=== PATIENT | male | born 1975 | race Caucasian/White ===

== ENCOUNTER → 2016-09-22 | Outpatient (CLI) | payer OTHER ==
[~2016-09-22] MED LIST: AMOX875T PO; APIX1TAB PO; ASCO500T3 PO; AZIT250T PO; BUDE180I INH; CALC500C70 PO; CHOL2000 PO; CLR10 PO; CPRDOTS OT; CRD30 PO; DICL1GEL34 TOP; DILT40TA PO; DNSIS60 INJ; DOCU-94 PO; DOXY100T PO; EPP3/2 IM; FOLI1TAB7 PO; GFNSR600 PO; LEVA45AE INH; LEVA45AE PO; LEVO25TA PO; LORA-741 PO; MOME200A INH; MULT-513 PO; NYSS5 PO; NYSTCRE11 EXT; OMEG10007 PO; PEDI1CHW PO; PLMIN200 INH; PRED10TA PO; PRLSR20 PO; RHNAQIN NAE; SNG10 PO; SPRIN/30 INH; STEROIDS PO; SYN25 PO; TIOTCAP INH; TRAMTAB5 PO; WARF10TA4 PO; WARF5TAB7 PO; WARF5TAB90 PO; XOPENEX INH; antibiotic PO
--- NOTE | 2016-09-22 10:58 | DIAGNOSTIC IMAGING REPORT ---
LUMBAR SPINE 5 VIEWS HISTORY: ACUTE THIGH PAIN, RIGHT/LOW BACK PAIN COMPARISON: Lumbar spine 05/04/2010. FINDINGS: There is no fracture. Moderate levoscoliosis persists. The sacrum appears intact. The bones remain osteopenic. Mild superior endplate compression deformities at T11, L1, and L4. These remain unchanged from the 08/02/2016 CT. No acute fracture or subluxation within the lumbar spine. This bases are relatively preserved. Patchy areas of sclerosis within the bilateral femoral head remains unchanged and favors avascular necrosis. There is no femoral head collapse at this time. IMPRESSION: 1. Moderate levoscoliosis. 2. Osteopenia. 3. Old mild superior endplate compression deformities at T11, L1, and L4. 3. No acute fractures within the lumbar spine. Electronically signed by: Lobo Wilkins M.D. 09/22/2016 10:56 AM Dictated Date/Time: 09/22/2016 10:52 AM
--- NOTE | 2016-09-22 11:27 | DIAGNOSTIC IMAGING REPORT ---
RIGHT LOWER EXTREMITY VENOUS DOPPLER HISTORY: ACUTE THIGH PAIN, RIGHT/LOW BACK PAIN Right COMPARISON STUDY: None. FINDINGS: There is normal compressibility, flow, and augmentation within the right lower extremity deep venous system. IMPRESSION: No DVT within the right lower extremity Electronically signed by: Lobo Wilkins M.D. 09/22/2016 11:26 AM Dictated Date/Time: 09/22/2016 11:25 AM
== END | disposition home or self-care (01) ==
LOC: C.ULTRBC 10:11
PROVIDERS: ATTEND Nurse Practitioner
DX: M54.5 Low back pain (principal); M85.80 Other specified disorders of bone density and structure, unspecified site

== ENCOUNTER 2016-10-11 19:26 | Emergency (ER) | payer OTHER ==
[~2016-10-11] VITALS: Ht 190.5 cm; Wt 70.2 kg
[~2016-10-11 19:26] MED LIST changes: -AMOX875T PO; -AZIT250T PO; -BUDE180I INH; -CALC500C70 PO; -CHOL2000 PO; -CLR10 PO; -CPRDOTS OT; -DICL1GEL34 TOP; -DILT40TA PO; -DNSIS60 INJ; -DOXY100T PO; -EPP3/2 IM; -GFNSR600 PO; -LEVA45AE PO; -LEVO25TA PO; -LORA-741 PO; -MOME200A INH; -MULT-513 PO; -NYSS5 PO; -OMEG10007 PO; -PRED10TA PO; -PRLSR20 PO; -RHNAQIN NAE; -SPRIN/30 INH; -STEROIDS PO; -TRAMTAB5 PO; -WARF10TA4 PO; -WARF5TAB7 PO; -XOPENEX INH
[2016-10-11 19:28] VITALS: TEMP 36.9; Ht 190.5 cm; Wt 70.2 kg
[2016-10-11] MEDS ORDERED: LEVA45AE PO (19:50)
[2016-10-11] MEDS ORDERED: SODIUM CHLORIDE 0.9% 1000ML 1,000 ML IV ONE (20:00)
[2016-10-11 20:08] VITALS: O2SAT 94
[2016-10-11 20:17] LABS: BASO % 0.3 %; BASO ABS # 0.01 K/uL (0-0.2); COMPLETE YES; EOS % 0.3 %; HEMATOCRIT 43.5 % (42-52); IG% 0.7 %; LYMPH % 22.6 %; LYMPH ABS # 0.65 K/uL (1.2-3.4); MEAN CORPUSCULAR HEMOGLOBIN 30.5 pg (25-34); MEAN CORPUSCULAR HGB CONC 33.6 g/dl (32-36); MEAN PLATELET VOLUME 9.6 fL (7.4-10.4); MONO % 13.9 %; NEUT % 62.2 %; PLATELET COUNT 130 K/uL (130-400); RED BLOOD COUNT 4.78 M/uL (4.7-6.1); WHITE BLOOD COUNT 2.87 K/uL (4.8-10.8)
[2016-10-11 20:27] LABS: PARTIAL THROMBOPLASTIN RATIO 1.5; PROTHROMBIN TIME (PATIENT) 21.8 SECONDS (9.0-12.0)
--- NOTE | 2016-10-11 20:31 | DIAGNOSTIC IMAGING REPORT ---
CT SCAN OF THE BRAIN WITHOUT IV CONTRAST CLINICAL HISTORY: Dizziness. COMPARISON STUDY: No priors. TECHNIQUE: Unenhanced axial CT scan of the brain is performed from the vertex to the skull base. Automated dose control exposure was utilized. The examination is degraded by motion artifact. CT DOSE: 1412.81 mGy.cm FINDINGS: Brain parenchyma: The brain parenchyma is normal in appearance. There is no hemorrhage, mass effect, or evidence of acute territorial ischemia by CT criteria. Magana-white matter is preserved. No extra-axial fluid collection is seen. Ventricles, sulci, cisterns: Normal in configuration. Intracranial vasculature: The visualized intracranial vasculature at the skull base is normal in appearance. Calvarium: The skeletal structures appear osteopenic. The skull is dolichocephalic in configuration. No destructive calvarial lesion is seen. Sinuses and mastoids: The visualized paranasal sinuses are clear. There are mastoid effusions, right larger than left. Orbits: The bony orbits are grossly intact. Bilateral ocular lens implants are suspected. IMPRESSION: There is no hemorrhage, mass effect, or evidence of acute territorial ischemia by CT criteria noting a motion degraded examination. Electronically signed by: Kyler Painter M.D. 10/11/2016 8:30 PM Dictated Date/Time: 10/11/2016 8:27 PM
[2016-10-11 20:44] LABS: BUN/CREATININE RATIO 15.2 (10-20); CALCIUM 8.8 mg/dl (8.5-10.1); CREATININE 0.82 mg/dl (0.60-1.40); POTASSIUM 4.2 mmol/L (3.5-5.1)
[2016-10-11] MEDS ORDERED: AZITHROMYCIN 250 MG TAB PO ONE (21:00)
[2016-10-11] MEDS ORDERED: AZIT250T PO (21:02)
[2016-10-11 21:19] VITALS: BP 122/88; PULSE 101; O2SAT 96
--- NOTE | 2016-10-12 15:24 | EMERGENCY ROOM VISIT NOTE ---
History First contact with patient: 19:36 Chief Complaint: DIZZY Stated Complaint: SOB, NECK PAIN, DIZZY, EARPAIN Nursing Triage Summary: c/o being dizzy since yesterday and right ear pain.denies cp History of Present Illness The patient is a 41 year old male who presents to the Emergency Room with complaints of dizziness for the past one day. The patient is also complaining of right ear pain. He has some ongoing chronic anterior chest wall pain that is typical for him as well. The patient has not had fever or chills. He is followed by ENT as he has some anatomic deformity of his eustachian tubes that predispose him to ear infections. The patient has not taken anything over-the- counter for his discomfort. He states at times he feels like he is spinning. He does not feel like he is going to black out or faint. No shortness of breath or palpitations. No changes in medication. He is on warfarin for a history of PEs. Review of Systems More than 10 systems were reviewed and otherwise negative with the exception of history of present illness. Past Medical/Surgical History Medical Problems: (1) Aspiration pneumonia (2) Pneumonia Family History Diabetes mellitus FH: cancer Hypertension Social History Smoking Status: Never Smoker Alcohol Use: none Drug Use: none Marital Status: Occupation Status: retired Current/Historical Medications Scheduled Ascorbic Acid (Vitamin C), 500 MG PO BID Azithromycin (Zithromax), 250 MG PO DAILY Budesonide (Pulmicort Inhaler *), 1 PUFF INH BID Calcium/Vitamin D (Os-Tommy 500 Plus D), 600 MG PO BID Cholecalciferol (Vitamin D3), 2,000 INTER.UNIT PO DAILY Diltiazem Hcl (Cardizem *), 60 MG PO DAILY Fish Oil ([place]-3), 1 CAP PO DAILY Folic Acid (Folvite), 400 MCG PO DAILY Levalbuterol Tartrate (Levalbuterol Tartrate Hfa), 2 PUFF PO BID Levothyroxine (Synthroid *), 0.025 MG PO DAILY Loratadine (Claritin), 10 MG PO DAILY Mometasone Furoate-Formoterol (Dulera 200/5 Mcg), 2 PUFFS INH BID Omeprazole (Prilosec), 40 MG PO DAILY Pediatric Multiple Vitamin W/ (Complete Formulation Mult), 1 DOSE PO DAILY Tiotropium [place] (Spiriva Handihaler), 1 CAP INH DAILY Warfarin Sod (Jantoven), 15 MG PO DIRECTED Warfarin Sod (Jantoven), 10 MG PO DIRECTED Miscellaneous Medications Montelukast (Singulair *), 10 MG PO Allergies Coded Allergies: Gluten (Verified Allergy, Unknown, patient preference-gluten free, 10/11/16) Oxycodone (Verified Adverse Reaction, Mild, GI upset , 10/11/16) Ciprofloxacin (Verified Adverse Reaction, Unknown, issue with legs , ) Physical Exam Vital Signs Date Time Temp Pulse Resp B/P Pulse Ox O2 Delivery O2 Flow Rate FiO2 10/11/16 21:19 101 18 122/88 96 10/11/16 20:08 94 Room Air 10/11/16 20:06 88 18 169/81 94 Room Air 10/11/16 19:47 102 10/11/16 19:28 36.9 123 24 125/71 97 Room Air Pain Rating (0-10): 1.0 Physical Exam VITALS: Vitals are noted on the nurse's note and reviewed by myself. Vital signs stable. GENERAL: Well-developed, well-nourished, white male, who is in no acute distress and resting comfortably. Patient is cooperative with the examination. HEAD: Normocephalic atraumatic. EARS: External ear normal. External auditory canals clear. Left tympanic membrane is pearly and appears normal. Right TM is slightly bulging with bullae. No mastoid tenderness. EYES: Pupils equal round and reactive to light and accommodation. Conjunctivae without injection, sclerae without icterus. Extraocular movements intact. NOSE: Patent, turbinates without inflammation or discharge. MOUTH: Mucous membranes moist. Tonsils are not enlarged. Pharynx without erythema, blood, or exudate. Uvula midline. Airway patent. NECK: Supple without nuchal rigidity. No lymphadenopathy. No thyromegaly. Cervical spine is nontender. HEART: Regular rate and rhythm without murmurs gallops or rubs. LUNGS: Clear to auscultation bilaterally without wheezes, rales or rhonchi. No retractions or accessory muscle use. ABDOMEN: Positive normal bowel sounds x 4. Soft, nontender, without masses or organomegaly. No guarding or rebound tenderness. Medical Decision & Procedures ER Provider Diagnostic Interpretation: CT SCAN OF THE BRAIN WITHOUT IV CONTRAST CLINICAL HISTORY: Dizziness. COMPARISON STUDY: No priors. TECHNIQUE: Unenhanced axial CT scan of the brain is performed from the vertex to the skull base. Automated dose control exposure was utilized. The examination is degraded by motion artifact. CT DOSE: 1412.81 mGy.cm FINDINGS: Brain parenchyma: The brain parenchyma is normal in appearance. There is no hemorrhage, mass effect, or evidence of acute territorial ischemia by CT criteria. [place]-white matter is preserved. No extra-axial fluid collection is seen. Ventricles, sulci, cisterns: Normal in configuration. Intracranial vasculature: The visualized intracranial vasculature at the skull base is normal in appearance. Calvarium: The skeletal structures appear osteopenic. The skull is dolichocephalic in configuration. No destructive calvarial lesion is seen. Sinuses and mastoids: The visualized paranasal sinuses are clear. There are mastoid effusions, right larger than left. Orbits: The bony orbits are grossly intact. Bilateral ocular lens implants are suspected. IMPRESSION: There is no hemorrhage, mass effect, or evidence of acute territorial ischemia by CT criteria noting a motion degraded examination. Laboratory Results 10/11/16 20:07 Red Blood Count 4.78, Mean Corpuscular Volume 91.0, Mean Corpuscular Hemoglobin 30.5, Mean Corpuscular Hemoglobin Concent 33.6, Mean Platelet Volume 9.6, Neutrophils (%) (Auto) 62.2, Lymphocytes (%) (Auto) 22.6, Monocytes (%) (Auto) 13.9, Eosinophils (%) (Auto) 0.3, Basophils (%) (Auto) 0.3, Neutrophils # (Auto ) 1.78, Lymphocytes # (Auto) 0.65, Monocytes # (Auto) 0.40, Eosinophils # (Auto ) 0.01, Basophils # (Auto) 0.01 10/11/16 20:07 Test 10/11/16 20:07 10/11/16 20:16 White Blood Count 2.87 K/uL (4.8-10.8) Red Blood Count 4.78 M/uL (4.7-6.1) Hemoglobin 14.6 g/dL (14.0-18.0) Hematocrit 43.5 % (42-52) Mean Corpuscular Volume 91.0 fL (80-100) Mean Corpuscular Hemoglobin 30.5 pg (25-34) Mean Corpuscular Hemoglobin Concent 33.6 g/dl (32-36) Platelet Count 130 K/uL (130-400) Mean Platelet Volume 9.6 fL (7.4-10.4) Neutrophils (%) (Auto) 62.2 % Lymphocytes (%) (Auto) 22.6 % Monocytes (%) (Auto) 13.9 % Eosinophils (%) (Auto) 0.3 % Basophils (%) (Auto) 0.3 % Neutrophils # (Auto) 1.78 K/uL (1.4-6.5) Lymphocytes # (Auto) 0.65 K/uL (1.2-3.4) Monocytes # (Auto) 0.40 K/uL (0.11-0.59) Eosinophils # (Auto) 0.01 K/uL (0-0.5) Basophils # (Auto) 0.01 K/uL (0-0.2) RDW Standard Deviation 52.8 fL (36.4-46.3) RDW Coefficient of Variation 15.7 % (11.5-14.5) Immature Granulocyte % (Auto) 0.7 % Immature Granulocyte # (Auto) 0.02 K/uL (0.00-0.02) Prothrombin Time 21.8 SECONDS (9.0-12.0) Prothromb Time International Ratio 2.0 (0.9-1.1) Activated Partial Thromboplast Time 39.4 SECONDS (21.0-31.0) Partial Thromboplastin Ratio 1.5 Anion Gap 12.0 mmol/L (3-11) Est Creatinine Clear Calc Drug Dose 116.5 ml/min Estimated GFR () 126.4 Estimated GFR (Non- 109.1 BUN/Creatinine Ratio 15.2 (10-20) Calcium Level 8.8 mg/dl (8.5-10.1) Total Bilirubin 0.6 mg/dl (0.2-1) Aspartate Amino Transf (AST/SGOT) 17 U/L (15-37) Alanine Aminotransferase (ALT/SGPT) 38 U/L (12-78) Alkaline Phosphatase 71 U/L (45-117) Total Protein 7.3 gm/dl (6.4-8.2) Albumin 3.7 gm/dl (3.4-5.0) Globulin 3.6 gm/dl (2.5-4.0) Albumin/Globulin Ratio 1.0 (0.9-2) Bedside Troponin I 0.000 ng/ml (0-0.045) Medications Administered Medications (Trade) Dose Ordered Sig/Dena Route Start Time Stop Time Status Last Admin Dose Admin Sodium Chloride (Nss 1000ml) 1,000 ml @ 999 mls/hr Q1H1M ONCE IV 10/11/16 20:00 10/11/16 21:00 DC 10/11/16 20:03 999 MLS/HR Azithromycin (Zithromax Tab) 500 mg NOW ONCE PO 10/11/16 21:00 10/11/16 21:02 DC 10/11/16 21:14 500 MG ED Course Physical exam and history were performed. Nursing notes and EMR were reviewed. Patient appears to have vertiginous symptoms and right ear pain for the past one day. The patient does not appear toxic on examination. IV access was established and labs were obtained. He was hydrated with normal saline. Because of his past history and symptoms today did elect perform a CT scan of the head. EKG was normal sinus rhythm without acute ST elevation. The patient's blood work is as above and was reviewed.Patient does not have a significantly elevated white blood cell count, gross anemia, bandemia, or significant electrolyte imbalance. Troponin 1 is negative. INR is 2.0. CT scan of the head does not show acute process. Overall the patient appears well. His primary exam finding is bulla on the right tympanic membrane, which may represent mycoplasma process. The patient was started on Zithromax here in the department and will be given a continuation course of the medicine. He has an appointment in 2 days with his PCP, and was asked to keep his appointment. He was otherwise invited back to the ER with any new, worsening, or concerning symptoms. The chart was completed utilizing [employer] Speech Voice Recognition Software. Grammatical errors, random word insertions, pronoun errors, and incomplete sentences are an occasional consequence of this system due to software limitations, ambient noise, and hardware issues. Any formal questions or concerns about the content, text, or information contained within the body of this dictation should be directly addressed to the provider for clarification. . Medical Decision Differential diagnosis: Etiologies such as benign positional vertigo, dehydration, hypovolemia, anemia, tumor, infection, hypoglycemia, electrolyte abnormalities, cardiac sources, intracerebral event, toxicologic, neurologic, as well as others were entertained. Impression Primary Impression: Dizziness Additional Impression: Right otitis media Departure Information Dispostion Home / Self-Care Condition GOOD Prescriptions Azithromycin (Zithromax) 250 Mg Tab 250 MG PO DAILY for 4 Days, #4 TAB Prov: Saeed Kimball PA-C 10/11/16 Forms HOME CARE DOCUMENTATION FORM, IMPORTANT VISIT INFORMATION Patient Instructions My [facility] Additional Instructions You were seen and evaluated today on an emergency basis only. This is not a substitute for, or an effort to provide, complete comprehensive medical care. It is not possible to recognize and treat all injuries or illnesses in a single emergency department visit. For this reason it is recommended that you followup with your doctor on Tuesday as scheduled. Take Zithromax 250 mg daily for the next 4 days Drink plenty fluids and remain well hydrated You are welcome to return to the emergency department anytime with new, worsening, or concerning symptoms. Problem Qualifiers
[2016-10-15] MEDS ORDERED: MOME200A INH (01:11)
[2016-10-15] MEDS ORDERED: OMEG10007 PO (01:15)
[2016-10-15] MEDS ORDERED: CHOL2000 PO (01:18)
[2016-10-15] MEDS ORDERED: CALC500C70 PO (01:19)
[2016-10-15] MEDS ORDERED: PRLSR20 PO (11:31)
[2016-10-15] MEDS ORDERED: CLR10 PO (11:31)
[2017-02-28] MEDS ORDERED: DNSIS60 INJ (10:32)
[2017-02-28] MEDS ORDERED: CPRDOTS OT (10:32)
[2017-02-28] MEDS ORDERED: EPP3/2 IM (10:32)
[2017-02-28] MEDS ORDERED: DICL1GEL34 TOP (10:32)
[2017-02-28] MEDS ORDERED: RHNAQIN NAE (10:32)
[2017-02-28] MEDS ORDERED: LORA-741 PO (10:32)
[2017-03-12] MEDS ORDERED: TRAMTAB5 PO (09:26)
== END 2016-10-11 21:21 | disposition home or self-care (01) ==
LOC: C.EDB 19:28 → C.EDA 21:21
DX: R42 Dizziness and giddiness (principal); H66.91 Otitis media, unspecified, right ear; Z86.711 Personal history of pulmonary embolism; Z79.01 Long term (current) use of anticoagulants; Z79.899 Other long term (current) drug therapy; Z83.3 Family history of diabetes mellitus; Z80.9 Family history of malignant neoplasm, unspecified; Z82.49 Family history of ischemic heart disease and other diseases of the circulatory system

== ENCOUNTER 2016-10-15 18:52 | Inpatient (IN) | payer OTHER ==
[~2016-10-15] VITALS: Ht 188 cm; Wt 66.7 kg
[~2016-10-15 18:52] MED LIST changes: -APIX1TAB PO; +AZIT250T PO; +CALC500C70 PO; +CHOL2000 PO; +CLR10 PO; -DOCU-94 PO; -LEVA45AE INH; +LEVA45AE PO; +MOME200A INH; -NYSTCRE11 EXT; +OMEG10007 PO; +PRLSR20 PO; -WARF5TAB90 PO; -antibiotic PO
[2016-10-15] MEDS ORDERED: ALBUT/IPRATROP 3MG/0.5MG NEB 3 ML VIAL INH STA (19:42)
[2016-10-15] MEDS ORDERED: WARF5TAB7 PO (19:52)
[2016-10-15] MEDS ORDERED: WARF10TA4 PO (19:52)
[2016-10-15 20:03] LABS: HEMATOCRIT 44.8 % (42-52); MEAN CELL VOLUME 88.7 fL (80-100); MEAN CORPUSCULAR HEMOGLOBIN 30.7 pg (25-34); MEAN CORPUSCULAR HGB CONC 34.6 g/dl (32-36); RED BLOOD COUNT 5.05 M/uL (4.7-6.1); WHITE BLOOD COUNT 2.56 K/uL (4.8-10.8)
[2016-10-15] MEDS ORDERED: LEVALBUTEROL/IPRATROPIUM NEB INH STA (20:10)
[2016-10-15 20:20] LABS: BUN/CREATININE RATIO 20.8 (10-20); CALCIUM 8.2 mg/dl (8.5-10.1); CREATININE 0.64 mg/dl (0.60-1.40); POTASSIUM 3.7 mmol/L (3.5-5.1)
[2016-10-15 20:21] LABS: PLATELET COUNT 91 K/uL (130-400)
[2016-10-15 20:22] LABS: ALB/GLOB RATIO 0.8 (0.9-2); BASO % 0.4 %; BASO ABS # 0.01 K/uL (0-0.2); COMPLETE YES; IG% 0.8 %; LYMPH % 14.8 %; LYMPH ABS # 0.38 K/uL (1.2-3.4); MEAN PLATELET VOLUME 10.4 fL (7.4-10.4); MONO % 4.7 %; NEUT % 79.3 %; PLT ESTIMATE DECREASED
[2016-10-15 20:23] VITALS: PULSE 108; O2SAT 95
[2016-10-15 20:23] LABS: INR 4.3 (0.9-1.1); PARTIAL THROMBOPLASTIN RATIO 2.3; PROTHROMBIN TIME (PATIENT) 49.3 SECONDS (9.0-12.0)
[2016-10-15] MEDS ORDERED: XOPENEX INH (20:34)
[2016-10-15] MEDS ORDERED: SNG10 PO (20:34)
[2016-10-15] MEDS ORDERED: MULT-513 PO (20:34)
[2016-10-15] MEDS ORDERED: BUDE180I INH (20:34)
[2016-10-15] MEDS ORDERED: LEVO25TA PO (20:34)
[2016-10-15] MEDS ORDERED: DILT40TA PO (20:34)
[2016-10-15] MEDS ORDERED: SPRIN/30 INH (20:34)
[2016-10-15] MEDS ORDERED: STEROIDS PO (20:37)
[2016-10-15] MEDS ORDERED: DOXY100T PO (20:37)
--- NOTE | 2016-10-15 20:45 | DIAGNOSTIC IMAGING REPORT ---
CHEST ONE VIEW PORTABLE HISTORY: Sepsis COMPARISON: Chest 07/30/2016. FINDINGS: No pneumothorax. No pleural effusions. The heart remains mildly enlarged. Left lower lobe airspace opacity. Right basilar interstitial thickening persists. There are slight increased density within the right medial lung base. IMPRESSION: Bilateral lower lobe airspace opacities, left greater than right. This likely represents a pneumonia. Recommend follow up to resolution. Electronically signed by: Lobo Wilkins M.D. 10/15/2016 8:44 PM Dictated Date/Time: 10/15/2016 8:43 PM
[2016-10-15] MEDS ORDERED: PIPERACILLIN/TAZOBACTAM 4.5 GM/100ML D5W IV STA (21:17)
[2016-10-15] MEDS ORDERED: WARFARIN SOD 5 MG TAB PO SCH ×2 (21:45)
[2016-10-15] MEDS ORDERED: ACETAMINOPHEN 325 MG TAB PO PRN (21:45)
[2016-10-15] MEDS ORDERED: ZOLPIDEM TARTRATE 5 MG TAB PO PRN (21:45)
[2016-10-15] MEDS ORDERED: ONDANSETRON INJ 2 MG/ML 2 ML VIAL IV PRN (22:00)
--- NOTE | 2016-10-15 22:03 | EMERGENCY ROOM VISIT NOTE ---
History Report prepared by Baldev: Sally Miranda Under the Supervision of: Dr. Arnuad Bourgeois M.D. First contact with patient: 19:29 Chief Complaint: RESPIRATORY PROBLEMS Stated Complaint: OXYGEN LEVEL 86 Nursing Triage Summary: Oxygen 88-92% on RA, fevers. Case Investigator put pt on steroids and Doxycycline. referred here by Case Investigator. Tylenol at 1600. throat pain, cough. lower lobes diminished, so unable to cough out per History of Present Illness The patient is a 41 year old male who presents to the Emergency Room with complaints of worsening respiratory problems for the past few days. He is accompanied by his and son. His reports he has been having difficulty breathing recently and developed a fever 4 days ago. He has been taking Tylenol for the fever, and last had Tylenol at 1600 today. He saw his Case Investigator for his recent breathing issues and was placed on Doxycycline and steroids. He has had 1 dose of each so far today. The patients Oxygen was found to be between 88 and 92% on room air this afternoon, so his family spoke to the mail room, who recommended he come to the ED for further evaluation. The patient is normally on inhalers at home and nebulizers when needed. His also reports he is "too weak" to cough out any of the mucous his cough produces because he has severe scoliosis and pectus excavatum. The patient denies any chest pain or leg pain or swelling. Source of History: patient, spouse/significant other () Onset: past few days Position: chest Timing: worsening Associated Symptoms: + cough, + weakness, No chest pain Review of Systems See HPI for pertinent positives & negatives. A total of 10 systems reviewed and were otherwise negative. Past Medical & Surgical Medical Problems: (1) Aspiration pneumonia (2) Hypoxia (3) Pneumonia (4) Pneumonia of both lower lobes Family History Diabetes mellitus FH: cancer Hypertension Social History Smoking Status: Never Smoker Alcohol Use: none Drug Use: none Marital Status: Housing Status: lives with family Occupation Status: retired Current/Historical Medications Scheduled Ascorbic Acid (Vitamin C), 500 MG PO BID Azithromycin (Zithromax), 250 MG PO DAILY Budesonide (Inhalation) (Pulmicort Flexhaler), 2 PUFFS INH BID Calcium/Vitamin D (Os-Tommy 500 Plus D), 600 MG PO BID Cholecalciferol (Vitamin D3), 2,000 INTER.UNIT PO DAILY Diltiazem Hcl (Cardizem), 1 TAB PO DAILY Doxycycline Hyclate (Doxycycline Hyclate), 1 TAB PO Q12 Fish Oil ([place]-3), 1 CAP PO DAILY Levalbuterol Tartrate (Levalbuterol Tartrate Hfa), 2 PUFF PO BID Levothyroxine Sodium (Synthroid), 25 MCG PO DAILY Loratadine (Claritin), 10 MG PO DAILY Mometasone Furoate-Formoterol (Dulera 200/5 Mcg), 2 PUFFS INH BID Montelukast Sod (Montelukast Sodium), 10 MG PO QPM Multivitamins/Minerals (Mvi With Minerals), 1 TAB PO DAILY Omeprazole (Prilosec), 40 MG PO DAILY Tiotropium [place] (Spiriva Handihaler), 1 CAP INH DAILY Warfarin Sod (Jantoven), 15 MG PO DIRECTED Warfarin Sod (Jantoven), 10 MG PO DIRECTED [Steroids], PO TAPER UD Scheduled PRN [Xopenex], 1 DOSE INH Q4-6HRS PRN for SOB/Wheezing Allergies Coded Allergies: Gluten (Verified Allergy, Unknown, patient preference-gluten free, 10/11/16) Oxycodone (Verified Adverse Reaction, Mild, GI upset , 10/11/16) Ciprofloxacin (Verified Adverse Reaction, Unknown, issue with legs , ) Physical Exam Vital Signs Date Time Temp Pulse Resp B/P Pulse Ox O2 Delivery O2 Flow Rate FiO2 10/15/16 20:51 94 Nasal Cannula 2.0 10/15/16 20:51 38.2 10/15/16 20:46 105 20 106/64 91 Room Air 10/15/16 20:23 108 16 95 Room Air 10/15/16 20:00 106 20 104/65 91 10/15/16 19:34 111 10/15/16 19:27 91 Room Air 10/15/16 18:57 91 Room Air 10/15/16 18:53 38.1 99 18 108/71 91 Room Air Physical Exam Constitutional: Vital signs reviewed. Eyes: Pupils are equal round reactive to light. Conjunctiva are noninjected. ENT: Pharynx is clear without erythema or exudate. Mucous membranes are moist. Neck supple without meningeal signs. Respiratory: Scattered rhonchi bilaterally. Breath sounds are equal bilaterally. Cardiovascular: Tachycardic. Heart rate 105. No rubs or gallops. GI: Soft, nondistended and nontender. Bowel sounds are present. Musculoskeletal: No peripheral edema. No lower extremity tenderness. Integumentary: No cyanosis. Neurological: The patient is awake and alert. No focal deficits. Psychiatric: Normal affect. Medical Decision & Procedures ER Provider Diagnostic Interpretation: This X-Ray was reviewed and interpreted by myself and the radiologist. CHEST ONE VIEW PORTABLE HISTORY: Sepsis COMPARISON: Chest 07/30/2016. FINDINGS: No pneumothorax. No pleural effusions. The heart remains mildly enlarged. Left lower lobe airspace opacity. Right basilar interstitial thickening persists. There are slight increased density within the right medial lung base. IMPRESSION: Bilateral lower lobe airspace opacities, left greater than right. This likely represents a pneumonia. Recommend follow up to resolution. Electronically signed by: Lobo Wilkins M.D. 10/15/2016 8:44 PM Laboratory Results 10/15/16 19:45 Red Blood Count 5.05, Mean Corpuscular Volume 88.7, Mean Corpuscular Hemoglobin 30.7, Mean Corpuscular Hemoglobin Concent 34.6, Mean Platelet Volume 10.4, Neutrophils (%) (Auto) 79.3, Lymphocytes (%) (Auto) 14.8, Monocytes (%) (Auto) 4.7, Eosinophils (%) (Auto) 0.0, Basophils (%) (Auto) 0.4, Neutrophils # (Auto) 2.03, Lymphocytes # (Auto) 0.38, Monocytes # (Auto) 0.12, Eosinophils # (Auto) 0.00, Basophils # (Auto) 0.01 10/15/16 19:45 Test 10/15/16 00:00 10/15/16 19:45 10/15/16 19:53 10/15/16 19:58 Influenza Type A Antigen Neg for Influ A (NEG) Influenza Type B Antigen Neg for Influ B (NEG) White Blood Count 2.56 K/uL (4.8-10.8) Red Blood Count 5.05 M/uL (4.7-6.1) Hemoglobin 15.5 g/dL (14.0-18.0) Hematocrit 44.8 % (42-52) Mean Corpuscular Volume 88.7 fL (80-100) Mean Corpuscular Hemoglobin 30.7 pg (25-34) Mean Corpuscular Hemoglobin Concent 34.6 g/dl (32-36) Platelet Count 91 K/uL (130-400) Mean Platelet Volume 10.4 fL (7.4-10.4) Neutrophils (%) (Auto) 79.3 % Lymphocytes (%) (Auto) 14.8 % Monocytes (%) (Auto) 4.7 % Eosinophils (%) (Auto) 0.0 % Basophils (%) (Auto) 0.4 % Neutrophils # (Auto) 2.03 K/uL (1.4-6.5) Lymphocytes # (Auto) 0.38 K/uL (1.2-3.4) Monocytes # (Auto) 0.12 K/uL (0.11-0.59) Eosinophils # (Auto) 0.00 K/uL (0-0.5) Basophils # (Auto) 0.01 K/uL (0-0.2) RDW Standard Deviation 51.2 fL (36.4-46.3) RDW Coefficient of Variation 15.8 % (11.5-14.5) Immature Granulocyte % (Auto) 0.8 % Immature Granulocyte # (Auto) 0.02 K/uL (0.00-0.02) Platelet Estimate DECREASED Prothrombin Time 49.3 SECONDS (9.0-12.0) Prothromb Time International Ratio 4.3 (0.9-1.1) Activated Partial Thromboplast Time 59.5 SECONDS (21.0-31.0) Partial Thromboplastin Ratio 2.3 Anion Gap 12.0 mmol/L (3-11) Est Creatinine Clear Calc Drug Dose 140.4 ml/min Estimated GFR () 140.0 Estimated GFR (Non- 120.8 BUN/Creatinine Ratio 20.8 (10-20) Calcium Level 8.2 mg/dl (8.5-10.1) Total Bilirubin 0.6 mg/dl (0.2-1) Aspartate Amino Transf (AST/SGOT) 29 U/L (15-37) Alanine Aminotransferase (ALT/SGPT) 28 U/L (12-78) Alkaline Phosphatase 57 U/L (45-117) Total Protein 6.9 gm/dl (6.4-8.2) Albumin 3.1 gm/dl (3.4-5.0) Globulin 3.8 gm/dl (2.5-4.0) Albumin/Globulin Ratio 0.8 (0.9-2) Bedside Lactic Acid Venous 1.16 mmol/L (0.90-1.70) Bedside Troponin I 0.000 ng/ml (0-0.045) Laboratory results as reviewed by me. Medications Administered Medications (Trade) Dose Ordered Sig/Dena Route Start Time Stop Time Status Last Admin Dose Admin Miscellaneous (Xopenex/ Atrovent Neb) 1 ea NOW STAT INH 10/15/16 20:10 10/15/16 20:12 DC 10/15/16 20:23 1 EA Piperacillin Sod/ Tazobactam Sod (Zosyn Iv) 4.5 gm NOW STAT IV 10/15/16 21:17 10/15/16 21:18 DC 10/15/16 21:27 4.5 GM ECG Indication: SOB/dyspnea Rate (beats per minute): 108 Rhythm: sinus tachycardia Findings: nonspecific-ST abn (nonspecific ST and T wave changes), no ectopy ED Course 1936: The patient was evaluated in room A11. A complete history and physical exam was performed. 2009: Xopenex/Atrovent Neb 1 ea INH. 2114: I reevaluated the patient. His breath sounds are clear and his heart rate is 99. I discussed his test results and he and his verbalized complete understanding and agreement. 2116: Zosyn 4.5 m IV. 2129: I discussed the patients case with Dr. Gray, [facility] Hospitalist. The patient will be further evaluated. Medical Decision This is a 41-year-old male who presents with shortness of breath and fever. Differential diagnosis includes pneumonia, bronchitis, influenza, sepsis, SIRS. I did perform a limited focused review of portions of the patient's old chart on the electronic medical record. The patient was seen here 5 days ago for dizziness, ear pain and chronic chest pain. He produced an unremarkable CT scan of the brain. His WBC was 2.8. He was treated with Azithromycin for right otitis media. I did evaluate the patient as noted above. IV access was established. The patient was placed on a continuous court monitor. I did treat him with a Xopenex and Atrovent nebulizer. I did order and personally review the patient's 12-lead EKG and chest x-ray as described above. His chest x-ray demonstrates bilateral infiltrates. I did order 2 sets of blood cultures. I did treat him with Zosyn IV. I did order and review the patient's blood work as noted in the electronic medical record. He has leukopenia. He is also thrombocytopenic. His INR is supratherapeutic. I did reassess the patient. He is feeling better. His heart rate is 99. Lungs are clear to auscultation. I did discuss the test results with the patient and his . I did recommend hospitalization for IV antibiotics and further care. I did discuss case with the hospitalist and case briefer. Consults Time Called: 2123 Consulting Physician: Dr. Gray [facility] Hospitalist Returned Call: 2129 I discussed the patients case with Dr. Gray [facility] Hospitalist. The patient will be further evaluated. Impression Primary Impression: Bilateral pneumonia Additional Impressions: Hypoxia Supratherapeutic INR Thrombocytopenia Leukopenia Scribe Attestation The scribe's documentation has been prepared under my direct and personally reviewed by me in its entirety. I confirm that the note above accurately reflects all work, treatment, procedures, and medical decision making performed by me. Departure Information Dispostion Being Evaluated By Hospitalist Barrington Poe M.D. (PCP) Patient Instructions My [facility] Problem Qualifiers Primary Impression: Bilateral pneumonia Pneumonia type: due to unspecified organism Lung location: lower lobe of lung Qualified Codes: J18.9 - Pneumonia, unspecified organism Additional Impressions: Leukopenia Leukopenia type: unspecified Qualified Codes: D72.819 - Decreased white blood cell count, unspecified
[2016-10-15] MEDS ORDERED: IPRATROPIUM BROMIDE NEB SOLN 0.02% 2.5 ML VIAL INH PRN (22:15)
[2016-10-15] MEDS ORDERED: LEVALBUTEROL 1.25MG/0.5ML NEB INH PRN (22:15)
[2016-10-15] MEDS ORDERED: VANCOMYCIN INJ 1,600 MG in SODIUM CHLORIDE 0.9% 500ML 500 ML IV STA (22:27)
--- NOTE | 2016-10-15 22:35 | Pharmacy Progress Note ---
Pharmacy Antibiotic Consult Date of Service: Oct 15, 2016. Pharmacy Dosing Scope Pharmacy is consulted to initiate IV VANCOMYCIN and ZOSYN therapy, order appropriate labs and adjust drug dose/frequency. Subjective The patient is a 41 year old male admitted on 10/15/16 for c/o fever, cough, hypoxia, and sore throat; found to have bilateral pneumonia and leukopenia. Objective Height (Feet): 6 Height (Inches): 2.00 Weight (Kilograms): 66.000 Lab Results (24hrs): Laboratory Tests Test 10/15/16 19:45 BUN/Creatinine Ratio 20.8 Blood Urea Nitrogen 13 mg/dl Creatinine 0.64 mg/dl White Blood Count 2.56 K/uL Red Blood Count 5.05 M/uL Hemoglobin 15.5 g/dL Hematocrit 44.8 % Mean Corpuscular Volume 88.7 fL Mean Corpuscular Hemoglobin 30.7 pg Mean Corpuscular Hemoglobin Concent 34.6 g/dl Platelet Count 91 K/uL Mean Platelet Volume 10.4 fL Neutrophils (%) (Auto) 79.3 % Lymphocytes (%) (Auto) 14.8 % Monocytes (%) (Auto) 4.7 % Eosinophils (%) (Auto) 0.0 % Basophils (%) (Auto) 0.4 % Neutrophils # (Auto) 2.03 K/uL Lymphocytes # (Auto) 0.38 K/uL Monocytes # (Auto) 0.12 K/uL Eosinophils # (Auto) 0.00 K/uL Basophils # (Auto) 0.01 K/uL Micro Results: BLCX's x 2 ordered Assessment & Plan * 41 yo male admitted w/ fever, cough, hypoxia, sore throat; found to bilateral pnx and leukopenia (WBC = 2.6) * he was recently treated with azithromycin for otitis media * h/o aspiration pnx, asthma and aspergillus infxn VANCOMYCIN * Loading dose: 1600mg (~24mg/kg) x 1 to quickly achieve a peak conc 30-35mcg/mL * Maintenance dose 1300mg (~20mg/kg) IV Q 10 hours * Goal trough: 15-20mcg/mL for pulm infxn * Will check trough w/ 3rd maintenance dose given difficulty calculating renal clearance in this patient * P'kinetic estimates: half-life ~6-7 hours; Jostin 0.106-0.112 hr-1; Vd 0.7L/kg ZOSYN * 3.375gm IV (over 4 hours) Q 8 hours indicated for eCrCl > 20cc/min Pharmacy will continue to follow and will adjust dose/frequency as necessary. Thank you
[2016-10-15 23:39] VITALS: BP 103/65; PULSE 103; TEMP 37.2; O2SAT 93; Ht 188 cm; Wt 66.7 kg
[2016-10-15] MEDS ORDERED: VANCOMYCIN CONSULT ACTIVE PRN (23:45)
[2016-10-15] MEDS ORDERED: PIPERACILL/TAZOBAC CONSULT ACTIVE PRN (23:45)
[2016-10-15 23:54] VITALS: O2SAT 93
[2016-10-16] VITALS (14 sets, daily range): BP systolic 102–121; BP diastolic 68–76; PULSE 81–108; TEMP 36.5–36.9; O2SAT 90–96
[2016-10-16] MEDS: METHYLPREDNISOLONE IV 60 MG in SYRINGE 0 ML IV SCH ×2 (00:04→06:15)
--- NOTE | 2016-10-16 01:05 | History and Physical ---
History & Physical Date & Time of Service: Oct 16, 2016 at 00:50 Chief Complaint: Hypoxia, Pneumonia Of Both Lower Lobes Primary Care Physician: Barrington Adorno M.D. History of Present Illness Source: patient, family The patient is a 41-year-old male who presents emergency department with the initial development of a temperature 4 days ago, and progressively worsening shortness of breath over the past few days. He did see his cloth printing inspector, who started him on doxycycline and prednisone, of which she's had one dose so far. Because of worsening symptoms his cloth printing inspector recommended referral to the emergency department for assessment. He does use his inhalers and nebulizers at home as directed, but has been too weak to cough up any mucus, in part aggravated by severe scoliosis and pectus excavatum. Family History Diabetes mellitus FH: cancer Hypertension Social History Smoking Status: Never Smoker Smokeless Tobacco Use: No Alcohol Use: none Drug Use: none Marital Status: Housing status: lives with family Occupational Status: retired Multi-Drug Resistant Organisms History of MDRO: No Allergies Coded Allergies: Gluten (Verified Allergy, Unknown, patient preference-gluten free, 10/11/16) Oxycodone (Verified Adverse Reaction, Mild, GI upset , 10/11/16) Ciprofloxacin (Verified Adverse Reaction, Unknown, issue with legs , ) Home Medications Scheduled Ascorbic Acid (Vitamin C), 500 MG PO BID Budesonide (Inhalation) (Pulmicort Flexhaler), 2 PUFFS INH BID Calcium/Vitamin D (Os-Tommy 500 Plus D), 600 MG PO BID Cholecalciferol (Vitamin D3), 2,000 INTER.UNIT PO DAILY Diltiazem Hcl (Cardizem), 1 TAB PO DAILY Doxycycline Hyclate (Doxycycline Hyclate), 1 TAB PO Q12 Fish Oil ([place]-3), 1 CAP PO DAILY Levalbuterol Tartrate (Levalbuterol Tartrate Hfa), 2 PUFF PO BID Levothyroxine Sodium (Synthroid), 25 MCG PO DAILY Loratadine (Claritin), 10 MG PO DAILY Mometasone Furoate-Formoterol (Dulera 200/5 Mcg), 2 PUFFS INH BID Montelukast Sod (Montelukast Sodium), 10 MG PO QPM Multivitamins/Minerals (Mvi With Minerals), 1 TAB PO DAILY Omeprazole (Prilosec), 40 MG PO DAILY Tiotropium [place] (Spiriva Handihaler), 1 CAP INH DAILY Warfarin Sod (Jantoven), 15 MG PO DIRECTED Warfarin Sod (Jantoven), 10 MG PO DIRECTED [Steroids], PO TAPER UD Scheduled PRN [Xopenex], 1 DOSE INH Q4-6HRS PRN for SOB/Wheezing Review of Systems The patient denies chest pain, palpitations, lower extremity swelling, vision change, hearing change, sore throat, chills, sweats, weight change, nausea, vomiting, abdominal pain, pelvic pain, blood in urine or stool, dysuria, urinary frequency or urgency, lightheadedness, dizziness, headache, memory loss , rash, abnormal bruising or bleeding, imbalance, focal weakness, numbness or tingling in arms or legs, arthralgias or myalgias, back or neck pain, night sweats. The review of systems is otherwise negative other than for that already noted above, and at least 10 systems have been reviewed. Physical Exam Vital Signs Date Time Temp Pulse Resp B/P Pulse Ox O2 Delivery O2 Flow Rate FiO2 10/15/16 23:54 93 Nasal Cannula 2.0 10/15/16 23:39 37.2 103 22 103/65 93 Nasal Cannula 2.0 10/15/16 22:57 37.5 94 20 106/64 94 10/15/16 22:52 37.5 103 28 106/62 94 Nasal Cannula 2.0 10/15/16 21:52 101 26 94 10/15/16 20:52 111 27 94 10/15/16 20:51 94 Nasal Cannula 2.0 10/15/16 20:51 38.2 10/15/16 20:46 105 20 106/64 91 Room Air 10/15/16 20:46 106/64 10/15/16 20:23 108 16 95 Room Air 10/15/16 20:00 106 20 104/65 91 10/15/16 19:52 119 30 90 10/15/16 19:34 111 10/15/16 19:27 91 Room Air 10/15/16 19:21 103/65 10/15/16 18:57 91 Room Air 10/15/16 18:53 38.1 99 18 108/71 91 Room Air The patient is awake, well-developed and adequately nourished, alert and oriented 3, normocephalic and atraumatic, lying in bed and in no acute distress. HEENT--PERRL, EOMI, mucous membranes and oropharynx dry. Neck--supple, no JVD or bruits, thyroid normal, trachea midline, no adenopathy. Heart--normal S1 and S2, no extra beats, no murmurs, rubs or gallops. Lungs--diffuse wheezes and rhonchi bilaterally left worse than right, no respiratory distress, no accessory muscle use. Abdomen--normal bowel sounds and soft, nontender and nondistended, no hernias or masses, no organomegaly. Extremities--no cyanosis, clubbing or edema. There are good distal pulses b/l. Dermatologic--normal skin turgor, normal color, warm and dry, no abnormal lymph nodes, no rash. Neurologic--cranial nerves II through XII grossly intact, motor and sensory examination normal. Rheumatologic--normal range of motion, nontender, muscles and joints. Psychiatric--normal affect. Diagnostics Laboratory Results Results Past 24 Hours Test 10/15/16 19:45 10/15/16 19:53 10/15/16 19:58 Range/Units White Blood Count 2.56 4.8-10.8 K/uL Red Blood Count 5.05 4.7-6.1 M/uL Hemoglobin 15.5 14.0-18.0 g/dL Hematocrit 44.8 42-52 % Mean Corpuscular Volume 88.7 80-100 fL Mean Corpuscular Hemoglobin 30.7 25-34 pg Mean Corpuscular Hemoglobin Concent 34.6 32-36 g/dl Platelet Count 91 130-400 K/uL Mean Platelet Volume 10.4 7.4-10.4 fL Neutrophils (%) (Auto) 79.3 % Lymphocytes (%) (Auto) 14.8 % Monocytes (%) (Auto) 4.7 % Eosinophils (%) (Auto) 0.0 % Basophils (%) (Auto) 0.4 % Neutrophils # (Auto) 2.03 1.4-6.5 K/uL Lymphocytes # (Auto) 0.38 1.2-3.4 K/uL Monocytes # (Auto) 0.12 0.11-0.59 K/uL Eosinophils # (Auto) 0.00 0-0.5 K/uL Basophils # (Auto) 0.01 0-0.2 K/uL RDW Standard Deviation 51.2 36.4-46.3 fL RDW Coefficient of Variation 15.8 11.5-14.5 % Immature Granulocyte % (Auto) 0.8 % Immature Granulocyte # (Auto) 0.02 0.00-0.02 K/uL Platelet Estimate DECREASED Prothrombin Time 49.3 9.0-12.0 SECONDS Prothromb Time International Ratio 4.3 0.9-1.1 Activated Partial Thromboplast Time 59.5 21.0-31.0 SECONDS Partial Thromboplastin Ratio 2.3 Sodium Level 135 136-145 mmol/L Potassium Level 3.7 3.5-5.1 mmol/L Chloride Level 103 98-107 mmol/L Carbon Dioxide Level 20 21-32 mmol/L Anion Gap 12.0 3-11 mmol/L Blood Urea Nitrogen 13 7-18 mg/dl Creatinine 0.64 0.60-1.40 mg/dl Est Creatinine Clear Calc Drug Dose 140.4 ml/min Estimated GFR () 140.0 Estimated GFR (Non- 120.8 BUN/Creatinine Ratio 20.8 10-20 Random Glucose 131 70-99 mg/dl Calcium Level 8.2 8.5-10.1 mg/dl Total Bilirubin 0.6 0.2-1 mg/dl Aspartate Amino Transf (AST/SGOT) 29 15-37 U/L Alanine Aminotransferase (ALT/SGPT) 28 12-78 U/L Alkaline Phosphatase 57 45-117 U/L Total Protein 6.9 6.4-8.2 gm/dl Albumin 3.1 3.4-5.0 gm/dl Globulin 3.8 2.5-4.0 gm/dl Albumin/Globulin Ratio 0.8 0.9-2 Bedside Lactic Acid Venous 1.16 0.90-1.70 mmol/L Bedside Troponin I 0.000 0-0.045 ng/ml Microbiology Results 10/15/16 Blood Culture, Received Pending 10/15/16 Blood Culture, Received Pending Diagnostic Radiology Patient Name: ANGEL DANIELS Unit Number: [id number] Dictated: 10/15/162042 Transcribed: 10/15/162042 [facility] Printed Date/Time: [~ rep prt dt]/[~ rep prt tm] [~ rep ct labl] - [~ rep ct ivnm] [facility] [place] [address] Dictated: 10/15/162042 Transcribed: 10/15/162042 [facility] Printed Date/Time: [~ rep prt dt]/[~ rep prt tm] [~ rep ct labl] - [~ rep ct ivnm] CHEST ONE VIEW PORTABLE HISTORY: Sepsis COMPARISON: Chest 07/30/2016. FINDINGS: No pneumothorax. No pleural effusions. The heart remains mildly enlarged. Left lower lobe airspace opacity. Right basilar interstitial thickening persists. There are slight increased density within the right medial lung base. IMPRESSION: Bilateral lower lobe airspace opacities, left greater than right. This likely represents a pneumonia. Recommend follow up to resolution. Electronically signed by: Lobo Wilkins M.D. 10/15/2016 8:44 PM Dictated Date/Time: 10/15/2016 8:43 PM The status of this report is Signed. Draft = Not yet reviewed or approved by Radiologist. Signed = Reviewed and approved by Radiologist. <AttendingPhy></AttendingPhy> <FamilyPhy>Santiago Roger PA-C</FamilyPhy> < PrimaryPhy>Barrington Adorno M.D.</PrimaryPhy> <UnitNumber>[id number]</ UnitNumber> <VisitNumber>[id number]</VisitNumber> <PatientName>ANGEL DANIELS</PatientName> <DateOfBirth>1975</DateOfBirth> <Location>[facility]</ Location> <ServiceDate>10/15/16</ServiceDate> <MNE>ESINDI</MNE> <OrderingPhy> Arnaud Bourgeois MD</OrderingPhy> <OrderingPhyMNE>f rep ord dr mclain</OrderingPhyMNE > <DictatingPhyMNE>f rep dict dr mclain</DictatingPhyMNE> <CCListMNE>f rep ct mne</ CCListMNE> <AdmittingPhyMNE>f pt admit dr mclain</AdmittingPhyMNE> <AttendingPhyMNE >f pt attend dr mclain</AttendingPhyMNE> <ConsultingPhyMNE>f pt consult dr mclain</ConsultingPhyMNE> <FamilyPhyMNE>f pt fam dr mclain</FamilyPhyMNE> <OtherPhyMNE>f pt other dr mclain</OtherPhyMNE> < PrimaryPhyMNE>f pt prim care dr mclain</PrimaryPhyMNE> <ReferringPhyMNE>f pt referring dr mclain</ReferringPhyMNE> EKG EKG shows sinus tachycardia 113 bpm, right bundle branch block, ST depression and T-wave inversions in leads V2 and especially in V3. Impression Assessment and Plan Pneumonia of both lower lobes left greater than right/hypoxia--the patient will be admitted and placed on vancomycin IV per renal dosing, Zosyn 3.375 mg IV every 8 hours, azithromycin 5 mg IV daily, Solu-Medrol 60 mg IV every 6 hours, guaifenesin extended release 600 mg by mouth twice a day and Xopenex with Atrovent nebulizer to use every 6 hours while awake and every 2 hours when necessary. We will hold Spiriva, Xolair a, Xopenex HFA, doxycycline, Pulmicort Flexhaler, oral Zithromax and oral steroids. Abnormal EKG/sinus tachycardia--patient will be admitted to the telemetry unit, for serial cardiac enzymes, cardiac rhythm monitoring and a 2-D echocardiogram with Dopplers. Previous EKG with more normal heart rate was also normal suggesting possible supply demand mismatch. Will hold diltiazem 60 mg by mouth daily. Start aspirin 81 mg by mouth daily chewable. Hypothyroidism--continue levothyroxine sodium at 25 g by mouth daily. Allergy continue montelukast sodium 10 mg by mouth daily and loratadine 10 mg by mouth daily. GERD--change omeprazole 40 mg by mouth daily to pantoprazole 40 mg by mouth daily. Long-term anticoagulation with warfarin patient is typically on 10 mg by mouth daily except Tuesday and when he is on 15 mg. Present INR is 4.3, we' ll hold dosing today and recheck INR tomorrow. Level of Care Telemetry Advanced Directives Existing Advance Directive: No Existing Living Will: No Existing Power of Lithoplate Maker: No Resuscitation Status FULL RESUSCITATION VTE Prophylaxis VTE Risk Assessment Done? Y/N: Yes Risk Level: Moderate Given or contraindicated: Warfarin (Coumadin)
[2016-10-16] MEDS ORDERED: DICLOFENAC SOD 1% GEL 100 GM TUBE EXT PRN (01:15)
[2016-10-16] MEDS ORDERED: ASPIRIN 81 MG CHEW ONE (01:34)
[2016-10-16] MEDS ORDERED: ASPIRIN 81 MG CHEW PO STA (01:35)
[2016-10-16] MEDS: MONTELUKAST SOD 10 MG TAB PO SCH ×2 (01:39→20:06)
[2016-10-16] MEDS: IPRATROPIUM BROMIDE NEB SOLN 0.02% 2.5 ML VIAL INH SCH ×4 (02:08→20:04)
[2016-10-16] MEDS: LEVALBUTEROL 1.25MG/0.5ML NEB INH SCH ×4 (02:08→20:04)
[2016-10-16] MEDS ORDERED: LEVALBUTEROL/IPRATROPIUM NEB INH SCH (03:00)
[2016-10-16] MEDS: PIPERACILL/TAZOBAC IV 3.375 GM in DEXTROSE 5% 100ML 100 ML IV SCH ×3 (04:20→19:58)
[2016-10-16] MEDS: LEVOTHYROXINE 25 MCG TAB PO SCH (06:15)
[2016-10-16 08:08] LABS: CREATININE 0.65 mg/dl (0.60-1.40)
[2016-10-16] MEDS: LORATADINE 10 MG TAB PO SCH (08:40)
[2016-10-16] MEDS: CALCIUM 600MG + VIT D 400 IU TAB PO SCH ×2 (08:40→20:07)
[2016-10-16] MEDS: CEROVITE ADV FORMULA TAB PO SCH (08:40)
[2016-10-16] MEDS: OMEGA-3 (PURIFIED FISH OIL) 1 GM CAP PO SCH (08:40)
[2016-10-16] MEDS: ASPIRIN 81 MG ECTAB PO SCH (08:40)
[2016-10-16] MEDS: ASCORBIC ACID 500 MG TAB PO SCH ×2 (08:41→20:07)
[2016-10-16] MEDS: PANTOprazole SOD 40 MG TAB PO SCH (08:41)
[2016-10-16] MEDS: GUAIFENESIN 600 MG TABCR PO SCH ×2 (08:41→20:06)
[2016-10-16] MEDS: CHOLECALCIFEROL 1000 INTER.UNIT TAB PO SCH (08:41)
[2016-10-16] MEDS: AZITHROMYCIN IV 500 MG in DEXTROSE 5% 250ML 250 ML IV SCH (08:45)
--- NOTE | 2016-10-16 10:21 | PULMONARY CONSULTATION ---
DATE OF CONSULTATION: 10/16/2016 DATE OF CONSULTATION: 10/16/2016. TIME: 9:25 a.m. REPORT OF CONSULTATION: The patient was seen in room 288, bed 2. He is a 41-year-old male who has a history of pulmonary problems including asthma, scoliosis, pectus excavatum, sleep apnea, and relatively recent pulmonary embolic disease. Five days ago he began to feel ill. He was having some fevers. He had some neck pain. He went to the Emergency Room 5 days ago. They thought he might have had an ear infection. He persisted with fevers. He saw Santiago Roger PA-C 3 days ago. He thought he had a virus. Yesterday they called Santiago Roger that he was still having fevers. He started him on doxycycline and prednisone. His called me on the phone approximately 5:15 p.m. yesterday stating that her 's oxygen saturation had dropped down to about 86%. He was still spiking fevers. I advised that he go to the Emergency Room. In the Emergency Room, the patient was evaluated with a chest x-ray. This shows a prominent left lower lung field infiltrate with a small right lower lung field infiltrate. He is feeling somewhat better today. The patient has a cough. He is not able to expectorate sputum, but he states that is the way it usually is for him. He does have a prior history of aspiration pneumonia. That occurred I believe in July of 2016. It occurred after a hemorrhoidectomy, which was done at [facility]. He was given some Percocet, which caused severe vomiting. He vomited between 10 and 12 times. He then presented with an aspiration at that time. He does not believe that he has any swallowing dysfunction otherwise. PAST SURGICAL HISTORY: 1. Hemorrhoidectomy. 2. Right and left cataract surgery. 3. Right tympanoplasty. PAST MEDICAL HISTORY: 1. Asthma. 2. Scoliosis. 3. Pectus excavatum. 4. Osteoporosis. 5. Hypothyroidism. 6. Reflux. 7. Hypertension. 8. Hyperlipidemia. 9. Prior typhoid. 10. Prior malaria. 11. Prior schistosomiasis. 12. Anxiety. 13. Obstructive sleep apnea diagnosed in 2012, but not treated. SOCIAL HISTORY: Tobacco never. ETOH -- none. ALLERGIES: 1. LISTED ALLERGY TO CIPRO -- REPORTEDLY HAD SEVERE MUSCLE PAINS. 2. GLUTEN. 3. OXYCODONE, WHICH CAUSED GI UPSET. 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 He is hoping to start a new mission in [place]. FAMILY HISTORY: Father has degenerative joint disease of the spine and mother is alive and well. REVIEW OF SYSTEMS: The patient's appetite has been decreased. It is improved this morning. He has had chills along with the fevers. He feels weaker than normal. He denies any bowel problems at present. The remainder of the review of systems is otherwise negative except as noted above. MEDICATIONS: At home: 1. Ascorbic acid 500 mg b.i.d. 2. Pulmicort Flexhaler 180 mcg 2 puffs b.i.d. 3. Calcium D b.i.d. 4. Vitamin D3 2000 units daily. 5. Diltiazem 60 mg daily. 6. Doxycycline just started yesterday. 7. Fish oil daily. 8. Levalbuterol inhaler 2 puffs b.i.d. 9. Levothyroxine 25 mcg daily. 10. Loratadine 10 mg daily. 11. Dulera 200/5 two puffs b.i.d. 12. Montelukast 10 mg daily. 13. Multivitamin daily. 14. Omeprazole 40 mg daily. 15. Tiotropium 1 daily. 16. Coumadin 10 mg daily except 15 mg Mondays and . PHYSICAL EXAMINATION: GENERAL: The patient is a pleasant 41-year-old male who looks older than his chronologic age. He was cooperative, alert and oriented. He did not appear in distress. VITAL SIGNS: Maximum temperature last evening was 38.2. Today his temperature is 36.5. HEAD, EYES, EARS, NOSE, AND THROAT: Pupils were reactive. Nares were clear. Mouth exam showed an enlarged uvula. No erythema or exudate was present. NECK: Palpation of the neck reveals no lymph nodes or masses. CHEST: Inspection of the chest reveals a severe pectus excavatum as well as moderate scoliosis. HEART: Rate was 95 per minute. The rhythm was regular. Blood pressure 110/71. LUNGS: Lung woo revealed prominent rales in the left chest posteriorly in the lower one-half. Mild rales were heard at the right base. No wheezing was heard. Saturation was 91% on room air. Respiratory rate was 20 breaths per minute. ABDOMEN: Soft. Bowel sounds were present. There was no tenderness to palpation, masses or organomegaly. EXTREMITIES: Showed no cyanosis, clubbing or edema. There are a lot of varicose veins in the lower extremities. His lower legs felt a bit cool. LABORATORY DATA: The patient's white count today is 2.56. Review of prior white counts from 07/17/2016 showed it to be 10.3. Thus, the leukopenia would be new. The differential count shows 79.3 neutrophils, 14.8 lymphs, 4.7 monos. Hemoglobin is 15.5. Platelets are 91,000. He does give a history of having low platelet counts in the past. INR was 4.3 and PTT was 59.5. Electrolytes show sodium 135, potassium 3.7, chloride 103, bicarb 20. BUN is 13 with a creatinine of 0.64. Liver functions were normal. Troponin was negative. Albumin was decreased to 3.1. Total protein was 6.9. Blood cultures are pending. The patient had an EKG done. This shows a normal sinus rhythm with a rate of 89. There is an RSR prime in V1 and V2. IMPRESSIONS: 1. Bilateral pneumonia, left greater than right. 2. Asthma by history. 3. Leukopenia. 4. Thrombocytopenia. 5. Recent history of pulmonary embolism. 6. Obstructive sleep apnea - untreated. COMMENTS AND RECOMMENDATIONS: The patient is clinically better today. Temperatures are down. He is started on Zosyn, azithromycin, and vancomycin. I am assuming the vancomycin was added simply because of his low white counts. The patient is on levalbuterol and ipratropium neb treatments. He is on methylprednisolone 60 mg IV q. 6. The patient is not all that wheezy and tight. In light of the apparent infection I would prefer to have a significantly lower dose of the steroids. Will decrease that to 20 mg IV q. 8 hours. The patient should be encouraged to take in lots of liquids with the hope of liquefying his secretions. Will order a flutter valve. I will order some Mucinex in hopes of loosening his secretions. Thank you for asking me to assist in his care.
[2016-10-16] MEDS: VANCOMYCIN INJ 1,300 MG in SODIUM CHLORIDE 0.9% 250ML 250 ML IV SCH ×2 (12:35→19:58)
--- NOTE | 2016-10-16 13:37 | Progress Note ---
Subjective Date of Service: Oct 16, 2016. Subjective Pt evaluation today including: conversation w/ patient, conversation w/ family , physical exam, lab review, conversation w/ food consultant, review of inpatient medication list Pain: no pain PO Intake: improved greatly Voiding: no voiding problems breathing is better compared to admission, coughing less, no fever, no distress appetite already improved, ate all of his breakfast which is the best he has felt in days updated at the bedside, all questions answered Problem List Medical Problems: (1) Bilateral pneumonia Status: Acute (2) Bilateral pneumonia Status: Acute (3) Dizziness Status: Acute (4) Failure of outpatient treatment Status: Acute (5) Leukopenia Status: Acute (6) Right otitis media Status: Acute (7) Supratherapeutic INR Status: Acute (8) Thrombocytopenia Status: Acute (9) Vomiting Status: Acute Review of Systems Constitutional: + fatigue, + weakness Respiratory: + cough, + dyspnea on exertion, + sputum All Other Systems: Reviewed and Negative Medications Current Inpatient Medications Medications (Trade) Dose Ordered Sig/Dena Route Start Time Stop Time Status Last Admin Dose Admin Acetaminophen (Tylenol Tab) 650 mg Q4H PRN PO 10/15/16 21:45 11/14/16 21:44 Zolpidem Tartrate (Ambien Tab) 5 mg HSZ PRN PO 10/15/16 21:45 11/14/16 21:44 Ascorbic Acid (Vitamin C Tab) 500 mg BID PO 10/16/16 09:00 11/15/16 08:59 10/16/16 08:41 500 MG Calcium/Vitamin D (Caltrate Plus Tab) 1 tab BID PO 10/16/16 09:00 11/15/16 08:59 10/16/16 08:40 1 TAB Fish Oil (Flatgap-3 (Purified Fish Oil) Cap) 1 gm DAILY PO 10/16/16 09:00 11/15/16 08:59 10/16/16 08:40 1 GM Levothyroxine Sodium (Synthroid Tab) 25 mcg DAILYBB PO 10/16/16 06:30 11/15/16 06:59 10/16/16 06:15 25 MCG Loratadine (Claritin Tab) 10 mg DAILY PO 10/16/16 09:00 11/15/16 08:59 10/16/16 08:40 10 MG Montelukast Sodium (Singulair Tab) 10 mg QPM PO 10/16/16 21:00 11/15/16 20:59 10/16/16 01:39 10 MG Multivitamins/ Minerals (Multivitamin W/ Minerals Tab) 1 tab DAILY PO 10/16/16 09:00 11/15/16 08:59 10/16/16 08:40 1 TAB Cholecalciferol (Vitamin D Tab) 2,000 inter.unit QAM PO 10/16/16 09:00 11/15/16 08:59 10/16/16 08:41 2,000 INTER.UNIT Pantoprazole Sodium 40 mg 40 mg QAM PO 10/16/16 09:00 11/15/16 08:59 10/16/16 08:41 40 MG Piperacillin Sod/ Tazobactam Sod/ Dextrose (Zosyn Iv/D5 100ml) 115 ml @ 28.75 mls/ hr Q8H IV 10/16/16 04:00 10/23/16 03:59 10/16/16 12:35 28.75 MLS/HR Ondansetron HCl (Zofran Inj) 4 mg Q6H PRN IV 10/15/16 22:00 11/14/16 21:59 Guaifenesin 600 mg 600 mg BID PO 10/16/16 09:00 11/15/16 08:59 10/16/16 08:41 600 MG Azithromycin/ Dextrose (Zithromax IV/D5 250ml) 255 ml @ 125 mls/hr DAILY IV 10/16/16 09:00 10/23/16 08:59 10/16/16 08:45 125 MLS/HR Ipratropium [place] (Atrovent 0.02% 0.5MG/2.5ML Neb) 0.5 mg Q6R INH 10/16/16 03:00 11/15/16 02:59 10/16/16 07:46 0.5 MG Levalbuterol (Xopenex 1.25MG/ 0.5ML Neb) 1.25 mg Q6R INH 10/16/16 03:00 11/15/16 02:59 10/16/16 07:46 1.25 MG Ipratropium [place] (Atrovent 0.02% 0.5MG/2.5ML Neb) 0.5 mg Q2H PRN INH 10/15/16 22:15 11/14/16 22:14 Levalbuterol (Xopenex 1.25MG/ 0.5ML Neb) 1.25 mg Q2H PRN INH 10/15/16 22:15 11/14/16 22:14 Piperacillin Sod/ Tazobactam Sod (Consult) 1 ea UD PRN N/A 10/15/16 23:45 11/14/16 23:44 Vancomycin HCl 1 ea 1 ea UD PRN N/A 10/15/16 23:45 11/14/16 23:44 Vancomycin HCl/ Sodium Chloride (Vancomycin Inj/ Nss 250ml) 276 ml @ 125 mls/hr Q10H IV 10/16/16 10:00 10/23/16 09:59 10/16/16 12:35 125 MLS/HR Aspirin (Ecotrin Tab) 81 mg QAM PO 10/16/16 09:00 11/15/16 08:59 10/16/16 08:40 81 MG Diclofenac Sodium 1 appln 1 appln DAILY PRN EXT 10/16/16 01:15 11/15/16 01:14 Methylprednisolone Sodium Succinate/ Syringe (Solu-Medrol IV/ Syringe) 0.32 ml @ 1.5 mls/min Q8H IV 10/16/16 14:00 11/15/16 13:59 Objective Vital Signs Date Time Temp Pulse Resp B/P Pulse Ox O2 Delivery O2 Flow Rate FiO2 10/16/16 11:45 36.6 108 18 121/69 91 10/16/16 08:55 91 Room Air 10/16/16 07:46 95 16 94 Nasal Cannula 2.0 10/16/16 07:38 36.5 89 18 110/71 94 2.0 10/16/16 04:08 36.6 95 20 112/76 94 2.0 10/16/16 04:00 Nasal Cannula 2.0 10/16/16 02:08 97 16 96 Nasal Cannula 3.0 10/15/16 23:54 93 Nasal Cannula 2.0 10/15/16 23:39 37.2 103 22 103/65 93 Nasal Cannula 2.0 10/15/16 22:57 37.5 94 20 106/64 94 10/15/16 22:52 37.5 103 28 106/62 94 Nasal Cannula 2.0 10/15/16 21:52 101 26 94 10/15/16 20:52 111 27 94 10/15/16 20:51 94 Nasal Cannula 2.0 10/15/16 20:51 38.2 10/15/16 20:46 105 20 106/64 91 Room Air 10/15/16 20:46 106/64 10/15/16 20:23 108 16 95 Room Air 10/15/16 20:00 106 20 104/65 91 10/15/16 19:52 119 30 90 10/15/16 19:34 111 10/15/16 19:27 91 Room Air 10/15/16 19:21 103/65 10/15/16 18:57 91 Room Air 10/15/16 18:53 38.1 99 18 108/71 91 Room Air Physical Exam General Appearance: no apparent distress, + thin Eyes: normal inspection, EOMI, sclerae normal Neck: supple, no adenopathy, no JVD, trachea midline Respiratory/Chest: chest non-tender, no respiratory distress, no accessory muscle use, + decreased breath sounds, + pertinent finding (pectus excavatum) Cardiovascular: regular rate, rhythm, no edema, no gallop, no JVD, no murmur Abdomen: normal bowel sounds, non tender, soft, no organomegaly Extremities: normal range of motion, non-tender, normal inspection, no pedal edema, no calf tenderness Neurologic/Psychiatric: 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, no motor/sensory deficits, alert, normal mood/affect, oriented x 3 Skin: normal color, warm/dry, no rash Laboratory Results Last 24 Hours Test 10/15/16 19:45 10/15/16 19:53 10/15/16 19:58 10/16/16 06:47 White Blood Count 2.56 K/uL Red Blood Count 5.05 M/uL Hemoglobin 15.5 g/dL Hematocrit 44.8 % Mean Corpuscular Volume 88.7 fL Mean Corpuscular Hemoglobin 30.7 pg Mean Corpuscular Hemoglobin Concent 34.6 g/dl Platelet Count 91 K/uL Mean Platelet Volume 10.4 fL Neutrophils (%) (Auto) 79.3 % Lymphocytes (%) (Auto) 14.8 % Monocytes (%) (Auto) 4.7 % Eosinophils (%) (Auto) 0.0 % Basophils (%) (Auto) 0.4 % Neutrophils # (Auto) 2.03 K/uL Lymphocytes # (Auto) 0.38 K/uL Monocytes # (Auto) 0.12 K/uL Eosinophils # (Auto) 0.00 K/uL Basophils # (Auto) 0.01 K/uL RDW Standard Deviation 51.2 fL RDW Coefficient of Variation 15.8 % Immature Granulocyte % (Auto) 0.8 % Immature Granulocyte # (Auto) 0.02 K/uL Platelet Estimate DECREASED Prothrombin Time 49.3 SECONDS Prothromb Time International Ratio 4.3 Activated Partial Thromboplast Time 59.5 SECONDS Partial Thromboplastin Ratio 2.3 Sodium Level 135 mmol/L Potassium Level 3.7 mmol/L Chloride Level 103 mmol/L Carbon Dioxide Level 20 mmol/L Anion Gap 12.0 mmol/L Blood Urea Nitrogen 13 mg/dl Creatinine 0.64 mg/dl 0.65 mg/dl Est Creatinine Clear Calc Drug Dose 140.4 ml/min 138.2 ml/min Estimated GFR () 140.0 139.1 Estimated GFR (Non- 120.8 120.0 BUN/Creatinine Ratio 20.8 Random Glucose 131 mg/dl Calcium Level 8.2 mg/dl Total Bilirubin 0.6 mg/dl Aspartate Amino Transf (AST/SGOT) 29 U/L Alanine Aminotransferase (ALT/SGPT) 28 U/L Alkaline Phosphatase 57 U/L Total Protein 6.9 gm/dl Albumin 3.1 gm/dl Globulin 3.8 gm/dl Albumin/Globulin Ratio 0.8 Bedside Lactic Acid Venous 1.16 mmol/L Bedside Troponin I 0.000 ng/ml Assessment and Plan 41 yo male with history of scoliosis, pectus excavatum, h/o PE, h/o schistocytosis and malaria infection, presented to the ED with worsening cough, fevers, poor appetite for several days and diagnosed with bibasilar infiltrates on CXR, admitted to telemetry and started on broad spectrum antibiotics - Bibasilar pneumonia: continue Zosyn and Zithromax, will check a nasal MRSA swab to determine if Vanco needs to continue no wheezing on exam, breathing well, taper back steroids to 20mg q8 and likely d/c tomorrow Mucinex, nebulizers, flutter valve appreciate pulmonary consultation - Acute respiratory failure with hypoxia: try to wean off oxygen with treatment of pneumonia flutter valve, ISB, ambulate - Sinus tachycardia: due to infection, however, Diltiazem held on admission, will resume today, BP adequate continue IV fluids repeat EKG with no changes to suggest ischemia, troponin negative, no chest pain hold on echocardiogram, had echo three months ago that was normal Hypothyroidism--continue levothyroxine sodium at 25 g by mouth daily. Allergy continue montelukast sodium 10 mg by mouth daily and loratadine 10 mg by mouth daily. GERD--change omeprazole 40 mg by mouth daily to pantoprazole 40 mg by mouth daily. Long-term anticoagulation with warfarin patient is typically on 10 mg by mouth daily except Tuesday and when he is on 15 mg INR was elevated at 4.3 on admission, repeat tomorrow, Coumadin held since admission Plan: keep on tele today, likely transfer off tomorrow
[2016-10-16] MEDS ORDERED: DILTIAZEM HCL 30 MG TAB PO ONE (13:45)
[2016-10-16] MEDS: METHYLPREDNISOLONE IV 20 MG in SYRINGE 0 ML IV SCH ×2 (14:48→22:07)
[2016-10-16] MEDS ORDERED: GUAIFENESIN 600 MG TABCR PO SCH (21:00)
[2016-10-17] VITALS (10 sets, daily range): BP systolic 90–108; BP diastolic 56–70; PULSE 85–93; TEMP 36.3–36.7; O2SAT 90–96
[2016-10-17] MEDS: IPRATROPIUM BROMIDE NEB SOLN 0.02% 2.5 ML VIAL INH SCH ×2 (01:47→07:41)
[2016-10-17] MEDS: LEVALBUTEROL 1.25MG/0.5ML NEB INH SCH ×2 (01:47→07:41)
[2016-10-17] MEDS: PIPERACILL/TAZOBAC IV 3.375 GM in DEXTROSE 5% 100ML 100 ML IV SCH ×3 (05:01→21:00)
[2016-10-17] MEDS ORDERED: VANCOMYCIN TROUGH SCH (05:30)
[2016-10-17 05:56] LABS: MEAN CELL VOLUME 89.1 fL (80-100); MEAN CORPUSCULAR HEMOGLOBIN 30.4 pg (25-34); MEAN CORPUSCULAR HGB CONC 34.1 g/dl (32-36); MEAN PLATELET VOLUME 9.9 fL (7.4-10.4); PLATELET COUNT 113 K/uL (130-400); WHITE BLOOD COUNT 4.63 K/uL (4.8-10.8)
[2016-10-17 06:18] LABS: BASO % 0.2 %; BASO ABS # 0.01 K/uL (0-0.2); COMPLETE YES; ECHINOCYTES 1+; GIANT PLATELETS 1+; IG% 0.2 %; LYMPH % 10.2 %; LYMPH ABS # 0.47 K/uL (1.2-3.4); MONO % 6.9 %; NEUT % 82.5 %; OVALOCYTES 1+
[2016-10-17] MEDS: LEVOTHYROXINE 25 MCG TAB PO SCH (06:18)
[2016-10-17] MEDS: VANCOMYCIN INJ 1,300 MG in SODIUM CHLORIDE 0.9% 250ML 250 ML IV SCH (06:18)
[2016-10-17] MEDS: METHYLPREDNISOLONE IV 20 MG in SYRINGE 0 ML IV SCH (06:19)
[2016-10-17 06:29] LABS: BUN/CREATININE RATIO 19.3 (10-20); CALCIUM 8.2 mg/dl (8.5-10.1); CREATININE 0.88 mg/dl (0.60-1.40); MAGNESIUM 1.9 mg/dl (1.8-2.4); POTASSIUM 3.8 mmol/L (3.5-5.1)
[2016-10-17 06:48] LABS: INR 4.6 (0.9-1.1); PROTHROMBIN TIME (PATIENT) 52.2 SECONDS (9.0-12.0)
--- NOTE | 2016-10-17 08:17 | PULMONARY PROGRESS NOTE ---
DATE: 10/17/2016 TIME: 07:25 a.m. SUBJECTIVE: The patient states he did not sleep well. This is not unusual for him; however, he often has difficulty when he is in the hospital. Overall, he feels about the same. He states he had to wear the oxygen for a few hours last night, but then it was taken off. He thinks his saturations went down to about 89%. He does not feel like he has had much fever. His cough is mild. He is not able to expectorate any phlegm. He has no chest pain. OBJECTIVE: GENERAL: The patient looked comfortable. He gave the appearance of being a little depressed. He was cooperative and alert. He was awake before I enter the room. VITAL SIGNS: Temperature is 36.7. He has not had any significant fevers except for the first several hours after being admitted. HEENT: Eye exam showed implants. Pupils were reactive. Mouth exam showed some mucus in the posterior pharynx. The uvula is mildly enlarged. No lymph nodes were palpable. CHEST: Inspection of the chest reveals severe pectus excavatum and he has scoliosis. HEART: Current heart rate is 87 beats per minute. The rhythm is regular. Monitoring shows normal sinus rhythm. Blood pressure 96/57. LUNGS: Auscultation of the lung woo reveals prominent coarse rales throughout much of the left lung and to a lesser degree in the right lower lung half. The left side sounds about the same as yesterday, but the right side has more prominent rales than yesterday. He does not look worse, however. Current oxygen saturation on room air is 92% done by myself. ABDOMEN: Soft and nontender. Normal bowel sounds were heard. EXTREMITIES: Showed no cyanosis, clubbing or edema. He has prominent veins on the lower legs. LABORATORY DATA: White count today is 4.63, which reflects an improvement compared with 2 days ago when it was 2.56. Hemoglobin is 14. Platelets were 113,000 and this reflects improvement compared with 2 days ago when it was 91. INR today is still prolonged at 4.6. Electrolytes show sodium 140, potassium 3.8, chloride 106, and bicarbonate 22. BUN was 17 with a creatinine of 0.88. Calcium was 8.2 and magnesium 1.9. Blood cultures are still pending. Nasal swab for MRSA was negative. IMPRESSIONS: 1. Bilateral pneumonia, left greater than right. 2. Asthma. 3. Leukopenia -- improved. 4. Thrombocytopenia -- improved. 5. History of pulmonary emboli in the recent past. 6. Obstructive sleep apnea -- untreated. COMMENTS AND RECOMMENDATIONS: The patient looks about the same as yesterday. His physical findings are somewhat more prominent on exam. His oxygen saturation, however, is holding well and he has not had significant fevers. In light of not having much wheezing, I think it would be prudent to change the steroids to oral. This may help his immunity somewhat. Would continue with the antibiotics that were initiated on admission. Apparently, we will not be able to collect any sputum as he is not bringing anything up. Would continue with the nebulizer treatments. Dr. Weller will be seeing the patient as of tomorrow. He obviously will need a followup x-ray to see if there has been improvement.
[2016-10-17] MEDS: LORATADINE 10 MG TAB PO SCH (08:21)
[2016-10-17] MEDS: PANTOprazole SOD 40 MG TAB PO SCH (08:22)
[2016-10-17] MEDS: OMEGA-3 (PURIFIED FISH OIL) 1 GM CAP PO SCH (08:22)
[2016-10-17] MEDS: CHOLECALCIFEROL 1000 INTER.UNIT TAB PO SCH (08:22)
[2016-10-17] MEDS: GUAIFENESIN 600 MG TABCR PO SCH ×2 (08:22→21:02)
[2016-10-17] MEDS: CALCIUM 600MG + VIT D 400 IU TAB PO SCH ×2 (08:22→21:02)
[2016-10-17] MEDS: ASPIRIN 81 MG ECTAB PO SCH (08:23)
[2016-10-17] MEDS: ASCORBIC ACID 500 MG TAB PO SCH ×2 (08:23→21:01)
[2016-10-17] MEDS: CEROVITE ADV FORMULA TAB PO SCH (08:23)
[2016-10-17] MEDS: AZITHROMYCIN IV 500 MG in DEXTROSE 5% 250ML 250 ML IV SCH (08:51)
--- NOTE | 2016-10-17 10:27 | Pharmacy Progress Note ---
Pharmacy Antibiotic Prog Note Date of Service: Oct 17, 2016. Subjective: The patient is currently receiving vancomycin 1300 mg iv q 10 hrs, zosyn 3.375 gm iv q 8 hrs, and zithromax 500 mg iv q 24 hrs for PNA The patient is currently on day # 3 of IV therapy. Objective: Height (Feet): 6 Height (Inches): 2.00 Weight (Kilograms): 66.700 Levels: Item Value Date Time Vancomycin Level Trough 13.2 mcg/ml 10/17/16 0542 Lab Results (24hrs): Laboratory Tests Test 10/17/16 05:42 BUN/Creatinine Ratio 19.3 Blood Urea Nitrogen 17 mg/dl Creatinine 0.88 mg/dl White Blood Count 4.63 K/uL Red Blood Count 4.60 M/uL Hemoglobin 14.0 g/dL Hematocrit 41.0 % Mean Corpuscular Volume 89.1 fL Mean Corpuscular Hemoglobin 30.4 pg Mean Corpuscular Hemoglobin Concent 34.1 g/dl Platelet Count 113 K/uL Mean Platelet Volume 9.9 fL Neutrophils (%) (Auto) 82.5 % Lymphocytes (%) (Auto) 10.2 % Monocytes (%) (Auto) 6.9 % Eosinophils (%) (Auto) 0.0 % Basophils (%) (Auto) 0.2 % Neutrophils # (Auto) 3.82 K/uL Lymphocytes # (Auto) 0.47 K/uL Monocytes # (Auto) 0.32 K/uL Eosinophils # (Auto) 0.00 K/uL Basophils # (Auto) 0.01 K/uL Micro Results: Item Value Date Time MRSA DNA Surveillance Screen - Final Complete 10/16/16 1510 Nasal Specimen Negative for MRSA by DNA Probe Blood Culture - Preliminary Resulted 10/15/16 1950 Blood NO GROWTH TO DATE. Blood Culture - Preliminary Resulted 10/15/16 1945 Blood NO GROWTH TO DATE. Assessment & Plan: Patient receiving vancomycin, zosyn, and azithromycin for PNA. BC x 2 are no growth to date, nasal swab negative for MRSA. Pulmonary is consulted to follow patient. Vancomycin: * Trough level this am was subtherapeutic at ~13.2 mcg/ml, however drawn before steady state therefore actual level probably >15 mcg/ml (goal 15-20 mcg/ml) ; therefore will continue with current regimen * Scr slightly increased today from 0.65 mg/dL to 0.88 mg/dL (CrCl >100 ml/min) * Will plan to obtain another trough in next 2-3 days if vancomycin is to be continued Zosyn: * 3.375 gm iv q 8 hrs (appropriate for CrCl >20 ml/min) no changes necessary Pharmacy will continue to follow and will adjust dose/frequency as necessary. Thank you
--- NOTE | 2016-10-17 11:23 | Progress Note ---
Subjective Date of Service: Oct 17, 2016. Subjective Pt evaluation today including: conversation w/ patient, physical exam, lab review, conversation w/ bi consultant, review of inpatient medication list Pain: no pain PO Intake: adequate Voiding: no voiding problems patient feeling better but he is concerned because he was told by Dr. Kauffman that he still had crackles I told him that this is true, but overall he is improving, off of oxygen, coughing less, eating better, he felt better he wants to ambulate in halls, changed activity to ad cheryl his was concerned that he wasn't getting his Dulera, Pulmicort or Spiriva explained that he was getting systemic steroids, short acting beta agonists and anti-cholinergics plan to resume those inhalers today Problem List Medical Problems: (1) Bilateral pneumonia Status: Acute (2) Bilateral pneumonia Status: Acute (3) Dizziness Status: Acute (4) Failure of outpatient treatment Status: Acute (5) Leukopenia Status: Acute (6) Right otitis media Status: Acute (7) Supratherapeutic INR Status: Acute (8) Thrombocytopenia Status: Acute (9) Vomiting Status: Acute Review of Systems Constitutional: + fatigue, + weakness Respiratory: + cough, + dyspnea on exertion All Other Systems: Reviewed and Negative Medications Current Inpatient Medications Medications (Trade) Dose Ordered Sig/Dena Route Start Time Stop Time Status Last Admin Dose Admin Acetaminophen (Tylenol Tab) 650 mg Q4H PRN PO 10/15/16 21:45 11/14/16 21:44 Zolpidem Tartrate (Ambien Tab) 5 mg HSZ PRN PO 10/15/16 21:45 11/14/16 21:44 Ascorbic Acid (Vitamin C Tab) 500 mg BID PO 10/16/16 09:00 11/15/16 08:59 10/17/16 08:23 500 MG Calcium/Vitamin D (Caltrate Plus Tab) 1 tab BID PO 10/16/16 09:00 11/15/16 08:59 10/17/16 08:22 1 TAB Fish Oil ([place]-3 (Purified Fish Oil) Cap) 1 gm DAILY PO 10/16/16 09:00 11/15/16 08:59 10/17/16 08:22 1 GM Levothyroxine Sodium (Synthroid Tab) 25 mcg DAILYBB PO 10/16/16 06:30 11/15/16 06:59 10/17/16 06:18 25 MCG Loratadine (Claritin Tab) 10 mg DAILY PO 10/16/16 09:00 11/15/16 08:59 10/17/16 08:21 10 MG Montelukast Sodium (Singulair Tab) 10 mg QPM PO 10/16/16 21:00 11/15/16 20:59 10/16/16 20:06 10 MG Multivitamins/ Minerals (Multivitamin W/ Minerals Tab) 1 tab DAILY PO 10/16/16 09:00 11/15/16 08:59 10/17/16 08:23 1 TAB Cholecalciferol (Vitamin D Tab) 2,000 inter.unit QAM PO 10/16/16 09:00 11/15/16 08:59 10/17/16 08:22 2,000 INTER.UNIT Pantoprazole Sodium 40 mg 40 mg QAM PO 10/16/16 09:00 11/15/16 08:59 10/17/16 08:22 40 MG Piperacillin Sod/ Tazobactam Sod/ Dextrose (Zosyn Iv/D5 100ml) 115 ml @ 28.75 mls/ hr Q8H IV 10/16/16 04:00 10/23/16 03:59 10/17/16 05:01 28.75 MLS/HR Ondansetron HCl (Zofran Inj) 4 mg Q6H PRN IV 10/15/16 22:00 11/14/16 21:59 Guaifenesin 600 mg 600 mg BID PO 10/16/16 09:00 11/15/16 08:59 10/17/16 08:22 600 MG Azithromycin/ Dextrose (Zithromax IV/D5 250ml) 255 ml @ 125 mls/hr DAILY IV 10/16/16 09:00 10/23/16 08:59 10/17/16 08:51 125 MLS/HR Ipratropium [place] (Atrovent 0.02% 0.5MG/2.5ML Neb) 0.5 mg Q6R INH 10/16/16 03:00 11/15/16 02:59 10/17/16 07:41 0.5 MG Levalbuterol (Xopenex 1.25MG/ 0.5ML Neb) 1.25 mg Q6R INH 10/16/16 03:00 11/15/16 02:59 10/17/16 07:41 1.25 MG Ipratropium [place] (Atrovent 0.02% 0.5MG/2.5ML Neb) 0.5 mg Q2H PRN INH 10/15/16 22:15 11/14/16 22:14 Levalbuterol (Xopenex 1.25MG/ 0.5ML Neb) 1.25 mg Q2H PRN INH 10/15/16 22:15 11/14/16 22:14 Piperacillin Sod/ Tazobactam Sod (Consult) 1 ea UD PRN N/A 10/15/16 23:45 11/14/16 23:44 Aspirin (Ecotrin Tab) 81 mg QAM PO 10/16/16 09:00 11/15/16 08:59 10/17/16 08:23 81 MG Diclofenac Sodium (Voltaren 1% Top Gel) 1 appln DAILY PRN EXT 10/16/16 01:15 11/15/16 01:14 Prednisone (PredniSONE TAB) 20 mg BID PO 10/17/16 09:00 11/16/16 08:59 10/17/16 08:21 20 MG Objective Vital Signs Date Time Temp Pulse Resp B/P Pulse Ox O2 Delivery O2 Flow Rate FiO2 10/17/16 08:00 92 Nasal Cannula 2.0 10/17/16 07:42 92 16 96 Room Air 10/17/16 07:41 36.7 85 18 90/56 92 Room Air 10/17/16 05:31 36.7 88 20 96/57 90 Room Air 10/17/16 04:05 Room Air 10/17/16 01:47 85 16 93 Room Air 10/17/16 00:05 Room Air 10/16/16 23:05 36.7 98 18 106/68 90 Room Air 10/16/16 20:04 81 16 93 Nasal Cannula 1.0 10/16/16 20:00 93 Nasal Cannula 1.0 10/16/16 19:48 36.5 89 20 105/72 95 2.0 10/16/16 16:00 92 Nasal Cannula 2.0 10/16/16 15:48 36.9 104 18 102/71 91 Nasal Cannula 2.0 10/16/16 15:15 92 16 94 Nasal Cannula 2.0 10/16/16 12:00 91 Room Air 10/16/16 11:45 36.6 108 18 121/69 91 Physical Exam General Appearance: no apparent distress, + thin Eyes: normal inspection, EOMI, sclerae normal ENT: normal ENT inspection, hearing grossly normal, pharynx normal Neck: supple, no adenopathy, no JVD, trachea midline Respiratory/Chest: chest non-tender, normal breath sounds (no wheezing), no respiratory distress, no accessory muscle use, + crackles (bibasilar, more prominent on left side), + pertinent finding (pectus excavatum) Cardiovascular: regular rate, rhythm, no edema, no gallop, no JVD, no murmur Abdomen: normal bowel sounds, non tender, soft, no organomegaly Extremities: normal range of motion, non-tender, normal inspection, no pedal edema, no calf tenderness, pelvis stable Neurologic/Psychiatric: sample weaver 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, no motor/sensory deficits, alert, normal mood/affect, oriented x 3 Skin: normal color, warm/dry, no rash Laboratory Results Last 24 Hours Test 10/17/16 05:42 White Blood Count 4.63 K/uL Red Blood Count 4.60 M/uL Hemoglobin 14.0 g/dL Hematocrit 41.0 % Mean Corpuscular Volume 89.1 fL Mean Corpuscular Hemoglobin 30.4 pg Mean Corpuscular Hemoglobin Concent 34.1 g/dl Platelet Count 113 K/uL Mean Platelet Volume 9.9 fL Neutrophils (%) (Auto) 82.5 % Lymphocytes (%) (Auto) 10.2 % Monocytes (%) (Auto) 6.9 % Eosinophils (%) (Auto) 0.0 % Basophils (%) (Auto) 0.2 % Neutrophils # (Auto) 3.82 K/uL Lymphocytes # (Auto) 0.47 K/uL Monocytes # (Auto) 0.32 K/uL Eosinophils # (Auto) 0.00 K/uL Basophils # (Auto) 0.01 K/uL RDW Standard Deviation 49.5 fL RDW Coefficient of Variation 15.3 % Immature Granulocyte % (Auto) 0.2 % Immature Granulocyte # (Auto) 0.01 K/uL Giant Platelets 1+ Ovalocytes 1+ Echinocytes 1+ Prothrombin Time 52.2 SECONDS Prothromb Time International Ratio 4.6 Sodium Level 140 mmol/L Potassium Level 3.8 mmol/L Chloride Level 106 mmol/L Carbon Dioxide Level 22 mmol/L Anion Gap 12.0 mmol/L Blood Urea Nitrogen 17 mg/dl Creatinine 0.88 mg/dl Est Creatinine Clear Calc Drug Dose 102.1 ml/min Estimated GFR () 122.8 Estimated GFR (Non- 106.0 BUN/Creatinine Ratio 19.3 Random Glucose 154 mg/dl Calcium Level 8.2 mg/dl Magnesium Level 1.9 mg/dl Vancomycin Level Trough 13.2 mcg/ml Assessment and Plan 41 yo male with history of scoliosis, pectus excavatum, h/o PE, h/o schistocytosis and malaria infection, presented to the ED with worsening cough, fevers, poor appetite for several days and diagnosed with bibasilar infiltrates on CXR, admitted to telemetry and started on broad spectrum antibiotics - Bibasilar pneumonia: continue Zosyn and Zithromax, d/c Vanco since MRSA swab negative yesterday no wheezing on exam, breathing well, taper back steroids to Prednisone 20mg BID, probably d/c in 24-48 hours Mucinex, nebulizers, flutter valve appreciate pulmonary consultation ambulate in halls resume Pulmicort, Spiriva, Dulera - Acute respiratory failure with hypoxia: weaned off to room air flutter valve, ISB, ambulate - Sinus tachycardia: due to infection, holding Diltiazem since BP low / low normal stop IV fluid today, eating and drinking well repeat EKG with no changes to suggest ischemia, troponin negative, no chest pain hold on echocardiogram, had echo three months ago that was normal Hypothyroidism--continue levothyroxine sodium at 25 g by mouth daily. Allergy continue montelukast sodium 10 mg by mouth daily and loratadine 10 mg by mouth daily. GERD--change omeprazole 40 mg by mouth daily to pantoprazole 40 mg by mouth daily. Long-term anticoagulation with warfarin patient is typically on 10 mg by mouth daily except Tuesday and when he is on 15 mg INR was elevated at 4.3 on admission, repeat today is 4.6 despite holding Coumadin no signs of bleeding, would just continue to hold Coumadin and follow INR daily Plan: transfer off tele today, increase activity, look for discharge in 24-48 hours
[2016-10-17] MEDS: DORNASE ALFA (2500U) 2.5MG/2.5ML INH SCH (20:10)
[2016-10-17] MEDS: MOMETASONE FORMOTEROL INH SCH (21:00)
[2016-10-17] MEDS: BUDESONIDE 90 MCG INH INH SCH (21:00)
[2016-10-17] MEDS: MONTELUKAST SOD 10 MG TAB PO SCH (21:02)
[2016-10-18] VITALS (8 sets, daily range): BP systolic 106–122; BP diastolic 52–70; PULSE 50–98; TEMP 36.5–37; O2SAT 90–96
[2016-10-18] MEDS: PIPERACILL/TAZOBAC IV 3.375 GM in DEXTROSE 5% 100ML 100 ML IV SCH ×2 (04:11→11:52)
[2016-10-18] MEDS: LEVOTHYROXINE 25 MCG TAB PO SCH (05:49)
[2016-10-18 06:41] LABS: BASO % 0.2 %; BASO ABS # 0.01 K/uL (0-0.2); COMPLETE YES; HEMATOCRIT 41.3 % (42-52); IG% 0.7 %; LYMPH % 12.2 %; LYMPH ABS # 0.66 K/uL (1.2-3.4); MEAN CELL VOLUME 90.4 fL (80-100); MEAN CORPUSCULAR HEMOGLOBIN 30.4 pg (25-34); MEAN CORPUSCULAR HGB CONC 33.7 g/dl (32-36); MEAN PLATELET VOLUME 10.9 fL (7.4-10.4); NEUT % 77.9 %; PLATELET COUNT 142 K/uL (130-400); RED BLOOD COUNT 4.57 M/uL (4.7-6.1); WHITE BLOOD COUNT 5.43 K/uL (4.8-10.8)
[2016-10-18 06:45] LABS: INR 3.1 (0.9-1.1); PROTHROMBIN TIME (PATIENT) 35.2 SECONDS (9.0-12.0)
[2016-10-18 07:18] LABS: BUN/CREATININE RATIO 24.5 (10-20); CALCIUM 8.3 mg/dl (8.5-10.1); CREATININE 0.78 mg/dl (0.60-1.40); POTASSIUM 3.5 mmol/L (3.5-5.1)
[2016-10-18] MEDS: DORNASE ALFA (2500U) 2.5MG/2.5ML INH SCH ×2 (07:21→19:32)
[2016-10-18] MEDS: LORATADINE 10 MG TAB PO SCH (08:17)
[2016-10-18] MEDS: ASCORBIC ACID 500 MG TAB PO SCH ×2 (08:18→21:11)
[2016-10-18] MEDS: CEROVITE ADV FORMULA TAB PO SCH (08:18)
[2016-10-18] MEDS: CHOLECALCIFEROL 1000 INTER.UNIT TAB PO SCH (08:18)
[2016-10-18] MEDS: CALCIUM 600MG + VIT D 400 IU TAB PO SCH ×2 (08:19→21:11)
[2016-10-18] MEDS: BUDESONIDE 90 MCG INH INH SCH ×2 (08:21→21:10)
[2016-10-18] MEDS: MOMETASONE FORMOTEROL INH SCH ×2 (08:21→21:10)
[2016-10-18] MEDS: GUAIFENESIN 600 MG TABCR PO SCH ×2 (08:21→21:12)
[2016-10-18] MEDS: TIOTROPIUM BROMIDE 5 PUFF/90 MCG INH INH SCH (08:21)
[2016-10-18] MEDS: PANTOprazole SOD 40 MG TAB PO SCH (08:22)
[2016-10-18] MEDS: OMEGA-3 (PURIFIED FISH OIL) 1 GM CAP PO SCH (08:22)
[2016-10-18] MEDS: ASPIRIN 81 MG ECTAB PO SCH (08:23)
[2016-10-18] MEDS: AZITHROMYCIN IV 500 MG in DEXTROSE 5% 250ML 250 ML IV SCH (08:26)
--- NOTE | 2016-10-18 10:52 | Pulmonology Progress Note ---
Pulmonary Progress Note Date of Service Oct 18, 2016. Attending Dr. Weller Subjective Feeling improved today. Has been ambulation throughout the hallways with some mild BENAVIDES at end of walks. Otherwise tolerating exertion well and moving about the room without limitation. No wheeze. Cough remains non-productive subjectively improved. Slept well over the night last night. Appetite mildly reduced but in-tact. Objective 41-year-old male admitted to [facility] with bilateral pneumonia. Prior records reviewed. PMHx includes: Bronchiectasis, asthma (symptoms age 19 - [employer]: Dulera, Pulmicort, and Spiriva]), bilateral PE and LLE DVT (07/2016, no RV strain on ECHO 07/2016 + warfarin), scoliosis, pectus excavatum, history of schistosomiasis, h/o aspiration pneumonia, hypothyroid, anxiety, h/o ÁNGEL dx 2012 ( mild dx 08/2012 - not treated), history of typhoid, history of malaria, Aspergillus pneumonia, reflux esophagitis, and a station tube dysfunction. 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 He is a lifelong nonsmoker. Patient admitted through [facility] ER 10/15/16 with 4-day h/o fevers and cough despite beginning doxycycline as outpatient. In the ER he was hypoxia (mid-high 80s RA). CXR + Bilateral lower lobe airspace opacities Left > right. Influenza: negative. He was treated with azithromycin, pip-tazo, Vancomycin, IV steroid and bronchodilators with steady clinical improvement. Today: - 96% - RA - Afebrile, HD stable - WBC/Hgb/Hct/Plts: 5.43/13.9/41.3/142 - INR: 3.1 - Currently: Azithromycin #3 and pip-tazo #4 - Prednisone: 40mg PO Physical Exam: Constitutional: Well developed, thin male sitting in chair at bedside. No acute distress. Head: + facial symmetry, small circumference Eyes: EOMi, PERRLA, no conjunctival injection Mouth: Moist mucous membranes Neck: Trachea midline. No adenopathy or masses Respiratory: Non-labored respirations. Coarse bibasilar crackles Left > Right. No wheeze. Chest: pectus excavatum Cardiovascular: RRR, no MRG. +2 radial pulses. <1s capillary refill. MSK/Extremities: Moving and developed symmetrically. + bilateral varicosities. No peripheral edema. No calf tenderness. Neurologic: A&O, data recall in-tact. Appropriate affect. Assessment & Plan 41-yo male hospital day #4 admitted with bilateral pneumonia and hypoxia. He is improving steadily and transitioned to his home inhalers and PO prednisone. Repeat CXR tomorrow AM and if continues to be clinically stable, anticipate readiness for discharge on prednisone taper with pulmonary outpatient follow-up in 2-weeks. Patient and chart reviewed and plan agreed upon. Data Medications: Current Inpatient Medications Medications (Trade) Dose Ordered Sig/Dena Route Start Time Stop Time Status Last Admin Dose Admin Acetaminophen (Tylenol Tab) 650 mg Q4H PRN PO 10/15/16 21:45 11/14/16 21:44 Zolpidem Tartrate (Ambien Tab) 5 mg HSZ PRN PO 10/15/16 21:45 11/14/16 21:44 Ascorbic Acid (Vitamin C Tab) 500 mg BID PO 10/16/16 09:00 11/15/16 08:59 10/18/16 08:18 500 MG Calcium/Vitamin D (Caltrate Plus Tab) 1 tab BID PO 10/16/16 09:00 11/15/16 08:59 10/18/16 08:19 1 TAB Fish Oil ([place]-3 (Purified Fish Oil) Cap) 1 gm DAILY PO 10/16/16 09:00 11/15/16 08:59 10/18/16 08:22 1 GM Levothyroxine Sodium (Synthroid Tab) 25 mcg DAILYBB PO 10/16/16 06:30 11/15/16 06:59 10/18/16 05:49 25 MCG Loratadine (Claritin Tab) 10 mg DAILY PO 10/16/16 09:00 11/15/16 08:59 10/18/16 08:17 10 MG Montelukast Sodium (Singulair Tab) 10 mg QPM PO 10/16/16 21:00 11/15/16 20:59 10/17/16 21:02 10 MG Multivitamins/ Minerals (Multivitamin W/ Minerals Tab) 1 tab DAILY PO 10/16/16 09:00 11/15/16 08:59 10/18/16 08:18 1 TAB Cholecalciferol (Vitamin D Tab) 2,000 inter.unit QAM PO 10/16/16 09:00 11/15/16 08:59 10/18/16 08:18 2,000 INTER.UNIT Pantoprazole Sodium 40 mg 40 mg QAM PO 10/16/16 09:00 11/15/16 08:59 10/18/16 08:22 40 MG Piperacillin Sod/ Tazobactam Sod/ Dextrose (Zosyn Iv/D5 100ml) 115 ml @ 28.75 mls/ hr Q8H IV 10/16/16 04:00 10/23/16 03:59 10/18/16 04:11 28.75 MLS/HR Ondansetron HCl (Zofran Inj) 4 mg Q6H PRN IV 10/15/16 22:00 11/14/16 21:59 Guaifenesin 600 mg 600 mg BID PO 10/16/16 09:00 11/15/16 08:59 10/18/16 08:21 600 MG Azithromycin/ Dextrose (Zithromax IV/D5 250ml) 255 ml @ 125 mls/hr DAILY IV 10/16/16 09:00 10/23/16 08:59 10/18/16 08:26 125 MLS/HR Piperacillin Sod/ Tazobactam Sod (Consult) 1 ea UD PRN N/A 10/15/16 23:45 11/14/16 23:44 Aspirin (Ecotrin Tab) 81 mg QAM PO 10/16/16 09:00 11/15/16 08:59 10/18/16 08:23 81 MG Diclofenac Sodium (Voltaren 1% Top Gel) 1 appln DAILY PRN EXT 10/16/16 01:15 11/15/16 01:14 Prednisone (PredniSONE TAB) 20 mg BID PO 10/17/16 09:00 11/16/16 08:59 10/18/16 08:18 20 MG Tiotropium [place] (Spiriva Handihaler Inhaler) 1 puff DAILY INH 10/18/16 09:00 11/17/16 08:59 10/18/16 08:21 1 PUFF Budesonide (Pulmicort Inhaler) 2 puffs BID INH 10/17/16 21:00 11/16/16 20:59 10/18/16 08:21 2 PUFFS Dornase [place] (Pulmozyme Inhalation Soln 2.5ml Amp) 2.5 ml BIDR INH 10/17/16 20:00 11/16/16 19:59 10/18/16 07:21 2.5 ML Mometasone Furoate/ Formoterol Fumar (Dulera) 2 ea BID INH 10/17/16 21:00 11/16/16 20:59 10/18/16 08:21 2 EA I & O: 24-Hour Column 10/18/16 08:00 Intake Total 1422 ml Output Total 1400 ml Balance 22 ml Vital Signs: Date Time Temp Pulse Resp B/P Pulse Ox O2 Delivery O2 Flow Rate FiO2 10/18/16 07:35 36.6 94 18 106/67 96 Room Air 10/18/16 07:21 98 12 96 Room Air 10/17/16 23:08 36.6 88 20 105/70 93 Room Air 10/17/16 20:10 90 16 92 Room Air 10/17/16 16:10 36.6 89 18 108/67 93 Room Air 10/17/16 16:00 93 Room Air 10/17/16 12:00 Room Air 10/17/16 11:33 36.3 93 18 107/64 93 Room Air Laboratory Results: Last 24 Hours Test 10/18/16 06:13 White Blood Count 5.43 K/uL Red Blood Count 4.57 M/uL Hemoglobin 13.9 g/dL Hematocrit 41.3 % Mean Corpuscular Volume 90.4 fL Mean Corpuscular Hemoglobin 30.4 pg Mean Corpuscular Hemoglobin Concent 33.7 g/dl Platelet Count 142 K/uL Mean Platelet Volume 10.9 fL Neutrophils (%) (Auto) 77.9 % Lymphocytes (%) (Auto) 12.2 % Monocytes (%) (Auto) 9.0 % Eosinophils (%) (Auto) 0.0 % Basophils (%) (Auto) 0.2 % Neutrophils # (Auto) 4.23 K/uL Lymphocytes # (Auto) 0.66 K/uL Monocytes # (Auto) 0.49 K/uL Eosinophils # (Auto) 0.00 K/uL Basophils # (Auto) 0.01 K/uL RDW Standard Deviation 50.8 fL RDW Coefficient of Variation 15.3 % Immature Granulocyte % (Auto) 0.7 % Immature Granulocyte # (Auto) 0.04 K/uL Prothrombin Time 35.2 SECONDS Prothromb Time International Ratio 3.1 Sodium Level 145 mmol/L Potassium Level 3.5 mmol/L Chloride Level 108 mmol/L Carbon Dioxide Level 26 mmol/L Anion Gap 11.0 mmol/L Blood Urea Nitrogen 19 mg/dl Creatinine 0.78 mg/dl Est Creatinine Clear Calc Drug Dose 116.4 ml/min Estimated GFR () 129.0 Estimated GFR (Non- 111.3 BUN/Creatinine Ratio 24.5 Random Glucose 120 mg/dl Calcium Level 8.3 mg/dl Magnesium Level 2.0 mg/dl
[2016-10-18] MEDS ORDERED: WARFARIN SOD 5 MG TAB PO ONE (12:45)
--- NOTE | 2016-10-18 13:26 | Hospitalist Progress Note ---
Hospitalist Progress Note Date of Service Oct 18, 2016. (Lynnette Nielson PA-C) Subjective Pt evaluation today including: conversation w/ patient, conversation w/ family , physical exam, chart review, lab review, review of studies, review of inpatient medication list Patient reports breathing is improved. He is currently off oxygen. Still unable to bring up any mucus. Denies any fever or chills. No chest pain or pressure. Additional Comments: 6 system review negative. Please see pertinent positives in the history of present illness section. (Lynnette Nielson PA-C) Objective Vital Signs Date Time Temp Pulse Resp B/P Pulse Ox O2 Delivery O2 Flow Rate FiO2 10/18/16 08:00 96 Room Air 10/18/16 07:35 36.6 94 18 106/67 96 Room Air 10/18/16 07:21 98 12 96 Room Air 10/17/16 23:08 36.6 88 20 105/70 93 Room Air 10/17/16 20:10 90 16 92 Room Air 10/17/16 16:10 36.6 89 18 108/67 93 Room Air 10/17/16 16:00 93 Room Air (Lynnette Nielson PA-C) Physical Exam General Appearance: no apparent distress Eyes: EOMI ENT: + pertinent finding (no eczema noted on the tongue. Somewhat dry.) Neck: no JVD Respiratory/Chest: + pertinent finding (crackles at the bases bilaterally. No tachypnea. No accessory muscle use. No wheezing bilaterally.) Cardiovascular: + tachycardia (mildly tachycardic. No murmur.) Abdomen: normal bowel sounds, non tender, soft Extremities: non-tender, no pedal edema Neurologic/Psychiatric: oriented x 3 Skin: warm/dry (Lynnette Nielson PA-C) Laboratory Results 10/18/16 06:13 Red Blood Count 4.57, Mean Corpuscular Volume 90.4, Mean Corpuscular Hemoglobin 30.4, Mean Corpuscular Hemoglobin Concent 33.7, Mean Platelet Volume 10.9, Neutrophils (%) (Auto) 77.9, Lymphocytes (%) (Auto) 12.2, Monocytes (%) (Auto) 9.0, Eosinophils (%) (Auto) 0.0, Basophils (%) (Auto) 0.2, Neutrophils # (Auto) 4.23, Lymphocytes # (Auto) 0.66, Monocytes # (Auto) 0.49, Eosinophils # (Auto) 0.00, Basophils # (Auto) 0.01 10/18/16 06:13 Test 10/18/16 06:13 White Blood Count 5.43 K/uL (4.8-10.8) Red Blood Count 4.57 M/uL (4.7-6.1) Hemoglobin 13.9 g/dL (14.0-18.0) Hematocrit 41.3 % (42-52) Mean Corpuscular Volume 90.4 fL (80-100) Mean Corpuscular Hemoglobin 30.4 pg (25-34) Mean Corpuscular Hemoglobin Concent 33.7 g/dl (32-36) Platelet Count 142 K/uL (130-400) Mean Platelet Volume 10.9 fL (7.4-10.4) Neutrophils (%) (Auto) 77.9 % Lymphocytes (%) (Auto) 12.2 % Monocytes (%) (Auto) 9.0 % Eosinophils (%) (Auto) 0.0 % Basophils (%) (Auto) 0.2 % Neutrophils # (Auto) 4.23 K/uL (1.4-6.5) Lymphocytes # (Auto) 0.66 K/uL (1.2-3.4) Monocytes # (Auto) 0.49 K/uL (0.11-0.59) Eosinophils # (Auto) 0.00 K/uL (0-0.5) Basophils # (Auto) 0.01 K/uL (0-0.2) RDW Standard Deviation 50.8 fL (36.4-46.3) RDW Coefficient of Variation 15.3 % (11.5-14.5) Immature Granulocyte % (Auto) 0.7 % Immature Granulocyte # (Auto) 0.04 K/uL (0.00-0.02) Prothrombin Time 35.2 SECONDS (9.0-12.0) Prothromb Time International Ratio 3.1 (0.9-1.1) Anion Gap 11.0 mmol/L (3-11) Est Creatinine Clear Calc Drug Dose 116.4 ml/min Estimated GFR () 129.0 Estimated GFR (Non- 111.3 BUN/Creatinine Ratio 24.5 (10-20) Calcium Level 8.3 mg/dl (8.5-10.1) Magnesium Level 2.0 mg/dl (1.8-2.4) Last 24 Hours Test 10/18/16 06:13 White Blood Count 5.43 K/uL Red Blood Count 4.57 M/uL Hemoglobin 13.9 g/dL Hematocrit 41.3 % Mean Corpuscular Volume 90.4 fL Mean Corpuscular Hemoglobin 30.4 pg Mean Corpuscular Hemoglobin Concent 33.7 g/dl Platelet Count 142 K/uL Mean Platelet Volume 10.9 fL Neutrophils (%) (Auto) 77.9 % Lymphocytes (%) (Auto) 12.2 % Monocytes (%) (Auto) 9.0 % Eosinophils (%) (Auto) 0.0 % Basophils (%) (Auto) 0.2 % Neutrophils # (Auto) 4.23 K/uL Lymphocytes # (Auto) 0.66 K/uL Monocytes # (Auto) 0.49 K/uL Eosinophils # (Auto) 0.00 K/uL Basophils # (Auto) 0.01 K/uL RDW Standard Deviation 50.8 fL RDW Coefficient of Variation 15.3 % Immature Granulocyte % (Auto) 0.7 % Immature Granulocyte # (Auto) 0.04 K/uL Prothrombin Time 35.2 SECONDS Prothromb Time International Ratio 3.1 Sodium Level 145 mmol/L Potassium Level 3.5 mmol/L Chloride Level 108 mmol/L Carbon Dioxide Level 26 mmol/L Anion Gap 11.0 mmol/L Blood Urea Nitrogen 19 mg/dl Creatinine 0.78 mg/dl Est Creatinine Clear Calc Drug Dose 116.4 ml/min Estimated GFR () 129.0 Estimated GFR (Non- 111.3 BUN/Creatinine Ratio 24.5 Random Glucose 120 mg/dl Calcium Level 8.3 mg/dl Magnesium Level 2.0 mg/dl (Lynnette Nielson PAJaironC) Assessment and Plan 41 yo male with history of scoliosis, pectus excavatum, h/o PE, h/o schistocytosis and malaria infection, presented to the ED with worsening cough, fevers, poor appetite for several days and diagnosed with bibasilar infiltrates on CXR, admitted to telemetry and started on broad spectrum antibiotics - Acute respiratory failure with Hypoxia secondary to Bibasilar pneumonia: continue Zosyn and Zithromax, MRSA d/c'ed-neg MRSA nare swab Was on Solu-medrol IV-->tapered to Prednisone 20 mg BID Continue Mucinex Supportive care with flutter valve and IS Continue nebs Pulmicort, Spiriva, Dulera on board Repeat CXR in AM Pulmonary on board - Sinus tachycardia: due to infection, Diltiazem still on hold for low BP. Will likely restart tomorrow was on IVF-->tolerating PO. IVF d/c'ed repeat EKG with no changes to suggest ischemia, troponin negative, no chest pain echo three months ago that was normal -Hypothyroidism continue levothyroxine sodium at 25 g by mouth daily. -Allergies continue montelukast sodium 10 mg by mouth daily and loratadine 10 mg by mouth daily. -GERD change omeprazole 40 mg by mouth daily to pantoprazole 40 mg by mouth daily. -PE Patient's home dose of Coumadin was on hold due to an elevated INR. INR improved today at 3.1 Restart patient's home dose of Coumadin. He typically takes 10 mg daily except for Mondays and he takes 15 mg. We will start at 10 mg today and reassess INR in the morning INR was elevated at 4.3 on admission, repeat today is 4.6 despite holding Coumadin no signs of bleeding, would just continue to hold Coumadin and follow INR daily -DVT prophylaxis coumadin TEDS, SCDs -DISPO repeat CXR in AM Hopeful for d/c home tomorrow or the following day self care either today or tomorrow -CODE STATUS LEVEL I FULL CODE (Lynnette Nielson, PAJaironC) Attending Attestation: Pt seen/examined, chart reviewed, care plan d/w ALANNAH Nielson. I agree w/ the go components of her documentation. Pt feeling "much better." Denies dyspnea. Worried that he can't expectorate sputum. Appetite better. VSS, O2 sats normal in RA gen - NAD neck - no JVD heart - RRR lungs - bibasilar rales, L>R, no wheeze abd - soft, NT ext - no edema chest - pectus deformity labs - CBC, BMP acceptable A/P: 1. acute hypoxic resp failure - resolved, 2nd to b/l pneumonia. 2. b/l pneumonia - resolving. Appreciate pulmonary consult & recs. Aggressive pulmonary toilet - flutter valve, pulmozyme, mucinex, walking, etc. Today is day # 4 of abx. Cont zosyn and azithromycin. Agree w/ transition to PO abx tomorrow. 3. asthma w/ exacerbation - improved. wean steroids. 4. h/o bronchiectasis - noted. This is likely reason for issues with expectoration of sputum. Defer other recommendations to pulmonary. 5. h/o DVT with PE - resume coumadin today; INR daily. update Abel Gunter MD (Abel Gunter MD)
[2016-10-18] MEDS: AMPICILLIN/SULBACTAM SOD INJ 3,000 MG in SODIUM CHLORIDE 0.9% 100ML 100 ML IV SCH ×2 (18:32→23:53)
[2016-10-18] MEDS: MONTELUKAST SOD 10 MG TAB PO SCH (21:12)
[2016-10-19 05:58] LABS: MEAN CELL VOLUME 89.4 fL (80-100); MEAN CORPUSCULAR HEMOGLOBIN 30.1 pg (25-34); MEAN CORPUSCULAR HGB CONC 33.7 g/dl (32-36); MEAN PLATELET VOLUME 9.7 fL (7.4-10.4); PLATELET COUNT 150 K/uL (130-400); RED BLOOD COUNT 4.25 M/uL (4.7-6.1); WHITE BLOOD COUNT 4.81 K/uL (4.8-10.8)
[2016-10-19] MEDS: LEVOTHYROXINE 25 MCG TAB PO SCH (06:06)
[2016-10-19] MEDS: AMPICILLIN/SULBACTAM SOD INJ 3,000 MG in SODIUM CHLORIDE 0.9% 100ML 100 ML IV SCH ×4 (06:06→23:53)
[2016-10-19 06:11] LABS: INR 3.3 (0.9-1.1); PROTHROMBIN TIME (PATIENT) 37.1 SECONDS (9.0-12.0)
[2016-10-19 06:28] LABS: CALCIUM 8.1 mg/dl (8.5-10.1); CREATININE 0.67 mg/dl (0.60-1.40); POTASSIUM 3.7 mmol/L (3.5-5.1)
[2016-10-19 07:33] VITALS: PULSE 93; O2SAT 94
[2016-10-19] MEDS: DORNASE ALFA (2500U) 2.5MG/2.5ML INH SCH ×2 (07:33→18:48)
[2016-10-19 07:38] VITALS: BP 109/73; PULSE 97; TEMP 36.4; O2SAT 94
[2016-10-19] MEDS: TIOTROPIUM BROMIDE 5 PUFF/90 MCG INH INH SCH (08:35)
[2016-10-19] MEDS: CEROVITE ADV FORMULA TAB PO SCH (08:35)
[2016-10-19] MEDS: CHOLECALCIFEROL 1000 INTER.UNIT TAB PO SCH (08:35)
[2016-10-19] MEDS: AZITHROMYCIN IV 500 MG in DEXTROSE 5% 250ML 250 ML IV SCH (08:35)
[2016-10-19] MEDS: BUDESONIDE 90 MCG INH INH SCH ×2 (08:36→20:31)
[2016-10-19] MEDS: MOMETASONE FORMOTEROL INH SCH ×2 (08:36→20:30)
[2016-10-19] MEDS: PANTOprazole SOD 40 MG TAB PO SCH (08:36)
[2016-10-19] MEDS: GUAIFENESIN 600 MG TABCR PO SCH ×2 (08:37→20:29)
[2016-10-19] MEDS: ASCORBIC ACID 500 MG TAB PO SCH ×2 (08:37→20:29)
[2016-10-19] MEDS: OMEGA-3 (PURIFIED FISH OIL) 1 GM CAP PO SCH (08:37)
[2016-10-19] MEDS: CALCIUM 600MG + VIT D 400 IU TAB PO SCH ×2 (08:37→20:28)
[2016-10-19] MEDS: LORATADINE 10 MG TAB PO SCH (08:37)
--- NOTE | 2016-10-19 09:14 | DIAGNOSTIC IMAGING REPORT ---
CHEST 2 VIEWS ROUTINE CLINICAL HISTORY: ? Improving PNA pneumonia COMPARISON STUDY: 10/15/2016 FINDINGS: Bibasilar parenchymal infiltrates slightly improved compared to the prior study. There is significant residual. Mid and upper lungs are considered clear. IMPRESSION: Mild improvement in the patient's bibasilar parenchymal infiltrates. Electronically signed by: Rambo Chapman M.D. 10/19/2016 9:12 AM Dictated Date/Time: 10/19/2016 9:05 AM
[2016-10-19] MEDS: NYSTATIN SUSP 500,000 U/5 ML UDC PO SCH ×3 (12:17→20:28)
[2016-10-19 15:02] VITALS: BP 118/79; PULSE 89; TEMP 36.5; O2SAT 94
--- NOTE | 2016-10-19 16:59 | Progress Note ---
Subjective Date of Service: Oct 19, 2016. Subjective Pt evaluation today including: conversation w/ patient, physical exam, chart review, lab review, review of studies (cxr), conversation w/ banking consultant ( pulmonary) Pain: denies PO Intake: very good/improved Voiding: no voiding problems no issues overnight walking the hallways w/o dyspnea minimal cough good appetite sleeping ok no c/o pain in any location Problem List Medical Problems: (1) Bilateral pneumonia Status: Acute (2) Bilateral pneumonia Status: Acute (3) Dizziness Status: Acute (4) Failure of outpatient treatment Status: Acute (5) Leukopenia Status: Acute (6) Right otitis media Status: Acute (7) Supratherapeutic INR Status: Acute (8) Thrombocytopenia Status: Acute (9) Vomiting Status: Acute Review of Systems Constitutional: No fever Respiratory: No dyspnea on exertion, No shortness of breath Cardiac: No orthopnea Abdomen: No diarrhea, No nausea, No pain, No vomiting Objective Vital Signs Date Time Temp Pulse Resp B/P Pulse Ox O2 Delivery O2 Flow Rate FiO2 10/19/16 15:02 36.5 89 20 118/79 94 Room Air 10/19/16 08:00 Room Air 10/19/16 07:38 36.4 97 18 109/73 94 10/19/16 07:33 93 14 94 Room Air 10/19/16 00:00 Room Air 10/18/16 23:55 36.6 89 20 120/70 92 Room Air 10/18/16 20:10 37.0 50 18 122/57 90 Room Air 10/18/16 19:32 78 14 93 Room Air Physical Exam General Appearance: no apparent distress, + thin ENT: + pertinent finding (thrush plaques on tongue and buccal mucosa) Neck: no JVD Respiratory/Chest: no respiratory distress, no accessory muscle use, + crackles (b/l bases, L>R), + pertinent finding (no wheezing or rhonchi; no increased WOB ) Cardiovascular: regular rate, rhythm, no gallop, no murmur Abdomen: normal bowel sounds, non tender, soft, no organomegaly Extremities: no pedal edema Skin: + pertinent finding (varicose veins on legs) Laboratory Results Last 24 Hours Test 10/19/16 05:25 White Blood Count 4.81 K/uL Red Blood Count 4.25 M/uL Hemoglobin 12.8 g/dL Hematocrit 38.0 % Mean Corpuscular Volume 89.4 fL Mean Corpuscular Hemoglobin 30.1 pg Mean Corpuscular Hemoglobin Concent 33.7 g/dl RDW Standard Deviation 50.4 fL RDW Coefficient of Variation 15.4 % Platelet Count 150 K/uL Mean Platelet Volume 9.7 fL Prothrombin Time 37.1 SECONDS Prothromb Time International Ratio 3.3 Sodium Level 147 mmol/L Potassium Level 3.7 mmol/L Chloride Level 110 mmol/L Carbon Dioxide Level 27 mmol/L Anion Gap 10.0 mmol/L Blood Urea Nitrogen 16 mg/dl Creatinine 0.67 mg/dl Est Creatinine Clear Calc Drug Dose 135.5 ml/min Estimated GFR () 137.4 Estimated GFR (Non- 118.5 BUN/Creatinine Ratio 24.0 Random Glucose 117 mg/dl Calcium Level 8.1 mg/dl Assessment and Plan 41yo male with: 1. acute hypoxic resp failure 2nd to b/l pneumonia - resolved. 2. b/l pneumonia - community-acquired vs gram negative. Resolving. Appreciate pulmonary consult & recs. Cont aggressive pulmonary toilet - flutter valve, pulmozyme, mucinex, walking, etc. Today is day #5 of abx. Outpatient records reviewed - had z-pack and doxycycline prior to admission. Will stop azithromycin today. Cont unasyn. Plan for levaquin at d/c (had levaquin in fall 2015 per pharmacy w/o incident and cipro is not a true "allergy"). CXR improved today. 3. asthma w/ exacerbation - improved/resolved. wean steroids. 4. h/o bronchiectasis - noted. Cont aggressive pulmonary toile.t 5. h/o DVT with PE - INR 3.3 today; hold coumadin. anticipate d/c tomorrow AM update Continued [facility] stay due to: multiple IV medications needed Discharge planning: home
[2016-10-19 18:48] VITALS: PULSE 90; O2SAT 94
[2016-10-19] MEDS: MONTELUKAST SOD 10 MG TAB PO SCH (20:30)
[2016-10-19 23:26] VITALS: BP 107/70; PULSE 96; TEMP 36.9; O2SAT 97
[2016-10-20] MEDS: AMPICILLIN/SULBACTAM SOD INJ 3,000 MG in SODIUM CHLORIDE 0.9% 100ML 100 ML IV SCH (06:14)
[2016-10-20] MEDS: LEVOTHYROXINE 25 MCG TAB PO SCH (06:14)
[2016-10-20 06:32] LABS: INR 2.7 (0.9-1.1); PROTHROMBIN TIME (PATIENT) 30.3 SECONDS (9.0-12.0)
[2016-10-20 07:25] VITALS: PULSE 72; O2SAT 98
[2016-10-20] MEDS: DORNASE ALFA (2500U) 2.5MG/2.5ML INH SCH (07:25)
[2016-10-20 07:41] VITALS: BP 125/82; PULSE 95; TEMP 36.3; O2SAT 96
[2016-10-20 08:00] VITALS: O2SAT 96
[2016-10-20] MEDS: MOMETASONE FORMOTEROL INH SCH (08:46)
[2016-10-20] MEDS: TIOTROPIUM BROMIDE 5 PUFF/90 MCG INH INH SCH (08:47)
[2016-10-20] MEDS: LORATADINE 10 MG TAB PO SCH (08:48)
[2016-10-20] MEDS: CALCIUM 600MG + VIT D 400 IU TAB PO SCH (08:48)
[2016-10-20] MEDS: BUDESONIDE 90 MCG INH INH SCH (08:48)
[2016-10-20] MEDS: CEROVITE ADV FORMULA TAB PO SCH (08:49)
[2016-10-20] MEDS: GUAIFENESIN 600 MG TABCR PO SCH (08:49)
[2016-10-20] MEDS: OMEGA-3 (PURIFIED FISH OIL) 1 GM CAP PO SCH (08:49)
[2016-10-20] MEDS: NYSTATIN SUSP 500,000 U/5 ML UDC PO SCH (08:49)
[2016-10-20] MEDS: CHOLECALCIFEROL 1000 INTER.UNIT TAB PO SCH (08:50)
[2016-10-20] MEDS: PANTOprazole SOD 40 MG TAB PO SCH (08:50)
[2016-10-20] MEDS: ASCORBIC ACID 500 MG TAB PO SCH (08:50)
[2016-10-20] MEDS ORDERED: NYSS5 PO (09:55)
[2016-10-20] MEDS ORDERED: AMOX875T PO (09:55)
[2016-10-20] MEDS ORDERED: PRED10TA PO (09:55)
--- NOTE | 2016-10-20 09:59 | Discharge Instructions ---
Discharge Instructions Date of Service Oct 20, 2016. (Lynnette Nielson PA-C) Admission Reason for Admission: Hypoxia, Pneumonia Of Both Lower Lobes (Lynnette Nielson PA-C) Discharge Discharge Diagnosis / Problem: pneumonia (Lynnette Nielson PA-C) Discharge Goals Goal(s): Improve function (Lynnette Nielson PA-C) Activity Recommendations Activity Limitations: resume your previous activity . (Lynnette Nielson PA-C) Instructions / Follow-Up Instructions / Follow-Up You had been treated in the hospital for pneumonia. The following changes/additions have been made to your medication list: -Augmentin 875 mg twice daily for additional 4 days -Prednisone. Please take as directed Please follow up with your piano mover as scheduled. An appointment is being made for you. Please also follow up with your primary care physician within one week It is important to check your INR a daily basis while taking Augmentin. Please report your INR Santiago Roger PA-C. He will make adjustments as necessary Call your doctor or return to the emergency department if you have any of the following symptoms: -Fever of 101F or greater -Persistent vomiting - Persistent diarrhea -Lethargy -Chest pain -Shortness of breath -severe dizziness -weakness on one side of your body (Lynnette Nielson PA-C) Current Hospital Diet Patient's current hospital diet: Gluten Free Diet (Lynnette Nielson PA-C) Discharge Diet Recommended Diet: Regular Diet, Gluten Free Diet (Lynnette Nielson PA-C) Procedures Procedures Performed: chest x ray Bilateral lower lobe airspace opacities, left greater than right. This likely represents a pneumonia. Recommend follow up to resolution. (Lynnette Nielson PA-C) Pending Studies Studies pending at discharge: no (Lynnette Nielson PA-C) Medical Emergencies . Who to Call and When: Medical Emergencies: If at any time you feel your situation is an emergency, please call 911 immediately. . (Lynnette Nielson PA-C) Non-Emergent Contact Non-Emergency issues call your: Primary Care Provider . (Lynnette Nielson PA-C) . "Provider Documentation" section prepared by Lynnette Nielson. (Lynnette Nielson PA-C) Attending Attestation: Pt seen/examined and patient care plan d/w ALANNAH Nielson on day of discharge. I agree with her discharge instructions as outlined. Abel Gunter MD (Abel Gunter MD) VTE Core Measure Inpt VTE Proph given/why not?: Warfarin (Coumadin) (Lynnette Nielson, DREA)
[2016-10-20] MEDS ORDERED: GFNSR600 PO (10:09)
--- NOTE | 2016-10-20 10:10 | Discharge Summary ---
Discharge Summary Date of Service Oct 20, 2016. (Lynnette Nielson PA-C) Discharge Summary Admission Date: Oct 15, 2016 at 21:51 Discharge Date: Oct 20, 2016 Discharge Disposition: Home Principal Diagnosis: bilateral pneumonia Problems/Secondary Diagnoses: Hypertension PE/DVT Asthma Procedures: CHEST ONE VIEW PORTABLE HISTORY: Sepsis COMPARISON: Chest 07/30/2016. FINDINGS: No pneumothorax. No pleural effusions. The heart remains mildly enlarged. Left lower lobe airspace opacity. Right basilar interstitial thickening persists. There are slight increased density within the right medial lung base. IMPRESSION: Bilateral lower lobe airspace opacities, left greater than right. This likely represents a pneumonia. Recommend follow up to resolution. Electronically signed by: Lobo Wilkins M.D. 10/15/2016 8:44 PM Dictated Date/Time: 10/15/2016 8:43 PM The status of this report is Signed. Consultations: Pulmonary (Lynnette Nielson PA-C) Problems/Secondary Diagnoses: pectus excavatum scoliosis h/o bronchiectasis hypothyroidism (Abel Gunter MD) Medication Reconciliation New Medications: Amoxicillin & Pot Clavulanate (Augmentin 875-125 mg) 1 Tab Tab 1 TAB PO BID for 4 Days, #8 TAB Guaifenesin Ext Rel (Mucinex Ext Rel) 600 Mg Tabcr 1200 MG PO Q12 for 4 Days, #8 TAB Prednisone Tab (Prednisone) 10 Mg Tab 10 MG PO UD, #20 TAB 4 tabs x 2 days 3 tabs x 2 days 2 tabs x 2 day 1 tab x 2 days Nystatin (Nystatin) 5 Ml Susp 5 ML PO QID for 5 Days, #20 DOSE Continued Medications: Ascorbic Acid (Vitamin C) 500 Mg Tab 500 MG PO BID Budesonide (Inhalation) (Pulmicort Flexhaler) 180 Mcg/Act Inh 2 PUFFS INH BID for 30 Days, #1 INHALER 6 Refills Calcium/Vitamin D (Os-Tommy 500 Plus D) Tab 600 MG PO BID, TAB Cholecalciferol (Vitamin D3) 2,000 Unit Cap 2000 INTER.UNIT PO DAILY for 90 Days, CAP 3 Refills Diltiazem Hcl (Cardizem) 60 Mg Tab 1 TAB PO DAILY, TAB Fish Oil ([place]-3) 1 Ea Cap 1 CAP PO DAILY, CAP Levalbuterol Tartrate (Levalbuterol Tartrate Hfa) 45 Mcg/Act Aer 2 PUFF PO BID Levothyroxine Sodium (Synthroid) 25 Mcg Tab 25 MCG PO DAILY, TAB Loratadine (Claritin) 10 Mg Tab 10 MG PO DAILY, 0 Refills Mometasone Furoate-Formoterol (Dulera 200/5 Mcg) 1 Aer Aer 2 PUFFS INH BID for 30 Days, #13 GM 3 Refills Montelukast Sod (Montelukast Sodium) 10 Mg Tab 10 MG PO QPM Multivitamins/Minerals (Mvi With Minerals) Tab 1 TAB PO DAILY, TAB Omeprazole (Prilosec) 20 Mg Capcr 40 MG PO DAILY, 0 Refills Tiotropium [place] (Spiriva Handihaler) 30 Puff/540 Mcg Aerp 1 CAP INH DAILY, INHALER Warfarin Sod (Jantoven) 5 Mg Tab 15 MG PO DIRECTED, TAB TAKE A 5 MG TABLET WITH A 10MG TABLET MONDAYS AND THURSDAYS FOR A TOTAL DOSE OF 15MG Warfarin Sod (Jantoven) 10 Mg Tab 10 MG PO DIRECTED, TAB TAKE 10MG EVERY DAY EXCEPT TUESDAY AND TUESDAY. [Xopenex] () 1 DOSE INH Q4-6HRS PRN for SOB/Wheezing NEBULIZER Discontinued Medications: Doxycycline Hyclate (Doxycycline Hyclate) 100 Mg Tab 1 TAB PO Q12 for 10 Days, #20 TAB [Steroids] () PO TAPER UD Referrals At Discharge Follow up Referrals: [employer] Referral - Within 1-2 Weeks with Santiago Roger PA-C Discharge Exam Patient denies shortness of breath. No cough. No fever or chills. Slight fatigue noted. Ready to go home. Denies chest pain Review of Systems: Constitutional: No fever Respiratory: No shortness of breath Cardiovascular: No chest pain Abdomen: No nausea Physical Exam: General Appearance: no apparent distress Eyes: EOMI Neck: no JVD Respiratory/Chest: + pertinent finding (mild crackles at the bases bilaterally-improved) Cardiovascular: regular rate, rhythm Abdomen / GI: normal bowel sounds, non tender, soft Extremities: no calf tenderness, no pedal edema Neurologic/Psychiatric: no motor/sensory deficits, oriented x 3 Skin: warm/dry (Lynnette Nielson PA-C) Hospital Course 41 yo male with history of scoliosis, pectus excavatum, h/o PE, h/o schistocytosis, aspergillosis and malaria infection, presented to the ED with worsening cough, fevers, poor appetite for several days and diagnosed with bibasilar infiltrates on CXR, admitted to telemetry and started on broad spectrum antibiotics - Acute respiratory failure with Hypoxia secondary to Bibasilar pneumonia with Asthma exacerbation: Initially started on Zosyn, Zithromax and vancomycin. Vancomycin was discontinued when MRSA swab came back negative. Pulmonary consulted Was on Solu-medrol IV-->tapered to Prednisone 20 mg BID--> further taper as an outpatient Continue Mucinex 1200 mg BID for additional 4 days Supportive care with flutter valve and IS Continue nebs Pulmicort, Spiriva, Dulera on board Repeat chest x-ray on 10/19 improving D/C home on Augmentin. Total of 10 days of ABX - Sinus tachycardia: due to infection monitored in telemetry for 1 night repeat EKG with no changes to suggest ischemia, troponin negative, no chest pain echo three months ago that was normal treated with IVF Diltiazem was held-->resume at d/c -Hypothyroidism continue levothyroxine sodium at 25 g by mouth daily. -Allergies continue montelukast sodium 10 mg by mouth daily and loratadine 10 mg by mouth daily. -GERD change omeprazole 40 mg by mouth daily to pantoprazole 40 mg by mouth daily. -PE INR initially elevated. Peaked at 4.6. His home dose of Coumadin was held. On day of DC, INR is therapeutic at 2.7. Resume home dosing of 10 mg every day except Mondays and 15 mg Monitor daily INR while taking antibiotics -DVT prophylaxis coumadin TEDS, SCDs -DISPO DC home self care- -CODE STATUS LEVEL I FULL CODE Total Time Spent: Greater than 30 minutes This includes examination of the patient, discharge planning, medication reconciliation, and communication with other providers. (Lynnette Nielson, PA-C) Attending Attestation: Pt seen/examined, and care plan d/w ALANNAH Nielson on day of discharge. I agree with the go components of her discharge summary. 41yo male with h/o scoliosis, pectus excavatum, bronchiectasis, and asthma who presented with bilateral lower lobe pneumonia. He was treated with IV antibiotic therapy and steroids along with supportive care. Blood cultures remained negative while hospitalized. He improved over several days and will d/c home on a course of augmentin and prednisone. Follow-up with the pulmonary division was arranged at discharge. Discharge exam - gen - thin, NAD neck - no JVD heart - RRR lungs - mild rales both bases, worse on left abd - soft, NT, BS+ chest - pectus deformity back - scoliosis ext - no edema Abel Gunter MD (Abel Gunter MD) Discharge Instructions Please refer to the electronic Patient Visit Report (Discharge Instructions) for additional information. (Lynnette Nielson PA-C) Follow-Up Primary care physician 1 week Pulmonary 1-2 weeks (Lynnette Nielson PA-C) Additional Copies To Barrington dAorno M.D.; Santiago Roger PA-C
[2016-10-20 11:01] VITALS: BP 125/82; PULSE 95; TEMP 36.3; O2SAT 96
[2017-02-28] MEDS ORDERED: EPP3/2 IM (10:32)
[2017-02-28] MEDS ORDERED: LORA-741 PO (10:32)
[2017-02-28] MEDS ORDERED: DICL1GEL34 TOP (10:32)
[2017-02-28] MEDS ORDERED: CPRDOTS OT (10:32)
[2017-02-28] MEDS ORDERED: RHNAQIN NAE (10:32)
[2017-02-28] MEDS ORDERED: DNSIS60 INJ (10:32)
[2017-03-12] MEDS ORDERED: TRAMTAB5 PO (09:26)
== END 2016-10-20 11:48 | disposition home or self-care (01) | DRG 177 ==
LOC: ENRESERVTM → ENRESERVDT → C.EDB 18:53 → UNDOADMIN 21:51 → C.MED 21:51
PROVIDERS: ADMIT Hospitalist; ATTEND Internal Medicine
DX: J69.0 Pneumonitis due to inhalation of food and vomit (principal); J96.01 Acute respiratory failure with hypoxia; K90.41 Non-celiac gluten sensitivity; K21.9 Gastro-esophageal reflux disease without esophagitis; E03.9 Hypothyroidism, unspecified; E78.5 Hyperlipidemia, unspecified; M41.9 Scoliosis, unspecified; D72.819 Decreased white blood cell count, unspecified; D69.6 Thrombocytopenia, unspecified; R79.1 Abnormal coagulation profile; G47.33 Obstructive sleep apnea (adult) (pediatric); I10 Essential (primary) hypertension; R94.31 Abnormal electrocardiogram [ECG] [EKG]; M81.0 Age-related osteoporosis without current pathological fracture; R00.0 Tachycardia, unspecified; Q67.6 Pectus excavatum; Z86.711 Personal history of pulmonary embolism; Z86.718 Personal history of other venous thrombosis and embolism; Z87.09 Personal history of other diseases of the respiratory system; Z88.1 Allergy status to other antibiotic agents; Z88.5 Allergy status to narcotic agent; Z86.12 Personal history of poliomyelitis; Z86.13 Personal history of malaria; Z79.51 Long term (current) use of inhaled steroids; Z79.899 Other long term (current) drug therapy; Z79.01 Long term (current) use of anticoagulants

== ENCOUNTER → 2016-11-09 | Outpatient (CLI) | payer OTHER ==
[~2016-11-09] MED LIST changes: +ACET-749 PO; +AMOX875T PO; +AZIT-57 PO; -AZIT250T PO; +BUDE180I INH; +BUDE1SUS8 NAE; +CPRDOTS OT; -CRD30 PO; +DICL1GEL34 TOP; +DILT40TA PO; +DNSIS60 INJ; +EPP3/2 IM; -FOLI1TAB7 PO; +LEVA1.255 NEB; +LEVA45AE INH; +LEVO25TA PO; +LORA-741 PO; +MULT-513 PO; +NYSS5 PO; -PEDI1CHW PO; -PLMIN200 INH; +PRD20 PO; +PRED10TA PO; +RHNAQIN NAE; +SPRIN/30 INH; -SYN25 PO; -TIOTCAP INH; +TRAMTAB5 PO; +VALA500T60 PO; +WARF10TA4 PO; +WARF5TAB7 PO; +XOPENEX INH
[2016-11-09 13:31] LABS: CHOLESTEROL/HDL RATIO 2.5; PROSTATE SPECIFIC ANTIGEN 0.186 ng/ml (0.000-4.000)
== END | disposition home or self-care (01) ==
LOC: C.LABBFT 07:48
PROVIDERS: ATTEND Internal Medicine
DX: Z12.5 Encounter for screening for malignant neoplasm of prostate (principal); M81.0 Age-related osteoporosis without current pathological fracture; Z13.6 Encounter for screening for cardiovascular disorders

== ENCOUNTER → 2017-01-20 | Outpatient (CLI) | payer OTHER ==
--- NOTE | 2017-01-20 09:12 | DIAGNOSTIC IMAGING REPORT ---
SINUS CT CT DOSE: 618.95 mGy.cm HISTORY: Pain CHRONIC MASTOIDITIS TECHNIQUE: Multiaxial CT images of the paranasal sinuses were performed and reformatted in the coronal plane without the use of contrast. COMPARISON: Brain CT dated 10/11/2016 FINDINGS: Mastoid air cells demonstrate opacification at their mid to inferior cells. Several small bony sequestrations are present. The superior aspects of the cells are well aerated. Structures of the middle ears demonstrate normal appearance on the right with a tympanic membrane unremarkable. The left tympanic membrane is slightly retracted. Ossicles show no significant destructive change. Sinuses demonstrate moderate hypertrophic change of the nasal turbinates. There is mild nasal septal displacement to the left. Bulk of the sinuses are relatively clear with only minimal scattered mucosal thickening. Orbital margins are intact. The orbits are unremarkable. IMPRESSION: 1. Complete to near complete opacification of the mid to inferior mastoid air cells bilaterally. 2. Moderate destructive changes several internal mastoid septations with several small bony sequestrations. 3. The outer margins of the mastoids appear to be intact. 4. Mild scarring and retraction of left tympanic membrane with the middle ear structures otherwise generally intact. Electronically signed by: Rambo Chapman M.D. 01/20/2017 9:11 AM Dictated Date/Time: 01/20/2017 9:03 AM
== END | disposition home or self-care (01) ==
LOC: C.CTS 08:48
PROVIDERS: ATTEND Otolaryngology
DX: H70.11 Chronic mastoiditis, right ear (principal)

== ENCOUNTER → 2017-03-10 | Outpatient (CLI) | payer OTHER ==
[~2017-03-10] MED LIST changes: -ACET-749 PO; -AMOX875T PO; -AZIT-57 PO; -BUDE1SUS8 NAE; -LEVA1.255 NEB; -LEVA45AE INH; -PRD20 PO; -PRED10TA PO; -VALA500T60 PO; -WARF10TA4 PO; -WARF5TAB7 PO
--- NOTE | 2017-03-10 10:46 | DIAGNOSTIC IMAGING REPORT ---
BILATERAL LOWER EXTREMITY VENOUS DOPPLER HISTORY: Leg swelling. History of DVT. Preop. COMPARISON STUDY: Lower extremity venous Doppler 07/16/2016. FINDINGS: There is normal compressibility, flow, and augmentation within the right lower extremity deep venous system. Persistent heterogeneous thrombus within the left popliteal vein which is nonocclusive. This is similar to the prior study and is likely chronic. The remaining left lower extremity deep venous structures are patent. IMPRESSION: No DVT within the right lower extremity. 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 Electronically signed by: Lobo Wilkins M.D. 03/10/2017 10:45 AM Dictated Date/Time: 03/10/2017 10:42 AM
== END | disposition home or self-care (01) ==
LOC: C.ULTR 09:59
PROVIDERS: ATTEND Internal Medicine Pulmonary Disease
DX: I82.409 Acute embolism and thrombosis of unspecified deep veins of unspecified lower extremity (principal)

== ENCOUNTER 2017-03-11 05:25 | Observation (INO) | payer OTHER ==
[2017-02-28 10:32] VITALS: BMI 21.0
[2017-03-07 14:45] LABS: BASO % 0.2 %; BASO ABS # 0.01 K/uL (0-0.2); COMPLETE YES; EOS % 0.7 %; HEMATOCRIT 42.4 % (42-52); IG% 0.7 %; LYMPH % 22.4 %; LYMPH ABS # 0.92 K/uL (1.2-3.4); MEAN CELL VOLUME 95.9 fL (80-100); MEAN CORPUSCULAR HEMOGLOBIN 31.4 pg (25-34); MEAN CORPUSCULAR HGB CONC 32.8 g/dl (32-36); MEAN PLATELET VOLUME 10.2 fL (7.4-10.4); PLATELET COUNT 153 K/uL (130-400); RED BLOOD COUNT 4.42 M/uL (4.7-6.1)
[2017-03-07 15:12] LABS: BUN/CREATININE RATIO 20.5 (10-20); CALCIUM 9.1 mg/dl (8.5-10.1); CREATININE 0.78 mg/dl (0.60-1.40); POTASSIUM 4.1 mmol/L (3.5-5.1)
--- NOTE | 2017-03-10 07:58 | History and Physical ---
History & Physical Date Mar 10, 2017. Chief Complaint ear infections and hearing loss History of Present Illness The patient is a 41 year old male with complaints of perforation right ear s/p tympanoplasty x 2, also COME left ear with hearing loss Past Medical/Surgical History Medical Problems: (1) Aspiration pneumonia (2) Hypoxia (3) Pneumonia (4) Pneumonia of both lower lobes Additional History Hepatic Disease: No Endocrine Disorder: No Kidney Disease: No Hypertension: No Heart Disease: No Bleeding Tendencies: No Infectious Diseases: No Allergies Coded Allergies: Gluten (Verified Allergy, Unknown, patient preference-gluten free, 02/28/17 ) Oxycodone (Verified Adverse Reaction, Mild, GI upset , 02/28/17) Ciprofloxacin (Verified Adverse Reaction, Unknown, issue with legs , ) Home Medications Scheduled Ascorbic Acid (Vitamin C), 500 MG PO BID Budesonide (Rhinocort Aqua), 1 SPRAY SIDNEY DAILY Budesonide (Inhalation) (Pulmicort Flexhaler), 2 PUFFS INH BID Calcium/Vitamin D (Os-Tommy 500 Plus D), 600 MG PO BID Cholecalciferol (Vitamin D3), 2,000 INTER.UNIT PO DAILY Ciprofloxacin/Dexamethasone (Ciprodex 0.3-0.1 %), 4 DROPS OT BID Denosumab (Prolia), 1 DOSE INJ UD Diltiazem Hcl (Cardizem), 1 TAB PO DAILY Fish Oil (May-3), 1 CAP PO DAILY Levalbuterol Tartrate (Levalbuterol Tartrate Hfa), 2 PUFF PO BID Levothyroxine Sodium (Synthroid), 25 MCG PO DAILY Loratadine (Claritin), 10 MG PO DAILY Mometasone Furoate-Formoterol (Dulera 200/5 Mcg), 2 PUFFS INH BID Montelukast Sod (Montelukast Sodium), 10 MG PO QPM Multivitamins/Minerals (Mvi With Minerals), 1 TAB PO DAILY Nystatin (Nystatin), 5 ML PO QID Omeprazole (Prilosec), 40 MG PO DAILY Tiotropium [place] (Spiriva Handihaler), 1 CAP INH DAILY Scheduled PRN Diclofenac Sodium (Topical) (Diclofenac Sodium), 1 DOSE TOP PRN PRN for PRN Epinephrine (Epipen), 0.3 MG IM UD PRN for ALLERGIC REACTION Lorazepam (Ativan), 0.5 MG PO TID PRN for Anxiety [Xopenex], 1 DOSE INH Q4-6HRS PRN for SOB/Wheezing Physical Examination Skin: warm/dry, no rash Eyes: normal inspection, EOMI, sclerae normal ENT: + pertinent finding (perforation right ear, fluid left ear behind TM) Neck: supple, no adenopathy, trachea midline Respiratory/Chest: no respiratory distress Cardiovascular: regular rate, rhythm, no edema, no murmur Abdomen / GI: normal bowel sounds, non tender Back: normal inspection Extremities: normal inspection, normal range of motion Neurologic/Psych: + pertinent finding (mixed hearing loss R > L) Diagnosis Perforation right ear with mastoiditis on CT scan, COME left ear Plan of Treatment tympanomastoidectomy right ear, PE tube left ear
[~2017-03-11] VITALS: Ht 188 cm; Wt 73.0 kg
[2017-03-11] VITALS (10 sets, daily range): BP systolic 109–126; BP diastolic 68–77; PULSE 59–92; TEMP 36.5–36.9; O2SAT 92–97; Ht 188 cm; Wt 73.0 kg
[~2017-03-11 05:25] MED LIST changes: -TRAMTAB5 PO
[2017-03-11] MEDS ORDERED: LACTATED RINGER'S 1000ML 1,000 ML IV SCH (06:00)
[2017-03-11] MEDS ORDERED: PROPOFOL IV EMULSION 10 MG/ML 20 ML VIAL IV ONE (06:42)
[2017-03-11] MEDS ORDERED: MIDAZOLAM HCL 1 MG/ML 2ML VIAL ONE (06:42)
[2017-03-11] MEDS ORDERED: ONDANSETRON INJ 2 MG/ML 2 ML VIAL ONE ×2 (06:42→09:44)
[2017-03-11] MEDS ORDERED: DEXAMETHASONE SOD INJ 4 MG/ML VIAL ONE (06:42)
[2017-03-11] MEDS ORDERED: LIDOCAINE HCL 2% 2 ML VIAL (20MG/ML) ONE (06:42)
[2017-03-11] MEDS ORDERED: FENTANYL CITRATE INJ 50 MCG/1 ML 2 ML VIAL ONE ×2 (06:42→09:02)
[2017-03-11] MEDS ORDERED: GLYCOPYRROLATE INJ 0.2 MG/ML VIAL ONE ×2 (06:42→09:44)
[2017-03-11] MEDS ORDERED: ROCURONIUM BROMIDE 10 MG/ML 5 ML VIAL ONE ×2 (06:42→07:48)
[2017-03-11] MEDS ORDERED: NEOSTIGMINE METHYLSULFATE 5 MG/5 ML SYR ONE (06:42)
--- NOTE | 2017-03-11 06:58 | History & Physical Bridge Note ---
H&P Re-Evaluation Bridge Note: I have examined the patient, reviewed the History & Physical and in the interval since the performance of the History & Physical I have noted the following changes of clinical significance: No changes noted
[2017-03-11] MEDS ORDERED: ATROPINE SULFATE 0.1 MG/ML 5ML SYR IV PRN (07:00)
[2017-03-11] MEDS ORDERED: ONDANSETRON INJ 2 MG/ML 2 ML VIAL IV PRN ×2 (07:00→10:30)
[2017-03-11] MEDS ORDERED: FENTANYL CITRATE INJ 50 MCG/1 ML 2 ML VIAL IV PRN (07:00)
[2017-03-11] MEDS ORDERED: EpHEDrine SULFATE INJ 50 MG/ML AMP IV PRN (07:00)
[2017-03-11] MEDS ORDERED: NURSING VERBAL MED ORDER ONE ×3 (07:10→19:30)
[2017-03-11] MEDS ORDERED: GELATIN SPONGE 12-7MM ONE (07:11)
[2017-03-11] MEDS ORDERED: NEOMYC/POLYMYX/BACITR/HC OP OI 3.5 GM TUBE ONE (07:12)
[2017-03-11] MEDS ORDERED: EpINEphrine HCL INJ 1 MG/ML 5ML SYRINGE ONE (07:13)
[2017-03-11] MEDS ORDERED: NEOMYCIN/POLYMYX/HYDROCORT OT SUSP 10 ML BTL ONE (07:13)
[2017-03-11] MEDS ORDERED: CEFAZOLIN IV 2,000 MG/60 ML D5W IV ONE (07:13)
[2017-03-11] MEDS ORDERED: LIDO 2%/EPINEPHRINE 1:100000 20 ML VIAL INFIL ONE (07:17)
[2017-03-11] MEDS ORDERED: METOPROLOL TARTRATE 1 MG/ML VIAL ONE (10:13)
[2017-03-11] MEDS: SODIUM CHLORIDE 0.9% 1000ML 1,000 ML IV SCH ×2 (10:28→23:48)
[2017-03-11] MEDS ORDERED: ACETAMINOPHEN 325 MG TAB PO PRN (10:30)
--- NOTE | 2017-03-11 10:39 | [facility] Operative Report ---
Operative Report Operative Date Mar 11, 2017. Pre-Operative Diagnosis Perforation right ear status post tympanoplasty x 2, also chronic otitis media left ear with hearing loss Post-Operative Diagnosis Perforation right ear status post tympanoplasty x 2, also chronic otitis media left ear with hearing loss Procedure(s) Performed Right tympanomastoidectomy and insertion of pressure equalizer tube left ear Surgeon Dr Cali Battery Mechanic Surgeon(s) None Estimated Blood Loss 30cc Findings Granulation tissue in the right mastoid and fluid in the left middle ear Specimens None as per surgeon Drains none Anesthesia Gen. endotracheal Complication(s) None Disposition Recovery Room / PACU Indications 41-year-old male who had 2 previous tympanoplasties for a recurrent perforation of the right tympanic membrane. He has a near total perforation of right tympanic membrane. CT scan documented opacification of the right mastoid. Description of Procedure The patient was brought to operating room placed in the supine position. He was prepped with Betadine scrub and paint and draped in the usual sterile manner. Injection of 2% Xylocaine with 1-100,000 strength epinephrine was used in the postauricular area and in the canal. The right canal incision was made at 6 and 12:00 using the Llano blade and connected across the posterior canal wall using the Llano blade. No meatal flaps were elevated using the round knife the triangular knife and the Spann needle, entering the middle ear space and the hypotympanum. Elevation was continued superiorly encountering and preserving the chorda tympani nerve. The incus was encountered posterior superiorly and appeared to be intact with the stapes. At the sponges were placed and attention was turned to the postauricular area. The postauricular incision was made using the #15 blade carried down through the skin and subcutaneous layer, controlling bleeders with the needle Bovie, and incising the periosteum in the shape of a reverse 7 with the 15 blade. The periosteum was elevated using the [place] and the Columbia elevators the canal skin was also elevated using the Columbia elevator and the round knife. The previously placed at the balls were encountered and removed. The middle ears space was further explored again noting the near-total perforation and ossicular continuity which appeared to be intact. At this point mastoidectomy was performed using the Xomed drill opening up the mastoid air cells, delineating the sinodural angle, delineating the tegmen, going through the Alfred septum into the mastoid antrum , noting the incus, and opening up the facial recess, exposing the bone over the lateral semicircular canal. In this manner the entire mastoid cavity was cleaned out of granulation tissue. There was a small area of dural defect posterior superiorly which was also noted on the CT scan, and this area was not touched and packed later with bone paul. At this point the middle ears space was filled with pieces of dry Gelfoam as a platform filling the eustachian tube orifice and filling the middle ear space. The previously harvested periosteal graft along with some scar tissue, which had been flattened and pressed in the fascia press, was placed in an underlay manner on top of the Gelfoam bed and underneath the tympanomeatal flap. The graft was adjusted to cover all edges of the perforation tucking it underneath the annulus anteriorly, inferiorly, and superiorly. Some smaller pieces of Gelfoam was placed, the tympanomeatal flap and the graft. The canal was then filled with pieces of Gelfoam dipped in Cortisporin. The tympanomeatal flap was reflected back in its original position. The auricle was also reflected back in its original position tucking the skin flap onto the posterior canal wall and packing this into position using Gelfoam and also using Cortisporin ointment. The periosteal incision was closed with a continuous 4-0 Vicryl suture. Subcutaneous sutures of 4-0 Vicryl were placed. The skin was closed with a continuous 4-0 nylon suture. A Glacier dressing was placed over the right mastoid. The left ear was visualized and cleaned of cerumen myringotomy was made inferiorly, fluid was evacuated from the middle ear space, and a silver oxide impregnated tube was placed in the tympanic membrane. The patient tolerated procedure well was taken recovery are in satisfactory condition. I attest to the content of the Intraoperative Record and any orders documented therein. Any exceptions are noted below.
[2017-03-11] MEDS ORDERED: METOCLOPRAMIDE HCL INJ 5 MG/ML 2 ML VIAL ONE (10:49)
[2017-03-11] MEDS ORDERED: LORAZEPAM 0.5 MG TAB PO PRN (11:00)
--- NOTE | 2017-03-11 12:09 | Anesthesiology Progress Note ---
Anesthesia Post Op Note Date & Time Mar 11, 2017 at 12:09 Vital Signs Pain Intensity: 4 Vital Signs Past 12 Hours Date Time Temp Pulse Resp B/P (MAP) Pulse Ox O2 Delivery O2 Flow Rate FiO2 03/11/17 11:45 84 16 111/76 92 Nasal Cannula 2 03/11/17 11:30 36.4 70 16 96/61 96 Nasal Cannula 2 03/11/17 11:15 36.4 68 16 97/59 96 Nasal Cannula 2 03/11/17 11:05 36.4 63 16 95/57 95 Nasal Cannula 2 03/11/17 10:55 67 16 109/74 94 Nasal Cannula 2 03/11/17 10:45 72 16 116/74 97 Oxymask 10 03/11/17 10:35 69 16 110/73 98 Oxymask 10 03/11/17 10:28 36.6 85 16 111/77 95 Oxymask 10 03/11/17 05:52 36.9 92 20 117/74 (88) 97 Room Air Notes Mental Status: alert / awake / arousable, participated in evaluation Pt Amnestic to Procedure: Yes Nausea / Vomiting: adequately controlled Pain: adequately controlled Airway Patency, RR, SpO2: stable & adequate BP & HR: stable & adequate Hydration State: stable & adequate Anesthetic Complications: no major complications apparent
[2017-03-11] MEDS ORDERED: IV FLUIDS COMPLETED PRN (12:30)
[2017-03-11] MEDS: CEFAZOLIN IV 1,000 MG in DEXTROSE 5% 50ML 50 ML IV SCH (15:49)
[2017-03-11] MEDS: TRAMADOL/ACETAMINOPHEN 37.5/325MG TAB PO PRN ×2 (15:49→20:50)
[2017-03-11] MEDS: LEValbuterol HFA 15GM INHALER INH SCH (20:52)
[2017-03-11] MEDS ORDERED: DILTIAZEM HCL 60 MG TAB PO SCH (21:00)
[2017-03-11] MEDS ORDERED: MONTELUKAST SOD 10 MG TAB PO SCH (21:00)
[2017-03-11] MEDS: BUDESONIDE 90 MCG INH INH SCH (22:57)
[2017-03-12] MEDS: CEFAZOLIN IV 1,000 MG in DEXTROSE 5% 50ML 50 ML IV SCH (00:07)
[2017-03-12 00:30] VITALS: O2SAT 93
[2017-03-12 03:26] VITALS: BP 109/67; PULSE 82; TEMP 36.9; O2SAT 96
[2017-03-12] MEDS ORDERED: LEVOTHYROXINE 25 MCG TAB PO SCH (06:00)
[2017-03-12] MEDS: TRAMADOL/ACETAMINOPHEN 37.5/325MG TAB PO PRN ×2 (06:40→12:44)
[2017-03-12 07:39] VITALS: BP 126/70; PULSE 84; TEMP 36.9; O2SAT 94
[2017-03-12] MEDS: BUDESONIDE 90 MCG INH INH SCH (08:39)
[2017-03-12] MEDS: LEValbuterol HFA 15GM INHALER INH SCH (08:41)
[2017-03-12] MEDS ORDERED: TIOTROPIUM BROMIDE 5 PUFF/90 MCG INH INH SCH (09:00)
[2017-03-12] MEDS ORDERED: DILTIAZEM HCL 60 MG TAB PO SCH (09:00)
[2017-03-12] MEDS ORDERED: BUDESONIDE AQ (RHINOCORT AQ) NASAL SPRAY 32 MCG NAE SCH (09:00)
[2017-03-12] MEDS ORDERED: TRAMTAB5 PO (09:26)
--- NOTE | 2017-03-12 09:28 | Discharge Instructions-SurgCtr ---
Discharge Instructions Date of Service Mar 12, 2017. Visit Reason for Visit: Chronic Otitis Media Discharge Discharge Diagnosis / Problem: same Discharge Goals Goal(s): Improve disease control Activity Recommendations Activity Limitations: per Instructions/Follow-up section Anesthesia . Post Anesthesia Instructions: If you have had General Anesthesia or IV Sedation: * Do not drive today. * Resume driving when surgeon permits. * Do not make important decisions or sign legal documents today. * Call surgeon for: 1. Temperature elevations greater than 101 degrees F. 2. Uncontrollable pain. 3. Excessive bleeding. 4. Persistent nausea and vomiting. 5. Medication intolerance (nausea, vomiting or rash). * For nausea and vomiting use only clear liquids such as: tea, soda, bouillon until nausea subsides, then gradually increase diet as tolerated. * If you have any concerns or questions, call your surgeon's office. If physician is unavailable and it is an emergency, call 911 or go to the nearest emergency room. . Instructions / Follow-Up Instructions / Follow-Up ACTIVITY RECOMMENDATIONS: No limitations OVER THE COUNTER MEDICATIONS: Continue any other previous medications unless otherwise indicated by your surgeon. * You may use Tylenol for mild pain as per bottle instructions. SPECIAL CARE INSTRUCTIONS: * Keep operative ear dry. * Change cotton balls 4 times per day. Leave packing in ear. * Sneeze with your mouth open. * Do not blow your nose. Sniff back instead. * Please call with any increasing pain, increasing drainage, active bleeding, redness and/or swelling, or any concerns. Dr. Cali's office number is . FOLLOW UP VISIT: If not already scheduled, please call to schedule follow-up appointment with Dr. Cali. Diet Recommendations Home Diet: no limitations Procedures Procedures Performed: Right tympanomastoidectomy and insertion of pressure equalizer tube left ear Pending Studies Studies pending at discharge: no Medical Emergencies . Who to Call and When: Medical Emergencies: If at any time you feel your situation is an emergency, please call 911 immediately. . Non-Emergent Contact Non-Emergency issues call your: Primary Care Provider . . "Provider Documentation" section prepared by Juanita Cali. . [place] Drug Monitoring Program Search Results: no issues identified
--- NOTE | 2017-03-12 09:36 | PROGRESS NOTE ---
DATE: 03/12/2017 DATE: 03/12/2017 SUBJECTIVE: Postop day 1. Feels well. No complaints. Drainage has diminished. OBJECTIVE: There is minimal drainage from the left ear. IMPRESSION: Status post tympanomastoidectomy. PLAN: For discharge.
--- NOTE | 2017-03-12 09:41 | DISCHARGE SUMMARY ---
DATE OF DISCHARGE: 03/12/2017 DIAGNOSIS: Chronic otitis media with mastoiditis of the right ear and chronic otitis media with effusion of the left ear. DISCHARGE DIAGNOSIS: Same. PROCEDURE: Tympanomastoidectomy of the right ear, intact wall and now PE tube insertion of the left ear. HISTORY OF PRESENT ILLNESS: A 41-year-old male with chronic otitis media of the right ear found to have opacified mastoid after tympanoplasty x2 at [facility] with fluid effusion of the left ear also. HOSPITAL COURSE: The patient was taken to the operating room on Tuesday. He underwent right tympanomastoidectomy, intact wall. He also had PE tube insertion of the left ear. Postoperatively, the patient did well with some bloody drainage from the right ear which diminished by Tuesday morning. He was able to hear out of the left ear and had minimal pain and minimal nausea. ASSESSMENT: Status post tympanomastoidectomy of the right ear and PE tube of the left ear. PLAN: Is for discharge home and follow up in my office in 9 days.
[2017-03-12 11:52] VITALS: BP 103/70; PULSE 91; O2SAT 95
[2017-03-12 12:56] VITALS: BP 103/70; PULSE 91; TEMP 36.9; O2SAT 95
== END 2017-03-12 13:30 | disposition home or self-care (01) ==
LOC: C.ACU 05:25 → C.MSN 10:46 → ENRESERV 12:16
PROVIDERS: ADMIT Otolaryngology; ATTEND Otolaryngology
DX: H72.91 Unspecified perforation of tympanic membrane, right ear (principal); H66.92 Otitis media, unspecified, left ear

== ENCOUNTER → 2017-06-21 | Outpatient (CLI) | payer OTHER ==
[~2017-06-21] MED LIST changes: +AZIT-57 PO; +BUDE1SUS8 NAE; +LEVA1.255 INH; +LEVA45AE INH; +PRD20 PO; +TRAMTAB5 PO
== END | disposition home or self-care (01) ==
LOC: C.LAB1850 14:25
PROVIDERS: ATTEND Internal Medicine Rheumatology
DX: M81.0 Age-related osteoporosis without current pathological fracture (principal); E55.9 Vitamin D deficiency, unspecified; E61.8 Deficiency of other specified nutrient elements

== ENCOUNTER 2017-06-23 12:09 | Observation (INO) | payer OTHER ==
[~2017-06-23] VITALS: Ht 190.5 cm; Wt 71.5 kg
[~2017-06-23 12:09] MED LIST changes: -AZIT-57 PO; -BUDE1SUS8 NAE; -LEVA1.255 INH; -LEVA45AE INH; -PRD20 PO
[2017-06-23] MEDS ORDERED: ALBUT/IPRATROP 3MG/0.5MG NEB 3 ML VIAL INH STA ×2 (13:09→14:52)
[2017-06-23] MEDS ORDERED: METHYLPREDNISOLONE 125 MG VIAL IV STA (13:09)
[2017-06-23] MEDS ORDERED: BUDE1SUS8 NAE (13:15)
[2017-06-23] MEDS ORDERED: LEVA1.255 INH (13:19)
[2017-06-23] MEDS ORDERED: LEVA45AE INH (13:20)
[2017-06-23 13:40] LABS: URINE APPEARANCE CLEAR (CLEAR); URINE BILIRUBIN NEG (NEG); URINE COLOR YELLOW; URINE NITRITE NEG (NEG); URINE SPECIFIC GRAVITY 1.013 (1.000-1.030); UROBILINOGEN NEG (NEG)
[2017-06-23 13:41] LABS: AST/SGOT 18 U/L (15-37); BLOOD UREA NITROGEN 14 mg/dl (7-18); CALCIUM 9.5 mg/dl (8.5-10.1); CARBON DIOXIDE 24 mmol/L (21-32); CHLORIDE 109 mmol/L (98-107); CREATININE 0.73 mg/dl (0.60-1.40); GLUCOSE 92 mg/dl (70-99); POTASSIUM 3.6 mmol/L (3.5-5.1); SODIUM 143 mmol/L (136-145)
[2017-06-23 13:46] LABS: ALB/GLOB RATIO 1.2 (0.9-2); ALKALINE PHOSPHATASE 55 U/L (45-117); ALT/SGPT 30 U/L (12-78); CKMB/CK RATIO 2.4 (0-3.0)
[2017-06-23 13:47] LABS: MANUAL MICROSCOPIC REQUIRED? NO; REVIEW REQ? NO
--- NOTE | 2017-06-23 13:52 | DIAGNOSTIC IMAGING REPORT ---
CHEST ONE VIEW PORTABLE HISTORY: 42 years-old Male EVALUATE RESPIRATORY DISTRESS.DYSPNEA acute respiratory distress COMPARISON: Chest radiograph 10/19/2016 TECHNIQUE: Portable upright AP view of the chest FINDINGS: Cardiac silhouette is moderately enlarged, unchanged. Mild biapical pleural-parenchymal scarring is noted. There is no pneumothorax or pleural effusion. There is improved aeration of the lung bases from comparison study. Areas of interstitial coarsening of the lung bases are again seen with hazy left basilar opacities noted. Bones of the chest are grossly intact. IMPRESSION: 1. Cardiomegaly without overt pulmonary edema. 2. Subtle hazy left basilar opacities suggest atelectasis/scarring with pneumonia thought to be less likely. The above report was generated using voice recognition software. It may contain grammatical, syntax or spelling errors. Electronically signed by: Loco Moody M.D. 06/23/2017 1:50 PM Dictated Date/Time: 06/23/2017 1:47 PM
[2017-06-23 14:35] LABS: BASO % 0.3 %; BASO ABS # 0.01 K/uL (0-0.2); COMPLETE YES; EOS % 1.3 %; IG% 0.5 %; LYMPH % 18.1 %; LYMPH ABS # 0.69 K/uL (1.2-3.4); MEAN CELL VOLUME 95.7 fL (80-100); MEAN CORPUSCULAR HEMOGLOBIN 31.5 pg (25-34); MEAN PLATELET VOLUME 10.8 fL (7.4-10.4); MONO % 11.5 %; NEUT % 68.3 %; PLATELET COUNT 135 K/uL (130-400); WHITE BLOOD COUNT 3.82 K/uL (4.8-10.8)
[2017-06-23] MEDS ORDERED: OPTIRAY 320 IV PRN (15:15)
[2017-06-23] MEDS ORDERED: LEVALBUTEROL 1.25MG/3ML NEB INH STA (15:43)
--- NOTE | 2017-06-23 15:47 | DIAGNOSTIC IMAGING REPORT ---
CT ANGIOGRAM OF THE CHEST CLINICAL HISTORY: Shortness of breath. History of pulmonary embolism. COMPARISON STUDY: 08/20/2016, 07/16/2016 TECHNIQUE: Following the IV administration of 116 mL of Optiray-320, CT angiogram of the thorax was performed from the thoracic inlet to the lung bases utilizing the pulmonary embolus protocol. Images are reviewed in the axial, sagittal, and coronal planes. IV contrast was administered without complication. MIP imaging was performed. A dose lowering technique was utilized adhering to the principles of ALARA. CT DOSE: 215.35 mGy.cm FINDINGS: No pathologically enlarged axillary mediastinal or hilar lymph nodes were visualized. There was no evidence of thoracic aortic dilatation. There were no pulmonary artery filling defects to indicate acute pulmonary embolism. There is persistent dilatation of the pulmonary trunk. No pleural effusions are visualized. There are dependent airspace opacities likely atelectatic. There are stable wispy opacities within the right middle lobe, likely representing atelectasis/scarring. There is a mild pectus deformity. There is an old T8 compression deformity. IMPRESSION: 1. No evidence of acute pulmonary embolism 2. Dependent lower lobe airspace opacities likely atelectatic 3. Stable mild dilatation the primary trunk 4. Pectus deformity Electronically signed by: Venu Jackman M.D. 06/23/2017 3:46 PM Dictated Date/Time: 06/23/2017 3:39 PM
[2017-06-23 15:57] VITALS: PULSE 74; O2SAT 99
[2017-06-23] MEDS ORDERED: CEFTRIAXONE SOD INJ 1 GM in DEXTROSE 5% ADD-VANTAGE 50ML 50 ML IV SCH (17:45)
[2017-06-23] MEDS ORDERED: ONDANSETRON INJ 2 MG/ML 2 ML VIAL IV PRN (17:45)
[2017-06-23] MEDS ORDERED: ALUMINUM/MAGNESIUM/SIMETH (MAALOX MAX) 30 ML UDC PO PRN (17:45)
[2017-06-23] MEDS ORDERED: LORAZEPAM 0.5 MG TAB PO PRN (17:45)
[2017-06-23] MEDS ORDERED: ACETAMINOPHEN 325 MG TAB PO PRN (17:45)
[2017-06-23] MEDS ORDERED: POLYETHYLENE (MIRALAX) 17 GM PACK PO PRN (17:45)
[2017-06-23] MEDS ORDERED: AZITHROMYCIN 250 MG TAB PO ONE (17:45)
--- NOTE | 2017-06-23 17:52 | EMERGENCY ROOM VISIT NOTE ---
History Report prepared by Baldev: Sussy France Under the Supervision of: Dr. Juan Arnold M.D. First contact with patient: 13:04 Chief Complaint: RESPIRATORY PROBLEMS Stated Complaint: POOR BREATHING Nursing Triage Summary: Was sent from Dr. Unger office. "He listened to my lungs and was told I need some IV medicine." SOB. History of asthma. Denies productive cough. Pt taking short shallow breaths in triage. History of Present Illness The patient is a 42 year old male who presents to the Emergency Room with complaints of persistent congestion and difficulty breathing prior to arrival. He currently rates his discomfort as an 8/10 in severity. Per the patient's , the patient has had increased congestion and difficulty breathing which is worse than his previous episodes. She states that the patient went to Dr. 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 The patient's notes that the patient has a history of asthma, fungal lung disease, concave chest, back deformity, pulmonary embolisms status post surgery, and mastoidectomy. She states that the patient was on Warfarin and stopped his medication in January. The patient's denies the patient being on any recent blood thinners. She states that the patient has had many sick contacts at home. Pt denies LOC, headache, fevers, chills, diaphoresis, visual changes, neck pain, chest pain, nausea, vomiting, abdominal pain, back pain, melena, hematochezia, urinary symptoms, numbness, weakness, lymphadenopathy, rash, or other complaints. Source of History: patient, spouse/significant other () Onset: prior to arrival Position: other (global) Symptom Intensity: 8/10 Quality: other (congestion and difficulty breathing) Timing: other (persistent) Review of Systems See HPI for pertinent positives and negatives. A total of ten systems were reviewed and were otherwise negative. Past Medical & Surgical Medical Problems: (1) Acute dyspnea (2) Aspiration pneumonia (3) Asthma (4) Chest pain (5) Dizziness (6) Hypoxia (7) Mastoiditis, chronic (8) Pneumonia (9) Pneumonia of both lower lobes (10) Right otitis media Family History Diabetes mellitus FH: cancer Hypertension Social History Smoking Status: Never Smoker Alcohol Use: none Drug Use: none Marital Status: Housing Status: lives with family Occupation Status: retired Current/Historical Medications Scheduled Ascorbic Acid (Vitamin C), 1,000 MG PO DAILY Budesonide (Inhalation) (Pulmicort Flexhaler), 2 PUFFS INH BID Budesonide (Nasal) (Rhinocort Allergy), 2 SPRAYS SIDNEY DAILY Calcium/Vitamin D (Os-Tommy 500 Plus D), 600 MG PO BID Cholecalciferol (Vitamin D3), 2,000 INTER.UNIT PO DAILY Denosumab (Prolia), 1 DOSE INJ UD Diltiazem Hcl (Cardizem), 60 MG PO DAILY Fish Oil (Ettrick-3), 1 CAP PO DAILY Levothyroxine Sodium (Synthroid), 25 MCG PO DAILY Loratadine (Claritin), 10 MG PO DAILY Mometasone Furoate-Formoterol (Dulera 200/5 Mcg), 2 PUFFS INH BID Montelukast Sod (Montelukast Sodium), 10 MG PO QPM Multivitamins/Minerals (Mvi With Minerals), 1 TAB PO DAILY Omeprazole (Prilosec), 40 MG PO DAILY Tiotropium Clubb (Spiriva Handihaler), 1 CAP INH DAILY Scheduled PRN Diclofenac Sodium (Topical) (Diclofenac Sodium), 1 DOSE TOP PRN PRN for PRN Levalbuterol Hcl (Levalbuterol), 1 AMP INH Q4H PRN for SOB/Wheezing Levalbuterol Tartrate (Levalbuterol Tartrate Hfa), 2 PUFFS INH Q4H PRN for SOB/ Wheezing Lorazepam (Ativan), 0.5 MG PO TID PRN for Anxiety Allergies Coded Allergies: Gluten (Verified Allergy, Unknown, patient preference-gluten free, ) Ciprofloxacin (Verified Adverse Reaction, Intermediate, issue with legs , 06/23/17) Oxycodone (Verified Adverse Reaction, Mild, GI upset , 06/23/17) Physical Exam Vital Signs Date Time Temp Pulse Resp B/P (MAP) Pulse Ox O2 Delivery O2 Flow Rate FiO2 06/23/17 17:30 76 30 114/73 98 Room Air 06/23/17 16:54 75 06/23/17 16:30 70 22 117/70 99 Room Air 06/23/17 16:11 68 30 107/77 99 Room Air 06/23/17 15:57 74 20 99 Room Air 06/23/17 14:48 72 30 113/64 97 Room Air 06/23/17 13:32 57 18 119/71 100 Nebulizer 06/23/17 12:26 99 Room Air 06/23/17 12:21 64 06/23/17 12:20 99 Room Air 06/23/17 12:11 36.4 93 36 130/78 96 Room Air Physical Exam GENERAL: Awake, alert, dyspneic-appearing, in no distress HENT: Normocephalic, atraumatic. Oropharynx unremarkable. EYES: Normal conjunctiva. Sclera non-icteric. NECK: Supple. No nuchal rigidity. FROM. No JVD. RESPIRATORY: Tachypnea present. Mildly dyspneic, diminished breath sounds, but equal bilaterally. CARDIAC: Regular rate, normal rhythm. Extremities warm and well perfused. Pulses equal. ABDOMEN: Soft, non-distended. No tenderness to palpation. No rebound or guarding. No masses. RECTAL: Deferred. MUSCULOSKELETAL: Chest examination reveals no tenderness but pectus deformity. The back is symmetrical on inspection without obvious abnormality. There is no CVA tenderness to palpation. No joint edema. LOWER EXTREMITIES: Calves are equal size bilaterally and non-tender. No edema. No discoloration. NEURO: Normal sensorium. No sensory or motor deficits noted. SKIN: No rash or jaundice noted. Medical Decision & Procedures ER Provider Diagnostic Interpretation: X-ray: Per my interpretation, radiologist review. CHEST ONE VIEW PORTABLE HISTORY: 42 years-old Male EVALUATE RESPIRATORY DISTRESS.DYSPNEA acute respiratory distress COMPARISON: Chest radiograph 10/19/2016 TECHNIQUE: Portable upright AP view of the chest FINDINGS: Cardiac silhouette is moderately enlarged, unchanged. Mild biapical pleural-parenchymal scarring is noted. There is no pneumothorax or pleural effusion. There is improved aeration of the lung bases from comparison study. Areas of interstitial coarsening of the lung bases are again seen with hazy left basilar opacities noted. Bones of the chest are grossly intact. IMPRESSION: 1. Cardiomegaly without overt pulmonary edema. 2. Subtle hazy left basilar opacities suggest atelectasis/scarring with pneumonia thought to be less likely. The above report was generated using voice recognition software. It may contain grammatical, syntax or spelling errors. Electronically signed by: Loco Moody M.D. 06/23/2017 1:50 PM Dictated Date/Time: 06/23/2017 1:[address] ANGIOGRAM OF THE CHEST CLINICAL HISTORY: Shortness of breath. History of pulmonary embolism. COMPARISON STUDY: 08/20/2016, 07/16/2016 TECHNIQUE: Following the IV administration of 116 mL of Optiray-320, CT angiogram of the thorax was performed from the thoracic inlet to the lung bases utilizing the pulmonary embolus protocol. Images are reviewed in the axial, sagittal, and coronal planes. IV contrast was administered without complication. MIP imaging was performed. A dose lowering technique was utilized adhering to the principles of ALARA. CT DOSE: 215.35 mGy.cm FINDINGS: No pathologically enlarged axillary mediastinal or hilar lymph nodes were visualized. There was no evidence of thoracic aortic dilatation. There were no pulmonary artery filling defects to indicate acute pulmonary embolism. There is persistent dilatation of the pulmonary trunk. No pleural effusions are visualized. There are dependent airspace opacities likely atelectatic. There are stable wispy opacities within the right middle lobe, likely representing atelectasis/scarring. There is a mild pectus deformity. There is an old T8 compression deformity. IMPRESSION: 1. No evidence of acute pulmonary embolism 2. Dependent lower lobe airspace opacities likely atelectatic 3. Stable mild dilatation the primary trunk 4. Pectus deformity Electronically signed by: Venu Jackman M.D. 06/23/2017 3:46 PM Dictated Date/Time: 06/23/2017 3:39 PM Laboratory Results 06/23/17 12:25 Red Blood Count 4.60, Mean Corpuscular Volume 95.7, Mean Corpuscular Hemoglobin 31.5, Mean Corpuscular Hemoglobin Concent 33.0, Mean Platelet Volume 10.8, Neutrophils (%) (Auto) 68.3, Lymphocytes (%) (Auto) 18.1, Monocytes (%) (Auto) 11.5, Eosinophils (%) (Auto) 1.3, Basophils (%) (Auto) 0.3, Neutrophils # (Auto ) 2.61, Lymphocytes # (Auto) 0.69, Monocytes # (Auto) 0.44, Eosinophils # (Auto ) 0.05, Basophils # (Auto) 0.01 06/23/17 12:25 Test 06/23/17 12:25 06/23/17 13:28 White Blood Count 3.82 K/uL (4.8-10.8) Red Blood Count 4.60 M/uL (4.7-6.1) Hemoglobin 14.5 g/dL (14.0-18.0) Hematocrit 44.0 % (42-52) Mean Corpuscular Volume 95.7 fL (80-100) Mean Corpuscular Hemoglobin 31.5 pg (25-34) Mean Corpuscular Hemoglobin Concent 33.0 g/dl (32-36) Platelet Count 135 K/uL (130-400) Mean Platelet Volume 10.8 fL (7.4-10.4) Neutrophils (%) (Auto) 68.3 % Lymphocytes (%) (Auto) 18.1 % Monocytes (%) (Auto) 11.5 % Eosinophils (%) (Auto) 1.3 % Basophils (%) (Auto) 0.3 % Neutrophils # (Auto) 2.61 K/uL (1.4-6.5) Lymphocytes # (Auto) 0.69 K/uL (1.2-3.4) Monocytes # (Auto) 0.44 K/uL (0.11-0.59) Eosinophils # (Auto) 0.05 K/uL (0-0.5) Basophils # (Auto) 0.01 K/uL (0-0.2) RDW Standard Deviation 54.5 fL (36.4-46.3) RDW Coefficient of Variation 15.5 % (11.5-14.5) Immature Granulocyte % (Auto) 0.5 % Immature Granulocyte # (Auto) 0.02 K/uL (0.00-0.02) Anion Gap 10.0 mmol/L (3-11) Est Creatinine Clear Calc Drug Dose 130.3 ml/min Estimated GFR () 131.7 Estimated GFR (Non- 113.6 BUN/Creatinine Ratio 19.0 (10-20) Calcium Level 9.5 mg/dl (8.5-10.1) Total Bilirubin 0.9 mg/dl (0.2-1) Aspartate Amino Transf (AST/SGOT) 18 U/L (15-37) Alanine Aminotransferase (ALT/SGPT) 30 U/L (12-78) Alkaline Phosphatase 55 U/L (45-117) Total Creatine Kinase 49 U/L (39-308) Creatine Kinase MB 1.2 ng/ml (0.5-3.6) Creatine Kinase MB Ratio 2.4 (0-3.0) Troponin I < 0.015 ng/ml (0-0.045) Total Protein 7.7 gm/dl (6.4-8.2) Albumin 4.2 gm/dl (3.4-5.0) Globulin 3.5 gm/dl (2.5-4.0) Albumin/Globulin Ratio 1.2 (0.9-2) Urine Color YELLOW Urine Appearance CLEAR (CLEAR) Urine pH 6.0 (4.5-7.5) Urine Specific [place] 1.013 (1.000-1.030) Urine Protein NEG (NEG) Urine Glucose (UA) NEG (NEG) Urine Ketones NEG (NEG) Urine Occult Blood NEG (NEG) Urine Nitrite NEG (NEG) Urine Bilirubin NEG (NEG) Urine Urobilinogen NEG (NEG) Urine Leukocyte Esterase NEG (NEG) Laboratory results reviewed by me Medications Administered Medications (Trade) Dose Ordered Sig/Dena Route Start Time Stop Time Status Last Admin Dose Admin Albuterol/ Ipratropium (Duoneb) 3 ml NOW STAT INH 06/23/17 13:09 06/23/17 13:11 DC 06/23/17 13:29 3 ML Methylprednisolone Sodium Succinate (Solu-Medrol IV) 125 mg NOW STAT IV 06/23/17 13:09 06/23/17 13:11 DC 06/23/17 13:29 125 MG Levalbuterol (Xopenex 1.25MG/ 3ML Neb) 1.25 mg NOW STAT INH 06/23/17 15:43 06/23/17 15:45 DC 06/23/17 15:56 1.25 MG ECG Indication: SOB/dyspnea Rate (beats per minute): 58 Rhythm: sinus bradycardia Findings: no acute ischemic change, no ectopy ED Course 1304: The patient was evaluated in room A2. A complete history and physical exam was performed. 1309: Ordered Solu-Medrol IV 125 mg IV, DuoNeb 3 ml INH. 1430: I spoke to Dr. Morrissey, Pulmonology at this time. He states that he wanted the patient have additional testing. He states that the patient can be discharged on steroids and antibiotics. 1448: I reevaluated the patient and he is resting comfortably. I discussed the exam findings with him. He will have a CT scan. 1452: Ordered DuoNeb 3 ml INH. Medical Decision Triage Nursing notes reviewed. The patient's presentation and history were concerning for SOB. Etiologies such as pneumonia, COPD, reactive airway disease, CHF, cardiac ischemia, pulmonary embolism, pneumothorax, musculoskeletal, infections, gastrointestinal, as well as others were entertained. The patient was evaluated. He was dyspneic-appearing. He states that he did not feel well and he could not catch his breath. He was given a DuoNeb and Solu -Medrol IV. A chest x-ray was performed as above. His blood work was unremarkable. ECG showed a sinus bradycardia at 58 bpm. There is no acute ischemic change or ectopy. The patient was reassessed and states he was not feeling well at all and he was having difficulty breathing. His vital signs are stable. He had requested a Xopenex nebulizer treatment. This was ordered. The patient also was sent for CT imaging of his chest to rule out pulmonary embolus and. No PE was found. Findings as above. On reassessment again the patient was still feeling ill. The exact etiology of his dyspnea is not obvious at this time. The patient did not feel comfortable going home and therefore the hospital service was consulted. The patient was evaluated in the Emergency Room for further management. Medication Reconcilliation Current Medication List: was personally reviewed by me Consults Time Called: 1428 Consulting Physician: Dr. Morrissey, Pulmonology Returned Call: [address] Morrissey, Pulmonology at this time. He states that he wanted the patient have additional testing. He states that the patient can be discharged on steroids and antibiotics. Additional Consults: Consulted Physician: Dr. Arnaud Ham Additional Comments: Will see the patient for further management. Impression Primary Impression: Acute dyspnea Scribe Attestation The scribe's documentation has been prepared under my direction and personally reviewed by me in its entirety. I confirm that the note above accurately reflects all work, treatment, procedures, and medical decision making performed by me. Departure Information Dispostion Being Evaluated By Hospitalist Barrington Poe M.D. (PCP) Patient Instructions My [facility]
--- NOTE | 2017-06-23 18:22 | History and Physical ---
History & Physical Date & Time of Service: Jun 23, 2017 at 18:14 Chief Complaint: Poor Breathing Primary Care Physician: Barrington Adorno M.D. History of Present Illness Patient presents to the ER after seeing his pulmonary medical doctor with complaints of being short of breath the patient has a history of a pectus excavatum deformity and does suffer some from restrictive lung disease the patient however has unusual breeding Mikki where he is speaking in short sentences but it almost gives a flavor of anxiety more so than a pulmonary process during these episodes were he's having difficulty speaking his oximeter is normal as well as his vital signs the patient's had an extensive workup in the ER showing a CTA without evidence of infiltrate or pulmonary embolism (he has a previous history of pulmonary embolism). 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 and is looking forward to traveling in the future Past Medical/Surgical History Medical Problems: (1) Aspiration pneumonia Status: Resolved (2) Asthma Status: Chronic (3) Mastoiditis, chronic Status: Resolved (4) Right otitis media Status: Resolved Family History Diabetes mellitus FH: cancer Hypertension Social History Smoking Status: Never Smoker Drug Use: none Marital Status: Housing status: lives with family Occupational Status: retired Multi-Drug Resistant Organisms History of MDRO: No Allergies Coded Allergies: Gluten (Verified Allergy, Unknown, patient preference-gluten free, ) Ciprofloxacin (Verified Adverse Reaction, Intermediate, issue with legs , 06/23/17) Oxycodone (Verified Adverse Reaction, Mild, GI upset , 06/23/17) Home Medications Scheduled Ascorbic Acid (Vitamin C), 1,000 MG PO DAILY Budesonide (Inhalation) (Pulmicort Flexhaler), 2 PUFFS INH BID Budesonide (Nasal) (Rhinocort Allergy), 2 SPRAYS SIDNEY DAILY Calcium/Vitamin D (Os-Tommy 500 Plus D), 600 MG PO BID Cholecalciferol (Vitamin D3), 2,000 INTER.UNIT PO DAILY Denosumab (Prolia), 1 DOSE INJ UD Diltiazem Hcl (Cardizem), 60 MG PO DAILY Fish Oil ([place]-3), 1 CAP PO DAILY Levothyroxine Sodium (Synthroid), 25 MCG PO DAILY Loratadine (Claritin), 10 MG PO DAILY Mometasone Furoate-Formoterol (Dulera 200/5 Mcg), 2 PUFFS INH BID Montelukast Sod (Montelukast Sodium), 10 MG PO QPM Multivitamins/Minerals (Mvi With Minerals), 1 TAB PO DAILY Omeprazole (Prilosec), 40 MG PO DAILY Tiotropium [place] (Spiriva Handihaler), 1 CAP INH DAILY Scheduled PRN Diclofenac Sodium (Topical) (Diclofenac Sodium), 1 DOSE TOP PRN PRN for PRN Levalbuterol Hcl (Levalbuterol), 1 AMP INH Q4H PRN for SOB/Wheezing Levalbuterol Tartrate (Levalbuterol Tartrate Hfa), 2 PUFFS INH Q4H PRN for SOB/ Wheezing Lorazepam (Ativan), 0.5 MG PO TID PRN for Anxiety Review of Systems ROS: well nourished well developed mild to moderate distress No double vision blurry vision No problems with speech or swallowing No palpitations, chest pain or pressure No Wheezing marked tachypnea speaking in short sentences No abdominal pain nausea vomiting diarrhea changes in appetite or weight No burning urine urine frequency or changes in color No focal joint pain or muscle pain No skin rashes or oral lesions No unusual bruising or bleeding No focused back pain or numbness or loss of strength No changes in memory or confusion denies anxiety Physical Exam Vital Signs Date Time Temp Pulse Resp B/P (MAP) Pulse Ox O2 Delivery O2 Flow Rate FiO2 06/23/17 17:30 76 30 114/73 98 Room Air 06/23/17 16:54 75 06/23/17 16:30 70 22 117/70 99 Room Air 06/23/17 16:11 68 30 107/77 99 Room Air 06/23/17 15:57 74 20 99 Room Air 06/23/17 14:48 72 30 113/64 97 Room Air 06/23/17 13:32 57 18 119/71 100 Nebulizer 06/23/17 12:26 99 Room Air 06/23/17 12:21 64 06/23/17 12:20 99 Room Air 06/23/17 12:11 36.4 93 36 130/78 96 Room Air General Appearance: WD/WN, + moderate distress Head: atraumatic, + pertinent finding (he has a smaller shaped head) Eyes: PERRL, EOMI Neck: supple, no JVD Respiratory/Chest: + respiratory distress, + decreased breath sounds, + accessory muscle use, + pertinent finding (no focal air loss wheezing or egophony) Cardiovascular: regular rate, rhythm, no murmur Abdomen/GI: normal bowel sounds, non tender, soft Back: no CVA tenderness, no muscle spasm Extremities/Musculoskelatal: no pedal edema, normal range of motion Neurologic/Psych: alert, oriented x 3, + pertinent finding (he appears anxious although denying it he was relieved when he found he has modest in the hospital) Diagnostics Laboratory Results Results Past 24 Hours Test 06/23/17 12:25 06/23/17 13:28 Range/Units White Blood Count 3.82 4.8-10.8 K/uL Red Blood Count 4.60 4.7-6.1 M/uL Hemoglobin 14.5 14.0-18.0 g/dL Hematocrit 44.0 42-52 % Mean Corpuscular Volume 95.7 80-100 fL Mean Corpuscular Hemoglobin 31.5 25-34 pg Mean Corpuscular Hemoglobin Concent 33.0 32-36 g/dl Platelet Count 135 130-400 K/uL Mean Platelet Volume 10.8 7.4-10.4 fL Neutrophils (%) (Auto) 68.3 % Lymphocytes (%) (Auto) 18.1 % Monocytes (%) (Auto) 11.5 % Eosinophils (%) (Auto) 1.3 % Basophils (%) (Auto) 0.3 % Neutrophils # (Auto) 2.61 1.4-6.5 K/uL Lymphocytes # (Auto) 0.69 1.2-3.4 K/uL Monocytes # (Auto) 0.44 0.11-0.59 K/uL Eosinophils # (Auto) 0.05 0-0.5 K/uL Basophils # (Auto) 0.01 0-0.2 K/uL RDW Standard Deviation 54.5 36.4-46.3 fL RDW Coefficient of Variation 15.5 11.5-14.5 % Immature Granulocyte % (Auto) 0.5 % Immature Granulocyte # (Auto) 0.02 0.00-0.02 K/uL Sodium Level 143 136-145 mmol/L Potassium Level 3.6 3.5-5.1 mmol/L Chloride Level 109 98-107 mmol/L Carbon Dioxide Level 24 21-32 mmol/L Anion Gap 10.0 3-11 mmol/L Blood Urea Nitrogen 14 7-18 mg/dl Creatinine 0.73 0.60-1.40 mg/dl Est Creatinine Clear Calc Drug Dose 130.3 ml/min Estimated GFR () 131.7 Estimated GFR (Non- 113.6 BUN/Creatinine Ratio 19.0 10-20 Random Glucose 92 70-99 mg/dl Calcium Level 9.5 8.5-10.1 mg/dl Total Bilirubin 0.9 0.2-1 mg/dl Aspartate Amino Transf (AST/SGOT) 18 15-37 U/L Alanine Aminotransferase (ALT/SGPT) 30 12-78 U/L Alkaline Phosphatase 55 45-117 U/L Total Creatine Kinase 49 39-308 U/L Creatine Kinase MB 1.2 0.5-3.6 ng/ml Creatine Kinase MB Ratio 2.4 0-3.0 Troponin I < 0.015 0-0.045 ng/ml Total Protein 7.7 6.4-8.2 gm/dl Albumin 4.2 3.4-5.0 gm/dl Globulin 3.5 2.5-4.0 gm/dl Albumin/Globulin Ratio 1.2 0.9-2 Urine Color YELLOW Urine Appearance CLEAR CLEAR Urine pH 6.0 4.5-7.5 Urine Specific [place] 1.013 1.000-1.030 Urine Protein NEG NEG Urine Glucose (UA) NEG NEG Urine Ketones NEG NEG Urine Occult Blood NEG NEG Urine Nitrite NEG NEG Urine Bilirubin NEG NEG Urine Urobilinogen NEG NEG Urine Leukocyte Esterase NEG NEG Diagnostic Radiology CT angiogram without infiltrates or pulmonary embolism Labs are reviewed and are normal including troponin CXR normal other (EKG showing sinus bradycardia right bundle branch block no acute artery syndrome changes) Impression Assessment and Plan 42-year-old male with restrictive lung disease due to pectus excavatum disorder presents with acute dyspnea of undetermined origin The patient be brought in as a acute reactive airway disease, the patient will be placed on steroids and nebulized medication continuing some of his home medication and have pulmonary evaluation. He does not have muffled heart tones nor low voltages to be consistent with possible restrictive pericarditis he does not appear overtly dehydrated but he does. Anxious. We'll have a trial of a low-dose of clonazepam and have him monitored closely for vital signs or clinical changes Indications this is an atypical bronchitis replace and oral azithromycin For his hypothyroidism he is on a very low dose of Synthroid 25 For his hypertension he is on a very low-dose of diltiazem 60 DVT prevention will be Lovenox VTE Prophylaxis VTE Risk Assessment Done? Y/N: Yes Risk Level: Moderate
[2017-06-23] MEDS ORDERED: CLONAZEPAM 0.5 MG TAB PO STA (19:37)
[2017-06-23 19:44] VITALS: Ht 190.5 cm; Wt 71.5 kg
[2017-06-23] MEDS ORDERED: AZITHROMYCIN 250 MG TAB ONE (19:54)
[2017-06-23] MEDS: FORMOTEROL FUMA NEBULIZER SOLN 20 MCG/2 ML VIAL INH SCH (20:00)
[2017-06-23] MEDS: DULERA~ORDER AWAITING ACTION SCH (20:00)
[2017-06-23] MEDS: IPRATROPIUM BROMIDE NEB SOLN 0.02% 2.5 ML VIAL INH SCH (20:17)
[2017-06-23] MEDS: LEVALBUTEROL 1.25MG/0.5ML NEB INH SCH (20:18)
[2017-06-23 20:25] LABS: PROTHROMBIN TIME (PATIENT) 10.7 SECONDS (9.0-12.0)
[2017-06-23 20:36] VITALS: BP 114/66; PULSE 83; TEMP 36.6; O2SAT 95
[2017-06-23] MEDS: SODIUM CHLORIDE 0.9% 1000ML 1,000 ML IV SCH (20:54)
[2017-06-23 21:00] VITALS: O2SAT 96
[2017-06-23] MEDS: MONTELUKAST SOD 10 MG TAB PO SCH (21:10)
[2017-06-23] MEDS: BUDESONIDE 90 MCG INH INH SCH (21:11)
[2017-06-24] VITALS (14 sets, daily range): BP systolic 98–118; BP diastolic 52–77; PULSE 74–101; TEMP 36.5–37; O2SAT 93–99
[2017-06-24] MEDS: DULERA~ORDER AWAITING ACTION SCH
[2017-06-24] MEDS: IPRATROPIUM BROMIDE NEB SOLN 0.02% 2.5 ML VIAL INH SCH ×4 (01:42→19:16)
[2017-06-24] MEDS: LEVALBUTEROL 1.25MG/0.5ML NEB INH SCH ×4 (01:43→19:16)
[2017-06-24] MEDS: SODIUM CHLORIDE 0.9% 1000ML 1,000 ML IV SCH ×2 (04:49→16:56)
[2017-06-24 05:36] LABS: HEMATOCRIT 41.5 % (42-52); MEAN CELL VOLUME 94.3 fL (80-100); MEAN CORPUSCULAR HEMOGLOBIN 31.1 pg (25-34); MEAN PLATELET VOLUME 10.1 fL (7.4-10.4); PLATELET COUNT 125 K/uL (130-400); WHITE BLOOD COUNT 5.29 K/uL (4.8-10.8)
[2017-06-24 06:09] LABS: BUN/CREATININE RATIO 19.1 (10-20); CALCIUM 8.7 mg/dl (8.5-10.1); CREATININE 0.62 mg/dl (0.60-1.40); POTASSIUM 3.9 mmol/L (3.5-5.1)
[2017-06-24] MEDS: LEVOTHYROXINE 25 MCG TAB PO SCH (06:14)
[2017-06-24] MEDS: FORMOTEROL FUMA NEBULIZER SOLN 20 MCG/2 ML VIAL INH SCH ×2 (07:09→19:16)
[2017-06-24] MEDS: BUDESONIDE 90 MCG INH INH SCH ×2 (07:50→21:02)
[2017-06-24] MEDS: LORATADINE 10 MG TAB PO SCH (07:50)
[2017-06-24] MEDS: PATIENT'S OWN MOMETASONE FUROATE-FORMOTEROL (DULERA) 200mcg/5mcg per inh INH SCH ×2 (07:50→21:02)
[2017-06-24] MEDS: DILTIAZEM HCL 60 MG TAB PO SCH (07:50)
[2017-06-24] MEDS: BUDESONIDE AQ (RHINOCORT AQ) NASAL SPRAY 32 MCG NAE SCH (07:50)
[2017-06-24] MEDS: ENOXAPARIN 40 MG/0.4 ML SYR SC SCH (07:51)
[2017-06-24] MEDS: PANTOprazole SOD 40 MG TAB PO SCH (07:51)
[2017-06-24] MEDS ORDERED: INFLUENZA VIRUS QUAD VACCINE 0.5 ML SYR IM. ONE (08:00)
[2017-06-24] MEDS ORDERED: PNEUMOCOCCAL POLYSACCHARIDES 25 MCG/0.5 ML VIAL/SYR IM. ONE (08:00)
[2017-06-24] MEDS ORDERED: PNEUMOCOCCAL ADMINISTRATION CHARGE ONE (08:00)
[2017-06-24] MEDS ORDERED: INFLUENZA ADMINISTRATION CHARGE ONE (08:00)
[2017-06-24] MEDS ORDERED: AZITHROMYCIN 250 MG TAB PO SCH (09:00)
[2017-06-24] MEDS ORDERED: TIOTROPIUM BROMIDE 5 PUFF/90 MCG INH INH SCH (09:00)
--- NOTE | 2017-06-24 13:45 | Hospitalist Progress Note ---
Hospitalist Progress Note Date of Service Jun 24, 2017. Subjective Pt evaluation today including: conversation w/ patient, conversation w/ family ( ), physical exam, lab review, review of studies, conversation w/ automotive service consultant (Santiago Roger ), review of inpatient medication list Voiding: no voiding problems Patient still in bed. No signs of acute distress. One short episode of gasping for air- states this is what has been happening- quickly resolved notes it will last for 6+ hours Patient states Ativan helps, but once medication wears off, gasping restarts Does not want to take Ativan at this point because "everyone is telling me it 's anxiety and I am not anxious" states she does not think he is anxious. Patient frustrated because workup unremarkable at this time, but he "is not fine." Very anxious about speaking with Pulmonary Patient denies any fever, chills, sweats, lightheadedness, dizziness, vision changes, CP, palpitations, edema, wheezing, cough, abdominal pain, nausea, vomiting, diarrhea, urinary symptoms, melena, numbness/tingling, weakness, muscle/joint pain, anxiety/depression, active bleeding, or new skin discoloration/changes. Medications Current Inpatient Medications Medications (Trade) Dose Ordered Sig/Dena Route Start Time Stop Time Status Last Admin Dose Admin Ioversol (Optiray 320) 100 ml UD PRN IV 06/23/17 15:15 06/27/17 15:14 Budesonide (Rhinocort Aq Nasal [place]) 2 sprays DAILY SIDNEY 06/24/17 09:00 07/24/17 08:59 06/24/17 07:50 2 SPRAYS Diltiazem HCl (Cardizem Tab) 60 mg DAILY PO 06/24/17 09:00 07/24/17 08:59 06/24/17 07:50 60 MG Levothyroxine Sodium (Synthroid Tab) 25 mcg DAILYBB PO 06/24/17 06:30 07/24/17 06:59 06/24/17 06:14 25 MCG Loratadine (Claritin Tab) 10 mg DAILY PO 06/24/17 09:00 07/24/17 08:59 06/24/17 07:50 10 MG Lorazepam (Ativan Tab) 0.5 mg TID PRN PO 06/23/17 17:45 07/23/17 17:44 06/24/17 06:46 0.5 MG Montelukast Sodium (Singulair Tab) 10 mg QPM PO 06/23/17 21:00 07/23/17 20:59 06/23/17 21:10 10 MG Tiotropium [place] (Spiriva Handihaler Inhaler) 1 puff DAILY INH 06/24/17 09:00 07/24/17 08:59 06/24/17 07:50 1 PUFF Budesonide (Pulmicort Inhaler) 4 puffs BID INH 06/23/17 21:00 07/23/17 20:59 06/24/17 07:50 4 PUFFS Pantoprazole Sodium (Protonix Tab) 40 mg QAM PO 06/24/17 09:00 07/24/17 08:59 06/24/17 07:51 40 MG Enoxaparin Sodium (Lovenox Inj) 40 mg Q24H SC 06/24/17 09:00 07/24/17 08:59 06/24/17 07:51 40 MG Acetaminophen (Tylenol Tab) 650 mg Q4H PRN PO 06/23/17 17:45 07/23/17 17:44 Al Hydrox/Mg Hydrox/Simethicone (Maalox Max Susp) 15 ml Q4H PRN PO 06/23/17 17:45 07/23/17 17:44 Ondansetron HCl (Zofran Inj) 4 mg Q6H PRN IV 06/23/17 17:45 07/23/17 17:44 Polyethylene (Miralax Powder Packet) 17 gm DAILY PRN PO 06/23/17 17:45 07/23/17 17:44 Ipratropium [place] (Atrovent 0.02% 0.5MG/2.5ML Neb) 0.5 mg Q6R INH 06/23/17 21:00 07/23/17 20:59 06/24/17 01:42 0.5 MG Formoterol Fumarate (Perforomist 20MCG/2ML Neb Soln) 20 mcg BIDR INH 06/23/17 20:00 07/23/17 19:59 06/24/17 07:09 20 MCG Levalbuterol (Xopenex 1.25MG/ 0.5ML Neb) 1.25 mg Q6R INH 06/23/17 21:00 07/23/17 20:59 06/24/17 01:43 1.25 MG Prednisone (PredniSONE TAB) 40 mg DAILY PO 06/24/17 09:00 07/24/17 08:59 06/24/17 07:51 40 MG Azithromycin (Zithromax Tab) 250 mg QAM PO 06/24/17 09:00 07/01/17 08:59 06/24/17 07:51 250 MG Sodium Chloride 1,000 ml @ 100 mls/hr Q10H IV 06/23/17 18:30 07/23/17 18:29 06/24/17 04:49 100 MLS/HR Mometasone Furoate/ Formoterol Fumar (Dulera) 2 ea BID INH 06/24/17 09:00 07/24/17 08:59 06/24/17 07:50 2 EA Objective Vital Signs Date Time Temp Pulse Resp B/P (MAP) Pulse Ox O2 Delivery O2 Flow Rate FiO2 06/24/17 11:55 Room Air 06/24/17 11:19 36.7 100 20 115/66 (82) 96 Room Air 06/24/17 07:45 Room Air 06/24/17 07:44 36.5 89 23 113/56 (75) 99 Room Air 06/24/17 07:09 80 20 97 Room Air 06/24/17 04:05 Room Air 06/24/17 03:55 36.9 101 19 118/77 (91) 93 Room Air 06/24/17 01:43 91 20 97 Room Air 06/24/17 00:11 36.7 74 17 104/59 (74) 98 Room Air 06/24/17 00:05 96 Room Air 06/23/17 21:00 96 Room Air 06/23/17 20:36 36.6 83 28 114/66 (82) 95 Room Air 06/23/17 19:57 77 30 111/74 98 06/23/17 19:44 Room Air 06/23/17 19:22 77 30 111/74 98 Room Air 06/23/17 17:30 76 30 114/73 98 Room Air 06/23/17 16:54 75 06/23/17 16:30 70 22 117/70 99 Room Air 06/23/17 16:11 68 30 107/77 99 Room Air 06/23/17 15:57 74 20 99 Room Air 06/23/17 14:48 72 30 113/64 97 Room Air 06/23/17 13:32 57 18 119/71 100 Nebulizer Physical Exam General Appearance: no apparent distress Eyes: normal inspection, PERRL ENT: hearing grossly normal Neck: supple Respiratory/Chest: lungs clear, no respiratory distress, no accessory muscle use, + decreased breath sounds (throughout ), + pertinent finding (pectus excavatum) Cardiovascular: regular rate, rhythm Abdomen: normal bowel sounds, non tender, soft Extremities: no pedal edema, no calf tenderness Neurologic/Psychiatric: alert, normal mood/affect, oriented x 3 Skin: normal color, warm/dry, no rash Laboratory Results Last 24 Hours Test 06/23/17 13:28 06/24/17 05:27 Urine Color YELLOW Urine Appearance CLEAR Urine pH 6.0 Urine Specific [place] 1.013 Urine Protein NEG Urine Glucose (UA) NEG Urine Ketones NEG Urine Occult Blood NEG Urine Nitrite NEG Urine Bilirubin NEG Urine Urobilinogen NEG Urine Leukocyte Esterase NEG White Blood Count 5.29 K/uL Red Blood Count 4.40 M/uL Hemoglobin 13.7 g/dL Hematocrit 41.5 % Mean Corpuscular Volume 94.3 fL Mean Corpuscular Hemoglobin 31.1 pg Mean Corpuscular Hemoglobin Concent 33.0 g/dl RDW Standard Deviation 52.2 fL RDW Coefficient of Variation 15.2 % Platelet Count 125 K/uL Mean Platelet Volume 10.1 fL Sodium Level 143 mmol/L Potassium Level 3.9 mmol/L Chloride Level 111 mmol/L Carbon Dioxide Level 23 mmol/L Anion Gap 9.0 mmol/L Blood Urea Nitrogen 12 mg/dl Creatinine 0.62 mg/dl Est Creatinine Clear Calc Drug Dose 163.0 ml/min Estimated GFR () 140.8 Estimated GFR (Non- 121.5 BUN/Creatinine Ratio 19.1 Random Glucose 132 mg/dl Calcium Level 8.7 mg/dl Assessment and Plan 42-year-old male with restrictive lung disease due to pectus excavatum disorder presents with acute dyspnea of undetermined origin. Acute reactive airway disease, ?underlying element of anxiety and bronchospasms , pectus excavatum- follows w/ Dr. Morrissey: - Admitted to med/surg - Continue home inhalers- stopping Spiriva per pulmonary recommendations - Prednisone 40 mg daily - Azithromycin 500 mg daily - DuoNeb q6 hrs PRN - Ativan 0.5 mg TID PRN - CTA w/out evidence of PE - Consulted pulmonary, appreciate recommendations -- Increase Azithromycin to 500 mg -- Stop Spiriva -- Vibration vest, flutter valve, incentive spirometer -- f/u outpatient next /Tue Hypothyroidism: Continue Synthroid 25 mcg daily HTN: Continue Diltiazem 60 mg daily GI prophylaxis: Protonix 40 mg daily- resume Prilosec at discharge DVT prophylaxis: Lovenox SQ Code Status: LEVEL I, FULL Dispo: From home, lives with - discharge to home once medically stable- likely tomorrow
--- NOTE | 2017-06-24 14:54 | CONSULTATION REPORT ---
DATE OF CONSULTATION: 06/24/2017 DATE OF CONSULTATION: 06/24/2017 REASON FOR CONSULTATION: Dyspnea/restrictive lung disease. HISTORY OF PRESENT ILLNESS: The patient is a 42-year-old male well known to our office with past medical history including asthma, scoliosis, pectus excavatum, sleep apnea, pulmonary embolic disease. The patient was in his normal state of health until approximately about a month ago. At that time the patient and his report that there was a respiratory illness that went through the family, everybody got it. The patient was treated with azithromycin and it seemed to slowly improve. Unfortunately, the patient and family recontracted the respiratory illness. The patient presented to the office yesterday to be evaluated by Dr. Morrissey and when he was in the office Dr. Morrissey recommended that patient be seen in the Emergency Room due to some abnormal breathing patterns and increased shortness of breath. The patient has been having some low grade intermittent fevers off and on. No headaches, no chills, no sweats. States his breathing has been more short, he has been having some chest tightness and heaviness. He has not had significant amount of cough though he does cough occasionally. There has not been any significant mucous production, unsure of any color with the mucus. He has felt short of breath. He does have episodes where he feels that he cannot catch his breath and his breathing becomes more rapid. He was having some chest discomfort yesterday which in the ER was rated as 8/10 in severity. He is no longer having that when I evaluated him today. He is still having difficulty breathing. He states that he had difficulty overnight with his breathing. He woke up at approximately 4:00 a.m. gasping for air. According to nursing he had been given some Ativan which did seem to help but now he is refusing because he was told that the Ativan was used for anxiety and he did not feel that this was anxiety. He and his are concerned that there is something more severe going on. On talking with the patient today he is feeling that his inhalers and nebulizer are not really working that well right how. He states that the IV medicines have not really made much of a difference to this point. He has not been on any oxygen at this point. He has not had any other concerns. Again, no current chest pain. No GI issues. No nausea or vomiting. No indigestion or heartburn. He has not had any episodes of vomiting or difficulty swallowing. No episodes of reflux that he is aware of. He has not had any bowel difficulties, no voiding difficulties, no swelling in his extremities. The patient did have lab work done in the ER which showed a white count of 3.8, H&H 14.5 and 44.0, platelet count 135,000. INR 1.0. Renal profile unremarkable. Urine unremarkable. The patient did have a chest x-ray done which showed a cardiomegaly as well as a left basilar opacity suggestive of atelectasis. The patient also had a CT angiogram done due to history of pulmonary emboli last June/July following a hemorrhoid surgery. The pulmonary emboli was felt to be secondary to hemorrhoid surgery. The patient was on Coumadin for 6 months and then was discontinued in January. A CT angiogram did not show any evidence of pulmonary embolism, did show some atelectatic changes in the lower lobes bilaterally. Did show chronic pectus deformity. PAST MEDICAL HISTORY: Includes asthma, scoliosis, pectus excavatum, osteoporosis, hypothyroidism, reflux, hypertension, hyperlipidemia, pulmonary embolism, prior history of typhoid, prior history of malaria, prior history of schistosomiasis, history of anxiety, obstructive sleep apnea diagnosed in 2012. The patient was unable to tolerate CPAP. PAST SURGICAL HISTORY: Includes hemorrhoidectomy, right and left cataract surgery, right tympanostomy. FAMILY HISTORY: Father has degenerative joint disease and is alive and well. SOCIAL HISTORY: The patient is a lifelong nonsmoker, nondrinker. 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 Previously was in [facility] and [facility]. Currently he and his are looking to start a new mission in [place]. They have been travelling, although not recently, to this area. HOME MEDICATIONS: Include vitamin C 1000 mg daily, Pulmicort Flexhaler 2 puffs b.i.d., Rhinocort 2 sprays each nostril daily, calcium with vitamin D 600 mg b.i.d., vitamin D3 2000 international units daily, Prolia 1 dose injected, Cardizem 60 mg daily, fish oil 1 cap daily, Synthroid 25 mcg daily, loratadine 10 mg daily, Dulera 200 two puffs twice daily, Singulair 10 mg daily, multivitamin daily, omeprazole 40 mg daily, Spiriva 1 capsule in inhaler daily, diclofenac gel topically as needed, levalbuterol q. 4 hours as needed for shortness of breath, lorazepam 0.5 mg t.i.d. as needed. ALLERGIES: GLUTEN, CIPROFLOXACIN AND OXYCODONE. REVIEW OF SYSTEMS: As above, otherwise unremarkable. PHYSICAL EXAMINATION: GENERAL: The patient is a 42-year-old male lying in bed, appears agitated, is interactive and cooperative, does have episodes where he has very irregular breathing pattern. These last anywhere from 5 to 30 seconds, rest of the time he does not appear in any acute respiratory distress. No acute distress in general. He is able to complete sentences without difficulty. VITAL SIGNS: Temp 36.7, pulse 100, respirations 20, blood pressure is 115/66, pulse ox 96% on room air. HEAD, EYES, EARS, NOSE, AND THROAT: Normocephalic, atraumatic. Pupils equal, round and reactive to light and accommodation. Extraocular movements are intact. [place], moist gingival and buccal mucosa. NECK: Thin and supple. No mass. No adenopathy. No bruit. CHEST: The patient has diminished breath sounds bilaterally. He does have some faint expiratory wheeze in the upper airways. No rale or rhonchi noted. On the chest wall the patient has a significant pectus excavatum. CARDIOVASCULAR: Regular rate and rhythm. There are no murmurs, gallops or rubs appreciated. PMI is displaced to the left. ABDOMEN: Bowel sounds are present. Abdomen soft, nontender. No guarding, rigidity or organomegaly. EXTREMITIES: No erythema or edema. No cyanosis or clubbing noted. NEUROLOGIC: Cranial nerves II-XII are intact. No focal deficit noted. CURRENT LABORATORY DATA: Today includes white count 5,000, H&H 13.7 and 41.5, platelet count 125,000. Renal is unremarkable. IMPRESSION: A 42-year-old male with significant respiratory history including asthma, pectus excavatum, restrictive lung disease secondary to pectus excavatum as well as scoliosis. Also has history of aspergillus in bronchoscopy washings from 2003 presents with acute illness with exacerbation of his asthma. At this time I had a long discussion with the patient in regards to what I think is going on, which is probably a little bit of bronchospasm which is causing him to feel tight and is actually triggering his anxiety a little bit. I did get the patient to be agreeable to using Ativan as needed as this does seem to be helpful in slowing his breathing down and providing him some relief. Would like for the patient to be on oxygen 1 liter per minute by nasal cannula. Currently, he is on prednisone 40 mg daily. I think we can continue that. He is on Zithromax, may need to adjust the dosing of that or switch to alternative antibiotic. I am going to stop his Spiriva HandiHaler as this can irritate the upper airway and cause a little bit of bronchospasm as well. Will encourage the patient to use his Ativan. I am going to try him with vibration vest just to be placed on him in case there is a little bit of mucus plugging going on. Will have the patient have a flutter valve and incentive spirometry as well. Did discuss the case with Dr. Weller and Dr. Weller will follow in the a.m. Patient seen in room plan reviewed. Agree with the above assessment plan. GUILLERMINA
[2017-06-24] MEDS: MONTELUKAST SOD 10 MG TAB PO SCH (21:03)
[2017-06-25] VITALS (9 sets, daily range): BP systolic 119–123; BP diastolic 63–71; PULSE 78–104; TEMP 36.8–36.9; O2SAT 94–98
[2017-06-25] MEDS: LEVALBUTEROL 1.25MG/0.5ML NEB INH SCH ×2 (01:53→07:16)
[2017-06-25] MEDS: IPRATROPIUM BROMIDE NEB SOLN 0.02% 2.5 ML VIAL INH SCH ×2 (01:53→07:16)
[2017-06-25] MEDS: SODIUM CHLORIDE 0.9% 1000ML 1,000 ML IV SCH ×2 (02:48→12:22)
[2017-06-25] MEDS: LEVOTHYROXINE 25 MCG TAB PO SCH (05:55)
[2017-06-25] MEDS: FORMOTEROL FUMA NEBULIZER SOLN 20 MCG/2 ML VIAL INH SCH (07:14)
[2017-06-25] MEDS: PATIENT'S OWN MOMETASONE FUROATE-FORMOTEROL (DULERA) 200mcg/5mcg per inh INH SCH (08:46)
[2017-06-25] MEDS: BUDESONIDE 90 MCG INH INH SCH (08:47)
[2017-06-25] MEDS: BUDESONIDE AQ (RHINOCORT AQ) NASAL SPRAY 32 MCG NAE SCH (08:47)
[2017-06-25] MEDS: LORATADINE 10 MG TAB PO SCH (08:48)
[2017-06-25] MEDS: DILTIAZEM HCL 60 MG TAB PO SCH ×2 (08:48→10:03)
[2017-06-25] MEDS: PANTOprazole SOD 40 MG TAB PO SCH (08:48)
[2017-06-25] MEDS: ENOXAPARIN 40 MG/0.4 ML SYR SC SCH (08:49)
[2017-06-25] MEDS ORDERED: AZITHROMYCIN 250 MG TAB PO SCH (09:00)
[2017-06-25] MEDS ORDERED: PRD20 PO (12:15)
[2017-06-25] MEDS ORDERED: AZIT-57 PO (12:15)
--- NOTE | 2017-06-25 12:19 | Discharge Instructions ---
Discharge Instructions Date of Service Jun 25, 2017. Admission Reason for Admission: Acute Dyspnea Discharge Discharge Diagnosis / Problem: Acute dyspnea due to bronchospasm, anxiety Discharge Goals Goal(s): Decrease discomfort, Improve function Activity Recommendations Activity Limitations: resume your previous activity . Instructions / Follow-Up Instructions / Follow-Up Medications: - AZITHROMYCIN: start tomorrow, 500mg daily for 3 more days to cover atypical bacteria - PREDNISONE: complete quick taper follow up closely with Santiago Roger on Tuesday, call office for appointment time , details In summary, CXR and CT chest without clear etiology. No wheezing on exam but you did improve with steroids, Azithromycin, nebulizers, Ativan and oxygen. will d/c home on Prednisone, Azithromycin continue to hold Spiriva per pulmonary as this can cause some bronchospasm Santiago Roger will give further instructions on Tuesday Current Hospital Diet Patient's current hospital diet: Regular Diet Discharge Diet Recommended Diet: Regular Diet Pending Studies Studies pending at discharge: no Medical Emergencies . Who to Call and When: Medical Emergencies: If at any time you feel your situation is an emergency, please call 911 immediately. . Non-Emergent Contact Non-Emergency issues call your: Game Operator Call Non-Emergent contact if: you have any medication questions . . "Provider Documentation" section prepared by Trace Lares. . VTE Core Measure Inpt VTE Proph given/why not?: Enoxaparin (Lovenox) [place] Drug Monitoring Program Search Results: no issues identified
--- NOTE | 2017-06-25 14:20 | Pulmonology Progress Note ---
Pulmonary Progress Note Date of Service Jun 25, 2017. Attending Dr. Weller Subjective Patient doing well today notes that he is 80% back to his baseline at this time. He denies any fever, chills, dyspnea out of proportion at this time. He does continue have some URI type signs and symptoms. Objective Patient doing well able set up to ambulate throughout the room showing no signs of accessory muscle use. He is able to complete full sentences no signs of tachypnea at this time physical exam no change from patient's baseline. Vital signs: Stable on room air Respiratory: Clear to auscultation Cardiac: S1 and S2 distant heart sounds Abdomen: Soft nontender Extremities: No clubbing cyanosis or edema Assessment & Plan 42-year-old gentleman with chronic bronchiectasis and associated pectus excavatum admitted for acute respiratory insufficiency: #1 respiratory insufficiency: The patient has had dramatic improvement over the last 24 hours and notes she is almost back to his baseline. This time I agree with discharge in the patient will require follow-up over the next 1-[address] Cesar Morrissey. Patient should resume his previous outpatient medical regimen and continue his current antibiotic course. Data I & O: 24-Hour Column 06/26/17 08:00 Output Total 0 ml Balance 0 ml Vital Signs: Date Time Temp Pulse Resp B/P (MAP) Pulse Ox O2 Delivery O2 Flow Rate FiO2 06/25/17 12:12 36.8 100 16 94 Room Air 06/25/17 12:00 Room Air 06/25/17 11:33 36.8 100 16 119/71 (87) 94 06/25/17 08:00 97 Room Air 06/25/17 07:17 78 18 97 Room Air 06/25/17 07:12 36.9 104 18 123/63 (83) 97 Room Air 06/25/17 04:53 36.9 104 20 123/63 (83) 97 Nasal Cannula 2.5 06/25/17 04:00 98 Nasal Cannula 1.0 06/25/17 01:53 82 18 95 Room Air 06/25/17 00:00 98 Room Air 1.0 06/25/17 00:00 98 Nasal Cannula 1.0 06/24/17 23:52 36.8 100 20 99/56 (70) 96 Room Air 06/24/17 20:03 36.7 79 18 98/64 (75) 98 Nasal Cannula 1.5 06/24/17 20:00 98 Nasal Cannula 1.0 06/24/17 19:17 79 20 98 Nasal Cannula 2.0 06/24/17 16:00 96 Nasal Cannula 1.0 06/24/17 14:59 37.0 98 18 116/52 (73) 96 Nasal Cannula 2.0 06/24/17 14:22 87 20 98 Room Air Laboratory Results: Last 24 Hours Test 06/25/17 01:05 Bedside Glucose 123 mg/dl
--- NOTE | 2017-06-27 07:08 | Discharge Summary ---
Discharge Summary Date of Service Jun 25, 2017. Discharge Summary Admission Date: Jun 23, 2017 at 18:13 Discharge Date: Jun 25, 2017 Discharge Disposition: Home Principal Diagnosis: Acute dyspnea Problems/Secondary Diagnoses: Pectus excavatum and scoliosis causing restrictive lung disease Anxiety Procedures: none Consultations: Pulmonology Medication Reconciliation New Medications: Azithromycin (Azithromycin) 250 Mg Tab 500 MG PO QAM, #6 TAB 0 Refills Prednisone (Prednisone) 20 Mg Tab 40 MG PO DAILY, #8 TAB 0 Refills start 06/26/17: 40mg daily x 1 day then 30mg daily x 2 days, 20mg daily x 2 days and 10mg daily x 2 days Continued Medications: Ascorbic Acid (Vitamin C) 500 Mg Tab 1000 MG PO DAILY Budesonide (Inhalation) (Pulmicort Flexhaler) 180 Mcg/Act Inh 2 PUFFS INH BID for 30 Days, #1 INHALER 6 Refills Budesonide (Nasal) (Rhinocort Allergy) 32 Mcg/Act [place] 2 SPRAYS SIDNEY DAILY Calcium/Vitamin D (Os-Tommy 500 Plus D) Tab 600 MG PO BID, TAB Cholecalciferol (Vitamin D3) 2,000 Unit Cap 2000 INTER.UNIT PO DAILY for 90 Days, CAP 3 Refills Denosumab (Prolia) 60 Mg/1 Ml Inj 1 DOSE INJ UD Diclofenac Sodium (Topical) (Diclofenac Sodium) 1 % Gel 1 DOSE TOP PRN PRN for PRN Diltiazem Hcl (Cardizem) 60 Mg Tab 60 MG PO DAILY, TAB Fish Oil ([place]-3) 1 Ea Cap 1 CAP PO DAILY, CAP Levalbuterol Hcl (Levalbuterol) 1.25 Mg/0.5 Ml Neb 1 AMP INH Q4H PRN for SOB/Wheezing Levalbuterol Tartrate (Levalbuterol Tartrate Hfa) 45 Mcg/Act Aer 2 PUFFS INH Q4H PRN for SOB/Wheezing Levothyroxine Sodium (Synthroid) 25 Mcg Tab 25 MCG PO DAILY, TAB Loratadine (Claritin) 10 Mg Tab 10 MG PO DAILY, 0 Refills Lorazepam (Ativan) 0.5 Mg Tab 0.5 MG PO TID PRN for Anxiety, TAB Mometasone Furoate-Formoterol (Dulera 200/5 Mcg) 1 Aer Aer 2 PUFFS INH BID for 30 Days, #13 GM 3 Refills Montelukast Sod (Montelukast Sodium) 10 Mg Tab 10 MG PO QPM Multivitamins/Minerals (Mvi With Minerals) Tab 1 TAB PO DAILY, TAB Omeprazole (Prilosec) 20 Mg Capcr 40 MG PO DAILY, 0 Refills Discontinued Medications: Tiotropium [place] (Spiriva Handihaler) 30 Puff/540 Mcg Aerp 1 CAP INH DAILY, INHALER Discharge Exam Patient feeling well on day of discharge, breathing much improved. He removed oxygen in the morning and felt well all day. Discussed plans with family and patient. Discussed with Dr. Weller who saw the patient later in the day. Review of Systems: Constitutional: No fever, No chills, No sweats, No weight loss, No weakness , No fatigue, No problem reported Eyes: No worsening of vision, No eye pain, No redness, No discharge, No diplopia, No problem reported ENT: No hearing loss, No unusual epistaxis, No nasal symptoms, No sore throat, No tinnitus, No dental problems, No trouble swallowing, No problem reported Respiratory: No cough, No sputum, No wheezing, No shortness of breath, No dyspnea on exertion, No dyspnea at rest, No hemoptysis, No problem reported Cardiovascular: No chest pain, No orthopnea, No PND, No edema, No claudication, No palpitations, No problem reported Abdomen: No pain, No nausea, No vomiting, No diarrhea, No constipation, No GI bleeding, No problem reported Musculoskeletal: No joint pain, No muscle pain, No swelling, No calf pain, No problem reported Genitourinary - Male: No hematuria, No urinary frequency, No urinary urgency Neurologic: No memory loss, No paralysis, No weakness, No numbness/tingling , No vertigo, No balance problems, No problem reported Psychiatric: No depression symptoms, No anhedonism, No anxiety, No insomnia , No substance abuse, No problem reported Endocrine: No fatigue, No excessive thirst, No excessive urination, No problem reported Hematologic / Lymphatic: No abnormal bleeding/bruising, No clotting problems , No swollen lymph nodes, No night sweats, No problem reported Integumentary: No rash, No itch, No new/changing skin lesions, No color change, No bleeding, No problem reported Physical Exam: General Appearance: no apparent distress, + thin Eyes: normal inspection, EOMI, sclerae normal ENT: normal ENT inspection, hearing grossly normal, pharynx normal Neck: supple, no adenopathy, no JVD, trachea midline Respiratory/Chest: chest non-tender, lungs clear, normal breath sounds, no respiratory distress, no accessory muscle use, + pertinent finding (pectus excavatum deformity) Cardiovascular: regular rate, rhythm, no edema, no gallop, no JVD, no murmur , normal peripheral pulses Abdomen / GI: normal bowel sounds, non tender, soft, no organomegaly, no pulsatile mass Extremities: no calf tenderness, normal capillary refill, no pedal edema, normal range of motion, non-tender, pelvis stable, + pertinent finding ( scoliosis) Neurologic/Psychiatric: leather scrubber 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, no motor/sensory deficits , alert, normal mood/affect, normal reflexes, oriented x 3 Skin: normal color, warm/dry, no rash Hospital Course - Acute dyspnea in patient with pectus excavatum, asthma, scoliosis, restrictive lung disease supplemental oxygen 1L [place] initially but never hypoxic, titrated off on 06/25 stop Spiriva as could cause bronchospasm, continue other maintenance inhalers Prednisone 40mg daily with quick taper over 8 days, Azithromycin 500mg daily for total of 5 days Ativan as needed to relax patient vibratory vest, flutter valve, incentive spirometry will follow up closely with Santiago JAFFE pulmonary on Thursday 06/28 other chronic conditions such as HTN, GERD, hypothyroidism all stable Total Time Spent: Less than 30 minutes This includes examination of the patient, discharge planning, medication reconciliation, and communication with other providers. Discharge Instructions Please refer to the electronic Patient Visit Report (Discharge Instructions) for additional information. Follow-Up Santiago JAFFE on 06/28 Additional Copies To Barrington Adorno M.D.; Santiago Roger PA-C
== END 2017-06-25 13:35 | disposition home or self-care (01) ==
LOC: C.EDB 12:11 → C.MED 18:13 → ENRESERV 19:05
PROVIDERS: ADMIT Internal Medicine; ATTEND Internal Medicine
DX: R06.00 Dyspnea, unspecified (principal); Q67.6 Pectus excavatum; M41.9 Scoliosis, unspecified; J45.909 Unspecified asthma, uncomplicated; J98.4 Other disorders of lung; I10 Essential (primary) hypertension; K21.9 Gastro-esophageal reflux disease without esophagitis; E03.9 Hypothyroidism, unspecified; Z79.899 Other long term (current) drug therapy

== ENCOUNTER 2017-06-26 13:18 | Emergency (ER) | payer OTHER ==
[~2017-06-26] VITALS: Ht 190.5 cm; Wt 72.0 kg
[~2017-06-26 13:18] MED LIST changes: +AZIT-57 PO; +BUDE1SUS8 NAE; -CPRDOTS OT; -EPP3/2 IM; +LEVA1.255 INH; +LEVA45AE INH; -LEVA45AE PO; -NYSS5 PO; +PRD20 PO; -RHNAQIN NAE; -SPRIN/30 INH; -TRAMTAB5 PO; -XOPENEX INH
[2017-06-26 13:22] VITALS: TEMP 36.8; Ht 190.5 cm; Wt 72.0 kg
--- NOTE | 2017-06-26 15:08 | DIAGNOSTIC IMAGING REPORT ---
LEFT LOWER EXTREMITY VENOUS DOPPLER HISTORY: left calf pain, recent hospital admission COMPARISON STUDY: Venous Doppler 03/10/2017. FINDINGS: Persistent heterogeneous thrombus within the left popliteal vein which is nonocclusive. This is similar to the prior study and is likely chronic. The remaining left lower extremity deep venous structures are patent. IMPRESSION: No acute DVT within the left lower extremity. 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 Electronically signed by: Lobo Wilkins M.D. 06/26/2017 3:07 PM Dictated Date/Time: 06/26/2017 3:05 PM
--- NOTE | 2017-06-26 16:08 | DIAGNOSTIC IMAGING REPORT ---
L TIBIA/FIBULA 2 VIEWS ROUTINE CLINICAL HISTORY: left calf pain COMPARISON STUDY: None. FINDINGS: The bones are osteopenic. There is atrophy of the muscles. No fracture or dislocation within the left tibia or fibula. Soft tissues are unremarkable. No radiopaque foreign bodies. IMPRESSION: No fractures within the left lower leg. Electronically signed by: Lobo Wilkins M.D. 06/26/2017 4:07 PM Dictated Date/Time: 06/26/2017 4:05 PM
--- NOTE | 2017-06-26 16:32 | EMERGENCY ROOM VISIT NOTE ---
ED Visit Note First contact with patient: 13:36 CHIEF COMPLAINT: Left calf pain HISTORY OF PRESENT ILLNESS: This 42-year-old male patient presents to the emergency department, ambulatory, with his , complaining of significant left calf pain which began this morning. The patient states yesterday, he was discharged from the hospital here for dyspnea. He states he was admitted for 3 days, was discharged without a specific diagnosis or cause for the dyspnea. He states he has been feeling significantly better, however he awoke this morning complaining of significant left calf pain. He states it is hard to walk or stand, as any weightbearing causes significant discomfort. He does have a history of DVT, and states he was behind the left knee approximately one year ago. The patient states the pain he is experiencing now is similar to the pain he experienced with a DVT in the past. He states in the past, he had very minimal pain, no swelling, no redness. He states this time there is also no swelling or redness. The patient contacted his PCP service station helper, who advised him to come to the emergency department for further evaluation for possible DVT. The patient states he has had no injury, and has not fallen. While admitted in the hospital. He had Lovenox on day one, but then been a lot of time up walking around through the hospital. The patient states yesterday, he slept approximately 12 hours overnight, and did not do much moving around at home. He describes the pain as "like it will give out" and describes it as sharp and rates it 7/10. He has not taken any medications for the pain. There has been no improvement. There is no associated dyspnea, cough, or coughing up blood associated with the leg pain. REVIEW OF SYSTEMS: A review of systems was performed with positives and pertinent negatives listed in the history of present illness. All other systems were reviewed and are negative. ALLERGIES: Gluten, oxycodone, ciprofloxacin MEDICATIONS: Vitamin C, azithromycin, Pulmicort, Rhinocort, calcium, vitamin D, Prolia, diclofenac, Cardizem, fish oil, leave albuterol, Synthroid, Claritin, Ativan, dulera, Singulair, multivitamin, Prilosec, prednisone PMH: Dyspnea, hypothyroidism, GERD SOCIAL HISTORY: He lives locally with family. She denies drug, alcohol, tobacco use. PHYSICAL EXAM: VITALS: Vitals are noted on the nurse's note and reviewed by myself. Vital signs stable. GENERAL: This is a 42-year-old white male, in no acute distress, nondiaphoretic , well-developed well-nourished. SKIN: The skin was without rashes, erythema, edema, or bruising. There is no tenting of the skin. Capillary reflex less than 2 seconds. HEAD: Normocephalic atraumatic. EARS: External auditory canals clear, tympanic membranes pearly mohr without erythema or effusion bilaterally. EYES: Pupils equal round and reactive to light and accommodation. Conjunctivae without injection, sclerae without icterus. Extraocular movements intact. NOSE: Patent, turbinates without inflammation or discharge. No sinus tenderness. MOUTH: Mucous membranes moist. Tonsils are not enlarged. Pharynx without erythema or exudate. Uvula midline. Airway patent. Tongue does not deviate. NECK: Supple without nuchal rigidity. No lymphadenopathy. No thyromegaly. Cervical spine is nontender. No JVD. HEART: Regular rate and rhythm without murmurs gallops or rubs. LUNGS: Clear to auscultation bilaterally without wheezes, rales or rhonchi. No dullness to percussion. No retractions or accessory muscle use. ABDOMEN: Positive bowel sounds x 4. Normal tympanic percussion. Soft, nontender, without masses or organomegaly. Zaargoza sign negative. No guarding or rebound tenderness. MUSCULOSKELETAL: No muscle atrophy, erythema, or edema noted. There is tenderness on deep palpation of the left calf. There is no tibia or fibula tenderness. There is no discomfort of the ankle or foot. There is no limitation to range of motion. The patient does have increased tenderness with weightbearing. Pedal pulse 2+. Full range of motion without joint tenderness in all extremities. No tenderness to palpation. Normal gait. Strength 5/5 throughout. NEURO: Patient was alert and oriented to person place and time. Normal sensation to light and sharp touch. Deep tendon reflexes 2+ throughout. No focal neurological deficits. RADIOLOGY: US Venous Doppler LLE: LEFT LOWER EXTREMITY VENOUS DOPPLER HISTORY: left calf pain, recent hospital admission COMPARISON STUDY: Venous Doppler 03/10/2017. FINDINGS: Persistent heterogeneous thrombus within the left popliteal vein which is nonocclusive. This is similar to the prior study and is likely chronic. The remaining left lower extremity deep venous structures are patent. IMPRESSION: No acute DVT within the left lower extremity. 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 Electronically signed by: Lobo Wilkins M.D. 06/26/2017 3:07 PM Dictated Date/Time: 06/26/2017 3:05 PM X-Ray Left Tib/Fib: L TIBIA/FIBULA 2 VIEWS ROUTINE CLINICAL HISTORY: left calf pain COMPARISON STUDY: None. FINDINGS: The bones are osteopenic. There is atrophy of the muscles. No fracture or dislocation within the left tibia or fibula. Soft tissues are unremarkable. No radiopaque foreign bodies. IMPRESSION: No fractures within the left lower leg. Electronically signed by: Lobo Wilkins M.D. 06/26/2017 4:07 PM Dictated Date/Time: 06/26/2017 4:05 PM EMERGENCY DEPARTMENT COURSE: She was seen and evaluated as above. A lower extremity venous Doppler ultrasound was performed to rule out DVT. This was negative for DVT, as reviewed by the radiologist. When I discussed the findings with the patient at bedside, he became very irritable and agitated, stating "there is something there". I advised the patient that I believe that there is something wrong with him, or he would not be here in the emergency department and did offer an x-ray. The patient states he would like to proceed with the x-ray, as he knows there is something wrong with his leg. The x-ray was obtained and reviewed by myself and radiologist, did not reveal any bony abnormality. The patient states "are you serious" and I stated that I am. They did offer to show him the x-ray, and he declines. When I discussed this with the patient, he became more irritated, as all tests have been negative. I did offer to perform ongoing testing including labs and/or CT scan of the leg, but the patient declines as well. I did also offer to have my attending physician evaluate the patient independently for a second opinion, and the patient declines this as well. He and his state he will follow up outpatient with his PCP for further evaluation of his symptoms. I offered the patient crutches or a walker, and he declines. He states he is having difficulty walking due to the pain, and I did offer pain medication, but he declines this as well. Discharge instructions were reviewed, and the patient was encouraged to follow up closely with his PCP outpatient and return to the emergency department for any worsening symptoms which are not managed with OTC pain medication. The patient was discharged home in good condition. I attest that I have personally reviewed the patient's current medication list. Patient was found to have normal blood pressure on screening and does not require follow-up. DIFFERENTIAL DIAGNOSIS: Fracture, DVT, contusion, sprain, strain, muscular injury, muscle spasm, superficial thrombosis, cellulitis, abscess, malignancy, and others DIAGNOSIS: Left calf pain Problem List Medical Problems: (1) Aspiration pneumonia Status: Resolved (2) Asthma Status: Chronic (3) Mastoiditis, chronic Status: Resolved (4) Right otitis media Status: Resolved Current/Historical Medications Scheduled Ascorbic Acid (Vitamin C), 1,000 MG PO DAILY Azithromycin (Azithromycin), 500 MG PO QAM Budesonide (Inhalation) (Pulmicort Flexhaler), 2 PUFFS INH BID Budesonide (Nasal) (Rhinocort Allergy), 2 SPRAYS SIDNEY DAILY Calcium/Vitamin D (Os-Tommy 500 Plus D), 600 MG PO BID Cholecalciferol (Vitamin D3), 2,000 INTER.UNIT PO DAILY Denosumab (Prolia), 1 DOSE INJ UD Diltiazem Hcl (Cardizem), 60 MG PO DAILY Fish Oil ([place]-3), 1 CAP PO DAILY Levothyroxine Sodium (Synthroid), 25 MCG PO DAILY Loratadine (Claritin), 10 MG PO DAILY Mometasone Furoate-Formoterol (Dulera 200/5 Mcg), 2 PUFFS INH BID Montelukast Sod (Montelukast Sodium), 10 MG PO QPM Multivitamins/Minerals (Mvi With Minerals), 1 TAB PO DAILY Omeprazole (Prilosec), 40 MG PO DAILY Prednisone (Prednisone), 40 MG PO DAILY Scheduled PRN Diclofenac Sodium (Topical) (Diclofenac Sodium), 1 DOSE TOP PRN PRN for PRN Levalbuterol Hcl (Levalbuterol), 1 AMP INH Q4H PRN for SOB/Wheezing Levalbuterol Tartrate (Levalbuterol Tartrate Hfa), 2 PUFFS INH Q4H PRN for SOB/ Wheezing Lorazepam (Ativan), 0.5 MG PO TID PRN for Anxiety Allergies Coded Allergies: Gluten (Verified Allergy, Unknown, patient preference-gluten free, ) Ciprofloxacin (Verified Adverse Reaction, Intermediate, issue with legs , 06/26/17) Oxycodone (Verified Adverse Reaction, Mild, GI upset , 06/26/17) Vital Signs Date Time Temp Pulse Resp B/P (MAP) Pulse Ox O2 Delivery O2 Flow Rate FiO2 06/26/17 16:41 90 18 121/71 93 06/26/17 15:23 86 18 116/79 96 06/26/17 13:22 36.8 107 18 145/71 97 Room Air Departure Information Impression Primary Impression: Pain of left calf Dispostion Home / Self-Care Condition GOOD Referrals Barrington Adorno M.D. (PCP) Patient Instructions ED Acute Pain [facility], [facility] Additional Instructions You were seen in the emergency department today for left calf pain. Ultrasound did rule out DVT, and x-ray did rule out acute bony injury. As discussed, I am uncertain exactly what is causing your pain. I do encourage close follow-up with the PCP, and try to be seen tomorrow. Please stay active. Use a walker or other device to help you move around the house. Use heat and/or ice if they help with the discomfort. As discussed, I would encourage you to stretch and perform range of motion exercises of the lower extremity. Ibuprofen(Motrin, Advil) may be used for fever or pain. Use 600mg every six hours as needed. Take with food. Avoid using more than 2400mg in a 24 hour period. Do not use 2400mg per day for more than three consecutive days without physician direction. Prolonged inappropriate use can lead to stomach upset or ulcers. (AND/OR) Acetaminophen(Tylenol) may be used for fever or pain. Use 1000mg every six hours as needed. Avoid using more than 3000mg in a 24 hour period. Please return to the emergency department for worsening pain, difficulty breathing, redness, swelling, discoloration, or other concerning symptoms.
[2017-06-26 16:41] VITALS: BP 121/71; PULSE 90; O2SAT 93
== END 2017-06-26 16:44 | disposition home or self-care (01) ==
LOC: C.EDB 13:19 → C.EDD 16:44
DX: M79.662 Pain in left lower leg (principal); E03.9 Hypothyroidism, unspecified; K21.9 Gastro-esophageal reflux disease without esophagitis; J45.909 Unspecified asthma, uncomplicated; Z79.899 Other long term (current) drug therapy; Z86.718 Personal history of other venous thrombosis and embolism; Z87.01 Personal history of pneumonia (recurrent)

== ENCOUNTER → 2017-07-06 | Outpatient (CLI) | payer OTHER ==
[~2017-07-06] MED LIST changes: +ACET-749 PO; +AMOX875T PO; -AZIT-57 PO; -LEVA1.255 INH; +LEVA1.255 NEB; -LORA-741 PO; -PRD20 PO; +SPRIN/30 INH; +VALA500T60 PO
[2017-07-06 19:00] LABS: LYME DISEASE AB IGG NEG (NEG); LYME DISEASE AB IGM NEG (NEG)
== END | disposition home or self-care (01) ==
LOC: C.LABBFT 15:35
PROVIDERS: ATTEND Physician Assistant Medical
DX: M25.562 Pain in left knee (principal)

== ENCOUNTER 2017-07-08 07:44 | Observation (INO) | payer OTHER ==
--- NOTE | 2017-07-07 21:04 | HISTORY & PHYSICAL EXAMINATION ---
DATE OF ADMISSION: 07/08/2017 DIAGNOSIS: Chronic otitis media of the right ear with perforation. HISTORY OF PRESENT ILLNESS: This 42-year-old gentleman presented with chronic otitis media of the right ear with a history of previous surgery in [facility] with failed repair of the tympanic membrane. I performed a tympanomastoidectomy for him on March 11. However, the patient continued to have drainage and was found to have a polyp a residual perforation of the right tympanic membrane. The patient presents for a revision of the right tympanomastoidectomy. He also has eustachian tube obstruction on both sides. PAST MEDICAL HISTORY: Medical problems. He had a history of blood clots and pulmonary embolism, which was treated with Coumadin with resolution. He is no longer on blood thinners. He also has recurrent episodes of bronchitis. Previous surgeries: Mastoidectomy of the right ear. PHYSICAL EXAMINATION: GENERAL: WNWD male, in no acute distress. HEAD: Normocephalic. EYES: Normal. EARS: The right tympanic membrane has a polyp or cyst in the inferior canal wall and also a residual perforation anteriorly. At the present time, there is no drainage from the ear. Left tympanic membrane has a tube in place. NOSE: Nasal passages patent. THROAT: Oropharynx normal. NECK: Supple. HEART: RRR. LUNGS: Clear. ABDOMEN: Soft. GENITOURINARY: Deferred. EXTREMITIES: Full range of motion. IMPRESSION: Chronic otitis media with residual perforation of the right ear and bilateral eustachian tube dysfunction. PLAN: For revision of tympanomastoidectomy of the right ear and ballooning of both eustachian tubes. GUILLERMINA
[~2017-07-08] VITALS: Ht 188 cm; Wt 71.8 kg
[2017-07-08] VITALS (8 sets, daily range): BP systolic 114–149; BP diastolic 75–82; PULSE 58–108; TEMP 36.3–37.3; O2SAT 95–99; Ht 188 cm; Wt 71.8 kg
[~2017-07-08 07:44] MED LIST changes: -ACET-749 PO; -AMOX875T PO; +CEFAZOLIN 2000MG IV PUSH 10 ML IV SCH; +LACTATED RINGER'S 1000ML 1,000 ML IV SCH
[2017-07-08] MEDS ORDERED: ONDANSETRON INJ 2 MG/ML 2 ML VIAL ONE (08:00)
[2017-07-08] MEDS ORDERED: ROCURONIUM BROMIDE 10 MG/ML 5 ML VIAL IV ONE ×2 (08:00→13:16)
[2017-07-08] MEDS ORDERED: GLYCOPYRROLATE INJ 0.2 MG/ML VIAL ONE (08:00)
[2017-07-08] MEDS ORDERED: LIDOCAINE HCL 2% 2 ML VIAL (20MG/ML) ONE (08:00)
[2017-07-08] MEDS ORDERED: DEXAMETHASONE SOD INJ 4 MG/ML VIAL ONE (08:00)
[2017-07-08] MEDS ORDERED: PROPOFOL IV EMULSION 10 MG/ML 20 ML VIAL IV ONE (08:00)
[2017-07-08] MEDS ORDERED: MIDAZOLAM HCL 1 MG/ML 2ML VIAL ONE (08:00)
[2017-07-08] MEDS ORDERED: NEOSTIGMINE METHYLSULFATE 5 MG/5 ML SYR ONE (08:00)
[2017-07-08] MEDS ORDERED: FENTANYL CITRATE INJ 50 MCG/1 ML 2 ML VIAL ONE ×3 (08:01→14:15)
[2017-07-08] MEDS ORDERED: SCOPOLAMINE 1.5 MG TDSY TD ONE (10:43)
[2017-07-08] MEDS ORDERED: NURSING VERBAL MED ORDER ONE ×3 (10:45→20:30)
[2017-07-08] MEDS ORDERED: ALBUT/IPRATROP 3MG/0.5MG NEB 3 ML VIAL INH ONE (11:00)
[2017-07-08] MEDS ORDERED: FLUMAZENIL 0.1 MG/1 ML 10 ML VIAL IV PRN (11:30)
[2017-07-08] MEDS ORDERED: ATROPINE SULFATE 0.1 MG/ML 5ML SYR IV PRN (11:30)
[2017-07-08] MEDS ORDERED: HYDROmorphone INJ 0.5 MG/0.5 ML SYR IV PRN (11:30)
[2017-07-08] MEDS ORDERED: PHENYLEPHRINE 100MCG/ML 5ML SYR IV PRN (11:30)
[2017-07-08] MEDS ORDERED: EpHEDrine SULFATE INJ 50 MG/ML AMP IV PRN (11:30)
[2017-07-08] MEDS ORDERED: NALOXONE HCL 0.4 MG/1 ML VIAL/CARP IV PRN (11:30)
[2017-07-08] MEDS ORDERED: LABETALOL HCL IV 5 MG/ML 20ML IV PRN (11:30)
[2017-07-08] MEDS ORDERED: MEPERIDINE HCL 25 MG/ML CARP IV PRN (11:30)
[2017-07-08] MEDS ORDERED: ONDANSETRON INJ 2 MG/ML 2 ML VIAL IV PRN ×2 (11:30→14:45)
[2017-07-08] MEDS ORDERED: FENTANYL CITRATE INJ 50 MCG/1 ML 2 ML VIAL IV PRN (11:30)
[2017-07-08] MEDS ORDERED: NEOMYC/POLYMYX/BACITR/HC OP OI 3.5 GM TUBE ONE (11:47)
[2017-07-08] MEDS ORDERED: NEOMYCIN/POLYMYX/BACITR OINT 15 GM TUBE ONE (11:47)
[2017-07-08] MEDS ORDERED: GELATIN SPONGE 12-7MM ONE (11:47)
[2017-07-08] MEDS ORDERED: EpINEphrine HCL INJ 1 MG/ML 5ML SYRINGE ONE (11:48)
[2017-07-08] MEDS ORDERED: NEOMYCIN/POLYMYX/HYDROCORT OT SUSP 10 ML BTL ONE (11:48)
[2017-07-08] MEDS ORDERED: PHENYLEPHRINE HCL INJ 10 MG/ML VIAL ONE (12:53)
[2017-07-08] MEDS ORDERED: LIDOCAINE/EPINEPHRINE 2% 1:200,000 20 ML SDV INJ ONE (14:11)
[2017-07-08] MEDS ORDERED: MoRPHine SULFATE 2 MG/ML CARP IV PRN (14:45)
[2017-07-08] MEDS ORDERED: OXYCODONE/ACETAMINOPHEN 5-325 TAB PO PRN ×2 (14:45)
[2017-07-08] MEDS ORDERED: ACETAMINOPHEN 325 MG TAB PO PRN (14:45)
[2017-07-08] MEDS ORDERED: MoRPHine SULFATE 4 MG/ML 1 ML CARP\\VIAL IV PRN (14:45)
[2017-07-08] MEDS ORDERED: IV FLUIDS COMPLETED PRN (15:00)
[2017-07-08] MEDS ORDERED: PROMETHAZINE HCL INJ 12.5 MG in SODIUM CHLORIDE 0.9% 50ML 50 ML IV ONE (15:15)
--- NOTE | 2017-07-08 15:41 | OPERATIVE REPORT ---
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 POSTOPERATIVE DIAGNOSIS: Same. PROCEDURE: Right tympanomastoidectomy and aborted eustachian tube dilation. COMPLICATIONS: None. SURGEON: Dr. Cali. ANESTHESIA: General endotracheal. BLOOD LOSS: 100 mL. HISTORY: This 42-year-old male presented with chronic otitis media. He had 2 previous surgeries at [facility] to repair of the right tympanic membrane perforation, which failed. He also underwent tympanomastoidectomy by dc in March, which again failed to heal the perforation. He again has drainage and a perforation of the right tympanic membrane. He also has eustachian tube dysfunction and dilation of eustachian tube was felt to be indicated. DESCRIPTION OF PROCEDURE: The patient was brought to the operating room and placed in the supine position. General endotracheal anesthesia was induced. The nose was decongested using topical epinephrine on cottonoid pledgets. The right naris was visualized with a 30-degree scope. The balloon catheter was inserted; however, on insertion toward the eustachian tube, epistaxis was noted. Therefore, the balloon of the eustachian tube was aborted and the bleeding was controlled using topical epinephrine. Attention was turned to the right ear. The right ear was prepped with Betadine scrub and paint and draped in usual sterile manner. The canal and postauricular area were injected with 2% Xylocaine with 1:100,000 strength epinephrine. The canal incisions were made at 12 o'clock superiorly and then at 3 o'clock anteriorly and then the incision was connected across the posterior and inferior and partly on to the anterior canal wall using the Bishop blade and the round knife. Elevation was of the tympanomeatal flap was performed using the round knife and the middle ear space was entered in the hypotympanum and elevation was continued superiorly preserving the chorda tympani nerve and noting the ossicles to be intact, noting adhesions into the facial recess area which were lysed using the Spann needle. At this point, the postauricular incision was made using the 15 blade, carried down through the skin and subcutaneous layer using the 15 blade. The temporalis fascia was missing from previous surgeries. A piece of periosteum from posteriorly over the mastoid was harvested and set aside for use later in the fascia press. The periosteal incision was made in the shape of a reverse 7 using the 15 blade. The periosteum was then elevated using the Lempert and freer elevators. The scar tissue was elevated from the mastoid antrum which was still mostly open. The canal skin was elevated and the Eder flap was elevated and reflected anteriorly with self-retaining retractors. Middle ear exploration was continued elevating the tympanomeatal flap inferiorly and then on to the anterior canal wall exposing all edges of the perforation. Again, the middle ear space was inspected. No sign of any other problems were noted. A polyp was removed and sent for biopsy. The cortical mastoidectomy was performed via the previous mastoidectomy opening. This was widened and freshened and the facial recess was again delineated using the 1.5 mm bur, opening up the facial recess exposing the head of the malleus and then the body of the incus. Again, noting no sign of cholesteatoma. Otherwise, the mastoid cavity was fairly clean. At this point, the middle ear space was filled with pieces of dry Gelfoam and also small pieces of Gelfoam and a graft was placed underneath the tympanomeatal flap at on top of the Gelfoam bed tucking it on to the sulcus anteroinferiorly and tucking it onto the posterior and inferior canal wall and then tucking it underneath the malleus and the residual tympanic membrane posteriorly and superiorly. Tympanomeatal flap was reflected back in its original position. The graft covered all edges of the perforation. The graft and the tympanomeatal flap were packed in position with pieces of Gelfoam dipped in Cortisporin and then with Cortisporin ointment. Postauricular incision was closed with interrupted 3-0 chromic sutures on the periosteum and a continuous 3-0 Monocryl suture was used to close the subcutaneous and subcuticular layer. The Arenac dressing was placed. The patient tolerated the procedure well and was taken to recovery area in satisfactory condition. I attest to the content of the Intraoperative Record and any orders documented therein. Any exceptions are noted below. GUILLERMINA
--- NOTE | 2017-07-08 15:54 | Anesthesiology Progress Note ---
Anesthesia Post Op Note Date & Time Jul 08, 2017 at 15:54 Vital Signs Pain Intensity: 0 Vital Signs Past 12 Hours Date Time Temp Pulse Resp B/P (MAP) Pulse Ox O2 Delivery O2 Flow Rate FiO2 07/08/17 15:20 54 16 117/78 95 Room Air 07/08/17 15:10 56 16 113/78 93 Room Air 07/08/17 15:00 63 16 120/80 93 Room Air 07/08/17 14:50 54 16 117/77 99 Oxymask 10 07/08/17 14:40 56 16 121/71 99 Oxymask 10 07/08/17 14:34 37 84 16 121/81 99 Oxymask 10 07/08/17 10:48 82 16 95 Room Air 07/08/17 08:18 37.3 108 20 122/76 (91) 99 Room Air Notes Mental Status: alert / awake / arousable, participated in evaluation Pt Amnestic to Procedure: Yes Nausea / Vomiting: adequately controlled, improving with treatment Pain: adequately controlled Airway Patency, RR, SpO2: stable & adequate BP & HR: stable & adequate Hydration State: stable & adequate Anesthetic Complications: no major complications apparent
[2017-07-08] MEDS: CHECK SCOPOLAMINE PATCH PLACEMENT SCH ×2 (16:12→23:28)
[2017-07-08] MEDS: ACETAMINOPHEN/CODEINE 300/30MG TAB PO PRN ×2 (16:23→23:35)
[2017-07-08] MEDS: CEFAZOLIN IV 1,000 MG in SYRINGE 0 ML IV SCH (20:04)
[2017-07-08] MEDS ORDERED: LEVALBUTEROL 1.25MG/0.5ML NEB INH PRN (21:30)
[2017-07-08] MEDS ORDERED: DICLOFENAC SOD 1% GEL 100 GM TUBE EXT PRN (21:30)
[2017-07-08] MEDS: MOMETASONE FUROATE-FORMOTEROL (DULERA) 200mcg/5mcg per inh INH SCH (22:21)
[2017-07-09] MEDS ORDERED: DULERA~ORDER AWAITING ACTION SCH
[2017-07-09 03:50] VITALS: BP 103/65; PULSE 78; TEMP 36.7; O2SAT 95
[2017-07-09] MEDS: CEFAZOLIN IV 1,000 MG in SYRINGE 0 ML IV SCH (05:11)
[2017-07-09] MEDS ORDERED: LEVOTHYROXINE 25 MCG TAB PO SCH (06:00)
[2017-07-09 07:31] VITALS: BP 112/74; PULSE 78; TEMP 36.9; O2SAT 97
[2017-07-09] MEDS: ACETAMINOPHEN/CODEINE 300/30MG TAB PO PRN (07:55)
[2017-07-09] MEDS: CHECK SCOPOLAMINE PATCH PLACEMENT SCH (07:57)
[2017-07-09] MEDS ORDERED: CHOLECALCIFEROL 1000 INTER.UNIT TAB PO SCH (09:00)
[2017-07-09] MEDS ORDERED: TIOTROPIUM BROMIDE 5 PUFF/90 MCG INH INH SCH (09:00)
[2017-07-09] MEDS ORDERED: BUDESONIDE AQ (RHINOCORT AQ) NASAL SPRAY 32 MCG SCH (09:00)
[2017-07-09] MEDS ORDERED: BUDESONIDE 90 MCG INH INH SCH (09:00)
[2017-07-09] MEDS ORDERED: CALCIUM 600MG + VIT D 400 IU TAB PO SCH (09:00)
[2017-07-09] MEDS ORDERED: MULTIVITAMIN TAB PO SCH (09:00)
[2017-07-09] MEDS ORDERED: PANTOprazole SOD 40 MG TAB PO SCH (09:00)
[2017-07-09] MEDS ORDERED: ASCORBIC ACID 500 MG TAB PO SCH (09:00)
[2017-07-09] MEDS ORDERED: OMEGA-3 (PURIFIED FISH OIL) 1 GM CAP PO SCH (09:00)
[2017-07-09] MEDS: MOMETASONE FUROATE-FORMOTEROL (DULERA) 200mcg/5mcg per inh INH SCH (09:18)
[2017-07-09] MEDS ORDERED: AMOX875T PO (10:24)
[2017-07-09] MEDS ORDERED: ACET-749 PO (10:24)
--- NOTE | 2017-07-09 10:25 | Discharge Instructions ---
Discharge Instructions Date of Service Jul 09, 2017. Admission Reason for Admission: Mastoiditis, Chronic Discharge Discharge Diagnosis / Problem: same Discharge Goals Goal(s): Improve function Activity Recommendations Activity Limitations: resume your previous activity . Instructions / Follow-Up Instructions / Follow-Up ACTIVITY RECOMMENDATIONS: No limitations OVER THE COUNTER MEDICATIONS: Continue any other previous medications unless otherwise indicated by your surgeon. * You may use Tylenol for mild pain as per bottle instructions. SPECIAL CARE INSTRUCTIONS: * Keep operative ear dry. * Change cotton balls 4 times per day. Leave packing in ear. * Sneeze with your mouth open. * Do not blow your nose. Sniff back instead. * Please call with any increasing pain, increasing drainage, active bleeding, redness and/or swelling, or any concerns. Dr. Cali's office number is . FOLLOW UP VISIT: If not already scheduled, please call to schedule follow-up appointment with Dr. Cali. Current Hospital Diet Patient's current hospital diet: Gluten Free Diet Discharge Diet Recommended Diet: Regular Diet Procedures Procedures Performed: Right Tympanomastoidectomy; Attempted Balloning Right Eustachian Tube Pending Studies Studies pending at discharge: no Medical Emergencies . Who to Call and When: Medical Emergencies: If at any time you feel your situation is an emergency, please call 911 immediately. . Non-Emergent Contact Non-Emergency issues call your: Primary Care Provider . "Provider Documentation" section prepared by Juanita Cali. . VTE Core Measure Inpt VTE Proph given/why not?: SCD's [place] Drug Monitoring Program Search Results: no issues identified
--- NOTE | 2017-07-09 10:33 | DISCHARGE SUMMARY ---
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 DISCHARGE DIAGNOSIS: Status post tympanomastoidectomy. HISTORY: A 42-year-old with chronic otitis media and perforation of the right ear. The patient returns for a revision of his tympanomastoidectomy from March. HOSPITAL COURSE: The patient was taken to the operating room on 07/08/2017 where he underwent a revision tympanomastoidectomy of the right ear without complication. However, he did have a nosebleed from an attempt at ballooning of the eustachian tube which was easily controlled and dilation of the eustachian tube was not performed. The remainder of the hospital course was benign. The patient is being discharged to home on the postoperative day #1 after observation for 23 hours and will be given prescriptions for Augmentin and for Tylenol with codeine. He is to return for followup in my office in 2 weeks. The and the patient were instructed on the care of the right ear.
[2017-07-09 10:37] VITALS: BP 112/74; PULSE 78; TEMP 36.9; O2SAT 97
[2017-07-09] MEDS ORDERED: DILTIAZEM HCL 60 MG TAB PO SCH (21:00)
[2017-07-09] MEDS ORDERED: MONTELUKAST SOD 10 MG TAB PO SCH (21:00)
== END 2017-07-09 11:15 | disposition home or self-care (01) ==
LOC: C.ACU 07:44 → C.MSW 14:46 → ENRESERV 15:00 → EDBEDREQ 15:22
PROVIDERS: ADMIT Otolaryngology; ATTEND Otolaryngology
DX: H70.11 Chronic mastoiditis, right ear (principal); H72.91 Unspecified perforation of tympanic membrane, right ear; H69.80 Other specified disorders of Eustachian tube, unspecified ear; Z88.2 Allergy status to sulfonamides; Z88.0 Allergy status to penicillin; Z90.89 Acquired absence of other organs; F41.9 Anxiety disorder, unspecified; Q79.6 Ehlers-Danlos syndromes; Z98.890 Other specified postprocedural states
CPT/HCPCS: 69643; C9745

== ENCOUNTER 2017-07-25 14:36 | Inpatient (IN) | payer OTHER ==
[~2017-07-25] VITALS: Ht 188 cm; Wt 68.5 kg
[~2017-07-25 14:36] MED LIST changes: -CMD5 PO; -LVNIS80 SQ; -WARF-246 PO
[2017-07-25 15:44] VITALS: BP 115/75; PULSE 92; TEMP 36.7; O2SAT 97
--- NOTE | 2017-07-25 16:51 | History and Physical ---
History & Physical Date & Time of Service: Jul 25, 2017 at 16:43 Chief Complaint: DVT Primary Care Physician: Barrington Adorno M.D. 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 On July 16 he started noticing a erythematous swollen area on his R momin. He went to see his PCP who put him on bactrim. The area went down in redness and the pain improved a little bit but it continued to be swollen. He was then ordered to go get an ultrasound which he went to get today. The ultrasound showed that he had 3 blood clots. 2 non occlusive clots, one of which is in his left femoral vein, and the other one in his popliteal vein. He also has an occlusive clot in his proximal posterior tibial vein. He was then sent to be a direct admit by Dr. Morrissey who had been following the patients case as an outpatient. He was admitted so that he could be restarted on anticoagulation. He only experiences pain in the area if it is pushed on. He does not have any pain with ambulation. He denies any chest pain, shortness of breath or cough. Of note he had a pulmonary embolism last july after haemorrhoid surgery. He was on Coumadin for 6 months which was stopped in January. 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) Multi-Drug Resistant Organisms History of MDRO: No Allergies Coded Allergies: Gluten (Verified Allergy, Unknown, STOMACH ISSUES, 07/05/17) Ciprofloxacin (Verified Adverse Reaction, Intermediate, issue with legs , 07/05/17) Oxycodone (Verified Adverse Reaction, Mild, GI upset , 07/05/17) Home Medications Scheduled Ascorbic Acid (Vitamin C), 1,000 MG PO DAILY Budesonide (Inhalation) (Pulmicort Flexhaler), 2 PUFFS INH BID Budesonide (Nasal) (Rhinocort Allergy), 2 SPRAYS SIDNEY QAM Calcium/Vitamin D (Os-Tommy 500 Plus D), 600 MG PO BID Cholecalciferol (Vitamin D3), 2,000 INTER.UNIT PO QAM Denosumab (Prolia), 1 DOSE INJ UD Diltiazem Hcl (Cardizem), 60 MG PO HS Fish Oil ([place]-3), 1 CAP PO QAM Levothyroxine Sodium (Synthroid), 25 MCG PO QAM Loratadine (Claritin), 10 MG PO QAM Mometasone Furoate-Formoterol (Dulera 200/5 Mcg), 2 PUFFS INH BID Montelukast Sod (Montelukast Sodium), 10 MG PO QPM Multivitamins/Minerals (Mvi With Minerals), 1 TAB PO QAM Omeprazole (Prilosec), 40 MG PO QAM Tiotropium [place] (Spiriva Handihaler), 1 CAP INH QAM Valacyclovir (Valtrex), 500 MG PO TID Scheduled PRN Acetaminophen/Codeine (Tylenol W/Codeine #3), 1 TAB PO Q4 PRN for Pain Diclofenac Sodium (Topical) (Diclofenac Sodium), 1 DOSE TOP PRN PRN for PRN Levalbuterol Hcl (Levalbuterol), 1 AMP NEB Q4H PRN for SOB/Wheezing Review of Systems Constitutional: No fever, No chills, No sweats, No weight loss, No weakness ENT: No hearing loss, No unusual epistaxis, No sore throat, No trouble swallowing Respiratory: No cough, No sputum, No wheezing, No shortness of breath, No hemoptysis Cardiovascular: No chest pain, No claudication, No palpitations Abdomen: No pain, No nausea, No vomiting, No diarrhea, No constipation Musculoskeletal: No joint pain, No swelling, No calf pain Neurologic: No weakness Hematologic / Lymphatic: + clotting problems, No abnormal bleeding/bruising, No night sweats Integumentary: No rash, No itch, No new/changing skin lesions Physical Exam Vital Signs Date Time Temp Pulse Resp B/P (MAP) Pulse Ox O2 Delivery O2 Flow Rate FiO2 07/25/17 15:44 36.7 92 20 115/75 (88) 97 Room Air General Appearance: WD/WN, no apparent distress, + pertinent finding (skin is translucent and you can see vessels) Head: + pertinent finding (salmon patch on neck) Eyes: PERRL ENT: pharynx normal, + pertinent finding (high arched palate, hearing aid in R ear) Neck: supple, no carotid bruits, trachea midline Respiratory/Chest: lungs clear, no respiratory distress, no accessory muscle use, + pertinent finding (pectus excavatum) Cardiovascular: regular rate, rhythm, no edema, no murmur, normal peripheral pulses Abdomen/GI: normal bowel sounds, non tender, soft Back: normal inspection, no CVA tenderness Extremities/Musculoskelatal: no calf tenderness, no pedal edema, + swelling (L medial shaft of tibia at lower 1/3 there is non erythematous, slighlty raised, non warm area), + pertinent finding (diffuse varicose veins throughout, superficial ulcerations of feet) Neurologic/Psych: alert, normal mood/affect, oriented x 3 Skin: + pertinent finding (translucent skin) Impression Assessment and Plan 42 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 Left lower extremity DVT's - 3 DVT's on ultrasound (1 occlusive, 2 non occlusive) - Will start lovenox subq 1mg/kg - Start warfarin 10mg daily - will ask Mone Parry to find out about NOAC's - hx of DVT's in the past COPD - continue xopenex, pulmincort, spiriva and dulera - follows with Dr. Morrissey as outpatient - patient non smoker and COPD likely due to severe pectus excavatum GERD - continue omeprazole 40mg OD Esophageal Spasm - continue cardizem Asthma/allergies - continue singulair and flonase nasal spray Osteoporosis - prolia, gets injection once every 6 months Polyp in R ear - removed by Dr. Cali earlier this month - continue ofloxacin drops 0.3% 4 drops bid Unknown genetic disease - patient was seen at [facility] 20 years ago and did several tests and did not find out what he had - patient has decided that he does not want a diagnosis therefore will not do any further genetic testing Resident Physician Supervision Note: I interviewed and examined the patient. Discussed with Dr. Abdoul Haines and agree with findings and plan as documented in the note. Any exceptions or clarifications are listed here: None Patient is admitted with DVT with a history of PE. His PE however was social with surgery. This current DVT is associated with some superficial phlebitis of his left lower leg. The patient has been on warfarin in the past and states he prefers that medication is currently without chest pain pleuritic chest pain or dyspnea Vital signs are stable Cardiac exam is regular lungs are clear he doesn't look pectus excavatum deformity His left lower extremity has a walnut size not to the mid tibia residential down his leg he is not have any palpable cords there is varicosities seen on both lower legs there is no edema DVT concern for possible hypercoagulability, patient will have Lovenox overlap with warfarin patient has a home warfarin [id number] testing machine and subsequently we'll pursue this as it is his preference. His respiratory status and anxiety seem to be quiescent at this time continue to follow him during his inpatient course Documented By: Arnaud Ham Level of Care Med/Surg VTE Prophylaxis Risk Level: High Given or contraindicated: Enoxaparin (Lovenox)SQ, Warfarin (Coumadin)
[2017-07-25 17:00] VITALS: O2SAT 98; Ht 188 cm; Wt 68.5 kg
[2017-07-25] MEDS ORDERED: ALUMINUM/MAGNESIUM/SIMETH (MAALOX MAX) 30 ML UDC PO PRN (17:30)
[2017-07-25] MEDS ORDERED: MAGNESIUM HYDROXIDE SUSP 30 ML UDC PO PRN (17:30)
[2017-07-25] MEDS ORDERED: POLYETHYLENE (MIRALAX) 17 GM PACK PO PRN (17:30)
[2017-07-25] MEDS ORDERED: ONDANSETRON INJ 2 MG/ML 2 ML VIAL IV PRN (17:30)
[2017-07-25] MEDS ORDERED: LEVALBUTEROL 1.25MG/0.5ML NEB INH PRN (17:30)
[2017-07-25] MEDS ORDERED: ACETAMINOPHEN 325 MG TAB PO PRN (17:30)
[2017-07-25] MEDS ORDERED: ACETAMINOPHEN/CODEINE 300/30MG TAB PO PRN (17:30)
[2017-07-25] MEDS ORDERED: WARFARIN SOD 10 MG TAB PO ONE (19:15)
[2017-07-25 20:13] LABS: CREATININE 0.91 mg/dl (0.60-1.40)
[2017-07-25] MEDS: ENOXAPARIN 80 MG/0.8 ML SYR SQ SCH (20:42)
[2017-07-25] MEDS: OFLOXACIN 0.3% OP SOLN 5 ML BTL OTR SCH (20:44)
[2017-07-25] MEDS: CALCIUM 600MG + VIT D 400 IU TAB PO SCH (20:45)
[2017-07-25] MEDS: DILTIAZEM HCL 60 MG TAB PO SCH (20:46)
[2017-07-25] MEDS: MONTELUKAST SOD 10 MG TAB PO SCH (20:47)
[2017-07-25] MEDS: LEVALBUTEROL 0.63MG/3 ML NEB INH SCH (21:33)
[2017-07-25 23:45] VITALS: BP 105/64; PULSE 85; TEMP 36.7; O2SAT 97
[2017-07-26] VITALS (7 sets, daily range): BP systolic 99–114; BP diastolic 60–72; PULSE 70–107; TEMP 36.4–36.7; O2SAT 96–99
[2017-07-26] MEDS: LEVOTHYROXINE 25 MCG TAB PO SCH (06:23)
[2017-07-26] MEDS: LEVALBUTEROL 0.63MG/3 ML NEB INH SCH ×2 (07:05→19:00)
[2017-07-26 07:09] LABS: HEMATOCRIT 44.2 % (42-52); MEAN CELL VOLUME 96.1 fL (80-100); MEAN CORPUSCULAR HEMOGLOBIN 31.5 pg (25-34); MEAN CORPUSCULAR HGB CONC 32.8 g/dl (32-36); MEAN PLATELET VOLUME 9.2 fL (7.4-10.4); PLATELET COUNT 171 K/uL (130-400); WHITE BLOOD COUNT 4.57 K/uL (4.8-10.8)
[2017-07-26 07:19] LABS: PROTHROMBIN TIME (PATIENT) 10.4 SECONDS (9.0-12.0)
--- NOTE | 2017-07-26 07:37 | Family Medicine Progress Note ---
Progress Note Date of Service Jul 26, 2017. Subjective Pt evaluation today including: conversation w/ patient, physical exam, chart review, review of inpatient medication list Pain: none PO Intake: good Voiding: no voiding problems Patient feeling well and without any complaints He says he would feel more comfortable staying in the hospital today He denies any pain in his legs, chest pain, or shortness of breath Constitutional: No fever, No chills Respiratory: No cough, No sputum, No shortness of breath, No dyspnea on exertion Cardiovascular: No chest pain, No edema, No palpitations Abdomen: No pain, No nausea, No vomiting, No diarrhea Musculoskeletal: No joint pain, No muscle pain, No swelling, No calf pain Heme: No abnormal bleeding/bruising Skin: No rash, No itch Medications Current Inpatient Medications Medications (Trade) Dose Ordered Sig/Dena Route Start Time Stop Time Status Last Admin Dose Admin Enoxaparin Sodium (Lovenox Inj) 70 mg Q12 SQ 07/25/17 19:00 08/24/17 18:59 07/25/17 20:42 70 MG Warfarin Sodium (Coumadin Tab) 10 mg DAILY@16 PO 07/26/17 16:00 08/25/17 15:59 Acetaminophen/ Codeine Phosphate (Tylenol w/ Codeine #3 Tab) 1 tab Q4 PRN PO 07/25/17 17:30 08/24/17 17:29 Ascorbic Acid (Vitamin C Tab) 1,000 mg DAILY PO 07/26/17 08:00 08/25/17 07:59 Budesonide (Rhinocort Aq Nasal [place]) 2 sprays QAM SIDNEY 07/26/17 08:00 08/25/17 07:59 Calcium/Vitamin D (Caltrate Plus Tab) 1 tab BID PO 07/25/17 20:00 08/24/17 19:59 07/25/17 20:45 1 TAB Diltiazem HCl (Cardizem Tab) 60 mg HS PO 07/25/17 21:00 08/24/17 20:59 07/25/17 20:46 60 MG Levalbuterol (Xopenex 1.25MG/ 0.5ML Neb) 1.25 mg Q4H PRN INH 07/25/17 17:30 08/24/17 17:29 Levothyroxine Sodium (Synthroid Tab) 25 mcg DAILYBB PO 07/26/17 06:30 08/25/17 06:29 07/26/17 06:23 25 MCG Loratadine (Claritin Tab) 10 mg QAM PO 07/26/17 08:00 08/25/17 07:59 Montelukast Sodium (Singulair Tab) 10 mg QPM PO 07/25/17 21:00 08/24/17 20:59 07/25/17 20:47 10 MG Multivitamins/ Minerals (Multivitamin W/ Minerals Tab) 1 tab QAM PO 07/26/17 08:00 08/25/17 07:59 Tiotropium [place] (Spiriva Handihaler Inhaler) 30 puff QAM INH 07/26/17 08:00 08/25/17 07:59 Valacyclovir HCl (Valtrex Tab) 500 mg TID PO 07/25/17 20:00 08/04/17 19:59 07/25/17 20:46 500 MG Cholecalciferol (Vitamin D Tab) 2,000 inter.unit QAM PO 07/26/17 08:00 08/25/17 07:59 Pantoprazole Sodium (Protonix Tab) 40 mg QAM PO 07/26/17 08:00 08/24/17 07:59 Ofloxacin (Ocuflox 0.3% Oph Soln) 4 drops BID OTR 07/25/17 20:00 08/04/17 19:59 07/25/17 20:44 4 DROPS Acetaminophen (Tylenol Tab) 650 mg Q4H PRN PO 07/25/17 17:30 08/24/17 17:29 Al Hydrox/Mg Hydrox/Simethicone (Maalox Max Susp) 15 ml Q4H PRN PO 07/25/17 17:30 08/24/17 17:29 Magnesium Hydroxide (Milk Of Magnesia Susp) 30 ml Q6H PRN PO 07/25/17 17:30 08/24/17 17:29 Polyethylene (Miralax Powder Packet) 17 gm DAILY PRN PO 07/25/17 17:30 08/24/17 17:29 Ondansetron HCl (Zofran Inj) 4 mg Q6H PRN IV 07/25/17 17:30 08/24/17 17:29 Prednisone (PredniSONE TAB) 10 mg DAILY PO 07/26/17 08:00 07/28/17 07:59 Levalbuterol (Xopenex 0.63 Mg/ 3 Ml Neb) 0.63 mg BIDR INH 07/25/17 20:00 18 19:59 07/26/17 07:05 0.63 MG Mometasone Furoate/ Formoterol Fumar (Dulera) 2 ea BID INH 07/25/17 20:00 08/24/17 19:59 07/25/17 21:19 2 EA Budesonide (Pulmicort Inhaler) 4 puffs BID INH 07/26/17 08:00 08/24/17 21:44 Objective Vital Signs Date Time Temp Pulse Resp B/P (MAP) Pulse Ox O2 Delivery O2 Flow Rate FiO2 07/26/17 07:09 77 16 98 07/26/17 07:03 36.4 70 16 112/72 (85) 99 07/26/17 00:00 Room Air 07/25/17 23:45 36.7 85 20 105/64 (78) 97 Room Air 07/25/17 17:00 98 Room Air 07/25/17 15:44 36.7 92 20 115/75 (88) 97 Room Air Physical Exam Notes: General Appearance: WD/WN, no apparent distress, + pertinent finding (skin is translucent and you can see vessels) Head: + pertinent finding (salmon patch on neck) Eyes: PERRL ENT: pharynx normal, + pertinent finding (high arched palate, hearing aid in R ear) Neck: supple, no carotid bruits, trachea midline Respiratory/Chest: lungs clear, no respiratory distress, no accessory muscle use, + pertinent finding (pectus excavatum) Cardiovascular: regular rate, rhythm, no edema, no murmur, normal peripheral pulses Abdomen/GI: normal bowel sounds, non tender, soft Back: normal inspection, no CVA tenderness Extremities/Musculoskelatal: no calf tenderness, no pedal edema, + swelling (L medial shaft of tibia at lower 1/3 there is non erythematous, slighlty raised, non warm area), + pertinent finding (diffuse varicose veins throughout, superficial ulcerations of feet) Neurologic/Psych: alert, normal mood/affect, oriented x 3 Skin: + pertinent finding (translucent skin) Laboratory Results Results Past 24 Hours Test 07/25/17 19:17 07/26/17 06:48 Range/Units Creatinine 0.91 0.60-1.40 mg/dl Est Creatinine Clear Calc Drug Dose 101.4 ml/min Estimated GFR () 119.2 Estimated GFR (Non- 102.9 White Blood Count 4.57 4.8-10.8 K/uL Red Blood Count 4.60 4.7-6.1 M/uL Hemoglobin 14.5 14.0-18.0 g/dL Hematocrit 44.2 42-52 % Mean Corpuscular Volume 96.1 80-100 fL Mean Corpuscular Hemoglobin 31.5 25-34 pg Mean Corpuscular Hemoglobin Concent 32.8 32-36 g/dl RDW Standard Deviation 54.5 36.4-46.3 fL RDW Coefficient of Variation 15.7 11.5-14.5 % Platelet Count 171 130-400 K/uL Mean Platelet Volume 9.2 7.4-10.4 fL Prothrombin Time 10.4 9.0-12.0 SECONDS Prothromb Time International Ratio 1.0 0.9-1.1 Assessment and Plan 42 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 Left lower extremity DVT's - 3 DVT's on ultrasound (1 occlusive, 2 non occlusive) - Will start lovenox subq 1mg/kg - Started warfarin 10mg daily - INR 1.0 today - Patient has an INR monitor at home so is able to monitor from home and dose accordingly - hx of DVT's in the past COPD - continue xopenex, pulmincort, spiriva and dulera - follows with Dr. Morrissey as outpatient - patient non smoker and COPD likely due to severe pectus excavatum GERD - continue omeprazole 40mg OD Esophageal Spasm - continue cardizem Asthma/allergies - continue singulair and flonase nasal spray Osteoporosis - prolia, gets injection once every 6 months Polyp in R ear - removed by Dr. Cali earlier this month - continue ofloxacin drops 0.3% 4 drops bid Unknown genetic disease - patient was seen at [facility] 20 years ago and did several tests and did not find out what he had - patient has decided that he does not want a diagnosis therefore will not do any further genetic testing Dispo: likely home tomorrow after one more day of anticoagulation Resident Physician Supervision Note: I interviewed and examined the patient. Discussed with Dr. Abdoul Haines and agree with findings and plan as documented in the note. Any exceptions or clarifications are listed here: None Patient is admitted with DVT with a history of PE. His PE however was associated with surgery. This current DVT is associated with some superficial phlebitis of his left lower leg. The patient has been on warfarin in the past and reconfirms that he prefers that medication he states he has a portable INR testing machine that he can even use during travel, as he travels frequently with his [employer]iscopalian Vital signs remain stable Cardiac exam is regular lungs are clear His left lower extremity has a minory tender likley superficial thrombus mid tibia half-way down his leg there are varicosities seen on both lower legs there remains to be no edema DVT concern for possible hypercoagulability, patient will have Lovenox overlap with warfarin patient has a home warfarin [id number] testing machine and subsequently we'll pursue this as it is his preference. His respiratory status remains stable, anticipate discharge on lovenox overlap with coumdain Documented By: Arnaud Ham Continued [facility] stay due to: other Discharge planning: home
[2017-07-26] MEDS: BUDESONIDE AQ (RHINOCORT AQ) NASAL SPRAY 32 MCG NAE SCH (08:00)
[2017-07-26] MEDS: OFLOXACIN 0.3% OP SOLN 5 ML BTL OTR SCH ×2 (08:00→20:19)
[2017-07-26] MEDS: ENOXAPARIN 80 MG/0.8 ML SYR SQ SCH ×2 (08:15→20:21)
[2017-07-26] MEDS: CHOLECALCIFEROL 1000 INTER.UNIT TAB PO SCH (08:17)
[2017-07-26] MEDS: ASCORBIC ACID 500 MG TAB PO SCH (08:17)
[2017-07-26] MEDS: CEROVITE ADV FORMULA TAB PO SCH (08:17)
[2017-07-26] MEDS: CALCIUM 600MG + VIT D 400 IU TAB PO SCH ×2 (08:17→20:19)
[2017-07-26] MEDS: LORATADINE 10 MG TAB PO SCH (08:17)
[2017-07-26] MEDS: PANTOprazole SOD 40 MG TAB PO SCH (08:18)
[2017-07-26] MEDS: TIOTROPIUM BROMIDE 5 PUFF/90 MCG INH INH SCH (08:19)
[2017-07-26] MEDS: BUDESONIDE 90 MCG INH INH SCH ×2 (08:57→20:19)
[2017-07-26] MEDS: WARFARIN SOD 5 MG TAB PO SCH (15:50)
[2017-07-26] MEDS: DILTIAZEM HCL 60 MG TAB PO SCH (20:21)
[2017-07-26] MEDS: MONTELUKAST SOD 10 MG TAB PO SCH (20:21)
[2017-07-27] MEDS: LEVOTHYROXINE 25 MCG TAB PO SCH (05:42)
[2017-07-27 05:48] LABS: INR 1.3 (0.9-1.1)
[2017-07-27 07:25] VITALS: BP 105/72; PULSE 86; TEMP 36.7; O2SAT 97
[2017-07-27 07:35] VITALS: PULSE 95; O2SAT 97
[2017-07-27] MEDS: LEVALBUTEROL 0.63MG/3 ML NEB INH SCH (07:35)
[2017-07-27 08:30] VITALS: O2SAT 97
[2017-07-27] MEDS: BUDESONIDE 90 MCG INH INH SCH (08:31)
[2017-07-27] MEDS: OFLOXACIN 0.3% OP SOLN 5 ML BTL OTR SCH (08:32)
[2017-07-27] MEDS: BUDESONIDE AQ (RHINOCORT AQ) NASAL SPRAY 32 MCG NAE SCH (08:32)
[2017-07-27] MEDS: CALCIUM 600MG + VIT D 400 IU TAB PO SCH (08:33)
[2017-07-27] MEDS: CEROVITE ADV FORMULA TAB PO SCH (08:33)
[2017-07-27] MEDS: PANTOprazole SOD 40 MG TAB PO SCH (08:33)
[2017-07-27] MEDS: CHOLECALCIFEROL 1000 INTER.UNIT TAB PO SCH (08:34)
[2017-07-27] MEDS: LORATADINE 10 MG TAB PO SCH (08:34)
[2017-07-27] MEDS: ASCORBIC ACID 500 MG TAB PO SCH (08:34)
[2017-07-27] MEDS: ENOXAPARIN 80 MG/0.8 ML SYR SQ SCH (08:35)
[2017-07-27] MEDS: TIOTROPIUM BROMIDE 5 PUFF/90 MCG INH INH SCH (09:54)
--- NOTE | 2017-07-27 12:52 | Discharge Instructions ---
Discharge Instructions Date of Service Jul 27, 2017. Admission Reason for Admission: DVT Discharge Discharge Diagnosis / Problem: DVT Discharge Goals Goal(s): Therapeutic intervention, Prevent Disease Progression Activity Recommendations Activity Limitations: per Instructions/Follow-up section . Instructions / Follow-Up Instructions / Follow-Up You were found to have 3 DVT's in your left leg We are treating you with warfarin and lovenox injections We will be sending lovenox injections to your pharmacy as well as warfarin You will need to use your lovenox injections twice daily until your INR is >2 Please check your INR daily at the same time and send the results to Dr. Unger office if you experience any shortness of breath, chest pain or persistent cough then please come back to the emergency department Please follow up with your PCP jacy seymour Current Hospital Diet Patient's current hospital diet: Regular Diet, Gluten Free Diet Discharge Diet Recommended Diet: Regular Diet Pending Studies Studies pending at discharge: no Medical Emergencies . Who to Call and When: Medical Emergencies: If at any time you feel your situation is an emergency, please call 911 immediately. . Non-Emergent Contact Non-Emergency issues call your: Primary Care Provider, Patient Transport Orderly . . "Provider Documentation" section prepared by Abdoul Haines. . VTE Core Measure Inpt VTE Proph given/why not?: Enoxaparin (Lovenox)SQ, Warfarin (Coumadin)
[2017-07-27] MEDS ORDERED: LVNIS80 SQ (12:54)
[2017-07-27] MEDS ORDERED: CMD5 PO (12:54)
[2017-07-27] MEDS ORDERED: WARF-246 PO (13:24)
[2017-07-27 14:02] VITALS: BP 105/72; PULSE 95; TEMP 36.7; O2SAT 97
[2017-07-27] MEDS ORDERED: WARFARIN SOD 10 MG TAB PO ONE (14:15)
[2017-07-27] MEDS: WARFARIN SOD 5 MG TAB PO SCH (14:22)
--- NOTE | 2017-07-27 16:12 | Discharge Summary ---
Discharge Summary Date of Service Jul 27, 2017. Discharge Summary Admission Date: Jul 25, 2017 at 15:25 Discharge Date: Jul 27, 2017 Discharge Disposition: Home Principal Diagnosis: DVT Medication Reconciliation New Medications: Warfarin Sodium (Warfarin Sodium) 5 Mg Tab 1 TAB PO DAILY for 30 Days, #30 TAB 5 Refills Enoxaparin (Lovenox) 80 Mg/0.8 Ml Inj 70 MG SQ Q12 for 7 Days, #14 SYR Continued Medications: Acetaminophen/Codeine (Tylenol W/Codeine #3) 300 Mg/30 Mg Tab 1 TAB PO Q4 PRN for Pain, #30 TAB Ascorbic Acid (Vitamin C) 500 Mg Tab 1000 MG PO DAILY Budesonide (Inhalation) (Pulmicort Flexhaler) 180 Mcg/Act Inh 2 PUFFS INH BID for 30 Days, #1 INHALER 6 Refills Budesonide (Nasal) (Rhinocort Allergy) 32 Mcg/Act [place] 2 SPRAYS SIDNEY QAM Calcium/Vitamin D (Os-Tommy 500 Plus D) Tab 600 MG PO BID, TAB Cholecalciferol (Vitamin D3) 2,000 Unit Cap 2000 INTER.UNIT PO QAM Denosumab (Prolia) 60 Mg/1 Ml Inj 1 DOSE INJ UD Diclofenac Sodium (Topical) (Diclofenac Sodium) 1 % Gel 1 DOSE TOP PRN PRN for PRN Diltiazem Hcl (Cardizem) 60 Mg Tab 60 MG PO HS, TAB Fish Oil ([place]-3) 1 Ea Cap 1 CAP PO QAM, CAP Levalbuterol Hcl (Levalbuterol) 1.25 Mg/0.5 Ml Neb 1 AMP NEB Q4H PRN for SOB/Wheezing Levothyroxine Sodium (Synthroid) 25 Mcg Tab 25 MCG PO QAM, TAB Loratadine (Claritin) 10 Mg Tab 10 MG PO QAM, 0 Refills Mometasone Furoate-Formoterol (Dulera 200/5 Mcg) 1 Aer Aer 2 PUFFS INH BID Montelukast Sod (Montelukast Sodium) 10 Mg Tab 10 MG PO QPM Multivitamins/Minerals (Mvi With Minerals) Tab 1 TAB PO QAM, TAB Omeprazole (Prilosec) 20 Mg Capcr 40 MG PO QAM, 0 Refills Tiotropium [place] (Spiriva Handihaler) 30 Puff/540 Mcg Aerp 1 CAP INH QAM, INHALER Valacyclovir (Valtrex) 500 Mg Tab 500 MG PO TID, TAB TAKING FOR SHINGLES ON LEFT SIDE OF BACK -- DIAGNOSED 06/29/17 Discharge Exam Patient with some mild left calf pain when walking yesterday which has resolved Denies any chest pain, shortness of breath or palpitations Is wondering if we can send warfarin prescription to [facility] as it is cheaper for them Instructions given on how to check INR Patient did have ear surgery with Dr. Cali recently and this would then likely be a provoked DVT Review of Systems: Constitutional: No fever, No chills, No fatigue Respiratory: No cough, No sputum, No shortness of breath, No dyspnea on exertion, No hemoptysis Cardiovascular: No chest pain, No edema, No palpitations Abdomen: No pain, No nausea, No vomiting Musculoskeletal: + calf pain, No joint pain, No swelling Hematologic / Lymphatic: No abnormal bleeding/bruising Integumentary: No rash, No itch Physical Exam: General Appearance: WD/WN, no apparent distress Eyes: PERRL ENT: pharynx normal, + pertinent finding (high arched palate) Neck: supple, thyroid normal, no JVD, no carotid bruits, trachea midline Respiratory/Chest: lungs clear, no respiratory distress, no accessory muscle use, + pertinent finding (pectus excavatum) Cardiovascular: regular rate, rhythm, no murmur, normal peripheral pulses Abdomen / GI: normal bowel sounds, non tender, soft Extremities: no calf tenderness, no pedal edema, + pertinent finding ( prominent veins present, small bump along medial aspect of left tibia, non tender and non erythematous) Neurologic/Psychiatric: alert, normal mood/affect, oriented x 3 Hospital Course 42 year old male with unknown genetic disease that was a direct admit for 3 DVT' s found in his left leg and is being admitted for re-initiation of anticoagulation therapy. Left lower extremity DVT's - 3 DVT's on ultrasound (1 occlusive, 2 non occlusive) - Started lovenox subq 1mg/kg - Started warfarin 10mg daily - INR 1.3 on day of discharge - this is the second provoked DVT for patient - discharged on 5mg warfarin, told to monitor INR at home daily - patient will take home lovenox 70mg subq until 2 days after INR is >2 - will phone in INR results to Dr. Yuni, will organize INR monitoring over the weekend - hx of DVT's in the past COPD - continue xopenex, pulmincort, spiriva and dulera - follows with Dr. Morrissey as outpatient - patient non smoker and lung issues likely due to patients pectus deformity GERD - continue omeprazole 40mg OD Esophageal Spasm - continue cardizem Asthma/allergies - continue singulair and flonase nasal spray Osteoporosis - prolia, gets injection once every 6 months Polyp in R ear - removed by Dr. Cali earlier this month - continue ofloxacin drops 0.3% 4 drops bid Unknown genetic disease - patient was seen at [facility] 20 years ago and did several tests and did not find out what he had - patient has decided that he does not want a diagnosis therefore will not do any further genetic testing Total Time Spent: Less than 30 minutes This includes examination of the patient, discharge planning, medication reconciliation, and communication with other providers. Discharge Instructions Please refer to the electronic Patient Visit Report (Discharge Instructions) for additional information. Additional Copies To Barrington Adorno M.D.; Cesar Morrissey M.D.
== END 2017-07-27 15:00 | disposition home or self-care (01) | DRG 301 ==
LOC: C.4E 15:25
PROVIDERS: ADMIT Family Medicine; ATTEND Internal Medicine
DX: I82.441 Acute embolism and thrombosis of right tibial vein (principal); I82.411 Acute embolism and thrombosis of right femoral vein; I82.431 Acute embolism and thrombosis of right popliteal vein; I80.01 Phlebitis and thrombophlebitis of superficial vessels of right lower extremity; J45.909 Unspecified asthma, uncomplicated; J44.9 Chronic obstructive pulmonary disease, unspecified; K21.9 Gastro-esophageal reflux disease without esophagitis; Q67.6 Pectus excavatum; M81.0 Age-related osteoporosis without current pathological fracture; K22.4 Dyskinesia of esophagus; Z79.899 Other long term (current) drug therapy; Z86.711 Personal history of pulmonary embolism

== ENCOUNTER → 2017-07-25 | Outpatient (CLI) | payer OTHER ==
[~2017-07-25] MED LIST changes: +ACET-749 PO; -CEFAZOLIN 2000MG IV PUSH 10 ML IV SCH; +CMD5 PO; -LACTATED RINGER'S 1000ML 1,000 ML IV SCH; -LEVA45AE INH; +LVNIS80 SQ; +WARF-246 PO
--- NOTE | 2017-07-25 13:35 | DIAGNOSTIC IMAGING REPORT ---
VENOUS DOPP LOWER EXT UNILAT HISTORY: 42 years-old Male BRUISING, DVT acute bruising of the right lower extremity with DVT COMPARISON: Ultrasound of the left lower extremity of same day at 10:17 AM TECHNIQUE: Multiple real-time sonographic images of the left lower extremity were obtained assessing grayscale appearance, color and spectral flow FINDINGS: The left external iliac vein and common femoral vein appear normal. Nonocclusive thrombus involves the femoral vein with echogenic stranding. Additional nonocclusive thrombus involves the popliteal vein which is noted along the periphery of the vessel. Occlusive deep venous thrombosis involves the proximal and midportion of one of the 2 posterior tibial veins. The peroneal veins appear patent, however not well seen. IMPRESSION: 1. Nonocclusive deep venous thrombosis involves the femoral and popliteal veins. 2. Occlusive deep venous thrombosis involves one of the two posterior tibial veins. The above report was generated using voice recognition software. It may contain grammatical, syntax or spelling errors. Electronically signed by: Loco Moody M.D. 07/25/2017 1:34 PM Dictated Date/Time: 07/25/2017 1:31 PM
== END | disposition home or self-care (01) ==
LOC: C.ULTR 12:29
PROVIDERS: ATTEND Internal Medicine Pulmonary Disease
DX: I82.401 Acute embolism and thrombosis of unspecified deep veins of right lower extremity (principal); T14.8XXA Other injury of unspecified body region, initial encounter; X58.XXXA Exposure to other specified factors, initial encounter

== ENCOUNTER → 2017-07-25 | Outpatient (CLI) | payer OTHER ==
--- NOTE | 2017-07-25 11:04 | DIAGNOSTIC IMAGING REPORT ---
EXTREMITY NONVASCULAR LIMITED HISTORY: 42 years-old Male SUBCUTANEOUS ABCESS,TENDER NODULE ON LEFT LOWER LEG L02.91 COMPARISON: Left tibia and fibula radiographs 06/26/2017 TECHNIQUE: Multiple real-time sonographic images of the left leg were obtained assessing grayscale appearance and color flow FINDINGS: Echogenic occlusive thrombus is noted within superficial varices of the medial calf at the area of concern. Additionally, there is occlusive thrombus noted within the adjacent posterior tibial vein where the superficial veins drain into demonstrating no color or spectral flow. No soft tissue abscess or drainable fluid collection of the lower leg. Mild soft tissue edema. IMPRESSION: Occlusive deep venous thrombosis of the posterior tibial vein with adjacent superficial venous thrombosis of adjacent varices. Findings were discussed with Dr. Morrissey on 07/25/2017 at 11:02 AM The above report was generated using voice recognition software. It may contain grammatical, syntax or spelling errors. Electronically signed by: Loco Moody M.D. 07/25/2017 11:03 AM Dictated Date/Time: 07/25/2017 10:58 AM
== END | disposition home or self-care (01) ==
LOC: C.ULTR 10:10
PROVIDERS: ATTEND Internal Medicine
DX: L02.91 Cutaneous abscess, unspecified (principal)

== ENCOUNTER → 2017-08-04 | Outpatient (CLI) | payer OTHER ==
[~2017-08-04] MED LIST changes: +LVNIS80 SQ; +OPTIRAY 320 IV PRN; +WARF-246 PO
--- NOTE | 2017-08-04 15:25 | DIAGNOSTIC IMAGING REPORT ---
(CHEST FOR PE) ANGIO WITH CT DOSE: 393.38 mGycm HISTORY: Chest pain dyspnea TECHNIQUE: Multiaxial CT images of the chest were performed following the intravenous administration of contrast to evaluate the pulmonary arteries. Maximal intensity projection images were also obtained. A dose lowering technique was utilized adhering to the principles of ALARA. COMPARISON STUDY: 06/23/2017 FINDINGS: There is a normal caliber thoracic aorta with no evidence for dissection. There is no evidence for pulmonary embolus. No pleural effusions. No pneumothorax. The liver and spleen are unremarkable. No mediastinal or hilar lymphadenopathy. The central airways are patent. The lungs are clear. Pectus deformity of the chest. Subtle interstitial prominence considered chronic in this patient. IMPRESSION: No evidence for pulmonary embolus. The above report was generated using voice recognition software. It may contain grammatical, syntax or spelling errors. Electronically signed by: Rambo Chapman M.D. 08/04/2017 3:23 PM Dictated Date/Time: 08/04/2017 3:21 PM
== END | disposition home or self-care (01) ==
LOC: C.CTS 14:52
PROVIDERS: ATTEND Internal Medicine Pulmonary Disease
DX: I26.99 Other pulmonary embolism without acute cor pulmonale (principal)

== ENCOUNTER → 2017-08-11 | Outpatient (CLI) | payer OTHER ==
[~2017-08-11] MED LIST changes: -ACET-749 PO; +ACET300T3 PO; +IPRA-64 INH; +LEVA45AE PO; -OPTIRAY 320 IV PRN; +PRED10TA PO; +WARF5TAB7 PO
[2017-08-11 16:34] LABS: BASO % 0.4 %; BASO ABS # 0.02 K/uL (0-0.2); EOS % 0.2 %; EOS ABS # 0.01 K/uL (0-0.5); HEMATOCRIT 44.7 % (42-52); HEMOGLOBIN 14.3 g/dL (14.0-18.0); IG# 0.12 K/uL (0.00-0.02); LYMPH % 10.2 %; LYMPH ABS # 0.58 K/uL (1.2-3.4); MEAN CELL VOLUME 98.7 fL (80-100); MEAN CORPUSCULAR HEMOGLOBIN 31.6 pg (25-34); MEAN PLATELET VOLUME 10.2 fL (7.4-10.4); MONO % 5.5 %; MONO ABS # 0.31 K/uL (0.11-0.59); NEUT % 81.6 %; NEUT ABS # 4.64 K/uL (1.4-6.5); PLATELET COUNT 180 K/uL (130-400); RED CELL DISTRIBUTION WIDTH CV 16.1 % (11.5-14.5); RED CELL DISTRIBUTION WIDTH SD 58.6 fL (36.4-46.3); WHITE BLOOD COUNT 5.68 K/uL (4.8-10.8)
[2017-08-11 16:42] LABS: INR 1.8 (0.9-1.1); PTT PATIENT 28.2 SECONDS (21.0-31.0)
[2017-08-11 17:57] LABS: ALT/SGPT 76 U/L (12-78); BLOOD UREA NITROGEN 13 mg/dl (7-18); CARBON DIOXIDE 29 mmol/L (21-32); CREATININE 0.76 mg/dl (0.60-1.40); GLUCOSE 110 mg/dl (70-99); POTASSIUM 4.7 mmol/L (3.5-5.1); SODIUM 142 mmol/L (136-145)
[2017-08-11 17:59] LABS: ALKALINE PHOSPHATASE 57 U/L (45-117); AST/SGOT 14 U/L (15-37); TOTAL PROTEIN 7.6 gm/dl (6.4-8.2)
== END | disposition home or self-care (01) ==
LOC: C.LAB1850 14:18
PROVIDERS: ATTEND Internal Medicine Pulmonary Disease
DX: J47.9 Bronchiectasis, uncomplicated (principal)

== ENCOUNTER 2017-08-16 07:15 | Day surgery (SDC) | payer OTHER ==
--- NOTE | 2017-08-15 16:50 | History and Physical ---
History & Physical Date of Service Aug 15, 2017. History & Physical 42 y/o male presents for bronchoscopy with conscious sedation and BAL for dyspnea refractory to antibiotics, prednisone, and inhalers/nebulizers. The patient has a PmHx: Bronchiectasis, DVT/PE, multiple pneumonias, aspiration pneumonia and pectus excavatum Thai returns today feeling very poorly. Feels congested and has an inability to expectorate. He is also complaining that his left knee is painful as well as the left calf area. His Coumadin was recently adjusted to 10 milligrams on Tuesday and Tuesday and 7.5 milligrams daily. Protime to next Tuesday. The left lower extremity shows the 1 area of superficial thrombophlebitis/significantly resolved with only minimal tenderness and I cannot appreciate a synovial effusion or bursitis with associated swelling. Visually patient is tachypneic and mildly tachycardiac both excellent O2 saturation and no audible wheezing but with diminished breath sounds. He has been on prednisone and round the clock aerosolized bronchodilator and states he has had no clinical improvement. PmHx: 1. Acute contact otitis externa 2. Acute sinusitis 3. Anxiety 4. Aspiration pneumonia 5. Asthma 6. Back pain 7. Bronchiectasis 8. Bruising 9. Chronic deep vein thrombosis of popliteal vein 10. Chronic reflux esophagitis 11. Dizziness 12. Esophageal spasm 13. Eustachian tube dysfunction, bilateral hearing loss, Otitis media 14. Herpes zoster 15. History of wrist fracture 16. Hypothyroidism 17. Left serous otitis media 18. Low back pain 19. Malaria 20. Mineral deficiency 21. Oral thrush 22. Osteoporosis 23. Otorrhea of right ear 24. Pectus excavatum 25. Pulmonary emboli 26. Quadriceps tendonitis 27. Right otitis externa 28. Scoliosis 29. Subcutaneous abscess 30. Venous insufficiency 31. Vitamin D deficiency 32. Witnessed apneic spells 33. History of typhoid fever Surgical History 1. History of Cataract Surgery 2. History of Ear Surgery 3. History of Hemorrhoidectomy 4. Need for DTP vaccine (Z23) 5. History of tympanomastoidectomy Family History 1. Family history of osteoporosis 2. Family history of coronary artery disease 3. Family history of prostate cancer 4. Family history of Colon cancer Social History Denied: History of Alcohol use Denied: History of Chews tobacco Denied: History of Drug use Marital History - Currently Never smoker No secondhand smoke exposure Occupation: Current Meds 1. Loratadine Allergy Relief 10 MG TBDP; TAKE 1 TABLET DAILY DIRECTED; 2. Budesonide 32 MCG/ACT Nasal Suspension; USE 2 SPRAYS IN EACH NOSTRIL ONCE 3. DilTIAZem HCl - 60 MG Oral Tablet; TAKE (1) TABLET DAILY Requested for: [id number]; 4. Levalbuterol HCl - 1.25 MG/3ML Inhalation Nebulization Solution; USE 1 UNIT DOSE IN NEBULIZER EVERY 4 TO 6 HOURS NEEDED 5. Levalbuterol Tartrate 45 MCG/ACT Inhalation Aerosol; INHALE 2 PUFFS EVERY 4 HOURS NEEDED; 6. Vortex Valved Holding Chamber Device; TO USE WITH INHALER 7. Dulera 200-5 MCG/ACT Inhalation Aerosol; INHALE 2 PUFFS, BY MOUTH, TWICE DAILY. RINSE MOUTH AFTER USE 8. Ipratropium-Albuterol 0.5-2.5 (3) MG/3ML Inhalation Solution; USE 1 UNIT DOSE IN NEBULIZER 4 TIMES DAILY 9. Montelukast Sodium 10 MG Oral Tablet; TAKE 1 TABLET DAILY 10. Pulmicort Flexhaler 180 MCG/ACT Inhalation Aerosol Powder Breath Activated; INHALE 2 PUFFS, BY MOUTH, TWICE DAILY. 11. Diclofenac Sodium 1 % Transdermal Gel; APPLY 4 GRAMS TO AFFECTED AREA TWICE A DAY 12. PredniSONE 10 MG Oral Tablet; Start by taking 4 pills daily for 2 days and then decrease 13. Warfarin Sodium 2.5 MG Oral Tablet; TAKE 1 TABLET DAILY WITH 5 MG TABLETS 14. Omeprazole 40 MG Oral Capsule Delayed Release; TAKE 1 CAPSULE Daily 15. Fish Oil 1200 MG Oral Capsule; TAKE 1 CAPSULE Daily 16. Multi-Vitamin TABS; TAKE 1 TABLET DAILY 17. Vitamin C 500 MG Oral Tablet; TAKE 2 TABLET Daily 18. Levothyroxine Sodium 25 MCG Oral Tablet; TAKE 1 TABLET DAILY DIRECTED 19. BD Pen Needle Mini U/F 31G X 5 MM; 1 injection per day for use with the Forteo pen; 20. Prolia 60 MG/ML Subcutaneous Solution; INJECT 1 SYRINGE *60MG* SUBCUTANEOUSLY EVERY 6 MONTHS 21. Calcium + D TABS; Take 1 tablet BID 22. Vitamin D 2000 UNIT Oral Capsule; TAKE 1 CAPSULE Daily 23. EpiPen 2-Dustin 0.3 MG/0.3ML ANN; USE DIRECTED; 24. Warfarin Sodium 5 MG Oral Tablet; take 1 tablet daily for 30 days Allergies 1. Percocet TABS 2. Cipro TABS Immunizations Influenza --- Series1: 2010; Series2: 22-Aug-2012; Series3: Jul 2016; Series4: 21-Jun-2017 PPSV --- Series1: 13-May-2011 PPD --- Series1: 17-Dec-2016 Tdap --- Series1: 22-Feb-2013; Series2: 22-Feb-2013 Vital Signs Blood Pressure: 122 / 84, LUE, Sitting Height: 6 ft 1 in Weight: 141 lb 6 oz BMI Calculated: 18.65 BSA Calculated: 1.86 O2 Saturation: 97, RA Temperature: 98.3 F Respiration: 20 Heart Rate: 99 Physical Exam Constitutional General appearance: No acute distress, well appearing and well nourished. Eyes Conjunctiva and lids: No swelling, erythema, or discharge. Pupils and irises: Equal, round and reactive to light. Ears, Nose, Mouth, and Throat External inspection of ears and nose: Normal. Otoscopic examination: Tympanic membrance translucent with normal light reflex. Canals patent without erythema. Oropharynx: Normal with no erythema, edema, exudate or lesions. Pulmonary Respiratory effort: No increased work of breathing or signs of respiratory distress. Auscultation of lungs: Clear to auscultation. Cardiovascular Palpation of heart: Normal PMI, no thrills. Auscultation of heart: Normal rate and rhythm, normal S1 and S2, without murmurs. Examination of extremities for edema and/or varicosities: Normal. Abdomen Abdomen: Non-tender, no masses. Liver and spleen: No hepatomegaly or splenomegaly. Lymphatic Palpation of lymph nodes in neck: No lymphadenopathy. Musculoskeletal Gait and station: Normal. Digits and nails: Normal without clubbing or cyanosis. Inspection/palpation of joints, bones, and muscles: Normal. Skin Skin and subcutaneous tissue: Normal without rashes or lesions. Neurologic Cranial nerves: Cranial nerves 2-12 intact. Reflexes: 2+ and symmetric. Sensation: No sensory loss. Psychiatric Orientation to person, place and time: Normal. Mood and affect: Normal.
[~2017-08-16] VITALS: Ht 188 cm; Wt 73.5 kg
[~2017-08-16 07:15] MED LIST changes: +ACET-749 PO; -ACET300T3 PO; -IPRA-64 INH; -LEVA45AE PO; -PRED10TA PO; -WARF5TAB7 PO
[2017-08-16] MEDS ORDERED: IPRASOL4 INH (07:56)
[2017-08-16 08:01] VITALS: BP 127/64; PULSE 88; TEMP 37.1; O2SAT 96; Ht 188 cm; Wt 73.5 kg
[2017-08-16] MEDS ORDERED: PRED10TA PO (08:29)
--- NOTE | 2017-08-16 09:09 | Pre Sedation Assessment ---
Pre Sedation Assessment General Date of Sedation: Aug 16, 2017. Vital Signs Past 12 Hours Date Time Temp Pulse Resp B/P (MAP) Pulse Ox O2 Delivery O2 Flow Rate FiO2 08/16/17 08:01 37.1 88 20 127/64 (85) 96 Room Air Review Cardiovascular: regular rate, rhythm, no edema, no gallop, no JVD Lungs: + rhonchi Pre-Sedation Airway Assessment Smoking Status: Never Smoker Hx of Sleep Apnea: No Hx of difficult intubation: No Short Thick Neck: No Thyro-mental Distance: < or =3 Finger Breadths Oral Cavity: WNL Mallampati Classification: Class III ASA Classification: Class III NPO Status Date of Last Intake of Fluids: Aug 15, 2017 Time of Last Intake of Fluids: 2200 Date of Last Intake of Solids: Aug 15, 2017 Time of Last Intake of Solids: 2000 Procedure Planning Contraindications for Sedation: None Current Medications Reviewed: Yes Notes The planned sedation has been discussed with the patient. Informed Consent was obtained. I have identified the patient, determined the appropriateness of sedation and have assessed the patient immediately prior to the procedure. All medicine(s) and interventions are by my order.
[2017-08-16] MEDS ORDERED: LIDOCAINE 4% INH SOLN 4 ML BTL TOP ONE (09:18)
[2017-08-16] MEDS ORDERED: LIDOCAINE VISCOUS 2% 100ML TOP ONE (09:20)
[2017-08-16] MEDS ORDERED: FENTANYL CITRATE INJ 50 MCG/1 ML 2 ML VIAL IV ONE (09:26)
[2017-08-16] MEDS ORDERED: MIDAZOLAM HCL 5 MG/ML 1 ML VIAL IV ONE (09:26)
[2017-08-16] MEDS ORDERED: NURSING VERBAL MED ORDER ONE (09:30)
[2017-08-16] MEDS ORDERED: LIDOCAINE HCL 2% LOCAL 50ML VIAL INSTIL ONE (09:45)
--- NOTE | 2017-08-16 09:59 | Post Sedation Assessment ---
Post Sedation Assessment General Date of Sedation Aug 16, 2017. Vital Signs: Vital Signs Past 12 Hours Date Time Temp Pulse Resp B/P (MAP) Pulse Ox O2 Delivery O2 Flow Rate FiO2 08/16/17 08:01 37.1 88 20 127/64 (85) 96 Room Air Post Procedure Recovery Score Activity: (2) Moves 4 extremities * Respiration: (2) Deep breath/cough Circulation: (2) +/-20% PreAnes Value Consciousness: (1) Arouseable (by name) Oxygen Saturation: (2) > 92% On Room Air Discharge Sedation Level of Care: Phase I Post Sedation Plan On clinical assessment, the patient appears to have tolerated the sedation without complications. Patient is recovering as anticipated. Patient will continue to be monitored by nursing and may be discharged when sedation discharge criteria are met per below protocol. Upon Completions of procedure and additional 15 minutes continue every 5 minute vital signs and the P.A.R. score; then discharge to a Phase I or Fast Track to Phase II per the following guidelines: * Discharge Patient to appropriate Phase II area if PAR is 8 or greater or return to pre- procedure baseline. The post - procedure orders will be as directed. * If PAR score is less than 8 or not return to pre-procedure baseline then patient will follow Phase I monitoring till PAR is reached for Phase II. The Phase I may be done in procedure room or may call to secure a Phase I area. * If naloxone or flumazenil are used for reversal, hold in Phase I for an additional 60 -120 minutes before discharge to Phase II. Please call the Sedation Physician to re-evaluate and complete post-note for discharge to Phase II area. Do NOT discharge from procedure sedation or Phase 1 until post- sedation evaluation note is complete by procedure /sedation MD Sedation Discharge Instructions to be given to the patient at discharge to home.
[2017-08-16] MEDS ORDERED: DEXTROSE 5% 1000ML 1,000 ML IV SCH (10:00)
--- NOTE | 2017-08-16 10:03 | Bronchoscopy Procedure Note ---
Bronchoscopy Procedure Note Procedure: Bronchoscopy, conscious sedation, bronchial lavage left lower lobe Consent: Obtained through the patient placed into the chart Pre-procedural diagnosis: Chronic bronchiectasis with acute Post-procedural diagnosis: Chronic bronchiectasis with acute flare Start time: 925 End time: 954 Total time: 29minutes Analgesia: 2% liquid lidocaine: Via nebulizer 4% gel lidocaine: Via right naris 2% liquid lidocaine: Via bronchoscopy Sedation: Versed IV: 6mg Fentanyl IV: 125 g Procedure: The Olympus video bronchoscope was used for this procedure and passed down through the right naris Right naris/posterior naris/posterior oropharynx: Posterior naris notably erythematous with posterior wall large crypt Glottis: Exaggerated working formation Vocal cords: Proper abduction and abduction, anatomically within normal limits Subglottis/trachea/Terri: Anatomically within normal limits Right bronchial tree: Right mainstem bronchus: Anatomically within normal limits Right upper lobe: intrabronchial submucosal white plaques do not appear to be consistent with tracheal ring distribution Bronchus intermedius: intrabronchial submucosal white plaques do not appear to be consistent with tracheal ring distribution Right middle lobe: intrabronchial submucosal white plaques do not appear to be consistent with tracheal ring distribution Right lower lobe: Greatest distribution of the intrabronchial submucosal white plaques do not appear to be consistent with tracheal ring distribution Findings: Diffuse white submucosal plaque formation Left bronchial tree: Left mainstem bronchus: Anatomically within normal limits Left upper lobe: intrabronchial submucosal white plaques do not appear to be consistent with tracheal ring distribution Lingula: intrabronchial submucosal white plaques do not appear to be consistent with tracheal ring distribution Left lower lobe: intrabronchial submucosal white plaques do not appear to be consistent with tracheal ring distribution, large mucous plug obstructing also pyramids Findings: Diffuse white submucosal plaque formation Bronchial alveolar lavage: Left lower lobe EBL: One Complications: None Follow-up: ASU
--- NOTE | 2017-08-16 10:06 | Discharge Instructions ---
Discharge Instructions Date of Service Aug 16, 2017. Admission Reason for Admission: Bronchiectasis, Shortness Of Breath Discharge Discharge Diagnosis / Problem: chronic bronchiectasis Discharge Goals Goal(s): Improve function, Diagnostic testing Activity Recommendations Activity Limitations: resume your previous activity . Instructions / Follow-Up Instructions / Follow-Up Follow-up with the [facility] pulmonary division Current Hospital Diet Patient's current hospital diet: Discharge Diet Recommended Diet: Regular Diet Procedures Procedures Performed: Bronchoscopy, conscious sedation bronchial lavage of the left lower lobe Pending Studies Studies pending at discharge: no Medical Emergencies . Who to Call and When: Medical Emergencies: If at any time you feel your situation is an emergency, please call 911 immediately. . Non-Emergent Contact Non-Emergency issues call your: Human Services Supervisor . . "Provider Documentation" section prepared by Arnaud Weller. . VTE Core Measure Inpt VTE Proph given/why not?: Other Anticoagulation
[2017-08-16 10:17] VITALS: BP 133/83; PULSE 81; TEMP 36.9; O2SAT 98
[2017-08-16 10:30] VITALS: BP 114/93; PULSE 107; O2SAT 97
[2017-08-16 11:00] VITALS: BP 130/82; PULSE 97; O2SAT 95
[2017-08-16 11:42] VITALS: BP 124/76; PULSE 90; O2SAT 95
[2017-08-16 12:10] VITALS: BP 119/85; PULSE 90; TEMP 37.1; O2SAT 95
== END 2017-08-16 12:24 | disposition home or self-care (01) ==
LOC: C.ACU 07:15
PROVIDERS: ATTEND Internal Medicine Critical Care Medicine
DX: J47.9 Bronchiectasis, uncomplicated (principal); M81.0 Age-related osteoporosis without current pathological fracture; E03.9 Hypothyroidism, unspecified; E55.9 Vitamin D deficiency, unspecified; K21.0 Gastro-esophageal reflux disease with esophagitis; Z79.01 Long term (current) use of anticoagulants; Z79.899 Other long term (current) drug therapy

== ENCOUNTER 2017-08-19 13:48 | Observation (INO) | payer OTHER ==
[~2017-08-19] VITALS: Ht 188 cm; Wt 63.0 kg
[~2017-08-19 13:48] MED LIST changes: -ACET-749 PO; +IPRASOL4 INH; -LVNIS80 SQ; +PRED10TA PO; -VALA500T60 PO
--- NOTE | 2017-08-19 14:31 | EMERGENCY ROOM VISIT NOTE ---
History First contact with patient: 14:06 Chief Complaint: SHORTNESS OF BREATH Stated Complaint: NOT BREATHING Nursing Triage Summary: pt c/o worsening SOB over the past 3 wks and feels like it is getting worse pt also c/o sibsternal chest pain History of Present Illness The patient is a 42 year old male who presents to the Emergency Room with complaints of shortness of breath. The patient states he has been dealing with ongoing breathing issues for the past month, but he feels like his symptoms have been getting worse past few days. He also has some substernal chest pain since yesterday. He states chest pain is constant, feels like tightness, does not radiate, nothing makes it better or worse, 10/15. The shortness of breath is also constant, feels like he cannot get enough air, not worse with exertion or lying flat, unrelieved with nebulizer treatments. He states he has been on steroids off and on for the past 2 weeks, several courses of antibiotics, and nebulizer treatments, all without improvement. He had a bronchoscopy done [address] Weller, which showed diffuse inflammation, they are awaiting results of cultures. He denies any headaches, neck pain, fevers or chills, back pain, abdominal pain, nausea or vomiting, diarrhea, urinary symptoms, rash. He denies any recent sick contacts. He denies any recent travel outside of the [place] Review of Systems A complete 10 point review of systems was reviewed with the patient with pertinent positives and negatives as per history of present illness. All else were negative. Past Medical/Surgical History Medical Problems: (1) Acute dyspnea (2) Aspiration pneumonia (3) Asthma (4) Chest pain (5) Dizziness (6) DVT (deep venous thrombosis) (7) Hypoxia (8) Mastoiditis, chronic (9) Pneumonia (10) Pneumonia of both lower lobes (11) Right otitis media (12) Shortness of breath Family History Diabetes mellitus FH: cancer Hypertension Social History Smoking Status: Never Smoker Alcohol Use: none Drug Use: none Marital Status: Housing Status: lives with family Occupation Status: other Current/Historical Medications Scheduled Ascorbic Acid (Vitamin C), 1,000 MG PO DAILY Budesonide (Inhalation) (Pulmicort Flexhaler), 2 PUFFS INH BID Budesonide (Nasal) (Rhinocort Allergy), 2 SPRAYS SIDNEY QAM Calcium/Vitamin D (Os-Tommy 500 Plus D), 600 MG PO BID Cholecalciferol (Vitamin D3), 2,000 INTER.UNIT PO QAM Denosumab (Prolia), 1 DOSE INJ UD Diltiazem Hcl (Cardizem), 60 MG PO HS Fish Oil (Mcclellan-3), 1 CAP PO QAM Ipratropium-Albuterol (Duoneb), 1 TREATMENT INH Q4H Levalbuterol Tartrate (Levalbuterol Tartrate Hfa), 3 PUFFS PO BID Levothyroxine Sodium (Synthroid), 25 MCG PO QAM Loratadine (Claritin), 10 MG PO QAM Mometasone Furoate-Formoterol (Dulera 200/5 Mcg), 2 PUFFS INH BID Montelukast Sod (Montelukast Sodium), 10 MG PO QPM Multivitamins/Minerals (Mvi With Minerals), 1 TAB PO QAM Omeprazole (Prilosec), 40 MG PO QAM Prednisone (Prednisone), 10 MG PO QID Tiotropium [place] (Spiriva Handihaler), 1 CAP INH QAM Warfarin Sod (Jantoven), 10 MG PO 2XWK Warfarin Sod (Jantoven), 7.5 MG PO 5XWK Scheduled PRN Diclofenac Sodium (Topical) (Diclofenac Sodium), 1 DOSE TOP PRN PRN for PRN Levalbuterol Hcl (Levalbuterol), 1 AMP NEB Q4H PRN for SOB/Wheezing Allergies Reviewed in chart Physical Exam Vital Signs Date Time Temp Pulse Resp B/P (MAP) Pulse Ox O2 Delivery O2 Flow Rate FiO2 08/19/17 18:13 78 20 103/70 98 Room Air 08/19/17 16:19 82 20 129/78 97 Nasal Cannula 2.0 08/19/17 16:01 71 08/19/17 14:56 73 26 124/68 97 Nasal Cannula 2.0 08/19/17 14:46 94 Room Air 08/19/17 14:46 94 Room Air 08/19/17 13:54 36.5 100 28 113/73 94 Room Air Physical Exam CONSTITUTIONAL: Pleasant and cooperative. No acute distress, but does appear uncomfortable and mildly tachypneic. HEENT: Normocephalic, atraumatic. Pupils equal, round and reactive to light, EOMI. TMs normal. Pharynx normal. Tacky mucous membranes. NECK: Supple, full active range of motion without discomfort. RESPIRATORY: Clear to auscultation bilaterally with no wheezing, crackles, rhonchi or stridor. Diminished bilaterally in the bases. Equal expansion bilaterally. CARDIOVASCULAR: Regular rate and rhythm with no murmurs, rubs or gallops. Normal peripheral perfusion. No edema. GASTROINTESTINAL: Soft, nontender, nondistended. No palpable masses or HSM. Bowel sounds present in all quadrants. MUSCULOSKELETAL: Full range of motion of all joints without discomfort. INTEGUMENTARY: No rash or other significant dermatologic conditions noted. NEUROLOGIC: Alert and oriented X 4 with normal affect. Cranial nerves II-XII grossly intact. No focal neurologic deficits noted. Normal strength and sensation, normal speech, normal coordination. Medical Decision & Procedures ER Provider Diagnostic Interpretation: CHEST 2 VIEWS ROUTINE CLINICAL HISTORY: EVALUATE RESPIRATORY DISTRESS.DYSPNEA COMPARISON STUDY: Chest CT August 04, 2017. FINDINGS: Lateral view demonstrates several thoracic spine compression deformities. Lung volumes are at the upper limits of normal. No pneumothorax or pleural effusion is noted. There is moderate cardiomegaly without evidence of pulmonary edema. Old bilateral rib fractures are noted. No consolidation is identified. Appearance of the chest is unchanged. IMPRESSION: No acute cardiopulmonary findings. No change in appearance of the chest. Laboratory Results 08/19/17 14:35 Red Blood Count 4.46, Mean Corpuscular Volume 95.5, Mean Corpuscular Hemoglobin 31.8, Mean Corpuscular Hemoglobin Concent 33.3, Mean Platelet Volume 10.2, Neutrophils (%) (Auto) 87.4, Lymphocytes (%) (Auto) 5.9, Monocytes (%) (Auto) 3.0, Eosinophils (%) (Auto) 0.0, Basophils (%) (Auto) 0.1, Neutrophils # (Auto) 6.34, Lymphocytes # (Auto) 0.43, Monocytes # (Auto) 0.22, Eosinophils # (Auto) 0.00, Basophils # (Auto) 0.01 08/19/17 14:35 Test 08/19/17 14:35 08/19/17 16:00 White Blood Count 7.26 K/uL (4.8-10.8) Red Blood Count 4.46 M/uL (4.7-6.1) Hemoglobin 14.2 g/dL (14.0-18.0) Hematocrit 42.6 % (42-52) Mean Corpuscular Volume 95.5 fL (80-100) Mean Corpuscular Hemoglobin 31.8 pg (25-34) Mean Corpuscular Hemoglobin Concent 33.3 g/dl (32-36) Platelet Count 158 K/uL (130-400) Mean Platelet Volume 10.2 fL (7.4-10.4) Neutrophils (%) (Auto) 87.4 % Lymphocytes (%) (Auto) 5.9 % Monocytes (%) (Auto) 3.0 % Eosinophils (%) (Auto) 0.0 % Basophils (%) (Auto) 0.1 % Neutrophils # (Auto) 6.34 K/uL (1.4-6.5) Lymphocytes # (Auto) 0.43 K/uL (1.2-3.4) Monocytes # (Auto) 0.22 K/uL (0.11-0.59) Eosinophils # (Auto) 0.00 K/uL (0-0.5) Basophils # (Auto) 0.01 K/uL (0-0.2) RDW Standard Deviation 54.7 fL (36.4-46.3) RDW Coefficient of Variation 15.7 % (11.5-14.5) Immature Granulocyte % (Auto) 3.6 % Immature Granulocyte # (Auto) 0.26 K/uL (0.00-0.02) Prothrombin Time 11.2 SECONDS (9.0-12.0) Prothromb Time International Ratio 1.1 (0.9-1.1) Activated Partial Thromboplast Time 22.6 SECONDS (21.0-31.0) Partial Thromboplastin Ratio 0.9 Anion Gap 10.0 mmol/L (3-11) Est Creatinine Clear Calc Drug Dose 75.1 ml/min Estimated GFR () 91.8 Estimated GFR (Non- 79.2 BUN/Creatinine Ratio 12.0 (10-20) Calcium Level 8.8 mg/dl (8.5-10.1) Total Bilirubin 0.4 mg/dl (0.2-1) Aspartate Amino Transf (AST/SGOT) 17 U/L (15-37) Alanine Aminotransferase (ALT/SGPT) 53 U/L (12-78) Alkaline Phosphatase 58 U/L (45-117) Pro-B-Type Natriuretic Peptide 48 pg/ml (0-450) Total Protein 6.8 gm/dl (6.4-8.2) Albumin 3.7 gm/dl (3.4-5.0) Globulin 3.1 gm/dl (2.5-4.0) Albumin/Globulin Ratio 1.2 (0.9-2) Lyme Disease IgG Antibody NEG (NEG) Lyme Disease IgM Antibody NEG (NEG) Urine Color YELLOW Urine Appearance CLEAR (CLEAR) Urine pH 8.0 (4.5-7.5) Urine Specific [place] 1.015 (1.000-1.030) Urine Protein NEG (NEG) Urine Glucose (UA) NEG (NEG) Urine Ketones NEG (NEG) Urine Occult Blood NEG (NEG) Urine Nitrite NEG (NEG) Urine Bilirubin NEG (NEG) Urine Urobilinogen NEG (NEG) Urine Leukocyte Esterase NEG (NEG) Medications Administered Medications (Trade) Dose Ordered Sig/Dena Route Start Time Stop Time Status Last Admin Dose Admin Methylprednisolone Sodium Succinate (Solu-Medrol IV) 125 mg NOW STAT IV 08/19/17 16:59 08/19/17 17:02 DC 08/19/17 18:32 125 MG Enoxaparin Sodium (Lovenox Inj) 60 mg Q12@0600,1800 SQ 08/19/17 17:30 08/19/17 20:39 DC 08/19/17 18:33 60 MG Medical Decision CC: Patient presenting with complaint of short of breath, chest pain Interpretation of Labs: No leukocytosis, no anemia, no significant elective id. normality, normal renal function, normal liver enzymes. Negative troponin, negative pro-BNP. Subtherapeutic INR (on Coumadin). UA negative. Differential Diagnosis: Includes, but not limited to bronchitis, bronchiectasis , viral URI, pneumonia, pulmonary edema, CHF, COPD, PE, anxiety, hypoxia, among others. Medication Reconciliation: I attest that I have personally reviewed the patient' s current medication list. Vital signs review: I reviewed the patient's vital signs and interpret them as follows: T: Afebrile; BP: Normotensive; HR: Tachycardic; RR: Tachypneic; Pulse Ox: Low normal on room air. Blood pressure screening: The patient was found to have normal blood pressure on screening and does not require follow-up for repeat blood pressure check. Summary: Patient was evaluated at bedside, history and physical exam performed. Patient is alert and oriented, no acute distress, but does appear to be mildly labored with his breathing, tachypneic, but able to complete sentences, mild accessory muscle use. Lungs are clear throughout, diminished in the bases, no wheezes or crackles heard. Patient noted with sats of 93-94% on room air, and he states he feels winded and like he is not getting enough oxygen. He was placed on 2 L of oxygen with good improvement in his symptoms and sats increased to 97-98%. EKG reviewed at bedside, normal sinus rhythm with no acute ischemic changes, normal EKG. Patient does have a history of PE in the past and is on warfarin therapy. He states that he stopped his Coumadin a few days ago for his bronchoscopy, and restarted it 2 days ago. I discussed the option of performing a chest CT to rule out a PE, the patient states he does not want to have this done, as he recently had a chest CT 2 weeks ago that was negative for PE. Orders were placed at bedside for labs, UA, chest x-ray to evaluate for cardiopulmonary disease. Patient discussed with Dr. Bourgeois, who agrees with my assessment and plan. Labs reviewed as above, notable that he is subtherapeutic on his Coumadin. Troponin is negative. Chest x-ray appears unremarkable, no acute changes. I did speak on the phone with Dr. Egan, senior economist, who also spoke with Dr. Weller, patient's senior economist. After our joint discussion, the decision was made to admit the patient for oxygen, IV steroids, and anticoagulation. IV Solu-Medrol and treatment dose Lovenox were ordered at this time. Patient reassessed multiple times throughout ED stay, he remains improved after being placed on oxygen and appears much more comfortable. I discussed plans for admission with the patient and his , they verbalized agreement and are much relieved that he is going to be admitted. I spoke with Dr. Verde, hospitalist, who agrees to evaluate patient for admission. The patient was stable at time of admission. Impression Primary Impression: Shortness of breath Departure Information Dispostion Admitted as an inpatient Condition FAIR Referrals Barrington Adorno M.D. (PCP) Patient Instructions My [facility]
[2017-08-19] MEDS ORDERED: WARF5TAB7 PO ×2 (14:39)
[2017-08-19] MEDS ORDERED: LEVA45AE PO (14:39)
[2017-08-19 14:47] LABS: BASO % 0.1 %; BASO ABS # 0.01 K/uL (0-0.2); HEMATOCRIT 42.6 % (42-52); HEMOGLOBIN 14.2 g/dL (14.0-18.0); IG# 0.26 K/uL (0.00-0.02); LYMPH % 5.9 %; LYMPH ABS # 0.43 K/uL (1.2-3.4); MEAN CELL VOLUME 95.5 fL (80-100); MEAN CORPUSCULAR HEMOGLOBIN 31.8 pg (25-34); MEAN CORPUSCULAR HGB CONC 33.3 g/dl (32-36); MEAN PLATELET VOLUME 10.2 fL (7.4-10.4); MONO ABS # 0.22 K/uL (0.11-0.59); NEUT % 87.4 %; NEUT ABS # 6.34 K/uL (1.4-6.5); PLATELET COUNT 158 K/uL (130-400); RED CELL DISTRIBUTION WIDTH CV 15.7 % (11.5-14.5); RED CELL DISTRIBUTION WIDTH SD 54.7 fL (36.4-46.3); WHITE BLOOD COUNT 7.26 K/uL (4.8-10.8)
[2017-08-19 14:58] LABS: INR 1.1 (0.9-1.1); PTT PATIENT 22.6 SECONDS (21.0-31.0)
[2017-08-19 15:03] LABS: ALBUMIN 3.7 gm/dl (3.4-5.0); ALT/SGPT 53 U/L (12-78); BLOOD UREA NITROGEN 14 mg/dl (7-18); CALCIUM 8.8 mg/dl (8.5-10.1); CARBON DIOXIDE 23 mmol/L (21-32); CREATININE 1.13 mg/dl (0.60-1.40); GLUCOSE 126 mg/dl (70-99); POTASSIUM 4.1 mmol/L (3.5-5.1); SODIUM 141 mmol/L (136-145)
[2017-08-19 15:08] LABS: ALKALINE PHOSPHATASE 58 U/L (45-117); AST/SGOT 17 U/L (15-37); TOTAL PROTEIN 6.8 gm/dl (6.4-8.2)
--- NOTE | 2017-08-19 15:41 | DIAGNOSTIC IMAGING REPORT ---
CHEST 2 VIEWS ROUTINE CLINICAL HISTORY: EVALUATE RESPIRATORY DISTRESS.DYSPNEA COMPARISON STUDY: Chest CT August 04, 2017. FINDINGS: Lateral view demonstrates several thoracic spine compression deformities. Lung volumes are at the upper limits of normal. No pneumothorax or pleural effusion is noted. There is moderate cardiomegaly without evidence of pulmonary edema. Old bilateral rib fractures are noted. No consolidation is identified. Appearance of the chest is unchanged. IMPRESSION: No acute cardiopulmonary findings. No change in appearance of the chest. Electronically signed by: Hang Blood M.D. 08/19/2017 3:39 PM Dictated Date/Time: 08/19/2017 3:38 PM
[2017-08-19] MEDS ORDERED: METHYLPREDNISOLONE 125 MG VIAL IV STA (16:59)
[2017-08-19] MEDS ORDERED: ENOXAPARIN 1 MG/KG SQ SCH ×2 (17:00→18:00)
[2017-08-19] MEDS ORDERED: ENOXAPARIN 60 MG/0.6 ML SYR SQ SCH (17:30)
[2017-08-19] MEDS ORDERED: ONDANSETRON INJ 2 MG/ML 2 ML VIAL IV PRN (18:00)
[2017-08-19] MEDS ORDERED: ALUMINUM/MAGNESIUM/SIMETH (MAALOX MAX) 30 ML UDC PO PRN (18:00)
[2017-08-19] MEDS ORDERED: MAGNESIUM HYDROXIDE SUSP 30 ML UDC PO PRN (18:00)
[2017-08-19] MEDS ORDERED: ACETAMINOPHEN 325 MG TAB PO PRN (18:00)
[2017-08-19] MEDS ORDERED: POLYETHYLENE (MIRALAX) 17 GM PACK PO PRN (18:00)
--- NOTE | 2017-08-19 18:37 | History and Physical ---
History & Physical Date & Time of Service: Aug 19, 2017 at 18:15 Chief Complaint: Not Breathing Primary Care Physician: Barrington Adorno M.D. History of Present Illness Source: patient, clinic records, hospital records This is a 42 y/o male with a history of asthma, bronchiectasis, h/o PE, chronic LLE DVT, hypothyroidism, and GERD w/esophagitis who presented to the ED on 08/19 with worsening shortness of breath. The patient states that his breathing has been an issue for the last month or so, but in the last few days it has gotten progressively worse. He follows with Dr. Morrissey and Dr. Weller as an outpatient. He has completed rounds of antibiotics, steroids, and a complex pulmonary daily regimen at home with no relief. He underwent bronchoscopy 3 days ago which revealed diffuse white plaques. The patient complains of generalized weakness and fatigue, shortness of breath, and dyspnea on exertion. He states that he developed some substernal chest pain and abdominal pain this morning while he was struggling to breathe, but these have both resolved. He states he now feels better on oxygen, which he does not wear at home. The patient denies fevers, chills, sweats, palpitations, claudication, cough, wheezing, nausea, vomiting, dysuria, hematuria, urinary retention, paralysis, weakness, numbness and tingling. Past Medical/Surgical History Medical Problems: (1) Aspiration pneumonia Status: Resolved (2) Asthma Status: Chronic (3) Mastoiditis, chronic Status: Resolved (4) Right otitis media Status: Resolved Bronchiectasis H/o PE Chronic DVT Hypothyroidism GERD w/esophagitis Family History Diabetes mellitus FH: cancer (prostate) Hypertension Stroke Social History Smoking Status: Never Smoker Smokeless Tobacco Use: No Alcohol Use: none Drug Use: none Marital Status: Housing status: lives with family Occupational Status: employed, other Multi-Drug Resistant Organisms History of MDRO: No Allergies Coded Allergies: Gluten (Verified Allergy, Unknown, STOMACH ISSUES, 08/19/17) Ciprofloxacin (Verified Adverse Reaction, Intermediate, issue with legs , 08/19/17) Oxycodone (Verified Adverse Reaction, Mild, GI upset , 08/19/17) Home Medications Scheduled Ascorbic Acid (Vitamin C), 1,000 MG PO DAILY Budesonide (Inhalation) (Pulmicort Flexhaler), 2 PUFFS INH BID Budesonide (Nasal) (Rhinocort Allergy), 2 SPRAYS SIDNEY QAM Calcium/Vitamin D (Os-Tommy 500 Plus D), 600 MG PO BID Cholecalciferol (Vitamin D3), 2,000 INTER.UNIT PO QAM Denosumab (Prolia), 1 DOSE INJ UD Diltiazem Hcl (Cardizem), 60 MG PO HS Fish Oil ([place]-3), 1 CAP PO QAM Ipratropium-Albuterol (Duoneb), 1 TREATMENT INH Q4H Levalbuterol Tartrate (Levalbuterol Tartrate Hfa), 3 PUFFS PO BID Levothyroxine Sodium (Synthroid), 25 MCG PO QAM Loratadine (Claritin), 10 MG PO QAM Mometasone Furoate-Formoterol (Dulera 200/5 Mcg), 2 PUFFS INH BID Montelukast Sod (Montelukast Sodium), 10 MG PO QPM Multivitamins/Minerals (Mvi With Minerals), 1 TAB PO QAM Omeprazole (Prilosec), 40 MG PO QAM Prednisone (Prednisone), 10 MG PO QID Tiotropium [place] (Spiriva Handihaler), 1 CAP INH QAM Warfarin Sod (Jantoven), 10 MG PO 2XWK Warfarin Sod (Jantoven), 7.5 MG PO 5XWK Scheduled PRN Diclofenac Sodium (Topical) (Diclofenac Sodium), 1 DOSE TOP PRN PRN for PRN Levalbuterol Hcl (Levalbuterol), 1 AMP NEB Q4H PRN for SOB/Wheezing Review of Systems Constitutional: +Generally weak and fatigued. No fever, No chills, No sweats Eyes: No worsening of vision, No eye pain, No diplopia ENT: No hearing loss, No nasal symptoms, No trouble swallowing Respiratory: +SOB, BENAVIDES. No cough, No wheezing Cardiovascular: +Chest pain resolved. No claudication, No palpitations Abdomen: +Diffuse abdominal pain resolved. No nausea, No vomiting Musculoskeletal: No joint pain, No muscle pain, No swelling Genitourinary - Male: No dysuria, No urinary retention, No hematuria Neurologic: No paralysis, No weakness, No numbness/tingling Integumentary: No rash, No itch, No color change Physical Exam Vital Signs Date Time Temp Pulse Resp B/P (MAP) Pulse Ox O2 Delivery O2 Flow Rate FiO2 08/19/17 18:13 78 20 103/70 98 Room Air 08/19/17 16:19 82 20 129/78 97 Nasal Cannula 2.0 08/19/17 16:01 71 08/19/17 14:56 73 26 124/68 97 Nasal Cannula 2.0 08/19/17 14:46 94 Room Air 08/19/17 14:46 94 Room Air 08/19/17 13:54 36.5 100 28 113/73 94 Room Air General appearance: Well-developed, well-nourished, no apparent distress Head: Normocephalic, atraumatic Eyes: Normal inspection, PERRL, EOMI ENT: +Wears hearing aid. Normal ENT inspection, hearing grossly normal, pharynx normal Neck: Supple, no JVD, trachea midline Respiratory/Chest: +Decreased breath sounds, very tight and poor air movement. On 2L NC. Pectus excavatum. Lungs clear to auscultation, no respiratory distress Cardiovascular: Regular rate & rhythm, no gallop, no murmur Abdomen/GI: +Lower abdomen mildly TTP. Normal bowel sounds, non-tender, soft Extremities/Musculoskeletal: Normal inspection, no calf tenderness, no pedal edema Neurological/Psych: Alert, normal mood/affect, oriented x 3 Skin: Normal color, warm/dry, no rash Diagnostics Laboratory Results Results Past 24 Hours Test 08/19/17 14:35 08/19/17 16:00 Range/Units White Blood Count 7.26 4.8-10.8 K/uL Red Blood Count 4.46 4.7-6.1 M/uL Hemoglobin 14.2 14.0-18.0 g/dL Hematocrit 42.6 42-52 % Mean Corpuscular Volume 95.5 80-100 fL Mean Corpuscular Hemoglobin 31.8 25-34 pg Mean Corpuscular Hemoglobin Concent 33.3 32-36 g/dl Platelet Count 158 130-400 K/uL Mean Platelet Volume 10.2 7.4-10.4 fL Neutrophils (%) (Auto) 87.4 % Lymphocytes (%) (Auto) 5.9 % Monocytes (%) (Auto) 3.0 % Eosinophils (%) (Auto) 0.0 % Basophils (%) (Auto) 0.1 % Neutrophils # (Auto) 6.34 1.4-6.5 K/uL Lymphocytes # (Auto) 0.43 1.2-3.4 K/uL Monocytes # (Auto) 0.22 0.11-0.59 K/uL Eosinophils # (Auto) 0.00 0-0.5 K/uL Basophils # (Auto) 0.01 0-0.2 K/uL RDW Standard Deviation 54.7 36.4-46.3 fL RDW Coefficient of Variation 15.7 11.5-14.5 % Immature Granulocyte % (Auto) 3.6 % Immature Granulocyte # (Auto) 0.26 0.00-0.02 K/uL Prothrombin Time 11.2 9.0-12.0 SECONDS Prothromb Time International Ratio 1.1 0.9-1.1 Activated Partial Thromboplast Time 22.6 21.0-31.0 SECONDS Partial Thromboplastin Ratio 0.9 Sodium Level 141 136-145 mmol/L Potassium Level 4.1 3.5-5.1 mmol/L Chloride Level 108 98-107 mmol/L Carbon Dioxide Level 23 21-32 mmol/L Anion Gap 10.0 3-11 mmol/L Blood Urea Nitrogen 14 7-18 mg/dl Creatinine 1.13 0.60-1.40 mg/dl Est Creatinine Clear Calc Drug Dose 75.1 ml/min Estimated GFR () 91.8 Estimated GFR (Non- 79.2 BUN/Creatinine Ratio 12.0 10-20 Random Glucose 126 70-99 mg/dl Calcium Level 8.8 8.5-10.1 mg/dl Total Bilirubin 0.4 0.2-1 mg/dl Aspartate Amino Transf (AST/SGOT) 17 15-37 U/L Alanine Aminotransferase (ALT/SGPT) 53 12-78 U/L Alkaline Phosphatase 58 45-117 U/L Troponin I < 0.015 0-0.045 ng/ml Pro-B-Type Natriuretic Peptide 48 0-450 pg/ml Total Protein 6.8 6.4-8.2 gm/dl Albumin 3.7 3.4-5.0 gm/dl Globulin 3.1 2.5-4.0 gm/dl Albumin/Globulin Ratio 1.2 0.9-2 Urine Color YELLOW Urine Appearance CLEAR CLEAR Urine pH 8.0 4.5-7.5 Urine Specific [place] 1.015 1.000-1.030 Urine Protein NEG NEG Urine Glucose (UA) NEG NEG Urine Ketones NEG NEG Urine Occult Blood NEG NEG Urine Nitrite NEG NEG Urine Bilirubin NEG NEG Urine Urobilinogen NEG NEG Urine Leukocyte Esterase NEG NEG Diagnostic Radiology Reviewed the following studies and agree with interpretation as follows: CHEST 2 VIEWS ROUTINE CLINICAL HISTORY: EVALUATE RESPIRATORY DISTRESS.DYSPNEA COMPARISON STUDY: Chest CT August 04, 2017. FINDINGS: Lateral view demonstrates several thoracic spine compression deformities. Lung volumes are at the upper limits of normal. No pneumothorax or pleural effusion is noted. There is moderate cardiomegaly without evidence of pulmonary edema. Old bilateral rib fractures are noted. No consolidation is identified. Appearance of the chest is unchanged. IMPRESSION: No acute cardiopulmonary findings. No change in appearance of the chest. EKG Reviewed EKG and agree with interpretation as follows: 96 bpm, NSR Impression Assessment and Plan 42 y/o male with a history of asthma, bronchiectasis, h/o PE, chronic LLE DVT, hypothyroidism, and GERD w/esophagitis who presented to the ED on 08/19 with worsening shortness of breath. Pt afebrile, tachycardic and tachypneic on arrival. Non-hypoxic, although he was eventually placed on 2L NC due to his SOB and reported feeling better. CXR no acute disease. EKG no ischemic changes. INR 1.1. Worsening shortness of breath--unclear etiology. Pulmonology has been working this up as an outpt for quite some time -Admit to med/surg -O2 by protocol -Solu-Medrol 40 mg IV q6h. ED provider spoke with pulm who recommended IV steroids and admission. Given loading dose in ED -Hold home Prednisone -Xopenex/Atrovent nebs QIDR and q2h prn SOB/wheezing -Continue Pulmicort BID, Rhinocort, Dulera BID, Spiriva. Pt brought Pulmicort and Dulera from home -Check for Lyme disease -Consult pulmonology, appreciate recs Asthma, allergies -Continue Singulair, Claritin -Pt on diltiazem 60 mg PO qd for asthma per outpt records, prescribed by pulmonology provider H/o PE, chronic LLE DVT, subtherapeutic INR--CTA chest 2 weeks ago was negative for PE, but pt was taken off his Coumadin for the bronchoscopy 3 days ago and has been subtherapeutic for several days at this point -Start Lovenox 1 mg/kg SC BID -Continue warfarin 10 mg Tuesday/Tuesday, 7.5 mg PO all other days -Continue to monitor INR Hypothyroidism -Continue Synthroid 25 mcg PO qd GERD w/esophagitis -Prilosec converted to Protonix DVT prophylaxis -Lovenox as above, bridge warfarin -VJ lenz and SCDs Code Status -Level I, FULL RESUSCITATION STATUS Level of Care Med/Surg Resuscitation Status FULL RESUSCITATION VTE Prophylaxis VTE Risk Assessment Done? Y/N: Yes Risk Level: Moderate Given or contraindicated: Enoxaparin (Lovenox)SQ, T.E.D. Stockings, SCD's Reviewed: Pt Seen/Exam by Me History Pt is feeling a bit improved with O2 and steroids. Feels that his breathing has been a bit worse since his bronch. Was told by Dr. Weller that he was awaiting return of Dr. Morrissey from vacation to review this bronch with a bronch that Dr. Morrissey did several years ago. This was to happen around Tuesday of next week. 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 Agree with HPI/ROS as noted by PA General Appearance: WD/WN, no apparent distress Respiratory: normal breath sounds, no respiratory distress Cardiovascular: normal peripheral pulses, regular rate, rhythm Gastrointestinal: non tender, soft Extremities: non-tender, no pedal edema Neurologic/Psychiatric: alert, oriented x 3 Skin Characteristics: normal color, warm/dry Assessment/Plan Agree with plan as outlined above SOB that is improved with O2 and steroids Ongoing outpt work-up with pulm including bronch 3 days ago that was neg Pt had a CTA done 08/04 that was neg. He would like to avoid a repeat at this time for insurance purposes given that he is feeling improved with steroids and O2. He does understand that while being off of his coumadin he may have developed a new PE and is willing to take this risk. He does agree that if his status worsened to have this done.
[2017-08-19] MEDS ORDERED: LEVALBUTEROL/IPRATROPIUM NEB INH SCH (20:00)
[2017-08-19 20:04] VITALS: BP 121/72; PULSE 65; TEMP 36.8; O2SAT 97; Ht 188 cm; Wt 63.0 kg
[2017-08-19] MEDS ORDERED: WARFARIN SOD 10 MG TAB PO SCH (21:00)
[2017-08-19] MEDS: MONTELUKAST SOD 10 MG TAB PO SCH (21:32)
[2017-08-19] MEDS: DILTIAZEM HCL 60 MG TAB PO SCH (21:32)
[2017-08-19] MEDS: CALCIUM 600MG + VIT D 400 IU TAB PO SCH (21:32)
[2017-08-19 22:36] VITALS: BP 106/69; PULSE 92; TEMP 36.8; O2SAT 96
[2017-08-19] MEDS ORDERED: IV FLUIDS COMPLETED PRN (22:45)
[2017-08-19] MEDS: METHYLPREDNISOLONE IV 40 MG in SYRINGE 0 ML IV SCH (23:58)
[2017-08-20] VITALS (8 sets, daily range): BP systolic 112–121; BP diastolic 70–76; PULSE 75–111; TEMP 36.8–37.1; O2SAT 94–99
[2017-08-20] MEDS: METHYLPREDNISOLONE IV 40 MG in SYRINGE 0 ML IV SCH ×4 (05:45→23:42)
[2017-08-20] MEDS: ENOXAPARIN 60 MG/0.6 ML SYR SQ SCH ×2 (05:46→17:33)
[2017-08-20] MEDS: LEVOTHYROXINE 25 MCG TAB PO SCH (05:46)
[2017-08-20] MEDS: IPRATROPIUM BROMIDE NEB SOLN 0.02% 2.5 ML VIAL INH SCH ×4 (07:18→19:43)
[2017-08-20] MEDS: LEVALBUTEROL 1.25MG/0.5ML NEB INH SCH ×4 (07:18→19:43)
[2017-08-20 07:22] LABS: HEMATOCRIT 43.1 % (42-52); HEMOGLOBIN 14.4 g/dL (14.0-18.0); MEAN CELL VOLUME 95.8 fL (80-100); MEAN CORPUSCULAR HGB CONC 33.4 g/dl (32-36); MEAN PLATELET VOLUME 10.5 fL (7.4-10.4); PLATELET COUNT 161 K/uL (130-400); RED CELL DISTRIBUTION WIDTH CV 15.2 % (11.5-14.5); RED CELL DISTRIBUTION WIDTH SD 53.5 fL (36.4-46.3)
[2017-08-20 07:34] LABS: INR 1.2 (0.9-1.1)
[2017-08-20] MEDS: LORATADINE 10 MG TAB PO SCH (07:51)
[2017-08-20] MEDS: CEROVITE ADV FORMULA TAB PO SCH (07:51)
[2017-08-20] MEDS: CALCIUM 600MG + VIT D 400 IU TAB PO SCH ×2 (07:51→20:36)
[2017-08-20] MEDS: BUDESONIDE AQ (RHINOCORT AQ) NASAL SPRAY 32 MCG NAE SCH (07:51)
[2017-08-20] MEDS: PANTOprazole SOD 40 MG TAB PO SCH (07:51)
[2017-08-20] MEDS: TIOTROPIUM BROMIDE 5 PUFF/90 MCG INH INH SCH (07:51)
[2017-08-20] MEDS: ASCORBIC ACID 500 MG TAB PO SCH (07:51)
[2017-08-20] MEDS: OMEGA-3 (PURIFIED FISH OIL) 1 GM CAP PO SCH (07:51)
[2017-08-20 08:14] LABS: BLOOD UREA NITROGEN 18 mg/dl (7-18); CALCIUM 8.5 mg/dl (8.5-10.1); CARBON DIOXIDE 28 mmol/L (21-32); CREATININE 0.73 mg/dl (0.60-1.40); GLUCOSE 130 mg/dl (70-99); POTASSIUM 4.2 mmol/L (3.5-5.1); SODIUM 139 mmol/L (136-145)
--- NOTE | 2017-08-20 13:15 | Pulmonary Consultation ---
History General Date of Service: Aug 20, 2017. Chief Complaint: Feelings of breathlessness Stated Complaint: Shortness Of Breath HPI The patient is a 42 year old male who presents to [facility] with complaints of Shortness Of Breath. The patient's primary care provider is Barrington Adorno M.D.. The patient has a history of bronchiectasis and underwent bronchoscopy with Dr. Weller on Tuesday. AFB smear is negative. Gram stain is negative. Fungal cultures and pathology are pending. Patient denies fever. Due to chronic bronchiectasis, he states that he never produces sputum. He has no chest pain or tightness. Review of Systems A total of 12 systems was reviewed and is negative other than as listed above in the HPI All Other Symptoms All Other Systems: Reviewed and Negative Past Medical History Past Medical History: Medical Problems: (1) Acute dyspnea (2) Aspiration pneumonia (3) Asthma (4) Chest pain (5) Dizziness (6) DVT (deep venous thrombosis) (7) Hypoxia (8) Mastoiditis, chronic (9) Pneumonia (10) Pneumonia of both lower lobes (11) Right otitis media (12) Shortness of breath Past Surgical History: Bronchoscopy with Dr. 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) Marital status: Housing status: lives with family Occupational Status: employed, other History of MDRO History of MDRO: No Allergies Coded Allergies: Gluten (Verified Allergy, Unknown, STOMACH ISSUES, 08/19/17) Ciprofloxacin (Verified Adverse Reaction, Intermediate, issue with legs , 08/19/17) Oxycodone (Verified Adverse Reaction, Mild, GI upset , 08/19/17) Current Medications Reported Home Medications Medications Dose Route/Sig Max Daily Dose Days Date Category Dose Instructions Jantoven (Warfarin Sodium) 5 Mg Tab 7.5 Mg PO 5XWK 08/19/17 Reported TAKES 7.5MG ON TUESDAY, TUESDAY, TUESDAY, TUESDAY AND TUESDAY Jantoven (Warfarin Sodium) 5 Mg Tab 10 Mg PO 2XWK 08/19/17 Reported TAKES 10MG ON TUESDAY AND TUESDAY Levalbuterol Tartrate Hfa (Levalbuterol Tartrate) 45 Mcg/Act Aer 3 Puffs PO BID 08/19/17 Reported Prednisone 10 Mg Tab 10 Mg PO QID 08/16/17 Reported Duoneb (Ipratropium-Albuterol) 3 Ml Nebu 1 Treatment INH Q4H 08/16/17 Reported Spiriva Handihaler (Tiotropium [place]) 30 Puff/540 Mcg Aerp 1 Cap INH QAM 07/05/17 Reported Levalbuterol (Levalbuterol Hcl) 1.25 Mg/0.5 Ml Neb 1 Amp NEB Q4H PRN 06/23/17 Reported Rhinocort Allergy (Budesonide (Nasal)) 32 Mcg/Act [place] 2 Sprays SIDNEY QAM 06/23/17 Reported Diclofenac Sodium (Diclofenac Sodium (Topical)) 1 % Gel 1 Dose TOP PRN PRN 02/28/17 Reported Prolia (Denosumab) 60 Mg/1 Ml Inj 1 Dose INJ UD 02/28/17 Reported Mvi With Minerals (Multivitamins/Minerals) Tab 1 Tab PO QAM 10/15/16 Reported Synthroid (Levothyroxine Sodium) 25 Mcg Tab 25 Mcg PO QAM 10/15/16 Reported Cardizem (Diltiazem Hcl) 60 Mg Tab 60 Mg PO HS 10/15/16 Reported Pulmicort Flexhaler (Budesonide (Inhalation)) 180 Mcg/Act Inh 2 Puffs INH BID 30 10/15/16 Reported Montelukast Sodium (Montelukast Sod) 10 Mg Tab 10 Mg PO QPM 10/15/16 Reported Vitamin C (Ascorbic Acid) 500 Mg Tab 1,000 Mg PO DAILY 07/01/16 Reported Os-Tommy 500 Plus D (Calcium/Vitamin D) Tab 600 Mg PO BID 07/01/16 Reported Vitamin D3 (Cholecalciferol) 2,000 Unit Cap 2,000 Inter.unit PO QAM 07/01/16 Reported [place]-3 (Fish Oil) 1 Ea Cap 1 Cap PO QAM 07/01/16 Reported Dulera 200/5 Mcg (Mometasone Furoate-Formoterol) 1 Aer Aer 2 Puffs INH BID 07/01/16 Reported Claritin (Loratadine) 10 Mg Tab 10 Mg PO QAM 05/08/11 Reported Prilosec (Omeprazole) 20 Mg Capcr 40 Mg PO QAM 05/08/11 Reported Physical Physical Exam Vital Signs: Date Time Temp Pulse Resp B/P (MAP) Pulse Ox O2 Delivery O2 Flow Rate FiO2 08/20/17 11:08 90 14 96 Nasal Cannula 2.0 08/20/17 08:00 Nasal Cannula 2.0 08/20/17 07:46 36.8 75 24 121/76 (91) 98 Nasal Cannula 2.0 08/20/17 07:20 82 14 99 Nasal Cannula 3.0 08/20/17 00:01 Nasal Cannula 3.0 08/19/17 22:36 36.8 92 18 106/69 (81) 96 Nasal Cannula 3.0 08/19/17 20:04 36.8 65 18 121/72 97 Nasal Cannula 3.0 08/19/17 18:13 78 20 103/70 98 Room Air 08/19/17 16:19 82 20 129/78 97 Nasal Cannula 2.0 08/19/17 16:01 71 08/19/17 14:56 73 26 124/68 97 Nasal Cannula 2.0 08/19/17 14:46 94 Room Air 08/19/17 14:46 94 Room Air 08/19/17 13:54 36.5 100 28 113/73 94 Room Air Weight in Kilograms: 63 Physical Exam: General - NAD. Sitting in bed Eyes - No icterus, gaze conjugate ENT - Mucosa moist, no lesions or candidiasis Neck - Supple, No JVD Lungs - No bronchospasm, rales, or rhonchi. Clear to auscultation Heart - Regular, rate controlled Abdomen - Soft, NT, ND, BS present Extremities - No edema, pedal pulses intact Neuro - A&OX3 Diagnostics Labs Results Past 24 Hours Test 08/19/17 14:35 08/19/17 16:00 08/19/17 22:20 08/20/17 06:49 Range/Units White Blood Count 7.26 7.80 4.8-10.8 K/uL Red Blood Count 4.46 4.50 4.7-6.1 M/uL Hemoglobin 14.2 14.4 14.0-18.0 g/dL Hematocrit 42.6 43.1 42-52 % Mean Corpuscular Volume 95.5 95.8 80-100 fL Mean Corpuscular Hemoglobin 31.8 32.0 25-34 pg Mean Corpuscular Hemoglobin Concent 33.3 33.4 32-36 g/dl Platelet Count 158 161 130-400 K/uL Mean Platelet Volume 10.2 10.5 7.4-10.4 fL Neutrophils (%) (Auto) 87.4 % Lymphocytes (%) (Auto) 5.9 % Monocytes (%) (Auto) 3.0 % Eosinophils (%) (Auto) 0.0 % Basophils (%) (Auto) 0.1 % Neutrophils # (Auto) 6.34 1.4-6.5 K/uL Lymphocytes # (Auto) 0.43 1.2-3.4 K/uL Monocytes # (Auto) 0.22 0.11-0.59 K/uL Eosinophils # (Auto) 0.00 0-0.5 K/uL Basophils # (Auto) 0.01 0-0.2 K/uL RDW Standard Deviation 54.7 53.5 36.4-46.3 fL RDW Coefficient of Variation 15.7 15.2 11.5-14.5 % Immature Granulocyte % (Auto) 3.6 % Immature Granulocyte # (Auto) 0.26 0.00-0.02 K/uL Prothrombin Time 11.2 12.3 9.0-12.0 SECONDS Prothromb Time International Ratio 1.1 1.2 0.9-1.1 Activated Partial Thromboplast Time 22.6 21.0-31.0 SECONDS Partial Thromboplastin Ratio 0.9 Sodium Level 141 139 136-145 mmol/L Potassium Level 4.1 4.2 3.5-5.1 mmol/L Chloride Level 108 103 98-107 mmol/L Carbon Dioxide Level 23 28 21-32 mmol/L Anion Gap 10.0 8.0 3-11 mmol/L Blood Urea Nitrogen 14 18 7-18 mg/dl Creatinine 1.13 0.73 0.60-1.40 mg/dl Est Creatinine Clear Calc Drug Dose 75.1 116.3 ml/min Estimated GFR () 91.8 131.7 Estimated GFR (Non- 79.2 113.6 BUN/Creatinine Ratio 12.0 24.3 10-20 Random Glucose 126 130 70-99 mg/dl Calcium Level 8.8 8.5 8.5-10.1 mg/dl Total Bilirubin 0.4 0.2-1 mg/dl Aspartate Amino Transf (AST/SGOT) 17 15-37 U/L Alanine Aminotransferase (ALT/SGPT) 53 12-78 U/L Alkaline Phosphatase 58 45-117 U/L Troponin I < 0.015 < 0.015 < 0.015 0-0.045 ng/ml Pro-B-Type Natriuretic Peptide 48 0-450 pg/ml Total Protein 6.8 6.4-8.2 gm/dl Albumin 3.7 3.4-5.0 gm/dl Globulin 3.1 2.5-4.0 gm/dl Albumin/Globulin Ratio 1.2 0.9-2 Lyme Disease IgG Antibody NEG NEG Lyme Disease IgM Antibody NEG NEG Urine Color YELLOW Urine Appearance CLEAR CLEAR Urine pH 8.0 4.5-7.5 Urine Specific [place] 1.015 1.000-1.030 Urine Protein NEG NEG Urine Glucose (UA) NEG NEG Urine Ketones NEG NEG Urine Occult Blood NEG NEG Urine Nitrite NEG NEG Urine Bilirubin NEG NEG Urine Urobilinogen NEG NEG Urine Leukocyte Esterase NEG NEG Diagnostic Radiology No acute findings or changes on cxr Impression Assessment and Plan SHORTNESS OF BREATH * Patient with history of bronchiectasis * Bronchoscopy with Dr. Weller this past Tuesday * AFB smear negative * Culture negative * Fungal smear pending * Cytology pending * No hypoxia * This is most likely multifactorial to pectus excavatum, chronic bronchiectasis , persistent breathlessness * Has no tolerated vibratory vest in the past secondary to pain from pectus excavatum * Limited cough so sputum may be changing distribution based on posture and exacerbating his symptoms * Will order a vibratory bed with module and see if that helps to mobilize secretion * I do not see any an indication for antibiotics at this time as bronch lavage was negative, he if afebrile, and has no significant white count * Await final culture for DEEJAY/MAC and fungal smear * Continue Rhinocort, Dulera BID, Spiriva, Montelukast daily * There is no specific role for Pulmicort if the patient is on IV steroids * I also do not think it would benefit the patient to add Mucomyst ( acetylcysteine) nebs as the chest X-ray is clear and auscultation revealed good aeration in all lung zones * Would do a rapid taper of prednisone as steroids have not shown any significant role in this patient's care * Will discuss role of pulmonary rehab with Dr. Weller on Tuesday * Treat supportively Hx DVT/PE * Coumadin daily * INR is subtherapeutic at 1.1 * Bridge with therapeutic Enoxaparin at 1mg/kg BID DVT PROPHYLAXIS * Enoxaparin * Ambulate as tolerated Thank you for this consult. Please refer to Dr. Egan's addendum for further recommendations
--- NOTE | 2017-08-20 15:29 | Progress Note ---
Subjective Date of Service: Aug 20, 2017. Subjective Pt evaluation today including: conversation w/ patient, physical exam, lab review, conversation w/ strategy execution consultant, review of inpatient medication list Pain: no pain PO Intake: adequate Voiding: no voiding problems breathing is improved compared to yesterday, titrated off of oxygen eating well reviewed labs discussed with Kyler Thapa with pulmonology, appreciate recommendations Problem List Medical Problems: (1) Bilateral pneumonia Status: Acute (2) Bilateral pneumonia Status: Acute (3) Dizziness Status: Acute (4) Failure of outpatient treatment Status: Acute (5) Leukopenia Status: Acute (6) Pain of left calf Status: Acute (7) Right otitis media Status: Acute (8) Supratherapeutic INR Status: Acute (9) Thrombocytopenia Status: Acute (10) Vomiting Status: Acute Review of Systems Constitutional: + weakness, + fatigue Respiratory: + cough, + dyspnea on exertion All Other Systems: Reviewed and Negative Medications Current Inpatient Medications Medications (Trade) Dose Ordered Sig/Dena Route Start Time Stop Time Status Last Admin Dose Admin Acetaminophen (Tylenol Tab) 650 mg Q4H PRN PO 08/19/17 18:00 09/18/17 17:59 Al Hydrox/Mg Hydrox/Simethicone (Maalox Max Susp) 15 ml Q4H PRN PO 08/19/17 18:00 09/18/17 17:59 Magnesium Hydroxide (Milk Of Magnesia Susp) 30 ml Q6H PRN PO 08/19/17 18:00 09/18/17 17:59 Polyethylene (Miralax Powder Packet) 17 gm DAILY PRN PO 08/19/17 18:00 09/18/17 17:59 Ondansetron HCl (Zofran Inj) 4 mg Q6H PRN IV 08/19/17 18:00 09/18/17 17:59 Methylprednisolone Sodium Succinate 40 mg/Syringe 0.64 ml @ 1.5 mls/min Q6H IV 08/20/17 00:00 09/19/17 00:00 08/20/17 11:06 1.5 MLS/MIN Ascorbic Acid (Vitamin C Tab) 1,000 mg DAILY PO 08/20/17 09:00 09/19/17 08:59 08/20/17 07:51 1,000 MG Budesonide (Rhinocort Aq Nasal [place]) 2 sprays QAM SIDNEY 08/20/17 09:00 09/19/17 08:59 08/20/17 07:51 2 SPRAYS Calcium/Vitamin D (Caltrate Plus Tab) 1 tab BID PO 08/19/17 21:00 09/18/17 20:59 08/20/17 07:51 1 TAB Diltiazem HCl (Cardizem Tab) 60 mg HS PO 08/19/17 21:00 09/18/17 20:59 08/19/17 21:32 60 MG Fish Oil ([place]-3 (Purified Fish Oil) Cap) 1 gm QAM PO 08/20/17 09:00 09/19/17 08:59 08/20/17 07:51 1 GM Levothyroxine Sodium (Synthroid Tab) 25 mcg DAILYBB PO 08/20/17 06:30 09/19/17 06:59 08/20/17 05:46 25 MCG Loratadine (Claritin Tab) 10 mg QAM PO 08/20/17 09:00 09/19/17 08:59 08/20/17 07:51 10 MG Montelukast Sodium (Singulair Tab) 10 mg QPM PO 08/19/17 21:00 09/18/17 20:59 08/19/17 21:32 10 MG Multivitamins/ Minerals (Multivitamin W/ Minerals Tab) 1 tab QAM PO 08/20/17 09:00 09/19/17 08:59 08/20/17 07:51 1 TAB Tiotropium [place] (Spiriva Handihaler Inhaler) 30 puff QAM INH 08/20/17 09:00 09/19/17 08:59 08/20/17 07:51 1 PUFF Warfarin Sodium (Coumadin Tab) 7.5 mg SuTuWeThSa@1600 PO 08/20/17 16:00 09/19/17 15:59 Warfarin Sodium (Coumadin Tab) 10 mg MoFr@1600 PO 08/19/17 21:00 09/18/17 20:59 08/19/17 21:33 10 MG Miscellaneous Information (Order Awaiting Action) 1 ea QS N/A 08/20/17 00:00 09/19/17 00:00 Miscellaneous Information (Order Awaiting Action) 1 ea QS N/A 08/20/17 00:00 09/19/17 00:00 Pantoprazole Sodium (Protonix Tab) 40 mg QAM PO 08/20/17 09:00 09/19/17 08:59 08/20/17 07:51 40 MG Ipratropium [place] (Atrovent 0.02% 0.5MG/2.5ML Neb) 0.5 mg QIDR INH 08/20/17 08:00 09/19/17 07:59 08/20/17 11:08 0.5 MG Levalbuterol (Xopenex 1.25MG/ 0.5ML Neb) 1.25 mg QIDR INH 08/20/17 08:00 09/19/17 07:59 08/20/17 11:08 1.25 MG Enoxaparin Sodium (Lovenox Inj) 60 mg Q12@0600,1800 SQ 08/20/17 06:00 09/19/17 05:59 08/20/17 05:46 60 MG Miscellaneous (Iv Fluids Completed) 1 ea PRN PRN N/A 08/19/17 22:45 08/19/18 22:44 Objective Vital Signs Date Time Temp Pulse Resp B/P (MAP) Pulse Ox O2 Delivery O2 Flow Rate FiO2 08/20/17 11:08 90 14 96 Nasal Cannula 2.0 08/20/17 08:00 Nasal Cannula 2.0 08/20/17 07:46 36.8 75 24 121/76 (91) 98 Nasal Cannula 2.0 08/20/17 07:20 82 14 99 Nasal Cannula 3.0 08/20/17 00:01 Nasal Cannula 3.0 08/19/17 22:36 36.8 92 18 106/69 (81) 96 Nasal Cannula 3.0 08/19/17 20:04 36.8 65 18 121/72 97 Nasal Cannula 3.0 08/19/17 18:13 78 20 103/70 98 Room Air 08/19/17 16:19 82 20 129/78 97 Nasal Cannula 2.0 08/19/17 16:01 71 Physical Exam General Appearance: no apparent distress, + thin Eyes: normal inspection, EOMI, sclerae normal Neck: supple, no adenopathy, no JVD, trachea midline Respiratory/Chest: chest non-tender, lungs clear, normal breath sounds, no respiratory distress, no accessory muscle use, + pertinent finding (pectus excavatum deformity) Cardiovascular: regular rate, rhythm, no edema, no gallop, no JVD, no murmur Abdomen: normal bowel sounds, non tender, soft, no organomegaly Extremities: normal range of motion, non-tender, normal inspection, no pedal edema, no calf tenderness, pelvis stable 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, no motor/sensory deficits, alert, normal mood/affect, oriented x 3 Skin: normal color, warm/dry, no rash Laboratory Results Last 24 Hours Test 08/19/17 16:00 08/19/17 22:20 08/20/17 06:49 Urine Color YELLOW Urine Appearance CLEAR Urine pH 8.0 Urine Specific [place] 1.015 Urine Protein NEG Urine Glucose (UA) NEG Urine Ketones NEG Urine Occult Blood NEG Urine Nitrite NEG Urine Bilirubin NEG Urine Urobilinogen NEG Urine Leukocyte Esterase NEG Troponin I < 0.015 ng/ml < 0.015 ng/ml White Blood Count 7.80 K/uL Red Blood Count 4.50 M/uL Hemoglobin 14.4 g/dL Hematocrit 43.1 % Mean Corpuscular Volume 95.8 fL Mean Corpuscular Hemoglobin 32.0 pg Mean Corpuscular Hemoglobin Concent 33.4 g/dl RDW Standard Deviation 53.5 fL RDW Coefficient of Variation 15.2 % Platelet Count 161 K/uL Mean Platelet Volume 10.5 fL Prothrombin Time 12.3 SECONDS Prothromb Time International Ratio 1.2 Sodium Level 139 mmol/L Potassium Level 4.2 mmol/L Chloride Level 103 mmol/L Carbon Dioxide Level 28 mmol/L Anion Gap 8.0 mmol/L Blood Urea Nitrogen 18 mg/dl Creatinine 0.73 mg/dl Est Creatinine Clear Calc Drug Dose 116.3 ml/min Estimated GFR () 131.7 Estimated GFR (Non- 113.6 BUN/Creatinine Ratio 24.3 Random Glucose 130 mg/dl Calcium Level 8.5 mg/dl Assessment and Plan 42 y/o male with a history of asthma, bronchiectasis, h/o PE, chronic LLE DVT, hypothyroidism, and GERD w/esophagitis who presented to the ED on 08/19 with worsening shortness of breath. Pt afebrile, tachycardic and tachypneic on arrival. Non-hypoxic, although he was eventually placed on 2L NC due to his SOB and reported feeling better. CXR no acute disease. EKG no ischemic changes. INR 1.1. Worsening shortness of breath-- multifactorial, combination of pectus excavatum , bronchiectasis, breathlessness - titrated off of oxygen today -Solu-Medrol 40 mg IV q6h initially, will taper steroids quickly and then back on home Prednisone -Xopenex/Atrovent nebs QIDR and q2h prn SOB/wheezing -Continue Pulmicort BID, Rhinocort, Dulera BID, Spiriva. Pt brought Pulmicort and Dulera from home - no plans for antibiotics - will place in vibratory bed to try to mobilize secretions Asthma, allergies -Continue Singulair, Claritin -Pt on diltiazem 60 mg PO qd for asthma per outpt records, prescribed by pulmonology provider H/o PE, chronic LLE DVT, subtherapeutic INR--CTA chest 2 weeks ago was negative for PE, but pt was taken off his Coumadin for the bronchoscopy 3 days ago and has been subtherapeutic for several days at this point -Start Lovenox 1 mg/kg SC BID -Continue warfarin 10 mg Tuesday/Tuesday, 7.5 mg PO all other days - INR 1.2 today Hypothyroidism -Continue Synthroid 25 mcg PO qd GERD w/esophagitis -Prilosec converted to Protonix DVT prophylaxis -Lovenox as above, bridge warfarin -VJ Tyler Code Status -Level I, FULL RESUSCITATION STATUS
[2017-08-20] MEDS ORDERED: WARFARIN SOD 7.5 MG TAB PO SCH (16:00)
[2017-08-20] MEDS: MONTELUKAST SOD 10 MG TAB PO SCH (20:36)
[2017-08-20] MEDS: DILTIAZEM HCL 60 MG TAB PO SCH (20:36)
[2017-08-21] MEDS: ENOXAPARIN 60 MG/0.6 ML SYR SQ SCH (05:43)
[2017-08-21] MEDS: METHYLPREDNISOLONE IV 40 MG in SYRINGE 0 ML IV SCH (05:43)
[2017-08-21] MEDS: LEVOTHYROXINE 25 MCG TAB PO SCH (05:43)
[2017-08-21 06:05] LABS: HEMATOCRIT 41.9 % (42-52); HEMOGLOBIN 13.8 g/dL (14.0-18.0); MEAN CELL VOLUME 95.7 fL (80-100); MEAN CORPUSCULAR HEMOGLOBIN 31.5 pg (25-34); MEAN CORPUSCULAR HGB CONC 32.9 g/dl (32-36); MEAN PLATELET VOLUME 10.2 fL (7.4-10.4); PLATELET COUNT 155 K/uL (130-400); RED CELL DISTRIBUTION WIDTH CV 15.1 % (11.5-14.5); RED CELL DISTRIBUTION WIDTH SD 53.5 fL (36.4-46.3); WHITE BLOOD COUNT 12.34 K/uL (4.8-10.8)
[2017-08-21 06:33] LABS: INR 1.5 (0.9-1.1)
[2017-08-21 06:40] VITALS: BP 124/87; PULSE 88; TEMP 36.6; O2SAT 95
[2017-08-21 06:42] LABS: CALCIUM 8.5 mg/dl (8.5-10.1); CREATININE 0.79 mg/dl (0.60-1.40); POTASSIUM 3.7 mmol/L (3.5-5.1)
[2017-08-21 07:05] VITALS: PULSE 88; O2SAT 95
[2017-08-21] MEDS: IPRATROPIUM BROMIDE NEB SOLN 0.02% 2.5 ML VIAL INH SCH (07:06)
[2017-08-21] MEDS: LEVALBUTEROL 1.25MG/0.5ML NEB INH SCH (07:07)
[2017-08-21] MEDS: LORATADINE 10 MG TAB PO SCH (08:14)
[2017-08-21] MEDS: PANTOprazole SOD 40 MG TAB PO SCH (08:14)
[2017-08-21] MEDS: CALCIUM 600MG + VIT D 400 IU TAB PO SCH (08:14)
[2017-08-21] MEDS: ASCORBIC ACID 500 MG TAB PO SCH (08:14)
[2017-08-21] MEDS: OMEGA-3 (PURIFIED FISH OIL) 1 GM CAP PO SCH (08:14)
[2017-08-21] MEDS: CEROVITE ADV FORMULA TAB PO SCH (08:14)
[2017-08-21] MEDS: TIOTROPIUM BROMIDE 5 PUFF/90 MCG INH INH SCH (08:15)
[2017-08-21] MEDS: BUDESONIDE AQ (RHINOCORT AQ) NASAL SPRAY 32 MCG NAE SCH (08:16)
[2017-08-21] MEDS ORDERED: PRED10TA PO (09:50)
--- NOTE | 2017-08-21 09:53 | Discharge Instructions ---
Discharge Instructions Date of Service Aug 21, 2017. Admission Reason for Admission: Shortness Of Breath Discharge Discharge Diagnosis / Problem: Dyspnea due to bronchiectasis, pectus excavatum Discharge Goals Goal(s): Decrease discomfort, Improve function, Improve disease control Activity Recommendations Activity Limitations: resume your previous activity . Instructions / Follow-Up Instructions / Follow-Up Medications: - PREDNISONE: going to taper you off of Prednisone over the next week, 40mg x 2 days then 30mg x 2 days then 20mg x 2 days then 10mg x 2 days then stop In summary, your dyspnea is felt to be multifactorial, combination of bronchiectasis, pectus excavatum, breathlessness. no evidence of pneumonia no wheezing to suggest acute bronchitis significant improvement with vibratory bed, will try to make arrangements for home continue chronic inhalers, taper off of Prednisone over the next week close follow up with Dr. Morrissey/Nithin FOLLOW UP - 1-2 weeks with pulmonary, call to schedule appointment if not already done Current Hospital Diet Patient's current hospital diet: Gluten Free Diet Discharge Diet Recommended Diet: Gluten Free Diet Pending Studies Studies pending at discharge: no Medical Emergencies . Who to Call and When: Medical Emergencies: If at any time you feel your situation is an emergency, please call 911 immediately. . Non-Emergent Contact Non-Emergency issues call your: [employer] Call Non-Emergent contact if: you have any medication questions any worsening breathing . . "Provider Documentation" section prepared by Trace Lares. . VTE Core Measure Inpt VTE Proph given/why not?: Warfarin (Coumadin) [place] Drug Monitoring Program Search Results: no issues identified
--- NOTE | 2017-08-21 09:55 | Pulmonology Progress Note ---
Pulmonary Progress Note Date of Service Aug 21, 2017. Attending Dr. Egan Subjective Mr. Vazquez is a 42-year-old male admitted yesterday for breathlessness. He underwent bronchoscopy with Dr. Weller earlier in the week. Results of the bronchoscopy thus far are negative for acute findings. Fungal culture is still pending. Bacterial cultures are negative. Initial smear on AFB was negative. AFB cultures typically takes 6-8 weeks for full disclosure. Mr. Vazquez had no hypoxia and no acute findings on chest x-ray. I did put him on a percussion bed yesterday and he had significant improvement in aeration as well as resolution of symptoms. Today Mr. Vazquez has no shortness of breath or breathlessness. He continues to oxygenate well on room air. His WBCs are slightly elevated but he was placed on methylprednisolone 40 mg 4 times a day on admission. He has no new acute findings and is feeling appropriate for discharge home. Objective Vital Signs - as noted below Laboratory Data - as noted below Physical Exam: General - NAD Eyes - No icterus, gaze conjugate ENT - Mucosa moist, no lesions or candidiasis Neck - Supple, No JVD Lungs - No bronchospasm, rales, or rhonchi.. Fine rales present yesterday have resolved. All lung zones are clear to auscultation. Heart - Regular, rate controlled Abdomen - Soft, NT, ND, BS present Extremities - No edema, pedal pulses intact Neuro - A&OX3 Assessment & Plan BREATHLESSNESS / SHORTNESS OF BREATH * This most likely is multifactorial to his chronic bronchiectasis, pectus excavatum, and air hunger * Patient was placed on trial with percussion bed and seemed to improve significantly although he had minimal sputum production he felt as though mucous was moving * Patient's is investigating retail options of percussion for purchase * A pulmonary vest or pneumatic vest is not an option secondary to pain from his bony structure * We'll encourage follow-up with pulmonary and continue investigation into non- conventional modalities to reduce symptoms HISTORY OF BRONCHOSCOPY WITH PSEUDOMONAS * Bronchoscopy this past week revealed no evidence of bacteriology * Outpatient follow-up appointment already scheduled with Dr. Weller for 08/23/17 * No indication for ongoing antibiotics at this time other than those prescribed outpatient * Would return patient to his home dose of prednisone * Continue outpatient follow-up DISPOSITION * Patient to be discharged home today Thank you for including us in the care of this patient. We will sign off at this time. Please feel free to reconsult if patient declines clinically Physician Supervision Note: I was present with Kyler Thapa PA-C during the history and exam. I discussed the case with the resident and agree with the findings and plan as documented in the note. Documented By: Arnie Egan MD Data Medications: Current Inpatient Medications Medications (Trade) Dose Ordered Sig/Dena Route Start Time Stop Time Status Last Admin Dose Admin Acetaminophen (Tylenol Tab) 650 mg Q4H PRN PO 08/19/17 18:00 09/18/17 17:59 Al Hydrox/Mg Hydrox/Simethicone (Maalox Max Susp) 15 ml Q4H PRN PO 08/19/17 18:00 09/18/17 17:59 Magnesium Hydroxide (Milk Of Magnesia Susp) 30 ml Q6H PRN PO 08/19/17 18:00 09/18/17 17:59 Polyethylene (Miralax Powder Packet) 17 gm DAILY PRN PO 08/19/17 18:00 09/18/17 17:59 Ondansetron HCl (Zofran Inj) 4 mg Q6H PRN IV 08/19/17 18:00 09/18/17 17:59 Methylprednisolone Sodium Succinate 40 mg/Syringe 0.64 ml @ 1.5 mls/min Q6H IV 08/20/17 00:00 09/19/17 00:00 08/21/17 05:43 1.5 MLS/MIN Ascorbic Acid (Vitamin C Tab) 1,000 mg DAILY PO 08/20/17 09:00 09/19/17 08:59 08/21/17 08:14 1,000 MG Budesonide (Rhinocort Aq Nasal [place]) 2 sprays QAM SIDNEY 08/20/17 09:00 09/19/17 08:59 08/21/17 08:16 2 SPRAYS Calcium/Vitamin D (Caltrate Plus Tab) 1 tab BID PO 08/19/17 21:00 09/18/17 20:59 08/21/17 08:14 1 TAB Diltiazem HCl (Cardizem Tab) 60 mg HS PO 08/19/17 21:00 09/18/17 20:59 08/20/17 20:36 60 MG Fish Oil ([place]-3 (Purified Fish Oil) Cap) 1 gm QAM PO 08/20/17 09:00 09/19/17 08:59 08/21/17 08:14 1 GM Levothyroxine Sodium (Synthroid Tab) 25 mcg DAILYBB PO 08/20/17 06:30 09/19/17 06:59 08/21/17 05:43 25 MCG Loratadine (Claritin Tab) 10 mg QAM PO 08/20/17 09:00 09/19/17 08:59 08/21/17 08:14 10 MG Montelukast Sodium (Singulair Tab) 10 mg QPM PO 08/19/17 21:00 09/18/17 20:59 08/20/17 20:36 10 MG Multivitamins/ Minerals (Multivitamin W/ Minerals Tab) 1 tab QAM PO 08/20/17 09:00 09/19/17 08:59 08/21/17 08:14 1 TAB Tiotropium [place] (Spiriva Handihaler Inhaler) 30 puff QAM INH 08/20/17 09:00 09/19/17 08:59 08/21/17 08:15 30 PUFF Warfarin Sodium (Coumadin Tab) 7.5 mg SuTuWeThSa@1600 PO 08/20/17 16:00 09/19/17 15:59 08/20/17 15:39 7.5 MG Warfarin Sodium (Coumadin Tab) 10 mg MoFr@1600 PO 08/19/17 21:00 09/18/17 20:59 08/19/17 21:33 10 MG Miscellaneous Information (Order Awaiting Action) 1 ea QS N/A 08/20/17 00:00 09/19/17 00:00 Miscellaneous Information (Order Awaiting Action) 1 ea QS N/A 08/20/17 00:00 09/19/17 00:00 Pantoprazole Sodium (Protonix Tab) 40 mg QAM PO 08/20/17 09:00 09/19/17 08:59 08/21/17 08:14 40 MG Ipratropium [place] (Atrovent 0.02% 0.5MG/2.5ML Neb) 0.5 mg QIDR INH 08/20/17 08:00 09/19/17 07:59 08/21/17 07:06 0.5 MG Levalbuterol (Xopenex 1.25MG/ 0.5ML Neb) 1.25 mg QIDR INH 08/20/17 08:00 09/19/17 07:59 08/21/17 07:07 1.25 MG Enoxaparin Sodium (Lovenox Inj) 60 mg Q12@0600,1800 SQ 08/20/17 06:00 09/19/17 05:59 08/20/17 17:33 60 MG Miscellaneous (Iv Fluids Completed) 1 ea PRN PRN N/A 08/19/17 22:45 08/19/18 22:44 Vital Signs: Date Time Temp Pulse Resp B/P (MAP) Pulse Ox O2 Delivery O2 Flow Rate FiO2 08/21/17 08:00 Room Air 08/21/17 07:05 88 14 95 Room Air 08/21/17 06:40 36.6 88 18 124/87 (99) 95 Room Air 08/20/17 23:50 Room Air 08/20/17 23:16 36.9 111 18 119/72 (88) 96 Room Air 08/20/17 19:45 84 14 94 Room Air 08/20/17 16:25 95 Room Air 08/20/17 15:39 37.1 104 16 112/70 (84) 95 Room Air 08/20/17 15:29 86 14 97 Room Air 08/20/17 11:08 90 14 96 Nasal Cannula 2.0 Laboratory Results: Last 24 Hours Test 08/21/17 05:31 White Blood Count 12.34 K/uL Red Blood Count 4.38 M/uL Hemoglobin 13.8 g/dL Hematocrit 41.9 % Mean Corpuscular Volume 95.7 fL Mean Corpuscular Hemoglobin 31.5 pg Mean Corpuscular Hemoglobin Concent 32.9 g/dl RDW Standard Deviation 53.5 fL RDW Coefficient of Variation 15.1 % Platelet Count 155 K/uL Mean Platelet Volume 10.2 fL Prothrombin Time 15.9 SECONDS Prothromb Time International Ratio 1.5 Sodium Level 140 mmol/L Potassium Level 3.7 mmol/L Chloride Level 106 mmol/L Carbon Dioxide Level 28 mmol/L Anion Gap 6.0 mmol/L Blood Urea Nitrogen 20 mg/dl Creatinine 0.79 mg/dl Est Creatinine Clear Calc Drug Dose 107.4 ml/min Estimated GFR () 127.5 Estimated GFR (Non- 110.0 BUN/Creatinine Ratio 24.6 Random Glucose 145 mg/dl Calcium Level 8.5 mg/dl
[2017-08-21 10:10] VITALS: BP 124/87; PULSE 88; TEMP 36.6; O2SAT 95
--- NOTE | 2017-08-21 10:20 | Discharge Summary ---
Discharge Summary Date of Service Aug 21, 2017. Discharge Summary Admission Date: Aug 19, 2017 at 18:33 Discharge Date: Aug 21, 2017 Discharge Disposition: Home Principal Diagnosis: Dyspnea Problems/Secondary Diagnoses: bronchiectasis pectus excavatum Procedures: none Consultations: Pulmonology Medication Reconciliation Changed Medications: Prednisone (Prednisone) 10 Mg Tab 40 MG PO DAILY for 8 Days, #20 TAB (Changed from: 10 MG; QID) 40mg x 2 days, 30mg x 2 days, 20mg x 2 days, 10mg x 2 days then stop Continued Medications: Ascorbic Acid (Vitamin C) 500 Mg Tab 1000 MG PO DAILY Budesonide (Inhalation) (Pulmicort Flexhaler) 180 Mcg/Act Inh 2 PUFFS INH BID for 30 Days, #1 INHALER 6 Refills Budesonide (Nasal) (Rhinocort Allergy) 32 Mcg/Act [place] 2 SPRAYS SIDNEY QAM Calcium/Vitamin D (Os-Tommy 500 Plus D) Tab 600 MG PO BID, TAB Cholecalciferol (Vitamin D3) 2,000 Unit Cap 2000 INTER.UNIT PO QAM Denosumab (Prolia) 60 Mg/1 Ml Inj 1 DOSE INJ UD Diclofenac Sodium (Topical) (Diclofenac Sodium) 1 % Gel 1 DOSE TOP PRN PRN for PRN Diltiazem Hcl (Cardizem) 60 Mg Tab 60 MG PO HS, TAB Fish Oil ([place]-3) 1 Ea Cap 1 CAP PO QAM, CAP Ipratropium-Albuterol (Duoneb) 3 Ml Nebu 1 TREATMENT INH Q4H, INHA Levalbuterol Hcl (Levalbuterol) 1.25 Mg/0.5 Ml Neb 1 AMP NEB Q4H PRN for SOB/Wheezing Levalbuterol Tartrate (Levalbuterol Tartrate Hfa) 45 Mcg/Act Aer 3 PUFFS PO BID Levothyroxine Sodium (Synthroid) 25 Mcg Tab 25 MCG PO QAM, TAB Loratadine (Claritin) 10 Mg Tab 10 MG PO QAM, 0 Refills Mometasone Furoate-Formoterol (Dulera 200/5 Mcg) 1 Aer Aer 2 PUFFS INH BID Montelukast Sod (Montelukast Sodium) 10 Mg Tab 10 MG PO QPM Multivitamins/Minerals (Mvi With Minerals) Tab 1 TAB PO QAM, TAB Omeprazole (Prilosec) 20 Mg Capcr 40 MG PO QAM, 0 Refills Tiotropium [place] (Spiriva Handihaler) 30 Puff/540 Mcg Aerp 1 CAP INH QAM, INHALER Warfarin Sod (Jantoven) 5 Mg Tab 10 MG PO 2XWK, TAB TAKES 10MG ON TUESDAY AND TUESDAY Warfarin Sod (Jantoven) 5 Mg Tab 7.5 MG PO 5XWK, TAB TAKES 7.5MG ON TUESDAY, TUESDAY, TUESDAY, TUESDAY AND TUESDAY Discharge Exam Patient feeling much better, feels that the vibratory bed helped a lot. Making arrangements for home vibratory bed or backpack. Discussed with Kyler Thapa, cleared for discharge. Review of Systems: Constitutional: No fever, No chills, No sweats, No weight loss, No weakness , No fatigue, No problem reported Eyes: No worsening of vision, No eye pain, No redness, No discharge, No diplopia, No problem reported ENT: No hearing loss, No unusual epistaxis, No nasal symptoms, No sore throat, No tinnitus, No dental problems, No trouble swallowing, No problem reported Respiratory: + cough, No sputum, No wheezing, No shortness of breath, No dyspnea on exertion, No dyspnea at rest, No hemoptysis, No problem reported Cardiovascular: No chest pain, No orthopnea, No PND, No edema, No claudication, No palpitations, No problem reported Abdomen: No pain, No nausea, No vomiting, No diarrhea, No constipation, No GI bleeding, No problem reported Musculoskeletal: No joint pain, No muscle pain, No swelling, No calf pain, No problem reported Genitourinary - Female: No dysuria, No urinary frequency, No urinary urgency , No urinary incontinence, No urinary retention, No hematuria Neurologic: No memory loss, No paralysis, No weakness, No numbness/tingling , No vertigo, No balance problems, No problem reported Psychiatric: No depression symptoms, No anhedonism, No anxiety, No insomnia , No substance abuse, No problem reported Endocrine: No fatigue, No excessive thirst, No excessive urination, No problem reported Hematologic / Lymphatic: No abnormal bleeding/bruising, No clotting problems , No swollen lymph nodes, No night sweats, No problem reported Integumentary: No rash, No itch, No new/changing skin lesions, No color change, No bleeding, No problem reported Physical Exam: General Appearance: no apparent distress, + thin Eyes: normal inspection, EOMI, sclerae normal ENT: normal ENT inspection, hearing grossly normal, pharynx normal Neck: supple, no adenopathy, no JVD, trachea midline Respiratory/Chest: chest non-tender, lungs clear, normal breath sounds, no respiratory distress, no accessory muscle use, + pertinent finding (pectus excavatum) Cardiovascular: regular rate, rhythm, no edema, no gallop, no JVD, no murmur , normal peripheral pulses Abdomen / GI: normal bowel sounds, non tender, soft, no organomegaly Extremities: normal inspection, no calf tenderness, normal capillary refill , no pedal edema, normal range of motion, pelvis stable 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 Pt afebrile, tachycardic and tachypneic on arrival. Non-hypoxic, although he was eventually placed on 2L NC due to his SOB and reported feeling better. CXR no acute disease. EKG no ischemic changes. INR 1.1. Worsening shortness of breath-- multifactorial, combination of pectus excavatum , bronchiectasis, breathlessness - titrated off of oxygen yesterday -Solu-Medrol 40 mg IV q6h initially, will taper steroids quickly and then back on home Prednisone will taper off Prednisone over the next week, 40mg x 2 days, 30mg x 2 days, 20mg x 2 days then 10mg x 2 days -Xopenex/Atrovent nebs QIDR and q2h prn SOB/wheezing -Continue Pulmicort BID, Rhinocort, Dulera BID, Spiriva. Pt brought Pulmicort and Dulera from home - no plans for antibiotics - improvement in breathing with vibratory bed, will work on getting at home, or vibratory backpack - follow up closely with pulmonology Asthma, allergies -Continue Singulair, Claritin -Pt on diltiazem 60 mg PO qd for asthma per outpt records, prescribed by pulmonology provider H/o PE, chronic LLE DVT, subtherapeutic INR--CTA chest 2 weeks ago was negative for PE, but pt was taken off his Coumadin for the bronchoscopy 3 days ago and has been subtherapeutic for several days at this point -Continue warfarin 10 mg Tuesday/Tuesday, 7.5 mg PO all other days - INR 1.3 today - anticipate therapeutic tomorrow, received Lovenox this AM, no plans for Lovenox on discharge Hypothyroidism -Continue Synthroid 25 mcg PO qd GERD w/esophagitis -Prilosec converted to Protonix DVT prophylaxis -Lovenox as above, bridge warfarin -VJ lenz and BHAVINs Code Status -Level I, FULL RESUSCITATION STATUS Total Time Spent: Less than 30 minutes This includes examination of the patient, discharge planning, medication reconciliation, and communication with other providers. Discharge Instructions Please refer to the electronic Patient Visit Report (Discharge Instructions) for additional information. Follow-Up Pulmonology in 1-2 weeks Additional Copies To Barrington Adorno M.D.; Arnaud Weller MD
== END 2017-08-21 11:26 | disposition home or self-care (01) ==
LOC: C.EDB 13:50 → ENRESERV 18:27 → C.MS2W 18:33 → EDBEDREQ 18:33
PROVIDERS: ADMIT Family Medicine; ATTEND Internal Medicine
DX: R06.00 Dyspnea, unspecified (principal); J47.9 Bronchiectasis, uncomplicated; Q67.6 Pectus excavatum; J45.909 Unspecified asthma, uncomplicated; E03.9 Hypothyroidism, unspecified; Z79.01 Long term (current) use of anticoagulants; Z79.899 Other long term (current) drug therapy; Z86.718 Personal history of other venous thrombosis and embolism; Z88.5 Allergy status to narcotic agent

== ENCOUNTER → 2017-12-06 | Outpatient (CLI) | payer OTHER ==
[~2017-12-06] MED LIST changes: +LEVA45AE PO; -WARF-246 PO; +WARF5TAB7 PO
== END | disposition home or self-care (01) ==
LOC: C.LABBFT 11:01
PROVIDERS: ATTEND Internal Medicine Rheumatology
DX: M81.0 Age-related osteoporosis without current pathological fracture (principal); E55.9 Vitamin D deficiency, unspecified; E61.8 Deficiency of other specified nutrient elements

== ENCOUNTER → 2018-03-16 | Outpatient (CLI) | payer OTHER ==
[~2018-03-16] MED LIST changes: +IPRA-64 INH; -IPRASOL4 INH
[2018-03-16 12:33] LABS: BASO % 0.3 %; BASO ABS # 0.01 K/uL (0-0.2); EOS % 0.8 %; EOS ABS # 0.03 K/uL (0-0.5); HEMATOCRIT 42.7 % (42-52); HEMOGLOBIN 13.9 g/dL (14.0-18.0); IG# 0.02 K/uL (0.00-0.02); LYMPH % 22.9 %; LYMPH ABS # 0.86 K/uL (1.2-3.4); MEAN CELL VOLUME 93.6 fL (80-100); MEAN CORPUSCULAR HEMOGLOBIN 30.5 pg (25-34); MEAN CORPUSCULAR HGB CONC 32.6 g/dl (32-36); MEAN PLATELET VOLUME 10.6 fL (7.4-10.4); MONO % 13.6 %; MONO ABS # 0.51 K/uL (0.11-0.59); NEUT % 61.9 %; NEUT ABS # 2.33 K/uL (1.4-6.5); PLATELET COUNT 144 K/uL (130-400); RED CELL DISTRIBUTION WIDTH CV 16.2 % (11.5-14.5); RED CELL DISTRIBUTION WIDTH SD 55.7 fL (36.4-46.3); WHITE BLOOD COUNT 3.76 K/uL (4.8-10.8)
[2018-03-16 13:15] LABS: ALBUMIN 3.5 gm/dl (3.4-5.0); ALKALINE PHOSPHATASE 46 U/L (45-117); ALT/SGPT 28 U/L (12-78); AST/SGOT 16 U/L (15-37); BLOOD UREA NITROGEN 12 mg/dl (7-18); CALCIUM 8.4 mg/dl (8.5-10.1); CARBON DIOXIDE 25 mmol/L (21-32); CREATININE 0.72 mg/dl (0.60-1.40); GLUCOSE 81 mg/dl (70-99); POTASSIUM 4.2 mmol/L (3.5-5.1); SODIUM 141 mmol/L (136-145); TOTAL PROTEIN 6.6 gm/dl (6.4-8.2); TRANSFERRIN 237 mg/dl (200-360)
== END | disposition home or self-care (01) ==
LOC: C.LABBFT 10:11
PROVIDERS: ATTEND Physician Assistant
DX: R53.83 Other fatigue (principal); R39.11 Hesitancy of micturition

== ENCOUNTER → 2018-03-21 | Outpatient (CLI) | payer OTHER ==
--- NOTE | 2018-03-21 09:45 | DIAGNOSTIC IMAGING REPORT ---
SCROTAL ULTRASOUND CLINICAL HISTORY: History of undescended testicle. COMPARISON STUDY: None. TECHNIQUE: Grayscale and color and duplex Doppler sonography of the scrotum was performed. FINDINGS: Both testes are located within the scrotum. The right testis measures 5.2 x 2.1 x 3.2 cm. The right testis is slightly heterogeneous with a hypoechoic focus within the midpole without definite border. There is no associated hypervascularity. A 6 mm right epididymal cyst is noted. The left testis is atrophic and heterogeneous, measuring 3.2 x 1.4 x 2.3 cm. A discrete mass is not identified within the left testis. The left epididymis is not well visualized. IMPRESSION: No definite testicular mass. Atrophic, heterogeneous left testis and slight heterogeneity of the right testis. An underlying mass is considered unlikely however a scrotal ultrasound 6 months to ensure stability is recommended. Electronically signed by: Hang Blood M.D. 03/21/2018 9:44 AM Dictated Date/Time: 03/21/2018 9:27 AM
== END | disposition home or self-care (01) ==
LOC: C.ULTR 08:57
PROVIDERS: ATTEND Physician Assistant
DX: Z87.438 Personal history of other diseases of male genital organs (principal); N50.0 Atrophy of testis

== ENCOUNTER 2018-10-10 08:00 | Inpatient (IN) ==
--- NOTE | 2018-09-19 12:51 | Anesthesiology Consultation ---
Date of Service September 19, 2018 Assessment & Plan (1) Encounter for pre-operative examination: Plan: - Check coags AM DOS - Cardio= 08/21/18= chest pain "atypical" (subsequent DSE with no ischemic changes 09/05/18). Do not feel his "atypical" chest pain 2/2 pectus excavatum ( per cardio note, not candidate for surgical correction per prior [facility] evaluation). - PCP= 08/14/18= "stable from pulmonary perspective at this time." Continued on current regimen. Chart Review Chart Review: Acceptable Risk for Surgery and Patient NOT seen in Pre Admission Testing History Surgery Operation Date: 10/10/18 08:40 Proposed Procedures p Right Anterior Total Hip Arthroplasty - Marco Perry, Height/Weight Height: 6 ft 2 in Weight: 70.76 kg Allergies Allergy/AdvReac Type Severity Reaction Status Date / Time gluten Allergy Unknown STOMACH Verified 09/18/18 10:29 ISSUES Cipro AdvReac Intermediate issue with Verified 08/19/17 14:34 legs ciprofloxacin AdvReac Intermediate issue with Verified 09/18/18 10:29 legs oxycodone AdvReac Mild GI upset Verified 09/18/18 09:30 Medications Home Medications Medication Instructions Recorded Confirmed Last Taken ascorbic acid (vitamin C) [Vitamin 2,000 mg PO QAM 09/05/18 09/18/18 Unknown C] azelastine 1 spray INTRANASAL QAM 09/05/18 09/18/18 Unknown calcium carbonate-vitamin D3 1 tab PO BID 09/05/18 09/18/18 Unknown [Calcium 600 + D(3)] cholecalciferol (vitamin D3) 1,000 unit PO QAM 09/05/18 09/18/18 Unknown [Vitamin D3] diltiazem HCl 60 mg PO HS 09/05/18 09/18/18 Unknown levalbuterol tartrate 2 inh INHALATION BID PRN 09/05/18 09/18/18 Unknown levothyroxine 25 mcg PO QAM 09/05/18 09/18/18 Unknown meclizine 25 mg PO TID PRN 09/05/18 09/18/18 Unknown mometasone-formoterol [Dulera] 2 puff INHALATION BID 09/05/18 09/18/18 Unknown montelukast [Singulair] 10 mg PO QAM 09/05/18 09/18/18 Unknown multivitamin 1 tab PO QAM 09/05/18 09/18/18 Unknown omega 8-ego-xpd-fish oil [Fish Oil] 1,200 mg PO QAM 09/05/18 09/18/18 Unknown tiotropium bromide [Spiriva with 1 cap INHALATION QAM 09/05/18 09/18/18 Unknown HandiHaler] warfarin 10 mg PO HS 09/05/18 09/18/18 Unknown fexofenadine [Dilma Allergy] 180 mg PO QAM 09/18/18 09/18/18 Unknown omeprazole 60 mg PO QAM 09/18/18 09/18/18 Unknown Past Medical History Medical History Avascular necrosis of hip REASON FOR PROCEDURE Osteoporosis GERD (gastroesophageal reflux disease) Asthma Bronchiectasis FOLLOWS WITH PULMONARY Dextroscoliosis Hearing deficit HEARING AIDS Hx of deep venous thrombosis 2015 Hx pulmonary embolism 2015 Hypothyroidism Pectus excavatum Past Family History Family History Other Diabetes Heart disease Past Surgical History Surgical History History of ear surgery X4 Hx of hemorrhoidectomy Social History Smoking Status: Never smoker Hx Alcohol Use: No Hx Substance Use: No Testing Electrocardiogram Date: 09/05/18 NSR at 65bpm. Possible LAE. iRBBB. *Poor data quality* Echocardiogram Date: 01/26/18 EF 50-55%. No RWMA. Type I DD. Mild RVD. No significant valvular disease. Stress Test Date: 09/05/18 Type: DSE No ischemic changes noted on stress ECHO AT 85% MPHR. Cannot exclude basal/ distal lateral ischemic changes due to suboptimal image quality at peak stress. Negative stress EKG. EF 63%. Per cardio note= 09/06/18= "stress echo did not demonstrate any significant findings." Other Testing CTA Chest= 07/26/18= No acute aortic pathology or evidence of pulmonary thromboembolic disease. Mild dependent subsegmental bibasilar atelectasis without evidence of pneumonia. Pectus excavatum deformity with thoracic dextroscoliosis. Mild bilateral bronchiectasis. Laboratory Results 09/05/18 WBC 4.63 H/H 14.1/43.2 PLATELETS 145 SODIUM 139 POTASSIUM 3.8 CHLORIDE 105 CO2 27 BUN 11 CREATININE 0.84 GLUCOSE 98 09/14/18 PT 18.1 INR 1.9
--- NOTE | 2018-10-10 06:16 | History & Physical Report ---
Date of Service October 10, 2018 Assessment & Plan (1) Avascular necrosis of bone of right hip: We will proceed with a right anterior total hip arthroplasty. 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 He plans to use a home nursing agency upon discharge. Present on Admission?: Yes History of Present Illness Chief Complaint: Avascular necrosis of the right hip Primary Care Provider: Barrington Adorno MD Nikhil is a pleasant 43-year-old male who is been having a 6-month history of increasing bilateral hip pain. He has been downgraded to a cane because of his hip pain. MRI and clinical examination of his right hip has been suggestive of avascular necrosis. He also has some moderate osteoarthritis of the right hip. He has been on chronic steroid treatment for asthma. After failing conservative treatment and after discussions in the office, he is elected proceed with a right total hip arthroplasty. Allergies Allergy/AdvReac Type Severity Reaction Status Date / Time gluten Allergy Unknown STOMACH Verified 10/05/18 07:12 ISSUES Cipro AdvReac Intermediate issue with Verified 08/19/17 14:34 legs ciprofloxacin AdvReac Intermediate issue with Verified 10/05/18 07:12 legs oxycodone AdvReac Mild GI upset Verified 10/05/18 07:12 Home Medications Home Medications Medication Instructions Recorded Confirmed Type Dulera 2 puff INHALATION BID 09/05/18 09/18/18 History ascorbic acid (vitamin C) [Vitamin 2,000 mg PO QAM 09/05/18 09/18/18 History C] azelastine 1 spray INTRANASAL QAM 09/05/18 09/18/18 History calcium carbonate-vitamin D3 1 tab PO BID 09/05/18 09/18/18 History [Calcium 600 + D(3)] cholecalciferol (vitamin D3) 1,000 unit PO QAM 09/05/18 09/18/18 History [Vitamin D3] diltiazem HCl 60 mg PO HS 09/05/18 09/18/18 History levalbuterol tartrate 2 inh INHALATION BID PRN 09/05/18 09/18/18 History levothyroxine 25 mcg PO QAM 09/05/18 09/18/18 History meclizine 25 mg PO TID PRN 09/05/18 09/18/18 History montelukast [Singulair] 10 mg PO QAM 09/05/18 09/18/18 History multivitamin 1 tab PO QAM 09/05/18 09/18/18 History omega 3-vwh-rcu-fish oil [Fish Oil] 1,200 mg PO QAM 09/05/18 09/18/18 History tiotropium bromide [Spiriva with 1 cap INHALATION QAM 09/05/18 09/18/18 History HandiHaler] warfarin 10 mg PO HS 09/05/18 10/05/18 History fexofenadine [Dilma Allergy] 180 mg PO QAM 09/18/18 09/18/18 History omeprazole 60 mg PO QAM 09/18/18 09/18/18 History enoxaparin [Lovenox] 80 mg SUBCUT Q12H 10/05/18 10/05/18 History Past Med/Surg History Family History Other Diabetes Heart disease Social History Preferred Language: Bermudian Communication Ability: Effective Beliefs That Will Affect Care: None marital status: Current Living Situation: Family Other Information That Helps Us Care for You: No Feels Safe at Home: Yes Smoking Status: Never smoker Hx Alcohol Use: No Hx Substance Use: No Review of Systems All systems reviewed & are unremarkable except as noted in HPI & below Physical Exam Constitutional: WD/WN, vitals as above Eyes: PERRL, conjunctivae normal, anicteric sclerae ENMT: external ear and nose normal, oropharynx normal Neck: trachea midline, no thyromegaly Respiratory: normal respiratory effort Cardiovascular: RRR, no murmur, no edema Gastrointestinal (Abdomen): normal bowel sounds, soft, nontender, no hepatosplenomegaly Musculoskeletal: Physical examination of the right hip reveals decreased range of motion with flexion, internal and external rotation. There is significant groin pain with forced internal rotation of the hip his leg lengths are essentially equal. Psychiatric: A+Ox3, euthymic affect Results & Data Diagnostic Findings Radiographs of the right hip and pelvis demonstrate moderate osteoarthritis with joint space narrowing and osteophyte formation. MRI of the right hip does show avascular necrosis with impending collapse.
[~2018-10-10 08:00] MED LIST changes: +ACETAMINOPHEN 500 MG TAB PO SCH; -ASCO500T3 PO; -BUDE180I INH; -BUDE1SUS8 NAE; +BUPIVACAINE 0.5 % 5 MG/1 ML PF 10ML VIAL ONE; -CALC500C70 PO; +CEFAZOLIN 2000MG 2,000 MG/15 ML SYR IV SCH; -CHOL2000 PO; -CLR10 PO; -DICL1GEL34 TOP; -DILT40TA PO; -DNSIS60 INJ; +FAMOTIDINE 20 MG TAB PO SCH; +GABAPENTIN 300 MG x 3 PO SCH; -IPRA-64 INH; -LEVA1.255 NEB; -LEVA45AE PO; -LEVO25TA PO; +LR 500ML BOLUS, THEN 15ML/HR IV SCH; +LR 60ML/HR IV SCH; -MOME200A INH; -MULT-513 PO; -OMEG10007 PO; -PRED10TA PO; -PRLSR20 PO; +ROPIVACAINE 0.5% HCL/PF 150 MG, BUPIVACAINE 0.5% MPF 30 ML, EPINEPHrine 30MG/30ML (OR U... INFIL SCH; -SNG10 PO; -SPRIN/30 INH; +TRANEXAMIC ACID 1,000 MG **IV Intra-op IV SCH; +TRANEXAMIC ACID 1,000 MG **IV Pre-op IV SCH; -WARF5TAB7 PO
--- NOTE | 2018-10-10 08:51 | History & Physical Bridge Note ---
Date of Service October 10, 2018 History & Physical Bridge Note I have examined the patient, reviewed the History & Physical and in the interval since the performance of the History & Physical I have noted the following changes of clinical significance: no changes noted
[2018-10-10 09:34] LABS: INR 1.1 (0.9-1.1); Partial Thromboplastin Time 26.8 Seconds (21.0-31.0); Prothrombin Time 10.9 Seconds (9.0-12.0)
[2018-10-10] MEDS ORDERED: fentaNYL citrate 100 MCG/2 ML VIAL ONE (10:19)
[2018-10-10] MEDS ORDERED: MIDAZOLAM HCL 1 MG/ML 2ML VIAL ONE ×3 (10:19→12:49)
[2018-10-10] MEDS ORDERED: PROPOFOL IV EMULSION 10 MG/ML 20 ML VIAL IV ONE ×2 (10:20→15:17)
[2018-10-10] MEDS ORDERED: ONDANSETRON INJ 2 MG/ML 2 ML VIAL IV PRN ×2 (11:15→17:31)
[2018-10-10] MEDS ORDERED: ePHEDrine sulfate 50 MG/ML AMP IV PRN (11:15)
[2018-10-10] MEDS ORDERED: ATROPINE SULFATE 0.1 MG/ML 10ML SYR IV PRN (11:15)
[2018-10-10] MEDS ORDERED: HYDROmorphone INJ 1 MG/ML SYRINGE IV PRN (11:15)
[2018-10-10] MEDS ORDERED: POVIDONE-IODINE OP SOLN 30 ML BTL ONE (12:22)
[2018-10-10] MEDS ORDERED: ORTHO JOINT ANESTHETIC ONE (12:22)
[2018-10-10] MEDS ORDERED: SODIUM CHLORIDE 0.9% 250 ML IV PRN (14:05)
[2018-10-10] MEDS ORDERED: PHENYLEPHRINE 100MCG/ML 5ML SYR ONE (15:05)
[2018-10-10] MEDS ORDERED: ePHEDrine sulfate 50 MG/ML SYR ONE (15:05)
[2018-10-10] MEDS ORDERED: PHENYLEPHRINE HCL 10 MG/ML VIAL ONE (15:05)
--- NOTE | 2018-10-10 15:10 | Operative Report ---
Post Operative Report Pre & Post Diagnosis Operation Date: 10/10/18 10:40 Pre-Op Diagnosis: Avascular Necrosis Right Hip Post-Op Diagnosis: Avascular Necrosis Right Hip Procedure Operation Date: 10/10/18 10:40 Actual Procedures p Right Anterior Total Hip Arthroplasty(Right) - Marco Perry DO Surgeon Marco Perry DO Systems Analyst Developer Marco Lyn PAC Estimated Blood Loss 700 Findings Consistent with Post-Op Diagnosis Specimens Right femoral head Complications none Disposition Disposition: Recovery Room Indications Thai is a pleasant 43-year-old male who is been dealing with avascular necrosis of bilateral hips. He has been on a cane because of his right hip. He has had a history of multiple DVTs and is on Coumadin and Lovenox. MRI showed impending collapse of the right hip and some moderate osteoarthritis. He could not live with his hip pain the way it was elected to proceed with a right total hip arthroplasty. Description of Procedure Implants used Biomet Taperloc total hip arthroplasty system with a size 20 high offset Taperloc stem, a 58 mm osseoti cup with a 4 screws, an E1 polyethylene liner, a 40 mm ceramic head with a 0 neck. Patient arrived at the hospital for the above procedure. They were seen in the preoperative holding area and the operative extremity was identified and signed. They were given a spinal anesthetic. They were given a preoperative antibiotic and TXA. They were taken back To the operating room and laid on the table in the supine position. The leg was brought out through a Puristst leg positioner. The hip was then prepped and draped in sterile fashion. A timeout was done and the patient in upper extremities properly identified. An anterior approach was used. Dissection was taken down through the fascia and the tensor muscle belly was retracted laterally and the rectus was retracted medially. The circumflex vessels were identified and ligated. The capsule was then incised and tagged for later repair. The femoral neck was then cut and the femoral head was removed. The acetabulum was exposed. Time was spent doing a complete circumferential labral release. Sequential reaming of the acetabulum up to a size 57 reamer was done. Final reamings were done under fluoroscopy to ensure appropriate version. A Biomet 58 mm G7 cup was then impacted into place. Unfortunately I was unable to get a good bite. I re-reamed and still was unable to get good fixation of the G7 cup. At this point I decided to do an osseoiti cup. The osteotomy cup was then impacted into place. It still was a little bit loose so 4 screws were placed. I was happy with the stability. The E1 polyethylene liner was then snapped into place. Surrounding soft tissues were then injected with 100 cc of an orthopedic pain control cocktail. The proximal femur was then exposed. Sequential broaching up to a size 20 broach was done. Off that broach a size 40 head with a 0 neck was trialed. The hip was reduced and fluoroscopic images showed anatomic alignment of the implants in acceptable length. The broach was removed. The final size 20 Taperloc stem was then impacted into place. A ceramic 40 mm head with a 0 neck was then impacted into place in the hip was reduced. Final fluoroscopic images showed anatomic reduction of the hip. The capsule was then closed with #1 Vicryl suture. A dilute betadyne lavage was then done for 3 minutes. The joint was then irrigated with normal saline solution. The fascia was closed with #1 PDS suture. Skin was closed with 2-0 Vicryl, anaid, and a Dulce VAC dressing. The patient was then transferred to a hospital bed and taken to the post anesthesia care unit in stable condition. They tolerated the procedure well. I attest to the content of the Intraoperative Record and any orders documented therein. Any exceptions are noted below.
--- NOTE | 2018-10-10 15:16 | Fluoroscopy Report ---
FL hip RT 1V CLINICAL HISTORY: 43 years-old Male presenting with RIGHT HIP. TECHNIQUE: 4 fluoroscopic image(s) recorded as part of an intraoperative procedure. COMPARISON: CT from 04/13/2018. FINDINGS/IMPRESSION: There has been interval total right hip arthroplasty. No malalignment. No gross periprosthetic fractu re. Please see surgical report for further details. Fluoroscopy dosage (mGy): 5.12. Fluoroscopy time: 56.3 seconds. Number or time of fluoroscopic spot images: 0. Electronically signed by: Gaudencio Roberts M.D. 10/10/2018 3:15 PM
--- NOTE | 2018-10-10 15:48 | XRay Report ---
XR hip 1V RT w pelvis CLINICAL HISTORY: 43 years-old Male presenting with IN PACU - A/P PELVIS and LATERAL HIP . TECHNIQUE: Single frontal view of the pelvis and crosstable lateral view of the right hip were obtain ed. COMPARISON: Fluoroscopic images obtained earlier today. FINDINGS: Total right hip arthroplasty. Expected intra-articular and soft tissue emphysema. Overlying surgical incision site with skin anaid noted. Underlying osteopenia suspected. Remainder of the bony pelvis intact. No malalignment of the prosthesis or periprosthetic fracture. IMPRESSION: Expected postsurgical appearance status post total right hip arthroplasty. Electronically signed by: Gaudencio Roberts M.D. 10/10/2018 3:47 PM
[2018-10-10] MEDS: PHENYLEPHRINE 100MCG/ML 5ML SYR IV PRN ×5 (15:55→16:13)
[2018-10-10] MEDS ORDERED: ONDANSETRON INJ 2 MG/ML 2 ML VIAL ONE (16:25)
[2018-10-10 16:48] LABS: Hematocrit (blood only) 30.6 % (42-52); Hemoglobin 9.8 g/dL (14.0-18.0)
--- NOTE | 2018-10-10 17:29 | Anesthesiology Progress Note ---
Date of Service October 10, 2018 Anesthesia Post Procedure Vital Signs Vital Signs: Temp Pulse Pulse Resp BP Pulse Ox 10/10/18 17:05 36.7 C 75 16 90/51 L 98 10/10/18 16:55 80 20 92/55 L 98 10/10/18 16:45 85 20 95/59 L 97 10/10/18 16:35 81 17 93/57 L 98 10/10/18 16:25 88 19 92/60 L 95 10/10/18 16:15 102 H 19 85/56 L 94 10/10/18 16:05 86 15 86/55 L 95 10/10/18 15:55 103 H 17 91/54 L 97 10/10/18 15:45 112 H 16 85/56 L 100 10/10/18 15:35 108 H 16 90/57 L 98 10/10/18 15:27 37.1 C 103 H 16 80/61 L 99 10/10/18 08:59 36.5 C 81 18 115/69 94 Notes Mental Status: alert / awake / arousable Patient Amnestic to Procedure: Yes Nausea / Vomiting: adequately controlled Pain: adequately controlled Airway Patency, RR, SpO2: stable & adequate BP & HR: stable & adequate and see Notes below Hydration State: stable & adequate Neuraxial Anesthesia: was administered and sensory block is resolving Anesthetic Complications: no major complications apparent and Pt Satisfied with anesthetic care Notes: The patient was noted to be hypotensive and tachycardic intraoperatively with over 700 ml of blood loss. He was given one unit of PRBC in the OR. In PACU, he was given 2000 ml of LR in PACU which caused HR to come down to the 70s from 110s and SBP to the 90s up from the 80s. His postop hgb was 9.[address] Perry is aware. The patient is otherwise awake and comfortable.
[2018-10-10] MEDS ORDERED: MAGNESIUM HYDROXIDE SUSP 30 ML UDC PO PRN (17:31)
[2018-10-10] MEDS ORDERED: MECLIZINE HCL 25 MG TAB PO PRN (17:31)
[2018-10-10] MEDS ORDERED: BISACODYL 10 MG SUPP PR PRN (17:31)
[2018-10-10] MEDS ORDERED: METOCLOPRAMIDE HCL INJ 5 MG/ML 2 ML VIAL IV PRN (17:31)
[2018-10-10] MEDS ORDERED: NALOXONE HCL 0.4 MG/1 ML VIAL/CARP IV PRN (17:31)
[2018-10-10] MEDS ORDERED: HYDROmorphone INJ 0.5 MG/0.5 ML SYR IV PRN (17:31)
[2018-10-10] MEDS: KETOROLAC TROMETHAMINE 15 MG/ML VIAL IV SCH (19:07)
[2018-10-10] MEDS ORDERED: SODIUM CHLORIDE 0.9% 1000ML 500 ML IV ONE (19:30)
[2018-10-10 19:56] LABS: Hematocrit (blood only) 32.5 % (42-52); Hemoglobin 10.4 g/dL (14.0-18.0)
[2018-10-10] MEDS: WARFARIN SOD 10 MG TAB PO SCH (20:33)
[2018-10-10] MEDS: dilTIAZem HCl 60 MG TAB PO SCH (20:33)
[2018-10-10] MEDS: CALCIUM 600MG + VIT D 400 IU TAB PO SCH (20:34)
[2018-10-10] MEDS: DOCUSATE SODIUM 100 MG CAP PO SCH (20:34)
[2018-10-10] MEDS: SENNA 8.6 MG TAB PO SCH (20:34)
[2018-10-10] MEDS: BUDESONIDE/FORMOTEROL FUMARATE 160/4.5 60 PUFFS/INHALER INH SCH (20:35)
[2018-10-10] MEDS: CEFAZOLIN 1000MG 1,000 MG/7.5 ML SYR IV SCH (21:20)
[2018-10-11] MEDS: AZELASTINE - ORDER AWAITING ACTION SCH ×3 (00:15→15:25)
[2018-10-11] MEDS: KETOROLAC TROMETHAMINE 15 MG/ML VIAL IV SCH ×4 (00:15→19:27)
[2018-10-11] MEDS: SODIUM CHLORIDE 0.9% 1000ML 1,000 ML IV SCH ×2 (00:15→06:33)
[2018-10-11] MEDS: HYDROCODONE/ACETAMOPHEN 5/325MG TAB PO PRN ×4 (01:39→18:25)
[2018-10-11 05:55] LABS: Hematocrit (blood only) 28.1 % (42-52); Mean Corpuscular Volume 94.3 fL (80-100); RDW Coefficient of Variation 15.5 % (11.5-14.5); RDW Standard Deviation 53.4 fL (36.4-46.3); Red Blood Count 2.98 M/uL (4.7-6.1); White Blood Count 7.63 K/uL (4.8-10.8)
[2018-10-11 06:08] LABS: INR 1.2 (0.9-1.1); Prothrombin Time 11.9 Seconds (9.0-12.0)
[2018-10-11] MEDS: LEVOTHYROXINE SODIUM 25 MCG TABLET PO SCH (06:18)
[2018-10-11] MEDS: CEFAZOLIN 1000MG 1,000 MG/7.5 ML SYR IV SCH (06:18)
[2018-10-11] MEDS: ENOXAPARIN 80 MG/0.8 ML SYR SQ SCH ×2 (06:19→19:28)
[2018-10-11 06:21] LABS: Immature Granulocytes # (auto) 0.02 K/uL (0.00-0.02); Immature Granulocytes % (auto) 0.3 %; Lymphocytes # (auto) 0.55 K/uL (1.2-3.4); Lymphocytes % (auto) 7.2 %; Mean Platelet Volume 10.1 fL (7.4-10.4); Monocytes % (auto) 5.2 %; Neutrophils # (auto) 6.66 K/uL (1.4-6.5); Neutrophils % (auto) 87.3 %; Ovalocytes 1+; Platelet Count 94 K/uL (130-400); Platelet Estimate Decreased (Normal)
[2018-10-11 06:27] LABS: BUN Creatinine Ratio 20.1 (10-20); Calcium 7.4 mg/dl (8.5-10.1); Creatinine Clr Calc Pharmacy 148.4 ml/min; Est GFR (African American) 141.7; Est GFR (Non-African American) 122.3; Potassium 4.1 mmol/L (3.5-5.1)
[2018-10-11] MEDS ORDERED: SODIUM CHLORIDE 0.9% 250 ML IV PRN ×2 (07:03→07:11)
--- NOTE | 2018-10-11 07:10 | Orthopedic Progress Note ---
Date of Service October 11, 2018 Assessment & Plan (1) Avascular necrosis of bone of right hip: Overall he is doing fairly well. He had very weak bone quality during the procedure and I want to keep him 50% partial weightbearing for the first 6 weeks. He can use a cane or a walker to help with this. He is on Coumadin for DVT prophylaxis and he is being bridged with Lovenox. I am going to give him another unit of packed red blood cells today. He did have some blood loss during the procedure and since his hemoglobin and hematocrit have both dropped since last night I think 1 more unit would be in his best interest. We will follow his blood count once again tomorrow morning. I plan for discharge to home tomorrow. Present on Admission?: Yes Subjective Thai was seen and examined at bedside this morning. Overall is doing fairly well. He had been up and ambulating to the bathroom several times last night. His pain is controlled. He has no complaints. Physical Exam Vital Signs (Past 24 Hours): Last Vital Signs Temp 36.8 C 10/11/18 03:25 Pulse 103 H 10/11/18 03:25 Resp 14 10/11/18 03:25 BP 96/56 L 10/11/18 03:25 Pulse Ox 94 10/11/18 03:25 Musculoskeletal: On physical examination of the right hip, the Dulce VAC dressing is to suction. His leg lengths are equal. He is active dorsiflexion and plantarflexion of his right ankle. Sensation is intact throughout. Results & Data Laboratory Results H & H 10/10/18 10/10/18 10/11/18 Range/Units 16:38 19:45 05:15 Hgb 9.8 L 10.4 L 9.0 L (14.0-18.0) g/dL Hct 30.6 L 32.5 L 28.1 L (42-52) % Coagulation 10/10/18 10/11/18 Range/Units 09:05 05:15 INR 1.1 1.2 H (0.9-1.1) Diagnostic Findings X-rays postoperatively of the right hip show the prosthesis to be in anatomic alignment without any evidence of fracture, dislocation, or loosening.
[2018-10-11] MEDS ORDERED: ENOXAPARIN 80 MG/0.8 ML SYR SQ SCH (07:15)
--- NOTE | 2018-10-11 08:30 | Anesthesiology Progress Note ---
Date of Service October 11, 2018 Anesthesia Post Procedure Vital Signs Vital Signs: Temp Pulse Pulse Pulse Pulse Pulse Resp 10/11/18 08:08 36.8 C 80 16 10/11/18 07:55 37.0 C 87 18 10/11/18 07:36 36.8 C 78 20 10/11/18 03:25 36.8 C 103 H 14 10/10/18 23:35 36.6 C 94 H 16 10/10/18 21:24 74 10/10/18 20:32 92 H 10/10/18 19:54 36.6 C 93 H 16 10/10/18 19:38 91 H 10/10/18 19:08 10/10/18 18:42 92 H 16 10/10/18 18:10 36.5 C 90 16 10/10/18 18:00 88 18 10/10/18 17:25 36.8 C 102 H 20 10/10/18 17:05 36.7 C 75 16 10/10/18 16:55 80 20 10/10/18 16:45 85 20 10/10/18 16:35 81 17 10/10/18 16:25 88 19 10/10/18 16:15 102 H 19 10/10/18 16:05 86 15 10/10/18 15:55 103 H 17 10/10/18 15:45 112 H 16 10/10/18 15:35 108 H 16 10/10/18 15:27 37.1 C 103 H 16 10/10/18 08:59 36.5 C 81 18 BP BP BP Pulse Ox 10/11/18 08:08 99/54 L 98 10/11/18 07:55 101/58 L 98 10/11/18 07:36 100/54 L 99 10/11/18 03:25 96/56 L 94 10/10/18 23:35 93/50 L 99 10/10/18 21:24 96/56 L 99 10/10/18 20:32 90/45 L 96 10/10/18 19:54 90/45 L 100 10/10/18 19:38 81/43 L 98 10/10/18 19:08 88/52 L 10/10/18 18:42 87/55 L 95 10/10/18 18:10 91/49 L 99 10/10/18 18:00 92/56 L 95 10/10/18 17:25 93/54 L 93 10/10/18 17:05 90/51 L 98 10/10/18 16:55 92/55 L 98 10/10/18 16:45 95/59 L 97 10/10/18 16:35 93/57 L 98 10/10/18 16:25 92/60 L 95 10/10/18 16:15 85/56 L 94 10/10/18 16:05 86/55 L 95 10/10/18 15:55 91/54 L 97 10/10/18 15:45 85/56 L 100 10/10/18 15:35 90/57 L 98 10/10/18 15:27 80/61 L 99 10/10/18 08:59 115/69 94 Pain Intensity Right Hip: Pain Intensity: 7 Right Knee: Pain Intensity: 7 Notes Mental Status: alert / awake / arousable and participated in evaluation Patient Amnestic to Procedure: Yes Nausea / Vomiting: adequately controlled Pain: adequately controlled Airway Patency, RR, SpO2: stable & adequate BP & HR: stable & adequate Hydration State: stable & adequate Neuraxial Anesthesia: was administered and sensory block resolved Anesthetic Complications: no major complications apparent and Pt Satisfied with anesthetic care
[2018-10-11] MEDS: ASCORBIC ACID 500 MG TAB PO SCH (08:44)
[2018-10-11] MEDS: CALCIUM 600MG + VIT D 400 IU TAB PO SCH ×2 (08:45→20:50)
[2018-10-11] MEDS: OMEGA-3 (PURIFIED FISH OIL) 1 GM CAP PO SCH (08:45)
[2018-10-11] MEDS: PANTOprazole 40 MG TAB PO SCH (08:45)
[2018-10-11] MEDS: FEXOFENADINE HCL 180 MG TAB PO SCH (08:45)
[2018-10-11] MEDS: MULTIVITAMIN TAB PO SCH (08:45)
[2018-10-11] MEDS: MONTELUKAST SODIUM 10 MG TABLET PO SCH (08:46)
[2018-10-11] MEDS: CHOLECALCIFEROL 1,000 UNITS TAB PO SCH (08:46)
[2018-10-11] MEDS: DOCUSATE SODIUM 100 MG CAP PO SCH ×2 (08:46→20:50)
[2018-10-11] MEDS: BUDESONIDE/FORMOTEROL FUMARATE 160/4.5 60 PUFFS/INHALER INH SCH ×2 (08:46→20:51)
[2018-10-11] MEDS: TIOTROPIUM BROMIDE 5 PUFF/90 MCG INH INH SCH (08:48)
[2018-10-11] MEDS: LORazepam 0.5 MG TAB PO SCH (08:49)
[2018-10-11] MEDS ORDERED: MULTIVITAMIN TAB PO SCH (09:00)
[2018-10-11] MEDS: LEVALBUTEROL TARTRATE 15 GM HFA.AER.AD INH PRN (13:58)
[2018-10-11] MEDS: WARFARIN SOD 10 MG TAB PO SCH (15:31)
[2018-10-11] MEDS: dilTIAZem HCl 60 MG TAB PO SCH (20:51)
[2018-10-11] MEDS: SENNA 8.6 MG TAB PO SCH (20:51)
[2018-10-12] MEDS: AZELASTINE - ORDER AWAITING ACTION SCH ×2 (00:28→07:43)
[2018-10-12] MEDS: KETOROLAC TROMETHAMINE 15 MG/ML VIAL IV SCH ×3 (00:28→12:32)
[2018-10-12] MEDS: ENOXAPARIN 80 MG/0.8 ML SYR SQ SCH (06:03)
[2018-10-12] MEDS: LEVOTHYROXINE SODIUM 25 MCG TABLET PO SCH (06:07)
[2018-10-12 06:34] LABS: Hematocrit (blood only) 28.9 % (42-52); Hemoglobin 9.3 g/dL (14.0-18.0); Mean Corpuscular Hgb Conc 32.2 g/dL (32-36); Mean Corpuscular Volume 94.1 fL (80-100); RDW Standard Deviation 54.4 fL (36.4-46.3); Red Blood Count 3.07 M/uL (4.7-6.1); White Blood Count 5.09 K/uL (4.8-10.8)
[2018-10-12 06:38] LABS: Platelet Count 85 K/uL (130-400)
[2018-10-12 06:44] LABS: Basophils # (auto) 0.01 K/uL (0-0.2); Basophils % (auto) 0.2 %; Eosinophils # (auto) 0.05 K/uL (0-0.5); Immature Granulocytes # (auto) 0.01 K/uL (0.00-0.02); Immature Granulocytes % (auto) 0.2 %; Lymphocytes % (auto) 17.7 %; Monocytes # (auto) 0.35 K/uL (0.11-0.59); Monocytes % (auto) 6.9 %; Neutrophils # (auto) 3.77 K/uL (1.4-6.5)
[2018-10-12 06:55] LABS: INR 1.2 (0.9-1.1); Prothrombin Time 12.5 Seconds (9.0-12.0)
--- NOTE | 2018-10-12 07:32 | Orthopedic Progress Note ---
Date of Service October 12, 2018 Assessment & Plan (1) Avascular necrosis of bone of right hip: Overall is doing fairly well. He is not having too much pain in the hip. He is on Lovenox and Coumadin for DVT prophylaxis. He will be discharged home early this afternoon. 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 He will follow-up with orthopedics in 2 weeks. Present on Admission?: Yes Subjective Thai was seen and examined at bedside this morning. Overall is doing fairly well. He was able to ambulate well yesterday with physical therapy and was compliant with a 50% partial weightbearing restriction. His pain is controlled he has no complaints. Physical Exam Vital Signs (Past 24 Hours): Last Vital Signs Temp 37.3 C 10/12/18 06:44 Pulse 98 H 10/12/18 06:44 Resp 14 10/12/18 06:44 BP 100/59 L 10/12/18 06:44 Pulse Ox 95 10/12/18 06:44 Musculoskeletal: On examination of the right hip, the Dulce VAC dressing is to suction. His leg lengths are equal. He has active dorsiflexion and plantarflexion of his right ankle.
--- NOTE | 2018-10-12 07:35 | Discharge Summary ---
Date of Service October 12, 2018 Admission HPI Per Admitting Provider Nikhil is a pleasant 43-year-old male who is been having a 6-month history of increasing bilateral hip pain. He has been downgraded to a cane because of his hip pain. MRI and clinical examination of his right hip has been suggestive of avascular necrosis. He also has some moderate osteoarthritis of the right hip. He has been on chronic steroid treatment for asthma. After failing conservative treatment and after discussions in the office, he is elected proceed with a right total hip arthroplasty. Specialty Data Orthopedic H & H 10/10/18 10/10/18 10/11/18 Range/Units 16:38 19:45 05:15 Hgb 9.8 L 10.4 L 9.0 L (14.0-18.0) g/dL Hct 30.6 L 32.5 L 28.1 L (42-52) % 10/12/18 Range/Units 06:11 Hgb 9.3 L (14.0-18.0) g/dL Hct 28.9 L (42-52) % Coagulation 10/10/18 10/11/18 10/12/18 Range/Units 09:05 05:15 06:11 INR 1.1 1.2 H 1.2 H (0.9-1.1) Discharge Data Consultations 10/11/18 08:00 Consult Case Management - Discharge Planning Routine Procedures Performed Operation Date: 10/10/18 10:40 Actual Procedures p Right Anterior Total Hip Arthroplasty(Right) - Marco Perry DO [facility] Course (1) Avascular necrosis of bone of right hip: On October 10, 2018 Thai arrived at [facility] and underwent a right anterior total hip arthroplasty without complication. He did require a unit of blood during the operation. He had a spinal anesthetic. Postoperatively he was started on Coumadin for DVT prophylaxis and bridged with Lovenox. He was made 50% partial weightbearing on the right hip because of poor bone quality. His hospital course was relatively uneventful. He was a little hypotensive the evening of the surgery and a stat H&H was drawn. That was relatively normal. The following morning his H&H dropped a little bit. I decided to give him 1 unit of blood. He was able to participate well with physical therapy that day and his pain was well controlled. On postop day #2 his H&H had normalized. He was able to participate well with physical therapy and was compliant with a 50% partial weightbearing restriction. He was therefore discharged to home. He will follow-up with orthopedics in 2-3 weeks. Discharge Instructions Home Medications Medication Instructions Recorded Confirmed Spiriva with HandiHaler 1 cap INHALATION QAM 09/05/18 10/10/18 ascorbic acid (vitamin C) [Vitamin 2,000 mg PO QAM 09/05/18 10/10/18 C] azelastine 1 spray INTRANASAL QAM 09/05/18 10/10/18 calcium carbonate-vitamin D3 1 tab PO BID 09/05/18 10/10/18 [Calcium 600 + D(3)] cholecalciferol (vitamin D3) 1,000 unit PO QAM 09/05/18 10/10/18 [Vitamin D3] diltiazem HCl 60 mg PO HS 09/05/18 10/10/18 levalbuterol tartrate 2 inh INHALATION BID PRN 09/05/18 10/10/18 levothyroxine 25 mcg PO QAM 09/05/18 10/10/18 meclizine 25 mg PO TID PRN 09/05/18 10/10/18 montelukast [Singulair] 10 mg PO QAM 09/05/18 10/10/18 multivitamin 1 tab PO QAM 09/05/18 10/10/18 omega 3-lnv-anu-fish oil [Fish Oil] 1,200 mg PO QAM 09/05/18 10/10/18 warfarin 10 mg PO HS 09/05/18 10/10/18 fexofenadine [Dilma Allergy] 180 mg PO QAM 09/18/18 10/10/18 omeprazole 60 mg PO QAM 09/18/18 10/10/18 enoxaparin [Lovenox] 80 mg SUBCUT Q12H 10/05/18 10/10/18 budesonide-formoterol [Symbicort] 1 puff INHALATION BID 10/10/18 10/10/18 denosumab [Prolia] See Rx Instructions .ROUTE .COMPLEX 10/10/18 10/10/18 lorazepam [Ativan] 0.5 mg PO DAILY 10/10/18 10/10/18 Previous Rx's Medication Instructions Recorded hydrocodone-acetaminophen [[employer]] 1 - 2 tab PO Q4H PRN #40 tab 10/11/18
[2018-10-12] MEDS: LORazepam 0.5 MG TAB PO SCH (07:39)
[2018-10-12] MEDS: HYDROCODONE/ACETAMOPHEN 5/325MG TAB PO PRN ×2 (07:39→12:52)
[2018-10-12] MEDS: ASCORBIC ACID 500 MG TAB PO SCH (07:40)
[2018-10-12] MEDS: MONTELUKAST SODIUM 10 MG TABLET PO SCH (07:41)
[2018-10-12] MEDS: DOCUSATE SODIUM 100 MG CAP PO SCH (07:41)
[2018-10-12] MEDS: CALCIUM 600MG + VIT D 400 IU TAB PO SCH (07:41)
[2018-10-12] MEDS: CHOLECALCIFEROL 1,000 UNITS TAB PO SCH (07:41)
[2018-10-12] MEDS: BUDESONIDE/FORMOTEROL FUMARATE 160/4.5 60 PUFFS/INHALER INH SCH (07:42)
[2018-10-12] MEDS: MULTIVITAMIN TAB PO SCH (07:42)
[2018-10-12] MEDS: OMEGA-3 (PURIFIED FISH OIL) 1 GM CAP PO SCH (07:42)
[2018-10-12] MEDS: TIOTROPIUM BROMIDE 5 PUFF/90 MCG INH INH SCH (07:42)
[2018-10-12] MEDS: LEVALBUTEROL TARTRATE 15 GM HFA.AER.AD INH PRN (07:42)
[2018-10-12] MEDS: PANTOprazole 40 MG TAB PO SCH (07:42)
[2018-10-12] MEDS: FEXOFENADINE HCL 180 MG TAB PO SCH (07:42)
--- NOTE | 2018-10-16 07:23 | Coding Query ---
CODING QUERY To promote full compliance with coding requirements relating to patient care, physician participation is requested in all cases of bass string winder uncertainty. Please assist us with the question(s) below: Coding Question(s): The record reflects the following clinical documentation: The patient was noted to be hypotensive and tachycardic intraoperatively with over 700 ml of blood loss. He was given one unit of PRBC in the OR. In PACU, he was given 2000 ml of LR in PACU which caused HR to come down to the 70s from 110s and SBP to the 90s up from the 80s. His postop hgb was 9.8 Please indicate a diagnosis for these findings: ( ) Acute blood loss anemia ( ) Acute postoperative anemia due to dilutional fluids ( ) Chronic blood loss anemia ( ) Iron deficient anemia due to blood loss ( ) Iron deficiency anemia ( ) Anemia, unspecified or other ( ) Other: (please specify) ( ) Unable to determine Thank you for your time, RADHA Morse, [facility]
== END 2018-10-12 14:06 | disposition home health service (06) | DRG 470 ==
LOC: ASU 08:00 → 3E 15:15

== ENCOUNTER 2018-12-18 20:37 | Inpatient (IN) ==
[2018-12-18] MEDS ORDERED: MAGNESIUM SULFATE / D5W 1 GM/100 ML BAG IV ONE (21:10)
[2018-12-18] MEDS ORDERED: methylPREDNISolone 125 MG/2 ML VIAL IV STA (21:10)
[2018-12-18] MEDS ORDERED: ALBUT/IPRATROP 3MG/0.5MG NEB 3 ML VIAL NEB ONE (21:10)
--- NOTE | 2018-12-18 21:46 | XRay Report ---
XR chest 1V portable CLINICAL HISTORY: 43 years-old Male presenting with Chest Pain. TECHNIQUE: Portable upright AP view of the chest was obtained. COMPARISON: 11/07/2018. FINDINGS: The patient is CASTAÑEDA rotated. Cardiac silhouette enlarged. Diffuse heterogeneity of lung parenchyma wit h prominence of pulmonary vasculature unchanged. Bibasal or opacities similar to prior exam. No new f ocal opacity. Underlying osteopenia suspected. Upper abdomen normal. IMPRESSION: 1. Apparent cardiomegaly may relate to patient rotation or the known pectus excavatum deformity. 2. Pulmonary vascular prominence suggest volume overload. 3. Bibasilar atelectasis or scarring similar to prior exam. No new superimposed infiltrate to sugges t pneumonia. Electronically signed by: Gaudencio Roberts M.D. 12/18/2018 9:45 PM
[2018-12-18 21:53] LABS: Immature Granulocytes # (auto) 0.01 K/uL (0.00-0.02); Immature Granulocytes % (auto) 0.2 %; Lymphocytes # (auto) 0.64 K/uL (1.2-3.4); Lymphocytes % (auto) 14.8 %; Mean Corpuscular Hgb Conc 31.4 g/dL (32-36); Mean Corpuscular Volume 82.5 fL (80-100); Monocytes # (auto) 0.42 K/uL (0.11-0.59); Monocytes % (auto) 9.7 %; Neutrophils # (auto) 3.25 K/uL (1.4-6.5); Neutrophils % (auto) 75.3 %; Platelet Count 193 K/uL (130-400); RDW Coefficient of Variation 16.3 % (11.5-14.5); RDW Standard Deviation 49.6 fL (36.4-46.3); Red Blood Count 4.24 M/uL (4.7-6.1); White Blood Count 4.32 K/uL (4.8-10.8)
[2018-12-18 22:12] LABS: Alanine Aminotransferase 25 U/L (12-78); Albumin Level 3.6 gm/dl (3.4-5.0); Aspartate Aminotransferase 12 U/L (15-37); BUN Creatinine Ratio 23.8 (10-20); Blood Urea Nitrogen 16 mg/dl (7-18); Calcium 8.6 mg/dl (8.5-10.1); Carbon Dioxide 26 mmol/L (21-32); Chloride 111 mmol/L (98-107); Creatinine Clr Calc Pharmacy 135.2 ml/min; Est GFR (African American) 136.3; Est GFR (Non-African American) 117.6; Glucose 116 mg/dl (70-99); Potassium 3.8 mmol/L (3.5-5.1); Sodium 144 mmol/L (136-145)
[2018-12-18 22:14] LABS: INR 4.9 (0.9-1.1); Prothrombin Time 44.9 Seconds (9.0-12.0)
[2018-12-18 22:17] LABS: Alkaline Phosphatase 83 U/L (45-117); Bilirubin,Total 0.2 mg/dl (0.2-1); Creatine Kinase 58 U/L (39-308); Creatine Kinase MB 1.1 ng/ml (0.5-3.6); Globulin 3.5 gm/dl (2.5-4.0); Total Protein 7.1 gm/dl (6.4-8.2); Troponin I < 0.015 ng/ml (0-0.045)
[2018-12-18 22:29] LABS: Influenza A virus by PCR Neg for Influ A (Neg); Influenza B virus by PCR Neg for Influ B (Neg)
[2018-12-18] MEDS ORDERED: KETOROLAC 30 MG/ML VIAL IV STA (22:53)
[2018-12-18] MEDS ORDERED: AZITHROMYCIN 250 MG TAB PO ONE (22:53)
[2018-12-18 23:35] LABS: Allen Test Pos (Pos); HCO3 ABG 24 mmol/L (19-24); Oxygen Saturation ABG 96.9 % (90-95); PCO2 ABG 34 mmHg (35-46); PO2 ABG 84 mm/Hg (80-95); pH ABG 7.46 (7.35-7.45)
--- NOTE | 2018-12-18 23:58 | History & Physical Report ---
Date of Service December 18, 2018 Assessment & Plan (1) Asthma exacerbation: In the ED and Solu-Medrol 25 mg IV, azithromycin 500 mg p.o., DuoNeb x1 and magnesium sulfate 1 g IV. Continue montelukast sodium [address] on Solu-Medrol 40 mg IV every 8 hours. Change Xopenex to 1.25 mg every 6 hours scheduled. Add Atrovent every 6 hours. Both will be every 2 hours as needed as well. Add Pulmicort Respules 0.5 mg inhaled twice daily. Present on Admission?: Yes (2) Pectus excavatum: Stable on x-ray. Present on Admission?: Yes (3) Pulmonary embolism: Hold warfarin today, as INR supratherapeutic at 4.9. Follow daily PT/INR. Present on Admission?: Yes (4) GERD (gastroesophageal reflux disease): Continue omeprazole 20 mg p.o. every morning Present on Admission?: Yes (5) Esophageal spasm: Continue diltiazem 60 mg p.o. at bedtime Present on Admission?: Yes (6) Allergic rhinitis: Continue azelastine, cetirizine, fexofenadine, fluticasone nasal spray. Present on Admission?: Yes (7) Hypothyroidism (acquired): Continue levothyroxine sodium 25 mcg every morning. Present on Admission?: Yes (8) Anxiety: Continue lorazepam 0.5 mg p.o. 3 times daily as needed Present on Admission?: Yes (9) Chronic pain syndrome: Continue [place] 5/325, 1 p.o. every 4 hours as needed moderate pain Present on Admission?: Yes (10) Osteoporosis: On Prolia as outpatient. Continue calcium carbonate plus vitamin D. Present on Admission?: Yes History of Present Illness Chief Complaint: The patient presents to the emergency department with the sense of not being able to get enough air in, and with his voice he whispers as he fe els like he is not able to get enough air out as well. Primary Care Provider: Barrington Adorno MD The patient is a 43-year-old male, with a past medical history including aspiration pneumonia, esophageal spasm, DVT, pulmonary embolism, pectus excavatum, severe scoliosis, allergic rhinitis and asthma who presents to the emergency department after being noted at work today to have difficulty with breathing and fatigue. 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 He denies any cough. He has not had any recent travels or sick exposures that he is aware of. He has been using his medications, including inhalers as directed. Allergies Allergy/AdvReac Type Severity Reaction Status Date / Time gluten Allergy Unknown STOMACH Verified 12/18/18 21:49 ISSUES Cipro AdvReac Intermediate issue with Verified 08/19/17 14:34 legs ciprofloxacin AdvReac Intermediate issue with Verified 12/18/18 21:49 legs oxycodone AdvReac Mild GI upset Verified 12/18/18 21:49 Home Medications Home Medications Medication Instructions Recorded Confirmed Type ascorbic acid (vitamin C) [Vitamin 2,000 mg PO QAM 09/05/18 12/18/18 History C] azelastine 1 spray INTRANASAL QAM 09/05/18 12/18/18 History calcium carbonate-vitamin D3 1 tab PO BID 09/05/18 12/18/18 History [Calcium 600 + D(3)] cholecalciferol (vitamin D3) 1,000 unit PO QAM 09/05/18 12/18/18 History [Vitamin D3] diltiazem HCl 60 mg PO HS 09/05/18 12/18/18 History levalbuterol tartrate 2 inh INHALATION BID PRN 09/05/18 12/18/18 History levothyroxine 25 mcg PO QAM 09/05/18 12/18/18 History meclizine 25 mg PO TID PRN 09/05/18 12/18/18 History montelukast [Singulair] 10 mg PO QAM 09/05/18 12/18/18 History multivitamin 1 tab PO QAM 09/05/18 12/18/18 History omega 8-gow-pne-fish oil [Fish Oil] 1,200 mg PO QAM 09/05/18 12/18/18 History warfarin 10 mg PO UD 09/05/18 12/18/18 History fexofenadine [Dilma Allergy] 180 mg PO QAM 09/18/18 12/18/18 History omeprazole 20 mg PO QAM 09/18/18 12/18/18 History Prolia See Rx Instructions .ROUTE .COMPLEX 10/10/18 12/18/18 History lorazepam [Ativan] 0.5 mg PO TID PRN 10/10/18 12/18/18 History hydrocodone-acetaminophen [[place]] 1 - 2 tab PO Q4H PRN #40 tab 10/11/18 12/18/18 Rx warfarin 2.5 mg PO UD 11/08/18 12/18/18 History cetirizine [Zyrtec] 10 mg PO DAILY 12/18/18 12/18/18 History fluticasone propionate 2 spray INTRANASAL DAILY 12/18/18 12/18/18 History levalbuterol HCl 1.25 mg INHALATION Q4H PRN 12/18/18 12/18/18 History Past Med/Surg History Social History Preferred Language: Icelandic Communication Ability: Effective Knock Up Assembler Required: No Beliefs That Will Affect Care: None marital status: Current Living Situation: Family Other Information That Helps Us Care for You: No Feels Safe at Home: Yes Safety Concerns: Feels Safe At This Time Smoking Status: Unknown if ever smoked Hx Alcohol Use: No Hx Substance Use: No Review of Systems Review of Systems: The patient denies chest pain, palpitations, cough, lower extremity swelling, fevers, chills, sweats, nausea, vomiting, diarrhea , constipation, abdominal pain, pelvic pain, blood in urine or stool, dysuria, urinary frequency or urgency, lightheadedness, dizziness, headache, memory loss, loss of consciousness, rash, abnormal bruising or bleeding, imbalance, focal weakness, numbness or tingling in arms or legs, or night sweats. The review of systems is otherwise negative other than for that already noted above, and at least 10 systems have been reviewed. Physical Exam Physical Exam: The patient is awake, alert and oriented 3, appears thin, talks in a whispered voice, significant kyphosis, lying in bed and in no acute distress. HEENT--PERRL, EOMI, mucous membranes and oropharynx normal. Neck--supple. No JVD. No bruits. Thyroid normal, trachea midline, no sam opathy. Heart--normal S1 and S2. No murmurs, rubs or gallops. Lungs--overall clear bilaterally, decreased excursion, pectus excavatum, no respiratory distress, no accessory muscle use. Abdomen--normal bowel sounds and soft. Nontender. Nondistended, no hernias or masses, no organomegaly. Extremities--no cyanosis or clubbing. No edema. There are good distal pulses b/l. Dermatologic--normal skin turgor, normal color, no abnormal lymph nodes, no rash. Neurologic--cranial nerves II through XII grossly intact. Rheumatologic--normal range of motion. Psychiatric--normal affect. Results & Data Vital Signs (Past 12 Hours) Vital Signs Temp Pulse Pulse Resp BP BP Pulse Ox 12/18/18 23:09 87 20 98/62 L 95 12/18/18 21:24 89 18 95 12/18/18 20:38 98.2 F 100 H 18 143/81 H 96 Laboratory Results Laboratory Results WBC 4.32 K/uL (4.8-10.8) L 12/18/18 21:36 RBC 4.24 M/uL (4.7-6.1) L 12/18/18 21:36 Hgb 11.0 g/dL (14.0-18.0) L 12/18/18 21:36 Hct 35.0 % (42-52) L 12/18/18 21:36 MCV 82.5 fL (80-100) 12/18/18 21:36 MCH 25.9 pg (25-34) 12/18/18 21:36 MCHC 31.4 g/dL (32-36) L 12/18/18 21:36 RDW Std Deviation 49.6 fL (36.4-46.3) H 12/18/18 21:36 RDW Coeff of Ligia 16.3 % (11.5-14.5) H 12/18/18 21:36 Plt Count 193 K/uL (130-400) 12/18/18 21:36 MPV 10.0 fL (7.4-10.4) 12/18/18 21:36 Immature Gran % (Auto) 0.2 % 12/18/18 21:36 Neut % (Auto) 75.3 % 12/18/18 21:36 Lymph % (Auto) 14.8 % 12/18/18 21:36 Craven % (Auto) 9.7 % 12/18/18 21:36 Eos % (Auto) 0.0 % 12/18/18 21:36 Baso % (Auto) 0.0 % 12/18/18 21:36 Immature Gran # (Auto) 0.01 K/uL (0.00-0.02) 12/18/18 21:36 Neut # (Auto) 3.25 K/uL (1.4-6.5) 12/18/18 21:36 Lymph # (Auto) 0.64 K/uL (1.2-3.4) L 12/18/18 21:36 Craven # (Auto) 0.42 K/uL (0.11-0.59) 12/18/18 21:36 Eos # (Auto) 0.00 K/uL (0-0.5) 12/18/18 21:36 Baso # (Auto) 0.00 K/uL (0-0.2) 12/18/18 21:36 PT 44.9 Seconds (9.0-12.0) H 12/18/18 21:36 INR 4.9 (0.9-1.1) H 12/18/18 21:36 ABG pH 7.46 (7.35-7.45) H 12/18/18 23:26 ABG pCO2 34 mmHg (35-46) L 12/18/18 23:26 ABG pO2 84 mm/Hg (80-95) 12/18/18 23:26 ABG HCO3 24 mmol/L (19-24) 12/18/18 23:26 ABG O2 Saturation 96.9 % (90-95) H 12/18/18 23:26 ABG Base Excess 0.2 mEq/L (-9-1.8) 12/18/18 23:26 Keith Test Pos (Pos) 12/18/18 23:26 Oxygen Given RA 12/18/18 23:26 Sodium 144 mmol/L (136-145) 12/18/18 21:36 Potassium 3.8 mmol/L (3.5-5.1) 12/18/18 21:36 Chloride 111 mmol/L (98-107) H 12/18/18 21:36 Carbon Dioxide 26 mmol/L (21-32) 12/18/18 21:36 Anion Gap 8.0 (3-11) 12/18/18 21:36 BUN 16 mg/dl (7-18) 12/18/18 21:36 Creatinine 0.66 mg/dl (0.6-1.4) 12/18/18 21:36 Est Cr Clr Drug Dosing 135.2 ml/min 12/18/18 21:36 Est GFR ( Amer) 136.3 12/18/18 21:36 Est GFR (Non-Af Amer) 117.6 12/18/18 21:36 BUN/Creatinine Ratio 23.8 (10-20) H 12/18/18 21:36 Glucose 116 mg/dl (70-99) H 12/18/18 21:36 Calcium 8.6 mg/dl (8.5-10.1) 12/18/18 21:36 Total Bilirubin 0.2 mg/dl (0.2-1) 12/18/18 21:36 AST 12 U/L (15-37) L 12/18/18 21:36 ALT 25 U/L (12-78) 12/18/18 21:36 Alkaline Phosphatase 83 U/L (45-117) 12/18/18 21:36 Total Creatine Kinase 58 U/L (39-308) 12/18/18 21:36 CK-MB (CK-2) 1.1 ng/ml (0.5-3.6) 12/18/18 21:36 CK/CKMB % Calc 1.9 (0-3.0) 12/18/18 21:36 Troponin I < 0.015 ng/ml (0-0.045) 12/18/18 21:36 Total Protein 7.1 gm/dl (6.4-8.2) 12/18/18 21:36 Albumin 3.6 gm/dl (3.4-5.0) 12/18/18 21:36 Globulin 3.5 gm/dl (2.5-4.0) 12/18/18 21:36 Albumin/Globulin Ratio 1.0 (0.9-2) 12/18/18 21:36 Lipase 85 U/L (73-393) 12/18/18 21:36 Influenza Type A (PCR) Neg for Influ A (Neg) 12/18/18 21:37 Influenza Type B (PCR) Neg for Influ B (Neg) 12/18/18 21:37 Diagnostic Findings [facility], [place] [phone] XRay Report Patient: ANGEL DANIELS Date: 12/18/18 MR#: [id number]: [id number] Acct ID:[id number] Date: 1975City Zip: [place] [address] Age: 43Location: ED Sex: M Room/Bed: Att Phy: Diagnosis: BREATING POORLY, INHALER NOT WORKING Chantal Phy: Barrington Adorno MDService Date: 12/18/18 Fam Phy: Ammon Roger PA-CInterpreting Phy: Gaudencio Roberts MD Admit Phy: Ordering Phy: Ignacio Tang MD cc: ~ XR chest 1V portable CLINICAL HISTORY: 43 years-old Male presenting with Chest Pain. TECHNIQUE: Portable upright AP view of the chest was obtained. COMPARISON: 11/07/2018. FINDINGS: The patient is [place]STA[place] rotated. Cardiac silhouette enlarged. Diffuse heterogeneity of lung parenchyma with prominence of pulmonary vasculature unchanged. Bibasal or opacities similar to prior exam. No new focal opacity. Underlying osteopenia suspected. Upper abdomen normal. IMPRESSION: 1. Apparent cardiomegaly may relate to patient rotation or the known pectus excavatum deformity. 2. Pulmonary vascular prominence suggest volume overload. 3. Bibasilar atelectasis or scarring similar to prior exam. No new superimposed infiltrate to suggest pneumonia. Electronically signed by: Gaudencio Roberts M.D. 12/18/2018 9:45 PM Code Status & VTE Plan Code Status Full code VTE Prophylaxis Plan VTE Prophylaxis will be ordered: Yes
[2018-12-19] MEDS ORDERED: MAGNESIUM HYDROXIDE SUSP 30 ML UDC PO PRN (00:41)
[2018-12-19] MEDS ORDERED: MECLIZINE HCL 25 MG TAB PO PRN (00:41)
[2018-12-19] MEDS ORDERED: LEVALBUTEROL HCL 1.25 MG/3 ML NEB INH PRN (00:41)
[2018-12-19] MEDS ORDERED: ONDANSETRON INJ 2 MG/ML 2 ML VIAL IV PRN (00:41)
[2018-12-19] MEDS ORDERED: ALUMINUM/MAGNESIUM SUSP 30 ML UDC PO PRN (00:41)
[2018-12-19] MEDS ORDERED: HYDROCODONE/ACETAMOPHEN 5/325MG TAB PO PRN (00:41)
[2018-12-19] MEDS ORDERED: LORazepam 0.5 MG TAB PO PRN (00:41)
[2018-12-19] MEDS ORDERED: ACETAMINOPHEN 325 MG TAB PO PRN (00:41)
[2018-12-19] MEDS ORDERED: dilTIAZem HCl 60 MG TAB PO ONE (01:30)
[2018-12-19] MEDS: LEVOTHYROXINE SODIUM 25 MCG TABLET PO SCH (06:12)
[2018-12-19] MEDS: methylPREDNISolone 40 MG in SYRINGE 0 ML IV SCH ×3 (06:38→22:05)
[2018-12-19] MEDS: IPRATROPIUM BROMIDE NEB SOLN 0.02% 2.5 ML VIAL INH SCH ×3 (07:08→19:42)
[2018-12-19] MEDS: BUDESONIDE 0.5 MG/2 ML VIAL (PULMICORT) NEB SCH ×2 (07:09→19:42)
[2018-12-19] MEDS: LEVALBUTEROL 1.25MG/0.5ML NEB INH SCH ×3 (07:09→19:42)
[2018-12-19] MEDS ORDERED: XOPENEX/ATROVENT 1.25mg/0.5MG NEB COMBO NEB SCH (08:00)
[2018-12-19] MEDS: AZELASTINE~ORDER AWAITING ACTION SCH ×3 (08:39→23:57)
[2018-12-19] MEDS: CHOLECALCIFEROL 1,000 UNITS TAB PO SCH (08:40)
[2018-12-19] MEDS: MULTIVITAMIN TAB PO SCH (08:40)
[2018-12-19] MEDS: FEXOFENADINE HCL 180 MG TAB PO SCH (08:40)
[2018-12-19] MEDS: ASCORBIC ACID 500 MG TAB PO SCH (08:41)
[2018-12-19] MEDS: CALCIUM 600MG + VIT D 400 IU TAB PO SCH ×2 (08:41→20:16)
[2018-12-19] MEDS: CETIRIZINE HCL 10 MG TABLET PO SCH (08:41)
[2018-12-19] MEDS: OMEGA-3 (PURIFIED FISH OIL) 1 GM CAP PO SCH (08:41)
[2018-12-19] MEDS: PANTOprazole 40 MG TAB PO SCH (08:42)
[2018-12-19] MEDS: FLUTICASONE PROPIONATE NA SPR 16 GM BTL NAE SCH (08:42)
[2018-12-19] MEDS ORDERED: MONTELUKAST SODIUM 10 MG TABLET PO SCH ×2 (09:00→21:00)
--- NOTE | 2018-12-19 13:17 | Pulmonary Consultation ---
Date of Consultation December 19, 2018 Assessment & Plan (1) Asthma exacerbation: Impression: 1. Restrictive lung disease secondary to pectus excavated him and kyphoscoliosis. 2. Tertiary esophagus with recurrent aspiration. 3. History of asthma has been treated with as needed inhalers and occasionally with steroids course. Approximately 1 course per year. 4. Cardiomegaly with pulmonary vascular congestion, etiology is unknown. 5. ? Has this patient tested for Marfan syndrome. Plan: 1. Given the fact the patient failed twice oral steroids as an outpatient, I will place him on Solu-Medrol 40 mg IV every 8 hours for 24 hours and then switch him to prednisone p.o. 2. Continue bronchodilators. 3. I will obtain proBNP and echocardiogram. 4. The patient can be changed to prednisone 40 mg p.o. daily for 5 days in the morning and then taper by 10 mg every other day. 5. Agree with discontinuing antibiotics. 6. Discussed with the patient in details. Thank you, will follow. History of Present Illness Reason for Consultation: COPD Requesting Physician: Dr. Cates Attending Physician: Kasi Cates MD History of Present Illness Dear Dr. Cates: Thank you for the kind referral of Mr. Vazquez to pulmonary service. This is 43-year-old gentleman with history of pectus excavated him, hyperinflated lungs, chronic restrictive lung disease, kyphoscoliosis, not amenable to surgery as he was evaluated in the past, recurrent pneumonia with bronchiectasis noted also on previous CAT scan, patient presented to the hospital with increasing shortness of breath and started empirically on 60 mg of prednisone 2 days prior to his arrival. He forgot to take the medication the next day and his respiratory status worsen. He presented to the hospital for further management. The patient has multiple admissions in the past with similar presentation. However his most recent admission to the hospital for total hip replacement was 2 months ago. Denies any cough with sputum production. Denies any orthopnea and there is no paroxysmal nocturnal dyspnea. He denies any back pain or chest pain, he does have postnasal drip and seasonal allergies he does have also heartburn as well. Denies any weight loss, no change in bowel movements or urine habits, no rash and no skin changes. He denies any oral thrush. No change in his voice either. Allergies Allergy/AdvReac Type Severity Reaction Status Date / Time gluten Allergy Unknown STOMACH Verified 12/18/18 21:49 ISSUES Cipro AdvReac Intermediate issue with Verified 08/19/17 14:34 legs ciprofloxacin AdvReac Intermediate issue with Verified 12/18/18 21:49 legs oxycodone AdvReac Mild GI upset Verified 12/18/18 21:49 Home Medications Home Medications Medication Instructions Recorded Confirmed Type ascorbic acid (vitamin C) [Vitamin 2,000 mg PO QAM 09/05/18 12/18/18 History C] azelastine 1 spray INTRANASAL QAM 09/05/18 12/18/18 History calcium carbonate-vitamin D3 1 tab PO BID 09/05/18 12/18/18 History [Calcium 600 + D(3)] cholecalciferol (vitamin D3) 1,000 unit PO QAM 09/05/18 12/18/18 History [Vitamin D3] diltiazem HCl 60 mg PO HS 09/05/18 12/18/18 History levalbuterol tartrate 2 inh INHALATION BID PRN 09/05/18 12/18/18 History levothyroxine 25 mcg PO QAM 09/05/18 12/18/18 History meclizine 25 mg PO TID PRN 09/05/18 12/18/18 History montelukast [Singulair] 10 mg PO QAM 09/05/18 12/18/18 History multivitamin 1 tab PO QAM 09/05/18 12/18/18 History omega 5-eau-qlk-fish oil [Fish Oil] 1,200 mg PO QAM 09/05/18 12/18/18 History warfarin 10 mg PO UD 09/05/18 12/18/18 History fexofenadine [Dilma Allergy] 180 mg PO QAM 09/18/18 12/18/18 History omeprazole 20 mg PO QAM 09/18/18 12/18/18 History Prolia See Rx Instructions .ROUTE .COMPLEX 10/10/18 12/18/18 History lorazepam [Ativan] 0.5 mg PO TID PRN 10/10/18 12/18/18 History hydrocodone-acetaminophen [[place]] 1 - 2 tab PO Q4H PRN #40 tab 10/11/18 12/18/18 Rx warfarin 2.5 mg PO UD 11/08/18 12/18/18 History cetirizine [Zyrtec] 10 mg PO DAILY 12/18/18 12/18/18 History fluticasone propionate 2 spray INTRANASAL DAILY 12/18/18 12/18/18 History levalbuterol HCl 1.25 mg INHALATION Q4H PRN 12/18/18 12/18/18 History Patient History Medical History Avascular necrosis of hip Osteoporosis GERD (gastroesophageal reflux disease) Asthma Bronchiectasis FOLLOWS WITH PULMONARY Dextroscoliosis Hearing deficit HEARING AIDS Hx of deep venous thrombosis 2016 Hx pulmonary embolism 2016 Hypothyroidism Pectus excavatum Surgical History History of placement of ear tubes (Acute) left ear History of ear surgery X4 Hx of hemorrhoidectomy Family History Other Diabetes Heart disease Social History Preferred Language: Austrian Communication Ability: Effective Email Deployment Specialist Required: No Beliefs That Will Affect Care: None marital status: Current Living Situation: Family Other Information That Helps Us Care for You: No Feels Safe at Home: Yes Safety Concerns: Feels Safe At This Time Smoking Status: Unknown if ever smoked Hx Alcohol Use: No Hx Substance Use: No Review of Systems Review of Systems: Review of system otherwise were unremarkable except for the above mentioned in the first section. Physical Exam Physical Exam: Physical exam revealed stable vital signs, S1-S2, regular rate and rhythm, lungs were clear, kyphosis with mild scoliosis, severe pectus excavating, hyperinflated lungs, elongated digits, neurologically he is intact, no oral thrush, no skin rash, no joint swelling. Results & Data Vital Signs (Past 12 Hours) Vital Signs Temp Pulse Pulse Resp BP BP Pulse Ox 12/19/18 11:46 37 C 97 H 18 116/69 96 12/19/18 08:00 92 H 12/19/18 07:44 37 C 95 H 18 114/75 97 12/19/18 07:08 87 18 96 12/19/18 04:00 36.7 C 92 H 17 113/60 96 12/19/18 02:26 66 12/19/18 01:53 36.9 C 80 18 113/68 98 12/19/18 01:51 36.9 C 80 18 113/68 98 Laboratory Results Labs were reviewed which showed mild leukopenia, BMP is acceptable. No CO2 retention. Diagnostic Findings Chest x-ray and CAT scan reviewed personally which showed mild pulmonary vascular congestion, hyperinflated lungs, kyphoscoliosis, slight cardiomegaly.
--- NOTE | 2018-12-19 15:33 | Hospitalist Progress Note ---
Date of Service December 19, 2018 Assessment & Plan (1) Asthma exacerbation: Unknown inciting factor. - Continue IV steroids per pulm - Hold abx as this does not appear infectious - Continue montelukast sodium 10 mg daily. - Continue nebs scheduled and PRN. - Getting echo and BNP for possible pulmonary edema (2) Pulmonary embolism: INR was supratherapeutic at 4.9 on admission. - Held warfarin initially - Follow daily PT/INR (3) Pectus excavatum: Stable on x-ray. - No inpatient needs (4) GERD (gastroesophageal reflux disease): - Continue omeprazole 20 mg p.o. every morning (5) Esophageal spasm: No current spasm. - Continue diltiazem 60 mg p.o. at bedtime (6) Allergic rhinitis: - Continue azelastine, cetirizine, fexofenadine, fluticasone nasal spray. (7) Hypothyroidism (acquired): - Continue levothyroxine sodium 25 mcg every morning. (8) Anxiety: - Continue lorazepam 0.5 mg p.o. 3 times daily as needed (9) Chronic pain syndrome: - Continue [place] 5/325, 1 p.o. every 4 hours as needed moderate pain (10) Osteoporosis: On Prolia as outpatient. - Continue calcium carbonate plus vitamin D. Subjective Feeling improved, but shortness of breath not resolved yet. Reports no fevers/chills, chest pain, abdominal pain, nausea, or vomiting. Review of Systems Review of Systems: All systems reviewed & are unremarkable except as noted in HPI & below Physical Exam Constitutional: WD/WN, vitals as above Eyes: EOM intact bilaterally; no conjunctival abnormality ENMT: external ear and nose normal, oropharynx normal Neck: trachea midline, no thyromegaly normal visual inspection Respiratory: normal respiratory effort, lungs clear to auscultation no respiratory distress Auscultation: + wheezes (Very mild) Cardiovascular: RRR, no murmur, no edema Gastrointestinal (Abdomen): Inspection/Auscultation: abdomen normal to inspection; abdomen not distended Musculoskeletal: no cyanosis or clubbing, extremities motor strength 5/5 Skin: no rashes, warm and dry Neurologic: moves all extremities and awake Psychiatric: Orientation: alert, oriented to person and cooperative Results & Data Vital Signs (Past 12 Hours) Vital Signs Temp Pulse Pulse Resp BP BP Pulse Ox 05/14/19 13:36 91 H 16 96 12/19/18 11:46 37 C 97 H 18 116/69 96 12/19/18 08:00 92 H 12/19/18 07:44 37 C 95 H 18 114/75 97 12/19/18 07:08 87 18 96 12/19/18 04:00 36.7 C 92 H 17 113/60 96 12/19/18 02:26 66 12/19/18 01:53 36.9 C 80 18 113/68 98 12/19/18 01:51 36.9 C 80 18 113/68 98
[2018-12-19] MEDS ORDERED: dilTIAZem HCl 60 MG TAB PO SCH (21:00)
[2018-12-20] MEDS: LEVALBUTEROL 1.25MG/0.5ML NEB INH SCH ×2 (01:44→06:59)
[2018-12-20] MEDS: IPRATROPIUM BROMIDE NEB SOLN 0.02% 2.5 ML VIAL INH SCH ×2 (01:44→07:00)
[2018-12-20] MEDS: methylPREDNISolone 40 MG in SYRINGE 0 ML IV SCH (05:37)
[2018-12-20] MEDS: LEVOTHYROXINE SODIUM 25 MCG TABLET PO SCH (05:37)
[2018-12-20] MEDS: BUDESONIDE 0.5 MG/2 ML VIAL (PULMICORT) NEB SCH (07:00)
[2018-12-20 07:08] LABS: INR 2.9 (0.9-1.1); Prothrombin Time 27.7 Seconds (9.0-12.0)
[2018-12-20] MEDS: AZELASTINE~ORDER AWAITING ACTION SCH (07:56)
[2018-12-20] MEDS: FLUTICASONE PROPIONATE NA SPR 16 GM BTL NAE SCH (07:56)
[2018-12-20] MEDS: ASCORBIC ACID 500 MG TAB PO SCH (07:57)
[2018-12-20] MEDS: CALCIUM 600MG + VIT D 400 IU TAB PO SCH (07:57)
[2018-12-20] MEDS: OMEGA-3 (PURIFIED FISH OIL) 1 GM CAP PO SCH (07:58)
[2018-12-20] MEDS: MULTIVITAMIN TAB PO SCH (07:58)
[2018-12-20] MEDS: FEXOFENADINE HCL 180 MG TAB PO SCH (07:58)
[2018-12-20] MEDS: PANTOprazole 40 MG TAB PO SCH (07:58)
[2018-12-20] MEDS: CHOLECALCIFEROL 1,000 UNITS TAB PO SCH (07:58)
[2018-12-20] MEDS: CETIRIZINE HCL 10 MG TABLET PO SCH (07:59)
--- NOTE | 2018-12-20 12:15 | Pulmonology Progress Note ---
Date of Service December 20, 2018 Assessment & Plan (1) Asthma exacerbation: Impression: 1. Restrictive lung disease secondary to pectus excavated him and kyphoscoliosis. 2. Tertiary esophagus with recurrent aspiration. 3. History of asthma has been treated with as needed inhalers and occasionally with steroids course. Approximately 1 course per year. 4. Cardiomegaly with pulmonary vascular congestion, etiology is unknown. 5. ? Has this patient tested for Marfan syndrome. Plan: 1. Change Solu-Medrol to prednisone 40 mg p.o. daily for 5 days then taper by 10 mg every other day. In case the patient has a relapse, I instructed him to increase his dose to 40 mg and call his pulmonary provider. 2. Continue bronchodilators. 3. Echo can be obtained as an outpatient. 4. Discharge patient home. 5. No need for antibiotics. 6. Discussed with Dr. Cates, and the patient. Thank you, will follow as needed inpatient. Subjective The patient is feeling better, he denies any shortness of breath, he is ambulatory by himself. No events overnight, did not require additional breathing treatment. Review of Systems Review of Systems: Review of system otherwise was unremarkable. Physical Exam Physical Exam: Vital signs are stable, S1-S2 regular rate and rhythm, kyphosis, pectus excavating, clear lung woo, abdomen is benign, no edema, neurologically intact, no oral thrush. Results & Data Vital Signs (Past 12 Hours) Vital Signs Temp Pulse Pulse Resp BP BP Pulse Ox 12/20/18 11:14 36.8 C 84 17 113/66 104/60 96 12/20/18 10:44 36.8 C 84 17 113/66 96 12/20/18 08:00 74 12/20/18 07:01 82 18 95 12/20/18 06:55 36.7 C 82 16 104/62 97 12/20/18 03:30 36.8 C 83 18 104/60 97 12/20/18 00:18 95 H 12/20/18 00:13 36.9 C 88 18 103/58 L 98 Laboratory Results INR is 2.9. Diagnostic Findings No new imaging.
--- NOTE | 2018-12-20 15:16 | Discharge Summary ---
Date of Service December 20, 2018 Admission HPI Per Admitting Provider The patient is a 43-year-old male, with a past medical history including aspiration pneumonia, esophageal spasm, DVT, pulmonary embolism, pectus excavatum, severe scoliosis, allergic rhinitis and asthma who presents to the emergency department after being noted at work today to have difficulty with breathing and fatigue. 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 He denies any cough. He has not had any recent travels or sick exposures that he is aware of. He has been using his medications, including inhalers as directed. Principal Diagnosis Asthma exacerbation Discharge Exam Constitutional WD/WN, vitals as above Eyes EOM intact bilaterally; no conjunctival abnormality ENMT external ear and nose normal, oropharynx normal Neck trachea midline, no thyromegaly normal visual inspection Respiratory normal respiratory effort, lungs clear to auscultation no respiratory distress Auscultation: + wheezes (Very mild) Cardiovascular RRR, no murmur, no edema Gastrointestinal (Abdomen) Inspection/Auscultation: abdomen normal to inspection; abdomen not distended Musculoskeletal no cyanosis or clubbing, extremities motor strength 5/5 Skin no rashes, warm and dry Neurologic moves all extremities and awake Psychiatric Orientation: alert, oriented to person and cooperative Discharge Data Allergies Allergy/AdvReac Type Severity Reaction Status Date / Time gluten Allergy Unknown STOMACH Verified 12/18/18 21:49 ISSUES Cipro AdvReac Intermediate issue with Verified 08/19/17 14:34 legs ciprofloxacin AdvReac Intermediate issue with Verified 12/18/18 21:49 legs oxycodone AdvReac Mild GI upset Verified 12/18/18 21:49 Consultations 12/18/18 23:05 ED Decision to Admit Stat 12/19/18 00:41 Consult Case Management - Discharge Planning Routine 12/19/18 09:34 Consult Pulmonology Routine Hospital Course (1) Asthma exacerbation: Unknown inciting factor -> Possibly due to pollen/environment. - Switched to PO predisone on discharge. - Held abx as this does not appear infectious - Continued montelukast sodium 10 mg daily. - Continued nebs scheduled and PRN. (2) Pulmonary embolism: INR was supratherapeutic at 4.9 on admission. - Held warfarin initially - INR was 2.9 on day of discharge. Told to take warfarin 10mg daily until Tuesday when he will get an INR repeat. (3) Pectus excavatum: Stable on x-ray. - No inpatient needs (4) GERD (gastroesophageal reflux disease): - Continued omeprazole 20 mg p.o. every morning (5) Esophageal spasm: No current spasm. - Continued diltiazem 60 mg p.o. at bedtime (6) Allergic rhinitis: - Continued azelastine, cetirizine, fexofenadine, fluticasone nasal spray. (7) Hypothyroidism (acquired): - Continued levothyroxine sodium 25 mcg every morning. (8) Anxiety: - Continue lorazepam 0.5 mg p.o. 3 times daily as needed (9) Chronic pain syndrome: - Continue [place] 5/325, 1 p.o. every 4 hours as needed moderate pain (10) Osteoporosis: On Prolia as outpatient. - Continue calcium carbonate plus vitamin D. Total Time Total Time Spent Total Time Spent (In Minutes): 35 Total Time Includes: Examination of the Patient, Discharge Planning, Medication Reconciliation and Communication With Other Providers Discharge Plan Discharge Items Patient Disposition: Home - Self-Care Reason For Visit: ASTHMA EXACERBATION Discharge Diagnosis: Asthma exacerbation Discharge Goals: Decrease discomfort and Improve function Activity: Resume your previous activity Non-emergency contact: Primary Care Provider and Post Partum Nurse Call non-emergency contact if: your symptoms worsen, your pain is not controlled and your temperature is above 100.5 Follow-up/Referrals: Ammon Roger PA-C [Family Provider] - 01/02/19 8:30 am (Please, follow up with Santiago Roger PA-C on TuesdayJanuary 02 at 8:30 am. *If you need to change this appointment, call the office at [phone].) Jefe Adorno MD [Primary Care Provider] - 01/04/19 11:00 am (Please, follow up at Dr. Adorno's office with his bakery assistant, Renee Rey PA-C, on January 04 at 11:00 am. *If you need to change this appointment, call the office at [phone].) Diet: Heart Healthy Addtl Provider Instructions: Mr. aVzquez, You were admitted to the hospital with an asthma exacerbation. You improved over 24 hours on IV steroids and breathing treatments. Please start your oral prednisone tomorrow. You will take 40 mg every day for 5 days, then taper by 10 mg every other day. Take 40 mg (4 pills) daily until December 24 Take 30 mg (3 pills) daily December 25 & Take 20 mg (2 pills) daily December 27 & Take 10 mg (1 pill) daily December 29 & Then stop. Please see Mr. Roger for follow up of your lung care. Until you have your INR checked on December 25, please only take warfarin 10mg daily to prevent your INR from going too high. On discharge, it was 2.9. Prescriptions: New prednisone 10 mg tablet 40 mg PO DAILY Qty: 28 RF: 0 Continued multivitamin Tablet 1 tab PO QAM RF: 0 ascorbic acid (vitamin C) [Vitamin C] 1,000 mg Tablet 2,000 mg PO QAM RF: 0 warfarin 10 mg tablet 10 mg PO UD RF: 0 levothyroxine 25 mcg Tablet 25 mcg PO QAM RF: 0 meclizine 25 mg tablet 25 mg PO TID PRN (Reason: Dizziness) RF: 0 montelukast [Singulair] 10 mg Tablet 10 mg PO QAM RF: 0 azelastine 137 mcg (0.1 %) aerosol,spray 1 spray Intranasal QAM RF: 0 diltiazem HCl 60 mg Tablet 60 mg PO HS RF: 0 levalbuterol tartrate 45 mcg/actuation Hfa Aerosol Inhaler 2 inh INHALATION BID PRN (Reason: Shortness Of Breath) RF: 0 cholecalciferol (vitamin D3) [Vitamin D3] 1,000 unit Tablet 1,000 unit PO QAM RF: 0 calcium carbonate-vitamin D3 [Calcium 600 + D(3)] 600 mg(1,500mg) -400 unit Tablet 1 tab PO BID RF: 0 omega 5-dgt-zbt-fish oil [Fish Oil] 1,000 mg (120 mg-180 mg) Capsule 1,200 mg PO QAM RF: 0 fexofenadine [Dilma Allergy] 180 mg Tablet 180 mg PO QAM RF: 0 omeprazole 20 mg Tablet,Delayed Release (Dr/Ec) 20 mg PO QAM RF: 0 Prolia 60 mg/mL Syringe See Rx Instructions .ROUTE .COMPLEX RF: 0 lorazepam [Ativan] 0.5 mg Tablet 0.5 mg PO TID PRN (Reason: Anxiety) RF: 0 hydrocodone-acetaminophen [[place]] 5-325 mg Tablet 1 - 2 tab PO Q4H PRN (Reason: pain) Qty: 40 RF: 0 fluticasone propionate 50 mcg/actuation spray,suspension 2 spray intranasal DAILY RF: 0 cetirizine [Zyrtec] 10 mg Tablet 10 mg PO DAILY RF: 0 levalbuterol HCl 1.25 mg/3 mL solution for nebulization 1.25 mg inhalation Q4H PRN (Reason: Shortness Of Breath Or Wheezing) RF: 0 Discontinued warfarin 2.5 mg tablet 2.5 mg PO UD RF: 0 Stand-Alone Forms: [facility], Work/School Release (Inpt) Discharge Orders: Discharge Order (Routine); Ordered 12/20/18 Ordered By: Kasi Cates Admission Data Admit Date/Time: 12/18/18 23:57 Attending Provider: Kasi Cates Admit Provider: Rosales Gray Primary Care Provider: Jefe Adorno Other Providers: Kasi Cates ; Dilshad Whyte Service: Telemetry Other Interventions: Discharge Summary Assessment (RN) Last Done: 12/20/18 11:14 DC Date/Time DO NOT enter until pt leaves facility: 12/20/18 12:19
--- NOTE | 2018-12-20 20:08 | Emergency Department Note ---
Entered by Guillermo Candelaria acting as a scribe for Ignacio Tang MD History of Present Illness General Chief complaint: Shortness of Breath/Dyspnea Stated complaint: BREATING POORLY, INHALER NOT WORKING Time Seen by Provider: 12/18/18 20:50 Source: family () History of Present Illness Onset (ago): hour(s) (earlier today) Location: chest (shortness of breath) Pain Consistency: + other (worsening) Maximum Pain Intensity: 0 Relieved By: not by medication (nebulizer) Associated symptoms: no other (abdominal pain) Treatments prior to arrival: other (steroid medication) The patient is a 43 year old M who presents to the Emergency Room with complaints of worsening shortness of breath that started earlier today. The HPI was primarily provided by the patients . She states that the patient has been using a nebulizer at home to no relief. She notes that the patient in currently on steroids. She states that the patient has had two doses of the steroids recently, one dose on Tuesday and one dose today. The patient denies currently experiencing any abdominal pain. Home Medications Home Medications Medication Instructions Recorded Confirmed Type ascorbic acid (vitamin C) [Vitamin 2,000 mg PO QAM 09/05/18 12/18/18 History C] azelastine 1 spray INTRANASAL QAM 09/05/18 12/18/18 History calcium carbonate-vitamin D3 1 tab PO BID 09/05/18 12/18/18 History [Calcium 600 + D(3)] cholecalciferol (vitamin D3) 1,000 unit PO QAM 09/05/18 12/18/18 History [Vitamin D3] diltiazem HCl 60 mg PO HS 09/05/18 12/18/18 History levalbuterol tartrate 2 inh INHALATION BID PRN 09/05/18 12/18/18 History levothyroxine 25 mcg PO QAM 09/05/18 12/18/18 History meclizine 25 mg PO TID PRN 09/05/18 12/18/18 History montelukast [Singulair] 10 mg PO QAM 09/05/18 12/18/18 History multivitamin 1 tab PO QAM 09/05/18 12/18/18 History omega 9-wdh-pck-fish oil [Fish Oil] 1,200 mg PO QAM 09/05/18 12/18/18 History warfarin 10 mg PO UD 09/05/18 12/18/18 History fexofenadine [Dilma Allergy] 180 mg PO QAM 09/18/18 12/18/18 History omeprazole 20 mg PO QAM 09/18/18 12/18/18 History Prolia See Rx Instructions .ROUTE .COMPLEX 10/10/18 12/18/18 History lorazepam [Ativan] 0.5 mg PO TID PRN 10/10/18 12/18/18 History hydrocodone-acetaminophen [[place]] 1 - 2 tab PO Q4H PRN #40 tab 10/11/18 12/18/18 Rx cetirizine [Zyrtec] 10 mg PO DAILY 12/18/18 12/18/18 History fluticasone propionate 2 spray INTRANASAL DAILY 12/18/18 12/18/18 History levalbuterol HCl 1.25 mg INHALATION Q4H PRN 12/18/18 12/18/18 History prednisone 40 mg PO DAILY #28 tab 12/20/18 Rx Allergies Allergy/AdvReac Type Severity Reaction Status Date / Time gluten Allergy Unknown STOMACH Verified 12/18/18 21:49 ISSUES Cipro AdvReac Intermediate issue with Verified 08/19/17 14:34 legs ciprofloxacin AdvReac Intermediate issue with Verified 12/18/18 21:49 legs oxycodone AdvReac Mild GI upset Verified 12/18/18 21:49 Past Med/Surg History Medical History Avascular necrosis of hip Osteoporosis GERD (gastroesophageal reflux disease) Asthma Bronchiectasis FOLLOWS WITH PULMONARY Dextroscoliosis Hearing deficit HEARING AIDS Hx of deep venous thrombosis 2016 Hx pulmonary embolism 2016 Hypothyroidism Pectus excavatum Surgical History History of placement of ear tubes (Acute) left ear History of ear surgery X4 Hx of hemorrhoidectomy Family History Other Diabetes Heart disease Social History Preferred Language: Urdu Communication Ability: Effective Metal Die Finisher Required: No Beliefs That Will Affect Care: None marital status: Current Living Situation: Family Other Information That Helps Us Care for You: No Feels Safe at Home: Yes Safety Concerns: Feels Safe At This Time Smoking Status: Unknown if ever smoked Hx Alcohol Use: No Hx Substance Use: No Review of Systems See HPI for pertinent positives & negatives. and A total of 10 systems reviewed and were otherwise negative Physical Exam Vital Signs Vital Signs - 24 hr 12/18/18 20:37 12/18/18 20:38 12/18/18 21:10 Temperature 98.2 F Temperature Source Oral Sepsis Recent Fever Within 48 Hours No Sepsis Action Taken by Nursing No Action Required Pulse Rate 100 H Pulse Rate [Right Finger] Respiratory Rate 18 Respiratory Effort / Characteristics Non-Labored Spontaneous Non-Labored Spontaneous Respiratory Depth Normal Normal Respiratory Pattern Regular Regular Blood Pressure 143/81 H Blood Pressure [Left Arm] Blood Pressure Mean 101 Blood Pressure Mean [Left Arm] Blood Pressure Position Sitting Pulse Oximetry 96 Oxygen Delivery Method Room Air Room Air Room Air 12/18/18 21:24 12/18/18 23:09 Temperature Temperature Source Sepsis Recent Fever Within 48 Hours Sepsis Action Taken by Nursing Pulse Rate Pulse Rate [Right Finger] 89 87 Respiratory Rate 18 20 Respiratory Effort / Characteristics Non-Labored Spontaneous Non-Labored Respiratory Depth Normal Respiratory Pattern Blood Pressure Blood Pressure [Left Arm] 98/62 L Blood Pressure Mean Blood Pressure Mean [Left Arm] 74 Blood Pressure Position Pulse Oximetry 95 95 Oxygen Delivery Method Room Air Room Air GENERAL: Awake, alert, well-appearing, in no acute distress HENT: Normocephalic, atraumatic. Oropharynx unremarkable. EYES: Normal conjunctiva. Sclera non-icteric. NECK: Supple. No nuchal rigidity. FROM. No JVD. RESPIRATORY: conversationally dyspneic, pectus excavatum, diminished breath sounds, no wheezing CARDIAC: Regular rate, normal rhythm. Extremities warm and well perfused. Pulses equal. ABDOMEN: Soft, non-distended. No tenderness to palpation. No rebound or guarding. No masses. RECTAL: Deferred. MUSCULOSKELETAL: Chest examination reveals no tenderness. The back is symmetrical on inspection without obvious abnormality. There is no CVA tenderness to palpation. No joint edema. LOWER EXTREMITIES: Calves are equal size bilaterally and non-tender. No edema. No discoloration. NEURO: Normal sensorium. No sensory or motor deficits noted. SKIN: No rash or jaundice noted. Course 2106: The patient was evaluated in room A12B. A complete history and physical ex am was performed. 3: I re-checked the patient and updated him on his test results. 5: I reviewed the patient's case with Dr. Rosales Gray, [facility] Hospitalist. He will evaluate the patient for further management. Consultations Consultation #1: I reviewed the patient's case with Dr. Rosales Gray, [facility] Hospitalist. He will evaluate the patient for further management. Time: 23:05 Administered Medications Discontinued Medications Albuterol (Duoneb) 12 ml NEB ONE ONE Stop: 12/18/18 21:11 Last Admin: 12/18/18 21:24 Dose: 12 ml Documented by: [id number] Ascorbic Acid (Vitamin C) 2,000 mg PO QAM [facility] Stop: 01/18/19 08:59 Last Admin: 12/20/18 07:57 Dose: 2,000 mg Documented by: [id number] Admin: 12/19/18 08:41 Dose: 2,000 mg Documented by: [id number] Azithromycin (Zithromax) 500 mg PO NOW ONE Stop: 12/18/18 22:54 Last Admin: 12/18/18 23:09 Dose: 500 mg Documented by: [id number] Budesonide (Pulmicort Respules) 0.5 mg NEB BIDR SARAN Stop: 01/18/19 07:59 Last Admin: 12/20/18 07:00 Dose: 0.5 mg Documented by: [id number] Admin: 12/19/18 19:42 Dose: 0.5 mg Documented by: [id number] Admin: 12/19/18 07:09 Dose: 0.5 mg Documented by: [id number] Cetirizine HCl (Zyrtec) 10 mg PO DAILY SARAN Stop: 01/18/19 08:59 Last Admin: 12/20/18 07:59 Dose: 10 mg Documented by: [id number] Admin: 12/19/18 08:41 Dose: 10 mg Documented by: [id number] Diltiazem HCl (Cardizem) 60 mg PO HS SARAN Stop: 01/18/19 20:59 Last Admin: 12/19/18 20:17 Dose: 60 mg Documented by: [id number] Diltiazem HCl (Cardizem) 60 mg PO ONE ONE Stop: 12/19/18 01:31 Last Admin: 12/19/18 01:36 Dose: 60 mg Documented by: [id number] Fexofenadine HCl (Dilma) 180 mg PO QAM [facility]AN Stop: 01/18/19 08:59 Last Admin: 12/20/18 07:58 Dose: 180 mg Documented by: [id number] Admin: 12/19/18 08:40 Dose: 180 mg Documented by: [id number] Fish Oil ([place]-3 (Purified Fish Oil)) 1 gm PO QAM SARAN Stop: 01/18/19 08:59 Last Admin: 12/20/18 07:58 Dose: 1 gm Documented by: [id number] Admin: 12/19/18 08:41 Dose: 1 gm Documented by: [id number] Fluticasone Propionate (Flonase) 2 sprays SIDNEY DAILY SARAN Stop: 01/18/19 08:59 Last Admin: 12/20/18 07:56 Dose: 2 sprays Documented by: [id number] Admin: 12/19/18 08:42 Dose: 2 sprays Documented by: [id number] Magnesium Sulfate/Dextrose (Magnesium Sulfate / D5w) 1 gm in 100 mls @ 100 mls/hr IV ONE ONE Stop: 12/18/18 22:09 Last Infusion: 12/18/18 23:40 Dose: 0 mls/hr Documented by: [id number] Admin: 12/18/18 22:15 Dose: 100 mls/hr Documented by: [id number] Methylprednisolone 40 mg/ (Syringe) 0.64 mls @ 1.5 mls/min IV Q8H SARAN Stop: 01/18/19 06:29 Last Admin: 12/20/18 05:37 Dose: 1.5 mls/min Documented by: [id number] Admin: 12/19/18 22:05 Dose: 1.5 mls/min Documented by: [id number] Admin: 12/19/18 14:09 Dose: 1.5 mls/min Documented by: [id number] Admin: 12/19/18 06:38 Dose: 1.5 mls/min Documented by: [id number] Ipratropium [place] (Atrovent 0.02% 0.5mg/2.5ml) 0.5 mg INH Q6R SARAN; Protocol Stop: 01/18/19 07:59 Last Admin: 12/20/18 07:00 Dose: 0.5 mg Documented by: [id number] Admin: 12/20/18 01:44 Dose: Not Given Documented by: [id number] Admin: 12/19/18 19:42 Dose: 0.5 mg Documented by: [id number] Admin: 12/19/18 13:36 Dose: 0.5 mg Documented by: [id number] Admin: 12/19/18 07:08 Dose: 0.5 mg Documented by: [id number] Ketorolac Tromethamine (Toradol) 30 mg IV NOW STA Stop: 12/18/18 22:54 Last Admin: 12/18/18 23:09 Dose: 30 mg Documented by: [id number] Levalbuterol HCl (Xopenex 1.25mg/0.5ml Neb) 1.25 mg INH Q6R [facility]; Protocol Stop: 01/18/19 07:59 Last Admin: 12/20/18 06:59 Dose: 1.25 mg Documented by: [id number] Admin: 12/20/18 01:44 Dose: Not Given Documented by: [id number] Admin: 12/19/18 19:42 Dose: 1.25 mg Documented by: [id number] Admin: 12/19/18 13:36 Dose: 1.25 mg Documented by: [id number] Admin: 12/19/18 07:09 Dose: 1.25 mg Documented by: [id number] Levothyroxine Sodium (Synthroid) 25 mcg PO DAILYBB [facility] Stop: 01/18/19 06:29 Last Admin: 12/20/18 05:37 Dose: 25 mcg Documented by: [id number] Admin: 12/19/18 06:12 Dose: 25 mcg Documented by: [id number] Methylprednisolone (Solumedrol) 125 mg IV NOW STA Stop: 12/18/18 21:11 Last Admin: 12/18/18 22:16 Dose: 125 mg Documented by: [id number] Miscellaneous (Order Awaiting Action) 1 ea N/A QS [facility] Stop: 01/18/19 07:59 Last Admin: 12/20/18 07:56 Dose: Not Given Documented by: [id number] Admin: 12/19/18 23:57 Dose: Not Given Documented by: [id number] Admin: 12/19/18 16:28 Dose: Not Given Documented by: [id number] Admin: 12/19/18 08:39 Dose: Not Given Documented by: [id number] Montelukast Sodium (Singulair) 10 mg PO QAM [facility] Stop: 01/18/19 08:59 Last Admin: 12/19/18 09:15 Dose: Not Given Documented by: [id number] Montelukast Sodium (Singulair) 10 mg PO HS [facility] Stop: 01/18/19 20:59 Last Admin: 12/19/18 20:16 Dose: 10 mg Documented by: [id number] Multivitamins (Multivitamin Tab) 1 tab PO QAM [facility] Stop: 01/18/19 08:59 Last Admin: 12/20/18 07:58 Dose: 1 tab Documented by: [id number] Admin: 12/19/18 08:40 Dose: 1 tab Documented by: [id number] Multivitamins/Minerals (Caltrate Plus) 1 tab PO BID [facility]AN Stop: 01/18/19 08:59 Last Admin: 12/20/18 07:57 Dose: 1 tab Documented by: [id number] Admin: 12/19/18 20:16 Dose: 1 tab Documented by: [id number] Admin: 12/19/18 08:41 Dose: 1 tab Documented by: [id number] [facility]oprazole S[facility] (Protonix) [facility] [place]: 01/18/19 08:59 Last Admin: 12/20/18 07:58 Dose: 40 mg Documented by: [id number] Admin: 12/19/18 08:42 Dose: 40 mg Documented by: [id number] Vitamin D (Vitamin D3) 1,000 units PO QAM [facility] Stop: 01/18/19 08:59 Last Admin: 12/20/18 07:58 Dose: 1,000 units Documented by: [id number] Admin: 12/19/18 08:40 Dose: 1,000 units Documented by: [id number] Medical Decision Making Differential Diagnosis Differential diagnosis includes: infections, reactive airway disease, pneumonia, pneumothorax, COPD, CHF, cardiac ischemia, pulmonary embolism, musculoskeletal, gastrointestinal, as well as others were entertained. Medical Records Attestation: I reviewed the patient's medical records. Home Medications Current Medication List: was personally reviewed by me Laboratory Data Attestation: I reviewed the patient's lab results. Result diagrams: 12/18/18 21:36 12/18/18 21:36 Lab Results 12/18/18 12/18/18 12/18/18 Range/Units 21:36 21:36 21:36 WBC 4.32 L (4.8-10.8) K/uL RBC 4.24 L (4.7-6.1) M/uL Hgb 11.0 L (14.0-18.0) g/dL Hct 35.0 L (42-52) % MCV 82.5 (80-100) fL MCH 25.9 (25-34) pg MCHC 31.4 L (32-36) g/dL RDW Std Deviation 49.6 H (36.4-46.3) fL RDW Coeff of Ligia 16.3 H (11.5-14.5) % Plt Count 193 (130-400) K/uL MPV 10.0 (7.4-10.4) fL Immature Gran % (Auto) 0.2 % Neut % (Auto) 75.3 % Lymph % (Auto) 14.8 % [place] % (Auto) 9.7 % Eos % (Auto) 0.0 % Baso % (Auto) 0.0 % Immature Gran # (Auto) 0.01 (0.00-0.02) K/uL Neut # (Auto) 3.25 (1.4-6.5) K/uL Lymph # (Auto) 0.64 L (1.2-3.4) K/uL [place] # (Auto) 0.42 (0.11-0.59) K/uL Eos # (Auto) 0.00 (0-0.5) K/uL Baso # (Auto) 0.00 (0-0.2) K/uL PT 44.9 H (9.0-12.0) Seconds INR 4.9 H (0.9-1.1) ABG pH (7.35-7.45) ABG pCO2 (35-46) mmHg ABG pO2 (80-95) mm/Hg ABG HCO3 (19-24) mmol/L ABG O2 Saturation (90-95) % ABG Base Excess (-9-1.8) mEq/L Keith Test (Pos) Oxygen Given Sodium 144 (136-145) mmol/L Potassium 3.8 (3.5-5.1) mmol/L Chloride 111 H (98-107) mmol/L Carbon Dioxide 26 (21-32) mmol/L Anion Gap 8.0 (3-11) BUN 16 (7-18) mg/dl Creatinine 0.66 (0.6-1.4) mg/dl Est Cr Clr Drug Dosing 135.2 ml/min Est GFR ( Amer) 136.3 Est GFR (Non-Af Amer) 117.6 BUN/Creatinine Ratio 23.8 H (10-20) Glucose 116 H (70-99) mg/dl Calcium 8.6 (8.5-10.1) mg/dl Total Bilirubin 0.2 (0.2-1) mg/dl AST 12 L (15-37) U/L ALT 25 (12-78) U/L Alkaline Phosphatase 83 (45-117) U/L Total Creatine Kinase 58 (39-308) U/L CK-MB (CK-2) 1.1 (0.5-3.6) ng/ml CK/CKMB % Calc 1.9 (0-3.0) Troponin I < 0.015 (0-0.045) ng/ml Total Protein 7.1 (6.4-8.2) gm/dl Albumin 3.6 (3.4-5.0) gm/dl Globulin 3.5 (2.5-4.0) gm/dl Albumin/Globulin Ratio 1.0 (0.9-2) Lipase 85 (73-393) U/L Influenza Type A (PCR) (Neg) Influenza Type B (PCR) (Neg) 12/18/18 12/18/18 Range/Units 21:37 23:26 WBC (4.8-10.8) K/uL RBC (4.7-6.1) M/uL Hgb (14.0-18.0) g/dL Hct (42-52) % MCV (80-100) fL MCH (25-34) pg MCHC (32-36) g/dL RDW Std Deviation (36.4-46.3) fL RDW Coeff of Ligia (11.5-14.5) % Plt Count (130-400) K/uL MPV (7.4-10.4) fL Immature Gran % (Auto) % Neut % (Auto) % Lymph % (Auto) % [place] % (Auto) % Eos % (Auto) % Baso % (Auto) % Immature Gran # (Auto) (0.00-0.02) K/uL Neut # (Auto) (1.4-6.5) K/uL Lymph # (Auto) (1.2-3.4) K/uL [place] # (Auto) (0.11-0.59) K/uL Eos # (Auto) (0-0.5) K/uL Baso # (Auto) (0-0.2) K/uL PT (9.0-12.0) Seconds INR (0.9-1.1) ABG pH 7.46 H (7.35-7.45) ABG pCO2 34 L (35-46) mmHg ABG pO2 84 (80-95) mm/Hg ABG HCO3 24 (19-24) mmol/L ABG O2 Saturation 96.9 H (90-95) % ABG Base Excess 0.2 (-9-1.8) mEq/L Keith Test Pos (Pos) Oxygen Given RA Sodium (136-145) mmol/L Potassium (3.5-5.1) mmol/L Chloride (98-107) mmol/L Carbon Dioxide (21-32) mmol/L Anion Gap (3-11) BUN (7-18) mg/dl Creatinine (0.6-1.4) mg/dl Est Cr Clr Drug Dosing ml/min Est GFR ( Amer) Est GFR (Non-Af Amer) BUN/Creatinine Ratio (10-20) Glucose (70-99) mg/dl Calcium (8.5-10.1) mg/dl Total Bilirubin (0.2-1) mg/dl AST (15-37) U/L ALT (12-78) U/L Alkaline Phosphatase (45-117) U/L Total Creatine Kinase (39-308) U/L CK-MB (CK-2) (0.5-3.6) ng/ml CK/CKMB % Calc (0-3.0) Troponin I (0-0.045) ng/ml Total Protein (6.4-8.2) gm/dl Albumin (3.4-5.0) gm/dl Globulin (2.5-4.0) gm/dl Albumin/Globulin Ratio (0.9-2) Lipase (73-393) U/L Influenza Type A (PCR) Neg for Influ A (Neg) Influenza Type B (PCR) Neg for Influ B (Neg) Imaging Data Radiologist's Impression: Radiology results as stated below per my review and the radiologist's interpretation: XR chest 1V portable CLINICAL HISTORY: 43 years-old Male presenting with Chest Pain. TECHNIQUE: Portable upright AP view of the chest was obtained. COMPARISON: 11/07/2018. FINDINGS: The patient is [place] rotated. Cardiac silhouette enlarged. Diffuse heterogeneity of lung parenchyma with prominence of pulmonary vasculature unchanged. Bibasal or opacities similar to prior exam. No new focal opacity. Underlying osteopenia suspected. Upper abdomen normal. IMPRESSION: 1. Apparent cardiomegaly may relate to patient rotation or the known pectus excavatum deformity. 2. Pulmonary vascular prominence suggest volume overload. 3. Bibasilar atelectasis or scarring similar to prior exam. No new superimposed infiltrate to suggest pneumonia. Electronically signed by: Gaudencio Roberts M.D. 12/18/2018 9:45 PM ECG Data Attestation: I personally reviewed and interpreted this ECG as follows: Indication: SOB/dyspnea Rate (beats per minute): 82 Rhythm: normal sinus Findings: no ST depression and no ST elevation Blood Pressure Blood Pressure Findings: Low blood pressure Blood Pressure Disposition: further management by hospitalist MDM Narrative This is a 43-year-old male who presents the emergency department complaining of shortness of breath. The patient is not normally on oxygen however is hypoxic here in the emergency department. He was given an hour-long breathing treatment and started on Solu-Medrol. He was given Toradol as well as azithromycin for his pain. Because the patient remains hypoxic I did discuss case with the hospitalist service who agreed to admit the patient. Patient was in agreement with the treatment plan. Impression & Plan Hypoxia Discharge Plan Visit Data *Final* Discharge Date/Time: 12/19/18 00:24 Chief Complaint: Shortness of Breath/Dyspnea Stated Complaint: BREATING POORLY, INHALER NOT WORKING ED Provider: Ignacio Tang Discharge Problem: Hypoxia Patient Disposition: Admitted As Inpatient Discharge Instructions Interventions: ED Discharge Assessment Last Done: 12/19/18 00:24 The scribe's documentation has been prepared under my direction and personally reviewed by me in its entirety. I confirm that the note above accurately reflects all work, treatment, procedures, and medical decision making performed by me.
--- NOTE | 2018-12-26 07:16 | Coding Query ---
BMI To promote full compliance with coding requirements relating to patient care, physician participation is requested in all cases of parts designer uncertainty. Please assist us with the question(s) below: Please place an X within the parenthesis (x). If other, please document: BMI 18.6 was documented in this record for this patient. If the BMI is significant, please check the box that provides a more specific associated diagnosis: ( ) Overweight/Obese ( ) Obesity ( ) Morbid obesity ( ) Obesity Hypoventilation Syndrome (OHS) ( ) Heathy weight, not significant (x ) Underweight/Thin ( ) Other, please specify Thank you Trupti SARMIENTO
--- NOTE | 2018-12-26 07:20 | Coding Query ---
CODING QUERY To promote full compliance with coding requirements relating to patient care, provider participation is requested in all cases of beer still runner compounder uncertainty. Please assist us with the question(s) below: Coding Question(s): 1. Pulmonary Embolism is documented in the record. Please clarify below, in your clinical opinion, regarding the Pulmonary Embolism. ( ) Acute Pulmonary Embolism was treated during this admission ( ) Chronic Pulmonary Embolism was treated during this admission ( x ) History of Pulmonary Embolism with treatment for the history of Pulmonary Embolism during this admission 2. Scoliosis is documented in the record. Please clarify below, in your clinical opinion, regarding the Scoliosis. ( ) Scoliosis - Congenital ( ) Scoliosis - Other: Please Specify ( x ) Scoliosis - Unspecified Physician's Response(s): Thank you Trupti Bolaños Principal Diagnosis: "that condition established after study, to be chiefly responsible for occasioning the admission of the patient to the hospital for care." Co-Existing Principal Diagnosis: "when two or more diagnoses equally meet the criteria for principal diagnosis as determined by the circumstances of admission, diagnostic work up, and/or therapy provided, and the Alphabetic Index, Tabular List, or another coding guideline does not provide sequencing direction, any one of the diagnoses may be sequenced first." "When the physician has documented what appears to be a current diagnosis in the body of the record, but has not included the diagnosis in the final diagnostic statement, the physician should be asked whether the diagnosis should be added." (Source Coding [facility] 2 QTR90. p3-4) GUILLERMINA
== END 2018-12-20 12:19 | disposition home or self-care (01) | DRG 202 ==
LOC: ED 20:37 → SUATTDRO 23:57 → 2S 23:57

== ENCOUNTER 2018-12-26 18:07 | Observation (INO) ==
[2018-12-26] MEDS ORDERED: ALBUT/IPRATROP 3MG/0.5MG NEB 3 ML VIAL NEB ONE (18:39)
[2018-12-26] MEDS ORDERED: DEXAMETHASONE SOD PHOSPHATE 10 MG in SYRINGE 0 ML IV STA (18:39)
[2018-12-26] MEDS ORDERED: SODIUM CHLORIDE 0.9% 500 ML IV SCH (18:45)
[2018-12-26 19:02] LABS: Hematocrit (blood only) 39.3 % (42-52); Hemoglobin 12.4 g/dL (14.0-18.0); Immature Granulocytes # (auto) 0.03 K/uL (0.00-0.02); Immature Granulocytes % (auto) 0.6 %; Lymphocytes # (auto) 0.34 K/uL (1.2-3.4); Lymphocytes % (auto) 7.3 %; Mean Corpuscular Hgb Conc 31.6 g/dL (32-36); Mean Corpuscular Volume 80.9 fL (80-100); Mean Platelet Volume 9.9 fL (7.4-10.4); Monocytes # (auto) 0.09 K/uL (0.11-0.59); Monocytes % (auto) 1.9 %; Neutrophils # (auto) 4.21 K/uL (1.4-6.5); Neutrophils % (auto) 90.2 %; Platelet Count 191 K/uL (130-400); RDW Coefficient of Variation 16.5 % (11.5-14.5); Red Blood Count 4.86 M/uL (4.7-6.1); White Blood Count 4.67 K/uL (4.8-10.8)
--- NOTE | 2018-12-26 19:05 | XRay Report ---
XR chest 1V portable CLINICAL HISTORY: 43 years-old Male presenting with Chest Pain. TECHNIQUE: Portable upright AP view of the chest was obtained. COMPARISON: 12/26/2018 at 11:54 AM. FINDINGS: Atherosclerosis of the aortic arch. Cardiac silhouette enlarged. Pulmonary vascular prominence and si gnificant heterogeneity of lung parenchyma. Relative radiolucency of the upper lobes. Lungs are hyper inflated. No focal opacity. No pleural effusion or pneumothorax. Underlying osteopenia. Scoliotic cur vature of the thoracic spine. Upper abdomen normal. IMPRESSION: 1. Cardiomegaly. No significant evidence of volume overload or pulmonary edema. 2. Hyperinflation may suggest emphysema. Alternatively, the appearance may be a result of exaggerate d thoracic kyphosis due to underlying compression fracture. 3. No focal infiltrate to suggest pneumonia. Electronically signed by: Gaudencio Roberts M.D. 12/26/2018 7:04 PM
[2018-12-26 19:08] LABS: INR 2.7 (0.9-1.1); Prothrombin Time 26.1 Seconds (9.0-12.0)
[2018-12-26 19:13] LABS: Oxygen Saturation VBG 87.9 %; pH VBG 7.49 (7.36-7.41)
[2018-12-26 19:25] LABS: Alanine Aminotransferase 34 U/L (12-78); Albumin Level 3.7 gm/dl (3.4-5.0); Aspartate Aminotransferase 11 U/L (15-37); BUN Creatinine Ratio 18.2 (10-20); Blood Urea Nitrogen 14 mg/dl (7-18); Calcium 9.3 mg/dl (8.5-10.1); Carbon Dioxide 27 mmol/L (21-32); Chloride 107 mmol/L (98-107); Creatinine Clr Calc Pharmacy 114.3 ml/min; Est GFR (African American) 127.9; Est GFR (Non-African American) 110.4; Glucose 171 mg/dl (70-99); Potassium 4.3 mmol/L (3.5-5.1); Sodium 141 mmol/L (136-145)
[2018-12-26 19:27] LABS: Bilirubin Direct 0.1 mg/dl (0-0.2); Phosphorus 2.8 mg/dl (2.5-4.9)
[2018-12-26 19:30] LABS: Alkaline Phosphatase 80 U/L (45-117); Bilirubin,Total 0.4 mg/dl (0.2-1); Globulin 3.7 gm/dl (2.5-4.0); Total Protein 7.4 gm/dl (6.4-8.2); Troponin I < 0.015 ng/ml (0-0.045)
[2018-12-26] MEDS ORDERED: LEVOFLOXACIN/D5W 750 MG/150 ML BAG IV STA (19:51)
[2018-12-26] MEDS ORDERED: DEXAMETHASONE **PF** INJ 10 MG/ML VIAL ONE (20:09)
--- NOTE | 2018-12-26 21:10 | History & Physical Report ---
Date of Service December 26, 2018 Assessment & Plan (1) Dyspnea: 43 y/o M Hx Pectus excavatum and scoliosis with restrictive lung disease, severe asthma/COPD, hypothyroidism, HTN, HLD, severe osteoporosis, GERD/esophagitis, DVT/PE - Coumadin, history of aspergillus pneumonia. Recent admission for SOB due to presumed exacerbation of asthma, discharged 12/24. The pt presents with progressive SOB which has persisted since DC and seems to occur as he tapers down his steroids. He describes a feeling of having to force air both in and out. He has not exhibited hypoxia and initial ABG demonstrates a slightly low CO2 arguing against an asthma exacerbation. Labs are otherwise unremarkable and INR is in the therapeutic range. A CXR is negative for acute findings. The pt visited his primary MD office prior to arriving at the hospital and was placed on 60mg Prednisone daily. 1) Dyspnea - I cannot definitively diagnose this as an exacerbation of obstructive disease. His issue seems to be persistent recently and he may just be experiencing the effects of his restrictive disease and gradual decline of his pulmonary function. He was treated for an asthma exacerbation with nebs and IV steroids and states that this made him feel better. We will therefore treat for exacerbation at present. We have consulted pulmonary. There is no current evidence of infection and he does not want another CT chest at present. We will hold off on antibiotics and additional imaging pending eval by pulmonary therefore. He did receive a dose of Levaquin in the ER regardless. 2) DVT/PE - Would consider a CT chest if there is no improvement although his INR is presently therapeutic. Cont Coumadin. 3) Hypothyroidism - cont Synthroid 4) HTN/HLD - cont Diltiazem, fish oil - presumably does not tolerate statins 5) GERD/esophagitis - cont PPi Full code - Coumadin prophylaxis Total time for this admit including review of extensive records, labs, meds, imaging - discussion with pt and ER attending - 45 min Present on Admission?: Yes History of Present Illness Primary Care Provider: Barrington Adorno MD 43 y/o M Hx Pectus excavatum and scoliosis with restrictive lung disease, severe asthma/COPD, hypothyroidism, HTN, HLD, severe osteoporosis, GERD/esophagitis, DVT/PE - Coumadin, history of aspergillus pneumonia. Recent admission for SOB due to presumed exacerbation of asthma, discharged 12/24. The pt presents with progressive SOB which has persisted since DC and seems to occur as he tapers down his steroids. He describes a feeling of having to force air both in and out. He has not exhibited hypoxia and initial ABG demonstrates a slightly low CO2 arguing against an asthma exacerbation. Labs are otherwise unremarkable and INR is in the therapeutic range. A CXR is negative for acute findings. The pt visited his primary MD office prior to arriving at the hospital and was placed on 60mg Prednisone daily. PMH:: 1) Early osteoporosis. This was diagnosed in his 20s. 2) Severe pectus excavatum 3) Severe asthma 4) Hypothyroidism 5) Scoliosis 6) Restrictive lung disease owing to both pectus excavatum and scoliosis 7) Bilateral cataracts, requiring surgery 8) History of aspergillus pneumonia 9) History of DVT/PE - on Coumadin 10) The pt is on a gluten-free diet for presumed celiac disease 11) HTN 12) HLD 13) GERD with esophagitis 14) Underwent extensive genetic testing at [facility] due to a constellation of early osteoporosis, cataracts, scoliosis and severe asthma. It was initially felt that he had Marfan's syndrome. This did not bar turner to be the case and as of now, there is no underlying genetic diagnosis to unify the above. Surgical: 1) BL cataracts 2) Hemorrhoidectomy 3) Removal of polyp from R ear 4) He was evaluated for pectus excavatum surgery twice and declined due to high risk Social: Does not smoke or drink Family: Uncle and grandfather with colon CA Father with spinal degenerative disease Mother is alive and well There are no hereditary illnesses in the family Allergies Allergy/AdvReac Type Severity Reaction Status Date / Time gluten Allergy Unknown STOMACH Verified 12/26/18 19:00 ISSUES Cipro AdvReac Intermediate issue with Verified 08/19/17 14:34 legs ciprofloxacin AdvReac Intermediate issue with Verified 12/26/18 19:00 legs oxycodone AdvReac Mild GI upset Verified 12/26/18 19:00 Home Medications Home Medications Medication Instructions Recorded Confirmed Type ascorbic acid (vitamin C) [Vitamin 2,000 mg PO QAM 09/05/18 12/26/18 History C] azelastine 1 spray INTRANASAL QAM 09/05/18 12/26/18 History calcium carbonate-vitamin D3 1 tab PO BID 09/05/18 12/26/18 History [Calcium 600 + D(3)] cholecalciferol (vitamin D3) 1,000 unit PO QAM 09/05/18 12/26/18 History [Vitamin D3] diltiazem HCl 60 mg PO HS 09/05/18 12/26/18 History levalbuterol tartrate 3 inh INHALATION BID 09/05/18 12/26/18 History levothyroxine 25 mcg PO QAM 09/05/18 12/26/18 History meclizine 25 mg PO TID PRN 09/05/18 12/26/18 History montelukast [Singulair] 10 mg PO QAM 09/05/18 12/26/18 History multivitamin 1 tab PO QAM 09/05/18 12/26/18 History omega [id number]-fish oil [Fish Oil] 1,200 mg PO QAM 09/05/18 12/26/18 History warfarin 10 mg PO 5XWK 09/05/18 12/26/18 History fexofenadine [Dilma Allergy] 180 mg PO QAM 09/18/18 12/26/18 History omeprazole 20 mg PO QAM 09/18/18 12/26/18 History Prolia See Rx Instructions .ROUTE .COMPLEX 10/10/18 12/26/18 History lorazepam [Ativan] 0.5 mg PO TID PRN 10/10/18 12/26/18 History cetirizine [Zyrtec] 10 mg PO HS 12/18/18 12/26/18 History fluticasone propionate 2 spray INTRANASAL HS 12/18/18 12/26/18 History levalbuterol HCl 1.25 mg INHALATION Q4H PRN 12/18/18 12/26/18 History prednisone 40 mg PO QAM 12/26/18 12/26/18 History warfarin 2.5 mg PO 2XWK 12/26/18 12/26/18 History warfarin 10 mg PO 2XWK 12/26/18 12/26/18 History Past Med/Surg History Medical History Avascular necrosis of hip Osteoporosis GERD (gastroesophageal reflux disease) Asthma Bronchiectasis FOLLOWS WITH PULMONARY Dextroscoliosis Hearing deficit HEARING AIDS Hx of deep venous thrombosis 2016 Hx pulmonary embolism 2016 Hypothyroidism Pectus excavatum Surgical History History of placement of ear tubes (Acute) left ear History of ear surgery X4 Hx of hemorrhoidectomy Family History Other Diabetes Heart disease Social History Preferred Language: Surinamese Communication Ability: Effective Beliefs That Will Affect Care: None marital status: Current Living Situation: Family Feels Safe at Home: Yes Smoking Status: Never smoker Second Hand Exposure: No Hx Alcohol Use: No Hx Substance Use: No Review of Systems Review of Systems: Gen: Denies fevers, night sweats, rigors, fatigue, malaise, weight loss/gain ENT: Denies congestion, throat pain, hearing loss Eyes: Denies acute visual changes CV: Denies CP, palpitations Pulmonary: SOB - as above describes that he is forcing air in and out GI: Denies N/V, diarrhea, constipation Neuro: Denies acute or unilateral weakness, acute gait impairment, headache or acute visual changes Musculoskeletal: Denies joint pain, inflammation Endocrine: Denies polydipsia, polyuria Skin: Denies acute rashes or ulcers Physical Exam Physical Exam: General: Pale, thin, young male, AAO x 3, no distress - completes sentences - mild tachypnea noted ENT: No erythema or exudates, no thrush Eyes: MARY, EOMI Head and neck: Normocephalic, atraumatic, No JVD, neck is supple Chest/heart: Nontender, S1,2, RRR, pronounced pectus deformity - no murmurs, no gallops Lungs: There may be some crackles at the R base although this only occurs if he can take a deep breath which he has difficulty doing. Air movement is diminished. There is no wheezing. Abdomen: Nontender, nondistended, BS+ Neuro: AAO x 3, speech is clear, no unilateral weakness or loss of sensation, coordination intact Musculoskeletal: No joint inflammation, muscle tenderness, FROM - + scoliosis, kyphosis, pectus deformity Skin: No acute rashes or ulcers Extremities: No clubbing, cyanosis, edema Results & Data Vital Signs (Past 12 Hours) Vital Signs Temp Pulse Pulse Resp BP Pulse Ox 12/26/18 20:20 101 H 19 99 12/26/18 20:10 100 H 18 118/76 100 12/26/18 20:01 92 H 19 100 12/26/18 19:51 79 26 H 100 12/26/18 19:40 80 20 100 12/26/18 19:30 82 21 100 12/26/18 19:21 80 22 100 12/26/18 19:10 85 18 100 12/26/18 19:02 85 24 96 12/26/18 19:00 105 H 21 118/76 94 12/26/18 18:51 86 23 96 12/26/18 18:40 101 H 13 93 12/26/18 18:34 108 H 16 103/67 93 12/26/18 18:21 98.4 F 200 H 20 168/97 H 98 12/26/18 18:07 97 Diagnostic Findings CXR: 1. Cardiomegaly. No significant evidence of volume overload or pulmonary edema. 2. Hyperinflation may suggest emphysema. Alternatively, the appearance may be a result of exaggerated thoracic kyphosis due to underlying compression fracture. 3. No focal infiltrate to suggest pneumonia.
[2018-12-26] MEDS ORDERED: ONDANSETRON INJ 2 MG/ML 2 ML VIAL IV PRN (23:43)
[2018-12-26] MEDS ORDERED: LEVALBUTEROL HCL 1.25 MG/3 ML NEB NEB PRN (23:43)
[2018-12-26] MEDS ORDERED: MECLIZINE HCL 25 MG TAB PO PRN (23:43)
[2018-12-26] MEDS ORDERED: MAGNESIUM HYDROXIDE SUSP 30 ML UDC PO PRN (23:43)
[2018-12-26] MEDS ORDERED: LORazepam 0.5 MG TAB PO PRN (23:43)
[2018-12-26] MEDS ORDERED: ACETAMINOPHEN 325 MG TAB PO PRN (23:43)
[2018-12-26] MEDS ORDERED: ALUMINUM/MAGNESIUM SUSP 30 ML UDC PO PRN (23:43)
[2018-12-26] MEDS ORDERED: POLYETHYLENE (MIRALAX) 17 GM PACK PO PRN (23:43)
[2018-12-27] MEDS: methylPREDNISolone 60 MG in SYRINGE 0 ML IV SCH ×4 (02:11→20:10)
--- NOTE | 2018-12-27 02:15 | Emergency Department Note ---
Entered by Radha Mullins acting as a scribe for Abhinav Rabago MD History of Present Illness General Chief complaint: Shortness of Breath/Dyspnea Stated complaint: DIFFICULTY BREATHING Time Seen by Provider: 12/26/18 18:32 Source: patient and family History of Present Illness Onset (ago): day(s) (several) Location: chest Severity: similar to prior episodes Pain Consistency: + other (worsening) Maximum Pain Intensity: 0 Quality: + other (shortness of breath) Relieved By: + other (nebulizers) Exacerbated By: + other (talking) Treatments prior to arrival: other (steroid; nebulizer) The patient is a 43 year old male who presents to the Emergency Room with complaints of worsening shortness of breath that began several days prior to arrival, per the patient's family at bedside. The patient's family member at bedside, the patient was discharged from the hospital several days ago after an asthma exacerbation and his breathing has been worsening since this time. The patient's family member at bedside reports that the patient has had reflux over the past several days. Per the patient's family member at bedside, the patient has a history of asthma and states that the patient has respiratory defects throughout his entire respiratory system. The patient's family member at bedside states that the patient was seen by his PCP today for his symptoms and was given a steroid injection and an antibiotics prescription that the patient has not started yet. The patient's family member states that talking exacerbates the patient's symptoms and nebulizers relieve his symptoms. Per the patient's family member, the patient received nebulizer treatments at home today. The patient denies having oxygen at home. 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 Home Medications Home Medications Medication Instructions Recorded Confirmed Type ascorbic acid (vitamin C) [Vitamin 2,000 mg PO QAM 09/05/18 12/26/18 History C] azelastine 1 spray INTRANASAL QAM 09/05/18 12/26/18 History calcium carbonate-vitamin D3 1 tab PO BID 09/05/18 12/26/18 History [Calcium 600 + D(3)] cholecalciferol (vitamin D3) 1,000 unit PO QAM 09/05/18 12/26/18 History [Vitamin D3] diltiazem HCl 60 mg PO HS 09/05/18 12/26/18 History levalbuterol tartrate 3 inh INHALATION BID 09/05/18 12/26/18 History levothyroxine 25 mcg PO QAM 09/05/18 12/26/18 History meclizine 25 mg PO TID PRN 09/05/18 12/26/18 History montelukast [Singulair] 10 mg PO QAM 09/05/18 12/26/18 History multivitamin 1 tab PO QAM 09/05/18 12/26/18 History omega [id number] oil [Fish Oil] 1,200 mg PO QAM 09/05/18 12/26/18 History warfarin 10 mg PO 5XWK 09/05/18 12/26/18 History fexofenadine [Dilma Allergy] 180 mg PO QAM 09/18/18 12/26/18 History omeprazole 20 mg PO QAM 09/18/18 12/26/18 History Prolia See Rx Instructions .ROUTE .COMPLEX 10/10/18 12/26/18 History lorazepam [Ativan] 0.5 mg PO TID PRN 10/10/18 12/26/18 History cetirizine [Zyrtec] 10 mg PO HS 12/18/18 12/26/18 History fluticasone propionate 2 spray INTRANASAL HS 12/18/18 12/26/18 History levalbuterol HCl 1.25 mg INHALATION Q4H PRN 12/18/18 12/26/18 History prednisone 40 mg PO QAM 12/26/18 12/26/18 History warfarin 2.5 mg PO 2XWK 12/26/18 12/26/18 History warfarin 10 mg PO 2XWK 12/26/18 12/26/18 History Allergies Allergy/AdvReac Type Severity Reaction Status Date / Time gluten Allergy Unknown STOMACH Verified 12/26/18 19:00 ISSUES Cipro AdvReac Intermediate issue with Verified 08/19/17 14:34 legs ciprofloxacin AdvReac Intermediate issue with Verified 12/26/18 19:00 legs oxycodone AdvReac Mild GI upset Verified 12/26/18 19:00 Past Med/Surg History Medical History Avascular necrosis of hip Osteoporosis GERD (gastroesophageal reflux disease) Asthma Bronchiectasis FOLLOWS WITH PULMONARY Dextroscoliosis Hearing deficit HEARING AIDS Hx of deep venous thrombosis 2016 Hx pulmonary embolism 2016 Hypothyroidism Pectus excavatum Surgical History History of placement of ear tubes (Acute) left ear History of ear surgery X4 Hx of hemorrhoidectomy Family History Other Diabetes Heart disease Social History Preferred Language: Bruneian Communication Ability: Effective Steam Train [employer] Required: No Beliefs That Will Affect Care: None marital status: Current Living Situation: Family Feels Safe at Home: Yes Safety Concerns: Feels Safe At This Time Smoking Status: Never smoker Second Hand Exposure: No Hx Alcohol Use: No Hx Substance Use: No Review of Systems See HPI for pertinent positives & negatives. and A total of 10 systems reviewed and were otherwise negative Physical Exam Vital Signs Vital Signs - 24 hr 12/26/18 18:07 12/26/18 18:21 12/26/18 18:34 Temperature 36.9 C Temperature Source Oral Sepsis Recent Fever Within 48 Hours No Sepsis Action Taken by Nursing No Action Required Pulse Rate 200 H 108 H Pulse Rate [Right Finger] Pulse Rate from SpO2 Sensor 107 H Pulse Rhythm Regular Pulse Strength Normal Respiratory Rate 20 16 Respiratory Effort / Characteristics Non-Labored Non-Labored Spontaneous Respiratory Depth Shallow Normal Respiratory Pattern Regular Regular Blood Pressure 168/97 H 103/67 Blood Pressure Mean 120 79 Blood Pressure Position Sitting Pulse Oximetry 97 98 93 Oxygen Delivery Method Room Air Room Air 12/26/18 18:40 12/26/18 18:51 12/26/18 19:00 Temperature Temperature Source Sepsis Recent Fever Within 48 Hours Sepsis Action Taken by Nursing Pulse Rate 101 H 86 105 H Pulse Rate [Right Finger] Pulse Rate from SpO2 Sensor 98 H 91 H 101 H Pulse Rhythm Pulse Strength Respiratory Rate 13 23 21 Respiratory Effort / Characteristics Respiratory Depth Respiratory Pattern Blood Pressure 118/76 Blood Pressure Mean 90 Blood Pressure Position Pulse Oximetry 93 96 94 Oxygen Delivery Method 12/26/18 19:02 12/26/18 19:10 12/26/18 19:21 Temperature Temperature Source Sepsis Recent Fever Within 48 Hours Sepsis Action Taken by Nursing Pulse Rate 85 80 Pulse Rate [Right Finger] 85 Pulse Rate from SpO2 Sensor 89 80 Pulse Rhythm Pulse Strength Respiratory Rate 24 18 22 Respiratory Effort / Characteristics Spontaneous Short of Breath Respiratory Depth Respiratory Pattern Blood Pressure Blood Pressure Mean Blood Pressure Position Pulse Oximetry 96 100 100 Oxygen Delivery Method Room Air 12/26/18 19:30 12/26/18 19:40 12/26/18 19:51 Temperature Temperature Source Sepsis Recent Fever Within 48 Hours Sepsis Action Taken by Nursing Pulse Rate 82 80 79 Pulse Rate [Right Finger] Pulse Rate from SpO2 Sensor 79 83 79 Pulse Rhythm Pulse Strength Respiratory Rate 21 20 26 H Respiratory Effort / Characteristics Respiratory Depth Respiratory Pattern Blood Pressure Blood Pressure Mean Blood Pressure Position Pulse Oximetry 100 100 100 Oxygen Delivery Method 12/26/18 20:01 12/26/18 20:10 12/26/18 20:20 Temperature Temperature Source Sepsis Recent Fever Within 48 Hours Sepsis Action Taken by Nursing Pulse Rate 92 H 100 H 101 H Pulse Rate [Right Finger] Pulse Rate from SpO2 Sensor 97 H 100 H 97 H Pulse Rhythm Pulse Strength Respiratory Rate 19 18 19 Respiratory Effort / Characteristics Respiratory Depth Respiratory Pattern Blood Pressure 118/76 Blood Pressure Mean 90 Blood Pressure Position Pulse Oximetry 100 100 99 Oxygen Delivery Method 12/26/18 21:00 12/26/18 21:01 Temperature Temperature Source Sepsis Recent Fever Within 48 Hours Sepsis Action Taken by Nursing Pulse Rate 111 H 107 H Pulse Rate [Right Finger] Pulse Rate from SpO2 Sensor 101 H 105 H Pulse Rhythm Pulse Strength Respiratory Rate 16 16 Respiratory Effort / Characteristics Respiratory Depth Respiratory Pattern Blood Pressure 130/73 Blood Pressure Mean 92 Blood Pressure Position Pulse Oximetry 97 98 Oxygen Delivery Method GENERAL: Awake, alert, Uncomfortable. in no distress. HENT: Normocephalic, atraumatic. Oropharynx with dry mucous membranes and otherwise unremarkable. EYES: Normal conjunctiva. Sclera non-icteric. NECK: Supple. No nuchal rigidity. FROM. No JVD. RESPIRATORY: Diminished breath sounds at the bases. Mildly dyspneic and tachypneic. CARDIAC: Regular rate, normal rhythm. Extremities warm and well perfused. Pulses equal. ABDOMEN: Soft, non-distended. No tenderness to palpation. No rebound or guarding. No masses. RECTAL: Deferred. MUSCULOSKELETAL: Chest examination reveals no tenderness. Severe pectus excavatum. The back is symmetrical on inspection without obvious abnormality. There is no CVA tenderness to palpation. No joint edema. LOWER EXTREMITIES: Calves are equal size bilaterally and non-tender. No edema. No discoloration. NEURO: Normal sensorium. No sensory or motor deficits noted. SKIN: No rash or jaundice noted. Course 1832: The patient was evaluated in room A4B, and a complete history and physical examination were performed. 1936: Upon reevaluation, the patient states that he is not feeling better. 1999: [facility] for further evaluation. 2024: I discussed the case with Dr. LauPulmonology who states that it is reasonable for the patient to be further evaluated given his history of asthma and restrictive lung disease due to pectus excavatum. He states that he is happy to evaluate the patient while he is an inpatient. Consultations Consultation #1: [facility] evaluation. Time: 20:00 Consultation #2: I discussed the case with Dr. LauPulmonamanda who states that it is reasonable for the patient to be further evaluated given his history of asthma and restrictive lung disease due to pectus excavatum. He states that he is happy to evaluate the patient while he is an inpatient. Time: 20:25 Administered Medications Discontinued Medications Albuterol (Duoneb) 12 ml NEB ONE ONE Stop: 12/26/18 18:40 Last Admin: 12/26/18 19:02 Dose: 12 ml Documented by: [id number] Dexamethasone Sodium Phosphate (Decadron Pf) Confirm Administered Dose 10 mg .ROUTE .STK-MED ONE Stop: 12/26/18 20:10 Last Admin: 12/26/18 20:13 Dose: 10 mg Documented by: [id number] Sodium Chloride (Nss) 500 mls @ 999 mls/hr IV .Q31M SARAN Stop: 12/26/18 19:15 Last Infusion: 12/26/18 21:59 Dose: 0 mls/hr Documented by: [id number] Admin: 12/26/18 20:13 Dose: 999 mls/hr Documented by: [id number] Dexamethasone Sodium Phosphate (10 mg/ Syringe) 2.5 mls @ 1 mls/min IV NOW STA Stop: 12/26/18 18:41 Last Admin: 12/26/18 20:13 Dose: Not Given Documented by: [id number] Levofloxacin/Dextrose (Levaquin/D5w) 750 mg in 150 mls @ 100 mls/hr IV NOW STA Stop: 12/26/18 21:20 Last Infusion: 12/26/18 21:59 Dose: 0 mls/hr Documented by: [id number] Admin: 12/26/18 20:13 Dose: 100 mls/hr Documented by: [id number] Medical Decision Making Differential Diagnosis Differential diagnosis: Etiologies such as infections, reactive airway disease, pneumonia, pneumothorax, COPD, CHF, cardiac ischemia, pulmonary embolism, musculoskeletal, gastrointestinal, as well as others were entertained. Medical Records Attestation: I reviewed the patient's medical records. Home Medications Current Medication List: was personally reviewed by me Laboratory Data Attestation: I reviewed the patient's lab results. Result diagrams: 12/26/18 18:47 12/26/18 18:47 Lab Results 12/26/18 12/26/18 12/26/18 Range/Units 18:47 18:47 18:47 WBC 4.67 L (4.8-10.8) K/uL RBC 4.86 (4.7-6.1) M/uL Hgb 12.4 L (14.0-18.0) g/dL Hct 39.3 L (42-52) % MCV 80.9 (80-100) fL MCH 25.5 (25-34) pg MCHC 31.6 L (32-36) g/dL RDW Std Deviation 49.0 H (36.4-46.3) fL RDW Coeff of Ligia 16.5 H (11.5-14.5) % Plt Count 191 (130-400) K/uL MPV 9.9 (7.4-10.4) fL Immature Gran % (Auto) 0.6 % Neut % (Auto) 90.2 % Lymph % (Auto) 7.3 % [place] % (Auto) 1.9 % Eos % (Auto) 0.0 % Baso % (Auto) 0.0 % Immature Gran # (Auto) 0.03 H (0.00-0.02) K/uL Neut # (Auto) 4.21 (1.4-6.5) K/uL Lymph # (Auto) 0.34 L (1.2-3.4) K/uL [place] # (Auto) 0.09 L (0.11-0.59) K/uL Eos # (Auto) 0.00 (0-0.5) K/uL Baso # (Auto) 0.00 (0-0.2) K/uL PT 26.1 H (9.0-12.0) Seconds INR 2.7 H (0.9-1.1) VBG pH (7.36-7.41) VBG pCO2 (38-50) mmHg VBG pO2 mmHg VBG HCO3 mmol/L VBG O2 Saturation % VBG Base Excess mEq/L Barometric Pressure mm/Hg Sodium 141 (136-145) mmol/L Potassium 4.3 (3.5-5.1) mmol/L Chloride 107 (98-107) mmol/L Carbon Dioxide 27 (21-32) mmol/L Anion Gap 7.0 (3-11) BUN 14 (7-18) mg/dl Creatinine 0.77 (0.6-1.4) mg/dl Est Cr Clr Drug Dosing 114.3 ml/min Est GFR ( Amer) 127.9 Est GFR (Non-Af Amer) 110.4 BUN/Creatinine Ratio 18.2 (10-20) Glucose 171 H (70-99) mg/dl Calcium 9.3 (8.5-10.1) mg/dl Phosphorus (2.5-4.9) mg/dl Magnesium (1.8-2.4) mg/dl Total Bilirubin 0.4 (0.2-1) mg/dl Direct Bilirubin (0-0.2) mg/dl AST 11 L (15-37) U/L ALT 34 (12-78) U/L Alkaline Phosphatase 80 (45-117) U/L Troponin I < 0.015 (0-0.045) ng/ml NT-Pro-B Natriuret Pep (0-450) pg/ml Total Protein 7.4 (6.4-8.2) gm/dl Albumin 3.7 (3.4-5.0) gm/dl Globulin 3.7 (2.5-4.0) gm/dl Albumin/Globulin Ratio 1.0 (0.9-2) Lipase 108 (73-393) U/L 12/26/18 12/26/18 Range/Units 18:47 18:47 WBC (4.8-10.8) K/uL RBC (4.7-6.1) M/uL Hgb (14.0-18.0) g/dL Hct (42-52) % MCV (80-100) fL MCH (25-34) pg MCHC (32-36) g/dL RDW Std Deviation (36.4-46.3) fL RDW Coeff of Ligia (11.5-14.5) % Plt Count (130-400) K/uL MPV (7.4-10.4) fL Immature Gran % (Auto) % Neut % (Auto) % Lymph % (Auto) % [place] % (Auto) % Eos % (Auto) % Baso % (Auto) % Immature Gran # (Auto) (0.00-0.02) K/uL Neut # (Auto) (1.4-6.5) K/uL Lymph # (Auto) (1.2-3.4) K/uL [place] # (Auto) (0.11-0.59) K/uL Eos # (Auto) (0-0.5) K/uL Baso # (Auto) (0-0.2) K/uL PT (9.0-12.0) Seconds INR (0.9-1.1) VBG pH 7.49 H (7.36-7.41) VBG pCO2 33 L (38-50) mmHg VBG pO2 51 mmHg VBG HCO3 25 mmol/L VBG O2 Saturation 87.9 % VBG Base Excess 2.0 mEq/L Barometric Pressure 733.7 mm/Hg Sodium (136-145) mmol/L Potassium (3.5-5.1) mmol/L Chloride (98-107) mmol/L Carbon Dioxide (21-32) mmol/L Anion Gap (3-11) BUN (7-18) mg/dl Creatinine (0.6-1.4) mg/dl Est Cr Clr Drug Dosing ml/min Est GFR ( Amer) Est GFR (Non-Af Amer) BUN/Creatinine Ratio (10-20) Glucose (70-99) mg/dl Calcium (8.5-10.1) mg/dl Phosphorus 2.8 (2.5-4.9) mg/dl Magnesium 2.0 (1.8-2.4) mg/dl Total Bilirubin (0.2-1) mg/dl Direct Bilirubin 0.1 (0-0.2) mg/dl AST (15-37) U/L ALT (12-78) U/L Alkaline Phosphatase (45-117) U/L Troponin I (0-0.045) ng/ml NT-Pro-B Natriuret Pep 63 (0-450) pg/ml Total Protein (6.4-8.2) gm/dl Albumin (3.4-5.0) gm/dl Globulin (2.5-4.0) gm/dl Albumin/Globulin Ratio (0.9-2) Lipase (73-393) U/L Imaging Data Radiologist's Impression: Radiology results as stated below per my review and the radiologist's interpretation: XR chest 1V portable CLINICAL HISTORY: 43 years-old Male presenting with Chest Pain. TECHNIQUE: Portable upright AP view of the chest was obtained. COMPARISON: 12/26/2018 at 11:54 AM. FINDINGS: Atherosclerosis of the aortic arch. Cardiac silhouette enlarged. Pulmonary vascular prominence and significant heterogeneity of lung parenchyma. Relative radiolucency of the upper lobes. Lungs are hyperinflated. No focal opacity. No pleural effusion or pneumothorax. Underlying osteopenia. Scoliotic curvature of the thoracic spine. Upper abdomen normal. IMPRESSION: 1. Cardiomegaly. No significant evidence of volume overload or pulmonary edema. 2. Hyperinflation may suggest emphysema. Alternatively, the appearance may be a result of exaggerated thoracic kyphosis due to underlying compression fracture. 3. No focal infiltrate to suggest pneumonia. Electronically signed by: Gaudencio Roberts M.D. 12/26/2018 7:04 PM ECG Data Attestation: I personally reviewed and interpreted this ECG as follows: Indication: SOB/dyspnea Rate (beats per minute): 105 Rhythm: sinus tachycardia Findings: + other (normal axis; nonspecific T wave abnormality; no overt acute ischemia) Comparison ECG Date: from (12/18/2018) Change: no significant change Blood Pressure Blood Pressure Findings: Elevated blood pressure Blood Pressure Disposition: further management by hospitalist NAEL Chapa The patient is a pleasant 43 y/o gentleman with a pmhx of bronchiectasis, asthma, restrictive lung disease 2/2 severe pectus excavatum, DVT/PE on coumadin who presents to the emergency department with acutely worsening SOB today in 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 Patient reports he was given steroid at his clinic visit and an RX for an ABX but he did not get to fill it yet. On arrival the patient is mildly dyspneic but in NAD, AF, RR mid-20s and otherwise VSS. He has normal O2 saturation on RA. EKG unremarkable without evidence of acute ischemia. CXR without any focal infiltrates. WBC 4.6 and H/H 12.4/39.3 similar to prior values. Platelets wnl. INR therapeutic at 2.7. VBG without CO2 retention with CO2 33 reflecting component of patient's hyperventilation. Chemistry without acidosis. LFTs and electrolytes unremarkable. Troponin negative. Patient denies any improvement after dexamethasone and continuous duoneb. Thus ordered for vapotherm (high flow) given patient reports he cannot tolerate bipap mask. Will treatment empirically with levaquin given patient's worsening sx and severe lung disease. Case d/w Dr. Morrissey, pulmonology on-call who agrees with plan for admission given the patient's multiple pulmonary issues and worsening sx despite recent admission. He will be available for consultation by inpatient team. Case d/w Dr. Chicas, [facility] hospitalist, who will evaluated the patient for admission. Impression & Plan Asthma exacerbation Critical Care Time I have personally spent 35 minutes of critical care time in the direct management of this patient. This includes bedside care, interpretation of diagnostic studies, and testing, discussion with consultants, patient, and family members, and other required patient management activities. This 35 minutes is in excess of all separately billable procedures. Critical Care Time: Yes Total Critical Care Time: 35 Discharge Plan Visit Data *Final* Discharge Date/Time: 12/26/18 23:04 Chief Complaint: Shortness of Breath/Dyspnea Stated Complaint: DIFFICULTY BREATHING ED Provider: Abhinav Rabago Discharge Problem: Asthma exacerbation Patient Disposition: Admitted As Inpatient Discharge Instructions Interventions: ED Discharge Assessment Last Done: 12/26/18 23:04 Discharge Problem: Asthma exacerbation Qualifiers: Asthma severity: unspecified severity Asthma persistence: unspecified Qualified Code(s): J45.901 - Unspecified asthma with (acute) exacerbation The scribe's documentation has been prepared under my direction and personally reviewed by me in its entirety. I confirm that the note above accurately reflects all work, treatment, procedures, and medical decision making performed by me.
[2018-12-27] MEDS: LEVOTHYROXINE SODIUM 25 MCG TABLET PO SCH (05:53)
[2018-12-27] MEDS: ALBUT/IPRATROP 3MG/0.5MG NEB 3 ML VIAL NEB SCH ×4 (07:07→19:49)
[2018-12-27] MEDS: OMEGA-3 (PURIFIED FISH OIL) 1 GM CAP PO SCH (07:38)
[2018-12-27] MEDS: PANTOprazole 40 MG TAB PO SCH (07:38)
[2018-12-27] MEDS: FEXOFENADINE HCL 180 MG TAB PO SCH (07:38)
[2018-12-27] MEDS: CALCIUM 600MG + VIT D 400 IU TAB PO SCH ×2 (07:38→20:10)
[2018-12-27] MEDS: MULTIVITAMIN TAB PO SCH (07:39)
[2018-12-27] MEDS: CHOLECALCIFEROL 1,000 UNITS TAB PO SCH (07:39)
[2018-12-27 07:55] LABS: INR 2.7 (0.9-1.1); Prothrombin Time 25.9 Seconds (9.0-12.0)
[2018-12-27] MEDS ORDERED: WARFARIN SOD 10 MG TAB PO SCH (16:00)
--- NOTE | 2018-12-27 16:51 | Consultation Report ---
DATE OF CONSULTATION: 12/27/2018 PULMONARY MEDICINE CONSULTATION REASON FOR CONSULTATION: Severe restrictive lung disease/asthma/COPD. HISTORY OF PRESENT ILLNESS: A 43-year-old white male, well known to me, with a history of severe congenital pectus excavatum and scoliosis with resultant restrictive ventilatory defect and history of asthma/COPD as well as allergic rhinitis. The patient was admitted yesterday from the office where he had seen Tori Billings/physician senior court office assistant earlier in the day. He has history of hypothyroidism, hypertension, severe osteoporosis, GERD, and a history of recurrent DVT with pulmonary emboli, on chronic Coumadin therapy. The patient is seen by Dr. Kaylah Landrum from allergy and immunology and was last seen by him on 12/15/2018. The patient has a history of allergic rhinitis with sensitivity to mold and pollens. Although his IgE level in the serum was low, he felt that he may still have sensitivities to these aeroallergens. He has been placed on fluticasone nasal spray along with azelastine in therapeutic dosage. Immunotherapy was discussed. He felt he might be a candidate for Xolair although his total IgE level is under the threshold, and it is unclear what driving force the aeroallergens possess in exacerbating his underlying asthma. He had been on Anoro Ellipta inhaler along with Symbicort and was given samples of Trelegy to simplify his program, and Spiriva was discontinued. Over the past 2 weeks, he has become more symptomatic with dyspnea, chest tightness, and although had been hospitalized recently was readmitted with worsening symptoms and seen in the ER and placed on the hospitalist service. His had felt that he had hit a downhill spiral, but when questioned further, except for the past several weeks, the patient has been stable. He did undergo a total hip replacement with Dr. Perry. He said uneventfully, but apparently, he required transfusion during the hospital stay. He was bridged with Lovenox and Coumadin with the latter held for 5 days prior. Immunodeficiency workup in the past showed mildly low humoral antibody levels and was given a booster Prevnar with an excellent response to increased antibodies 12/14 serotypes. His CD4 count has been low, but the ratio to CD8 was normal. He has never had a significant eosinophil count elevation to our knowledge. Currently, he feels better than he did yesterday although he got very little sleep last night because of some disturbance with his roommate. He states that, when he is eating, he has trouble getting enough air in and out and has to stop because of dyspnea. 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 His voice is down to a whisper because of breathlessness according to his . He is currently on prednisone. He has had problems with mastoiditis and required myringotomy tubes involving the left ear and has a deviated septum. He is followed by Dr. Cali. He has a strong family history of diabetes and heart disease. He is a nonsmoker. Chest x-ray on admission showed cardiomegaly with hyperinflation. Thoracic kyphosis is noted. No acute infiltrate. He has also been followed by Dr. Sosa from cardiology for atypical chest pain, not felt to be cardiac in nature. At age 25 was evaluated for possible surgical correction of his pectus excavatum at [facility] as well as at [facility]. He does have a history of right ventricular dilatation with mildly reduced systolic function, felt to be secondary to previous pulmonary emboli and chest wall abnormality. There may be a degree of bronchiectasis. Last echo was done in January of 2018. On 07/26/2018, no acute aortic or pulmonary thromboembolic disease was seen. Mild bilateral bronchiectasis was suggested. He does use a nebulizer or rescue inhaler as needed, specifically with Xopenex solution, and is on reflux treatment. PFTs done in November 2018 showed a very poor quality study. The forced vital capacity was 76% of predicted, but the FEV1 was 39% of predicted with a ratio of 41%. No significant response to bronchodilator was seen. Dobutamine stress test done in August 2018 showed no ischemic changes at 85% maximum predicted heart rate. Bronchoscopy with Dr. Weller in August 2017 was reviewed. He noted the right upper lobe intrabronchial submucosal white plaques did not appear to be consistent with tracheal ring distribution. He noted that in the bronchus intermedius and right middle lobe. He was unsure about what they represented. They were also consistent in the left tracheobronchial tree. Mucous plugging was noted. For details of past medical history, medications, family and social history, I refer you to current and past record. PHYSICAL EXAMINATION: GENERAL: Thin white male appearing in no distress at rest. VITAL SIGNS: Blood pressure 112/71, pulse 91 and regular, respiratory rate 16, temperature 36.7, O2 sat 97% on room air. SKIN: Without lesion. HEENT: Atraumatic, normocephalic, PERRLA, EOMI. Conjunctivae pale. Sclerae nonicteric. Fundi poorly visualized. NECK: Neck veins are not distended at 45 degrees. No obvious adenopathy in the supra or infraclavicular areas. LUNGS: Distant to P and A. CARDIAC: Sinus tachycardia. No murmurs or gallops. PMI nondisplaced. ABDOMEN: No evidence for hepatosplenomegaly. EXTREMITIES: No pedal edema, clubbing, or cyanosis. NEUROLOGIC: Intact. LABORATORY DATA: Cultures in the past of the bronchial washings have been unremarkable. Current lab work: White count 4600, H and H 12.4 and 39.3. Serum was negative for influenza A and B PCR. ABG on admission: pH 7.49, pCO2 of 33, pO2 of 51. PT/INR 2.7. The patient apparently had avascular necrosis of the right hip in addition to degenerative arthritis. OVERALL ASSESSMENT: A 43-year-old with severe kyphoscoliosis/pectus excavatum and apparent obstructive ventilatory defect either secondary to asthma and/or chronic bronchiectasis or combination of both. In addition, I cannot explain the endobronchial changes or abnormalities commented on by Dr. Weller 1 year ago. There may be degree of atelectasis, but that is not clear. The patient has had evidence for right ventricular dilatation with reduced systolic function within the past year, and I think this can contribute to his symptoms. His CTA on 11/08/2018 was reviewed, and there was a limited evaluation of the pulmonary arterial tree. Mild dependent subsegmental bibasilar atelectasis was noted. PLAN: Review current medication. Consider outpatient bronchoscopic evaluation with bridging of Lovenox and Coumadin and repeat echocardiogram.
[2018-12-27] MEDS ORDERED: dilTIAZem HCl 60 MG TAB PO SCH (21:00)
[2018-12-27] MEDS ORDERED: CETIRIZINE HCL 10 MG TABLET PO SCH (21:00)
[2018-12-27] MEDS ORDERED: MONTELUKAST SODIUM 10 MG TABLET PO SCH (21:00)
[2018-12-27] MEDS ORDERED: FLUTICASONE PROPIONATE NA SPR 16 GM BTL SCH (21:00)
--- NOTE | 2018-12-27 23:01 | Hospitalist Progress Note ---
Date of Service December 27, 2018 Assessment & Plan (1) Dyspnea: 43 y/o M Hx Pectus excavatum and scoliosis with restrictive lung disease, severe asthma/COPD, hypothyroidism, HTN, HLD, severe osteoporosis, GERD/esophagitis, DVT/PE - Coumadin, history of aspergillus pneumonia. Recent admission for SOB due to presumed exacerbation of asthma, discharged 12/24. The pt presents with progressive SOB which has persisted since DC and seems to occur as he tapers down his steroids. He describes a feeling of having to force air both in and out. He has not exhibited hypoxia and initial ABG demonstrates a slightly low CO2 arguing against an asthma exacerbation. Labs are otherwise unremarkable and INR is in the therapeutic range. A CXR is negative for acute findings. The pt visited his primary MD office prior to arriving at the hospital and was placed on 60mg Prednisone daily. 1) Dyspnea - I cannot definitively diagnose this as an exacerbation of obstructive disease. His issue seems to be persistent recently and he may just be experiencing the effects of his restrictive disease and gradual decline of his pulmonary function. He was treated for an asthma exacerbation with nebs and IV steroids and states that this made him feel better. We will therefore treat for exacerbation at present. We have consulted pulmonary. There is no current evidence of infection and he does not want another CT chest at present. We will hold off on antibiotics and additional imaging pending eval by pulmonary therefore. He did receive a dose of Levaquin in the ER regardless. On 12/27: Patient reports feeling mildly better. Exam appears to be improved. D/W pulmonary will schedule bronchoscopy as an outpatient. Will continue steroids and solumedrol. 2) DVT/PE - doubt new P/E, Cont Coumadin. 3) Hypothyroidism - cont Synthroid 4) HTN/HLD - cont Diltiazem, fish oil - presumably does not tolerate statins 5) GERD/esophagitis - cont PPi Full code - Coumadin prophylaxis Spent 35 minutes in management of patient. This includes discussion with specialist, outpatient chart review, discussion with patient. Subjective 43 yo male reports feeling better today. Still reports having some shortness of breath, but he is close to his baseline. He reports that he has been ambulating the halls well. He states he had a discussion with the tree warden and they may proceed with a bronchoscopy as an outpatient. Patient denies any fever, chills, nausea, vomiting. Review of Systems Review of Systems: All systems reviewed & are unremarkable except as noted in HPI & below Physical Exam Physical Exam: General: Pale, thin, young male, AAO x 3, no distress - completes sentences ENT: No erythema or exudates, no thrush Eyes: MARY, EOMI Head and neck: Normocephalic, atraumatic, No JVD, neck is supple Chest/heart: Nontender, S1,2, RRR, pronounced pectus deformity - no murmurs, no gallops Lungs: Clear Abdomen: Nontender, nondistended, BS+ Neuro: AAO x 3, speech is clear, no unilateral weakness or loss of sensation, coordination intact Musculoskeletal: No joint inflammation, muscle tenderness, FROM - + scoliosis, kyphosis, pectus deformity Skin: No acute rashes or ulcers Extremities: No clubbing, cyanosis, edema Results & Data Vital Signs (Past 12 Hours) Vital Signs Temp Pulse Resp BP BP Pulse Ox 12/27/18 19:49 78 16 7 L 12/27/18 19:00 36.8 C 100 H 21 120/69 97 12/27/18 15:33 102 H 16 97 12/27/18 15:00 36.8 C 77 18 95/65 L 95 12/27/18 11:22 36.7 C 99 H 16 112/71 97 12/27/18 11:01 68 16 98
[2018-12-28] MEDS: methylPREDNISolone 60 MG in SYRINGE 0 ML IV SCH ×2 (02:04→08:55)
[2018-12-28] MEDS: LEVOTHYROXINE SODIUM 25 MCG TABLET PO SCH (06:02)
[2018-12-28] MEDS: ALBUT/IPRATROP 3MG/0.5MG NEB 3 ML VIAL NEB SCH ×2 (06:51→10:46)
[2018-12-28] MEDS: FEXOFENADINE HCL 180 MG TAB PO SCH (09:00)
[2018-12-28] MEDS: CALCIUM 600MG + VIT D 400 IU TAB PO SCH (09:00)
[2018-12-28] MEDS: MULTIVITAMIN TAB PO SCH (09:01)
[2018-12-28] MEDS: CHOLECALCIFEROL 1,000 UNITS TAB PO SCH (09:02)
[2018-12-28] MEDS: PANTOprazole 40 MG TAB PO SCH (09:02)
[2018-12-28] MEDS: OMEGA-3 (PURIFIED FISH OIL) 1 GM CAP PO SCH (12:08)
--- NOTE | 2018-12-28 14:06 | Progress Note ---
DATE: 12/28/2018 PULMONARY MEDICINE PROGRESS NOTE Chart reviewed, the patient examined. SUBJECTIVE: The patient was feeling better today after a good night's rest. He denies chest heaviness or pain or even a sensation of dyspnea. He has been officially discharged. I told him that the echocardiogram ordered yesterday did not really suggest any sign of right ventricle dilatation and pulmonary arterial hypertension and suspect there was a transient phenomenon following his multiple pulmonary emboli several years ago. I did review Dr. Weller's bronchoscopy note and I cannot explain the "findings of whitish plaques" along with tracheobronchial tree with brushings and biopsies and cultures being nondiagnostic. At this point in time, I do not believe the patient needs to undergo bronchoscopic intervention unless by weaning him off his prednisone. He becomes markedly symptomatic again, in which case, I would then schedule him for outpatient bronchoscopy, bridging with Lovenox/Coumadin.
[2018-12-28] MEDS ORDERED: WARFARIN SOD 10 MG TAB PO SCH (16:00)
[2018-12-28] MEDS ORDERED: WARFARIN SOD 2.5 MG TAB PO SCH (16:00)
--- NOTE | 2019-01-04 11:24 | Discharge Summary ---
Date of Service December 28, 2018 Admission HPI Per Admitting Provider 43 y/o M Hx Pectus excavatum and scoliosis with restrictive lung disease, severe asthma/COPD, hypothyroidism, HTN, HLD, severe osteoporosis, GERD/esophagitis, DVT/PE - Coumadin, history of aspergillus pneumonia. Recent admission for SOB due to presumed exacerbation of asthma, discharged 12/24. The pt presents with progressive SOB which has persisted since DC and seems to occur as he tapers down his steroids. He describes a feeling of having to force air both in and out. He has not exhibited hypoxia and initial ABG demonstrates a slightly low CO2 arguing against an asthma exacerbation. Labs are otherwise unremarkable and INR is in the therapeutic range. A CXR is negative for acute findings. The pt visited his primary MD office prior to arriving at the hospital and was placed on 60mg Prednisone daily. PMH:: 1) Early osteoporosis. This was diagnosed in his 20s. 2) Severe pectus excavatum 3) Severe asthma 4) Hypothyroidism 5) Scoliosis 6) Restrictive lung disease owing to both pectus excavatum and scoliosis 7) Bilateral cataracts, requiring surgery 8) History of aspergillus pneumonia 9) History of DVT/PE - on Coumadin 10) The pt is on a gluten-free diet for presumed celiac disease 11) HTN 12) HLD 13) GERD with esophagitis 14) Underwent extensive genetic testing at [facility] due to a constellation of early osteoporosis, cataracts, scoliosis and severe asthma. It was initially felt that he had Marfan's syndrome. 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 Surgical: 1) BL cataracts 2) Hemorrhoidectomy 3) Removal of polyp from R ear 4) He was evaluated for pectus excavatum surgery twice and declined due to high risk Social: Does not smoke or drink Family: Uncle and grandfather with colon CA Father with spinal degenerative disease Mother is alive and well There are no hereditary illnesses in the family Principal Diagnosis COPD exacerbation Discharge Exam General: Pale, thin, young male, AAO x 3, no distress - completes sentences ENT: No erythema or exudates, no thrush Eyes: MARY, EOMI Head and neck: Normocephalic, atraumatic, No JVD, neck is supple Chest/heart: Nontender, S1,2, RRR, pronounced pectus deformity - no murmurs, no gallops Lungs: Clear Abdomen: Nontender, nondistended, BS+ Neuro: AAO x 3, speech is clear, no unilateral weakness or loss of sensation, coordination intact Musculoskeletal: No joint inflammation, muscle tenderness, FROM - + scoliosis, kyphosis, pectus deformity Skin: No acute rashes or ulcers Extremities: No clubbing, cyanosis, edema Discharge Data Allergies Allergy/AdvReac Type Severity Reaction Status Date / Time gluten Allergy Unknown STOMACH Verified 12/26/18 19:00 ISSUES Cipro AdvReac Intermediate issue with Verified 08/19/17 14:34 legs ciprofloxacin AdvReac Intermediate issue with Verified 12/26/18 19:00 legs oxycodone AdvReac Mild GI upset Verified 12/26/18 19:00 Consultations 12/26/18 19:51 ED Decision to Admit Stat 12/26/18 23:43 Consult Pulmonology Routine Hospital Course (1) Dyspnea: 43 y/o M Hx Pectus excavatum and scoliosis with restrictive lung disease, severe asthma/COPD, hypothyroidism, HTN, HLD, severe osteoporosis, GERD/esophagitis, DVT/PE - Coumadin, history of aspergillus pneumonia. Recent admission for SOB due to presumed exacerbation of asthma, discharged 12/24. The pt presents with progressive SOB which has persisted since DC and seems to occur as he tapers down his steroids. He describes a feeling of having to force air both in and out. He has not exhibited hypoxia and initial ABG demonstrates a slightly low CO2 arguing against an asthma exacerbation. Labs are otherwise unremarkable and INR is in the therapeutic range. A CXR is negative for acute findings. The pt visited his primary MD office prior to arriving at the hospital and was placed on 60mg Prednisone daily. 1) Dyspnea - I cannot definitively diagnose this as an exacerbation of obstructive disease. His issue seems to be persistent recently and he may just be experiencing the effects of his restrictive disease and gradual decline of his pulmonary function. He was treated for an asthma exacerbation with nebs and IV steroids and states that this made him feel better. We will therefore treat for exacerbation at present. We have consulted pulmonary. There is no current evidence of infection and he does not want another CT chest at present. We will hold off on antibiotics and additional imaging pending eval by pulmonary therefore. He did receive a dose of Levaquin in the ER regardless. On 12/27: Patient reports feeling mildly better. Exam appears to be improved. D/W pulmonary will schedule bronchoscopy as an outpatient. Will continue steroids and solumedrol. 12/28 Patient improved. Ok to discharge patient. Input from pulmonary. . I told him that the echocardiogram ordered yesterday did not really suggest any sign of right ventricle dilatation and pulmonary arterial hypertension and suspect there was a transient phenomenon following his multiple pulmonary emboli several years ago. I did review Dr. Weller's bronchoscopy note and I cannot explain the "findings of whitish plaques" along with tracheobronchial tree with brushings and biopsies and cultures being nondiagnostic. At this point in time, I do not believe the patient needs to undergo bronchoscopic intervention unless by weaning him off his prednisone. He becomes markedly symptomatic again, in which case, I would then schedule him for outpatient bronchoscopy, bridging with Lovenox/Coumadin. 2) DVT/PE - doubt new P/E, Cont Coumadin. 3) Hypothyroidism - cont Synthroid 4) HTN/HLD - cont Diltiazem, fish oil - presumably does not tolerate statins 5) GERD/esophagitis - cont PPi Full code - Coumadin prophylaxis Spent 35 minutes in management of patient. This includes discussion with specialist, outpatient chart review, discussion with patient. Total Time Total Time Spent Total Time Spent (In Minutes): 32 Total Time Includes: Examination of the Patient, Discharge Planning and Medication Reconciliation Discharge Plan Discharge Items Patient Disposition: Home - Self-Care Reason For Visit: ASTHMA EXACERBATION Discharge Diagnosis: Asthma exacerbation Discharge Goals: Decrease discomfort Activity: Resume your previous activity Non-emergency contact: Primary Care Provider Call non-emergency contact if: you have any medication questions Follow-up/Referrals: Ammon Roger PA-C [Family Provider] - 01/02/19 8:30 am (Please, follow up at [facility]'s Pulmonology Office with Santiago Roger PA-C on TuesdayJanuary 02 at 8:30 am. *The office is located in [address] of [facility]. If you need to change this appointment, call the office at [phone].) Jefe Adorno MD [Primary Care Provider] - 01/03/19 11:00 am (Please, follow up at Dr. Adorno's office with his assitant, Renee Rey PA-C, on TuesdayJanuary 03 at 11:00 am. *If you need to change this appointment, call their office at [phone].) Diet: Regular and Gluten Free Addtl Provider Instructions: You were seen for an asthma exacerbation. Will have you follow up with Dr. Morrissey as an outpatient. Prescriptions: New prednisone 10 mg tablet 10 mg PO UD Qty: 32 RF: 0 Continued multivitamin Tablet 1 tab PO QAM RF: 0 ascorbic acid (vitamin C) [Vitamin C] 1,000 mg Tablet 2,000 mg PO QAM RF: 0 warfarin 10 mg tablet 10 mg PO 5XWK RF: 0 levothyroxine 25 mcg Tablet 25 mcg PO QAM RF: 0 meclizine 25 mg tablet 25 mg PO TID PRN (Reason: Dizziness) RF: 0 montelukast [Singulair] 10 mg Tablet 10 mg PO QAM RF: 0 azelastine 137 mcg (0.1 %) aerosol,spray 1 spray Intranasal QAM RF: 0 diltiazem HCl 60 mg Tablet 60 mg PO HS RF: 0 levalbuterol tartrate 45 mcg/actuation Hfa Aerosol Inhaler 3 inh INHALATION BID RF: 0 cholecalciferol (vitamin D3) [Vitamin D3] 1,000 unit Tablet 1,000 unit PO QAM RF: 0 calcium carbonate-vitamin D3 [Calcium 600 + D(3)] 600 mg(1,500mg) -400 unit Tablet 1 tab PO BID RF: 0 omega 9-vhn-zrh-fish oil [Fish Oil] 1,000 mg (120 mg-180 mg) Capsule 1,200 mg PO QAM RF: 0 fexofenadine [Dilma Allergy] 180 mg Tablet 180 mg PO QAM RF: 0 omeprazole 20 mg Tablet,Delayed Release (Dr/Ec) 20 mg PO QAM RF: 0 Prolia 60 mg/mL Syringe See Rx Instructions .ROUTE .COMPLEX RF: 0 lorazepam [Ativan] 0.5 mg Tablet 0.5 mg PO TID PRN (Reason: Anxiety) RF: 0 fluticasone propionate 50 mcg/actuation spray,suspension 2 spray intranasal HS RF: 0 cetirizine [Zyrtec] 10 mg Tablet 10 mg PO HS RF: 0 levalbuterol HCl 1.25 mg/3 mL solution for nebulization 1.25 mg inhalation Q4H PRN (Reason: Shortness Of Breath Or Wheezing) RF: 0 warfarin 10 mg tablet 10 mg PO 2XWK RF: 0 warfarin 2.5 mg tablet 2.5 mg PO 2XWK RF: 0 Discontinued prednisone 10 mg tablet 40 mg PO QAM RF: 0 Stand-Alone Forms: [facility] Discharge Orders: Discharge Order (Routine); Ordered 12/28/18 Ordered By: Carlitos Matamoros Admission Data Admit Date/Time: 12/26/18 21:50 Attending Provider: Carlitos Matamoros Admit Provider: Austin Chicas Primary Care Provider: Jefe Adorno Other Providers: Austin Chicas ; Cesar Morrissey Service: Telemetry Medical Other Interventions: Discharge Summary Assessment (RN) Last Done: 12/28/18 11:58 DC Date/Time DO NOT enter until pt leaves facility: 12/28/18 13:09
== END 2018-12-28 13:09 | disposition home or self-care (01) ==
LOC: 2N 18:07 → ED 18:07 → SUATTDRO 21:50 → 2N 23:04

== ENCOUNTER 2019-01-13 18:15 | Observation (INO) ==
[2019-01-13] MEDS ORDERED: LORazepam 1 MG/2 ML VIAL IV STA (18:54)
[2019-01-13] MEDS ORDERED: LEVALBUTEROL HCL 1.25 MG/3 ML NEB NEB STA (18:54)
[2019-01-13] MEDS ORDERED: methylPREDNISolone 125 MG/2 ML VIAL IV STA (18:54)
--- NOTE | 2019-01-13 19:11 | XRay Report ---
XR chest 1V portable CLINICAL HISTORY: 43 years-old Male presenting with Dyspnea. TECHNIQUE: Portable upright AP view of the chest was obtained. COMPARISON: 01/07/2019. FINDINGS: Atherosclerosis of the aortic arch. Cardiac silhouette enlarged. Coarsened lung markings. Heterogeneo us radiolucency of the upper lobes. Mild hyperinflation suggested allowing for exaggerated kyphosis. No focal opacity. No large effusion or pneumothorax. Osteopenia. Upper abdomen normal. IMPRESSION: 1. Findings suggest emphysema. No focal infiltrate to suggest pneumonia. 2. Cardiomegaly. Electronically signed by: Gaudencio Roberts M.D. 01/13/2019 7:10 PM
[2019-01-13 19:40] LABS: Basophils # (auto) 0.01 K/uL (0-0.2); Basophils % (auto) 0.2 %; Eosinophils # (auto) 0.01 K/uL (0-0.5); Eosinophils % (auto) 0.2 %; Hematocrit (blood only) 37.3 % (42-52); Hemoglobin 11.7 g/dL (14.0-18.0); Immature Granulocytes # (auto) 0.15 K/uL (0.00-0.02); Immature Granulocytes % (auto) 2.6 %; Lymphocytes # (auto) 0.77 K/uL (1.2-3.4); Lymphocytes % (auto) 13.6 %; Mean Corpuscular Hgb Conc 31.4 g/dL (32-36); Mean Corpuscular Volume 81.3 fL (80-100); Mean Platelet Volume 9.6 fL (7.4-10.4); Monocytes # (auto) 0.39 K/uL (0.11-0.59); Monocytes % (auto) 6.9 %; Neutrophils # (auto) 4.35 K/uL (1.4-6.5); Neutrophils % (auto) 76.5 %; Nucleated RBC # (auto) 0.02 K/uL (0-0); Nucleated RBC % (auto) 0.3 %; Platelet Count 188 K/uL (130-400); RDW Coefficient of Variation 18.6 % (11.5-14.5); Red Blood Count 4.59 M/uL (4.7-6.1); White Blood Count 5.68 K/uL (4.8-10.8)
[2019-01-13 19:52] LABS: Partial Thromboplastin Ratio 0.8; Partial Thromboplastin Time 22.3 Seconds (21.0-31.0); Prothrombin Time 10.5 Seconds (9.0-12.0)
[2019-01-13 19:59] LABS: Alanine Aminotransferase 44 U/L (12-78); Albumin Level 3.4 gm/dl (3.4-5.0); Aspartate Aminotransferase 13 U/L (15-37); BUN Creatinine Ratio 16.7 (10-20); Blood Urea Nitrogen 14 mg/dl (7-18); Calcium 9.1 mg/dl (8.5-10.1); Carbon Dioxide 29 mmol/L (21-32); Chloride 109 mmol/L (98-107); Creatinine Clr Calc Pharmacy 103.6 ml/min; Est GFR (African American) 122.2; Est GFR (Non-African American) 105.5; Glucose 120 mg/dl (70-99); Magnesium 2.1 mg/dl (1.8-2.4); Potassium 4.3 mmol/L (3.5-5.1); Sodium 144 mmol/L (136-145)
[2019-01-13 20:03] LABS: Albumin Globulin Ratio 1.1 (0.9-2); Alkaline Phosphatase 62 U/L (45-117); Bilirubin,Total 0.5 mg/dl (0.2-1); Total Protein 6.4 gm/dl (6.4-8.2); Troponin I < 0.015 ng/ml (0-0.045)
[2019-01-13] MEDS ORDERED: MECLIZINE HCL 25 MG TAB PO PRN (22:34)
--- NOTE | 2019-01-13 23:08 | History & Physical Report ---
Date of Service January 13, 2019 Assessment & Plan (1) Dyspnea: 43yo M admitted due to continued dyspnea, tachypnea, for bronchoscopy on 01/15/19. Dyspnea/pectus excavatum/kyphoscoliosis/anxiety/asthma/bronchiectasis -Thought to be related to anatomic deficits +/- asthma,chronic bronchiectasis -Inhalers continued -Continue home prednisone taper: currently on 50 mg x 1 week -For bronch on 01/[address] Morrissey -Prn ativan for agitation Esophageal spasm -Pt takes diltiazem 60 qhs H/O recurrent DVTs/PEs -on chronic coumadin tx -Has completed bridge of lovenox for bronch -Will hold further chemical DVT prophy until after bronch, restart coumadin Hypothyroid -Cont home meds Low back pain -On difene gel Osteoporosis -On prolia q 6mo. Code: full Dispo: med/surg, awaiting bronch DVTP: SCDs, restart coumadin after bronch. Completed lovenox bridge (2) Esophageal spasm: (3) Hypothyroidism (acquired): (4) Anxiety: (5) DVT (deep venous thrombosis): (6) Pulmonary embolism: (7) Pectus excavatum: (8) Asthma: (9) Low back pain: (10) Osteoporosis: History of Present Illness Chief Complaint: Shortness of breath Primary Care Provider: Barrington Adorno MD Patient is a 43 yo M with a complicated medical history including severe congenital pectus excavatum and scoliosis/kyphosis who presents with shortness of breath, increased work of breathing. Per discussion, patient had been seen in the pulmonology clinic on 01/12/19 where it was questioned whether he should be admitted that day due to increased work of breathing and shortness of breath. He is well known to Dr. Morrissey and since Dr. Morrissey was not in the hospital on 01/12/19, it was decided to try and wait over the weekend and he would have scheduled bronchoscopy on 01/15/19. Per , he had been instructed to cut back on prn ativan, and in so doing he is having increased shortness of breath, work of breathing. He is currently completing a prednisone taper, on 50mg daily. He has completed his lovenox bridge for procedure on 01/15. On arrival to ER, patient was hoarse, but not hypoxic with some increased WOB and tachypnea. He was given a xopenex neb, solumedrol burst, and IV ativan and reports minimal improvement. Lab workup was negative. CXR shows no acute changes from baseline with emphysema and skeletal abnormalities. Patient is resting comfortably in no distress on my assessment. 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 Allergies Allergy/AdvReac Type Severity Reaction Status Date / Time gluten Allergy Unknown STOMACH Verified 01/13/19 19:20 ISSUES Cipro AdvReac Intermediate issue with Verified 08/19/17 14:34 legs ciprofloxacin AdvReac Intermediate issue with Verified 01/13/19 19:20 legs oxycodone AdvReac Mild GI upset Verified 01/13/19 19:20 Home Medications Home Medications Medication Instructions Recorded Confirmed Type ascorbic acid (vitamin C) [Vitamin 2,000 mg PO QAM 09/05/18 01/13/19 History C] azelastine 1 spray INTRANASAL QAM 09/05/18 01/13/19 History calcium carbonate-vitamin D3 1 tab PO BID 09/05/18 01/13/19 History [Calcium 600 + D(3)] cholecalciferol (vitamin D3) 1,000 unit PO QAM 09/05/18 01/13/19 History [Vitamin D3] diltiazem HCl 60 mg PO HS 09/05/18 01/13/19 History levalbuterol tartrate 3 inh INHALATION BID 09/05/18 01/13/19 History meclizine 25 mg PO TID PRN 09/05/18 01/13/19 History montelukast [Singulair] 10 mg PO QAM 09/05/18 01/13/19 History multivitamin 1 tab PO QAM 09/05/18 01/13/19 History fexofenadine [Dilma Allergy] 180 mg PO QAM 09/18/18 01/13/19 History omeprazole 20 mg PO QAM 09/18/18 01/13/19 History Prolia 60 mg SUBCUT Q6M 10/10/18 01/13/19 History lorazepam [Ativan] 0.5 mg PO TID PRN 10/10/18 01/13/19 History cetirizine [Zyrtec] 10 mg PO HS 12/18/18 01/13/19 History fluticasone propionate 2 spray INTRANASAL HS 12/18/18 01/13/19 History levalbuterol HCl 1.25 mg INHALATION Q4H PRN 12/18/18 01/13/19 History levothyroxine 25 mcg tablet 25 mcg PO QAM #90 tab 01/09/19 01/13/19 Rx [id number] 1 inh INHALATION DAILY 01/10/19 01/13/19 History [Trelegy Ellipta] diclofenac sodium 4 g TOPICAL BID 01/13/19 01/13/19 History enoxaparin 80 mg SUBCUT DAILY 01/13/19 01/13/19 History Past Med/Surg History Medical History H/O lymphopenia (Resolved) History of undescended testicle (Resolved) History of wrist fracture (Resolved) Vitamin D deficiency (Acute) Venous insufficiency (Acute) Steroid-induced avascular necrosis of hip (Acute) Mineral deficiency (Acute) Malaria (Acute) Low back pain (Acute) Hypogammaglobulinemia (Acute) Herpes zoster (Acute) Hearing loss (Acute) Dysfunction of both eustachian tubes (Acute) Degenerative joint disease (DJD) of hip (Acute) Chronic rhinitis (Acute) Chronic reflux esophagitis (Acute) Chronic deep vein thrombosis of popliteal vein (Acute) Back pain (Acute) Allergy (Acute) Avascular necrosis of hip Osteoporosis GERD (gastroesophageal reflux disease) Asthma Bronchiectasis FOLLOWS WITH PULMONARY Dextroscoliosis Hearing deficit HEARING AIDS Hx of deep venous thrombosis 2016 Hx pulmonary embolism 2016 Hypothyroidism Pectus excavatum Surgical History History of placement of ear tubes (Acute) left ear History of ear surgery X4 Hx of hemorrhoidectomy Family History Other Diabetes Heart disease Social History Preferred Language: Welsh Communication Ability: Effective Cash Teller Required: No Beliefs That Will Affect Care: None marital status: Current Living Situation: Spouse and Family Feels Safe at Home: Yes Safety Concerns: Feels Safe At This Time Smoking Status: Never smoker Second Hand Exposure: No Hx Alcohol Use: No Hx Substance Use: No Review of Systems Review of Systems: All systems reviewed & are unremarkable except as noted in HPI & below Constitutional: + fatigue and + weakness; no fever and no chills Eyes: + corrective lenses Ear, Nose, Mouth, Throat: + hearing loss Respiratory: + cough, + dyspnea, + dyspnea on exertion and + pain on inspiration Cardiovascular: + dyspnea and + dyspnea on exertion; no chest pain and no radiating jaw, neck or arm pain Gastrointestinal: no abdominal pain Neurologic: + generalized weakness Physical Exam Constitutional: well developed, well nourished and + frail appearing; no acute distress Eyes: PERRL, conjunctivae normal, anicteric sclerae ENMT: external ear and nose normal, oropharynx normal Respiratory: normal respiratory effort, lungs clear to auscultation no labored breathing, no cough and not tachypneic Auscultation: + diminished lung sounds Cardiovascular: RRR, no murmur, no edema Gastrointestinal (Abdomen): normal bowel sounds, soft, nontender, no hepatosplenomegaly Musculoskeletal: no cyanosis or clubbing, extremities motor strength 5/5 Skin: no rashes, warm and dry Neurologic: PERRL, EOMI, accommodation nl, no face palsy, no dysarthria Psychiatric: Orientation: alert and oriented x 3 Affect: + blunted affect Results & Data Vital Signs (Past 12 Hours) Vital Signs Temp Pulse Pulse Resp BP Pulse Ox 01/13/19 22:00 94 H 25 H 122/78 97 01/13/19 21:50 94 H 24 98 01/13/19 21:40 103 H 24 97 01/13/19 21:30 84 22 116/76 96 01/13/19 21:20 99 H 21 97 01/13/19 21:10 95 H 21 95 01/13/19 21:00 100 H 26 H 116/72 95 01/13/19 20:50 99 H 24 95 01/13/19 20:40 104 H 28 H 95 01/13/19 20:30 103 H 25 H 107/72 94 01/13/19 20:00 99 H 28 H 115/71 96 01/13/19 19:50 109 H 29 H 95 01/13/19 19:40 111 H 33 H 96 01/13/19 19:36 89 38 H 110/66 98 01/13/19 19:30 110 H 36 H 96 01/13/19 19:23 96 H 16 95 01/13/19 19:20 103 H 30 H 95 01/13/19 19:10 108 H 31 H 01/13/19 19:06 94 01/13/19 19:00 108 H 29 H 97 01/13/19 18:50 116 H 29 H 94 01/13/19 18:44 101 H 29 H 97 01/13/19 18:25 36.8 C 107 H 22 127/74 98 Laboratory Results 01/13/19 01/13/19 01/13/19 Range/Units 19:26 19:26 19:26 WBC 5.68 (4.8-10.8) K/uL RBC 4.59 L (4.7-6.1) M/uL Hgb 11.7 L (14.0-18.0) g/dL Hct 37.3 L (42-52) % MCV 81.3 (80-100) fL MCH 25.5 (25-34) pg MCHC 31.4 L (32-36) g/dL RDW Std Deviation 54.0 H (36.4-46.3) fL RDW Coeff of Ligia 18.6 H (11.5-14.5) % Plt Count 188 (130-400) K/uL MPV 9.6 (7.4-10.4) fL Immature Gran % (Auto) 2.6 % Neut % (Auto) 76.5 % Lymph % (Auto) 13.6 % [place] % (Auto) 6.9 % Eos % (Auto) 0.2 % Baso % (Auto) 0.2 % Immature Gran # (Auto) 0.15 H (0.00-0.02) K/uL Neut # (Auto) 4.35 (1.4-6.5) K/uL Lymph # (Auto) 0.77 L (1.2-3.4) K/uL [place] # (Auto) 0.39 (0.11-0.59) K/uL Eos # (Auto) 0.01 (0-0.5) K/uL Baso # (Auto) 0.01 (0-0.2) K/uL Absolute Nucleated RBC 0.02 H (0-0) K/uL Nucleated RBC % (auto) 0.3 % PT 10.5 (9.0-12.0) Seconds INR 1.0 (0.9-1.1) APTT 22.3 (21.0-31.0) Seconds PTT Ratio 0.8 Sodium 144 (136-145) mmol/L Potassium 4.3 (3.5-5.1) mmol/L Chloride 109 H (98-107) mmol/L Carbon Dioxide 29 (21-32) mmol/L Anion Gap 7.0 (3-11) BUN 14 (7-18) mg/dl Creatinine 0.86 (0.6-1.4) mg/dl Est Cr Clr Drug Dosing 103.6 ml/min Est GFR ( Amer) 122.2 Est GFR (Non-Af Amer) 105.5 BUN/Creatinine Ratio 16.7 (10-20) Glucose 120 H (70-99) mg/dl Calcium 9.1 (8.5-10.1) mg/dl Magnesium 2.1 (1.8-2.4) mg/dl Total Bilirubin 0.5 (0.2-1) mg/dl AST 13 L (15-37) U/L ALT 44 (12-78) U/L Alkaline Phosphatase 62 (45-117) U/L Troponin I < 0.015 (0-0.045) ng/ml Total Protein 6.4 (6.4-8.2) gm/dl Albumin 3.4 (3.4-5.0) gm/dl Globulin 3.0 (2.5-4.0) gm/dl Albumin/Globulin Ratio 1.1 (0.9-2) Diagnostic Findings XR chest 1V portable CLINICAL HISTORY: 43 years-old Male presenting with Dyspnea. TECHNIQUE: Portable upright AP view of the chest was obtained. COMPARISON: 01/07/2019. FINDINGS: Atherosclerosis of the aortic arch. Cardiac silhouette enlarged. Coarsened lung markings. Heterogeneous radiolucency of the upper lobes. Mild hyperinflation suggested allowing for exaggerated kyphosis. No focal opacity. No large effusion or pneumothorax. Osteopenia. Upper abdomen normal. IMPRESSION: 1. Findings suggest emphysema. No focal infiltrate to suggest pneumonia. 2. Cardiomegaly. Electronically signed by: Gaudencio Roberts M.D. 01/13/2019 7:10 PM Code Status & VTE Plan Code Status Full Supervising Physician Co-Signing Physician Notes Patient seen and examined, chart reviewed, case discussed with Dr. Mancilla and I agree with her assessment and plan as documented above. Resident Activity Tracking Resident Involvement: Resident Care Provided Care Provided: Adult Hospital Medicine (1) Dyspnea Dyspnea type: unspecified Qualified Code(s): R06.00 - Dyspnea, unspecified
[2019-01-14] MEDS ORDERED: ONDANSETRON INJ 2 MG/ML 2 ML VIAL IV PRN (00:25)
[2019-01-14] MEDS ORDERED: POLYETHYLENE (MIRALAX) 17 GM PACK PO PRN (00:25)
[2019-01-14] MEDS ORDERED: MAGNESIUM HYDROXIDE SUSP 30 ML UDC PO PRN (00:25)
[2019-01-14] MEDS ORDERED: ALUMINUM/MAGNESIUM SUSP 30 ML UDC PO PRN (00:25)
[2019-01-14] MEDS ORDERED: LORazepam 0.5 MG/1 ML VIAL IV PRN (00:25)
[2019-01-14] MEDS ORDERED: ACETAMINOPHEN 325 MG TAB PO PRN (00:25)
--- NOTE | 2019-01-14 01:14 | Emergency Department Note ---
Entered by Guillermo Candelaria acting as a scribe for Juan Arnold MD ED Provider Note CHIEF COMPLAINT: worsening respiratory issues HISTORY OF PRESENT ILLNESS: The patient is a 43 year old M who presents to the Emergency Room with c omplaints of worsening respiratory issues that started earlier today. The HPI was provided by the patients . She states that the patient is scheduled to have a bronchoscopy in 2 days. She notes that the patient saw his straddle carrier operator earlier this week. She adds that the straddle carrier operator stated that the patients respiratory issues were probably anatomical. She notes that the straddle carrier operator told her to manage the patients symptoms at home. She states that the patient is currently on the medication, lorazepam. She adds that the patient took 4 doses of lorazepam yesterday which helped. She notes that the patient was cleaning his house today when his current symptoms got worse. She states that the patient took 3 doses of Ativan today to no relief. She adds that the patient also took his Xopenex and Ipratropium medications with his nebulizer today. The patient states that he is currently e xperiencing bottom lobe lung pain, difficulty swallowing, shortness of breath, mild diarrhea, and reflux. The patients adds that the patient has been taking Mylanta for his reflux issues. She notes that the patient had a hip replacement done 3 months ago due to necrosis. Pt denies LOC, headache, fevers, chills, diaphoresis, visual changes, neck pain, chest pain, nausea, vomiting, abdominal pain, back pain, melena, hematochezia, urinary symptoms, numbness, weakness, lymphadenopathy, rash, or other complaints. REVIEW OF SYSTEMS: See HPI for pertinent positives and negatives. A total of ten systems were reviewed and were otherwise negative. PMHx/PSHx: reflux issues, hip replacement SOCIAL HISTORY: Patient lives at home. PHYSICAL EXAM: GENERAL: Awake, alert, well-appearing, in no distress HENT: Normocephalic, atraumatic. Oropharynx unremarkable. EYES: PERRL. Normal conjunctiva. Sclera non-icteric. NECK: Inspection normal. Non-tender. Supple. No nuchal rigidity. FROM. No masses. no stridor. RESPIRATORY: Clear to auscultation. No wheezes. No rales. Normal respiratory effort. Decreased air movement. CHEST: Pectus deformity. CARDIAC: Normal rate. Normal rhythm. No murmurs. No rubs. Extremities warm and well perfused. Pulses equal. No JVD. GI: Soft, non-distended. No tenderness to palpation. No rebound or guarding. No masses. RECTAL: Deferred. MUSCULOSKELETAL: Atraumatic. Chest examination reveals no tenderness. The back is symmetrical on inspection without obvious abnormality. There is no CVA tenderness to palpation. No joint edema. LOWER EXTREMITIES: Calves are equal size bilaterally and non-tender. No edema. Chronic venous discoloration. NEURO: Normal sensorium. No sensory or motor deficits noted. SKIN: No rash or jaundice noted. EMERGENCY DEPARTMENT COURSE: 1849: Past medical records reviewed including recent pulmonary consult. The patient was evaluated in room B11B, and a complete history and physical examination were performed. 2138: The patient states that he is feeling better. 2246: I reviewed the patient's case with Dr. Dary Bolaños, [facility] Hospitalist. She will evaluate the patient for further management. MEDICAL DECISION MAKING: Prior records/ancillary studies reviewed. The patient had an extensive pulmonary consultation performed. There is concerns about restrictive lung issues as well as mucous plugging in conjunction with anatomic abnormalities. Triage Nursing notes reviewed and agree them. Additional history obtained from the . The patient's history was concerning for shortness of breath. Differential diagnosis: Etiologies such as acute exacerbation of his restrictive lung disease, airway obstruction, pneumonia, COPD, reactive airway disease, CHF, cardiac ischemia, pulmonary embolism, pneumothorax, musculoskeletal, infections, gastrointestinal, as well as others were entertained. Physical examination: As above. No hypoxia. Increased work of breathing. ER treatment provided: IV Ativan Xopenex neb IV Solu-Medrol Cardiac monitoring On reassessment the patient felt better. Diagnostic interpretation by me: The electrocardiogram was negative for pathologic change. The labs revealed an unremarkable CBC and chemistry panel. Troponin negative. Imaging studies: Chest x-ray showed chronic changes without any acute findings. No pneumonia. Patient has significant dyspnea. He has restrictive lung disease. His straddle carrier operator wanted him to be admitted on Tuesday. As the patient is not doing well, I discussed treatment options. The patient and do not feel comfortable being at home given his symptomatology. He is not hypoxic. His laboratory testing is good however his case is complex. I discussed further management in the hospital and the patient and were in agreement. Consultation: A consultation was placed with the hospitalist. The case was discussed and diagnostics were reviewed. The patient was evaluated in the ER for further treatment. IMPRESSION: dyspnea PLAN: The patient is being admitted to the hospital. The scribe's documentation has been prepared under my direction and personally reviewed by me in its entirety. I confirm that the note above accurately reflects all work, treatment, procedures, and medical decision making performed by me. Impression & Plan Dyspnea Past Med/Surg History Medical History H/O lymphopenia (Resolved) History of undescended testicle (Resolved) History of wrist fracture (Resolved) Vitamin D deficiency (Acute) Venous insufficiency (Acute) Steroid-induced avascular necrosis of hip (Acute) Mineral deficiency (Acute) Malaria (Acute) Low back pain (Acute) Hypogammaglobulinemia (Acute) Herpes zoster (Acute) Hearing loss (Acute) Dysfunction of both eustachian tubes (Acute) Degenerative joint disease (DJD) of hip (Acute) Chronic rhinitis (Acute) Chronic reflux esophagitis (Acute) Chronic deep vein thrombosis of popliteal vein (Acute) Back pain (Acute) Allergy (Acute) Avascular necrosis of hip Osteoporosis GERD (gastroesophageal reflux disease) Asthma Bronchiectasis FOLLOWS WITH PULMONARY Dextroscoliosis Hearing deficit HEARING AIDS Hx of deep venous thrombosis 2016 Hx pulmonary embolism 2016 Hypothyroidism Pectus excavatum Surgical History History of placement of ear tubes (Acute) left ear History of ear surgery X4 Hx of hemorrhoidectomy Family History Other Diabetes Heart disease Social History Preferred Language: Cambodian Communication Ability: Effective Beliefs That Will Affect Care: None marital status: Current Living Situation: Family Feels Safe at Home: Yes Smoking Status: Never smoker Second Hand Exposure: No Hx Alcohol Use: No Hx Substance Use: No Results & Data Vital Signs Vital Signs - 24 hr 01/13/19 18:25 01/13/19 18:44 01/13/19 18:50 Temperature 36.8 C Temperature Source Oral Sepsis Recent Fever Within 48 Hours No Sepsis New/Unexplained Change in Mental Status No Sepsis Action Taken by Nursing No Action Required Pulse Rate 107 H 101 H 116 H Pulse Rate [Right Radial] Pulse Rate from SpO2 Sensor 97 H 118 H Respiratory Rate 22 29 H 29 H Respiratory Effort / Characteristics Blood Pressure 127/74 Blood Pressure Mean 91 Blood Pressure Position Sitting Pulse Oximetry 98 97 94 Oxygen Delivery Method Room Air 01/13/19 19:00 01/13/19 19:06 01/13/19 19:10 Temperature Temperature Source Sepsis Recent Fever Within 48 Hours Sepsis New/Unexplained Change in Mental Status Sepsis Action Taken by Nursing Pulse Rate 108 H 108 H Pulse Rate [Right Radial] Pulse Rate from SpO2 Sensor 109 H Respiratory Rate 29 H 31 H Respiratory Effort / Characteristics Blood Pressure Blood Pressure Mean Blood Pressure Position Pulse Oximetry 97 94 Oxygen Delivery Method Room Air 01/13/19 19:20 01/13/19 19:23 01/13/19 19:30 Temperature Temperature Source Sepsis Recent Fever Within 48 Hours Sepsis New/Unexplained Change in Mental Status Sepsis Action Taken by Nursing Pulse Rate 103 H 110 H Pulse Rate [Right Radial] 96 H Pulse Rate from SpO2 Sensor 105 H 113 H Respiratory Rate 30 H 16 36 H Respiratory Effort / Characteristics Non-Labored Spontaneous Blood Pressure Blood Pressure Mean Blood Pressure Position Pulse Oximetry 95 95 96 Oxygen Delivery Method Room Air 01/13/19 19:36 01/13/19 19:40 01/13/19 19:50 Temperature Temperature Source Sepsis Recent Fever Within 48 Hours Sepsis New/Unexplained Change in Mental Status Sepsis Action Taken by Nursing Pulse Rate 89 111 H 109 H Pulse Rate [Right Radial] Pulse Rate from SpO2 Sensor 93 H 111 H 109 H Respiratory Rate 38 H 33 H 29 H Respiratory Effort / Characteristics Blood Pressure 110/66 Blood Pressure Mean 80 Blood Pressure Position Pulse Oximetry 98 96 95 Oxygen Delivery Method 01/13/19 20:00 01/13/19 20:30 01/13/19 20:40 Temperature Temperature Source Sepsis Recent Fever Within 48 Hours Sepsis New/Unexplained Change in Mental Status Sepsis Action Taken by Nursing Pulse Rate 99 H 103 H 104 H Pulse Rate [Right Radial] Pulse Rate from SpO2 Sensor 105 H 103 H 104 H Respiratory Rate 28 H 25 H 28 H Respiratory Effort / Characteristics Blood Pressure 115/71 107/72 Blood Pressure Mean 85 83 Blood Pressure Position Pulse Oximetry 96 94 95 Oxygen Delivery Method 01/13/19 20:50 01/13/19 21:00 01/13/19 21:10 Temperature Temperature Source Sepsis Recent Fever Within 48 Hours Sepsis New/Unexplained Change in Mental Status Sepsis Action Taken by Nursing Pulse Rate 99 H 100 H 95 H Pulse Rate [Right Radial] Pulse Rate from SpO2 Sensor 99 H 99 H 96 H Respiratory Rate 24 26 H 21 Respiratory Effort / Characteristics Blood Pressure 116/72 Blood Pressure Mean 86 Blood Pressure Position Pulse Oximetry 95 95 95 Oxygen Delivery Method 01/13/19 21:20 01/13/19 21:30 01/13/19 21:40 Temperature Temperature Source Sepsis Recent Fever Within 48 Hours Sepsis New/Unexplained Change in Mental Status Sepsis Action Taken by Nursing Pulse Rate 99 H 84 103 H Pulse Rate [Right Radial] Pulse Rate from SpO2 Sensor 98 H 87 105 H Respiratory Rate 21 22 24 Respiratory Effort / Characteristics Blood Pressure 116/76 Blood Pressure Mean 89 Blood Pressure Position Pulse Oximetry 97 96 97 Oxygen Delivery Method 01/13/19 21:50 01/13/19 22:00 01/13/19 23:00 Temperature Temperature Source Sepsis Recent Fever Within 48 Hours Sepsis New/Unexplained Change in Mental Status Sepsis Action Taken by Nursing Pulse Rate 94 H 94 H 101 H Pulse Rate [Right Radial] Pulse Rate from SpO2 Sensor 97 H 95 H 100 H Respiratory Rate 24 25 H 23 Respiratory Effort / Characteristics Blood Pressure 122/78 112/87 Blood Pressure Mean 92 95 Blood Pressure Position Pulse Oximetry 98 97 96 Oxygen Delivery Method Home Medications Current Medication List: was personally reviewed by me Laboratory Data Attestation: I reviewed the patient's lab results. Result diagrams: 01/13/19 19:26 01/13/19 19:26 Lab Results 01/13/19 01/13/19 01/13/19 Range/Units 19:26 19:26 19:26 WBC 5.68 (4.8-10.8) K/uL RBC 4.59 L (4.7-6.1) M/uL Hgb 11.7 L (14.0-18.0) g/dL Hct 37.3 L (42-52) % MCV 81.3 (80-100) fL MCH 25.5 (25-34) pg MCHC 31.4 L (32-36) g/dL RDW Std Deviation 54.0 H (36.4-46.3) fL RDW Coeff of Ligia 18.6 H (11.5-14.5) % Plt Count 188 (130-400) K/uL MPV 9.6 (7.4-10.4) fL Immature Gran % (Auto) 2.6 % Neut % (Auto) 76.5 % Lymph % (Auto) 13.6 % [place] % (Auto) 6.9 % Eos % (Auto) 0.2 % Baso % (Auto) 0.2 % Immature Gran # (Auto) 0.15 H (0.00-0.02) K/uL Neut # (Auto) 4.35 (1.4-6.5) K/uL Lymph # (Auto) 0.77 L (1.2-3.4) K/uL [place] # (Auto) 0.39 (0.11-0.59) K/uL Eos # (Auto) 0.01 (0-0.5) K/uL Baso # (Auto) 0.01 (0-0.2) K/uL Absolute Nucleated RBC 0.02 H (0-0) K/uL Nucleated RBC % (auto) 0.3 % PT 10.5 (9.0-12.0) Seconds INR 1.0 (0.9-1.1) APTT 22.3 (21.0-31.0) Seconds PTT Ratio 0.8 Sodium 144 (136-145) mmol/L Potassium 4.3 (3.5-5.1) mmol/L Chloride 109 H (98-107) mmol/L Carbon Dioxide 29 (21-32) mmol/L Anion Gap 7.0 (3-11) BUN 14 (7-18) mg/dl Creatinine 0.86 (0.6-1.4) mg/dl Est Cr Clr Drug Dosing 103.6 ml/min Est GFR ( Amer) 122.2 Est GFR (Non-Af Amer) 105.5 BUN/Creatinine Ratio 16.7 (10-20) Glucose 120 H (70-99) mg/dl Calcium 9.1 (8.5-10.1) mg/dl Magnesium 2.1 (1.8-2.4) mg/dl Total Bilirubin 0.5 (0.2-1) mg/dl AST 13 L (15-37) U/L ALT 44 (12-78) U/L Alkaline Phosphatase 62 (45-117) U/L Troponin I < 0.015 (0-0.045) ng/ml Total Protein 6.4 (6.4-8.2) gm/dl Albumin 3.4 (3.4-5.0) gm/dl Globulin 3.0 (2.5-4.0) gm/dl Albumin/Globulin Ratio 1.1 (0.9-2) Administered Medications Discontinued Medications Lorazepam (Ativan) 1 mg in 2 mls @ 2 mls/min IV NOW STA Stop: 01/13/19 18:55 Last Admin: 01/13/19 19:36 Dose: 2 mls/min Documented by: [id number] Levalbuterol HCl (Xopenex 1.25mg/3ml Neb) 1.25 mg NEB NOW STA Stop: 01/13/19 18:55 Last Admin: 01/13/19 19:21 Dose: 1.25 mg Documented by: [id number] Methylprednisolone (Solumedrol) 125 mg IV NOW STA Stop: 01/13/19 18:55 Last Admin: 01/13/19 19:37 Dose: 125 mg Documented by: [id number] Imaging Data Radiologist's Impression: Radiology results as stated below per my review and the radiologist's interpretation: XR chest 1V portable CLINICAL HISTORY: 43 years-old Male presenting with Dyspnea. TECHNIQUE: Portable upright AP view of the chest was obtained. COMPARISON: 01/07/2019. FINDINGS: Atherosclerosis of the aortic arch. Cardiac silhouette enlarged. Coarsened lung markings. Heterogeneous radiolucency of the upper lobes. Mild hyperinflation suggested allowing for exaggerated kyphosis. No focal opacity. No large effusion or pneumothorax. Osteopenia. Upper abdomen normal. IMPRESSION: 1. Findings suggest emphysema. No focal infiltrate to suggest pneumonia. 2. Cardiomegaly. Electronically signed by: Gaudencio Roberts M.D. 01/13/2019 7:10 PM ECG Data Attestation: I personally reviewed and interpreted this ECG as follows: Indication: SOB/dyspnea Rate (beats per minute): 86 Rhythm: sinus rhythm Findings: no PAC, no ST depression and no ST elevation Blood Pressure Blood Pressure Findings: Normal blood pressure Blood Pressure Disposition: did not require urgent referral Discharge Plan Visit Data *Final* Discharge Date/Time: 01/13/19 23:29 Chief Complaint: Respiratory Problems Stated Complaint: DIFFICULTY BREATHING ED Provider: Juan Arnold Discharge Problem: Dyspnea Patient Disposition: Admitted As Inpatient Discharge Instructions Interventions: ED Discharge Assessment Last Done: 01/13/19 23:39 Discharge Problem: Dyspnea Qualifiers: Dyspnea type: unspecified Qualified Code(s): R06.00 - Dyspnea, unspecified The scribe's documentation has been prepared under my direction and personally reviewed by me in its entirety. I confirm that the note above accurately reflects all work, treatment, procedures, and medical decision making performed by me.
[2019-01-14 01:44] LABS: Appearance Urine Clear (Clear); Bilirubin Urine Negative (Negative); Blood Urine Negative (Negative); Color Urine Yellow; Glucose Urine UA Negative (Negative); Ketones Urine Negative (Negative); Leukocyte Esterase Urine Negative (Negative); Nitrite Urine Negative (Negative); Protein Urine Negative (Negative); Specific Gravity Urine 1.019 (1.000-1.030); Urobilinogen Urine Negative (Negative); pH Urine 6.5 (4.5-7.5)
[2019-01-14] MEDS: LEVOTHYROXINE SODIUM 25 MCG TABLET PO SCH (06:16)
[2019-01-14] MEDS ORDERED: ENOXAPARIN 80 MG/0.8 ML SYR SQ ONE (06:30)
[2019-01-14 07:41] LABS: Basophils # (auto) 0.01 K/uL (0-0.2); Basophils % (auto) 0.1 %; Hematocrit (blood only) 39.4 % (42-52); Hemoglobin 12.4 g/dL (14.0-18.0); Immature Granulocytes # (auto) 0.18 K/uL (0.00-0.02); Immature Granulocytes % (auto) 2.5 %; Lymphocytes # (auto) 0.61 K/uL (1.2-3.4); Lymphocytes % (auto) 8.5 %; Mean Corpuscular Hgb Conc 31.5 g/dL (32-36); Mean Corpuscular Volume 80.9 fL (80-100); Mean Platelet Volume 9.7 fL (7.4-10.4); Monocytes # (auto) 0.18 K/uL (0.11-0.59); Monocytes % (auto) 2.5 %; Neutrophils # (auto) 6.22 K/uL (1.4-6.5); Neutrophils % (auto) 86.4 %; Platelet Count 187 K/uL (130-400); RDW Coefficient of Variation 18.4 % (11.5-14.5); RDW Standard Deviation 53.8 fL (36.4-46.3); Red Blood Count 4.87 M/uL (4.7-6.1)
[2019-01-14 07:52] LABS: Prothrombin Time 10.6 Seconds (9.0-12.0)
[2019-01-14 08:05] LABS: Calcium 9.2 mg/dl (8.5-10.1); Creatinine Clr Calc Pharmacy 123.9 ml/min; Est GFR (African American) 132.3; Est GFR (Non-African American) 114.1; Potassium 4.3 mmol/L (3.5-5.1)
[2019-01-14] MEDS: predniSONE 50 MG TAB PO SCH (08:45)
[2019-01-14] MEDS: MULTIVITAMIN TAB PO SCH (08:45)
[2019-01-14] MEDS: MONTELUKAST SODIUM 10 MG TABLET PO SCH (08:45)
[2019-01-14] MEDS: FEXOFENADINE HCL 180 MG TAB PO SCH (08:45)
[2019-01-14] MEDS: CHOLECALCIFEROL 1,000 UNITS TAB PO SCH (08:45)
[2019-01-14] MEDS: DICLOFENAC SOD 1% GEL 100 GM TUBE EXT SCH ×2 (08:47→20:47)
[2019-01-14] MEDS ORDERED: LEVALBUTEROL TARTRATE 15 GM HFA.AER.AD INH SCH (09:00)
[2019-01-14] MEDS: LEVALBUTEROL HCL 1.25 MG/3 ML NEB INH PRN ×2 (10:25→16:14)
--- NOTE | 2019-01-14 11:28 | Hospitalist Progress Note ---
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 Dyspnea/pectus excavatum/kyphoscoliosis/anxiety/COPD and restrictive lung disease/bronchiectasis-remains and not much improved after receiving IV steroids yesterday and continuing on prednisone 50 mg daily today Reports that in the past, he has felt tremendously better after bronchoscopy -Thought to be related to anatomic deficits +/- asthma,chronic bronchiectasis -Inhalers continued -Continue home prednisone taper: currently on 50 mg x 1 week -For bronch on 01/[address] Morrissey -N.p.o. after midnight -Continue to use Prn ativan for anxiety associated with dyspnea (2) Esophageal spasm: Stable -Pt takes diltiazem 60 qhs (3) Hypothyroidism (acquired): TSH was normal at 2.55 and 09/2018 -Cont home levothyroxine 25 mcg daily (4) Anxiety: Continue Ativan as needed (5) Pulmonary embolism: H/O recurrent DVTs/PEs -on chronic coumadin tx -Is on a bridge of lovenox for bronch-last dose received on the morning of 01/14 -Will hold further chemical DVT prophy until after bronch, and then well restart coumadin (6) DVT (deep venous thrombosis): With a history of such as above (7) Pectus excavatum: As above, likely contributing to restrictive lung disease (8) Asthma: Versus COPD Outpatient PFTs show severely reduced FEV1 FVC ratio -Continue bronchodilators and inhaled corticosteroids, as well as cetirizine and fexofenadine although question why on 2 different antihistamines -Continue montelukast and Azo lasting nasal spray On 50 mg of prednisone daily and taper down from there as per direction of pulmonology (9) Low back pain: -Continue Voltaren gel, acetaminophen as needed (10) Osteoporosis: -On prolia q 6mo. (11) DVT prophylaxis: Code: full Dispo: med/surg, awaiting bronch DVTP: SCDs, restart coumadin after bronch. Received therapeutic dose of Lovenox on the morning of 01/14 but will hold any further doses for bronchoscopy tomorrow Subjective Patient was very calm and watching his [employer] service on his cell phone when I walked in the room. As soon as I asked him how he was doing, he looked at me and started becoming tachypneic and saying he was very short of breath and could not catch his breath. He reports that "I am not normal," citing that he has multiple congenital type abnormalities. I discussed the case with pulmonology He reports that he did not cut down on Ativan prior to admission, that he was only supposed to hold off on taking Ativan on the afternoon prior to his bronchoscopy. He reports he feels pretty much no better since admission. Review of Systems Review of Systems: All systems reviewed & are unremarkable except as noted in HPI & below Physical Exam Constitutional: + thin; no acute distress Eyes: PERRL, conjunctivae normal, anicteric sclerae ENMT: external ear and nose normal, oropharynx normal Neck: trachea midline, no thyromegaly Respiratory: normal respiratory effort; no cough Auscultation: + crackles (At the right base); no rhonchi and no wheezes Cardiovascular: RRR, no murmur, no edema Chest (Breasts): Chest: + abnormal inspection of chest (With pectus excavatum deformity) Gastrointestinal (Abdomen): normal bowel sounds, soft, nontender, no hepatosplenomegaly Musculoskeletal: Spine: + kyphosis Extremities: extremities normal to inspection; no cyanosis and no clubbing Skin: no rashes, warm and dry Neurologic: moves all extremities and awake; no focal motor deficits Psychiatric: Orientation: alert, oriented x 3, oriented to person and cooperative Affect: + anxious affect Mood: + anxious mood Results & Data Vital Signs (Past 12 Hours) Vital Signs Temp Pulse Pulse Resp BP Pulse Ox 01/14/19 10:27 77 18 97 01/14/19 07:23 36.5 C 87 18 102/62 99 01/14/19 01:18 36.4 C L 90 16 118/74 98 01/13/19 23:39 60 22 99 Laboratory Results 01/14/19 01/14/19 01/14/19 Range/Units 07:20 07:20 07:20 WBC 7.20 (4.8-10.8) K/uL RBC 4.87 (4.7-6.1) M/uL Hgb 12.4 L (14.0-18.0) g/dL Hct 39.4 L (42-52) % MCV 80.9 (80-100) fL MCH 25.5 (25-34) pg MCHC 31.5 L (32-36) g/dL RDW Std Deviation 53.8 H (36.4-46.3) fL RDW Coeff of Ligia 18.4 H (11.5-14.5) % Plt Count 187 (130-400) K/uL MPV 9.7 (7.4-10.4) fL Immature Gran % (Auto) 2.5 % Neut % (Auto) 86.4 % Lymph % (Auto) 8.5 % [place] % (Auto) 2.5 % Eos % (Auto) 0.0 % Baso % (Auto) 0.1 % Immature Gran # (Auto) 0.18 H (0.00-0.02) K/uL Neut # (Auto) 6.22 (1.4-6.5) K/uL Lymph # (Auto) 0.61 L (1.2-3.4) K/uL [place] # (Auto) 0.18 (0.11-0.59) K/uL Eos # (Auto) 0.00 (0-0.5) K/uL Baso # (Auto) 0.01 (0-0.2) K/uL PT 10.6 (9.0-12.0) Seconds INR 1.0 (0.9-1.1) Sodium 142 (136-145) mmol/L Potassium 4.3 (3.5-5.1) mmol/L Chloride 105 (98-107) mmol/L Carbon Dioxide 29 (21-32) mmol/L Anion Gap 7.0 (3-11) BUN 14 (7-18) mg/dl Creatinine 0.71 (0.6-1.4) mg/dl Est Cr Clr Drug Dosing 123.9 ml/min Est GFR ( Amer) 132.3 Est GFR (Non-Af Amer) 114.1 BUN/Creatinine Ratio 19.0 (10-20) Glucose 117 H (70-99) mg/dl Calcium 9.2 (8.5-10.1) mg/dl Urine Color Urine Appearance (Clear) Urine pH (4.5-7.5) Ur Specific [place] (1.000-1.030) Urine Protein (Negative) Urine Glucose (UA) (Negative) Urine Ketones (Negative) Urine Blood (Negative) Urine Nitrite (Negative) Urine Bilirubin (Negative) Urine Urobilinogen (Negative) Ur Leukocyte Esterase (Negative) 01/14/19 Range/Units 01:10 WBC (4.8-10.8) K/uL RBC (4.7-6.1) M/uL Hgb (14.0-18.0) g/dL Hct (42-52) % MCV (80-100) fL MCH (25-34) pg MCHC (32-36) g/dL RDW Std Deviation (36.4-46.3) fL RDW Coeff of Ligia (11.5-14.5) % Plt Count (130-400) K/uL MPV (7.4-10.4) fL Immature Gran % (Auto) % Neut % (Auto) % Lymph % (Auto) % [place] % (Auto) % Eos % (Auto) % Baso % (Auto) % Immature Gran # (Auto) (0.00-0.02) K/uL Neut # (Auto) (1.4-6.5) K/uL Lymph # (Auto) (1.2-3.4) K/uL [place] # (Auto) (0.11-0.59) K/uL Eos # (Auto) (0-0.5) K/uL Baso # (Auto) (0-0.2) K/uL PT (9.0-12.0) Seconds INR (0.9-1.1) Sodium (136-145) mmol/L Potassium (3.5-5.1) mmol/L Chloride (98-107) mmol/L Carbon Dioxide (21-32) mmol/L Anion Gap (3-11) BUN (7-18) mg/dl Creatinine (0.6-1.4) mg/dl Est Cr Clr Drug Dosing ml/min Est GFR ( Amer) Est GFR (Non-Af Amer) BUN/Creatinine Ratio (10-20) Glucose (70-99) mg/dl Calcium (8.5-10.1) mg/dl Urine Color Yellow Urine Appearance Clear (Clear) Urine pH 6.5 (4.5-7.5) Ur Specific [place] 1.019 (1.000-1.030) Urine Protein Negative (Negative) Urine Glucose (UA) Negative (Negative) Urine Ketones Negative (Negative) Urine Blood Negative (Negative) Urine Nitrite Negative (Negative) Urine Bilirubin Negative (Negative) Urine Urobilinogen Negative (Negative) Ur Leukocyte Esterase Negative (Negative) (1) Dyspnea Dyspnea type: unspecified Qualified Code(s): R06.00 - Dyspnea, unspecified
--- NOTE | 2019-01-14 12:31 | Consultation Report ---
DATE OF CONSULTATION: 01/14/2019 TIME: 10:55 a.m. REPORT OF CONSULTATION: The patient was seen in room 411. He is a 43-year-old male who has a chief complaint of shortness of breath. He has a longstanding history of breathing difficulties. He has a history of severe congenital pectus excavatum with kyphosis and some scoliosis. He also carries a history of asthma and COPD. The patient for the past few months has been having worsening shortness of breath. He has not responded well to a variety of interventions. 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 He came to the Emergency Room on 11/07/2018 with fevers and chills. He was treated and released. Subsequently, he has been hospitalized from 12/18/2018 through 12/20/2018, 12/26/2018 through 12/28/2018, and an ER visit on 01/07/2019. He presented to the Emergency Room yesterday with progressive shortness of breath. He just gets the feeling he cannot move his air in and out. He has been having no significant difficulties with oxygenation. Saturations have been good. He has had some tachypnea, however. In addition to the pulmonary problems already mentioned, he has a history of recurring DVT and PE. He has been on long-term anticoagulation therapy. Dr. Morrissey saw the patient in consultation on 12/27/2018 while he was an inpatient. At that time, he was considering doing outpatient bronchoscopy. The patient states that this is set up for 01/15/2019. When he came to the ER yesterday and was so uncomfortable, it was felt that he likely should be admitted. The patient's voice has been weak. At times, he has difficulty talking. He has almost no cough. He does not bring up sputum. There has been no hemoptysis. He does complain of some pain in the bottom of his lungs. He has had some swallowing problems. Three days ago, he had mild diarrhea, but that was self-limited. Since admission, he has been fairly comfortable according to nursing staff, although the patient himself still feels very short of breath. He has had outpatient pulmonary function tests which per Dr. Morrissey's report is severely abnormal. The patient previously had bronchoscopy in August [address] Weller. Reportedly some white plaques were noted submucosally. PAST SURGICAL HISTORY: 1. Total hip replacement. 2. Myringotomy. 3. Undescended testicle surgery. 4. Hemorrhoidectomy. PAST MEDICAL HISTORY: 1. Pectus excavatum. 2. kyphosis/scoliosis. 3. Restrictive lung disease. 4. Asthma/COPD. 5. Allergic rhinitis. 6. Anxiety. SOCIAL HISTORY: Tobacco never. ETOH - none. ALLERGIES: 1. GLUTEN. 2. CIPRO. 3. OXYCODONE. MEDICATIONS AT HOME: 1. Vitamin C. 2. Azelastine nasal spray. 3. Multivitamin. 4. Cetirizine 10 mg at bedtime. 5. Diclofenac topical. 6. Diltiazem 60 mg at bedtime. 7. Enoxaparin. 8. Fexofenadine. 9. Fluticasone nasal spray. 10. Trelegy Ellipta. 11. Levalbuterol and ipratropium by nebulizer. 12. Levalbuterol inhaler p.r.n. 13. Levothyroxine. 14. Ativan 0.5 t.i.d. p.r.n. 15. Meclizine. 16. Montelukast. 17. Omeprazole. 18. Prolia. REVIEW OF SYSTEMS: Negative except as noted in history of present illness. PHYSICAL EXAMINATION: GENERAL: The patient is a 43-year-old male who was cooperative and alert. He gives the appearance of either being anxious or stressed. His voice was slightly hoarse. The patient was using his phone consistently throughout my exam apparently for texting or other nonverbal reasons. VITAL SIGNS: Temperature 36.5. There have been no fevers. HEENT: Eye exam showed evidence of implants bilaterally. Nares clear. Mouth exam shows an enlarged uvula. No erythema or exudate noted. NECK: Palpation of the neck reveals no lymph nodes. CHEST: Inspection of the chest reveals a severe kyphosis with mild scoliosis. HEART: Heart rate 77 per minute. Rhythm regular. Blood pressure 102/62. LUNGS: Lung woo were clear bilaterally. No wheezes, rales, or rhonchi heard. Saturation 97% on room air at rest. Severe pectus excavatum noted. ABDOMEN: Soft. Bowel sounds present. The patient complained of mild tenderness to palpation in the upper abdomen. No masses palpable. EXTREMITIES: Showed a large amount of varicose veins in the lower extremities. No cyanosis, clubbing or edema. LABORATORY DATA: White count today is 7.2. Hemoglobin 12.4. Platelets 187,000. INR today 1.0. Blood gas was done on 01/07/2019 and this showed pH 7.46, pCO2 of 36, and pO2 of 88 on room air. Electrolytes show sodium 142, potassium 4.3, chloride 105, bicarbonate 29. BUN 14, creatinine 0.71. Glucose 117. Liver functions normal. Total protein 6.4 with albumin 3.4 and globulin 3.0. Troponins negative. Urinalysis negative. IgE level done 12/22/2018 was 34. Earlier this year, IgG mildly decreased to 653. IgM mildly decreased to 31.4. IMPRESSION: 1. Shortness of breath - multifactorial. 2. Severe pectus excavatum. 3. Kyphosis and scoliosis. 4. Asthma/chronic obstructive pulmonary disease. COMMENTS AND RECOMMENDATIONS: The patient seems very stressed and anxious. His oxygenation has been good. Blood gas was normal recently. He is currently on prednisone 50 mg. I do not know with certainty when that was started. It appears that he is getting his levalbuterol inhaler 3 puffs b.i.d. I am not sure if that is how he was ordered at home. That would not be the usual. He has levalbuterol ordered by nebulizer p.r.n. He tells me he also takes ipratropium at home. He is scheduled for bronchoscopy tomorrow by Dr. Morrissey. That may help ruling out whether he has retained secretions as a cause of his breathing difficulties.
[2019-01-14] MEDS: LEVALBUTEROL TARTRATE 15 GM HFA.AER.AD INH SCH (20:47)
[2019-01-14] MEDS ORDERED: FLUTICASONE PROPIONATE NA SPR 16 GM BTL SCH (21:00)
[2019-01-14] MEDS ORDERED: CETIRIZINE HCL 10 MG TABLET PO SCH (21:00)
[2019-01-14] MEDS ORDERED: dilTIAZem HCl 60 MG TAB PO SCH (21:00)
[2019-01-15] MEDS: LEVOTHYROXINE SODIUM 25 MCG TABLET PO SCH (06:34)
[2019-01-15] MEDS: predniSONE 50 MG TAB PO SCH (07:57)
[2019-01-15] MEDS: MULTIVITAMIN TAB PO SCH (07:57)
[2019-01-15] MEDS: MONTELUKAST SODIUM 10 MG TABLET PO SCH (07:58)
[2019-01-15] MEDS: CHOLECALCIFEROL 1,000 UNITS TAB PO SCH (07:58)
[2019-01-15] MEDS: FEXOFENADINE HCL 180 MG TAB PO SCH (08:01)
[2019-01-15] MEDS: DICLOFENAC SOD 1% GEL 100 GM TUBE EXT SCH (08:02)
[2019-01-15] MEDS: LEVALBUTEROL TARTRATE 15 GM HFA.AER.AD INH SCH (08:02)
--- NOTE | 2019-01-15 08:15 | History & Physical Bridge Note ---
Date of Service January 15, 2019 History & Physical Bridge Note I have examined the patient, reviewed the History & Physical and in the interval since the performance of the History & Physical I have noted the following changes of clinical significance: no changes noted Supervising Physician Co-Signing Physician Notes Patient seen and examined, chart reviewed, case discussed with Dr. Mancilla and I agree with her assessment and plan as documented above.
--- NOTE | 2019-01-15 08:16 | Pre Anesthesia Assessment ---
Date of Service January 15, 2019 Pre Sedation Assessment Vital Signs Temp Pulse Resp BP Pulse Ox 01/15/19 07:29 36.8 C 79 16 101/66 100 01/15/19 01:00 36.7 C 90 18 108/56 L 95 01/14/19 20:44 98 H 112/71 01/14/19 16:15 103 H 14 97 01/14/19 15:05 36.7 C 110 H 18 123/72 98 01/14/19 10:27 77 18 97 Cardiovascular RRR, no murmur, no edema + peripheral pulses normal Respiratory normal respiratory effort, lungs clear to auscultation Pre-Sedation Airway Assessment Smoking Status: Never smoker Hx Sleep Apnea: No Hx Difficult Intubation: No Short, Thick Neck: No Thyromental Distance: > or= 3.5 Finger Breadths Oral Cavity: + WNL Mallampati Class: II ASA: ASA2 Notes The planned sedation has been discussed with the patient. Informed Consent was obtained. I have identified the patient, determined the appropriateness of sedation and have assessed the patient immediately prior to the procedure. All medicine(s) and interventions are by my order. Supervising Physician Co-Signing Physician Notes Patient seen and examined, chart reviewed, case discussed with Dr. Mancilla and I agree with her assessment and plan as documented above.
[2019-01-15] MEDS ORDERED: SODIUM CHLORIDE 0.9% 1000ML 1,000 ML IV SCH (08:30)
[2019-01-15] MEDS ORDERED: AZELASTINE NAE SCH (09:00)
[2019-01-15] MEDS ORDERED: FLUTICASONE/UMECLIDIN/VILANTER INH SCH (09:00)
[2019-01-15] MEDS ORDERED: LIDOCAINE 4% INH SOLN 4 ML BTL STA (11:05)
[2019-01-15] MEDS ORDERED: LIDOCAINE HCL VISCOUS SOLN 2% 15 ML UDC EXT ONE (11:05)
[2019-01-15] MEDS ORDERED: OXYMETAZOLINE 0.05% 30 ML BTL ONE (11:05)
[2019-01-15] MEDS ORDERED: fentaNYL citrate 100 MCG/2 ML VIAL IV ONE (11:05)
[2019-01-15] MEDS ORDERED: LEVALBUTEROL HCL 1.25 MG/3 ML NEB NEB STA (11:05)
[2019-01-15] MEDS ORDERED: MIDAZOLAM HCL 1 MG/ML 2ML VIAL IV STA (11:05)
--- NOTE | 2019-01-15 11:07 | Post Anesthesia Assessment ---
Date of Service January 15, 2019 Post Sedation Assessment Vital Signs Temp Pulse Pulse Resp BP Pulse Ox 01/15/19 11:00 98 H 20 125/77 95 01/15/19 10:55 104 H 18 127/82 93 01/15/19 10:50 106 H 18 132/91 93 01/15/19 10:45 102 H 20 141/89 H 100 01/15/19 10:40 77 20 122/80 100 01/15/19 10:35 69 20 126/76 100 01/15/19 10:30 71 20 118/80 100 01/15/19 10:25 63 20 130/83 01/15/19 07:29 36.8 C 79 16 101/66 100 01/15/19 01:00 36.7 C 90 18 108/56 L 95 01/14/19 20:44 98 H 112/71 01/14/19 16:15 103 H 14 97 01/14/19 15:05 36.7 C 110 H 18 123/72 98 Recovery Score Activity: Moves 4 extremities Respiration: Deep Breath/Cough Circulation: +/-20% PreAnes Value Consciousness: Arouseable (by name) Oxygen Saturation: O2 needed for >90% Post Anesthesia Score: 8 Discharge Sedation Level of Care: Fast Track Phase II Post Sedation Plan On clinical assessment, the patient appears to have tolerated the sedation without complications. Patient is recovering as anticipated. Patient will continue to be monitored by nursing and may be discharged when sedation discharge criteria are met per below protocol. Upon Completions of procedure and additional 15 minutes continue every 5 minute vital signs and the P.A.R. score; then discharge to a Phase I or Fast Track to Phase II per the following guidelines: * Discharge Patient to appropriate Phase II area if PAR is 8 or greater or return to pre- procedure baseline. The post - procedure orders will be as directed. * If PAR score is less than 8 or not return to pre-procedure baseline then patient will follow Phase I monitoring till PAR is reached for Phase II. The Phase I may be done in procedure room or may call to secure a Phase I area. * If naloxone or flumazenil are used for reversal, hold in Phase I for continued monitoring from when last reversal dose was given for a minimum of 60 minutes or longer pending the nurse and/or physician discretion of patient condition before discharge to Phase II. Please call the Sedation Physician to re-evaluate and complete post-note for discharge to Phase II area. Do NOT discharge from procedure sedation or Phase 1 until post- sedation evaluation note is complete by procedure /sedation MD Sedation Discharge Instructions to be given to the patient at discharge to home. Supervising Physician Co-Signing Physician Notes Patient seen and examined, chart reviewed, case discussed with Dr. Mancilla and I agree with her assessment and plan as documented above.
--- NOTE | 2019-01-15 11:09 | Post Operative Brief Note ---
Immediate Post Op Note v1 Date of Surgery January 15, 2019 Pre & Post Diagnosis Operation Date: 01/15/19 10:00 Pre-Op Diagnosis: pectus excavatum, chronic bronchiectasis Post-Op Diagnosis: pectus excavatum, chronic bronchiectasis w mucoid impaction Procedure Operation Date: 01/15/19 10:00 Actual Procedures p Bronchoscopy (Bilateral) - Cesar Morrissey MD Surgeon Cesar Morrissey MD Life Skills Coordinator none Estimated Blood Loss 0 Findings Consistent with Post-Op Diagnosis Chronic Bronchiectasis w mucoid impaction Complications none Disposition Accompanied Patient To Recovery: No Overlapping Procedure I was present for: the critical portions of procedure. I was immediately available: during the entire case. Back up surgeon: was not required during procedure.
[2019-01-15] MEDS ORDERED: LIDOCAINE HCL 2% (LOCAL) INJ 50 ML VIAL INSTIL SCH (11:15)
[2019-01-15] MEDS ORDERED: ACETYLCYSTEINE 20% INHAL SOLN ***DISPENSED BY RESP. INH SCH (11:30)
--- NOTE | 2019-01-15 13:22 | Operative Report ---
DATE OF OPERATION: 01/15/2019 TIME: 10:00. PROCEDURE: Fiberoptic bronchoscopy with bronchoalveolar lavage. INDICATIONS: Severe and unrelenting dyspnea with exertion/multiple admissions/history of chronic bronchiectasis with mucoid impaction/severe pectus excavatum. ANESTHESIA PREOPERATIVELY: None. ANESTHESIA DURING PROCEDURE: IV Versed 4 mg, IV fentanyl 100 mcg, 20 mL of 2% Xylocaine spray above and below the cords, 4% viscous Xylocaine intranasally. DESCRIPTION OF PROCEDURE: Moderate conscious sedation was implemented at 10:40 and completed at 10:57. Fiberoptic bronchoscope was inserted into the right naris without difficulty and passed to the level of the true vocal cords. The epiglottis was unusually shaped in a U-shaped/cornucopia design. This just represented an anatomic variant. There was no sign of upper airway obstruction. Both the true and false cords were anesthetized with 2% Xylocaine and a thick amount of mucoviscous secretion was seen adherent to the supraglottic apparatus and lavaged and suctioned till clear. The cords were anesthetized. The scope was passed into the trachea. Immediately visible was thick tenacious mucoviscous secretion that was adherent to the tracheal wall in all sides and posteriorly as well as anteriorly. This created the image of the film that was encasing the trachea and was lavaged copiously with normosol and some of it was able to be aspirated. The cecilio was sharp and the same mucoviscous secretion was seen involving the right and left tracheobronchial tree. The right main stem bronchus was explored initially and no obvious endobronchial lesions were seen. Right upper lobe, the apical posterior and anterior segments, bronchus intermedius with the medial and lateral segments of the right middle lobe and all basilar segments of right lower lobe were found to be free of endobronchial lesions. Left tracheobronchial tree was explored with similar findings with the left upper lobe, lingula subdivision and left lower lobe virtually occluded with thick mucoviscous secretion. The scope was withdrawn as the patient became somewhat tachycardic. Hemodynamics returned to normal as did his heart rate and scope was reinserted in similar fashion into the right and left tracheobronchial tree, appeared at the level of the subglottic region. A 20% Mucomyst totaling 10-12 mL were instilled throughout the tracheobronchial tree, into the right and left tracheobronchial tree as well as dispersed throughout the trachea. The scope was then removed and then reinserted a few minutes later and I was able to lavage the trachea and right and left tracheobronchial tree pretty easily and the aspirate was sent for appropriate studies. Each lobar segment and segmental bronchus was lavaged with normosol and the total was collected and sent for analysis. Upon further inspection, no further impaction was noted and the trachea was able to be suctioned adequately with no sign of this thick film adherent to the tracheobronchial tree as seen previously. The specimens were sent for appropriate studies. The patient tolerated this procedure well and was transferred back to the medical floor, hemodynamically stable. No signs of respiratory compromise. He was given a nebulizer treatment with Xopenex 1.25 mg prior to departure. OVERALL ASSESSMENT: 1. Severe pectus excavatum. 2. Chronic bronchiectasis with possible issues with mucociliary elevator. 3. Thick tenacious tracheobronchial secretions lavaged after instilling normal saline with Mucomyst. I attest to the content of the Intraoperative Record and any orders documented therein. Any exceptions are noted below. MTDD
[2019-01-15] MEDS ORDERED: Nursing to Pharmacy Communication ONE ×2 (13:36→13:41)
--- NOTE | 2019-01-15 17:46 | Discharge Summary ---
Date of Service January 15, 2019 Admission HPI Per Admitting Provider Patient is a 43 yo M with a complicated medical history including severe congenital pectus excavatum and scoliosis/kyphosis who presents with shortness of breath, increased work of breathing. Per discussion, patient had been seen in the pulmonology clinic on 01/12/19 where it was questioned whether he should be admitted that day due to increased work of breathing and shortness of breath. He is well known to Dr. Morrissey and since Dr. Morrissey was not in the hospital on 01/12/19, it was decided to try and wait over the weekend and he would have scheduled bronchoscopy on 01/15/19. Per , he had been instructed to cut back on prn ativan, and in so doing he is having increased shortness of breath, work of breathing. He is currently completing a prednisone taper, on 50mg daily. He has completed his lovenox bridge for procedure on 01/15. On arrival to ER, patient was hoarse, but not hypoxic with some increased WOB and tachypnea. He was given a xopenex neb, solumedrol burst, and IV ativan and reports minimal improvement. Lab workup was negative. CXR shows no acute changes from baseline with emphysema and skeletal abnormalities. Patient is resting comfortably in no distress on my assessment. 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 Principal Diagnosis COPD and mucus plugging Discharge Exam Constitutional + thin; no acute distress Eyes PERRL, conjunctivae normal, anicteric sclerae ENMT external ear and nose normal, oropharynx normal Neck trachea midline, no thyromegaly Respiratory normal respiratory effort; no cough Auscultation: + crackles (At the right base); no rhonchi and no wheezes Cardiovascular RRR, no murmur, no edema Chest (Breasts) Chest: + abnormal inspection of chest (With pectus excavatum deformity) Gastrointestinal (Abdomen) normal bowel sounds, soft, nontender, no hepatosplenomegaly Musculoskeletal Spine: + kyphosis Extremities: extremities normal to inspection; no cyanosis and no clubbing Skin no rashes, warm and dry Neurologic moves all extremities and awake; no focal motor deficits Psychiatric Orientation: alert, oriented x 3, oriented to person and cooperative Affect: + anxious affect Mood: + anxious mood Discharge Data Allergies Allergy/AdvReac Type Severity Reaction Status Date / Time gluten Allergy Unknown STOMACH Verified 01/13/19 19:20 ISSUES Cipro AdvReac Intermediate issue with Verified 08/19/17 14:34 legs ciprofloxacin AdvReac Intermediate issue with Verified 01/13/19 19:20 legs oxycodone AdvReac Mild GI upset Verified 01/13/19 19:20 Consultations 01/13/19 23:43 ED Decision to Admit Stat 01/14/19 00:25 Consult Pulmonology Routine Procedures Performed Operation Date: 01/15/19 10:00 Actual Procedures p Bronchoscopy (Bilateral) - Cesar Morrissey MD Hospital Course (1) Dyspnea: This patient is a 43yo male with a history of severe congenital pectus excavating him and scoliosis with kyphosis, history of DVT/PE, AVN of the hip, hypogammaglobulinemia, hypothyroidism, COPD and restrictive lung disease, GERD, who is admitted due to continued dyspnea, tachypnea, for bronchoscopy on . Dyspnea/pectus excavatum/kyphoscoliosis/anxiety/COPD and restrictive lung disease/bronchiectasis-remains and not much improved after receiving IV steroids yesterday and continuing on prednisone 50 mg daily today He felt tremendously better after bronchoscopy as he had mucus plugging washed out. -Continue home prednisone taper: currently on 50 mg x 1 week (2) Esophageal spasm: Stable -Pt takes diltiazem 60 qhs (3) Hypothyroidism (acquired): TSH was normal at 2.55 and 09/2018 -Cont home levothyroxine 25 mcg daily (4) Anxiety: Continue Ativan as needed (5) Pulmonary embolism: H/O recurrent DVTs/PEs -on chronic coumadin tx -Is on a bridge of lovenox for bronch-last dose received on the morning of 01/14 -Will hold further chemical DVT prophy until after bronch, and then well restart coumadin (6) DVT (deep venous thrombosis): With a history of such as above (7) Pectus excavatum: As above, likely contributing to restrictive lung disease (8) Asthma: Versus COPD Outpatient PFTs show severely reduced FEV1 FVC ratio -Continue bronchodilators and inhaled corticosteroids, as well as cetirizine and fexofenadine although question why on 2 different antihistamines -Continue montelukast and Azo lasting nasal spray On 50 mg of prednisone daily and taper down from there as per direction of pulmonology (9) Low back pain: -Continue Voltaren gel, acetaminophen as needed (10) Osteoporosis: -On prolia q 6mo. (11) DVT prophylaxis: Code: full Dispo: med/surg, awaiting bronch DVTP: SCDs, restart coumadin after bronch. Received therapeutic dose of Lovenox on the morning of 01/14 but will hold any further doses for bronchoscopy tomorrow Total Time Total Time Spent Total Time Spent (In Minutes): 35 Total Time Includes: Examination of the Patient and Communication With Other Providers Discharge Plan Discharge Items Patient Disposition: Home - Self-Care Reason For Visit: SHORTNESS OF BREATH Discharge Diagnosis: Mucus plugs Discharge Goals: Decrease discomfort and Improve disease control Activity: Resume your previous activity Non-emergency contact: Primary Care Provider Call non-emergency contact if: you have any medication questions and your symptoms worsen Follow-up/Referrals: Ammon Roger PA-C [Physician Coal Chemist] - Jefe Adorno MD [Primary Care Provider] - Diet: Regular Addtl Provider Instructions: Though it is not listed in your medication list, please continue your prednisone taper per Mr. Roger's instructions. Additionally, please resume your warfarin tonight to restart your anticoagulation. If you have further shortness of breath, please call Santiago Roger's office. Prescriptions: Continued levothyroxine 25 mcg tablet 25 mcg PO QAM Qty: 90 RF: 3 multivitamin Tablet 1 tab PO QAM RF: 0 ascorbic acid (vitamin C) [Vitamin C] 1,000 mg Tablet 2,000 mg PO QAM RF: 0 meclizine 25 mg tablet 25 mg PO TID PRN (Reason: Dizziness) RF: 0 montelukast [Singulair] 10 mg Tablet 10 mg PO QAM RF: 0 azelastine 137 mcg (0.1 %) aerosol,spray 1 spray Intranasal QAM RF: 0 diltiazem HCl 60 mg Tablet 60 mg PO HS RF: 0 levalbuterol tartrate 45 mcg/actuation Hfa Aerosol Inhaler 3 inh INHALATION BID RF: 0 cholecalciferol (vitamin D3) [Vitamin D3] 1,000 unit Tablet 1,000 unit PO QAM RF: 0 calcium carbonate-vitamin D3 [Calcium 600 + D(3)] 600 mg(1,500mg) -400 unit Tablet 1 tab PO BID RF: 0 fexofenadine [Dilma Allergy] 180 mg Tablet 180 mg PO QAM RF: 0 omeprazole 20 mg Tablet,Delayed Release (Dr/Ec) 20 mg PO QAM RF: 0 Prolia 60 mg/mL Syringe 60 mg subcut Q6M RF: 0 lorazepam [Ativan] 0.5 mg Tablet 0.5 mg PO TID PRN (Reason: Anxiety) RF: 0 fluticasone propionate 50 mcg/actuation spray,suspension 2 spray intranasal HS RF: 0 cetirizine [Zyrtec] 10 mg Tablet 10 mg PO HS RF: 0 levalbuterol HCl 1.25 mg/3 mL solution for nebulization 1.25 mg inhalation Q4H PRN (Reason: Shortness Of Breath Or Wheezing) RF: 0 Trelegy Ellipta 100-62.5-25 mcg Blister With Device 1 inh INHALATION DAILY RF: 0 enoxaparin 80 mg/0.8 mL Syringe 80 mg SUBCUT DAILY RF: 0 diclofenac sodium 1 % Gel 4 g TOPICAL BID RF: 0 Stand-Alone Forms: [facility] Discharge Orders: Discharge Order (Routine); Ordered 01/15/19 Ordered By: Kasi Cates Admission Data Admit Date/Time: 01/13/19 23:08 Attending Provider: Kasi Cates Admit Provider: Kacey Mancilla Primary Care Provider: Jefe Adorno Other Providers: Sussy Bolaños ; Malik Kauffman Service: Medical Other Interventions: Discharge Summary Assessment (RN) Last Done: 01/15/19 15:47 DC Date/Time DO NOT enter until pt leaves facility: 01/15/19 16:30
== END 2019-01-15 16:30 | disposition home or self-care (01) ==
LOC: ED 18:15 → 4E 18:15 → SUATTDRO 23:08 → 4E 23:29

== ENCOUNTER 2019-03-22 18:17 | Observation (INO) ==
[2019-03-22] MEDS ORDERED: ALBUT/IPRATROP 3MG/0.5MG NEB 3 ML VIAL INH STA (18:35)
[2019-03-22 18:57] LABS: Basophils # (auto) 0.02 K/uL (0-0.2); Basophils % (auto) 0.6 %; Eosinophils # (auto) 0.05 K/uL (0-0.5); Eosinophils % (auto) 1.6 %; Hematocrit (blood only) 37.1 % (42-52); Hemoglobin 12.2 g/dL (14.0-18.0); Lymphocytes # (auto) 0.87 K/uL (1.2-3.4); Lymphocytes % (auto) 27.4 %; Mean Corpuscular Hgb Conc 32.9 g/dL (32-36); Mean Corpuscular Volume 80.5 fL (80-100); Mean Platelet Volume 9.2 fL (7.4-10.4); Monocytes # (auto) 0.37 K/uL (0.11-0.59); Monocytes % (auto) 11.7 %; Neutrophils # (auto) 1.86 K/uL (1.4-6.5); Neutrophils % (auto) 58.7 %; Platelet Count 163 K/uL (130-400); RDW Coefficient of Variation 20.3 % (11.5-14.5); RDW Standard Deviation 60.1 fL (36.4-46.3); Red Blood Count 4.61 M/uL (4.7-6.1); White Blood Count 3.17 K/uL (4.8-10.8)
--- NOTE | 2019-03-22 18:58 | Emergency Department Note ---
Entered by Chloe Mccormack acting as a scribe for History of Present Illness General Chief complaint: Shortness of Breath/Dyspnea Stated complaint: NOT BREATHING WELL Time Seen by Provider: 03/22/19 18:30 Source: patient History of Present Illness Onset (ago): minute(s) 45 Location: chest Pain Consistency: + other (worsening) Quality: + other (shortness of breath) Associated symptoms: + denies other symptoms (wheezing), + chest pain and + othe r (right leg pain, low voice); no cough and no fever/chills (fever) The patient is a 43 year old male who presents to the Emergency Room with complaints of worsening shortness of breath starting 45 minutes ago. The patient states that over the last few days he has had right leg pain that he believes is residual from his right hip replacement, chest pains, and difficulty breathing. He states that today he went to work and wasnt feeling the greatest. He reports that his voice has been low all day and he has been short of breath. He states that when he returned to work after dinner, it became much worse. He notes that he thinks it is his asthma as he feels like he cannot get enough air. The patient notes that he is on Coumadin for a history of a DVT and PE. The patient denies a cough, fever, and wheezing. Home Medications Home Medications Medication Instructions Recorded Confirmed Type ascorbic acid (vitamin C) [Vitamin 2,000 mg PO QAM 09/05/18 03/22/19 History C] azelastine 1 spray INTRANASAL QAM 09/05/18 03/22/19 History calcium carbonate-vitamin D3 1 tab PO BID 09/05/18 03/22/19 History [Calcium 600 + D(3)] cholecalciferol (vitamin D3) 1,000 unit PO QAM 09/05/18 03/22/19 History [Vitamin D3] levalbuterol tartrate 3 puff INHALATION BID 09/05/18 03/22/19 History montelukast [Singulair] 10 mg PO QAM 09/05/18 03/22/19 History multivitamin 1 tab PO QAM 09/05/18 03/22/19 History fexofenadine [Dilma Allergy] 180 mg PO QAM 09/18/18 03/22/19 History Prolia 60 mg SUBCUT Q6M 10/10/18 03/22/19 History lorazepam [Ativan] 0.5 mg PO TID PRN 10/10/18 03/22/19 History cetirizine [Zyrtec] 10 mg PO HS 12/18/18 03/22/19 History fluticasone propionate 2 spray INTRANASAL HS 12/18/18 03/22/19 History levalbuterol HCl 1.25 mg INHALATION Q4H PRN 12/18/18 03/22/19 History levothyroxine 25 mcg tablet 25 mcg PO QAM #90 tab 01/09/19 03/22/19 Rx Trelegy Ellipta 1 inh INHALATION DAILY 01/10/19 03/22/19 History diclofenac sodium 4 g TOPICAL BID PRN 01/13/19 03/22/19 History warfarin 10 mg tablet 12.5 mg PO 5XWK 02/27/19 03/22/19 History ipratropium bromide 0.02 % 3 ml INHALATION UD PRN #150 ml 03/08/19 03/22/19 History solution for inhalation epinephrine 0.3 mg/0.3 mL 0.3 mg IM Q15M PRN #2 ea 03/15/19 03/22/19 Rx injection, auto-injector omalizumab 150 mg subcutaneous 150 mg SQ .COMPLEX #1 ea 03/15/19 03/22/19 Rx solution tramadol 50 mg tablet 50 mg PO Q6H #30 tab 03/20/19 03/22/19 Rx meclizine 25 mg PO TID PRN 03/21/19 03/22/19 History omeprazole 40 mg PO DAILY 03/21/19 03/22/19 History warfarin [Coumadin] 15 mg PO 2XWK 03/22/19 03/22/19 History Allergies Allergy/AdvReac Type Severity Reaction Status Date / Time gluten Allergy Unknown STOMACH Verified 03/21/19 00:11 ISSUES Cipro AdvReac Intermediate issue with Verified 08/19/17 14:34 legs ciprofloxacin AdvReac Intermediate issue with Verified 03/21/19 00:11 legs oxycodone AdvReac Mild GI upset Verified 03/21/19 00:11 Past Med/Surg History Medical History Long-term (current) use of anticoagulants, INR goal 2.5-3.5 H/O lymphopenia (Resolved) History of undescended testicle (Resolved) History of wrist fracture (Resolved) Vitamin D deficiency (Acute) Venous insufficiency (Acute) Steroid-induced avascular necrosis of hip (Chronic) Mineral deficiency (Acute) Malaria (Acute) Low back pain (Acute) Hypogammaglobulinemia (Acute) Herpes zoster (Acute) Hearing loss (Acute) Dysfunction of both eustachian tubes (Acute) Degenerative joint disease (DJD) of hip (Acute) Chronic rhinitis (Acute) Chronic reflux esophagitis (Acute) Chronic deep vein thrombosis of popliteal vein (Acute) Back pain (Acute) Allergy (Acute) Avascular necrosis of hip Osteoporosis GERD (gastroesophageal reflux disease) (Chronic) Asthma (Chronic) Bronchiectasis FOLLOWS WITH PULMONARY Dextroscoliosis Hearing deficit HEARING AIDS Hx of deep venous thrombosis 2016 Hx pulmonary embolism 2016 Hypothyroidism Pectus excavatum Surgical History History of placement of ear tubes (Acute) left ear History of ear surgery X4 Hx of hemorrhoidectomy Family History Mother Osteoporosis Father Coronary heart disease Prostate cancer Unknown Prostate cancer Other Diabetes Heart disease Social History Preferred Language: Citizen Of [place] Communication Ability: Effective Asset Management Lead Required: No Beliefs That Will Affect Care: None marital status: Current Living Situation: Spouse and Family current occupational status: employed Feels Safe at Home: Yes Smoking Status: Never smoker Second Hand Exposure: No ; Hx Alcohol Use: No Hx Substance Use: No Review of Systems See HPI for pertinent positives & negatives. and A total of 10 systems reviewed and were otherwise negative Physical Exam Vital Signs Vital Signs - 24 hr 03/22/19 17:36 03/22/19 18:27 03/22/19 18:33 Temperature 36.8 C Temperature Source Oral Sepsis Recent Fever Within 48 Hours No Sepsis New/Unexplained Change in Mental Status No Sepsis Action Taken by Nursing No Action Required Pulse Rate 70 95 H Pulse Rate [Right Radial] Pulse Rate from SpO2 Sensor 75 Pulse Rhythm Regular Pulse Strength Normal Respiratory Rate 26 H 28 H Respiratory Effort / Characteristics Non-Labored Spontaneous Respiratory Depth Normal Respiratory Pattern Regular Blood Pressure 129/78 112/67 Blood Pressure Mean 95 82 Blood Pressure Position Sitting Pulse Oximetry 100 99 97 Oxygen Delivery Method Room Air Room Air 03/22/19 18:46 03/22/19 18:51 03/22/19 19:00 Temperature Temperature Source Sepsis Recent Fever Within 48 Hours Sepsis New/Unexplained Change in Mental Status Sepsis Action Taken by Nursing Pulse Rate 90 93 H Pulse Rate [Right Radial] 87 Pulse Rate from SpO2 Sensor 88 92 H Pulse Rhythm Pulse Strength Respiratory Rate 18 17 25 H Respiratory Effort / Characteristics Non-Labored Spontaneous Respiratory Depth Respiratory Pattern Blood Pressure Blood Pressure Mean Blood Pressure Position Pulse Oximetry 97 97 94 Oxygen Delivery Method Room Air Room Air 03/22/19 19:10 03/22/19 19:23 03/22/19 19:30 Temperature Temperature Source Sepsis Recent Fever Within 48 Hours Sepsis New/Unexplained Change in Mental Status Sepsis Action Taken by Nursing Pulse Rate 89 89 80 Pulse Rate [Right Radial] Pulse Rate from SpO2 Sensor 86 84 78 Pulse Rhythm Pulse Strength Respiratory Rate 33 H 27 H 23 Respiratory Effort / Characteristics Respiratory Depth Respiratory Pattern Blood Pressure Blood Pressure Mean Blood Pressure Position Pulse Oximetry 98 97 98 Oxygen Delivery Method 03/22/19 19:40 03/22/19 19:50 03/22/19 20:00 Temperature Temperature Source Sepsis Recent Fever Within 48 Hours Sepsis New/Unexplained Change in Mental Status Sepsis Action Taken by Nursing Pulse Rate 84 88 88 Pulse Rate [Right Radial] Pulse Rate from SpO2 Sensor 82 78 88 Pulse Rhythm Pulse Strength Respiratory Rate 16 19 16 Respiratory Effort / Characteristics Respiratory Depth Respiratory Pattern Blood Pressure Blood Pressure Mean Blood Pressure Position Pulse Oximetry 96 93 95 Oxygen Delivery Method 03/22/19 20:21 Temperature Temperature Source Sepsis Recent Fever Within 48 Hours Sepsis New/Unexplained Change in Mental Status Sepsis Action Taken by Nursing Pulse Rate Pulse Rate [Right Radial] Pulse Rate from SpO2 Sensor 82 Pulse Rhythm Pulse Strength Respiratory Rate Respiratory Effort / Characteristics Respiratory Depth Respiratory Pattern Blood Pressure Blood Pressure Mean Blood Pressure Position Pulse Oximetry 96 Oxygen Delivery Method GENERAL: Patient is in no acute distress. HEENT: No acute trauma, normocephalic atraumatic, mucous membranes moist, no nasal congestion, no scleral icterus. NECK: No stridor, no adenopathy, no meningismus, trachea is midline. LUNGS: Decreased breath sounds. No wheezing. Increased respiratory rate. Equal breath sounds. HEART: Without murmurs gallops or rubs, regular rate and rhythm. ABDOMEN: Soft, nontender, bowel sounds positive, no hernias, no peritonitis. EXTREMITIES: Significant venous discoloration noted to LE. No cyanosis or edema, full range of motion of all the joints without pain or difficulty, no signs for acute trauma. NEUROLOGIC: Oriented x 3, no acute motor or sensory deficits, no focal weakness. SKIN: No rash, no jaundice, no diaphoresis. Course 1830: Past medical records reviewed. The patient was evaluated in room A2. A complete history and physical exam was performed. 1835: I reviewed the EMR at this time. The patient was seen here on the of this month and had an ultrasound of the RLE. There was no clot noted. His chest x-ray at that time was clear as well. 1914: I reevaluated the patient and he is looking a little better, but he still feels short of breath. 2004: I reevaluated the patient and he still looks short of breath. His states that he gets short of breath even just walking to the bathroom and she doesn't feel comfortable taking him home. He notes that he gets intermittent chest pains. I updated them on his test results thus far and the treatment plan. They verbally agree and understand. The patient will be sent for a CT of his chest at this time. 2007: I discussed the patient's case with Dr. Amber GARCIA Hospitalist. He will evaluate the patient for further management. Consultations Consultation #1: I discussed the patient's case with Dr. Amber GARCIA Hospitalist. He will evaluate the patient for further management. Time: 20:08 Administered Medications Ioversol (Optiray 320 125ml) 120 ml IV ONCE PRN PRN Reason: Interaction Checking Stop: 03/26/19 20:08 Last Admin: 03/22/19 20:09 Dose: 120 ml Documented by: [id number] Discontinued Medications Albuterol (Duoneb) 3 ml INH NOW STA Stop: 03/22/19 18:36 Last Admin: 03/22/19 18:43 Dose: 3 ml Documented by: [id number] Medical Decision Making Differential Diagnosis Differential diagnoses include anxiety, asthma, bronchospasms, anemia, CHF, pneumonia, OK, electrolyte imbalance, PE. Medical Records Attestation: I reviewed the patient's medical records. Home Medications Current Medication List: was personally reviewed by me Laboratory Data Attestation: I reviewed the patient's lab results. Result diagrams: 03/22/19 18:48 03/22/19 18:48 Lab Results 03/22/19 03/22/19 03/22/19 Range/Units 18:48 18:48 18:48 WBC 3.17 L (4.8-10.8) K/uL RBC 4.61 L (4.7-6.1) M/uL Hgb 12.2 L (14.0-18.0) g/dL Hct 37.1 L (42-52) % MCV 80.5 (80-100) fL MCH 26.5 (25-34) pg MCHC 32.9 (32-36) g/dL RDW Std Deviation 60.1 H (36.4-46.3) fL RDW Coeff of Ligia 20.3 H (11.5-14.5) % Plt Count 163 (130-400) K/uL MPV 9.2 (7.4-10.4) fL Immature Gran % (Auto) 0.0 % Neut % (Auto) 58.7 % Lymph % (Auto) 27.4 % Walton % (Auto) 11.7 % Eos % (Auto) 1.6 % Baso % (Auto) 0.6 % Immature Gran # (Auto) 0.00 (0.00-0.02) K/uL Neut # (Auto) 1.86 (1.4-6.5) K/uL Lymph # (Auto) 0.87 L (1.2-3.4) K/uL Walton # (Auto) 0.37 (0.11-0.59) K/uL Eos # (Auto) 0.05 (0-0.5) K/uL Baso # (Auto) 0.02 (0-0.2) K/uL Anisocytosis Present Ovalocytes 1+ PT 19.3 H (9.0-12.0) Seconds INR 2.0 H (0.9-1.1) APTT 32.5 H (21.0-31.0) Seconds PTT Ratio 1.2 Sodium 142 (136-145) mmol/L Potassium 3.5 (3.5-5.1) mmol/L Chloride 107 (98-107) mmol/L Carbon Dioxide 27 (21-32) mmol/L Anion Gap 8.0 (3-11) BUN 13 (7-18) mg/dl Creatinine 0.79 (0.6-1.4) mg/dl Est Cr Clr Drug Dosing 115.4 ml/min Est GFR ( Amer) 126.6 Est GFR (Non-Af Amer) 109.2 BUN/Creatinine Ratio 16.6 (10-20) Glucose 107 H (70-99) mg/dl Calcium 9.0 (8.5-10.1) mg/dl Magnesium 1.9 (1.8-2.4) mg/dl Total Bilirubin 0.6 (0.2-1) mg/dl AST 18 (15-37) U/L ALT 29 (12-78) U/L Alkaline Phosphatase 62 (45-117) U/L Troponin I < 0.015 (0-0.045) ng/ml Total Protein 7.1 (6.4-8.2) gm/dl Albumin 3.9 (3.4-5.0) gm/dl Globulin 3.2 (2.5-4.0) gm/dl Albumin/Globulin Ratio 1.2 (0.9-2) Imaging Data Radiologist's Impression: Radiology results as stated below per my review and the radiologist's interpretation: XR chest 1V portable CLINICAL HISTORY: Shortness of breath COMPARISON STUDY: 03/20/2019 FINDINGS: There is a mild scoliosis. The study is rotated. The heart is at the upper limits of normal in size. There is no failure. There is no lobar consolidation. There is mild chronic interstitial thickening.[ IMPRESSION: No active disease in the chest. Electronically signed by: Venu Jackman M.D. 03/22/2019 6:[address]: Pending. ECG Data Attestation: I personally reviewed and interpreted this ECG as follows: Indication: SOB/dyspnea Rate (beats per minute): 88 Rhythm: normal sinus Findings: no PVC and no ST elevation Blood Pressure Blood Pressure Findings: Normal blood pressure Blood Pressure Disposition: did not require urgent referral MDM Narrative There is a lower white blood cell count at 3. This is baseline for the patient looking back at previous testing. The patient is anemic but this is also baseline. INR is therapeutic for someone on Coumadin. No significant electrolyte abnormality. No concerning liver enzyme elevation. EKG shows a sinus rhythm, no acute ischemia. Cardiac enzyme testing x1 is not consistent with acute cardiac injury. Chest film shows some cardiomegaly. There was no pneumonia or pneumothorax, no CHF. On exam, the patient did seem dyspneic, he had an elevated respiratory rate. He had diminished breath sounds. The patient was given a DuoNeb, he had no improvement. He still felt quite short of breath and when he would walk to the bathroom, his dyspnea worsened. I did review the patient's records, he was in the hospital in January for dyspnea. He required a bronchoscopy for mucous plugging. After the bronchoscopy, he was markedly improved. I have ordered for a chest CT. This will help with the diagnosis of PE versus pneumonia. I do not think I can send the patient home as he is quite dyspneic here just sitting still. I suspect the dyspnea is multifactorial. Further work-up in the hospital, further care in the hospital is required. I spoke to the patient, I talked with case management. The on-call hospitalist was consulted. Impression & Plan Respiratory distress, Tachypnea, History of COPD Discharge Plan Visit Data Chief Complaint: Shortness of Breath/Dyspnea Stated Complaint: NOT BREATHING WELL ED Provider: Kyler Goldman Discharge Problem: Respiratory distress, Tachypnea, History of COPD Patient Disposition: Being Evaluated by Hospitalist Forms Stand Alone Forms: My [facility] [place] [facility] Prescriptions Prescriptions: No Action levothyroxine 25 mcg tablet 25 mcg PO QAM Qty: 90 RF: 3 tramadol 50 mg tablet 50 mg PO Q6H Qty: 30 RF: 0 epinephrine [EpiPen 2-Dustin] 0.3 mg/0.3 mL auto-injector 0.3 mg IM Q15M PRN (Reason: anaphylaxis) Qty: 2 RF: 0 Xolair 150 mg recon soln 150 mg SQ .COMPLEX Qty: 1 RF: 0 ipratropium bromide 0.02 % solution 3 ml inhalation UD PRN (Reason: Shortness Of Breath Or Wheezing) Qty: 150 RF: 0 warfarin 10 mg tablet 12.5 mg PO 5XWK RF: 0 multivitamin Tablet 1 tab PO QAM RF: 0 ascorbic acid (vitamin C) [Vitamin C] 1,000 mg Tablet 2,000 mg PO QAM RF: 0 montelukast [Singulair] 10 mg Tablet 10 mg PO QAM RF: 0 azelastine 137 mcg (0.1 %) aerosol,spray 1 spray Intranasal QAM RF: 0 levalbuterol tartrate 45 mcg/actuation Hfa Aerosol Inhaler 3 puff INHALATION BID RF: 0 cholecalciferol (vitamin D3) [Vitamin D3] 1,000 unit Tablet 1,000 unit PO QAM RF: 0 calcium carbonate-vitamin D3 [Calcium 600 + D(3)] 600 mg(1,500mg) -400 unit Tablet 1 tab PO BID RF: 0 fexofenadine [Dilma Allergy] 180 mg Tablet 180 mg PO QAM RF: 0 omeprazole 40 mg capsule,delayed release(DR/EC) 40 mg PO DAILY RF: 0 meclizine 25 mg tablet 25 mg PO TID PRN (Reason: Dizziness Or Vertigo) RF: 0 warfarin [Coumadin] 10 mg tablet 15 mg PO 2XWK RF: 0 Prolia 60 mg/mL Syringe 60 mg subcut Q6M RF: 0 lorazepam [Ativan] 0.5 mg Tablet 0.5 mg PO TID PRN (Reason: Anxiety) RF: 0 fluticasone propionate 50 mcg/actuation spray,suspension 2 spray intranasal HS RF: 0 cetirizine [Zyrtec] 10 mg Tablet 10 mg PO HS RF: 0 levalbuterol HCl 1.25 mg/3 mL solution for nebulization 1.25 mg inhalation Q4H PRN (Reason: Shortness Of Breath Or Wheezing) RF: 0 Trelegy Ellipta 100-62.5-25 mcg Blister With Device 1 inh INHALATION DAILY RF: 0 diclofenac sodium 1 % Gel 4 g TOPICAL BID PRN (Reason: Pain) RF: 0 Referrals Referrals: Jefe Adorno MD [Primary Care Provider] - The purnimaibe's documentation has been prepared under my direction and personally reviewed by me in its entirety. I confirm that the note above accurately reflects all work, treatment, procedures, and medical decision making performed by me.
--- NOTE | 2019-03-22 19:01 | XRay Report ---
XR chest 1V portable CLINICAL HISTORY: Shortness of breath COMPARISON STUDY: 03/20/2019 FINDINGS: There is a mild scoliosis. The study is rotated. The heart is at the upper limits of normal in size. There is no failure. There is no lobar consolidation. There is mild chronic interstitial th ickening.[ IMPRESSION: No active disease in the chest. Electronically signed by: Venu Jackman M.D. 03/22/2019 6:59 PM
[2019-03-22 19:08] LABS: Partial Thromboplastin Ratio 1.2; Partial Thromboplastin Time 32.5 Seconds (21.0-31.0); Prothrombin Time 19.3 Seconds (9.0-12.0)
[2019-03-22 19:12] LABS: Alanine Aminotransferase 29 U/L (12-78); Albumin Level 3.9 gm/dl (3.4-5.0); Aspartate Aminotransferase 18 U/L (15-37); BUN Creatinine Ratio 16.6 (10-20); Blood Urea Nitrogen 13 mg/dl (7-18); Carbon Dioxide 27 mmol/L (21-32); Chloride 107 mmol/L (98-107); Creatinine Clr Calc Pharmacy 115.4 ml/min; Est GFR (African American) 126.6; Est GFR (Non-African American) 109.2; Glucose 107 mg/dl (70-99); Magnesium 1.9 mg/dl (1.8-2.4); Potassium 3.5 mmol/L (3.5-5.1); Sodium 142 mmol/L (136-145)
[2019-03-22 19:17] LABS: Albumin Globulin Ratio 1.2 (0.9-2); Alkaline Phosphatase 62 U/L (45-117); Bilirubin,Total 0.6 mg/dl (0.2-1); Globulin 3.2 gm/dl (2.5-4.0); Total Protein 7.1 gm/dl (6.4-8.2); Troponin I < 0.015 ng/ml (0-0.045)
[2019-03-22 19:36] LABS: Anisocytosis Present; Ovalocytes 1+
[2019-03-22] MEDS ORDERED: OPTIRAY 320 125ml IV PRN (20:09)
--- NOTE | 2019-03-22 20:44 | CT Scan Report ---
CT ANGIOGRAM OF THE CHEST CLINICAL HISTORY: Shortness of breath. Possible pulmonary embolism. COMPARISON STUDY: November 07, 2018 TECHNIQUE: Following the IV administration of 120 mL of Optiray-320, CT angiogram of the thorax was p erformed from the thoracic inlet to the lung bases utilizing the pulmonary embolus protocol. Images a re reviewed in the axial, sagittal, and coronal planes. IV contrast was administered without complica tion. MIP imaging was performed. A dose lowering technique was utilized adhering to the principles o f ALARA. CT DOSE: 294.05 mGy.cm FINDINGS: No pathologically enlarged axillary mediastinal or hilar lymph nodes were visualized. There was no evidence of thoracic aortic dilatation. There were no pulmonary artery filling defects to indicate acute pulmonary embolism. No pleural effusions are visualized. There is a pectus deformity. There is persistent basilar dependent atelectasis/scarring. There is osmar pical scarring. There is mild cylindrical bronchiectasis. There is a scoliosis and old vertebral body compression deformities. IMPRESSION: 1. No evidence of acute pulmonary embolism 2. Persistent dependent atelectasis/scarring 3. Persistent pectus excavatum deformity with scoliosis and old vertebral body compression deformitie s 4. Minor cylindrical bronchiectasis Electronically signed by: Venu Jackman M.D. 03/22/2019 8:42 PM
--- NOTE | 2019-03-22 22:01 | XRay Report ---
XR knee RT 3V CLINICAL HISTORY: Right knee pain COMPARISON: None. DISCUSSION: No acute fractures or dislocations are visualized. There is minimal lateral patellar tilt . The bones appear mildly osteopenic given the patient's age. IMPRESSION: Suspected osteopenia. No acute fractures. Electronically signed by: Venu Jackman M.D. 03/22/2019 9:59 PM
--- NOTE | 2019-03-22 22:02 | XRay Report ---
XR hip RT 2-3V w pelvis CLINICAL HISTORY: Right hip pain COMPARISON: 10/10/2018 DISCUSSION: There is contrast present within the bladder. There are postsurgical changes of a total r ight hip arthroplasty. No fractures or dislocations are visualized. IMPRESSION: 1. Total right hip arthroplasty 2. No fractures or dislocations identified Electronically signed by: Venu Jackman M.D. 03/22/2019 10:00 PM
[2019-03-22] MEDS: predniSONE 20 MG TAB PO SCH (22:11)
--- NOTE | 2019-03-22 22:13 | History & Physical Report ---
Date of Service March 22, 2019 Assessment & Plan (1) Leg pain, right: Patient with both right hip and right knee pain. Breathing more labored after manipulating right hip. check crp, esr check knee and hip xray tramadol / diclofenac and scheduled tylenol (2) Dyspnea: CTA negative for PE or infiltrative disease Prednisone 40mg daily continue xopenex / fluticasone / dilma / zyrtec / ipratropium / singulair (3) Long-term (current) use of anticoagulants, INR goal 2.5-3.5: continue coumadin. check inr in am (4) History of COPD: continue xopenex / fluticasone / dilma / zyrtec / ipratropium / singulair (5) Chronic deep vein thrombosis of popliteal vein: continue coumadin check INR in AM (6) Chronic pain syndrome: prednisone / tramadol / diclofenac and scheduled tylenol History of Present Illness Chief Complaint: Dyspnea, right knee pain Primary Care Provider: Barrington Adorno MD This is a 43-year-old male presents emergency room with complaints of worsening shortness of breath approximately 6 PM. Patient in general is not been feeling well over the last several days. Was seen in the ER for leg pain and Dopplers were negative. Patient returned from dinner this evening and was having a hard time breathing. On arrival to ER patients o2 sats were normal. They drop down to 87% with activity but come right back to normal. Patient thinks it is his asthma because he is having a hard time getting air in. His does not feel like this is presenting like his asthma. He has not sounded congested and there has been no wheezing. Both patient and his continue to talk about how bad right leg pain is. Patient states it is both right hip and knee. Patient had right hip replacement by Dr. Perry October 10, 2018. A few weeks after surgery patients knee pain was so bad Dr. Perry gave him a shot which seemed to help for 2-3 months. He was doing well until about the end of January when his knee began to hurt again. He received another shot in his knee, this time with no relief. Patients knee has progressively been causing more pain. He was started on tramadol by his PCP which brings pain down to 5/10. Allergies Allergy/AdvReac Type Severity Reaction Status Date / Time gluten Allergy Unknown STOMACH Verified 03/21/19 00:11 ISSUES Cipro AdvReac Intermediate issue with Verified 08/19/17 14:34 legs ciprofloxacin AdvReac Intermediate issue with Verified 03/21/19 00:11 legs oxycodone AdvReac Mild GI upset Verified 03/21/19 00:11 Home Medications Home Medications Medication Instructions Recorded Confirmed Type ascorbic acid (vitamin C) [Vitamin 2,000 mg PO QAM 09/05/18 03/22/19 History C] azelastine 1 spray INTRANASAL QAM 09/05/18 03/22/19 History calcium carbonate-vitamin D3 1 tab PO BID 09/05/18 03/22/19 History [Calcium 600 + D(3)] cholecalciferol (vitamin D3) 1,000 unit PO QAM 09/05/18 03/22/19 History [Vitamin D3] levalbuterol tartrate 3 puff INHALATION BID 09/05/18 03/22/19 History montelukast [Singulair] 10 mg PO QAM 09/05/18 03/22/19 History multivitamin 1 tab PO QAM 09/05/18 03/22/19 History fexofenadine [Dilma Allergy] 180 mg PO QAM 09/18/18 03/22/19 History Prolia 60 mg SUBCUT Q6M 10/10/18 03/22/19 History lorazepam [Ativan] 0.5 mg PO TID PRN 10/10/18 03/22/19 History cetirizine [Zyrtec] 10 mg PO HS 12/18/18 03/22/19 History fluticasone propionate 2 spray INTRANASAL HS 12/18/18 03/22/19 History levalbuterol HCl 1.25 mg INHALATION Q4H PRN 12/18/18 03/22/19 History levothyroxine 25 mcg tablet 25 mcg PO QAM #90 tab 01/09/19 03/22/19 Rx Trelegy Ellipta 1 inh INHALATION DAILY 01/10/19 03/22/19 History diclofenac sodium 4 g TOPICAL BID PRN 01/13/19 03/22/19 History warfarin 10 mg tablet 12.5 mg PO 5XWK 02/27/19 03/22/19 History ipratropium bromide 0.02 % 3 ml INHALATION UD PRN #150 ml 03/08/19 03/22/19 History solution for inhalation epinephrine 0.3 mg/0.3 mL 0.3 mg IM Q15M PRN #2 ea 03/15/19 03/22/19 Rx injection, auto-injector omalizumab 150 mg subcutaneous 150 mg SQ .COMPLEX #1 ea 03/15/19 03/22/19 Rx solution tramadol 50 mg tablet 50 mg PO Q6H #30 tab 03/20/19 03/22/19 Rx meclizine 25 mg PO TID PRN 03/21/19 03/22/19 History omeprazole 40 mg PO DAILY 03/21/19 03/22/19 History warfarin [Coumadin] 15 mg PO 2XWK 03/22/19 03/22/19 History Past Med/Surg History Medical History Long-term (current) use of anticoagulants, INR goal 2.5-3.5 H/O lymphopenia (Resolved) History of undescended testicle (Resolved) History of wrist fracture (Resolved) Vitamin D deficiency (Acute) Venous insufficiency (Acute) Steroid-induced avascular necrosis of hip (Chronic) Mineral deficiency (Acute) Malaria (Acute) Low back pain (Acute) Hypogammaglobulinemia (Acute) Herpes zoster (Acute) Hearing loss (Acute) Dysfunction of both eustachian tubes (Acute) Degenerative joint disease (DJD) of hip (Acute) Chronic rhinitis (Acute) Chronic reflux esophagitis (Acute) Chronic deep vein thrombosis of popliteal vein (Acute) Back pain (Acute) Allergy (Acute) Avascular necrosis of hip Osteoporosis GERD (gastroesophageal reflux disease) (Chronic) Asthma (Chronic) Bronchiectasis FOLLOWS WITH PULMONARY Dextroscoliosis Hearing deficit HEARING AIDS Hx of deep venous thrombosis 2016 Hx pulmonary embolism 2016 Hypothyroidism Pectus excavatum Surgical History History of placement of ear tubes (Acute) left ear History of ear surgery X4 Hx of hemorrhoidectomy Family History Mother Osteoporosis Father Coronary heart disease Prostate cancer Unknown Prostate cancer Other Diabetes Heart disease Social History Preferred Language: Occitan Communication Ability: Effective Regeneration Operator Required: No Beliefs That Will Affect Care: None marital status: Current Living Situation: Spouse and Family current occupational status: employed Other Information That Helps Us Care for You: No Feels Safe at Home: Yes Safety Concerns: Feels Safe At This Time Smoking Status: Never smoker Second Hand Exposure: No ; Hx Alcohol Use: No Hx Substance Use: No Review of Systems Review of Systems: All systems reviewed & are unremarkable except as noted in HPI & below Physical Exam Constitutional: well developed and + ill appearing Eyes: PERRL, conjunctivae normal, anicteric sclerae ENMT: Ears: + hearing impairment (hearing aids) Neck: trachea midline, no thyromegaly Respiratory: clear breath sounds b/l with decreased air movement Cardiovascular: RRR, no murmur, no edema Gastrointestinal (Abdomen): normal bowel sounds, soft, nontender, no hepatosplenomegaly Musculoskeletal: right hip pain with ext rotation and flexion lateral knee pain with palpation Skin: no rashes, warm and dry Neurologic: awake; not confused Psychiatric: A+Ox3, euthymic affect Results & Data Vital Signs (Past 12 Hours) Vital Signs Temp Pulse Pulse Resp BP Pulse Ox 03/22/19 20:22 86 19 104/69 96 03/22/19 20:21 96 03/22/19 20:00 88 16 95 03/22/19 19:50 88 19 93 03/22/19 19:40 84 16 96 03/22/19 19:30 80 23 98 03/22/19 19:23 89 27 H 97 03/22/19 19:10 89 33 H 98 03/22/19 19:00 93 H 25 H 94 03/22/19 18:51 90 17 97 03/22/19 18:46 87 18 97 03/22/19 18:33 97 03/22/19 18:27 36.8 C 95 H 28 H 112/67 99 03/22/19 17:36 70 26 H 129/78 100 Laboratory Results 03/22/19 03/22/19 03/22/19 Range/Units 18:48 18:48 18:48 WBC (4.8-10.8) K/uL RBC (4.7-6.1) M/uL Hgb (14.0-18.0) g/dL Hct (42-52) % MCV (80-100) fL MCH (25-34) pg MCHC (32-36) g/dL RDW Std Deviation (36.4-46.3) fL RDW Coeff of Ligia (11.5-14.5) % Plt Count (130-400) K/uL MPV (7.4-10.4) fL Immature Gran % (Auto) % Neut % (Auto) % Lymph % (Auto) % Walton % (Auto) % Eos % (Auto) % Baso % (Auto) % Immature Gran # (Auto) (0.00-0.02) K/uL Neut # (Auto) (1.4-6.5) K/uL Lymph # (Auto) (1.2-3.4) K/uL Walton # (Auto) (0.11-0.59) K/uL Eos # (Auto) (0-0.5) K/uL Baso # (Auto) (0-0.2) K/uL Anisocytosis Ovalocytes ESR Pending PT (9.0-12.0) Seconds INR (0.9-1.1) APTT (21.0-31.0) Seconds PTT Ratio Sodium 142 (136-145) mmol/L Potassium 3.5 (3.5-5.1) mmol/L Chloride 107 (98-107) mmol/L Carbon Dioxide 27 (21-32) mmol/L Anion Gap 8.0 (3-11) BUN 13 (7-18) mg/dl Creatinine 0.79 (0.6-1.4) mg/dl Est Cr Clr Drug Dosing 115.4 ml/min Est GFR ( Amer) 126.6 Est GFR (Non-Af Amer) 109.2 BUN/Creatinine Ratio 16.6 (10-20) Glucose 107 H (70-99) mg/dl Calcium 9.0 (8.5-10.1) mg/dl Magnesium 1.9 (1.8-2.4) mg/dl Total Bilirubin 0.6 (0.2-1) mg/dl AST 18 (15-37) U/L ALT 29 (12-78) U/L Alkaline Phosphatase 62 (45-117) U/L Troponin I < 0.015 (0-0.045) ng/ml C-Reactive Protein < 0.29 (0-0.29) mg/dl Total Protein 7.1 (6.4-8.2) gm/dl Albumin 3.9 (3.4-5.0) gm/dl Globulin 3.2 (2.5-4.0) gm/dl Albumin/Globulin Ratio 1.2 (0.9-2) 03/22/19 03/22/19 Range/Units 18:48 18:48 WBC 3.17 L (4.8-10.8) K/uL RBC 4.61 L (4.7-6.1) M/uL Hgb 12.2 L (14.0-18.0) g/dL Hct 37.1 L (42-52) % MCV 80.5 (80-100) fL MCH 26.5 (25-34) pg MCHC 32.9 (32-36) g/dL RDW Std Deviation 60.1 H (36.4-46.3) fL RDW Coeff of Ligia 20.3 H (11.5-14.5) % Plt Count 163 (130-400) K/uL MPV 9.2 (7.4-10.4) fL Immature Gran % (Auto) 0.0 % Neut % (Auto) 58.7 % Lymph % (Auto) 27.4 % Walton % (Auto) 11.7 % Eos % (Auto) 1.6 % Baso % (Auto) 0.6 % Immature Gran # (Auto) 0.00 (0.00-0.02) K/uL Neut # (Auto) 1.86 (1.4-6.5) K/uL Lymph # (Auto) 0.87 L (1.2-3.4) K/uL Walton # (Auto) 0.37 (0.11-0.59) K/uL Eos # (Auto) 0.05 (0-0.5) K/uL Baso # (Auto) 0.02 (0-0.2) K/uL Anisocytosis Present Ovalocytes 1+ ESR PT 19.3 H (9.0-12.0) Seconds INR 2.0 H (0.9-1.1) APTT 32.5 H (21.0-31.0) Seconds PTT Ratio 1.2 Sodium (136-145) mmol/L Potassium (3.5-5.1) mmol/L Chloride (98-107) mmol/L Carbon Dioxide (21-32) mmol/L Anion Gap (3-11) BUN (7-18) mg/dl Creatinine (0.6-1.4) mg/dl Est Cr Clr Drug Dosing ml/min Est GFR ( Amer) Est GFR (Non-Af Amer) BUN/Creatinine Ratio (10-20) Glucose (70-99) mg/dl Calcium (8.5-10.1) mg/dl Magnesium (1.8-2.4) mg/dl Total Bilirubin (0.2-1) mg/dl AST (15-37) U/L ALT (12-78) U/L Alkaline Phosphatase (45-117) U/L Troponin I (0-0.045) ng/ml C-Reactive Protein (0-0.29) mg/dl Total Protein (6.4-8.2) gm/dl Albumin (3.4-5.0) gm/dl Globulin (2.5-4.0) gm/dl Albumin/Globulin Ratio (0.9-2) Diagnostic Findings cta - negative for pe Code Status & VTE Plan Code Status Full code VTE Prophylaxis Plan VTE Prophylaxis will be ordered: Yes Supervising Physician Co-Signing Physician Notes Attending Attestation and Admission Note - Pt seen/examined, chart reviewed, admission care plan d/w Dr Laz Wray. I agree w/ the go components of his admission documentation. 43yo male - well known to me from prior hospital stays - with restrictive lung disease from severe pectus deformity & scoliosis - along with COPD, h/o PE - presenting with dyspnea, right hip pain and right knee pain. Was at work today when he developed severe dyspnea acutely. This was in the context of severe right knee pain. Recounts seeing Dr Perry from orthopedics several times this spring. Had right THR earlier this year for AVN. Since that surgery he has had ongoing right knee pain - initially responsive to intra-articular steroid injection, but most recent injection was not helpful. Tramadol helps but other agents have not helped. Despite dyspnea he denies cough, congestion, or wheezing. PMH, PSH, allergies, meds, sochx, famhx, ros - reviewed VSS o2 sats wnl gen - dysmorphic in appearance, "quiet" tachypnea but no distress neck - no JVD heart - RRR s1 s2 no murmur lungs - mildly decreased BS but no wheeze or rales abd - soft, protuberant, BS+, NT ext - right hip - passive ROM is full but this reproduces lateral hip pain; mildly tender over trochanteric bursal area; right knee -minimal crepitus with translation of patella; no effusion; full ROM present w/o pain; trace ankle edema; pulses 2+ b/l labs, CTA chest noted EKG with no ST changes A/P: 1. dyspnea in setting of known restrictive lung disease, COPD, and mild ILD; CTA chest w/o acute findings. 2. right hip pain s/p THR 2019. 3. right knee pain. check sed rate, crp, knee and hip films on right. knee pain could be referred pain from right hip. alternatively could his scoliosis cause his current symptoms? uncertain about #1 above - due to pain? mild COPD exacerbation? other? plan - prednisone for #1, #2, #3. voltaren gel for knee. ortho consult with Dr Perry. tramadol prn. inhalers, etc. Abel Gunter MD PG Care Time/CCT Total # of Minutes Spent Total Time Spent with Patient: Total time spent is greater than 50% in coordination of care (as documented) at patient's floor/unit and/or counseling patient:60min (1) Dyspnea Dyspnea type: unspecified Qualified Code(s): R06.00 - Dyspnea, unspecified
[2019-03-22] MEDS ORDERED: EPINEPHRINE ADULT AUTO-INJECT 0.3 MG SYR IM PRN (22:41)
[2019-03-22] MEDS ORDERED: MECLIZINE HCL 25 MG TAB PO PRN (22:41)
[2019-03-22] MEDS ORDERED: DICLOFENAC SOD 1% GEL 100 GM TUBE EXT PRN (22:41)
[2019-03-22] MEDS ORDERED: LORazepam 0.5 MG TAB PO PRN (22:41)
[2019-03-22] MEDS: TRAMADOL HCL 50 MG TABLET PO SCH (23:44)
[2019-03-23] MEDS: LEVOTHYROXINE SODIUM 25 MCG TABLET PO SCH (05:23)
[2019-03-23] MEDS: TRAMADOL HCL 50 MG TABLET PO SCH ×3 (05:23→17:41)
[2019-03-23] MEDS: IPRATROPIUM BROMIDE NEB SOLN 0.02% 2.5 ML VIAL INH PRN ×2 (06:28→12:20)
[2019-03-23] MEDS: LEVALBUTEROL HCL 1.25 MG/3 ML NEB INH PRN ×2 (06:33→12:20)
[2019-03-23 07:20] LABS: INR 1.7 (0.9-1.1); Prothrombin Time 16.4 Seconds (9.0-12.0)
[2019-03-23] MEDS: LEVALBUTEROL TARTRATE 15 GM HFA.AER.AD INH SCH ×2 (08:08→20:34)
[2019-03-23] MEDS: [UNRECOGNIZED DRUG - OTHER] SCH (08:09)
[2019-03-23] MEDS: FEXOFENADINE HCL 180 MG TAB PO SCH (08:10)
[2019-03-23] MEDS: MULTIVITAMIN TAB PO SCH (08:11)
[2019-03-23] MEDS: MONTELUKAST SODIUM 10 MG TABLET PO SCH (08:11)
[2019-03-23] MEDS: PANTOprazole 40 MG TAB PO SCH (08:11)
[2019-03-23] MEDS: CHOLECALCIFEROL 1,000 UNITS TAB PO SCH (08:12)
[2019-03-23] MEDS: ASCORBIC ACID 500 MG TAB PO SCH (08:12)
[2019-03-23] MEDS: CALCIUM 600MG + VIT D 400 IU TAB PO SCH ×2 (08:13→20:35)
[2019-03-23] MEDS: ACETAMINOPHEN 500 MG TAB PO SCH ×3 (08:14→20:34)
[2019-03-23] MEDS ORDERED: ACETAMINOPHEN 325 MG TAB PO SCH (09:00)
[2019-03-23] MEDS: predniSONE 20 MG TAB PO SCH (10:20)
--- NOTE | 2019-03-23 15:49 | Orthopedic Consultation ---
Date of Consultation March 23, 2019 Assessment & Plan (1) Leg pain, right: I think most of his leg pain might be coming from his lumbar spine. He has an obvious scoliosis. He has not had any recent imaging studies of his lumbar spine. He does have a history of scoliosis as a child and had to wear a [place] brace while in high school. He has not had any back issues since. I am going to order x-rays and an MRI of his lumbar spine. After reviewing the studies he may be a candidate for a lumbar injection. I will continue to follow him closely. Present on Admission?: Yes History of Present Illness Reason for Consultation: Right leg pain Attending Physician: Abel Gunter History of Present Illness Nikhil is a pleasant 43-year-old male who I did a right anterior total hip replacement on in October 2018. He had advanced arthritis and collapsing AVN of his right hip. After the procedure he initially did well. Unfortunately he returned to my office several months later with complaints of right leg and knee pain. I gave him a right knee intra-articular injection and that helped some with his pain. Unfortunately his pain returned. I gave him another injection without any relief. Most of his pain seems located laterally down the side of his leg. It radiates from his greater trochanteric region anteriorly over the patella. More of his pain is located in the knee. Does not have any groin pain. He has constant pain in his right knee. It is exasperated while lying flat or with hyperextension of his back. He is also been having trouble with shortness of breath. He has been admitted to the hospital for dyspnea but his right leg pain has been worsening. Sed rate and CRP have been negative. X-rays of his hip and his knee were essentially negative. Orthopedics was consulted to evaluate and treat. Allergies Allergy/AdvReac Type Severity Reaction Status Date / Time gluten Allergy Unknown STOMACH Verified 03/21/19 00:11 ISSUES Cipro AdvReac Intermediate issue with Verified 08/19/17 14:34 legs ciprofloxacin AdvReac Intermediate issue with Verified 03/21/19 00:11 legs oxycodone AdvReac Mild GI upset Verified 03/21/19 00:11 Home Medications Home Medications Medication Instructions Recorded Confirmed Type ascorbic acid (vitamin C) [Vitamin 2,000 mg PO QAM 09/05/18 03/22/19 History C] azelastine 1 spray INTRANASAL QAM 09/05/18 03/22/19 History calcium carbonate-vitamin D3 1 tab PO BID 09/05/18 03/22/19 History [Calcium 600 + D(3)] cholecalciferol (vitamin D3) 1,000 unit PO QAM 09/05/18 03/22/19 History [Vitamin D3] levalbuterol tartrate 3 puff INHALATION BID 09/05/18 03/22/19 History montelukast [Singulair] 10 mg PO QAM 09/05/18 03/22/19 History multivitamin 1 tab PO QAM 09/05/18 03/22/19 History fexofenadine [Dilma Allergy] 180 mg PO QAM 09/18/18 03/22/19 History Prolia 60 mg SUBCUT Q6M 10/10/18 03/22/19 History lorazepam [Ativan] 0.5 mg PO TID PRN 10/10/18 03/22/19 History cetirizine [Zyrtec] 10 mg PO HS 12/18/18 03/22/19 History fluticasone propionate 2 spray INTRANASAL HS 12/18/18 03/22/19 History levalbuterol HCl 1.25 mg INHALATION Q4H PRN 12/18/18 03/22/19 History levothyroxine 25 mcg tablet 25 mcg PO QAM #90 tab 01/09/19 03/22/19 Rx Trelegy Ellipta 1 inh INHALATION DAILY 01/10/19 03/22/19 History diclofenac sodium 4 g TOPICAL BID PRN 01/13/19 03/22/19 History warfarin 10 mg tablet 12.5 mg PO 5XWK 02/27/19 03/22/19 History ipratropium bromide 0.02 % 3 ml INHALATION UD PRN #150 ml 03/08/19 03/22/19 History solution for inhalation epinephrine 0.3 mg/0.3 mL 0.3 mg IM Q15M PRN #2 ea 03/15/19 03/22/19 Rx injection, auto-injector omalizumab 150 mg subcutaneous 150 mg SQ .COMPLEX #1 ea 03/15/19 03/22/19 Rx solution tramadol 50 mg tablet 50 mg PO Q6H #30 tab 03/20/19 03/22/19 Rx meclizine 25 mg PO TID PRN 03/21/19 03/22/19 History omeprazole 40 mg PO DAILY 03/21/19 03/22/19 History warfarin [Coumadin] 15 mg PO 2XWK 03/22/19 03/22/19 History Patient History Medical History Long-term (current) use of anticoagulants, INR goal 2.5-3.5 H/O lymphopenia (Resolved) History of undescended testicle (Resolved) History of wrist fracture (Resolved) Vitamin D deficiency (Acute) Venous insufficiency (Acute) Steroid-induced avascular necrosis of hip (Chronic) Mineral deficiency (Acute) Malaria (Acute) Low back pain (Acute) Hypogammaglobulinemia (Acute) Herpes zoster (Acute) Hearing loss (Acute) Dysfunction of both eustachian tubes (Acute) Degenerative joint disease (DJD) of hip (Acute) Chronic rhinitis (Acute) Chronic reflux esophagitis (Acute) Chronic deep vein thrombosis of popliteal vein (Acute) Back pain (Acute) Allergy (Acute) Avascular necrosis of hip Osteoporosis GERD (gastroesophageal reflux disease) (Chronic) Asthma (Chronic) Bronchiectasis FOLLOWS WITH PULMONARY Dextroscoliosis Hearing deficit HEARING AIDS Hx of deep venous thrombosis 2016 Hx pulmonary embolism 2016 Hypothyroidism Pectus excavatum Surgical History History of placement of ear tubes (Acute) left ear History of ear surgery X4 Hx of hemorrhoidectomy Family History Mother Osteoporosis Father Coronary heart disease Prostate cancer Unknown Prostate cancer Other Diabetes Heart disease Social History Preferred Language: Filipino Communication Ability: Effective Stereo Equipment Installer Required: No Beliefs That Will Affect Care: None marital status: Current Living Situation: Spouse and Family current occupational status: employed Other Information That Helps Us Care for You: No Feels Safe at Home: Yes Safety Concerns: Feels Safe At This Time Smoking Status: Never smoker Second Hand Exposure: No ; Hx Alcohol Use: No Hx Substance Use: No Review of Systems Review of Systems: All systems reviewed & are unremarkable except as noted in HPI & below Physical Exam Musculoskeletal: On physical examination of the right leg he has good range of motion of his hip without any groin or hip pain. His full range of motion of his knee without any pain no medial lateral joint line pain and no effusion. He has 4 out of 5 muscle strength with straight leg raise and 4 out of 5 motor strength in the L5 nerve root with extension of his great toe. He has 5 out of 5 muscle strength with dorsiflexion and plantarflexion. Results & Data Vital Signs (Past 12 Hours) Vital Signs Temp Pulse Pulse Resp BP Pulse Ox 03/23/19 14:56 37 C 104 H 18 93/56 L 94 03/23/19 12:20 77 14 96 03/23/19 07:52 36.7 C 94 H 15 104/68 95 03/23/19 06:33 96 H 16 96 Diagnostic Findings X-rays reviewed of the right hip show the prosthesis to be in acceptable alignment. There is no change on the x-rays from the initial postoperative visit. There is no signs of fracture or loosening of the implants. X-rays of the right knee are essentially negative. I do not see any significant arthritis or osseous abnormalities. PG Care Time/CCT Total # of Minutes Spent Total Time Spent with Patient: Total time spent is greater than 50% in coordination of care (as documented) at patient's floor/unit and/or counseling patient:
[2019-03-23] MEDS ORDERED: WARFARIN SOD 5 MG TAB PO SCH (16:00)
[2019-03-23] MEDS ORDERED: WARFARIN SOD 10 MG TAB PO SCH (16:00)
--- NOTE | 2019-03-23 16:25 | XRay Report ---
XR lumbar spine 2-3V CLINICAL HISTORY: R leg radiculopathy COMPARISON STUDY: 09/22/2016 FINDINGS: There is an S-shaped thoracolumbar scoliosis. There is scattered stool within the colon. Th e bones are osteopenic. There are old superior endplate L1 and L4 compression deformities. No acute f ractures or subluxations are visualized. IMPRESSION: Scoliosis and old superior endplate L1 and L4 vertebral body deformities. Osteopenia. No acute fractures. Electronically signed by: Venu Jackman M.D. 03/23/2019 4:23 PM
--- NOTE | 2019-03-23 17:08 | Magnetic Resonance Report ---
MR lumbar spine wo con HISTORY: Pain. Neuropathy. R leg radiculopathy TECHNIQUE: Multiplanar multisequence MRI of the lumbar spine was performed without the use of contras t. COMPARISON: None. FINDINGS: For the purpose of the report the L5-S1 disc space will be located on axial image 27 of 30. Moderate compression deformities of L1 and L4 which are considered old/pre-existing. Moderate scolios is. Moderate to rather significant degenerative disc changes throughout. L1-L2: Minimal broad-based disc bulge. Minimal impacted anterior thecal sac. Neural foramina are/mini roman compromised bilaterally. L2-L3: Broad-based bulging disc. Mild impact anterior thecal sac. Mild narrowing right neural foramin a. L3-L4: No significant central canal or neural foraminal narrowing. L4-L5: No significant central canal or neural foraminal narrowing. L5-S1: No significant central canal or neural foraminal narrowing. IMPRESSION: 1. Scoliosis. 2. Mild compression deformity superior endplates of L1 and L4 considered old. 3. Mild multilevel bulging discs at L1-L2, and L2-L3. 4. No evidence for a major disc herniation or significant components of the spinal stenosis. The above report was generated using voice recognition software. It may contain grammatical, syntax or spelling errors. Electronically signed by: Rambo Chapman M.D. 03/23/2019 5:07 PM
[2019-03-23] MEDS ORDERED: CETIRIZINE HCL 10 MG TABLET PO SCH (21:00)
[2019-03-23] MEDS ORDERED: GABAPENTIN 100 MG CAP PO SCH (21:00)
[2019-03-23] MEDS ORDERED: FLUTICASONE PROPIONATE NA SPR 16 GM BTL SCH (21:00)
--- NOTE | 2019-03-23 21:01 | Hospitalist Progress Note ---
Date of Service March 23, 2019 Assessment & Plan (1) Degenerative joint disease (DJD) of lumbar spine: Patient's right leg pain may be radicular pain from DJD of L-spine. Seen by Dr Perry today -- he also felt that the right leg pain may be from his back and not due to intrinsic hip or knee pain. Knee and hip x-rays were largely normal. Sed rate/crp were normal. MRI of lumbar spine today as ordered by Dr Perry does indeed show herniated disc with right-sided neuroforaminal narrowing at L2-L3. This could account for some of his right leg symptoms. Will start gabapentin 100mg at HS for radiculopathy. Titrate to 100mg TID tomorrow if he tolerates it. Continue prednisone 40mg daily - consider medrol dose pack at d/c. Continue tylenol 1gm TID scheduled. Continue tramadol prn. Staff report that despite the above he is ambulating w/o difficulty. (2) Leg pain, right: see discussion above in "DJD" (3) Shortness of breath: exact etiology uncertain. certainly he has restrictive lung disease from severe pectus deformity and significant scoliosis. he has a history of COPD and question ILD as noted in various records. he does not appear to be in exacerbation of any of the above conditions. His o2 sats have been normal since ER presentation. Lungs have been clear. CTA chest w/o PE, pneumonia, edema, etc. Echo 12/2018 was normal. Could he have had a mucous plug that he passed? Will continue to observe. Check O2 sats again tomorrow w/ walking. Sees Dr Morrissey chronically as outpatient. (4) Pectus excavatum: severe no Rx (5) Hypothyroidism (acquired): TSH this admission wnl cont synthroid (6) Pulmonary embolism: history of such. CTA chest at admission negative for PE. cont coumadin per home regimen INR in am (7) History of COPD: no apparent exacerbation at this time cont inhalers, nebs, etc (8) Scoliosis: moderate - severe clinically and radiographically (9) DVT prophylaxis: coumadin hopefully home on Tuesday if feeling ok, ambulating, and if cleared by orthopedics Subjective Dyspnea at rest resolved. Still has mild dyspnea on exertion. Nursing staff report they checked O2 sats w/ walking - stayed at 95%. no cough, wheezing or congestion. continues with mild right leg pain extending from right lateral hip region down towards the knee, brought on by movements. Review of Systems Constitutional: no fever, no chills and no anorexia Respiratory: + dyspnea on exertion; no cough, no chest congestion, no dyspnea, no pain on inspiration and no sputum production Cardiovascular: no chest pain Gastrointestinal: no abdominal pain, no nausea and no vomiting Physical Exam Constitutional: + thin; no acute distress ENMT: external ear and nose normal, oropharynx normal Respiratory: no respiratory distress Auscultation: lungs clear to auscultation bilaterally and + diminished lung sounds (mild, bases); no crackles and no wheezes Cardiovascular: Rate/Rhythm: regular rhythm and + tachycardic Heart Sounds: normal S1 and normal S2; no murmur Vessels: posterior tibial pulses present and dorsalis pedis pulses present; no JVD Extremities: no edema Chest (Breasts): Additional Comments: severe pectus deformity present Gastrointestinal (Abdomen): normal bowel sounds, soft, nontender, no hepatosplenomegaly Musculoskeletal: mod-severe scoliosis. right hip nontender to palpation; no pain with passive ROM of right hip. right knee w/o effusion or pain with palpation. Neurologic: no focal motor deficits Psychiatric: A+Ox3, euthymic affect Results & Data Vital Signs (Past 12 Hours) Vital Signs Temp Pulse Pulse Resp BP BP Pulse Ox 03/23/19 15:47 36.7 C 101 H 16 114/70 96 03/23/19 14:56 37 C 104 H 18 93/56 L 94 03/23/19 12:20 77 14 96 Laboratory Results Laboratory Results - last 24 hr 03/22/19 03/22/19 03/23/19 18:48 18:48 06:48 ESR 15 H PT 16.4 H INR 1.7 H C-Reactive Protein < 0.29 PG Care Time/CCT Total # of Minutes Spent Total Time Spent with Patient: Total time spent is greater than 50% in c oordination of care (as documented) at patient's floor/unit and/or counseling patient: (1) 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
[2019-03-24] MEDS: TRAMADOL HCL 50 MG TABLET PO SCH ×2 (00:22→06:38)
[2019-03-24] MEDS: LEVOTHYROXINE SODIUM 25 MCG TABLET PO SCH (06:38)
[2019-03-24 07:06] LABS: INR 1.5 (0.9-1.1); Prothrombin Time 15.1 Seconds (9.0-12.0)
[2019-03-24 07:26] LABS: BUN Creatinine Ratio 20.9 (10-20); Calcium 8.9 mg/dl (8.5-10.1); Creatinine Clr Calc Pharmacy 78.6 ml/min; Est GFR (African American) 88.3; Est GFR (Non-African American) 76.2; Potassium 3.6 mmol/L (3.5-5.1)
[2019-03-24] MEDS ORDERED: SODIUM CHLORIDE 0.9% 1000ML 500 ML IV ONE (08:17)
[2019-03-24] MEDS: predniSONE 20 MG TAB PO SCH (08:36)
[2019-03-24] MEDS: PANTOprazole 40 MG TAB PO SCH (08:36)
[2019-03-24] MEDS: MULTIVITAMIN TAB PO SCH (08:36)
[2019-03-24] MEDS: LEVALBUTEROL TARTRATE 15 GM HFA.AER.AD INH SCH (08:36)
[2019-03-24] MEDS: CHOLECALCIFEROL 1,000 UNITS TAB PO SCH (08:37)
[2019-03-24] MEDS: ASCORBIC ACID 500 MG TAB PO SCH (08:37)
[2019-03-24] MEDS: MONTELUKAST SODIUM 10 MG TABLET PO SCH (08:37)
[2019-03-24] MEDS: [UNRECOGNIZED DRUG - OTHER] SCH (08:37)
[2019-03-24] MEDS: ACETAMINOPHEN 500 MG TAB PO SCH (08:37)
[2019-03-24] MEDS: CALCIUM 600MG + VIT D 400 IU TAB PO SCH (08:37)
[2019-03-24] MEDS: FEXOFENADINE HCL 180 MG TAB PO SCH (08:38)
--- NOTE | 2019-03-24 09:33 | Orthopedic Progress Note ---
Date of Service March 24, 2019 Assessment & Plan (1) Leg pain, right: I saw Thai today with our spine surgeon 's after. We went over the MRI and the x-rays together as well. He does have a scoliosis and some degenerative disc disease but no significant nerve root impingement. The gabapentin seems to be helping. This could still be a neurologic etiology however it might not be coming from his back. It does not seem to be coming from his hip or his knee joint either. He is better on the gabapentin. At this point he can be discharged home and I will continue to follow him as an outpatient. He has an appointment scheduled to see me on Tuesday. We will see how the gabapentin's helping with his pain. I can also offer a greater trochanteric injection in the office if I feel that is necessary. He is happy that there is no significant spinal pathology other than the scoliosis. Present on Admission?: Yes Subjective Thai was seen and examined at bedside this morning. Overall he is doing a lot better. The gabapentin seems to be helping. He still is a little bit of soreness down the lateral aspect of his leg to his knee but it certainly not as bad as it was yesterday. He is hoping to go home today. Physical Exam Musculoskeletal: Physical examination is relatively unchanged. He still little weak with straight leg raise and with extension of his right great toe. He has no significant atrophy. He has no groin pain with range of motion of his hip. He has no effusion of his right knee. Results & Data Vital Signs (Past 12 Hours) Vital Signs Temp Pulse Resp BP Pulse Ox 03/24/19 07:41 36.5 C 69 16 107/69 94 03/23/19 23:25 36.8 C 100 H 18 107/71 93 Diagnostic Findings X-rays and MRI were reviewed by myself. I also reviewed them with our spine surgeon Dr. Mcelroy. There is a scoliosis with some degenerative disc disease but I do not see any significant stenosis or nerve root impingement. PG Care Time/CCT Total # of Minutes Spent Total Time Spent with Patient: Total time spent is greater than 50% in coordination of care (as documented) at patient's floor/unit and/or counseling patient:
--- NOTE | 2019-03-24 12:43 | Discharge Summary ---
Date of Service March 24, 2019 Admission HPI Per Admitting Provider This is a 43-year-old male presents emergency room with complaints of worsening shortness of breath approximately 6 PM. Patient in general is not been feeling well over the last several days. Was seen in the ER for leg pain and Dopplers were negative. Patient returned from dinner this evening and was having a hard time breathing. On arrival to ER patients o2 sats were normal. They drop down to 87% with activity but come right back to normal. Patient thinks it is his asthma because he is having a hard time getting air in. His does not feel like this is presenting like his asthma. He has not sounded congested and there has been no wheezing. Both patient and his continue to talk about how bad right leg pain is. Patient states it is both right hip and knee. Patient had right hip replacement by Dr. Perry October 10, 2018. A few weeks after surgery patients knee pain was so bad Dr. Perry gave him a shot which seemed to help for 2-3 months. He was doing well until about the end of January when his knee began to hurt again. He received another shot in his knee, this time with no relief. Patients knee has progressively been causing more pain. He was started on tramadol by his PCP which brings pain down to 5/10. Admission Exam Per Admitting Provider Constitutional: well developed and + ill appearing Eyes: PERRL, conjunctivae normal, anicteric sclerae ENMT: Ears: + hearing impairment (hearing aids) Neck: trachea midline, no thyromegaly Respiratory: clear breath sounds b/l with decreased air movement Cardiovascular: RRR, no murmur, no edema Gastrointestinal (Abdomen): normal bowel sounds, soft, nontender, no hepatosplenomegaly Musculoskeletal: right hip pain with ext rotation and flexion lateral knee pain with palpation Skin: no rashes, warm and dry Neurologic: awake; not confused Psychiatric: A+Ox3, euthymic affect Principal Diagnosis DJD of lumbar spine, Back pain Discharge Exam General: Resting comfortably HEENT: NC/AT; PERRLA with EOMI; [place] conjunctiva, MMM. No erythema of posterior pharynx Neck: Supple and nontender Cardiac: RRR Lungs: CTA bilaterally Abdomen: Bowel normoactive X 4; Nontender to palpation Extremities: Warm. No edema present Neuro: No focal weakness Skin: No rash Discharge Data Allergies Allergy/AdvReac Type Severity Reaction Status Date / Time gluten Allergy Unknown STOMACH Verified 03/21/19 00:11 ISSUES Cipro AdvReac Intermediate issue with Verified 08/19/17 14:34 legs ciprofloxacin AdvReac Intermediate issue with Verified 03/21/19 00:11 legs oxycodone AdvReac Mild GI upset Verified 03/21/19 00:11 Consultations 03/22/19 20:11 ED Decision to Admit Stat 03/22/19 22:41 Consult Orthopedic Surgery Routine Ordered Studies 03/22/19 19:16 CT angio chest PE protocol Stat 03/23/19 15:41 MR lumbar spine wo con Routine Hospital Course (1) Degenerative joint disease (DJD) of lumbar spine: Patient's right leg pain may be radicular pain from DJD of L-spine. Knee and hip x-rays were largely normal. Sed rate/crp were normal. MRI of lumbar spine showed herniated disc with right-sided neuroforaminal narr owing at L2-L3 - likely attributing to symptoms. Started Gabapentin 100 mg qhs; will increase to 100 mg BID. Started Prednisone 40 mg daily; will discharge with Medrol dose dustin. Tylenol 1 gm PO TID scheduled with Tramadol q6hr prn. He will follow up with Dr. Perry in outpatient clinic this week. Did not require further therapy needs, stable for discharge to home on 03/24. (2) Leg pain, right: See above. (3) Shortness of breath: Pt. complained of being "winded" with exertion. Has restrictive lung disease from severe pectus deformity and significant scoliosis. He has a history of COPD and question ILD as noted in various records. No acute exacerbations of either condition. O2 sats were stable; lungs CTA on exam. Chest CT was negative and recent echo in December was normal. Followed by Dr. Morrissey, evaluate further as outpatient. (4) Pectus excavatum: Severe. (5) Hypothyroidism (acquired): Continued Synthroid as prescribed. (6) Pulmonary embolism: CTA chest at admission negative for PE. Continued Coumadin -- INR was subtherapeutic on day of discharge (1.5) -- advised pt. to take Coumadin 15 mg daily over next 2 days and follow up for INR on Tuesday. INR levels monitored by Santiago Roger PA-C. (7) History of COPD: Continued home inhalers. No acute exacerbation noted. (8) Scoliosis: Moderate - severe clinically and radiographically (9) Elevated BUN: Elevated BUN with rising Cr on day of discharge. May be dehydration -- received IV fluids prior to discharge. Encouraged PO fluid intake. Caution with nephrotoxic meds, including titrating up gabapentin dose as outpatient. (10) DVT prophylaxis: Continued Coumadin. Stable for discharge to home on 03/24. Total Time Total Time Spent Total Time Spent (In Minutes): >30 minutes Total Time Includes: Examination of the Patient, Discharge Planning, Medication Reconciliation, Communication With Other Providers and Other Discharge Plan Discharge Items Patient Disposition: Home - Self-Care Reason For Visit: INTRACTABLE PAIN Discharge Diagnosis: DJD of the spine, Back Pain Condition: Good Discharge Goals: Decrease discomfort, Improve disease control, Improve function, Increase independence and Prevent disease Activity: As commented below Exercise/Sports: Gradually increase as tolerated Non-emergency contact: Primary Care Provider and Surgeon Call non-emergency contact if: you have any medication questions, your symptoms worsen, your pain is not controlled, your pain is worsening, your pain is unusual for you, your pain is concerning for you and you have a fever Follow-up/Referrals: Jefe Adorno MD [Primary Care Provider] - Diet: Regular Addtl Provider Instructions: 1. DJD of the spine, Back Pain * Gabapentin has been started -- please take 100 mg twice daily. * Please take a Medrol dose dustin per instructions on packaging. * Please take over the counter Tylenol 1 gm three times daily scheduled. * Prescription was also provided for Tramadol 50 mg every 6 hours as needed for breakthrough pain. * Please follow up with orthopedics as scheduled this coming week for evaluation. 2. History of Pulmonary Embolism * Please take Coumadin 15 mg today at 4 pm and tomorrow (Tuesday). * Please have a PT/INR collected on Tuesday03/26/19. 3. Please schedule an appointment with your PCP in 1-2 weeks. Prescriptions: New acetaminophen [Tylenol Extra Strength] 500 mg Tablet 1,000 mg PO TID 1 Days Qty: 6 RF: 0 gabapentin 100 mg Capsule 100 mg PO BID 30 Days Qty: 60 RF: 0 methylprednisolone [Medrol (Dustin)] 4 mg tablets,dose pack 4 mg PO DAILY Qty: 21 RF: 0 Continued levothyroxine 25 mcg tablet 25 mcg PO QAM Qty: 90 RF: 3 tramadol 50 mg tablet 50 mg PO Q6H Qty: 30 RF: 0 epinephrine [EpiPen 2-Dustin] 0.3 mg/0.3 mL auto-injector 0.3 mg IM Q15M PRN (Reason: anaphylaxis) Qty: 2 RF: 0 Xolair 150 mg recon soln 150 mg SQ .COMPLEX Qty: 1 RF: 0 ipratropium bromide 0.02 % solution 3 ml inhalation UD PRN (Reason: Shortness Of Breath Or Wheezing) Qty: 150 RF: 0 multivitamin Tablet 1 tab PO QAM RF: 0 ascorbic acid (vitamin C) [Vitamin C] 1,000 mg Tablet 2,000 mg PO QAM RF: 0 montelukast [Singulair] 10 mg Tablet 10 mg PO QAM RF: 0 azelastine 137 mcg (0.1 %) aerosol,spray 1 spray Intranasal QAM RF: 0 levalbuterol tartrate 45 mcg/actuation Hfa Aerosol Inhaler 3 puff INHALATION BID RF: 0 cholecalciferol (vitamin D3) [Vitamin D3] 1,000 unit Tablet 1,000 unit PO QAM RF: 0 calcium carbonate-vitamin D3 [Calcium 600 + D(3)] 600 mg(1,500mg) -400 unit Tablet 1 tab PO BID RF: 0 fexofenadine [Dilma Allergy] 180 mg Tablet 180 mg PO QAM RF: 0 omeprazole 40 mg capsule,delayed release(DR/EC) 40 mg PO DAILY RF: 0 meclizine 25 mg tablet 25 mg PO TID PRN (Reason: Dizziness Or Vertigo) RF: 0 Prolia 60 mg/mL Syringe 60 mg subcut Q6M RF: 0 lorazepam [Ativan] 0.5 mg Tablet 0.5 mg PO TID PRN (Reason: Anxiety) RF: 0 fluticasone propionate 50 mcg/actuation spray,suspension 2 spray intranasal HS RF: 0 cetirizine [Zyrtec] 10 mg Tablet 10 mg PO HS RF: 0 levalbuterol HCl 1.25 mg/3 mL solution for nebulization 1.25 mg inhalation Q4H PRN (Reason: Shortness Of Breath Or Wheezing) RF: 0 Trelegy Ellipta 100-62.5-25 mcg Blister With Device 1 inh INHALATION DAILY RF: 0 diclofenac sodium 1 % Gel 4 g TOPICAL BID PRN (Reason: Pain) RF: 0 Changed warfarin [Coumadin] 10 mg tablet 15 mg PO DAILY Qty: 0 RF: 0 Discontinued warfarin 10 mg tablet 12.5 mg PO 5XWK RF: 0 Stand-Alone Forms: [employer], [facility] Pain [facility] [employer]/Other Patient Handouts: Coumadin, DVT Prevent Discharge Orders: Discharge Order (Routine); Ordered 03/24/19 Ordered By: Kacey Logan Admission Data Admit Date/Time: 03/22/19 21:41 Attending Provider: Kasi Cates Admit Provider: Abel Gunter Primary Care Provider: Jefe Adorno Other Providers: Laz Wray ; Marco Perry ; Kasi Cates Service: Surgical Services Other Interventions: Discharge Summary Assessment (RN) Last Done: 03/24/19 09:43 Pending Studies at Discharge: No DC Date/Time DO NOT enter until pt leaves facility: 03/24/19 11:08
[2019-03-24] MEDS ORDERED: WARFARIN SOD 5 MG TAB PO SCH (16:00)
[2019-03-24] MEDS ORDERED: WARFARIN SOD 2.5 MG TAB PO SCH (16:00)
[2019-03-24] MEDS ORDERED: GABAPENTIN 100 MG CAP PO SCH (21:00)
== END 2019-03-24 11:08 | disposition home or self-care (01) ==
LOC: 3N 18:17 → ED 18:17 → SUATTDRO 21:41 → 3N 23:00

== ENCOUNTER 2019-09-17 19:08 | Observation (INO) ==
[2019-09-17] MEDS ORDERED: ALBUTEROL 0.083% NEBU SOLN 3 ML VIAL NEB STA (19:26)
[2019-09-17] MEDS ORDERED: MoRPHine SULFATE 4 MG/ML 1 ML CARP\\VIAL IV STA (19:46)
[2019-09-17] MEDS ORDERED: ASPIRIN CHEW 324 MG PO STA (19:46)
[2019-09-17 19:48] LABS: Hematocrit (blood only) 44.1 % (42-52); Hemoglobin 14.7 g/dL (14.0-18.0); Immature Granulocytes # (auto) 0.07 K/uL (0.00-0.02); Immature Granulocytes % (auto) 1.1 %; Lymphocytes % (auto) 14.5 %; Mean Corpuscular Hgb Conc 33.3 g/dL (32-36); Mean Corpuscular Volume 96.1 fL (80-100); Mean Platelet Volume 10.2 fL (7.4-10.4); Monocytes # (auto) 0.56 K/uL (0.11-0.59); Neutrophils # (auto) 4.66 K/uL (1.4-6.5); Neutrophils % (auto) 75.4 %; Platelet Count 136 K/uL (130-400); RDW Coefficient of Variation 14.8 % (11.5-14.5); RDW Standard Deviation 52.2 fL (36.4-46.3); Red Blood Count 4.59 M/uL (4.7-6.1); White Blood Count 6.19 K/uL (4.8-10.8)
--- NOTE | 2019-09-17 19:56 | XRay Report ---
XR chest 1V portable HISTORY: 44 years-old Male Dyspnea acute shortness of breath COMPARISON: Chest radiograph and CTA chest 08/21/2019 TECHNIQUE: Portable AP view of the chest FINDINGS: Cardiac silhouette is enlarged, unchanged. Prominence of the pulmonary arteries suggest pulmonary art erial hypertension. There is no pneumothorax, pleural effusion, focal airspace consolidation or overt pulmonary edema. Bones appear grossly intact. Pectus excavatum deformity. IMPRESSION: Cardiomegaly without acute process. ACT 112: Negative or not required by law. The above report was generated using voice recognition software. It may contain grammatical, syntax o r spelling errors. Electronically signed by: Loco Moody M.D. 09/17/2019 7:55 PM
[2019-09-17 20:07] LABS: Alanine Aminotransferase 42 U/L (12-78); Albumin Level 3.8 gm/dl (3.4-5.0); Aspartate Aminotransferase 13 U/L (15-37); BUN Creatinine Ratio 17.1 (10-20); Blood Urea Nitrogen 14 mg/dl (7-18); Calcium 9.2 mg/dl (8.5-10.1); Carbon Dioxide 27 mmol/L (21-32); Chloride 108 mmol/L (98-107); Creatinine Clr Calc Pharmacy 116.1 ml/min; Est GFR (Non-African American) 107.9; Glucose 108 mg/dl (70-99); Potassium 3.9 mmol/L (3.5-5.1); Sodium 140 mmol/L (136-145)
[2019-09-17 20:12] LABS: Albumin Globulin Ratio 1.3 (0.9-2); Alkaline Phosphatase 59 U/L (45-117); Bilirubin,Total 0.6 mg/dl (0.2-1); Partial Thromboplastin Ratio 0.8; Partial Thromboplastin Time 21.3 Seconds (21.0-31.0); Prothrombin Time 10.3 Seconds (9.0-12.0); Total Protein 6.8 gm/dl (6.4-8.2); Troponin I < 0.015 ng/ml (0-0.045)
[2019-09-17 20:20] LABS: Influenza A virus by PCR Neg for Influ A (Neg); Influenza B virus by PCR Neg for Influ B (Neg)
[2019-09-17] MEDS ORDERED: LORazepam 1 MG/2 ML VIAL IV STA (21:16)
--- NOTE | 2019-09-17 21:21 | History & Physical Report ---
Date of Service September 17, 2019 Assessment & Plan (1) Chest pain, precordial: Obs PCU trend trops Examines as musculoskeletal along left mid-lateral ribcage. (2) Bronchiectasis: Continue acetylcysteine inh. (3) History of COPD: Continue prn Xopenex nebs. Continue Trelegy Ellipta (4) Severe persistent asthma: I do not appreciate wheezing or bronchospasm, however, the patient is breathing rapidly and in shallow inspirations. He is able to talk in full sentences though. I did ordered IV Solu medrol not as much for an asthma exacerbation, but to treat a pleurisy or inflammation of the intercostal muscles. Continue Singulair (5) GERD (gastroesophageal reflux disease): Omeprazole. (6) Hx pulmonary embolism: Continue Xarelto. History of Present Illness 44 y/o male presented to the ED with non-radiating chest pain from 0630 am. The pain is worse with deep inspiration. Apparently the patient has chronic chest pain, however, this is worse than usual. He also complains of not being able to take a deep breath. His POX is 98% on RA. The patient does where 2L nc overnight. No fever or chills. No cough, runny nose, N/V/D, or recent travel. He has history of asthma. He uses Xarelto for hx of PE. Primary Care Provider: Barrington Adorno MD Allergies Allergy/AdvReac Type Severity Reaction Status Date / Time gluten Allergy Mild STOMACH Verified 09/04/19 09:58 ISSUES Cipro AdvReac Intermediate issue with Verified 08/19/17 14:34 legs ciprofloxacin AdvReac Intermediate issue with Verified 09/04/19 09:58 legs oxycodone AdvReac Mild GI upset Verified 09/04/19 09:58 Home Medications Home Medications Medication Instructions Recorded Confirmed Type azelastine 1 spray INTRANASAL QAM 09/05/18 09/17/19 History calcium carbonate-vitamin D3 1 tab PO BID 09/05/18 09/17/19 History [Calcium 600 + D(3)] multivitamin 1 tab PO QAM 09/05/18 09/17/19 History Prolia 60 mg SUBCUT Q6M 10/10/18 09/17/19 History diclofenac sodium 4 g TOPICAL BID PRN 01/13/19 09/17/19 History ascorbic acid (vitamin C) 500 mg 1,000 mg PO QAM tab 03/27/19 09/17/19 History tablet cholecalciferol (vitamin D3) 50 2,000 units PO QAM cap 03/27/19 09/17/19 History mcg (2,000 unit) capsule fexofenadine 180 mg tablet 180 mg PO QAM 03/27/19 09/17/19 History ipratropium bromide 0.02 % 3 ml INHALATION Q6H PRN #150 ml 04/13/19 09/17/19 History solution for inhalation omega-3 fatty acids 1,000 mg 1,000 mg PO QAM 04/13/19 09/17/19 History capsule Trelegy Ellipta 1 puffs INH QAM 06/01/19 09/17/19 History montelukast [Singulair] 10 mg PO HS 06/01/19 09/17/19 History omeprazole 20 mg PO QAM 06/01/19 09/17/19 History acetylcysteine 100 mg/mL (10 %) 2 ml INH BID #90 ml 06/14/19 09/17/19 Rx solution Oxygen Home #1 ea 07/27/19 09/04/19 Rx lorazepam 0.5 mg tablet 0.5 mg PO TID PRN #60 tab 07/30/19 09/17/19 Rx levothyroxine 25 mcg tablet 25 mcg PO QAM #90 tab 08/10/19 09/17/19 Rx levalbuterol HCl 1.25 mg/3 mL 1.25 mg INH Q4H #360 vial 09/10/19 09/17/19 Rx solution for nebulization epinephrine [EpiPen 2-Dustin] 0.3 mg IM Q15M PRN 09/17/19 09/17/19 History levalbuterol tartrate 2 puffs INHALATION Q4H PRN 09/17/19 09/17/19 History omalizumab [Xolair] 150 mg SQ DIRECTED 09/17/19 09/17/19 History polysaccharide iron complex 150 mg PO QAM 09/17/19 09/17/19 History [Ferrex 150] rivaroxaban [Xarelto] 20 mg PO QAM 09/17/19 09/17/19 History Past Med/Surg History Medical History Bronchiectasis FOLLOWS WITH PULMONARY Chronic deep vein thrombosis of popliteal vein (Acute) Chronic reflux esophagitis (Acute) Chronic rhinitis Degenerative joint disease (DJD) of hip (Acute) Dextroscoliosis Dysfunction of both eustachian tubes (Acute) GERD (gastroesophageal reflux disease) (Chronic) H/O lymphopenia Hearing deficit HEARING AIDS Hearing loss (Acute) Herpes zoster History of undescended testicle History of wrist fracture Hx of deep venous thrombosis 2016 Hx pulmonary embolism 2016 Hypothyroidism Long-term (current) use of anticoagulants, INR goal 2.5-3.5 Malaria Osteoporosis Pectus excavatum Steroid-induced avascular necrosis of hip (Chronic) Venous insufficiency (Acute) Vitamin D deficiency (Acute) Surgical History History of ear surgery X4 History of placement of ear tubes (Acute) left ear Hx of hemorrhoidectomy S/P total hip arthroplasty (Acute) Right Family History Mother Osteoporosis Father Coronary heart disease Prostate cancer Unknown Prostate cancer Other Diabetes Heart disease Social History Preferred Language: B[place]udian Communication Ability: Effective 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 Head- atraumatic Eyes- PERRL, EOMI, anicteric ENT- oropharynx clear Neck- supple, no JVD, no adenopathy, no thyromegaly; carotids +2/2, Lungs- CTA b/l no R/R/W Heart- regular rhythm; no murmur, no gallop, no rub appreciated, reproducible tenderness of the Left ribs 3-7. Abdomen- normal bowel sounds, soft, nontender. Extremities- no pretibial edema, no calf tenderness; peripheral pulses intact Neuro- alert, oriented x 3; PERRL, EOMI; soaking room operator II- XII grossly intact, non-focal. Skin- warm & dry Results & Data Vital Signs (Past 12 Hours) Vital Signs Temp Pulse Pulse Resp BP BP Pulse Ox 09/17/19 21:01 93 H 30 H 119/86 97 09/17/19 19:50 70 21 97 09/17/19 19:12 36.4 C L 100 H 20 123/77 98 Laboratory Results Laboratory Results WBC 6.19 K/uL (4.8-10.8) 09/17/19 19:37 RBC 4.59 M/uL (4.7-6.1) L 09/17/19 19:37 Hgb 14.7 g/dL (14.0-18.0) 09/17/19 19:37 Hct 44.1 % (42-52) 09/17/19 19:37 MCV 96.1 fL (80-100) 09/17/19 19:37 MCH 32.0 pg (25-34) 09/17/19 19:37 MCHC 33.3 g/dL (32-36) 09/17/19 19:37 RDW Std Deviation 52.2 fL (36.4-46.3) H 09/17/19 19:37 RDW Coeff of Ligia 14.8 % (11.5-14.5) H 09/17/19 19:37 Plt Count 136 K/uL (130-400) 09/17/19 19:37 MPV 10.2 fL (7.4-10.4) 09/17/19 19:37 Immature Gran % (Auto) 1.1 % 09/17/19 19:37 Neut % (Auto) 75.4 % 09/17/19 19:37 Lymph % (Auto) 14.5 % 09/17/19 19:37 [place] % (Auto) 9.0 % 09/17/19 19:37 Eos % (Auto) 0.0 % 09/17/19 19:37 Baso % (Auto) 0.0 % 09/17/19 19:37 Immature Gran # (Auto) 0.07 K/uL (0.00-0.02) H 09/17/19 19:37 Neut # (Auto) 4.66 K/uL (1.4-6.5) 09/17/19 19:37 Lymph # (Auto) 0.90 K/uL (1.2-3.4) L 09/17/19 19:37 [place] # (Auto) 0.56 K/uL (0.11-0.59) 09/17/19 19:37 Eos # (Auto) 0.00 K/uL (0-0.5) 09/17/19 19:37 Baso # (Auto) 0.00 K/uL (0-0.2) 09/17/19 19:37 PT 10.3 Seconds (9.0-12.0) 09/17/19 19:37 INR 1.0 (0.9-1.1) 09/17/19 19:37 APTT 21.3 Seconds (21.0-31.0) 09/17/19 19:37 PTT Ratio 0.8 09/17/19 19:37 Sodium 140 mmol/L (136-145) 09/17/19 19:37 Potassium 3.9 mmol/L (3.5-5.1) 09/17/19 19:37 Chloride 108 mmol/L (98-107) H 09/17/19 19:37 Carbon Dioxide 27 mmol/L (21-32) 09/17/19 19:37 Anion Gap 5.0 (3-11) 09/17/19 19:37 BUN 14 mg/dl (7-18) 09/17/19 19:37 Creatinine 0.80 mg/dl (0.6-1.4) 09/17/19 19:37 Est Cr Clr Drug Dosing 116.1 ml/min 09/17/19 19:37 Est GFR ( Amer) 125.0 09/17/19 19:37 Est GFR (Non-Af Amer) 107.9 09/17/19 19:37 BUN/Creatinine Ratio 17.1 (10-20) 09/17/19 19:37 Glucose 108 mg/dl (70-99) H 09/17/19 19:37 Calcium 9.2 mg/dl (8.5-10.1) 09/17/19 19:37 Total Bilirubin 0.6 mg/dl (0.2-1) 09/17/19 19:37 AST 13 U/L (15-37) L 09/17/19 19:37 ALT 42 U/L (12-78) 09/17/19 19:37 Alkaline Phosphatase 59 U/L (45-117) 09/17/19 19:37 Troponin I < 0.015 ng/ml (0-0.045) 09/17/19 19:37 Total Protein 6.8 gm/dl (6.4-8.2) 09/17/19 19:37 Albumin 3.8 gm/dl (3.4-5.0) 09/17/19 19:37 Globulin 3.0 gm/dl (2.5-4.0) 09/17/19 19:37 Albumin/Globulin Ratio 1.3 (0.9-2) 09/17/19 19:37 Urine Color Dark Yellow 09/17/19 23:15 Urine Appearance Clear (Clear) 09/17/19 23:15 Urine pH 6.0 (4.5-7.5) 09/17/19 23:15 Ur Specific [place] 1.022 (1.000-1.030) 09/17/19 23:15 Urine Protein Negative (Negative) 09/17/19 23:15 Urine Glucose (UA) Negative (Negative) 09/17/19 23:15 Urine Ketones Negative (Negative) 09/17/19 23:15 Urine Blood 2+ (Negative) H 09/17/19 23:15 Urine Nitrite Negative (Negative) 09/17/19 23:15 Urine Bilirubin Negative (Negative) 09/17/19 23:15 Urine Urobilinogen Negative (Negative) 09/17/19 23:15 Ur Leukocyte Esterase Negative (Negative) 09/17/19 23:15 Influenza Type A (PCR) Neg for Influ A (Neg) 09/17/19 19:40 Influenza Type B (PCR) Neg for Influ B (Neg) 09/17/19 19:40 Diagnostic Findings [facility], [place] [phone] XRay Report Patient: ANGEL DANIELS Date: 09/17/19 MR#: [id number]: [address] Acct ID:[id number]: Date: 1975[facility] Zip: [place] [id number] Age: 44Location: ED Sex: M Room/Bed: Att Phy:Diagnosis: sob, ears hurt, sore throat,heart hurts Chantal Phy: Barrington Adorno, MDService Date: 09/17/19 Fam Phy:Interpreting Phy: Avery Moody Admit Phy: Ordering Phy: Guillermo Newby, cc: ~ XR chest 1V portable HISTORY: 44 years-old Male Dyspnea acute shortness of breath COMPARISON: Chest radiograph and CTA chest 08/21/2019 TECHNIQUE: Portable AP view of the chest FINDINGS: Cardiac silhouette is enlarged, unchanged. Prominence of the pulmonary arteries suggest pulmonary arterial hypertension. There is no pneumothorax, pleural effusion, focal airspace consolidation or overt pulmonary edema. Bones appear grossly intact. Pectus excavatum deformity. IMPRESSION: Cardiomegaly without acute process. ACT 112: Negative or not required by law. The above report was generated using voice recognition software. It may contain grammatical, syntax or spelling errors. Electronically signed by: Loco Moody M.D. 09/17/2019 7:55 PM Dictated: 09/17/191953 Transcribed: 09/17/191953 Code Status & VTE Plan VTE Prophylaxis Plan VTE Prophylaxis will be ordered: Yes PG Care Time/CCT Total # of Minutes Spent Total Time Spent: 55 Total Time Spent with Patient: Total time spent is greater than 50% in coordination of care (as documented) at patient's floor/unit and/or counseling patient: Coding Level of Care Code 23233 OBS Care - Level 3 Diagnoses Chest pain, precordial R07.2 Bronchiectasis J47.9 History of COPD Z87.09 Severe persistent asthma J45.50 GERD (gastroesophageal reflux disease) K21.9 Hx pulmonary embolism Z86.711
[2019-09-17] MEDS ORDERED: NITROGLYCERIN SL 0.4 MG/TAB TAB SL PRN (22:29)
[2019-09-17] MEDS ORDERED: ACETAMINOPHEN 325 MG TAB PO PRN (22:29)
[2019-09-17] MEDS ORDERED: ONDANSETRON INJ 2 MG/ML 2 ML VIAL IV PRN (22:29)
--- NOTE | 2019-09-17 23:45 | Emergency Department Note ---
Entered by Guillermo Candelaria acting as a scribe for Guillermo Newby DO History of Present Illness General Chief complaint: Chest Pain Stated complaint: sob, ears hurt, sore throat,heart hurts Source: patient History of Present Illness Onset (ago): hour(s) (earlier this morning) Location: chest Pain Consistency: + other (worsening) Maximum Pain Intensity: 4 Relieved By: + none Exacerbated By: + other (inspiration) Associated symptoms: + denies other symptoms (runny nose, diarrhea), + nausea/vomiting (nausea), + shortness of breath and + other (abdominal pain); no cough The patient is a 44 year old M who presents to the Emergency Room with complaints of worsening chest pain that started earlier this morning. The patient states that he was experiencing chest pain when he woke up this morning at 630am. He notes that he was at work today, 3 hours ago, when his chest pain worsened. He states that he normally has chest pain but adds that it was worse today. He notes that his chest pain is made worse with inspiration. He denies that anything make his pain better. He states that he is also currently experiencing shortness of breath, abdominal pain, and nausea. He add that his shortness of breath started 3 weeks ago. He denies currently experiencing a runny nose, diarrhea, and coughing. He states that he has a history of asthma. He notes that he is currently taking Xarelto. Home Medications Home Medications Medication Instructions Recorded Confirmed Type azelastine 1 spray INTRANASAL QAM 09/05/18 09/17/19 History calcium carbonate-vitamin D3 1 tab PO BID 09/05/18 09/17/19 History [Calcium 600 + D(3)] multivitamin 1 tab PO QAM 09/05/18 09/17/19 History Prolia 60 mg SUBCUT Q6M 10/10/18 09/17/19 History diclofenac sodium 4 g TOPICAL BID PRN 01/13/19 09/17/19 History ascorbic acid (vitamin C) 500 mg 1,000 mg PO QAM tab 03/27/19 09/17/19 History tablet cholecalciferol (vitamin D3) 50 2,000 units PO QAM cap 03/27/19 09/17/19 History mcg (2,000 unit) capsule fexofenadine 180 mg tablet 180 mg PO QAM 03/27/19 09/17/19 History ipratropium bromide 0.02 % 3 ml INHALATION Q6H PRN #150 ml 04/13/19 09/17/19 History solution for inhalation omega-3 fatty acids 1,000 mg 1,000 mg PO QAM 04/13/19 09/17/19 History capsule Trelegy Ellipta 1 puffs INH QAM 06/01/19 09/17/19 History montelukast [Singulair] 10 mg PO HS 06/01/19 09/17/19 History omeprazole 20 mg PO QAM 06/01/19 09/17/19 History acetylcysteine 100 mg/mL (10 %) 2 ml INH BID #90 ml 06/14/19 09/17/19 Rx solution Oxygen Home #1 ea 07/27/19 09/04/19 Rx lorazepam 0.5 mg tablet 0.5 mg PO TID PRN #60 tab 07/30/19 09/17/19 Rx levothyroxine 25 mcg tablet 25 mcg PO QAM #90 tab 08/10/19 09/17/19 Rx levalbuterol HCl 1.25 mg/3 mL 1.25 mg INH Q4H #360 vial 09/10/19 09/17/19 Rx solution for nebulization epinephrine [EpiPen 2-Dustin] 0.3 mg IM Q15M PRN 09/17/19 09/17/19 History levalbuterol tartrate 2 puffs INHALATION Q4H PRN 09/17/19 09/17/19 History omalizumab [Xolair] 150 mg SQ DIRECTED 09/17/19 09/17/19 History polysaccharide iron complex 150 mg PO QAM 09/17/19 09/17/19 History [Ferrex 150] rivaroxaban [Xarelto] 20 mg PO QAM 09/17/19 09/17/19 History Allergies Allergy/AdvReac Type Severity Reaction Status Date / Time gluten Allergy Mild STOMACH Verified 09/04/19 09:58 ISSUES Cipro AdvReac Intermediate issue with Verified 08/19/17 14:34 legs ciprofloxacin AdvReac Intermediate issue with Verified 09/04/19 09:58 legs oxycodone AdvReac Mild GI upset Verified 09/04/19 09:58 Past Med/Surg History Medical History Bronchiectasis FOLLOWS WITH PULMONARY Chronic deep vein thrombosis of popliteal vein (Acute) Chronic reflux esophagitis (Acute) Chronic rhinitis Degenerative joint disease (DJD) of hip (Acute) Dextroscoliosis Dysfunction of both eustachian tubes (Acute) GERD (gastroesophageal reflux disease) (Chronic) H/O lymphopenia Hearing deficit HEARING AIDS Hearing loss (Acute) Herpes zoster History of undescended testicle History of wrist fracture Hx of deep venous thrombosis 2016 Hx pulmonary embolism 2016 Hypothyroidism Long-term (current) use of anticoagulants, INR goal 2.5-3.5 Malaria Osteoporosis Pectus excavatum Steroid-induced avascular necrosis of hip (Chronic) Venous insufficiency (Acute) Vitamin D deficiency (Acute) Surgical History History of ear surgery X4 History of placement of ear tubes (Acute) left ear Hx of hemorrhoidectomy S/P total hip arthroplasty (Acute) Right Family History Mother Osteoporosis Father Coronary heart disease Prostate cancer Unknown Prostate cancer Other Diabetes Heart disease Social History Preferred Language: Thai Communication Ability: Effective Dry Box Tender Required: No Beliefs That Will Affect Care: None marital status: Current Living Situation: Spouse current occupational status: employed Other Information That Helps Us Care for You: No Feels Safe at Home: Yes Safety Concerns: Feels Safe At This Time Smoking Status: Never smoker Second Hand Exposure: No ; Hx Alcohol Use: No Hx Substance Use: No Review of Systems See HPI for pertinent positives & negatives. and A total of 10 systems reviewed and were otherwise negative Physical Exam Vital Signs Vital Signs - 24 hr 09/17/19 19:12 09/17/19 19:50 09/17/19 20:22 Temperature 36.4 C L Temperature Source Oral Pulse Rate 100 H Pulse Rate [Left Finger] 70 Respiratory Rate 20 21 Respiratory Effort / Characteristics Non-Labored Spontaneous Short of Breath Respiratory Depth Shallow Deep Blood Pressure 123/77 Blood Pressure Mean 92 Pulse Oximetry 98 97 Oxygen Delivery Method Room Air Room Air Sepsis Recent Fever Within 48 Hours No Sepsis New/Unexplained Change in Mental Status No Sepsis Action Taken by Nursing No Action Required GENERAL: Sitting up in bed, holding left chest wall, tachypneic which resolves throughout conversation, talking in low voice EYE EXAM: normal conjunctiva, PERRL and EOM's grossly intact OROPHARYNX: no exudate, no erythema, lips, buccal mucosa, and tongue normal and mucous membranes are moist NECK: supple, no nuchal rigidity, no adenopathy, non-tender LUNGS: Clear to auscultation. Normal chest wall mechanics HEART: no murmurs, S1 normal and S2 normal CHEST:Reproducible left anterior chest wall plain. 3-6 left rib pain. Acutely reproducible and worse with palpation and movement of upper extremity. ABDOMEN: abdomen soft, non-tender, normo-active bowel sounds, no masses, no rebound or guarding. BACK: Back is symmetrical on inspection and there is no deformity, no midline tenderness, no CVA tenderness. SKIN: no rashes and no bruising UPPER EXTREMITIES: upper extremities are grossly normal. 2/4 radial pulses. LOWER EXTREMITIES: No pitting edema. Calves equal bilateral. NEURO EXAM: Normal sensorium, cranial nerves II-XII grossly intact, normal speech, no gross weakness of arms, no gross weakness of legs. Course Course ED COURSE: Vital signs were reviewed and showed tachypnea. The patients medical record was reviewed The above diagnostic studies were performed and reviewed. ED treatments and interventions as stated above. 0: The patient was evaluated in room A11B. A complete history and physical examination was performed. 2013: Upon reevaluation, the patient is not doing any better. I discussed my findings with the patient and he understands and agrees with the treatment plan. 2041: I reviewed the patient's case with Dr. Montenegro, [facility] Hospitalist. He will evaluate the patient for further management. Based on the patients age, coexisting illnesses, exam and lab findings the decision to treat as an inpatient was made. The patient remained stable while under my care. The patient will be evaluated for further management. Administered Medications Discontinued Medications Albuterol (Ventolin 0.083% 2.5mg/3ml) 2.5 mg NEB NOW STA Stop: 09/17/19 19:27 Last Admin: 09/17/19 19:49 Dose: 2.5 mg Documented by: [id number] Aspirin (Aspirin) 324 mg PO NOW STA Stop: 09/17/19 19:47 Last Admin: 09/17/19 20:16 Dose: 324 mg Documented by: [id number] Lorazepam (Ativan) 1 mg in 2 mls @ 2 mls/min IV NOW STA Stop: 09/17/19 21:17 Last Admin: 09/17/19 21:22 Dose: 2 mls/min Documented by: [id number] Methylprednisolone (Solumedrol) 40 mg IV NOW STA Stop: 09/17/19 20:42 Last Admin: 09/17/19 21:01 Dose: 40 mg Documented by: [id number] Morphine Sulfate (Morphine Sulfate) 4 mg IV NOW STA Stop: 09/17/19 19:47 Last Admin: 09/17/19 20:16 Dose: 4 mg Documented by: [id number] Medical Decision Making Differential Diagnosis Differential diagnoses includes but is not limited to acute coronary syndrome, myocardial infarction, pericarditis, pulmonary embolus, aortic dissection, pneumonia, pneumothorax, musculoskeletal, shingles, esophageal. Medical Records Attestation: I reviewed the patient's medical records. Home Medications Current Medication List: was personally reviewed by me Laboratory Data Attestation: I reviewed the patient's lab results. Result diagrams: 09/17/19 19:37 09/17/19 19:37 Lab Results 09/17/19 09/17/19 09/17/19 Range/Units 19:37 19:37 19:37 WBC 6.19 (4.8-10.8) K/uL RBC 4.59 L (4.7-6.1) M/uL Hgb 14.7 (14.0-18.0) g/dL Hct 44.1 (42-52) % MCV 96.1 (80-100) fL MCH 32.0 (25-34) pg MCHC 33.3 (32-36) g/dL RDW Std Deviation 52.2 H (36.4-46.3) fL RDW Coeff of Ligia 14.8 H (11.5-14.5) % Plt Count 136 (130-400) K/uL MPV 10.2 (7.4-10.4) fL Immature Gran % (Auto) 1.1 % Neut % (Auto) 75.4 % Lymph % (Auto) 14.5 % Carroll % (Auto) 9.0 % Eos % (Auto) 0.0 % Baso % (Auto) 0.0 % Immature Gran # (Auto) 0.07 H (0.00-0.02) K/uL Neut # (Auto) 4.66 (1.4-6.5) K/uL Lymph # (Auto) 0.90 L (1.2-3.4) K/uL Carroll # (Auto) 0.56 (0.11-0.59) K/uL Eos # (Auto) 0.00 (0-0.5) K/uL Baso # (Auto) 0.00 (0-0.2) K/uL PT 10.3 (9.0-12.0) Seconds INR 1.0 (0.9-1.1) APTT 21.3 (21.0-31.0) Seconds PTT Ratio 0.8 Sodium 140 (136-145) mmol/L Potassium 3.9 (3.5-5.1) mmol/L Chloride 108 H (98-107) mmol/L Carbon Dioxide 27 (21-32) mmol/L Anion Gap 5.0 (3-11) BUN 14 (7-18) mg/dl Creatinine 0.80 (0.6-1.4) mg/dl Est Cr Clr Drug Dosing 116.1 ml/min Est GFR ( Amer) 125.0 Est GFR (Non-Af Amer) 107.9 BUN/Creatinine Ratio 17.1 (10-20) Glucose 108 H (70-99) mg/dl Calcium 9.2 (8.5-10.1) mg/dl Total Bilirubin 0.6 (0.2-1) mg/dl AST 13 L (15-37) U/L ALT 42 (12-78) U/L Alkaline Phosphatase 59 (45-117) U/L Troponin I < 0.015 (0-0.045) ng/ml Total Protein 6.8 (6.4-8.2) gm/dl Albumin 3.8 (3.4-5.0) gm/dl Globulin 3.0 (2.5-4.0) gm/dl Albumin/Globulin Ratio 1.3 (0.9-2) Influenza Type A (PCR) (Neg) Influenza Type B (PCR) (Neg) 09/17/19 Range/Units 19:40 WBC (4.8-10.8) K/uL RBC (4.7-6.1) M/uL Hgb (14.0-18.0) g/dL Hct (42-52) % MCV (80-100) fL MCH (25-34) pg MCHC (32-36) g/dL RDW Std Deviation (36.4-46.3) fL RDW Coeff of Ligia (11.5-14.5) % Plt Count (130-400) K/uL MPV (7.4-10.4) fL Immature Gran % (Auto) % Neut % (Auto) % Lymph % (Auto) % Carroll % (Auto) % Eos % (Auto) % Baso % (Auto) % Immature Gran # (Auto) (0.00-0.02) K/uL Neut # (Auto) (1.4-6.5) K/uL Lymph # (Auto) (1.2-3.4) K/uL Carroll # (Auto) (0.11-0.59) K/uL Eos # (Auto) (0-0.5) K/uL Baso # (Auto) (0-0.2) K/uL PT (9.0-12.0) Seconds INR (0.9-1.1) APTT (21.0-31.0) Seconds PTT Ratio Sodium (136-145) mmol/L Potassium (3.5-5.1) mmol/L Chloride (98-107) mmol/L Carbon Dioxide (21-32) mmol/L Anion Gap (3-11) BUN (7-18) mg/dl Creatinine (0.6-1.4) mg/dl Est Cr Clr Drug Dosing ml/min Est GFR ( Amer) Est GFR (Non-Af Amer) BUN/Creatinine Ratio (10-20) Glucose (70-99) mg/dl Calcium (8.5-10.1) mg/dl Total Bilirubin (0.2-1) mg/dl AST (15-37) U/L ALT (12-78) U/L Alkaline Phosphatase (45-117) U/L Troponin I (0-0.045) ng/ml Total Protein (6.4-8.2) gm/dl Albumin (3.4-5.0) gm/dl Globulin (2.5-4.0) gm/dl Albumin/Globulin Ratio (0.9-2) Influenza Type A (PCR) Neg for Influ A (Neg) Influenza Type B (PCR) Neg for Influ B (Neg) Imaging Data Radiologist's Impression: Radiology results as stated below per my review and th e radiologist's interpretation: XR chest 1V portable HISTORY: 44 years-old Male Dyspnea acute shortness of breath COMPARISON: Chest radiograph and CTA chest 08/21/2019 TECHNIQUE: Portable AP view of the chest FINDINGS: Cardiac silhouette is enlarged, unchanged. Prominence of the pulmonary arteries suggest pulmonary arterial hypertension. There is no pneumothorax, pleural effusion, focal airspace consolidation or overt pulmonary edema. Bones appear gr ossly intact. Pectus excavatum deformity. IMPRESSION: Cardiomegaly without acute process. ACT 112: Negative or not required by law. The above report was generated using voice recognition software. It may contain grammatical, syntax or spelling errors. Electronically signed by: Loco Moody M.D. 09/17/2019 7:55 PM ECG Data Attestation: I personally reviewed and interpreted this ECG as follows: Indication: + chest pain Rate (beats per minute): 78 Rhythm: + sinus rhythm ECG Intervals/blocks: + Normal QT-c ECG Horseheads: + Normal ECG ST segments: + T-wave inversions (Septal and anterior) ECG Findings: no PVCs Blood Pressure Blood Pressure Findings: Elevated blood pressure Blood Pressure Disposition: elevated BP felt to be situational MDM Narrative Patient is a 44-year-old female with a past medical history of COPD, asthma, chest pain on NOAC, pectoralis excavatum and anxiety that presents the ER for shortness of breath which is been present for the past 2 to 3 weeks. He notes the chest pain has been present for the past 24 hours. Pain is worsened with breathing. On exam is reproducible and worsened with palpation and movement of the left upper extremity. He was given steroids and one neb treatment. His tachypnea does resolve with prolonged conversation as he relaxes. IV was established blood work was obtained and showed no significant leukocytosis or anemia. INR unremarkable. BMP with a slightly elevated chloride. LFTs bilirubin and troponin were negative with symptoms have been present for greater than 6 hours. Not consistent with ACS however he did have TWI in the anterior leads on his EKG. These are new from previous. Influenza was negative. This in combination with his complaints patient would like to feel to the hospitalist. He was given aspirin and morphine. He did have improvement of his symptoms. Again I do favor that this is likely muscle skeletal but with the new EKG changes did discuss with the hospitalist. Impression & Plan Chest pain, precordial, SOB (shortness of breath), Abnormal EKG Discharge Plan Visit Data *Final* Discharge Date/Time: 09/17/19 21:40 Chief Complaint: Chest Pain Stated Complaint: sob, ears hurt, sore throat,heart hurts ED Provider: Guillermo Newby Discharge Problem: Chest pain, precordial, SOB (shortness of breath), Abnormal EKG Patient Disposition: Admitted As Inpatient Discharge Instructions Interventions: ED Discharge Assessment Last Done: 09/17/19 21:40 The scribe's documentation has been prepared under my direction and personally reviewed by me in its entirety. I confirm that the note above accurately reflects all work, treatment, procedures, and medical decision making performed by me.
[2019-09-17 23:52] LABS: Appearance Urine Clear (Clear); Bacteria Urine Automated Negative (Negative); Bilirubin Urine Negative (Negative); Blood Urine 2+ (Negative); Cast Urine Automated 0 /lpf (0-5); Color Urine Dark Yellow; Epithelial Cell Urine Auto 0-5 /lpf (0-5); Glucose Urine UA Negative (Negative); Ketones Urine Negative (Negative); Leukocyte Esterase Urine Negative (Negative); Nitrite Urine Negative (Negative); Protein Urine Negative (Negative); RBC Urine Automated >30 /hpf (0-4); Specific Gravity Urine 1.022 (1.000-1.030); Urobilinogen Urine Negative (Negative)
[2019-09-18 00:14] LABS: Calcium Oxalate Crystals Urine Present (None Prsent); Mucus Urine Present (None Prsent)
[2019-09-18] MEDS: AZELASTINE~ORDER AWAITING ACTION SCH ×4 (01:20→23:57)
[2019-09-18] MEDS: methylPREDNISolone 40 MG in SYRINGE 0 ML IV SCH ×3 (02:12→14:37)
[2019-09-18] MEDS: LEVOTHYROXINE SODIUM 25 MCG TABLET PO SCH (05:51)
[2019-09-18] MEDS: ACETYLCYSTEINE 10% INHAL SOLN 4 ML **DISPENSED BY RESP. INH SCH ×2 (07:20→17:52)
[2019-09-18] MEDS: LEVALBUTEROL HCL 1.25 MG/3 ML NEB NEB PRN ×2 (07:20→17:52)
[2019-09-18] MEDS: FLUTICASONE FUROATE 100MCG 14 PUFFS/INHALER INH SCH (08:34)
[2019-09-18] MEDS: MULTIVITAMIN TAB PO SCH (08:35)
[2019-09-18] MEDS: CALCIUM 600MG + VIT D 400 IU TAB PO SCH ×2 (08:35→20:15)
[2019-09-18] MEDS: UMECLIDINIUM/VILANTEROL 62.5/25MCG 7 PUFFS/INHALER INH SCH (08:35)
[2019-09-18] MEDS: RIVAROXABAN 20 MG TAB PO SCH (08:35)
[2019-09-18] MEDS: ASCORBIC ACID 500 MG TAB PO SCH (08:35)
[2019-09-18] MEDS: FEXOFENADINE HCL 180 MG TAB PO SCH (08:35)
[2019-09-18] MEDS: IRON POLYSACCHARIDE COMPLEX 150 MG CAPSULE PO SCH (08:36)
[2019-09-18] MEDS: PANTOprazole 40 MG TAB PO SCH (08:36)
[2019-09-18] MEDS: OMEGA-3 (PURIFIED FISH OIL) 1 GM CAP PO SCH (08:36)
[2019-09-18] MEDS: CHOLECALCIFEROL 1,000 UNITS 25 MCG TAB PO SCH (08:37)
[2019-09-18] MEDS: LORazepam 0.5 MG TAB PO PRN (08:38)
[2019-09-18 09:20] LABS: Hematocrit (blood only) 45.2 % (42-52); Hemoglobin 14.7 g/dL (14.0-18.0); Mean Corpuscular Hemoglobin 31.6 pg (25-34); Mean Corpuscular Hgb Conc 32.5 g/dL (32-36); Mean Corpuscular Volume 97.2 fL (80-100); Mean Platelet Volume 10.2 fL (7.4-10.4); Platelet Count 132 K/uL (130-400); RDW Coefficient of Variation 14.7 % (11.5-14.5); RDW Standard Deviation 51.8 fL (36.4-46.3); Red Blood Count 4.65 M/uL (4.7-6.1); White Blood Count 6.73 K/uL (4.8-10.8)
[2019-09-18] MEDS ORDERED: ATROPINE SULFATE 0.1 MG/ML 10ML SYR IV ONE (09:35)
[2019-09-18] MEDS ORDERED: METOPROLOL TARTRATE 1 MG/ML VIAL IV ONE (09:36)
[2019-09-18] MEDS ORDERED: DOBUTamine HCL 12.5 MG/ML 20 ML VIAL IV ONE (09:36)
[2019-09-18] MEDS ORDERED: ESMOLOL HCL INJ 10 MG/ML 10ML VIAL IV ONE (09:47)
[2019-09-18 09:49] LABS: Estimated Average Glucose 105 mg/dl; Hemoglobin A1C 5.3 % (4.5-5.6)
[2019-09-18 10:02] LABS: Blood Urea Nitrogen 12 mg/dl (7-18); Calcium 9.3 mg/dl (8.5-10.1); Carbon Dioxide 28 mmol/L (21-32); Chloride 105 mmol/L (98-107); Cholesterol 142 mg/dl (0-200); Creatinine Clr Calc Pharmacy 114.5 ml/min; Est GFR (Non-African American) 107.9; Glucose 173 mg/dl (70-99); Potassium 3.5 mmol/L (3.5-5.1); Sodium 140 mmol/L (136-145); Triglycerides 36 mg/dl (0-150); VLDL Cholesterol 7 mg/dl
[2019-09-18 10:08] LABS: Chol HDL Ratio 2; HDL Cholesterol 71 mg/dl; LDL Cholesterol Calculated 64 mg/dl; Troponin I < 0.015 ng/ml (0-0.045)
--- NOTE | 2019-09-18 11:22 | Electrocardiogram Report ---
Test Reason : Blood Pressure : / mmHG Vent. Rate : 078 BPM Atrial Rate : 078 BPM P-R Int : 150 ms QRS Dur : 090 ms QT Int : 366 ms P-R-T Axes : 054 -05 042 degrees QTc Int : 417 ms Poor data quality, interpretation may be adversely affected Normal sinus rhythm Possible Left atrial enlargement T wave abnormality, consider anterior ischemia Abnormal ECG When compared with ECG of 21-AUG-2019 19:51, Inverted T waves have replaced nonspecific T wave abnormality in Anterior leads Nonspecific T wave abnormality no longer evident in Lateral leads Confirmed by Marcus Lopez ([id number]) on 09/18/2019 11:22:16 AM Referred By: REFERRED SELF Confirmed By:Marcus Lopez
[2019-09-18] MEDS ORDERED: OPTIRAY 320 125ml IV PRN (12:24)
--- NOTE | 2019-09-18 12:40 | CT Scan Report ---
CT ANGIOGRAM OF THE CHEST CLINICAL HISTORY: Dyspnea. COMPARISON STUDY: Chest CT scans dated 08/21/2019 and 06/23/2017. TECHNIQUE: Following the IV administration of 120 cc of Optiray 320, CT angiogram of the chest was pe rformed from the upper abdomen to the thoracic inlet utilizing the pulmonary embolus protocol. Images are reviewed in the axial, sagittal, and coronal planes. 3-D MIPS images are created and assessed. I V contrast was administered without complication. A dose lowering technique was utilized adhering to the principles of ALARA. The examination is degraded by motion artifact. CT DOSE: 337.78 mGycm FINDINGS: Thyroid: Imaged portions of the thyroid gland are normal in size and attenuation. Thoracic aorta: The thoracic aorta is normal in caliber and demonstrates standard 3-vessel arch anato my. No dissection is seen. Pulmonary vasculature: The pulmonary trunk is dilated, measuring up to 4.1 cm in diameter. This indic ates pulmonary artery hypertension. There are no filling defects identified in main, lobar, or segmen param pulmonary branches to suggest pulmonary embolus. Evaluation of the subsegmental branches is degra ded by motion artifact. Heart: The heart is enlarged and without pericardial effusion. Lungs and pleural spaces: There is bibasilar scarring/atelectasis. No airspace consolidation or pleur al effusion is identified. The trachea and central airways are clear. Mild bronchiectasis is again no trina. Mediastinum: There is no mediastinal lymphadenopathy. Claudia: Clear. Axillae: There is no axillary lymphadenopathy. Upper abdomen: There is a small hiatal hernia. Partially visualized upper abdominal viscera is otherw ise grossly unremarkable. Skeletal structures: The skeletal structures are osteopenic. There are chronic compression deformitie s of T8, T11, and L1. There is hyperkyphosis of the thoracic spine. A pectus deformity is noted. Ther e are healed bilateral rib fractures. No lytic or blastic bony lesions are seen. IMPRESSION: 1. There is no evidence of pulmonary embolus in the main, lobar, or segmental pulmonary arteries. No change from 08/21/2019. 2. There is no airspace consolidation or pleural effusion. 3. Cardiomegaly with evidence of pulmonary artery hypertension. 4. Additional findings as above. ACT 112: Negative or not required by law. Electronically signed by: Kyler Painter M.D. 09/18/2019 12:38 PM
--- NOTE | 2019-09-18 13:23 | Hospitalist Progress Note ---
Date of Service September 18, 2019 Assessment & Plan (1) Chest pain, precordial: - EKG did show T-wave inversions on admission, now improved. - Trop negative x 3. - Stress dobutamine echo was completed, report is pending. - CT PE was negative; continue home Xarelto therapy. - Solu-medrol 40 mg IV q6hr for treatment of asthma exacerbation/costochondritis. - Is tender to palpation on exam -- likely related to musculoskeletal issue. - Follows closely with pulmonary, consulted as inpatient. (2) Bronchiectasis: - Follows closely with pulm. - Continue 2L via NC at night. - Continue Acetylcysteine BID, Anoro Ellipta, Arnuity Ellipta as prescribed. - Xopenex q4hr prn. (3) History of COPD: - Continue inhalers as noted above. (4) Pulmonary hypertension: - Noted on CT chest. - Continue 2L via NC in the evening. (5) Severe persistent asthma: - Continue Singulair as prescribed. - On Solu-medrol 40 mg IV q6hr for acute mild exacerbation - can likely convert to PO Prednisone on 09/19. (6) Hx pulmonary embolism: - Continue home Xarelto. - CT PE was negative. (7) Pectus excavatum: - Noted on exam. (8) GERD (gastroesophageal reflux disease): - PPI daily. (9) Hypothyroidism (acquired): - Continue Levothyroxine 25 mcg daily. - TSH 1.6 in May 2019. Dispo: PCU with tele for chest pain evaluation; pulm consulted and CT PE pending. Admission and Anticipated Discharge Date Admission Date: September 17, 2019 Anticipated date of discharge: 09/19/19 Supervising Physician Co-Signing Physician Notes ALANNAH Supervision Note: I did not personally see or examine the patient today, but I verified all go points of ALANNAH Decker's assessment and plan with the following exceptions/additions: UA with microscopic hematuria, calcium oxalate crystals If pain not improving, consider CT a/p r/o stone Appreciate Pulm consult Awaiting results of dobutamine stress Subjective Pt. c/o left sided chest pain this morning -- is pleuritic in nature, worse with inspiration. Has been stable on room air during the day, on 2L via NC at night. Denies shortness of breath, nausea/vomiting. Follows closely with pulm, consulted as inpatient. Review of Systems Review of Systems: All systems reviewed & are unremarkable except as noted in HPI & below Constitutional: + fatigue and + weakness; no fever and no chills Respiratory: no cough, no dyspnea, no dyspnea on exertion and no wheezing Cardiovascular: + chest pain; no radiating jaw, neck or arm pain, no palpitations and no edema Gastrointestinal: no abdominal pain, no nausea and no constipation Genitourinary: no difficulty urinating Musculoskeletal: no back pain and no joint pain Physical Exam Physical Exam: General: Resting comfortably, mild distress related to pain HEENT: NC/AT; PERRLA with EOMI; [place] conjunctiva, MMM. No erythema of posterior pharynx Neck: Supple and nontender Cardiac: Tender to palpation over left side of chest; RRR Lungs: CTA bilaterally Abdomen: Bowel normoactive X 4; Nontender to palpation Extremities: Warm. No edema present Neuro: No focal weakness Skin: No rash Results & Data ([facility]) Vital Signs (Past 12 Hours) Vital Signs Temp Pulse Pulse Resp BP BP Pulse Ox 09/18/19 10:47 36.6 C 149 H 105/64 96 09/18/19 07:41 76 09/18/19 07:25 73 22 98 09/18/19 07:02 36.1 C L 87 17 123/73 99 09/18/19 03:05 36.8 C 102 H 17 107/66 99 Laboratory Results 09/18/19 09/18/19 09/18/19 Range/Units 08:45 08:45 08:45 WBC 6.73 (4.8-10.8) K/uL RBC 4.65 L (4.7-6.1) M/uL Hgb 14.7 (14.0-18.0) g/dL Hct 45.2 (42-52) % MCV 97.2 (80-100) fL MCH 31.6 (25-34) pg MCHC 32.5 (32-36) g/dL RDW Std Deviation 51.8 H (36.4-46.3) fL RDW Coeff of Ligia 14.7 H (11.5-14.5) % Plt Count 132 (130-400) K/uL MPV 10.2 (7.4-10.4) fL Immature Gran % (Auto) % Neut % (Auto) % Lymph % (Auto) % [place] % (Auto) % Eos % (Auto) % Baso % (Auto) % Immature Gran # (Auto) (0.00-0.02) K/uL Neut # (Auto) (1.4-6.5) K/uL Lymph # (Auto) (1.2-3.4) K/uL [place] # (Auto) (0.11-0.59) K/uL Eos # (Auto) (0-0.5) K/uL Baso # (Auto) (0-0.2) K/uL PT (9.0-12.0) Seconds INR (0.9-1.1) APTT (21.0-31.0) Seconds PTT Ratio Sodium 140 (136-145) mmol/L Potassium 3.5 (3.5-5.1) mmol/L Chloride 105 (98-107) mmol/L Carbon Dioxide 28 (21-32) mmol/L Anion Gap 8.0 (3-11) BUN 12 (7-18) mg/dl Creatinine 0.80 (0.6-1.4) mg/dl Est Cr Clr Drug Dosing 114.5 ml/min Est GFR ( Amer) 125.0 Est GFR (Non-Af Amer) 107.9 BUN/Creatinine Ratio 15.0 (10-20) Glucose 173 H (70-99) mg/dl Estimat Average Glucose 105 mg/dl Hemoglobin A1c 5.3 (4.5-5.6) % Calcium 9.3 (8.5-10.1) mg/dl Total Bilirubin (0.2-1) mg/dl AST (15-37) U/L ALT (12-78) U/L Alkaline Phosphatase (45-117) U/L Troponin I < 0.015 (0-0.045) ng/ml Total Protein (6.4-8.2) gm/dl Albumin (3.4-5.0) gm/dl Globulin (2.5-4.0) gm/dl Albumin/Globulin Ratio (0.9-2) Triglycerides 36 (0-150) mg/dl Cholesterol 142 (0-200) mg/dl LDL Cholesterol, Calc 64 mg/dl VLDL Cholesterol, Calc 7 mg/dl HDL Cholesterol 71 mg/dl Cholesterol/HDL Ratio 2 Urine Color Urine Appearance (Clear) Urine pH (4.5-7.5) Ur Specific [place] (1.000-1.030) Urine Protein (Negative) Urine Glucose (UA) (Negative) Urine Ketones (Negative) Urine Blood (Negative) Urine Nitrite (Negative) Urine Bilirubin (Negative) Urine Urobilinogen (Negative) Ur Leukocyte Esterase (Negative) Urine WBC (Auto) (0-5) /hpf Urine RBC (Auto) (0-4) /hpf U Hyaline Cast (Auto) (0-5) /lpf U Epithel Cells (Auto) (0-5) /lpf Urine Bacteria (Auto) (Negative) Urine Crystals Calcium Oxalate Crystal (None Prsent) Urine Mucus (None Prsent) Influenza Type A (PCR) (Neg) Influenza Type B (PCR) (Neg) 09/18/19 09/17/19 09/17/19 Range/Units 00:37 23:15 19:40 WBC (4.8-10.8) K/uL RBC (4.7-6.1) M/uL Hgb (14.0-18.0) g/dL Hct (42-52) % MCV (80-100) fL MCH (25-34) pg MCHC (32-36) g/dL RDW Std Deviation (36.4-46.3) fL RDW Coeff of Ligia (11.5-14.5) % Plt Count (130-400) K/uL MPV (7.4-10.4) fL Immature Gran % (Auto) % Neut % (Auto) % Lymph % (Auto) % [place] % (Auto) % Eos % (Auto) % Baso % (Auto) % Immature Gran # (Auto) (0.00-0.02) K/uL Neut # (Auto) (1.4-6.5) K/uL Lymph # (Auto) (1.2-3.4) K/uL [place] # (Auto) (0.11-0.59) K/uL Eos # (Auto) (0-0.5) K/uL Baso # (Auto) (0-0.2) K/uL PT (9.0-12.0) Seconds INR (0.9-1.1) APTT (21.0-31.0) Seconds PTT Ratio Sodium (136-145) mmol/L Potassium (3.5-5.1) mmol/L Chloride (98-107) mmol/L Carbon Dioxide (21-32) mmol/L Anion Gap (3-11) BUN (7-18) mg/dl Creatinine (0.6-1.4) mg/dl Est Cr Clr Drug Dosing ml/min Est GFR ( Amer) Est GFR (Non-Af Amer) BUN/Creatinine Ratio (10-20) Glucose (70-99) mg/dl Estimat Average Glucose mg/dl Hemoglobin A1c (4.5-5.6) % Calcium (8.5-10.1) mg/dl Total Bilirubin (0.2-1) mg/dl AST (15-37) U/L ALT (12-78) U/L Alkaline Phosphatase (45-117) U/L Troponin I < 0.015 (0-0.045) ng/ml Total Protein (6.4-8.2) gm/dl Albumin (3.4-5.0) gm/dl Globulin (2.5-4.0) gm/dl Albumin/Globulin Ratio (0.9-2) Triglycerides (0-150) mg/dl Cholesterol (0-200) mg/dl LDL Cholesterol, Calc mg/dl VLDL Cholesterol, Calc mg/dl HDL Cholesterol mg/dl Cholesterol/HDL Ratio Urine Color Dark Yellow Urine Appearance Clear (Clear) Urine pH 6.0 (4.5-7.5) Ur Specific [place] 1.022 (1.000-1.030) Urine Protein Negative (Negative) Urine Glucose (UA) Negative (Negative) Urine Ketones Negative (Negative) Urine Blood 2+ H (Negative) Urine Nitrite Negative (Negative) Urine Bilirubin Negative (Negative) Urine Urobilinogen Negative (Negative) Ur Leukocyte Esterase Negative (Negative) Urine WBC (Auto) 1-5 (0-5) /hpf Urine RBC (Auto) >30 H (0-4) /hpf U Hyaline Cast (Auto) 0 (0-5) /lpf U Epithel Cells (Auto) 0-5 (0-5) /lpf Urine Bacteria (Auto) Negative (Negative) Urine Crystals Not Reportable Calcium Oxalate Crystal Present A (None Prsent) Urine Mucus Present A (None Prsent) Influenza Type A (PCR) Neg for Influ A (Neg) Influenza Type B (PCR) Neg for Influ B (Neg) 09/17/19 09/17/19 09/17/19 Range/Units 19:37 19:37 19:37 WBC 6.19 (4.8-10.8) K/uL RBC 4.59 L (4.7-6.1) M/uL Hgb 14.7 (14.0-18.0) g/dL Hct 44.1 (42-52) % MCV 96.1 (80-100) fL MCH 32.0 (25-34) pg MCHC 33.3 (32-36) g/dL RDW Std Deviation 52.2 H (36.4-46.3) fL RDW Coeff of Ligia 14.8 H (11.5-14.5) % Plt Count 136 (130-400) K/uL MPV 10.2 (7.4-10.4) fL Immature Gran % (Auto) 1.1 % Neut % (Auto) 75.4 % Lymph % (Auto) 14.5 % [place] % (Auto) 9.0 % Eos % (Auto) 0.0 % Baso % (Auto) 0.0 % Immature Gran # (Auto) 0.07 H (0.00-0.02) K/uL Neut # (Auto) 4.66 (1.4-6.5) K/uL Lymph # (Auto) 0.90 L (1.2-3.4) K/uL [place] # (Auto) 0.56 (0.11-0.59) K/uL Eos # (Auto) 0.00 (0-0.5) K/uL Baso # (Auto) 0.00 (0-0.2) K/uL PT 10.3 (9.0-12.0) Seconds INR 1.0 (0.9-1.1) APTT 21.3 (21.0-31.0) Seconds PTT Ratio 0.8 Sodium 140 (136-145) mmol/L Potassium 3.9 (3.5-5.1) mmol/L Chloride 108 H (98-107) mmol/L Carbon Dioxide 27 (21-32) mmol/L Anion Gap 5.0 (3-11) BUN 14 (7-18) mg/dl Creatinine 0.80 (0.6-1.4) mg/dl Est Cr Clr Drug Dosing 116.1 ml/min Est GFR ( Amer) 125.0 Est GFR (Non-Af Amer) 107.9 BUN/Creatinine Ratio 17.1 (10-20) Glucose 108 H (70-99) mg/dl Estimat Average Glucose mg/dl Hemoglobin A1c (4.5-5.6) % Calcium 9.2 (8.5-10.1) mg/dl Total Bilirubin 0.6 (0.2-1) mg/dl AST 13 L (15-37) U/L ALT 42 (12-78) U/L Alkaline Phosphatase 59 (45-117) U/L Troponin I < 0.015 (0-0.045) ng/ml Total Protein 6.8 (6.4-8.2) gm/dl Albumin 3.8 (3.4-5.0) gm/dl Globulin 3.0 (2.5-4.0) gm/dl Albumin/Globulin Ratio 1.3 (0.9-2) Triglycerides (0-150) mg/dl Cholesterol (0-200) mg/dl LDL Cholesterol, Calc mg/dl VLDL Cholesterol, Calc mg/dl HDL Cholesterol mg/dl Cholesterol/HDL Ratio Urine Color Urine Appearance (Clear) Urine pH (4.5-7.5) Ur Specific [place] (1.000-1.030) Urine Protein (Negative) Urine Glucose (UA) (Negative) Urine Ketones (Negative) Urine Blood (Negative) Urine Nitrite (Negative) Urine Bilirubin (Negative) Urine Urobilinogen (Negative) Ur Leukocyte Esterase (Negative) Urine WBC (Auto) (0-5) /hpf Urine RBC (Auto) (0-4) /hpf U Hyaline Cast (Auto) (0-5) /lpf U Epithel Cells (Auto) (0-5) /lpf Urine Bacteria (Auto) (Negative) Urine Crystals Calcium Oxalate Crystal (None Prsent) Urine Mucus (None Prsent) Influenza Type A (PCR) (Neg) Influenza Type B (PCR) (Neg) PG Care Time/CCT Total # of Minutes Spent Total Time Spent with Patient: Total time spent is greater than 50% in coordination of care (as documented) at patient's floor/unit and/or counseling p atient: Coding Level of Care Code 45078 Subseq Hosp Care Lvl 3 Diagnoses Chest pain, precordial R07.2 Bronchiectasis J47.9 History of COPD Z87.09 Pulmonary hypertension I27.20 Severe persistent asthma J45.50 Hx pulmonary embolism Z86.711 Pectus excavatum Q67.6 GERD (gastroesophageal reflux disease) K21.9 Hypothyroidism (acquired) E03.9
--- NOTE | 2019-09-18 14:00 | Electrocardiogram Report ---
Test Reason : Blood Pressure : / mmHG Vent. Rate : 092 BPM Atrial Rate : 092 BPM P-R Int : 154 ms QRS Dur : 088 ms QT Int : 348 ms P-R-T Axes : 062 012 049 degrees QTc Int : 430 ms Poor data quality, interpretation may be adversely affected Normal sinus rhythm Nonspecific T wave abnormality Abnormal ECG When compared with ECG of 17-SEP-2019 19:18, (unconfirmed) No significant change was found Confirmed by Marcus Lopez ([id number]) on 09/18/2019 2:00:33 PM Referred By: REFERRED SELF Confirmed By:Marcus Lopez
--- NOTE | 2019-09-18 14:39 | Pulmonary Consultation ---
Date of Consultation September 18, 2019 Assessment & Plan (1) Dyspnea: -- Dyspnea No exacerbating or relieving factors. It can occur anytime including sleep or being at rest. Patient is not hypoxic at the time patient has this feeling that he is not able to take deep breaths and he does not wheeze at that time. His hemoglobin is 14.7. His bicarb is 28 patient has never been hypercapnic in his previous ABGs. CTA chest done today personally reviewed. There patient has bronchiectasis there is no clear infiltrate appreciated, there is no pulmonary embolism appreciated. As per the patient the shortness of breath is relieved when she he takes Lorazepam. Inhalers usually does not help. Patient saturating 98% on room air at the time of examination. Patient is on Xolair which is getting biweekly now as per allergy immunology. I think his dyspnea has a central component to it along with a component of anxiety. I do not think he is an asthma exacerbation and we can taper down steroids to p.o. as of now. He is on optimal treatment for his asthma and minimal bronchiectasis which is appreciated. Patient does have pectus excavatum but I doubt that this is the reason that he is having the sudden bouts of shortness of breath and chest pain. I would recommend the patient to be seen by a neurologist and a psychiatrist. From pulmonary perspective patient is stable. 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 Morrissey. -- Pulmonary hypertension Likely type IIIII Patient has grade 1 diastolic dysfunction along with asthma and history of PE (2) Hx pulmonary embolism: (3) Chest pain, precordial: (4) Bronchiectasis: (5) Pectus excavatum: (6) Pulmonary hypertension: History of Present Illness Attending Physician: Pilar Gabriel MD History of Present Illness 44-year-old male with past medical history of asthma on on omalizumab, chronic bronchiectasis, patient is on 2 L nocturnal oxygen, history of PE on Xarelto was admitted to the hospital with complaints of non radiating precordial chest pain which is worse with deep inspiration. The pain is reproducible on palpation. Denies any history of any trauma. Did not lift anything heavy. Patient was recently started on 2 L nasal cannula to be used at night. Patient states that he is having difficulty taking breaths in. On asking if he is having pain when he takes deep breaths he denies that. Denies any palpitations. No headache, no dizziness, no nausea or vomiting. No wheezing. No fever or chills. No cough. No production of any phlegm. Denies any runny nose or tearing from the eyes. Patient has been having this shortness of breath for 5 to 6 months now. No hemoptysis, no weight gain, no night sweats. Denies any dysuria or diarrhea. The thing that helps him with the shortness of breath is lorazepam and prednisone burst what he says. States that he is compliant with his inhalers as well as Xarelto. At the time of examination on asking patient to take deep breaths it takes small breaths multiple times in order to take deep breath. Apparently patient had a sleep study done as an outpatient where he did not have any sleep apnea. But he did have hypoxia for which she was started on 2 L nasal cannula. Patient is willing to work but states that he is not able to because of his breathing. Social history: Non-smoker, no illicit drug use, no alcohol use Allergies Allergy/AdvReac Type Severity Reaction Status Date / Time gluten Allergy Mild STOMACH Verified 09/04/19 09:58 ISSUES Cipro AdvReac Intermediate issue with Verified 08/19/17 14:34 legs ciprofloxacin AdvReac Intermediate issue with Verified 09/04/19 09:58 legs oxycodone AdvReac Mild GI upset Verified 09/04/19 09:58 Home Medications Home Medications Medication Instructions Recorded Confirmed Type azelastine 1 spray INTRANASAL QAM 09/05/18 09/17/19 History calcium carbonate-vitamin D3 1 tab PO BID 09/05/18 09/17/19 History [Calcium 600 + D(3)] multivitamin 1 tab PO QAM 09/05/18 09/17/19 History Prolia 60 mg SUBCUT Q6M 10/10/18 09/17/19 History diclofenac sodium 4 g TOPICAL BID PRN 01/13/19 09/17/19 History ascorbic acid (vitamin C) 500 mg 1,000 mg PO QAM tab 03/27/19 09/17/19 History tablet cholecalciferol (vitamin D3) 50 2,000 units PO QAM cap 03/27/19 09/17/19 History mcg (2,000 unit) capsule fexofenadine 180 mg tablet 180 mg PO QAM 03/27/19 09/17/19 History ipratropium bromide 0.02 % 3 ml INHALATION Q6H PRN #150 ml 04/13/19 09/17/19 History solution for inhalation omega-3 fatty acids 1,000 mg 1,000 mg PO QAM 04/13/19 09/17/19 History capsule Trelegy Ellipta 1 puffs INH QAM 06/01/19 09/17/19 History montelukast [Singulair] 10 mg PO HS 06/01/19 09/17/19 History omeprazole 20 mg PO QAM 06/01/19 09/17/19 History acetylcysteine 100 mg/mL (10 %) 2 ml INH BID #90 ml 06/14/19 09/17/19 Rx solution Oxygen Home #1 ea 07/27/19 09/04/19 Rx lorazepam 0.5 mg tablet 0.5 mg PO TID PRN #60 tab 07/30/19 09/17/19 Rx levothyroxine 25 mcg tablet 25 mcg PO QAM #90 tab 08/10/19 09/17/19 Rx levalbuterol HCl 1.25 mg/3 mL 1.25 mg INH Q4H #360 vial 09/10/19 09/17/19 Rx solution for nebulization epinephrine [EpiPen 2-Dustin] 0.3 mg IM Q15M PRN 09/17/19 09/17/19 History levalbuterol tartrate 2 puffs INHALATION Q4H PRN 09/17/19 09/17/19 History polysaccharide iron complex 150 mg PO QAM 09/17/19 09/17/19 History [Ferrex 150] rivaroxaban [Xarelto] 20 mg PO QAM 09/17/19 09/17/19 History omalizumab 150 mg subcutaneous 150 mg SQ .COMPLEX #1 ea 09/18/19 Rx solution Patient History Medical History Bronchiectasis FOLLOWS WITH PULMONARY Chronic deep vein thrombosis of popliteal vein (Acute) Chronic reflux esophagitis (Acute) Chronic rhinitis Degenerative joint disease (DJD) of hip (Acute) Dextroscoliosis Dysfunction of both eustachian tubes (Acute) GERD (gastroesophageal reflux disease) (Chronic) H/O lymphopenia Hearing deficit HEARING AIDS Hearing loss (Acute) Herpes zoster History of undescended testicle History of wrist fracture Hx of deep venous thrombosis 2016 Hx pulmonary embolism 2016 Hypothyroidism Long-term (current) use of anticoagulants, INR goal 2.5-3.5 Malaria Osteoporosis Pectus excavatum Steroid-induced avascular necrosis of hip (Chronic) Venous insufficiency (Acute) Vitamin D deficiency (Acute) Surgical History History of ear surgery X4 History of placement of ear tubes (Acute) left ear Hx of hemorrhoidectomy S/P total hip arthroplasty (Acute) Right Family History Mother Osteoporosis Father Coronary heart disease Prostate cancer Unknown Prostate cancer Other Diabetes Heart disease Social History Preferred Language: Greenlandic Communication Ability: Effective Sales Assistant Displays Required: No Beliefs That Will Affect Care: None marital status: Current Living Situation: Spouse current occupational status: employed Other Information That Helps Us Care for You: No Feels Safe at Home: Yes Safety Concerns: Feels Safe At This Time Smoking Status: Never smoker Second Hand Exposure: No ; Hx Alcohol Use: No Hx Substance Use: No Review of Systems Review of Systems: All systems reviewed & are unremarkable except as noted in HPI & below Physical Exam Physical Exam: Constitutional: No acute distress, pectus excavatum appreciated HEENT: EOMI, PERRLA, moist mucous membranes, no stridor appreciated Respiratory system: Decreased air entry bilaterally, no wheeze, no rhonchi, no crackles CVS: S1-S2 positive, no murmurs or gallops Abdomen: Soft, nontender, nondistended, positive bowel sounds x4 Extremities: +2 pulses bilaterally radialis/ dorsalis pedis, no cyanosis, no edema, no clubbing, no rash or blisters appreciated at the site where patient is complaining of pain (left precordial) Neuro: Awake alert oriented x3 Psych: Normal mood and affect G/U: No Khan Skin: no rashes, warm and dry Lymphatic: no cervical or axillary lymphadenopathy Results & Data ([facility]) Vital Signs (Past 12 Hours) Vital Signs Temp Pulse Pulse Resp BP BP Pulse Ox 09/18/19 10:47 36.6 C 149 H 105/64 96 09/18/19 07:41 76 09/18/19 07:25 73 22 98 09/18/19 07:02 36.1 C L 87 17 123/73 99 09/18/19 03:05 36.8 C 102 H 17 107/66 99 09/18/19 08:45 09/18/19 08:45 PG Care Time/CCT Total # of Minutes Spent Total Time Spent with Patient: Total time spent is greater than 50% in coordination of care (as documented) at patient's floor/unit and/or counseling patient: C[place] [address] Inpt Consult Level 4 Patient Type Established Diagnoses Dyspnea R06.00 Hx pulmonary embolism Z86.711 Chest pain, precordial R07.2 Bronchiectasis J47.9 Pectus excavatum Q67.6 Pulmonary hypertension I27.20 Time Spent (min) 60 Comment > 50% of time was spent with patient discussing diagnosis and plan of care
[2019-09-18] MEDS: MONTELUKAST SODIUM 10 MG TABLET PO SCH (20:15)
[2019-09-19] MEDS: LEVOTHYROXINE SODIUM 25 MCG TABLET PO SCH (05:29)
[2019-09-19] MEDS: ACETYLCYSTEINE 10% INHAL SOLN 4 ML **DISPENSED BY RESP. INH SCH ×2 (07:00→19:15)
[2019-09-19] MEDS: LEVALBUTEROL HCL 1.25 MG/3 ML NEB NEB PRN ×4 (07:01→19:15)
[2019-09-19 07:09] LABS: Hematocrit (blood only) 44.2 % (42-52); Hemoglobin 14.8 g/dL (14.0-18.0); Mean Corpuscular Hemoglobin 31.9 pg (25-34); Mean Corpuscular Hgb Conc 33.5 g/dL (32-36); Mean Corpuscular Volume 95.3 fL (80-100); Mean Platelet Volume 10.3 fL (7.4-10.4); Platelet Count 156 K/uL (130-400); RDW Coefficient of Variation 14.8 % (11.5-14.5); RDW Standard Deviation 51.6 fL (36.4-46.3); Red Blood Count 4.64 M/uL (4.7-6.1); White Blood Count 10.84 K/uL (4.8-10.8)
[2019-09-19 07:47] LABS: BUN Creatinine Ratio 28.1 (10-20); Calcium 9.4 mg/dl (8.5-10.1); Creatinine Clr Calc Pharmacy 85.4 ml/min; Est GFR (African American) 101.2; Est GFR (Non-African American) 87.3; Potassium 3.8 mmol/L (3.5-5.1)
[2019-09-19] MEDS: AZELASTINE~ORDER AWAITING ACTION SCH ×3 (08:30→23:45)
[2019-09-19] MEDS: UMECLIDINIUM/VILANTEROL 62.5/25MCG 7 PUFFS/INHALER INH SCH (08:31)
[2019-09-19] MEDS: FLUTICASONE FUROATE 100MCG 14 PUFFS/INHALER INH SCH (08:31)
[2019-09-19] MEDS: PANTOprazole 40 MG TAB PO SCH (08:33)
[2019-09-19] MEDS: MULTIVITAMIN TAB PO SCH (08:33)
[2019-09-19] MEDS: CALCIUM 600MG + VIT D 400 IU TAB PO SCH ×2 (08:33→20:30)
[2019-09-19] MEDS: RIVAROXABAN 20 MG TAB PO SCH (08:33)
[2019-09-19] MEDS: ASCORBIC ACID 500 MG TAB PO SCH (08:33)
[2019-09-19] MEDS: IRON POLYSACCHARIDE COMPLEX 150 MG CAPSULE PO SCH (08:33)
[2019-09-19] MEDS: FEXOFENADINE HCL 180 MG TAB PO SCH (08:33)
[2019-09-19] MEDS: CHOLECALCIFEROL 1,000 UNITS 25 MCG TAB PO SCH (08:34)
[2019-09-19] MEDS: OMEGA-3 (PURIFIED FISH OIL) 1 GM CAP PO SCH (08:34)
[2019-09-19] MEDS: LORazepam 0.5 MG TAB PO PRN (08:42)
[2019-09-19] MEDS ORDERED: methylPREDNISolone 40 MG in SYRINGE 0 ML IV SCH (09:00)
--- NOTE | 2019-09-19 10:45 | CT Scan Report ---
CT SCAN OF THE ABDOMEN AND PELVIS WITHOUT IV CONTRAST CLINICAL HISTORY: Flank pain. Hematuria. COMPARISON STUDY: Abdominal CT dated 04/13/2018. TECHNIQUE: CT scan of the abdomen and pelvis is performed from the lung bases to the proximal femora. Images are reviewed in the axial, sagittal, and coronal planes. IV contrast was not administered for this examination as per the referring clinician. A dose lowering technique was utilized adhering to the principles of ALARA. CT DOSE: 347.01 mGy.cm FINDINGS: Lung bases: The heart is enlarged and without pericardial effusion. There are scattered coronary senia ry calcifications. A small hiatal hernia is noted. The lung bases are clear noting bibasilar scarring /atelectasis. Liver: The unenhanced liver is normal in size, contour, and attenuation. There is no intrahepatic deedee iary ductal dilatation. Gallbladder: Unremarkable. Spleen: Normal in size and attenuation. Pancreas: Unremarkable. Adrenal glands: Unremarkable. Kidneys: The unenhanced kidneys are normal in size and without hydronephrosis. There is a 3 mm nonobs tructing left renal calculus. There is no evidence of contour deforming renal mass lesion. Abdominal vasculature: The abdominal aorta is normal in course and caliber noting mild atheroscleroti c calcification. Bowel: There is no bowel obstruction. Moderate constipation is observed. A fat-containing umbilical h ernia contains a nonobstructed segment of small bowel. The appendix is well-visualized and normal. Peritoneum: There is no intraperitoneal free air or abdominal ascites. A fat-containing umbilical her luis carlos contains a segment of small bowel. Lymphadenopathy: None. Pelvic viscera: Evaluation of the pelvis is degraded by streak artifact from a right hip arthroplasty . The bladder is decompressed and grossly unremarkable. The prostate and seminal vesicles are normal as visualized. There is asymmetric atrophy of the right pelvic musculature as compared to left. Skeletal structures: The skeletal structures are osteopenic. A pectus deformity is noted. There is mi ld lumbosacral spondylosis and scoliosis. There are mild chronic compression deformities of T11, L1, and L4. There are healed left-sided rib fractures. A right hip arthroplasty is in place, and there is chronic deformity of the right bony pelvis. There is evidence of avascular necrosis of the left femo ral head. No lytic or blastic lesions are seen. IMPRESSION: 1. There are no acute infectious or inflammatory findings in the abdomen or pelvis. 2. There is a small nonobstructing left renal calculus. 3. Cardiomegaly. 4. Moderate constipation. 5. There is evidence of avascular necrosis of the left femoral head. 6. An umbilical hernia contains a nonobstructed segment of small bowel. 7. Additional findings as above. ACT 112: Negative or not required by law. Electronically signed by: Kyler Painter M.D. 09/19/2019 10:44 AM
--- NOTE | 2019-09-19 14:22 | Hospitalist Progress Note ---
Date of Service September 19, 2019 Assessment & Plan (1) Chest pain, precordial: Patient presented with several days of left-sided chest pain that is reproducible over the left pectoralis muscle - EKG did show T-wave inversions on admission in the anterior leads, now improved. - Trop negative x 3. - Stress dobutamine echo was normal/without evidence of ischemia - CT ANGIOGRAM OF THE CHEST TO RULE OUT PE was negative; continue home Xarelto therapy. - Solu-medrol 40 mg IV q6hr for treatment of asthma exacerbation/costochondritis was started but then steroids recommended to be discontinued by pulmonology -No further treatment needed-gave reassurance likely musculoskeletal - Follows closely with pulmonary, consulted as inpatient-appreciate recommendations-recommends following up with outpatient pulmonary (2) SOB (shortness of breath): Chronic for many decades related to pectus excavatum, has restrictive lung disease related to such With pulmonary hypertension He has had normal pulse ox throughout the day, but still feels he needs to wear oxygen via nasal cannula No hypercapnia on ABG Patient reports this has worsened in the last several weeks and is not responsive to bronchodilators, steroid treatment He has tried lorazepam which he does not think helps much -Seen by pulmonology here who thinks that his asthma is well controlled, and thinks this is a central cause of dyspnea versus related to anxiety -Patient adamant that he does not have anxiety but he is willing to trial clonazepam 0.25 mg p.o. once daily-can titrate up as needed -Continue home acetylcysteine twice daily,Trelegy inhaler, levalbuterol as needed -With possibility of a central cause of dyspnea-we will order MRI of the brain with and without contrast, no need for neurology consultation unless something is abnormal on that scan (3) Bronchiectasis: - Follows closely with pulm. - Continue 2L via NC at night. - Continue Acetylcysteine BID, Anoro Ellipta, Arnuity Ellipta as prescribed. - Xopenex q4hr prn. (4) History of COPD: - Continue inhalers as noted above. (5) Pulmonary hypertension: With evidence on echocardiogram and CT of the chest Pulmonary states likely type IIIII Patient has grade 1 diastolic dysfunction along with asthma and history of PE - Continue 2L via NC in the evening. (6) Severe persistent asthma: - Continue Singulair as prescribed. -no steroids indicated as per pulmonology-have been discontinued -Treatment otherwise as above (7) Hx pulmonary embolism: - Continue home Xarelto. - CT CHEST TO RULE OUT PE was negative. (8) Pectus excavatum: - Noted as above (9) GERD (gastroesophageal reflux disease): -Continue PPI daily. (10) Hypothyroidism (acquired): - Continue Levothyroxine 25 mcg daily. - TSH 1.6 in May 2019. (11) Atrial tachycardia: Paroxysmal atrial tachycardia with rates in the 120s to 130s today, did not cause him symptoms over his baseline -Consider adding beta-rl however his blood pressures have been soft -Continue telemetry monitoring (12) DVT prophylaxis: Xarelto Disposition-remain on PCU for persistent dyspnea work-up Admission and Anticipated Discharge Date Admission Date: September 18, 2019 Anticipated date of discharge: 09/20/19 Subjective Patient continues to experience episodic severe shortness of breath. When I first walked in the room he seemed fairly comfortable, but when he saw me, he began hyperventilating. When he is asked to take deep breaths for examination, he stutters and inspiration. He states that the left-sided chest pain continues to come and go. Telemetry with normal sinus rhythm with rates in the 80s to 100s, as well as an atrial tachycardia with rates into the 120s and 130s paroxysmal Review of Systems Review of Systems: All systems reviewed & are unremarkable except as noted in HPI & below Physical Exam Constitutional: + thin (Appears much older than given age) Eyes: + anicteric sclerae; no nystagmus Neck: trachea midline, no thyromegaly Respiratory: able to speak in complete sentences and + tachypneic (Intermittently); no cough Auscultation: lungs clear to auscultation bilaterally; no crackles, no rhonchi and no wheezes Cardiovascular: Rate/Rhythm: regular rhythm and + tachycardic Heart Sounds: no murmur Extremities: + varicosities; no edema Chest (Breasts): Chest: + abnormal inspection of chest (Pectus excavatum deformity-fairly severe) Breast: + abnormal palpation of breast (Positive tenderness palpation of the left pectoralis muscle just above the nipple, no mass palpated) Gastrointestinal (Abdomen): normal bowel sounds, soft, nontender, no hepatosplenomegaly Musculoskeletal: Extremities: no cyanosis and no clubbing Skin: no rashes, warm and dry Neurologic: moves all extremities and awake; no focal motor deficits Psychiatric: Orientation: alert and oriented x 3 Affect: + anxious affect Lymphatic: no lymphedema Results & Data ([facility]) Vital Signs (Past 12 Hours) Vital Signs Temp Pulse Pulse Resp BP Pulse Ox 09/19/19 11:13 37.0 C 80 17 105/69 97 09/19/19 07:19 99 H 09/19/19 07:08 36.9 C 93 H 18 103/68 97 09/19/19 07:01 92 H 16 96 09/19/19 03:44 36.7 C 86 18 111/65 97 Laboratory Results 09/19/19 09/19/19 Range/Units 06:17 06:16 WBC 10.84 H (4.8-10.8) K/uL RBC 4.64 L (4.7-6.1) M/uL Hgb 14.8 (14.0-18.0) g/dL Hct 44.2 (42-52) % MCV 95.3 (80-100) fL MCH 31.9 (25-34) pg MCHC 33.5 (32-36) g/dL RDW Std Deviation 51.6 H (36.4-46.3) fL RDW Coeff of Ligia 14.8 H (11.5-14.5) % Plt Count 156 (130-400) K/uL MPV 10.3 (7.4-10.4) fL Sodium 141 (136-145) mmol/L Potassium 3.8 (3.5-5.1) mmol/L Chloride 105 (98-107) mmol/L Carbon Dioxide 30 (21-32) mmol/L Anion Gap 6.0 (3-11) BUN 29 H D (7-18) mg/dl Creatinine 1.03 (0.6-1.4) mg/dl Est Cr Clr Drug Dosing 85.4 ml/min Est GFR ( Amer) 101.2 Est GFR (Non-Af Amer) 87.3 BUN/Creatinine Ratio 28.1 H (10-20) Glucose 92 (70-99) mg/dl Calcium 9.4 (8.5-10.1) mg/dl PG Care Time/CCT Total # of Minutes Spent Total Time Spent with Patient: Total time spent is greater than 50% in coordination of care (as documented) at patient's floor/unit and/or counseling patient: Coding Level of Care Code 23215 Subseq Hosp Care Lvl 3 Diagnoses Chest pain, precordial R07.2 SOB (shortness of breath) R06.02 Bronchiectasis J47.9 History of COPD Z87.09 Pulmonary hypertension I27.20 Severe persistent asthma J45.50 Hx pulmonary embolism Z86.711 Pectus excavatum Q67.6 GERD (gastroesophageal reflux disease) K21.9 Hypothyroidism (acquired) E03.9 Atrial tachycardia I47.1 DVT prophylaxis Z29.9
[2019-09-19] MEDS: clonazePAM 0.5 MG TAB PO SCH (14:37)
--- NOTE | 2019-09-19 17:29 | Pulmonology Progress Note ---
Date of Service September 19, 2019 Assessment & Plan (1) Dyspnea: -- Dyspnea No exacerbating or relieving factors. It can occur anytime including sleep or being at rest. Patient is not hypoxic at the time patient has this feeling that he is not able to take deep breaths and he does not wheeze at that time. His hemoglobin is 14.7. His bicarb is 28 patient has never been hypercapnic in his previous ABGs. CTA chest 09/18/19 : There patient has bronchiectasis there is no clear infiltrate appreciated, there is no pulmonary embolism appreciated. As per the patient the shortness of breath is relieved when he takes Lorazepam. Patient is on Xolair which is getting biweekly now as per allergy immunology. I think his dyspnea has a central component to it along with a component of anxiety. I do not think he is an asthma exacerbation . DC steroids. He is on optimal treatment for his asthma and for his bronchiectasis. Patient does have pectus excavatum but I doubt that this is the reason that he is having the sudden bouts of shortness of breath and chest pain. I would recommend the patient to be seen by a neurologist and a psychiatrist. From pulmonary perspective patient is stable. 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 Morrissey. -- Pulmonary hypertension Likely type IIIII Patient has grade 1 diastolic dysfunction along with asthma and history of PE No further recommendations from pulmonary perspective. Will sign off recall if needed. Please note the above document was generated using voice recognition software. It may contain grammatical, syntax or spelling errors. (2) Hx pulmonary embolism: (3) Chest pain, precordial: (4) Bronchiectasis: (5) Pectus excavatum: (6) Pulmonary hypertension: Subjective Patient seen and examined at bedside. No acute distress. Patient said he again had the episode where he was having difficulty breathing early in the morning. Still complains of left-sided pain which is reproducible. Denies any cough, no headache, no palpitations, no dizziness, no nausea, no vomiting. There is no triggering factor for his shortness of breath it just comes suddenly. Review of Systems Review of Systems: All systems reviewed & are unremarkable except as noted in HPI & below Physical Exam Physical Exam: Constitutional: No acute distress, pectus excavatum appreciated HEENT: EOMI, PERRLA, moist mucous membranes, no stridor appreciated Respiratory system: Decreased air entry bilaterally, no wheeze, no rhonchi, no crackles CVS: S1-S2 positive, no murmurs or gallops Abdomen: Soft, nontender, nondistended, positive bowel sounds x4 Extremities: +2 pulses bilaterally radialis/ dorsalis pedis, no cyanosis, no edema, no clubbing, no rash or blisters appreciated at the site where patient is complaining of pain (left precordial) Neuro: Awake alert oriented x3 Psych: Normal mood and affect G/U: No Khan Skin: no rashes, warm and dry Lymphatic: no cervical or axillary lymphadenopathy Results & Data ([facility]) Vital Signs (Past 12 Hours) Vital Signs Temp Pulse Pulse Resp BP BP Pulse Ox 09/19/19 15:23 103 H 18 97 09/19/19 15:14 36.8 C 108 H 19 115/68 97 09/19/19 14:49 103 H 09/19/19 11:13 37.0 C 80 17 105/69 97 09/19/19 07:19 99 H 09/19/19 07:08 36.9 C 93 H 18 103/68 97 09/19/19 07:01 92 H 16 96 09/19/19 06:17 09/19/19 06:16 PG Care Time/CCT Total # of Minutes Spent Total Time Spent with Patient: Total time spent is greater than 50% in coordination of care (as documented) at patient's floor/unit and/or counseling patient: Coding Level of Care Code 99556 Subseq Hosp Care Lvl 3 Diagnoses Dyspnea R06.00 Hx pulmonary embolism Z86.711 Chest pain, precordial R07.2 Bronchiectasis J47.9 Pectus excavatum Q67.6 Pulmonary hypertension I27.20
[2019-09-19] MEDS: MONTELUKAST SODIUM 10 MG TABLET PO SCH (20:30)
[2019-09-19] MEDS ORDERED: GADOBUTROL 65ML VIAL IV PRN (23:08)
[2019-09-20] MEDS: LEVOTHYROXINE SODIUM 25 MCG TABLET PO SCH (06:32)
[2019-09-20] MEDS: LEVALBUTEROL HCL 1.25 MG/3 ML NEB NEB PRN (07:08)
[2019-09-20] MEDS: ACETYLCYSTEINE 10% INHAL SOLN 4 ML **DISPENSED BY RESP. INH SCH (07:08)
--- NOTE | 2019-09-20 07:23 | Magnetic Resonance Report ---
MR brain wo/w con HISTORY: 44 years-old Male dyspnea,r/o central cause acute shortness of breath with possible neurolo gic cause. Remote history of prior dizziness COMPARISON: Head CT 07/28/2018 TECHNIQUE: Multiplanar multisequence MRI the brain was obtained both with and without the use of 6.5 mL Gadavist FINDINGS: Software Applications Architect localizer images demonstrate no gross extracranial abnormality. There is no restricted diffusio n to suggest acute or subacute infarction. Midline structures including the corpus callosum, brainste m, optic chiasm, pituitary and pineal glands appear unremarkable on the sagittal T1 series. Study is motion degraded. No cerebellar tonsillar herniation. Low-lying cerebellar tonsils. Degenerative richardson es of the imaged cervical spine are noted. No acute intracranial hemorrhage, midline shift, abnormal extra axial collection, hydrocephalus or in tracranial mass. The brain parenchyma is unremarkable without significant T2/FLAIR signal abnormaliti es. There are a few scattered punctate foci of T2/FLAIR prolongation within the subcortical white mat ter of the cerebral hemispheres, likely of no clinical significance. No abnormal intra-axial or extra -axial enhancement. A few mildly prominent perivascular spaces are incidentally noted. The major flow voids at the level of the skull base appear unremarkable. Right mastoid effusion. Mild polypoid muco victor m thickening of the right maxillary sinus. Leftward bowing and spurring of the nasal septum with mi ld mucosal thickening of the nasal turbinates. Findings suggest prior bilateral lens replacement. The skull and soft tissues are unremarkable. IMPRESSION: 1. No acute intracranial abnormality. 2. No abnormal enhancement. 3. There are a few scattered punctate foci of T2/FLAIR prolongation within the subcortical white michele er of the bilateral frontal hemispheres, likely of no clinical significance. Differential considerati ons would include gliosis from chronic migraines versus early chronic microvascular ischemic disease. ACT 112: Negative or not required by law. The above report was generated using voice recognition software. It may contain grammatical, syntax o r spelling errors. Electronically signed by: Loco Moody M.D. 09/20/2019 7:22 AM
[2019-09-20 07:56] LABS: BUN Creatinine Ratio 27.8 (10-20); Calcium 8.7 mg/dl (8.5-10.1); Creatinine Clr Calc Pharmacy 103.4 ml/min; Est GFR (African American) 120.8; Est GFR (Non-African American) 104.2; Potassium 3.7 mmol/L (3.5-5.1)
[2019-09-20] MEDS: AZELASTINE~ORDER AWAITING ACTION SCH (08:10)
[2019-09-20] MEDS: MULTIVITAMIN TAB PO SCH (08:11)
[2019-09-20] MEDS: FEXOFENADINE HCL 180 MG TAB PO SCH (08:11)
[2019-09-20] MEDS: CALCIUM 600MG + VIT D 400 IU TAB PO SCH (08:11)
[2019-09-20] MEDS: OMEGA-3 (PURIFIED FISH OIL) 1 GM CAP PO SCH (08:12)
[2019-09-20] MEDS: PANTOprazole 40 MG TAB PO SCH (08:12)
[2019-09-20] MEDS: ASCORBIC ACID 500 MG TAB PO SCH (08:12)
[2019-09-20] MEDS: FLUTICASONE FUROATE 100MCG 14 PUFFS/INHALER INH SCH (08:13)
[2019-09-20] MEDS: RIVAROXABAN 20 MG TAB PO SCH (08:13)
[2019-09-20] MEDS: IRON POLYSACCHARIDE COMPLEX 150 MG CAPSULE PO SCH (08:13)
[2019-09-20] MEDS: UMECLIDINIUM/VILANTEROL 62.5/25MCG 7 PUFFS/INHALER INH SCH (08:13)
[2019-09-20] MEDS: CHOLECALCIFEROL 1,000 UNITS 25 MCG TAB PO SCH (08:14)
[2019-09-20] MEDS: clonazePAM 0.5 MG TAB PO SCH (08:24)
[2019-09-20] MEDS ORDERED: DOCUSATE SODIUM 100 MG CAP PO SCH (10:45)
[2019-09-20] MEDS ORDERED: clonazePAM 0.5 MG TAB PO STA (11:08)
--- NOTE | 2019-09-20 13:09 | Electrocardiogram Report ---
Test Reason : Blood Pressure : / mmHG Vent. Rate : 103 BPM Atrial Rate : 103 BPM P-R Int : 146 ms QRS Dur : 088 ms QT Int : 330 ms P-R-T Axes : 045 -20 059 degrees QTc Int : 432 ms Sinus tachycardia T wave abnormality, consider anterior ischemia Abnormal ECG When compared with ECG of 17-SEP-2019 21:05, No significant change was found Confirmed by Marcus Lopez ([id number]) on 09/20/2019 1:08:40 PM Referred By: REFERRED SELF Confirmed By:Marcus Lopez
--- NOTE | 2019-09-20 14:01 | Discharge Summary ---
Date of Service September 20, 2019 Admission HPI Per Admitting Provider 44 y/o male presented to the ED with non-radiating chest pain from 0630 am. The pain is worse with deep inspiration. Apparently the patient has chronic chest pain, however, this is worse than usual. He also complains of not being able to take a deep breath. His POX is 98% on RA. The patient does where 2L nc overnight. No fever or chills. No cough, runny nose, N/V/D, or recent travel. He has history of asthma. He uses Xarelto for hx of PE. Principal Diagnosis Musculoskeletal chest pain, Dyspnea-acute on chronic, secondary to anxiety Discharge Exam Constitutional + thin (Appears much older than given age) Eyes + anicteric sclerae; no nystagmus Neck trachea midline, no thyromegaly Respiratory able to speak in complete sentences and + tachypneic (Intermittently); no cough Auscultation: lungs clear to auscultation bilaterally; no crackles, no rhonchi and no wheezes Cardiovascular Rate/Rhythm: regular rhythm and + tachycardic Heart Sounds: no murmur Extremities: + varicosities; no edema Chest (Breasts) Chest: + abnormal inspection of chest (Pectus excavatum deformity-fairly severe) Breast: + abnormal palpation of breast (Positive tenderness palpation of the left pectoralis muscle just above the nipple, no mass palpated) Gastrointestinal (Abdomen) normal bowel sounds, soft, nontender, no hepatosplenomegaly Musculoskeletal Extremities: no cyanosis and no clubbing Skin no rashes, warm and dry Neurologic moves all extremities and awake; no focal motor deficits Psychiatric Orientation: alert and oriented x 3 Affect: + anxious affect Lymphatic no lymphedema Discharge Data Allergies Allergy/AdvReac Type Severity Reaction Status Date / Time gluten Allergy Mild STOMACH Verified 09/28/19 10:51 ISSUES Cipro AdvReac Intermediate issue with Verified 08/19/17 14:34 legs ciprofloxacin AdvReac Intermediate issue with Verified 09/28/19 10:51 legs oxycodone AdvReac Mild GI upset Verified 09/28/19 10:51 Consultations 09/17/19 20:41 ED Decision to Admit Stat 09/18/19 11:16 Consult Pulmonology Routine Ordered Studies 09/18/19 11:33 CT angio chest PE protocol Routine 09/19/19 09:43 CT abd pelvis wo con Urgent 09/19/19 21:40 MR brain wo/w con Routine Dobutamine Stress ECHO CXR Hospital Course (1) Chest pain, precordial: Patient presented with several days of left-sided chest pain that is reproducible over the left pectoralis muscle - EKG did show T-wave inversions on admission in the anterior leads, now improved. - Trop negative x 3. - Stress dobutamine echo was normal/without evidence of ischemia - CT ANGIOGRAM OF THE CHEST TO RULE OUT PE was negative; continue home Xarelto therapy. - Solu-medrol 40 mg IV q6hr for treatment of asthma exacerbation/costochondritis was started but then steroids recommended to be discontinued by pulmonology -No further treatment needed-gave reassurance likely musculoskeletal - Follows closely with pulmonary, consulted as inpatient-appreciate recommendations-recommends following up with outpatient pulmonary (2) SOB (shortness of breath): Chronic for many decades related to pectus excavatum, has restrictive lung disease related to such With pulmonary hypertension He has had normal pulse ox throughout the day, but still feels he needs to wear oxygen via nasal cannula No hypercapnia on ABG Patient reports this has worsened in the last several weeks and is not responsive to bronchodilators, steroid treatment He has tried lorazepam which he does not think helps much -Seen by pulmonology here who thinks that his asthma is well controlled, and thinks this is a central cause of dyspnea versus related to anxiety -Patient adamant that he does not have anxiety but he is willing to trial clonazepam --> initially gave 0.25 mg p.o. once daily-can titrate up as needed--> was increased to 0.5mg bid on discharge -Continue home acetylcysteine twice daily,Trelegy inhaler, levalbuterol as needed -With possibility of a central cause of dyspnea- ordered MRI of the brain with and without contrast which was negative, no need for neurology consultation -advised close f/u with PCP, Pulm--> pt denies that he has any anxiety related to his breathing (3) Bronchiectasis: - Follows closely with pulm. - Continue 2L via NC at night. - Continue Acetylcysteine BID, Anoro Ellipta, Arnuity Ellipta as prescribed. - Xopenex q4hr prn. (4) History of COPD: - Continue inhalers as noted above. (5) Pulmonary hypertension: With evidence on echocardiogram and CT of the chest Pulmonary states likely type IIIII Patient has grade 1 diastolic dysfunction along with asthma and history of PE - Continue 2L via NC in the evening. (6) Severe persistent asthma: - Continue Singulair as prescribed. -no steroids indicated as per pulmonology-have been discontinued -Treatment otherwise as above (7) Hx pulmonary embolism: - Continue home Xarelto. - CT CHEST TO RULE OUT PE was negative. (8) Pectus excavatum: - Noted as above (9) GERD (gastroesophageal reflux disease): -Continue PPI daily. (10) Hypothyroidism (acquired): - Continue Levothyroxine 25 mcg daily. - TSH 1.6 in May 2019. (11) Atrial tachycardia: Paroxysmal atrial tachycardia with rates in the 120s to 130sm briefly on one day after receving IV steroids--> did not cause him symptoms over his baseline -Considered adding beta-rl however his blood pressures have been soft asnd could not tolerate this -none further after steroids discontinued (12) DVT prophylaxis: Xarelto Disposition-stable for dc to home and f/u with PCP Total Time Total Time Spent Total Time Spent (In Minutes): 40 min Total Time Includes: Examination of the Patient, Discharge Planning and Medication Reconciliation Discharge Plan Discharge Items Patient Disposition: Home - Self-Care Reason For Visit: CHEST PAIN Discharge Diagnosis: Musculoskeletal chest pain, Shortness of breath Condition on Discharge: Fair Activity: Resume your previous activity Exercise/Sports: Gradually increase as tolerated Non-emergency contact: Primary Care Provider and Iridologist Call non-emergency contact if: you have any medication questions and your symptoms worsen Follow-up/Referrals: Ammon Roger PA-C [Physician Architectural Associate] - 09/27/19 9:15 am (Please follow up with [facility] Pul[facility] at [facility] with Santiago Roger PA-C on September 27 at 9:15 am. *If you are unable to keep this appointment, please call the office to re- schedule at [phone].) Jefe Adorno MD [Primary Care Provider] - 09/26/19 11:00 am (Please follow up with [facility] Internal Medicine at [facility] with Renee Rey PA-C on TuesdaySeptember 26 at 11:00 am. *If you are unable to keep this appointment, please call the office to re- schedule at [phone].) Diet: Regular Addtl Attending Provider Instructions: You had an extensive workup for your shortness of breath and chest pain. The chest pain is thought to be muscular in nature and can be treated with heating pad application or tylenol. You had a CT angiogram of the chest to rule out blood clots and this was negative for blood clot, no pneumonia, and no other abnormality to explain your pain or shortness of breath was found. You had blood work and a stress test of the heart which showed you did not have a heart attack and no heart disease. You do have a mild dilation of the right side of your heart and pulmonary hypertension which is from your chronic lung issues. Your oxygen levels were normal on room air even with your episodes of shortness of breath. You had a CT scan of your abdomen/pelvis which showed a small 3 mm left kidney stone that was not causing a blockage, but you did have some microscopic blood in your urine. This should be followed up on by your PCP and may require a referral to the Urologist. You were seen by the Iridologist here who thought your breathing difficulties were mostly from anxiety. Your asthma and bronchiectasis are under good control. You were started on clonazepam to see if this helps your shortness of breath. Please follow up with your PCP and Pulmonology for this. Continue all of your other usual medications. Pending Studies at Discharge: No Stand-Alone Forms: Call Back Authorization, My [facility] Medications and DC Order Prescriptions: New acetaminophen [Mapap (acetaminophen)] 325 mg Tablet 650 mg PO Q4H PRN (Reason: pain) Qty: 30 RF: 0 clonazepam 0.5 mg Tablet 0.5 mg PO BID Qty: 20 RF: 0 Continued acetylcysteine 100 mg/mL (10 %) solution 2 ml INH BID Qty: 90 RF: 6 (DME) Oxygen Home Liters Per Minute See Rx Instructions .ROUTE .MEDSUPPLY Qty: 1 RF: 0 levothyroxine 25 mcg tablet 25 mcg PO QAM Qty: 90 RF: 3 levalbuterol HCl 1.25 mg/3 mL solution for nebulization 1.25 mg INH Q4H Qty: 360 RF: 1 Xolair 150 mg recon soln 150 mg SQ .COMPLEX Qty: 1 RF: 11 ipratropium bromide 0.02 % solution 3 ml inhalation Q6H PRN (Reason: Shortness Of Breath Or Wheezing) Qty: 150 RF: 0 ascorbic acid (vitamin C) 500 mg tablet 1,000 mg PO QAM RF: 0 cholecalciferol (vitamin D3) 2,000 unit capsule 2,000 units PO QAM RF: 0 omega-3 fatty acids [Fish Oil Concentrate] 1,000 mg capsule 1,000 mg PO QAM RF: 0 multivitamin Tablet 1 tab PO QAM RF: 0 azelastine 137 mcg (0.1 %) aerosol,spray 1 spray Intranasal QAM RF: 0 calcium carbonate-vitamin D3 [Calcium 600 + D(3)] 600 mg(1,500mg) -400 unit Tablet 1 tab PO BID RF: 0 fexofenadine [Dilma Allergy] 180 mg tablet 180 mg PO QAM RF: 0 omeprazole 20 mg capsule,delayed release(DR/EC) 20 mg PO QAM RF: 0 montelukast [Singulair] 10 mg tablet 10 mg PO HS RF: 0 Trelegy Ellipta 100-62.5-25 mcg blister with device 1 puffs INH QAM RF: 0 polysaccharide iron complex [Ferrex 150] 150 mg iron capsule 150 mg PO QAM RF: 0 Xarelto 20 mg tablet 20 mg PO QAM RF: 0 epinephrine [EpiPen 2-Dustin] 0.3 mg/0.3 mL auto-injector 0.3 mg IM Q15M PRN (Reason: Anaphylaxis) RF: 0 levalbuterol tartrate 45 mcg/actuation HFA aerosol inhaler 2 puffs INHALATION Q4H PRN (Reason: Shortness Of Breath Or Wheezing) RF: 0 Prolia 60 mg/mL Syringe 60 mg subcut Q6M RF: 0 diclofenac sodium 1 % Gel 4 g TOPICAL BID PRN (Reason: Pain) RF: 0 No Action (DME) nebulizer accessories Kit See Rx Instructions .ROUTE .MEDSUPPLY Qty: 1 RF: 5 docusate sodium 100 mg capsule 100 mg PO DAILY RF: 0 Discharge Orders: Discharge Order (Routine); Ordered 09/20/19 Ordered By: Pilar Gabriel Admission Data Admit Date/Time: 09/17/19 20:55 Attending Provider: Pilar Gabriel Admit Provider: Cheo Montenegro Primary Care Provider: Jefe Adorno Other Providers: Agustin Wray Other Interventions: Discharge Summary Assessment (RN) Last Done: 09/20/19 14:04 DC Date/Time DO NOT enter until pt leaves facility: 09/20/19 15:15 Coding Level of Care Code 46484 OBS Care - Discharge Diagnoses Chest pain, precordial R07.2 SOB (shortness of breath) R06.02 Bronchiectasis J47.9 History of COPD Z87.09 Pulmonary hypertension I27.20 Severe persistent asthma J45.50 Hx pulmonary embolism Z86.711 Pectus excavatum Q67.6 GERD (gastroesophageal reflux disease) K21.9 Hypothyroidism (acquired) E03.9 Atrial tachycardia I47.1 DVT prophylaxis Z29.9
[2019-09-20] MEDS ORDERED: clonazePAM 0.5 MG TAB PO SCH (21:00)
--- NOTE | 2019-09-21 10:03 | Coding Query ---
CODING QUERY To promote full compliance with coding requirements relating to patient care, provider participation is requested in all cases of [employer] uncertainty. Please assist us with the question(s) below: Coding Question(s): 1. Please clarify below, in your clinical opinion, regarding the most likely etiology of the chest pain. ( ) Costochondritis ( ) Asthma Exacerbation ( x ) Musculoskeletal Unspecified ( ) Anxiety ( ) Other: Please Specify ( ) Unknown 2. There is documentation of treatment of Asthma Exacerbation with steroids recommended to be discontinued by Pulmonary. Please clarify below, regarding Asthma Exacerbation. ( ) Possible Asthma Exacerbation was treated ( x ) Asthma Exacerbation was Ruled-Out ( ) Other: Please Specify Physician's Response(s): Thank you Trupti Bolaños Principal Diagnosis: "that condition established after study, to be chiefly responsible for occasioning the admission of the patient to the hospital for care." Co-Existing Principal Diagnosis: "when two or more diagnoses equally meet the criteria for principal diagnosis as determined by the circumstances of admission, diagnostic work up, and/or therapy provided, and the Alphabetic Index, Tabular List, or another coding guideline does not provide sequencing direction, any one of the diagnoses may be sequenced first." "When the physician has documented what appears to be a current diagnosis in the body of the record, but has not included the diagnosis in the final diagnostic statement, the physician should be asked whether the diagnosis should be added." (Source Coding Clinic 2 QTR90. p3-4) GUILLERMINA
== END 2019-09-20 15:15 | disposition home or self-care (01) | DRG 313 ==
LOC: 2S 19:08 → ED 19:08 → SUATTDRO 20:55 → 2S 21:40

== ENCOUNTER 2020-04-14 19:43 | Observation (INO) ==
[2020-04-14] MEDS ORDERED: ALBUT/IPRATROP 3MG/0.5MG NEB 3 ML VIAL NEB STA (20:05)
[2020-04-14] MEDS ORDERED: NITROGLYCERIN 2% OINTMENT 30GM TUBE EXT STA (20:05)
--- NOTE | 2020-04-14 20:16 | Emergency Department Note ---
History of Present Illness General Chief complaint: Shortness of Breath/Dyspnea Stated complaint: SOB,WEAKNESS,SLIGHT CHEST DISCOMFORT Time Seen by Provider: 04/14/20 19:54 Source: patient and family History of Present Illness Provider complaint: Chest pain Onset (ago): day(s) Location: chest and left Radiation: non-radiation Severity: moderate Pain Consistency: + intermittent Maximum Pain Intensity: 5 Quality: + aching and + dull Exacerbated By: + other (Breathing) Associated symptoms: + shortness of breath; no cough, no diaphoresis, no fever/chills and no nausea/vomiting This is a 45-year-old male with a history of COPD and pectus excavatum presenting with chest pain since yesterday. The patient has been short of breath for about 2 weeks. 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 He was placed on prednisone. He was supposed to be on Augmentin but the prescription was sent via mail and so he never took it. He is presenting today because he has developed chest pain since yesterday. He describes it as a dull ache on the left side of his chest. He notices it when he starts to have difficulty breathing. He states that he has had this intermittently for a year. His noticed that it was much worse today and it was frequently clutching the left side of his chest. It is not associated with any diaphoresis or lightheadedness. He does not notice it more with exertion. He did see his rural mail contractor he wanted to do a cardiac catheterization but due to his multiple medical problems he was not a candidate for catheterization. He does think that he had a chemical stress test in September of this year which was unremarkable. He has had no fevers, cough or cold symptoms, abdominal pain, diarrhea or loss of taste or smell or any known exposure to COVID-19. He has been using his nebulizer at home but has not had any relief with it. He does state that he uses oxygen and BiPAP when he sleeps. Home Medications Home Medications Medication Instructions Recorded Confirmed Type azelastine 1 spray INTRANASAL QA 09/05/18 04/14/20 History calcium carbonate-vitamin D3 1 tab PO BID 09/05/18 04/14/20 History [Calcium 600 + D(3)] multivitamin 1 tab PO QAM 09/05/18 04/14/20 History Prolia 60 mg SUBCUT Q6M 10/10/18 04/14/20 History diclofenac sodium 4 g TOPICAL BID PRN 01/13/19 04/14/20 History ascorbic acid (vitamin C) 500 mg 1,000 mg PO QAM tab 03/27/19 04/14/20 History tablet cholecalciferol (vitamin D3) 50 2,000 units PO QAM cap 03/27/19 04/14/20 History mcg (2,000 unit) capsule fexofenadine 180 mg tablet 180 mg PO QAM 03/27/19 04/14/20 History ipratropium bromide 0.02 % 3 ml INHALATION Q6H PRN #150 ml 04/13/19 04/14/20 History solution for inhalation omega-3 fatty acids 1,000 mg 1,000 mg PO QAM 04/13/19 04/14/20 History capsule epinephrine [EpiPen 2-Dustin] 0.3 mg IM Q15M PRN 09/17/19 04/14/20 History polysaccharide iron complex 150 mg PO QAM 09/17/19 04/14/20 History [Ferrex 150] docusate sodium 100 mg capsule 100 mg PO DAILY cap 09/28/19 04/14/20 History levalbuterol HCl 1.25 mg/3 mL 1.25 mg INH Q4H #540 vial 10/02/19 04/14/20 Rx solution for nebulization levothyroxine 25 mcg tablet 25 mcg PO QAM #90 tab 10/24/19 04/14/20 Rx montelukast 10 mg tablet 10 mg PO HS #90 tab 11/09/19 04/14/20 Rx omeprazole 20 mg capsule,delayed 40 mg PO QAM #90 cap 11/09/19 04/14/20 Rx release rivaroxaban 20 mg tablet 20 mg PO QAM #90 tab 01/16/20 04/14/20 Rx Xolair 150 mg SQ UD 01/17/20 04/14/20 History clonazepam 0.5 mg tablet 0.5 mg PO TID PRN 90 Days #180 tab 02/28/20 04/14/20 Rx fluticasone fur. 100 mcg-umeclid 1 puffs INH QAM #1 inhaler 02/28/20 04/14/20 Rx 62.5 mcg-vilant 25 mcg inhalat.powder levalbuterol tartrate 45 2 puffs INHALATION Q4H PRN #45 gm 02/28/20 04/14/20 Rx mcg/actuation aerosol inhaler diltiazem HCl 60 mg tablet 60 mg PO HS #90 tab 03/31/20 04/14/20 Rx prednisone 10 mg tablet See Rx Instructions PO DAILY #36 04/07/20 04/14/20 Rx tab acetylcysteine 2 ml INH QAM 04/14/20 04/14/20 History Allergies Allergy/AdvReac Type Severity Reaction Status Date / Time gluten Allergy Mild STOMACH Verified 03/31/20 11:28 ISSUES Cipro AdvReac Intermediate issue with Verified 08/19/17 14:34 legs ciprofloxacin AdvReac Intermediate issue with Verified 03/31/20 11:28 legs oxycodone AdvReac Mild GI upset Verified 03/31/20 11:28 Past Med/Surg History Medical History Atrial tachycardia Bronchiectasis FOLLOWS WITH PULMONARY Chronic deep vein thrombosis of popliteal vein Chronic reflux esophagitis Chronic rhinitis Degenerative joint disease (DJD) of hip Dextroscoliosis Dysfunction of both eustachian tubes GERD (gastroesophageal reflux disease) H/O lymphopenia Hearing deficit HEARING AIDS Hearing loss Herpes zoster History of undescended testicle History of wrist fracture Hx of deep venous thrombosis 2016 Hx pulmonary embolism 2016 Hypothyroidism Long-term (current) use of anticoagulants, INR goal 2.5-3.5 Malaria Osteoporosis Pectus excavatum Right ventricular enlargement Steroid-induced avascular necrosis of hip Venous insufficiency Vitamin D deficiency Surgical History History of ear surgery X4 History of placement of ear tubes left ear Hx of hemorrhoidectomy S/P total hip arthroplasty Right Family History Mother Osteoporosis Father Coronary heart disease Prostate cancer Unknown Prostate cancer Other Diabetes Heart disease Social History Smoking Status: Never smoker Second Hand Exposure: No; Hx Alcohol Use: No Hx Substance Use: No Preferred Language: Egyptian Communication Ability: Effective Visual Impairment: No Limitations Hearing Ability: Use of Hearing Aid Condominium Property Manager Required: No Beliefs That Will Affect Care: None marital status: Current Living Situation: Spouse current occupational status: employed Feels Safe at Home: Yes Review of Systems See HPI for pertinent positives & negatives. and A total of 10 systems reviewed and were otherwise negative Physical Exam Vital Signs Vital Signs - 24 hr 04/14/20 19:46 04/14/20 20:21 04/14/20 20:23 Temperature 37.1 C Temperature Source Oral Pulse Rate 92 H Pulse Rate [Finger] 90 Pulse Rate from SpO2 Sensor Respiratory Rate 18 18 Respiratory Effort / Characteristics Non-Labored Accessory Muscle Use Labored Non-Labored Spontaneous Respiratory Depth Normal Blood Pressure 124/72 Blood Pressure Mean 89 Pulse Oximetry 95 96 Oxygen Delivery Method Room Air Room Air Sepsis Recent Fever Within 48 Hours No Sepsis New/Unexplained Change in Mental Status N/A Sepsis Action Taken by Nursing No Action Required 04/14/20 20:28 04/14/20 20:30 04/14/20 21:00 Temperature Temperature Source Pulse Rate 92 H 93 H Pulse Rate [Finger] Pulse Rate from SpO2 Sensor 85 94 H Respiratory Rate 22 19 Respiratory Effort / Characteristics Respiratory Depth Blood Pressure 116/71 119/72 Blood Pressure Mean 82 104 Pulse Oximetry 96 94 94 Oxygen Delivery Method Room Air Sepsis Recent Fever Within 48 Hours Sepsis New/Unexplained Change in Mental Status Sepsis Action Taken by Nursing 04/14/20 21:30 Temperature Temperature Source Pulse Rate 92 H Pulse Rate [Finger] Pulse Rate from SpO2 Sensor 87 Respiratory Rate 21 Respiratory Effort / Characteristics Respiratory Depth Blood Pressure 120/82 Blood Pressure Mean 91 Pulse Oximetry 95 Oxygen Delivery Method Sepsis Recent Fever Within 48 Hours Sepsis New/Unexplained Change in Mental Status Sepsis Action Taken by Nursing Constitutional: Vital signs reviewed. He is hypophonic. Eyes: Pupils are equal round reactive to light. Conjunctiva are noninjected. ENT: Pharynx is clear without erythema or exudate. Mucous membranes are moist. Neck supple without meningeal signs. Respiratory: Clear to auscultation bilaterally with few scattered expiratory wheezes. Breath sounds are equal bilaterally. Unable to speak in full sentences. Cardiovascular: Regular rate and rhythm. No rubs or gallops. GI: Soft, distended and nontender. Bowel sounds are present. Musculoskeletal: No peripheral edema. No lower extremity tenderness. Significant pectus excavatum. Integumentary: No cyanosis. or jaundice. Neurological: The patient is awake and alert. No focal deficits. Psychiatric: Anxious appearing. Course Administered Medications Discontinued Medications Albuterol (Albut/Ipratrop 3mg/0.5mg Neb 3 Ml Vial) 3 ml NEB NOW STA Stop: 04/14/20 20:06 Last Admin: 04/14/20 20:22 Dose: 3 ml Documented by: [id number] Sodium Chloride (Nss 1000ml) 500 mls @ 999 mls/hr IV .Q31M ONE Stop: 04/14/20 21:30 Last Infusion: 04/14/20 21:39 Dose: 0 mls/hr Documented by: [id number] Admin: 04/14/20 21:09 Dose: 999 mls/hr Documented by: [id number] Methylprednisolone (Methylprednisolone 125 Mg/2 Ml Vial) 60 mg IV NOW STA Stop: 04/14/20 20:20 Last Admin: 04/14/20 20:52 Dose: 60 mg Documented by: [id number] Nitroglycerin (Nitroglycerin 2% Ointment 30gm Tube) 0.5 inch EXT NOW STA Stop: 04/14/20 20:06 Last Admin: 04/14/20 20:52 Dose: 1 inch Documented by: [id number] Medical Decision Making Differential Diagnosis COPD exacerbation, pneumonia, pneumothorax, unstable angina, HI Medical Records Attestation: I reviewed the patient's medical records. The patient was seen here 3 days ago for shortness of breath. He had a work-up here including a CT angiogram of the chest which did not show any signs of consolidation or pulmonary embolism. He did have cardiomegaly and pulmonary artery hypertension. Home Medications Current Medication List: was personally reviewed by me Laboratory Data Attestation: I reviewed the patient's lab results. Result diagrams: 04/14/20 20:21 04/14/20 20:21 Lab Results 04/14/20 04/14/20 04/14/20 Range/Units 20:21 20:21 20:21 WBC 5.70 (4.8-10.8) K/uL RBC 4.40 L (4.7-6.1) M/uL Hgb 13.8 L (14.0-18.0) g/dL Hct 42.2 (42-52) % MCV 95.9 (80-100) fL MCH 31.4 (25-34) pg MCHC 32.7 (32-36) g/dL RDW Std Deviation 54.3 H (36.4-46.3) fL RDW Coeff of Ligia 15.4 H (11.5-14.5) % Plt Count 144 (130-400) K/uL MPV 10.1 (7.4-10.4) fL Immature Gran % (Auto) 3.0 % Neut % (Auto) 79.1 % Lymph % (Auto) 9.6 % [place] % (Auto) 8.1 % Eos % (Auto) 0.0 % Baso % (Auto) 0.2 % Neut # (Auto) 4.51 (1.4-6.5) K/uL Lymph # (Auto) 0.55 L (1.2-3.4) K/uL [place] # (Auto) 0.46 (0.11-0.59) K/uL Eos # (Auto) 0.00 (0-0.5) K/uL Baso # (Auto) 0.01 (0-0.2) K/uL Immature Gran # (Auto) 0.17 H (0.00-0.02) K/uL PT 11.1 (9.0-12.0) Seconds INR 1.1 (0.9-1.1) APTT 23.2 (21.0-31.0) Seconds PTT Ratio 0.8 Sodium 142 (136-145) mmol/L Potassium 4.0 (3.5-5.1) mmol/L Chloride 107 (98-107) mmol/L Carbon Dioxide 26 (21-32) mmol/L Anion Gap 9.0 (3-11) BUN 17 (7-18) mg/dl Creatinine 0.81 (0.6-1.4) mg/dl Est Cr Clr Drug Dosing Not Reportable Est GFR ( Amer) 123.5 Est GFR (Non-Af Amer) 106.6 BUN/Creatinine Ratio 20.9 H (10-20) Glucose 165 H (70-99) mg/dl Calcium 8.6 (8.5-10.1) mg/dl Total Bilirubin 0.5 (0.2-1) mg/dl AST 24 (15-37) U/L ALT 69 (12-78) U/L Alkaline Phosphatase 63 (45-117) U/L Troponin I < 0.015 (0-0.045) ng/ml Total Protein 6.6 (6.4-8.2) gm/dl Albumin 3.4 (3.4-5.0) gm/dl Globulin 3.2 (2.5-4.0) gm/dl Albumin/Globulin Ratio 1.0 (0.9-2) Imaging Data Attestation: I personally reviewed and interpreted this imaging study as follows: My Impression: Chest x-ray per my interpretation shows no acute cardiopulmonary process. ECG Data Attestation: I personally reviewed and interpreted this ECG as follows: Indication: + chest pain Rate (beats per minute): 91 Rhythm: + normal sinus ECG Intervals/blocks: + Incomplete right bundle branch block ECG ST segments: + ST depression (Anterior) and + T-wave inversions; no ST kevin vation ECG Findings: no PVCs Comparison ECG Date: from (04/11/2020) Change: the following changes noted (New T wave inversions in leads V5 and V6) Additional Comments: Repeat twelve-lead EKG per my interpretation shows normal sinus rhythm at a rate of 98 bpm. He has a persistent incomplete right bundle branch block. He has persistent T wave inversions although that he is now upright in V6. He does have persistent ST depressions anteriorly. Blood Pressure Blood Pressure Findings: Elevated blood pressure Blood Pressure Disposition: Referred to patients primary care provider [facility] Narrative I did evaluate the patient as noted above. IV access was established. I did treat the patient with a DuoNeb. He was also given Solu-Medrol 60 mg IV. I did treat him with nitroglycerin paste. I did place an order for continuous cardiac monitoring. The monitor showed normal sinus rhythm at a rate of 92 bpm. I did order and personally review the patient's 12-lead EKG as described above. The patient has new T wave inversions in leads V5 and V6. He does have T wave inversions in the inferior and other precordial leads but they were present on his previous EKG. he does have ST depressions anteriorly. I did order and personally reviewed the images of the patient's chest x-ray as described above. There is no evidence of pneumonia. I did order and review the patient's blood work as noted in the electronic medical record. His blood work is unremarkable. He has no leukocytosis. Electrolytes are unremarkable. Troponin is negative. I did reassess the patient. He has some slight improvement of his chest pain with nitroglycerin, although he states it was just placed on him. I did have a repeat EKG performed. The EKG per my interp retation as noted above shows persistent T wave changes although his T wave is upright in lead V6. He does have ST depressions persisting. His lungs are clear to auscultation on reexamination. I later reassessed him and he said his chest pain was improving further but he still had some slight pain. He will be hospitalized for further evaluation. The case was discussed with the case worker and the hospitalist was informed. Impression & Plan Chest pain, Abnormal ECG, Acute dyspnea Discharge Plan Visit Data Chief Complaint: Shortness of Breath/Dyspnea Stated Complaint: SOB,WEAKNESS,SLIGHT CHEST DISCOMFORT ED Provider: Arnaud Bourgeois Discharge Problem: Chest pain, Abnormal ECG, Acute dyspnea Patient Disposition: Being Evaluated by Hospitalist Forms Stand Alone Forms: My [facility] [address] Prescriptions Prescriptions: No Action levalbuterol HCl 1.25 mg/3 mL solution for nebulization 1.25 mg INH Q4H Qty: 540 RF: 1 levothyroxine 25 mcg tablet 25 mcg PO QAM Qty: 90 RF: 3 montelukast [Singulair] 10 mg tablet 10 mg PO HS Qty: 90 RF: 1 omeprazole 20 mg capsule,delayed release(DR/EC) 40 mg PO QAM Qty: 90 RF: 1 Xarelto 20 mg tablet 20 mg PO QAM Qty: 90 RF: 3 levalbuterol tartrate 45 mcg/actuation HFA aerosol inhaler 2 puffs INHALATION Q4H PRN (Reason: Shortness Of Breath Or Wheezing) Qty: 45 RF: 1 clonazepam 0.5 mg tablet 0.5 mg PO TID PRN (Reason: shortness of breath or wheezing) 90 Days Qty: 180 RF: 0 Trelegy Ellipta 100-62.5-25 mcg blister with device 1 puffs INH QAM Qty: 1 RF: 4 diltiazem HCl 60 mg tablet 60 mg PO HS Qty: 90 RF: 1 prednisone 10 mg tablet See Rx Instructions PO DAILY Qty: 36 RF: 0 ipratropium bromide 0.02 % solution 3 ml inhalation Q6H PRN (Reason: Shortness Of Breath Or Wheezing) Qty: 150 RF: 0 docusate sodium 100 mg capsule 100 mg PO DAILY RF: 0 ascorbic acid (vitamin C) 500 mg tablet 1,000 mg PO QAM RF: 0 cholecalciferol (vitamin D3) 2,000 unit capsule 2,000 units PO QAM RF: 0 omega-3 fatty acids [Fish Oil Concentrate] 1,000 mg capsule 1,000 mg PO QAM RF: 0 multivitamin Tablet 1 tab PO QAM RF: 0 azelastine 137 mcg (0.1 %) aerosol,spray 1 spray Intranasal QAM RF: 0 calcium carbonate-vitamin D3 [Calcium 600 + D(3)] 600 mg(1,500mg) -400 unit Tablet 1 tab PO BID RF: 0 fexofenadine [Dilma Allergy] 180 mg tablet 180 mg PO QAM RF: 0 polysaccharide iron complex [Ferrex 150] 150 mg iron capsule 150 mg PO QAM RF: 0 epinephrine [EpiPen 2-Dustin] 0.3 mg/0.3 mL auto-injector 0.3 mg IM Q15M PRN (Reason: Anaphylaxis) RF: 0 Xolair 150 mg recon soln 150 mg SQ UD RF: 0 acetylcysteine 100 mg/mL (10 %) solution 2 ml INH QAM RF: 0 Prolia 60 mg/mL Syringe 60 mg subcut Q6M RF: 0 diclofenac sodium 1 % Gel 4 g TOPICAL BID PRN (Reason: Pain) RF: 0 Referrals Referrals: Jefe Adorno MD [Primary Care Provider] - Discharge Problem: Chest pain Qualifiers: Chest pain type: unspecified Qualified Code(s): R07.9 - Chest pain, unspecified
[2020-04-14] MEDS ORDERED: methylPREDNISolone 125 MG/2 ML VIAL IV STA (20:19)
[2020-04-14 20:31] LABS: Basophils # (auto) 0.01 K/uL (0-0.2); Basophils % (auto) 0.2 %; Hematocrit (blood only) 42.2 % (42-52); Hemoglobin 13.8 g/dL (14.0-18.0); Immature Granulocytes # (auto) 0.17 K/uL (0.00-0.02); Lymphocytes # (auto) 0.55 K/uL (1.2-3.4); Lymphocytes % (auto) 9.6 %; Mean Corpuscular Hemoglobin 31.4 pg (25-34); Mean Corpuscular Hgb Conc 32.7 g/dL (32-36); Mean Corpuscular Volume 95.9 fL (80-100); Mean Platelet Volume 10.1 fL (7.4-10.4); Monocytes # (auto) 0.46 K/uL (0.11-0.59); Monocytes % (auto) 8.1 %; Neutrophils # (auto) 4.51 K/uL (1.4-6.5); Neutrophils % (auto) 79.1 %; Platelet Count 144 K/uL (130-400); RDW Coefficient of Variation 15.4 % (11.5-14.5); RDW Standard Deviation 54.3 fL (36.4-46.3)
[2020-04-14 20:42] LABS: INR 1.1 (0.9-1.1); Partial Thromboplastin Ratio 0.8; Partial Thromboplastin Time 23.2 Seconds (21.0-31.0); Prothrombin Time 11.1 Seconds (9.0-12.0)
[2020-04-14 20:47] LABS: Alanine Aminotransferase 69 U/L (12-78); Albumin Level 3.4 gm/dl (3.4-5.0); Aspartate Aminotransferase 24 U/L (15-37); BUN Creatinine Ratio 20.9 (10-20); Blood Urea Nitrogen 17 mg/dl (7-18); Calcium 8.6 mg/dl (8.5-10.1); Carbon Dioxide 26 mmol/L (21-32); Chloride 107 mmol/L (98-107); Est GFR (African American) 123.5; Est GFR (Non-African American) 106.6; Glucose 165 mg/dl (70-99); Sodium 142 mmol/L (136-145)
[2020-04-14 20:52] LABS: Alkaline Phosphatase 63 U/L (45-117); Bilirubin,Total 0.5 mg/dl (0.2-1); Globulin 3.2 gm/dl (2.5-4.0); Total Protein 6.6 gm/dl (6.4-8.2); Troponin I < 0.015 ng/ml (0-0.045)
[2020-04-14] MEDS ORDERED: SODIUM CHLORIDE 0.9% 1000ML 500 ML IV ONE (21:00)
--- NOTE | 2020-04-14 23:50 | History & Physical Report ---
Date of Service April 14, 2020 Assessment & Plan (1) SOB (shortness of breath): 45-year-old man with past medical history of chronic bronchiectasis, COPD, asthma, osteoporosis, status post hip replacement of right hip with chronic bursitis, hearing loss, vocal cord dysfunction, pectus excavatum, who presents with progressive dyspnea and chest pain on deep inspiration Chest pain Exacerbated by deep inspiration, does not appear to be exertional in nature though it was relieved by nitro ECG changes including ST depressions in lateral T wave inversions Has never had a cardiac cath, no major risk factors, but does have multiple comorbidities and history of blood clots Patient currently anticoagulated on Xarelto, will hold Xarelto tomorrow morning and start heparin drip at that time Trending troponin x3 initial negative in ED Echo in a.m. Nitro as needed for chest pain ECG with any new chest pain Pain appears to be pulmonary in nature, possibly secondary to his pectus excavated him musculoskeletal with deep inspiration Shortness of breath Patient has been having progressive shortness of breath, given history of COPD we will treat as such Given Solu-Medrol in ED, 40 mg prednisone for a.m. p.o. Azithromycin IV x3 days Continue home inhalers and DuoNebs as needed CTA showing no consolidation and no emboliPro-Tommy negative Hip pain Patient with chronic bursitis, had injection recently but still having bad pain especially when weightbearing feels like this is worse than it has ever been We will check hip x-ray to make sure prosthesis in place and no other abnormalities Anxiety Continuing clonazepam 0.5 mg 3 times daily as needed F/E/N: Heart healthy diet DVT prophylaxis: Currently anticoagulated on Xarelto, will hold Xarelto for next dose and start patient on heparin drip Dis p.o.: Admit to telemetry for chest pain rule out and COPD exacerbation Full code (2) Chest pain: (3) Weakness: (4) Abnormal ECG: (5) Acute dyspnea: (6) Vocal cord dysfunction: (7) Hx of deep venous thrombosis: (8) Cylindrical bronchiectasis: (9) Right ventricular enlargement: (10) Pulmonary hypertension: (11) Hx pulmonary embolism: (12) Trochanteric bursitis of right hip: History of Present Illness Chief Complaint: Shortness of Breath Primary Care Provider: MD Nikhil Matias is a 45 year old man with a past medical history significant for asthma, chronic bronchiectasis, Pectus Excavatum, COPD, Pulmonary embolism, osteoporosis, who presents with several weeks of progressive dyspnea and chest pain particularly with deep inspiration which developed over the last several days. He frequently has shortness of breath given his underlying pulmonary issues, but he was seen by Dr. Morrissey several weeks ago and given a course of steroids which did not seem to help his dyspnea at all. He has also been having some hip pain, he does have a history of osteoporosis osteoarthritis and a hip replacement on that side. Difficult for him to bear weight on that hip secondary to pain, no instability. Also notes some markedly increased abdominal bloating when he has to breathe shallowly. Patient presented with similar symptoms three days ago. He was placed on prednisone and augmentin at that time, he had imaging performed at that time with CTA significant for NO embolism or consolidation but cardiomegaly and signs of pulmonary hypertension. He was prescribed augmentin for his symptoms but was unable to pick that up. He has no history of ischemic heart disease but has had this pain occasionally over the past year though it has gotten progressively worse in past several days. Was actually admitted in September for very similar symptoms. He denies other issues at present On presentation to ED patient was found to be oxygenating well on room air, rest of his vitals wnl apart from some more rapid shallow breathing and having difficulty taking deep breaths secondary to pain. He was given nitropaste which relieved his chest pain. He denies an exertional component to his pain. no diaphoresis, no lightheadedness or syncope, no nausea or vomiting. Labwork significant for - troponin. ECG showing new lateral T wave inversions and ST depressions. Patient denies chest pain at present time until he takes deep breaths for my exam. He's adamant that all he needs for pain control is the nitro paste. Lives with , has hearing loss and difficulty ambulating of late. Non smoker non drinker no drug use. Would like to be a full code. Allergies Allergy/AdvReac Type Severity Reaction Status Date / Time gluten Allergy Mild STOMACH Verified 03/31/20 11:28 ISSUES Cipro AdvReac Intermediate issue with Verified 08/19/17 14:34 legs ciprofloxacin AdvReac Intermediate issue with Verified 03/31/20 11:28 legs oxycodone AdvReac Mild GI upset Verified 03/31/20 11:28 Home Medications Home Medications Medication Instructions Recorded Confirmed Type azelastine 1 spray INTRANASAL QAM 09/05/18 04/14/20 History calcium carbonate-vitamin D3 1 tab PO BID 09/05/18 04/14/20 History [Calcium 600 + D(3)] multivitamin 1 tab PO QAM 09/05/18 04/14/20 History Prolia 60 mg SUBCUT Q6M 10/10/18 04/14/20 History diclofenac sodium 4 g TOPICAL BID PRN 01/13/19 04/14/20 History ascorbic acid (vitamin C) 500 mg 1,000 mg PO QAM tab 03/27/19 04/14/20 History tablet cholecalciferol (vitamin D3) 50 2,000 units PO QAM cap 03/27/19 04/14/20 History mcg (2,000 unit) capsule fexofenadine 180 mg tablet 180 mg PO QAM 03/27/19 04/14/20 History ipratropium bromide 0.02 % 3 ml INHALATION Q6H PRN #150 ml 04/13/19 04/14/20 History solution for inhalation omega-3 fatty acids 1,000 mg 1,000 mg PO QAM 04/13/19 04/14/20 History capsule epinephrine [EpiPen 2-Dustin] 0.3 mg IM Q15M PRN 09/17/19 04/14/20 History polysaccharide iron complex 150 mg PO QAM 09/17/19 04/14/20 History [Ferrex 150] docusate sodium 100 mg capsule 100 mg PO DAILY cap 09/28/19 04/14/20 History levalbuterol HCl 1.25 mg/3 mL 1.25 mg INH Q4H #540 vial 10/02/19 04/14/20 Rx solution for nebulization levothyroxine 25 mcg tablet 25 mcg PO QAM #90 tab 10/24/19 04/14/20 Rx montelukast 10 mg tablet 10 mg PO HS #90 tab 11/09/19 04/14/20 Rx omeprazole 20 mg capsule,delayed 40 mg PO QAM #90 cap 11/09/19 04/14/20 Rx release rivaroxaban 20 mg tablet 20 mg PO QAM #90 tab 01/16/20 04/14/20 Rx Xolair 150 mg SQ UD 01/17/20 04/14/20 History clonazepam 0.5 mg tablet 0.5 mg PO TID PRN 90 Days #180 tab 02/28/20 04/14/20 Rx fluticasone fur. 100 mcg-umeclid 1 puffs INH QAM #1 inhaler 02/28/20 04/14/20 Rx 62.5 mcg-vilant 25 mcg inhalat.powder levalbuterol tartrate 45 2 puffs INHALATION Q4H PRN #45 gm 02/28/20 04/14/20 Rx mcg/actuation aerosol inhaler diltiazem HCl 60 mg tablet 60 mg PO HS #90 tab 03/31/20 04/14/20 Rx prednisone 10 mg tablet See Rx Instructions PO DAILY #36 04/07/20 04/14/20 Rx tab acetylcysteine 2 ml INH QAM 04/14/20 04/14/20 History Past Med/Surg History Medical History Atrial tachycardia Bronchiectasis FOLLOWS WITH PULMONARY Chronic deep vein thrombosis of popliteal vein Chronic reflux esophagitis Chronic rhinitis Degenerative joint disease (DJD) of hip Dextroscoliosis Dysfunction of both eustachian tubes GERD (gastroesophageal reflux disease) H/O lymphopenia Hearing deficit HEARING AIDS Hearing loss Herpes zoster History of undescended testicle History of wrist fracture Hx of deep venous thrombosis 2016 Hx pulmonary embolism 2016 Hypothyroidism Long-term (current) use of anticoagulants, INR goal 2.5-3.5 Malaria Osteoporosis Pectus excavatum Right ventricular enlargement Steroid-induced avascular necrosis of hip Venous insufficiency Vitamin D deficiency Surgical History History of ear surgery X4 History of placement of ear tubes left ear Hx of hemorrhoidectomy S/P total hip arthroplasty Right Family History Mother Osteoporosis Father Coronary heart disease Prostate cancer Unknown Prostate cancer Other Diabetes Heart disease Social History Smoking Status: Never smoker Second Hand Exposure: No; Hx Alcohol Use: No Hx Substance Use: No Preferred Language: Slovak Communication Ability: Effective Visual Impairment: No Limitations Hearing Ability: Use of Hearing Aid Gynecology Teacher Required: No Beliefs That Will Affect Care: None marital status: Current Living Situation: Spouse current occupational status: employed Other Information That Helps Us Care for You: No Feels Safe at Home: Yes Safety Concerns: Feels Safe At This Time Review of Systems Review of Systems: All systems reviewed & are unremarkable except as noted in HPI & below Physical Exam Constitutional: + thin and + cachectic; + not well developed and no acute distress Eyes: PERRL, conjunctivae normal, anicteric sclerae ENMT: external ear and nose normal, oropharynx normal Respiratory: + uses accessory muscles and + cough; + abnormal respiratory effort Auscultation: lungs clear to auscultation bilaterally Cardiovascular: RRR, no murmur, no edema Heart Sounds: no click, no gallop, no murmur and no cardiac rub Vessels: normal peripheral pulses Extremities: no calf tenderness and no pedal edema Gastrointestinal (Abdomen): Inspection/Auscultation: + abdomen distended and normal bowel sounds Percussion/Palpation: abdomen soft; abdomen nontender Neurologic: PERRL, EOMI, accommodation nl, no face palsy, no dysarthria Results & Data Results & Data ([facility]) Vital Signs (Past 12 Hours) Vital Signs Temp Pulse Pulse Resp BP Pulse Ox 04/14/20 23:30 92 H 26 H 107/70 94 04/14/20 23:00 90 40 H 108/72 95 04/14/20 22:30 109/79 95 04/14/20 22:00 91 H 23 109/77 95 04/14/20 21:30 92 H 21 120/82 95 04/14/20 21:00 93 H 19 119/72 94 04/14/20 20:30 92 H 22 116/71 94 04/14/20 20:28 96 04/14/20 20:23 90 18 96 04/14/20 19:46 37.1 C 92 H 18 124/72 95 Code Status & VTE Plan VTE Prophylaxis Plan VTE Prophylaxis will be ordered: Yes Supervising Physician Co-Signing Physician Notes Attending addendum: I have physically seen this patient, have supervised the medical residents activities, and agree with the H&P unless as otherwise noted. Assessment and Plan: Precordial chest pain/abnormal EKG- The patient will be admitted to telemetry for serial cardiac enzymes, serial EKG's, cardiac rhythm monitoring and a 2-D echocardiogram with Dopplers. Convert Xarelto to heparin drip. Consult cardiology Aspirin 81 mg daily. COPD exacerbation- IV azithromycin 500 mg daily Prednisone taper Duonebs every 4 hours while awake and every 2 hours when necessary. Remaining orders and notations as noted Resident Activity Tracking Resident Involvement: Resident Care Provided Care Provided: Adult Hospital Medicine (1) Chest pain Chest pain type: unspecified Qualified Code(s): R07.9 - Chest pain, unspecified
[2020-04-14] MEDS ORDERED: clonazePAM 0.5 MG TAB PO PRN (23:53)
[2020-04-14] MEDS ORDERED: ALBUT/IPRATROP 3MG/0.5MG NEB 3 ML VIAL NEB PRN (23:53)
[2020-04-14] MEDS ORDERED: POLYETHYLENE (MIRALAX) 17 GM PACK PO PRN (23:53)
[2020-04-14] MEDS ORDERED: ACETAMINOPHEN 325 MG TAB PO PRN (23:53)
[2020-04-14] MEDS ORDERED: IPRATROPIUM BROMIDE NEB SOLN 0.02% 2.5 ML VIAL INH PRN (23:53)
[2020-04-14] MEDS ORDERED: DICLOFENAC SOD 1% GEL 100 GM TUBE EXT PRN (23:53)
[2020-04-14] MEDS ORDERED: ONDANSETRON INJ 2 MG/ML 2 ML VIAL IV PRN (23:53)
[2020-04-15] MEDS ORDERED: NITROGLYCERIN 2% OINTMENT 30GM TUBE EXT SCH
[2020-04-15] MEDS ORDERED: HEPARIN 25000 UNIT/500 ML D5W IV ONE (00:37)
[2020-04-15] MEDS: AZITHROMYCIN 500 MG in DEXTROSE 5% 250 ML IV SCH (00:47)
[2020-04-15] MEDS: NITROGLYCERIN 2% OINTMENT 30GM TUBE EXT SCH ×4 (02:00→20:16)
[2020-04-15 06:12] LABS: Basophils # (auto) 0.01 K/uL (0-0.2); Basophils % (auto) 0.2 %; Hematocrit (blood only) 42.1 % (42-52); Hemoglobin 13.7 g/dL (14.0-18.0); Immature Granulocytes # (auto) 0.16 K/uL (0.00-0.02); Immature Granulocytes % (auto) 2.4 %; Lymphocytes # (auto) 0.68 K/uL (1.2-3.4); Lymphocytes % (auto) 10.4 %; Mean Corpuscular Hemoglobin 31.1 pg (25-34); Mean Corpuscular Hgb Conc 32.5 g/dL (32-36); Mean Corpuscular Volume 95.5 fL (80-100); Mean Platelet Volume 10.2 fL (7.4-10.4); Monocytes # (auto) 0.25 K/uL (0.11-0.59); Monocytes % (auto) 3.8 %; Neutrophils # (auto) 5.47 K/uL (1.4-6.5); Neutrophils % (auto) 83.2 %; Platelet Count 134 K/uL (130-400); RDW Coefficient of Variation 15.4 % (11.5-14.5); RDW Standard Deviation 54.2 fL (36.4-46.3); Red Blood Count 4.41 M/uL (4.7-6.1); White Blood Count 6.57 K/uL (4.8-10.8)
[2020-04-15 06:41] LABS: Albumin Level 3.4 gm/dl (3.4-5.0); BUN Creatinine Ratio 21.7 (10-20); Calcium 8.8 mg/dl (8.5-10.1); Creatinine Clr Calc Pharmacy 124.4 ml/min; Est GFR (African American) 124.8; Est GFR (Non-African American) 107.7; Potassium 4.3 mmol/L (3.5-5.1)
[2020-04-15 06:46] LABS: Albumin Globulin Ratio 1.1 (0.9-2); Bilirubin,Total 0.7 mg/dl (0.2-1); Globulin 3.1 gm/dl (2.5-4.0); Total Protein 6.5 gm/dl (6.4-8.2)
[2020-04-15] MEDS: ACETYLCYSTEINE 10% INHAL SOLN 4 ML **DISPENSED BY RESP. INH SCH (07:25)
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
[2020-04-15] MEDS: predniSONE 20 MG TAB PO SCH (07:45)
[2020-04-15] MEDS: OMEGA-3 (PURIFIED FISH OIL) 1 GM CAP PO SCH (07:46)
[2020-04-15] MEDS: PANTOprazole 40 MG TAB PO SCH (07:46)
[2020-04-15] MEDS: FEXOFENADINE HCL 180 MG TAB PO SCH (07:47)
[2020-04-15] MEDS: LEVOTHYROXINE SODIUM 25 MCG TABLET PO SCH (07:47)
[2020-04-15] MEDS: DOCUSATE SODIUM 100 MG CAP PO SCH (07:47)
[2020-04-15] MEDS: IRON POLYSACCHARIDE COMPLEX 150 MG CAPSULE PO SCH (07:47)
[2020-04-15] MEDS: MULTIVITAMIN TAB PO SCH (07:47)
[2020-04-15] MEDS: CHOLECALCIFEROL 1,000 UNITS 25 MCG TAB PO SCH (07:48)
[2020-04-15] MEDS: ASCORBIC ACID 500 MG TAB PO SCH (07:49)
[2020-04-15] MEDS: CALCIUM 600MG + VIT D 400 IU TAB PO SCH ×2 (07:49→20:20)
[2020-04-15] MEDS: UMECLIDINIUM/VILANTEROL 62.5/25MCG 7 PUFFS/INHALER INH SCH (07:55)
[2020-04-15] MEDS: FLUTICASONE FUROATE 100MCG 14 PUFFS/INHALER INH SCH (07:55)
--- NOTE | 2020-04-15 07:58 | XRay Report ---
XR chest 1V portable HISTORY: Atypical Chest Pain COMPARISON: Chest CTA 04/11/2020. FINDINGS: The heart remains mildly enlarged. A few bibasilar linear densities favor scarring or atele ctasis. No new focal lung consolidations to suggest pneumonia. There is mild central pulmonary vascul ar congestion without overt edema. This is similar to the prior study. IMPRESSION: No change in cardiomegaly and mild central pulmonary vascular congestion without overt edema. ACT 112: Negative or not required by law. Electronically signed by: Lobo Wilkins M.D. 04/15/2020 7:57 AM
[2020-04-15] MEDS ORDERED: HEPARIN SODIUM/DEXTROSE 25,000 UNITS/500 ML BAG IV SCH (09:00)
[2020-04-15] MEDS ORDERED: Heparin IV Standard *NO* Bolus IV SCH (09:00)
[2020-04-15] MEDS ORDERED: NON-FORMULARY MEDICATION (Azelastine 1 SPRAYS) INTNAS SCH (09:00)
[2020-04-15] MEDS ORDERED: RIVAROXABAN 20 MG TAB PO SCH (09:00)
--- NOTE | 2020-04-15 11:18 | Cardiology Consultation ---
Date of Consultation April 15, 2020 Assessment & Plan (1) Chest pain: Patient's chest pain is certainly atypical. He claims to have had similar symptoms for a long time. He has been evaluated in the past for other symptoms of chest discomfort with noninvasive stress testing. He has not had any evidence of ischemia previously the symptoms themselves are nonexertional, described as sharp and stabbing and in the left upper pectoral axillary area. They are reproducible on examination and reportedly with deep inspiration although he did not have this difficulty today. I think given the chronicity of his symptoms, the atypical nature in the absence of objective evidence of isch emia would not advocate repeat testing for coronary disease. Perhaps his symptoms are related to his chest wall deformity. (2) Abnormal ECG: He certainly has abnormal T-waves on his EKG. However, a review of his recorded previous EKGs reveals prior T-wave inversions on other EKGs. This is a fairly nonspecific finding. I think given the otherwise atypical nature of his symptoms and absence of elevated biomarkers, I would not consider this indicative of ischemia. (3) SOB (shortness of breath): He continues to have significant shortness of breath and fatigue. There has been some concern in the past about an element of pulmonary hypertension. There was some debate previously about the necessity of a right heart catheterization. This could be performed at the patient's convenience, including today. History of Present Illness Reason for Consultation: Chest pain Requesting Physician: Genet Attending Physician: Garrison Mcrae DO History of Present Illness The patient is a 45-year-old gentleman with a longstanding history of bronchiectasis, COPD, asthma, osteoporosis and pectus excavatum who was admitted for symptoms of chest discomfort. Patient does struggle with some symptoms dyspnea. He was recently evaluated [facility] for vocal cord paralysis. The patient occasionally will use supplemental oxygen, primarily at nighttime with CPAP. However, yesterday he was in the process of moving and noticed some worsening exercise intolerance. This was described primarily as a lack of energy and fatigue. He was using some supplemental oxygen throughout the course of the day. Additionally, he noticed paroxysms of chest discomfort. Patient states that he has been struggling with symptoms of chest discomfort for a very long time. It seems this is manifest by an aching in the left axillary region. The symptoms are fairly chronic in nature and not exclusively exertional period this chronic discomfort is punctuated on occasion but more for severe episodes of discomfort. Again these episodes are not precipitated by any specific movement or activity. The generally resolve within a few minutes. Based on the recurrent nature of the symptoms in his worsening exercise intolerance he presented the emergency room where he was noted to have T-wave inversions on EKG and advised to stay overnight for observation. The patient continues to have some element of chest discomfort. He freely admits that this is somewhat worse with palpation. Does not appear to be worse with movement of the arm. It was described as worse with deep inspiration. Apparently nitroglycerin provided some relief in the emergency room. He continues to feel more dyspneic and tired than usual. He denies recent symptoms such as fevers or chills. He denies coughing recently. He has not noticed any lower extremity edema. He did not report orthopnea. Allergies Allergy/AdvReac Type Severity Reaction Status Date / Time gluten Allergy Mild STOMACH Verified 03/31/20 11:28 ISSUES Cipro AdvReac Intermediate issue with Verified 08/19/17 14:34 legs ciprofloxacin AdvReac Intermediate issue with Verified 03/31/20 11:28 legs oxycodone AdvReac Mild GI upset Verified 03/31/20 11:28 Home Medications Home Medications Medication Instructions Recorded Confirmed Type azelastine 1 spray INTRANASAL QAM 09/05/18 04/18/20 History calcium carbonate-vitamin D3 1 tab PO BID 09/05/18 04/18/20 History [Calcium 600 + D(3)] multivitamin 1 tab PO QAM 09/05/18 04/18/20 History Prolia 60 mg SUBCUT Q6M 10/10/18 04/18/20 History diclofenac sodium 4 g TOPICAL BID PRN 01/13/19 04/18/20 History ascorbic acid (vitamin C) 500 mg 1,000 mg PO QAM tab 03/27/19 04/18/20 History tablet cholecalciferol (vitamin D3) 50 2,000 units PO QAM cap 03/27/19 04/18/20 History mcg (2,000 unit) capsule fexofenadine 180 mg tablet 180 mg PO QAM 03/27/19 04/18/20 History ipratropium bromide 0.02 % 3 ml INHALATION Q6H PRN #150 ml 09/06/19 09/11/20 History solution for inhalation omega-3 fatty acids 1,000 mg 1,000 mg PO QAM 04/13/19 04/18/20 History capsule epinephrine [EpiPen 2-Dustin] 0.3 mg IM Q15M PRN 09/17/19 04/18/20 History polysaccharide iron complex 150 mg PO QAM 09/17/19 04/18/20 History [Ferrex 150] docusate sodium 100 mg capsule 100 mg PO DAILY cap 09/28/19 04/18/20 History levalbuterol HCl 1.25 mg/3 mL 1.25 mg INH Q4H #540 vial 10/02/19 04/18/20 Rx solution for nebulization levothyroxine 25 mcg tablet 25 mcg PO QAM #90 tab 10/24/19 04/18/20 Rx montelukast 10 mg tablet 10 mg PO HS #90 tab 11/09/19 04/18/20 Rx omeprazole 20 mg capsule,delayed 40 mg PO QAM #90 cap 11/09/19 04/18/20 Rx release rivaroxaban 20 mg tablet 20 mg PO QAM #90 tab 01/16/20 04/18/20 Rx Xolair 150 mg SQ UD 01/17/20 04/18/20 History clonazepam 0.5 mg tablet 0.5 mg PO TID PRN 90 Days #180 tab 02/28/20 04/18/20 Rx fluticasone fur. 100 mcg-umeclid 1 puffs INH QAM #1 inhaler 02/28/20 04/18/20 Rx 62.5 mcg-vilant 25 mcg inhalat.powder levalbuterol tartrate 45 2 puffs INHALATION Q4H PRN #45 gm 02/28/20 04/18/20 Rx mcg/actuation aerosol inhaler diltiazem HCl 60 mg tablet 60 mg PO HS #90 tab 03/31/20 04/18/20 Rx acetylcysteine 2 ml INH QAM 04/14/20 04/18/20 History prednisone 10 mg tablet 10 mg PO .COMPLEX tab 04/18/20 04/18/20 History Patient History Medical History Atrial tachycardia Bronchiectasis FOLLOWS WITH PULMONARY Chronic deep vein thrombosis of popliteal vein Chronic reflux esophagitis Chronic rhinitis Degenerative joint disease (DJD) of hip Dextroscoliosis Dysfunction of both eustachian tubes GERD (gastroesophageal reflux disease) H/O lymphopenia Hearing deficit HEARING AIDS Hearing loss Herpes zoster History of undescended testicle History of wrist fracture Hx of deep venous thrombosis 2016 Hx pulmonary embolism 2016 Hypothyroidism Long-term (current) use of anticoagulants, INR goal 2.5-3.5 Malaria Osteoporosis Pectus excavatum Right ventricular enlargement Steroid-induced avascular necrosis of hip Venous insufficiency Vitamin D deficiency Surgical History History of ear surgery X4 History of placement of ear tubes left ear Hx of hemorrhoidectomy S/P total hip arthroplasty Right Family History Mother Osteoporosis Father Coronary heart disease Prostate cancer Unknown Prostate cancer Other Diabetes Heart disease Social History Smoking Status: Never smoker Second Hand Exposure: No; Hx Alcohol Use: No Hx Substance Use: No Preferred Language: Indonesian Communication Ability: Effective Visual Impairment: No Limitations Hearing Ability: Use of Hearing Aid 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 Mood and affect appeared normal. He answered all questions appropriately. HEENT: Pupils are equal and reactive to light and accommodation. Extraocular movements are intact. The sclerae are anicteric. Neuro: Cranial nerves intact Neck: Patient's neck is supple. He has palpable carotid pulses bilaterally without bruits on auscultation. There is no evidence of jugular venous distention. The thyroid is not enlarged. Lungs: Clear to auscultation bilaterally although he did have difficulty taking deep breaths. There was occasional expiratory wheeze. Some bronchial upper respiratory sounds. Cardiac: Heart demonstrates a regular rate and rhythm. Normal S1 and S2. No murmurs on examination. Chest: Pectus excavatum. There was some tenderness to palpation of the left upper pectoral muscle. Pulses: The patient has palpable radial pulses bilaterally that are equal in intensity Extremities: There was no evidence of hypoperfusion. There is no cyanosis or clubbing. There is no edema. Skin: I did not appreciate any rashes on examination today. Results & Data ([facility]) Vital Signs (Past 12 Hours) Vital Signs Temp Pulse Pulse Resp BP BP BP 04/15/20 08:00 105 H 04/15/20 07:34 36.7 C 84 19 112/73 04/15/20 07:26 89 16 04/15/20 03:10 36.6 C 102 H 18 100/71 04/15/20 03:08 101 H 20 04/15/20 00:42 81 22 04/14/20 23:58 77 04/14/20 23:55 36.9 C 81 18 109/82 04/14/20 23:30 92 H 26 H 107/70 Pulse Ox 04/15/20 08:00 04/15/20 07:34 99 04/15/20 07:26 93 04/15/20 03:10 96 04/15/20 03:08 95 04/15/20 00:42 96 04/14/20 23:58 04/14/20 23:55 95 04/14/20 23:30 94 Laboratory Results Abnormal Lab Results 04/14/20 04/14/20 04/14/20 20:21 20:21 20:21 WBC 5.70 RBC 4.40 L Hgb 13.8 L Hct 42.2 MCV 95.9 MCH 31.4 MCHC 32.7 RDW Std Deviation 54.3 H RDW Coeff of Ligia 15.4 H Plt Count 144 MPV 10.1 Immature Gran % (Auto) 3.0 Neut % (Auto) 79.1 Lymph % (Auto) 9.6 [place] % (Auto) 8.1 Eos % (Auto) 0.0 Baso % (Auto) 0.2 Neut # (Auto) 4.51 Lymph # (Auto) 0.55 L [place] # (Auto) 0.46 Eos # (Auto) 0.00 Baso # (Auto) 0.01 Immature Gran # (Auto) 0.17 H PT 11.1 INR 1.1 APTT 23.2 PTT Ratio 0.8 Sodium 142 Potassium 4.0 Chloride 107 Carbon Dioxide 26 Anion Gap 9.0 BUN 17 Creatinine 0.81 Est Cr Clr Drug Dosing Not Reportable Est GFR ( Amer) 123.5 Est GFR (Non-Af Amer) 106.6 BUN/Creatinine Ratio 20.9 H Glucose 165 H Calcium 8.6 Total Bilirubin 0.5 AST 24 ALT 69 Alkaline Phosphatase 63 Troponin I < 0.015 Total Protein 6.6 Albumin 3.4 Globulin 3.2 Albumin/Globulin Ratio 1.0 Procalcitonin 04/15/20 04/15/20 04/15/20 00:04 00:04 06:00 WBC 6.57 RBC 4.41 L Hgb 13.7 L Hct 42.1 MCV 95.5 MCH 31.1 MCHC 32.5 RDW Std Deviation 54.2 H RDW Coeff of Ligia 15.4 H Plt Count 134 MPV 10.2 Immature Gran % (Auto) 2.4 Neut % (Auto) 83.2 Lymph % (Auto) 10.4 [place] % (Auto) 3.8 Eos % (Auto) 0.0 Baso % (Auto) 0.2 Neut # (Auto) 5.47 Lymph # (Auto) 0.68 L [place] # (Auto) 0.25 Eos # (Auto) 0.00 Baso # (Auto) 0.01 Immature Gran # (Auto) 0.16 H PT INR APTT PTT Ratio Sodium Potassium Chloride Carbon Dioxide Anion Gap BUN Creatinine Est Cr Clr Drug Dosing Est GFR ( Amer) Est GFR (Non-Af Amer) BUN/Creatinine Ratio Glucose Calcium Total Bilirubin AST ALT Alkaline Phosphatase Troponin I < 0.015 Total Protein Albumin Globulin Albumin/Globulin Ratio Procalcitonin < 0.05 04/15/20 04/15/20 06:00 06:00 WBC RBC Hgb Hct MCV MCH MCHC RDW Std Deviation RDW Coeff of Ligia Plt Count MPV Immature Gran % (Auto) Neut % (Auto) Lymph % (Auto) [place] % (Auto) Eos % (Auto) Baso % (Auto) Neut # (Auto) Lymph # (Auto) [place] # (Auto) Eos # (Auto) Baso # (Auto) Immature Gran # (Auto) PT INR APTT PTT Ratio Sodium 141 Potassium 4.3 Chloride 107 Carbon Dioxide 28 Anion Gap 6.0 BUN 17 Creatinine 0.79 Est Cr Clr Drug Dosing 124.4 Est GFR ( Amer) 124.8 Est GFR (Non-Af Amer) 107.7 BUN/Creatinine Ratio 21.7 H Glucose 114 H Calcium 8.8 Total Bilirubin 0.7 AST 21 ALT 71 Alkaline Phosphatase 53 Troponin I < 0.015 Total Protein 6.5 Albumin 3.4 Globulin 3.1 Albumin/Globulin Ratio 1.1 Procalcitonin Diagnostic Findings He has had the following studies/procedures: 1. Echo 01/26/2018: Normal LV size with low-normal systolic function. EF 50-55%. No regional wall motion abnormalities. No LVH. Type 1 diastolic dysfunction. Mild RV dilation with mildly reduced systolic function. No significant valvular abnormalities. 2. CTA chest 07/26/2018: No acute aortic pathology or PE. Pectus excavatum with thoracic dextroscoliosis. Mild bilateral bronchiectasis. 3. Dobutamine stress echo 09/05/2018: No ischemic changes at 85% MPHR. Cannot exclude basal and distal lateral ischemic changes due to suboptimal image quality at peak stress. 4. Dobutamine stress echo 09/19/2019: Negative for ischemia. Resting echo with normal LV size, wall motion and systolic function. No significant valvular abnormality. 5. Chest CTA performed 04/11/2020: Cardiomegaly and findings suggestive of pulmonary artery hypertension, no PE. Mild bronchiectasis. PG Care Time/CCT Total # of Minutes Spent Total Time Spent with Patient: Total time spent is greater than 50% in coordination of care (as documented) at patient's floor/unit and/or counseling patient: Coding Level of Care Code 59675 Inpt Consult Level 4 Diagnoses Chest pain R07.9 Chest pain type: unspecified Abnormal ECG R94.31 SOB (shortness of breath) R06.02 (1) Chest pain Chest pain type: unspecified Qualified Code(s): R07.9 - Chest pain, unspecified
--- NOTE | 2020-04-15 13:56 | Pre Anesthesia Assessment ---
Date of Service April 15, 2020 Pre Sedation Assessment Vital Signs Temp Pulse Pulse Resp BP BP BP 04/15/20 11:13 37.0 C 87 20 110/73 04/15/20 08:00 105 H 04/15/20 07:34 36.7 C 84 19 112/73 04/15/20 07:26 89 16 04/15/20 03:10 36.6 C 102 H 18 100/71 04/15/20 03:08 101 H 20 04/15/20 00:42 81 22 04/14/20 23:58 77 04/14/20 23:55 36.9 C 81 18 109/82 04/14/20 23:30 92 H 26 H 107/70 04/14/20 23:00 90 40 H 108/72 04/14/20 22:30 109/79 04/14/20 22:00 91 H 23 109/77 04/14/20 21:30 92 H 21 120/82 04/14/20 21:00 93 H 19 119/72 04/14/20 20:30 92 H 22 116/71 04/14/20 20:28 04/14/20 20:23 90 18 04/14/20 19:46 37.1 C 92 H 18 124/72 Pulse Ox 04/15/20 11:13 94 04/15/20 08:00 04/15/20 07:34 99 04/15/20 07:26 93 04/15/20 03:10 96 04/15/20 03:08 95 04/15/20 00:42 96 04/14/20 23:58 04/14/20 23:55 95 04/14/20 23:30 94 04/14/20 23:00 95 04/14/20 22:30 95 04/14/20 22:00 95 04/14/20 21:30 95 04/14/20 21:00 94 04/14/20 20:30 94 04/14/20 20:28 96 04/14/20 20:23 96 04/14/20 19:46 95 Cardiovascular + regular rate Respiratory + respiratory effort normal Pre-Sedation Airway Assessment Smoking Status: Never smoker Hx Sleep Apnea: Yes (slight per ) Hx Difficult Intubation: No Short, Thick Neck: No Thyromental Distance: > or= 3.5 Finger Breadths Oral Cavity: + WNL Mallampati Class: III ASA: ASA3 Procedure Planning Contraindications for Sedation: none Current Medications Reviewed: Yes Notes The planned sedation has been discussed with the patient. Informed Consent was obtained. I have identified the patient, determined the appropriateness of sedation and have assessed the patient immediately prior to the procedure. All medicine(s) and interventions are by my order.
[2020-04-15 14:14] LABS: Partial Thromboplastin Ratio 1.6; Partial Thromboplastin Time 44.3 Seconds (21.0-31.0)
[2020-04-15] MEDS ORDERED: MIDAZOLAM HCL 1 MG/ML 2ML VIAL ONE (14:41)
[2020-04-15] MEDS ORDERED: fentaNYL citrate 100 MCG/2 ML VIAL ONE (14:41)
--- NOTE | 2020-04-15 15:08 | Cardiac Catheterization ---
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 Cardiac Status Clinical evaluation leading to the procedure CAD Presenation: Sx unlikely to be ischemic Diagnostic Physicians Name: Barrington Sher MD Closure Device Recommendations: None Cardiac Cath Procedure Full Procedure Date April 15, 2020 Pre-Procedure Diagnosis Pre-Procedure Diagnosis: Cardiothoracic Symptom AUC Score AUC Score: 6 Post-Procedure Diagnosis Post-Procedure Diagnosis: Normal Intracardiac Pressures Procedure(s) Performed Procedure(s) Performed: Right Heart Cath Assistant Professor Of English Barrington Sher MD Morgue Keeper(s) none Estimated Blood Loss Estimated Blood Loss: None Medication(s) Medication(s): Fentanyl, Lidocaine 1% and Versed Summary of Findings Procedure performed: Right heart catheterization Staff jockey room custodian: Barrington Sher MD Indication: The patient is a 45-year-old gentleman with a longstanding history of Mnire disease and chest deformity who has symptoms of dyspnea and is suspected of having pulmonary hypertension. Procedure in detail: The patient was informed of risk benefits and alternatives to the intended procedure. He understood and wished proceed. He was taken to the cardiac catheterization suite in a fasting state. Conscious sedation was administered per protocol and the patient was monitored electrocardiographically throughout today's procedure. The right antecubital area was prepped and draped in usual sterile fashion. The right antecubital vein was subsequently accessed and a 6 Romanian sheath was placed over guidewire at this site. The sheath was used to felt a passage of a balloontipped PA catheter for pressure measurements and hemodynamics. He had inclusion of the procedure the catheter and sheath were removed. Hemostasis was achieved to the access site using manual pressure. The patient tolerated surgery well. There were no immediate complications. Equipment used: 6 Romanian balloontipped PA catheter Findings: Eliza cardiac output: 4.7 lpm Thermodilution: 6.6 lpm Conclusions: Normal intrapulmonary and intracardiac pressures. No pulmonary hypertension Normal pulmonary capillary wedge pressure Normal cardiac output Hemodynamics Rest Ao:: n/a Final Ao: n/a LV: n/a RA: 3 mmHg RV: 23 over 0 mmHg PA: 15 over 0 mmHg PW: 5 mmHg Recommendations Recommendations: None Radiation Exposure (mGy) q Contrast (mls) 0 I attest to the content of the Intraoperative Record and any orders documented therein. Any exceptions are noted below. ClothiaG Card Cath Procedure Codes Cardiac Catheterization Procedure 1: Cardiovascular Cath Procedures: 47676 Right Heart Cath Moderate Sedation Procedure 1: Sedation/Anesthesia: 28711 Mod Sedation by the same physician;Init15 Min Child Age 5 & Up PG Care Time/CCT Total # of Minutes Spent Total Time Spent with Patient: Total time spent is greater than 50% in coordination of care (as documented) at patient's floor/unit and/or counseling patient:
[2020-04-15 15:09] LABS: iSTAT Arterial Blood Gas HCO3 27 meg/L (19-24); iSTAT Arterial Blood Gas pCO2 40 mmHg (35-46); iSTAT Arterial Blood Gas pH 7.43 (7.35-7.45); iSTAT Arterial Blood Gas pO2 34 mmHg (80-95); iSTAT Carbon Dioxide 28 mmol/L (24-31); iSTAT Hematocrit 43 % (42-52); iSTAT Hemoglobin 14.6 g/dl (14.0-18.0); iSTAT Potassium 3.9 mmol/L (3.3-5.0); iSTAT Sodium 142 mmol/L (135-144)
--- NOTE | 2020-04-15 15:09 | Post Anesthesia Assessment ---
Date of Service April 15, 2020 Post Sedation Assessment Vital Signs Temp Pulse Pulse Resp BP BP BP 04/15/20 14:26 95 H 20 101/71 04/15/20 11:13 37.0 C 87 20 110/73 04/15/20 08:00 105 H 04/15/20 07:34 36.7 C 84 19 112/73 04/15/20 07:26 89 16 04/15/20 03:10 36.6 C 102 H 18 100/71 04/15/20 03:08 101 H 20 04/15/20 00:42 81 22 04/14/20 23:58 77 04/14/20 23:55 36.9 C 81 18 109/82 04/14/20 23:30 92 H 26 H 107/70 04/14/20 23:00 90 40 H 108/72 04/14/20 22:30 109/79 04/14/20 22:00 91 H 23 109/77 04/14/20 21:30 92 H 21 120/82 04/14/20 21:00 93 H 19 119/72 04/14/20 20:30 92 H 22 116/71 04/14/20 20:28 04/14/20 20:23 90 18 04/14/20 19:46 37.1 C 92 H 18 124/72 Pulse Ox 04/15/20 14:26 94 04/15/20 11:13 94 04/15/20 08:00 04/15/20 07:34 99 04/15/20 07:26 93 04/15/20 03:10 96 04/15/20 03:08 95 04/15/20 00:42 96 04/14/20 23:58 04/14/20 23:55 95 04/14/20 23:30 94 04/14/20 23:00 95 04/14/20 22:30 95 04/14/20 22:00 95 04/14/20 21:30 95 04/14/20 21:00 94 04/14/20 20:30 94 04/14/20 20:28 96 04/14/20 20:23 96 04/14/20 19:46 95 Recovery Score Activity: Moves 4 extremities Respiration: Deep Breath/Cough Circulation: +/-20% PreAnes Value Consciousness: Fully Awake Oxygen Saturation: > 92% On Room Air Discharge Sedation Level of Care: Fast Track Phase II Post Sedation Plan On clinical assessment, the patient appears to have tolerated the sedation without complications. Patient is recovering as anticipated. Patient will continue to be monitored by nursing and may be discharged when sedation discharge criteria are met per below protocol. Upon Completions of procedure up to 15 minutes continue every 5 minute vital signs and the P.A.R. score; then discharge to a Phase I or Fast Track to Phase II per the following guidelines: * Discharge Patient to appropriate Phase II area if PAR is 8 or greater or return to pre- procedure baseline. The post - procedure orders will be as directed. * If PAR score is less than 8 or not return to pre-procedure baseline then patient will follow Phase I monitoring till PAR is reached for Phase II. The Phase I may be done in procedure room or may call to secure a Phase I area. * If naloxone or flumazenil are used for reversal, hold in Phase I for continued monitoring from when last reversal dose was given for a minimum of 60 minutes or longer pending the nurse and/or physician discretion of patient condition before discharge to Phase II. Please call the Sedation Physician to re-evaluate and complete post-note for discharge to Phase II area. Do NOT discharge from procedure sedation or Phase 1 until post- sedation evaluation note is complete by procedure /sedation MD Sedation Discharge Instructions to be given to the patient at discharge to home.
--- NOTE | 2020-04-15 18:06 | Electrocardiogram Report ---
Test Reason : Blood Pressure : / mmHG Vent. Rate : 091 BPM Atrial Rate : 091 BPM P-R Int : 158 ms QRS Dur : 090 ms QT Int : 346 ms P-R-T Axes : 048 -19 026 degrees QTc Int : 425 ms Normal sinus rhythm Incomplete right bundle branch block Abnormal ECG When compared with ECG of 11-APR-2020 13:27, T wave inversion now evident in Lateral leads Confirmed by Barrington Sher ([id number]) on 04/15/2020 6:06:36 PM Referred By: REFERRED SELF Confirmed By:Meliton Sher
--- NOTE | 2020-04-15 18:06 | Electrocardiogram Report ---
Test Reason : Blood Pressure : / mmHG Vent. Rate : 098 BPM Atrial Rate : 098 BPM P-R Int : 158 ms QRS Dur : 092 ms QT Int : 356 ms P-R-T Axes : 043 -21 030 degrees QTc Int : 454 ms Normal sinus rhythm Incomplete right bundle branch block Abnormal ECG When compared with ECG of 14-APR-2020 19:58, (unconfirmed) No significant change was found Confirmed by Barrington Sher ([id number]) on 04/15/2020 6:06:48 PM Referred By: REFERRED SELF Confirmed By:Meliton Sher
--- NOTE | 2020-04-15 18:11 | Electrocardiogram Report ---
Test Reason : Blood Pressure : / mmHG Vent. Rate : 097 BPM Atrial Rate : 097 BPM P-R Int : 158 ms QRS Dur : 084 ms QT Int : 342 ms P-R-T Axes : 051 010 014 degrees QTc Int : 434 ms Normal sinus rhythm Incomplete right bundle branch block T wave abnormality, consider lateral ischemia Abnormal ECG When compared with ECG of 14-APR-2020 21:04, (unconfirmed) T wave inversion less evident in Anterior leads Confirmed by Barrington Sher ([id number]) on 04/15/2020 6:11:10 PM Referred By: REFERRED SELF Confirmed By:Meliton Sher
[2020-04-15] MEDS: LEVALBUTEROL HCL 1.25 MG/3 ML NEB NEB SCH (19:34)
[2020-04-15] MEDS ORDERED: dilTIAZem HCl 60 MG TAB PO SCH (21:00)
[2020-04-15] MEDS ORDERED: MONTELUKAST SODIUM 10 MG TABLET PO SCH (21:00)
[2020-04-16] MEDS: AZITHROMYCIN 500 MG in DEXTROSE 5% 250 ML IV SCH (00:34)
[2020-04-16] MEDS: LEVALBUTEROL HCL 1.25 MG/3 ML NEB NEB SCH ×4 (00:47→15:13)
--- NOTE | 2020-04-16 02:49 | Billing Data ---
Date of Service April 16, 2020 Coding Level of Care Code 18723 Initial Inpt Care Lvl 3
[2020-04-16] MEDS: NITROGLYCERIN 2% OINTMENT 30GM TUBE EXT SCH ×3 (03:47→14:57)
[2020-04-16] MEDS: LEVOTHYROXINE SODIUM 25 MCG TABLET PO SCH (05:25)
[2020-04-16] MEDS: ACETYLCYSTEINE 10% INHAL SOLN 4 ML **DISPENSED BY RESP. INH SCH (07:04)
[2020-04-16 07:44] LABS: Basophils # (auto) 0.01 K/uL (0-0.2); Basophils % (auto) 0.2 %; Eosinophils # (auto) 0.01 K/uL (0-0.5); Eosinophils % (auto) 0.2 %; Hematocrit (blood only) 44.2 % (42-52); Hemoglobin 14.5 g/dL (14.0-18.0); Immature Granulocytes # (auto) 0.22 K/uL (0.00-0.02); Immature Granulocytes % (auto) 3.9 %; Lymphocytes # (auto) 1.02 K/uL (1.2-3.4); Mean Corpuscular Hemoglobin 31.5 pg (25-34); Mean Corpuscular Hgb Conc 32.8 g/dL (32-36); Mean Corpuscular Volume 95.9 fL (80-100); Mean Platelet Volume 10.2 fL (7.4-10.4); Monocytes % (auto) 5.3 %; Neutrophils # (auto) 4.11 K/uL (1.4-6.5); Neutrophils % (auto) 72.4 %; Platelet Count 113 K/uL (130-400); RDW Coefficient of Variation 15.4 % (11.5-14.5); RDW Standard Deviation 53.6 fL (36.4-46.3); Red Blood Count 4.61 M/uL (4.7-6.1); White Blood Count 5.67 K/uL (4.8-10.8)
[2020-04-16 08:01] LABS: Partial Thromboplastin Ratio 0.8; Partial Thromboplastin Time 21.3 Seconds (21.0-31.0)
[2020-04-16 08:12] LABS: Albumin Level 3.5 gm/dl (3.4-5.0); BUN Creatinine Ratio 25.9 (10-20); Calcium 9.2 mg/dl (8.5-10.1); Creatinine Clr Calc Pharmacy 105.2 ml/min; Est GFR (African American) 115.2; Est GFR (Non-African American) 99.4; Potassium 3.9 mmol/L (3.5-5.1)
[2020-04-16 08:15] LABS: Bilirubin,Total 0.9 mg/dl (0.2-1); Globulin 3.5 gm/dl (2.5-4.0)
--- NOTE | 2020-04-16 09:05 | Pulmonary Consultation ---
Date of Consultation April 16, 2020 Assessment & Plan (1) SOB (shortness of breath): This is a 45-year-old male with longstanding history of multiple pulmonary issues and chronic shortness of breath. He was admitted primarily for chest pain and is under the care of the cardiology group with Dr. Sher. There does not appear to be any acute pulmonary issue. Patient has no demonstrated hypoxia, acute changes on CTA of the chest 04/11/2020 or chest x-ray 04/14/2020. He has no significant sputum production or evidence of mucous plugging on imaging or examination. He has no acute bronchospasm or other pulmonary changes. Patient has chronic shortness of breath with no evidence of hypoxia. He has not been seen in his specified lung center and has not undergone pulmonary rehab Patient does have BiPAP with supplemental O2 at home Patient also has supplemental O2 at 2 L/min nasal cannula as needed at home. CT scan on 04/11/2020 shows no evidence of acute process. There is evidence of scarring and traction bronchiectasis Patient is on Anora Ellipta, Mucomyst nebs, fluticasone, duo nebs, Singulair, and Xolair at home We will continue current pulmonary meds and discharge on usual home meds EKG, echocardiogram, right-sided heart catheterization shows no acute evidence of ischemia or pulmonary hypertension Continue supportive care Patient may benefit from pulmonary rehab. I did confirm with the pulmonary rehab that they are seeing patients and practicing social distancing per CDC guidelines Follow-up outpatient with Darrno Roger PA-C in the [facility] pulmonary group (2) Chest pain: Troponins negative Cardiology consulted -appreciate Dr. Sher's input Continue management per cardiology No acute findings on EKG Right side a cardiac catheterization yesterday was reportedly negative for ischemia Chest pain type: unspecified Qualified Code(s): R07.9 - Chest pain, unspecified (3) Vocal cord dysfunction: Left vocal cord paresis We will continue aspiration precautions Patient working outpatient to get a voice amplifier Continue speech-language pathology outpatient (4) Pulmonary hypertension: Reported in the past per vascular architecture on CT scans Echocardiograms with no evidence of pulmonary hypertension Right heart catheterization yesterday with no evidence of pulmonary hypertension Patient on supplemental oxygen at home Continue outpatient follow-up (5) Hypogammaglobulinemia: Dr. Morrissey aware and following in the outpatient pulmonary clinic No role for replacement at this time (6) COPD (chronic obstructive pulmonary disease) case management patient: Identified on pulmonary function testing in the past No evidence of acute exacerbation at this time We will do short course of prednisone and stop Procalcitonin is negative Continue outpatient management Supervising Physician Co-Signing Physician Notes I saw and evaluated the patient with Kyler thapa, and agree with findings and plan as documented in the note. Patient seen and examined at bedside. Patient was resting comfortably without any distress at the time of examination. Patient is known to me from his previous admission back in September 2019 where he complained with similar complaint of dyspnea which was relieved by taking lorazepam. At that time I had even done sniff test to see if there is any diaphragmatic issue causing his shortness of breath. His sniff test was negative dated 10/08/2019 Patient even had MRI of the brain to see if there is any central component of his shortness of breath/hyper apnea. MRI of the brain was negative dated 09/19/2019. On the ABGs patient is never hypercapnic. Patient has minimal bilateral bronchiectasis of the lower lobes, no clear infiltrate appreciated, patient does have pectus excavatum as well as scoliosis no other infiltrate appreciated. No mediastinal lymphadenopathy PFTs done 03/31/2020 does show severe obstructive dysfunction with air trapping and moderate decrease in DLCO which corrects for [place]. Patient underlying history of asthma may be the reason for his air trapping. His musculoskeletal deformity especially pectus excavatum as well as scoliosis may be playing a role in his shortness of breath. Patient follows up with pulmonary ALANNAH Leary and Dr. Morrissey as outpatient. Apparently they had significant work-up done which was all negative. Patient had 2D echo done this admission which shows normal right ventricle function and pressure. There is evidence of pulmonary arterial hypertension on the CT scan. Patient has no history of PE in the past. But his symptoms does not go with pulmonary hypertension induced dyspnea. Overall patient's case is very complicated. I do think there is a component of anxiety also playing a role in his case unfortunately. No further recommendations from pulmonary perspective. He can follow-up with Dr. Morrissey/Santiago Roger as an outpatient. History of Present Illness Attending Physician: Garrison Mcrae DO History of Present Illness Attending: Dr. 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 This is a patient well-known to the pulmonary clinic who follows with Dr. Morrissey and with Santiago Roger PA-C. His last known appointment with the pulmonary group was 03/31/2020. At that time he was prescribed prednisone and Augmentin. This was never started as it was sent to [facility] rather than [facility] and patient never received it at home. The patient is on chronic O2 at home at 2 L/min. This is to be used as needed and for nocturnal hypoxia. The patient states that he does have a pulse oximeter and when short of breath or with dyspnea with exertion he has never dropped below 90% for his SaO2. He has been treated in the past with clonazepam and prednisone and has had repeated courses over the last 4 to 5 months. He was suspected to have diaphragmatic dysfunction and had a sniff test on 10/08/2019 which showed no evidence of diaphragmatic paralysis. Patient's most recent pulmonary function testing was 03/31/2020 and is reflected below in the diagnostics. He has struggled for years with COPD, bronchiectasis, and severe persistent asthma. The patient denies any significant bronchospasm or sputum production. The patient does have a pulmonary vest at home which helps for very short periods of time but his use f requently. Patient reports since his last visit with Dr. Morrissey 03/31/2020 he has had progressively worsening shortness of breath and anxiety regarding shortness of breath. He is frustrated as he feels as no one listens to him. Mr. Vazquez does acknowledge that this is probably a combination of everything. Patient was admitted for chest pain and shortness of breath. EKG showed some abnormalities but no ST changes were specific for ischemia. He was seen by Dr. Sher and underwent a right heart cath yesterday. At this point there is no evidence of ischemia or obstruction. Patient also has followed with gastroenterology for GERD and esophageal spasm. He has no evidence of stridor on examination. He does however have chronic vocal cord dysfunction with left- sided paresis. He follows ENT for this as an outpatient. Patient denies any fever, chills, sweats, rigors. He has not been out of his house other than to go to [employer]. There he wears a mask and practices social distancing. He has no sick contacts. He has not had any contact with anyone that he is aware of that has COVID. His is well with no recent illness. Allergies Allergy/AdvReac Type Severity Reaction Status Date / Time gluten Allergy Mild STOMACH Verified 03/31/20 11:28 ISSUES Cipro AdvReac Intermediate issue with Verified 08/19/17 14:34 legs ciprofloxacin AdvReac Intermediate issue with Verified 03/31/20 11:28 legs oxycodone AdvReac Mild GI upset Verified 03/31/20 11:28 Home Medications Home Medications Medication Instructions Recorded Confirmed Type azelastine 1 spray INTRANASAL QAM 09/05/18 04/14/20 History calcium carbonate-vitamin D3 1 tab PO BID 09/05/18 04/14/20 History [Calcium 600 + D(3)] multivitamin 1 tab PO QAM 09/05/18 04/14/20 History Prolia 60 mg SUBCUT Q6M 10/10/18 04/14/20 History diclofenac sodium 4 g TOPICAL BID PRN 01/13/19 04/14/20 History ascorbic acid (vitamin C) 500 mg 1,000 mg PO QAM tab 03/27/19 04/14/20 History tablet cholecalciferol (vitamin D3) 50 2,000 units PO QAM cap 03/27/19 04/14/20 History mcg (2,000 unit) capsule fexofenadine 180 mg tablet 180 mg PO QAM 03/27/19 04/14/20 History ipratropium bromide 0.02 % 3 ml INHALATION Q6H PRN #150 ml 04/13/19 04/14/20 Hi story solution for inhalation omega-3 fatty acids 1,000 mg 1,000 mg PO QAM 04/13/19 04/14/20 History capsule epinephrine [EpiPen 2-Dustin] 0.3 mg IM Q15M PRN 09/17/19 04/14/20 History polysaccharide iron complex 150 mg PO QAM 09/17/19 04/14/20 History [Ferrex 150] docusate sodium 100 mg capsule 100 mg PO DAILY cap 09/28/19 04/14/20 History levalbuterol HCl 1.25 mg/3 mL 1.25 mg INH Q4H #540 vial 10/02/19 04/14/20 Rx solution for nebulization levothyroxine 25 mcg tablet 25 mcg PO QAM #90 tab 10/24/19 04/14/20 Rx montelukast 10 mg tablet 10 mg PO HS #90 tab 11/09/19 04/14/20 Rx omeprazole 20 mg capsule,delayed 40 mg PO QAM #90 cap 11/09/19 04/14/20 Rx release rivaroxaban 20 mg tablet 20 mg PO QAM #90 tab 01/16/20 04/14/20 Rx Xolair 150 mg SQ UD 01/17/20 04/14/20 History clonazepam 0.5 mg tablet 0.5 mg PO TID PRN 90 Days #180 tab 02/28/20 04/14/20 Rx fluticasone fur. 100 mcg-umeclid 1 puffs INH QAM #1 inhaler 02/28/20 04/14/20 Rx 62.5 mcg-vilant 25 mcg inhalat.powder levalbuterol tartrate 45 2 puffs INHALATION Q4H PRN #45 gm 02/28/20 04/14/20 Rx mcg/actuation aerosol inhaler diltiazem HCl 60 mg tablet 60 mg PO HS #90 tab 03/31/20 04/14/20 Rx prednisone 10 mg tablet See Rx Instructions PO DAILY #36 04/07/20 04/14/20 Rx tab acetylcysteine 2 ml INH QAM 04/14/20 04/14/20 History azithromycin 250 mg PO DAILY 2 Days #2 tab 04/16/20 Rx prednisone 40 mg PO QAM #32 tab 04/16/20 Rx Patient History Medical History Atrial tachycardia Bronchiectasis FOLLOWS WITH PULMONARY Chronic deep vein thrombosis of popliteal vein Chronic reflux esophagitis Chronic rhinitis Degenerative joint disease (DJD) of hip Dextroscoliosis Dysfunction of both eustachian tubes GERD (gastroesophageal reflux disease) H/O lymphopenia Hearing deficit HEARING AIDS Hearing loss Herpes zoster History of undescended testicle History of wrist fracture Hx of deep venous thrombosis 2016 Hx pulmonary embolism 2016 Hypothyroidism Long-term (current) use of anticoagulants, INR goal 2.5-3.5 Malaria Osteoporosis Pectus excavatum Right ventricular enlargement Steroid-induced avascular necrosis of hip Venous insufficiency Vitamin D deficiency Surgical History History of ear surgery X4 History of placement of ear tubes left ear Hx of hemorrhoidectomy S/P total hip arthroplasty Right Family History Mother Osteoporosis Father Coronary heart disease Prostate cancer Unknown Prostate cancer Other Diabetes Heart disease Social History Smoking Status: Never smoker Second Hand Exposure: No; Hx Alcohol Use: No Hx Substance Use: No Preferred Language: German Communication Ability: Effective Visual Impairment: No Limitations Hearing Ability: Use of Hearing Aid Residential Roofer Helper Required: No Beliefs That Will Affect Care: None marital status: Current Living Situation: Spouse current occupational status: employed Feels Safe at Home: Yes Review of Systems Review of Systems: All systems reviewed & are unremarkable except as noted in HPI & below Physical Exam Physical Exam: GENERAL : No acute distress. Soft spoken. EYES: No icterus, gaze conjugate. Pupils equal round react to light. Eyeglasses in place. NOSE: No evidence of epistaxis. Patient is oxygenating well on room air MOUTH: No lesions or candidiasis. NECK: Supple. No appreciation of stridor or carotid bruits. LUNGS: CTA B/L, no wheezes, rales or rhonchi. Decreased breath sounds. HEART: Regular, rate controlled CHEST: Pectus excavatum ABDOMEN: Soft, NT, ND, BS Present EXTREMITIES: No LE edema, pedal pulses intact NEURO: A&OX3. Cranial nerves II through XII grossly intact without focal deficit Results & Data Results & Data ([facility]) Vital Signs (Past 12 Hours) Vital Signs Temp Pulse Pulse Resp BP Pulse Ox 04/16/20 07:33 36.7 C 75 24 106/67 96 04/16/20 07:05 64 18 98 04/16/20 04:00 36.7 C 64 18 107/70 92 04/16/20 02:51 61 16 97 04/15/20 23:26 74 04/15/20 23:17 36.6 C 90 20 91/52 L 96 04/15/20 21:35 69 18 96 Laboratory Results Laboratory Tests 04/15/20 00:04 Procalcitonin < 0.05 04/16/20 07:31 04/16/20 07:31 04/14/20 04/15/20 04/15/20 20:21 00:04 06:00 Troponin I < 0.015 < 0.015 < 0.[address] angio chest PE protocol CT DOSE: 370.82 mGy.cm HISTORY: 45 years-old Male with Dyspnea. Acute shortness of breath TECHNIQUE: Multiple CTA images of the chest were obtained after the intravenous administration of 120 ml Optiray 320. Coronal and sagittal MIPS were obtained from the axial data set and were submitted for review. All measurements were obtained according to NASCET criteria. A dose lowering technique was utilized adhering to the principles of ALARA. COMPARISON: CTA chest 09/18/2019 FINDINGS: CTA: Cardiomegaly without pericardial effusion. Minimal coronary artery calcifications. No thoracic aortic aneurysm or dissection. The left heart st ructures and thoracic aorta are not well opacified which limits evaluation. The imaged great vessels appear unremarkable. Tortuosity of the ascending thoracic aorta. Main pulmonary artery redemonstrated measuring up to 4.1 cm transversely. Reflux of contrast into the IVC. No filling defects identified within the pulmonary arterial tree to suggest thromboembolic disease. CT CHEST: No dominant thyroid nodule. No adenopathy. No pneumothorax or pleural effusion. Mild linear subsegmental scarring/atelectasis of the lung bases with areas of mild traction bronchiectasis. No airspace consolidation typical for pneumonia. No overt pulmonary edema. Minimal pleural thickening/scarring of the lung apic es. The central airways appear patent. There is mild wall thickening of the mid and distal esophagus. Pectus excavatum. No acute fracture or suspicious bone lesion. Healed remote bilateral rib fractu res. Multiple remote appearing thoracic compression deformities. Convex right curvature of the thoracolumbar junction. IMPRESSION: 1. Cardiomegaly with findings suggestive of pulmonary artery hypertension. 2. No evidence of pulmonary thromboembolic disease. 3. Mild linear subsegmental bibasilar atelectasis/scarring with mild areas of traction bronchiectasis. 4. No airspace consolidation, pleural effusion or adenopathy. ACT 112: Negative or not required by law. The above report was generated using voice recognition software. It may contain grammatical, syntax or spelling errors. Electronically signed by: Loco Moody M.D. 04/11/2020 2:12 PM Pulmonary function testing 03/31/2020: PFTs 03/31/2020 show an FEV1/FVC ratio 43% with an FEV1 of 1.77 L or 41% of predicted. The forced vital capacity is 78% of predicted. The bronchodilator was not administered. Air trapping was noted and diffusion capacity was moderately reduced. There has been definitely a change since 07/31/2019 when he had an FEV1/FVC ratio of 59% and FEV1 of 2.4 L at least 600 cc greater than he does now. DLCO was depressed then as well PG Care Time/CCT Total # of Minutes Spent Total Time Spent with Patient: Total time spent is greater than 50% in coordination of care (as documented) at patient's floor/unit and/or counseling patient: 60 minutes Coding Level of Care Code 67728 Inpt Consult Level 5 Diagnoses SOB (shortness of breath) R06.02 Chest pain R07.9 Chest pain type: unspecified Vocal cord dysfunction J38.3 Pulmonary hypertension I27.20 Hypogammaglobulinemia D80.1 COPD (chronic obstructive pulmonary disease) case management patient J44.9
[2020-04-16] MEDS: predniSONE 20 MG TAB PO SCH (09:17)
[2020-04-16] MEDS: FEXOFENADINE HCL 180 MG TAB PO SCH (09:17)
[2020-04-16] MEDS: DOCUSATE SODIUM 100 MG CAP PO SCH (09:17)
[2020-04-16] MEDS: MULTIVITAMIN TAB PO SCH (09:17)
[2020-04-16] MEDS: IRON POLYSACCHARIDE COMPLEX 150 MG CAPSULE PO SCH (09:17)
[2020-04-16] MEDS: CALCIUM 600MG + VIT D 400 IU TAB PO SCH (09:18)
[2020-04-16] MEDS: PANTOprazole 40 MG TAB PO SCH (09:18)
[2020-04-16] MEDS: ASCORBIC ACID 500 MG TAB PO SCH (09:18)
[2020-04-16] MEDS: OMEGA-3 (PURIFIED FISH OIL) 1 GM CAP PO SCH (09:19)
[2020-04-16] MEDS: CHOLECALCIFEROL 1,000 UNITS 25 MCG TAB PO SCH (09:19)
[2020-04-16] MEDS: FLUTICASONE FUROATE 100MCG 14 PUFFS/INHALER INH SCH (09:20)
[2020-04-16] MEDS: UMECLIDINIUM/VILANTEROL 62.5/25MCG 7 PUFFS/INHALER INH SCH (09:21)
--- NOTE | 2020-04-16 11:07 | XCELERA ---
[id number]
--- NOTE | 2020-04-16 11:15 | Discharge Summary ---
Date of Service April 16, 2020 Admission HPI Per Admitting Provider Nikhil Vazquez is a 45 year old man with a past medical history significant for asthma, chronic bronchiectasis, Pectus Excavatum, COPD, Pulmonary embolism, osteoporosis, who presents with several weeks of progressive dyspnea and chest pain particularly with deep inspiration which developed over the last several days. He frequently has shortness of breath given his underlying pulmonary issues, but he was seen by Dr. Morrissey several weeks ago and given a course of steroids which did not seem to help his dyspnea at all. He has also been having some hip pain, he does have a history of osteoporosis osteoarthritis and a hip replacement on that side. Difficult for him to bear weight on that hip secondary to pain, no instability. Also notes some markedly increased abdominal bloating when he has to breathe shallowly. Patient presented with similar symptoms three days ago. He was placed on prednisone and augmentin at that time, he had imaging performed at that time with CTA significant for NO embolism or consolidation but cardiomegaly and signs of pulmonary hypertension. He was prescribed augmentin for his symptoms but was unable to pick that up. He has no history of ischemic heart disease but has had this pain occasionally over the past year though it has gotten progressively worse in past several days. Was actually admitted in September for very similar symptoms. He denies other issues at present On presentation to ED patient was found to be oxygenating well on room air, rest of his vitals wnl apart from some more rapid shallow breathing and having difficulty taking deep breaths secondary to pain. He was given nitropaste which relieved his chest pain. He denies an exertional component to his pain. no diaphoresis, no lightheadedness or syncope, no nausea or vomiting. Labwork significant for - troponin. ECG showing new lateral T wave inversions and ST depressions. Patient denies chest pain at present time until he takes deep breaths for my exam. He's adamant that all he needs for pain control is the nitro paste. Lives with , has hearing loss and difficulty ambulating of late. Non smoker non drinker no drug use. Would like to be a full code. Admission Exam Per Admitting Provider Constitutional: + thin and + cachectic; + not well developed and no acute distress Eyes: PERRL, conjunctivae normal, anicteric sclerae ENMT: external ear and nose normal, oropharynx normal Respiratory: + uses accessory muscles and + cough; + abnormal respiratory effort Auscultation: lungs clear to auscultation bilaterally Cardiovascular: RRR, no murmur, no edema Heart Sounds: no click, no gallop, no murmur and no cardiac rub Vessels: normal peripheral pulses Extremities: no calf tenderness and no pedal edema Gastrointestinal (Abdomen): Inspection/Auscultation: + abdomen distended and normal bowel sounds Percussion/Palpation: abdomen soft; abdomen nontender Neurologic: PERRL, EOMI, accommodation nl, no face palsy, no dysarthria Principal Diagnosis Chest pain rule out requiring diagnostic cardiac catheterization complicated by longstanding history of COPD, unspecified genetic disorder, history of pulmonary embolism, chronic bronchiectasis, history of asthma and allergies Discharge Exam General: No acute distress HEENT: Normocephalic atraumatic, Neck: Normal to visual inspection, trachea midline Cardiac: Palpated pulse, symmetrical bilaterally, regular rate, regular rhythm Respiratory: Symmetrical chest expansion bilaterally with no increased work of breathing, nonlabored breathing GI: Soft, nontender, nondistended MSK: Moves all extremities Skin: Cool dry and intact Neuro: Alert and oriented x4 Psych: Perseverating Discharge Data Allergies Allergy/AdvReac Type Severity Reaction Status Date / Time gluten Allergy Mild STOMACH Verified 03/31/20 11:28 ISSUES Cipro AdvReac Intermediate issue with Verified 08/19/17 14:34 legs ciprofloxacin AdvReac Intermediate issue with Verified 03/31/20 11:28 legs oxycodone AdvReac Mild GI upset Verified 03/31/20 11:28 Consultations 04/14/20 21:03 ED Decision to Admit Stat 04/14/20 23:53 Consult Cardiology Routine 04/15/20 07:33 Consult Case Management - Discharge Planning Routine 04/15/20 18:24 Consult Physician Routine Procedures Performed Operation Date: 04/15/20 15:00 Actual Procedures p Cineradiography w/Routine Exam - Jefe Sher MD Ordered Studies 04/15/20 14:10 CL Cath Imgs for PACS use only Stat Hospital Course (1) SOB (shortness of breath): 45-year-old man with past medical history of chronic bronchiectasis, COPD, asthma, osteoporosis, status post hip replacement of right hip with chronic bursitis, hearing loss, vocal cord dysfunction, pectus excavatum, who presents with progressive dyspnea and chest pain on deep inspiration Chest pain Reports a longstanding history of chest pain approximately a year in nature. Patient reports that he has decreased activity recently, and does most of his work from a chair. He presented secondary to this chest pain, and has had at least 2 other admissions with a similar presentation. He reports the pain is exacerbated by deep inspiration, and is not exertional in nature. He reports that it is relieved minimally relieved by nitroglycerin. He has no major risk factors and has never had a cath but does have multiple comorbidities and history of blood clots. He is currently anticoagulated on Xarelto, which was held on admission in case the procedure was to be performed. Currently on heparin drip. In the ED he had some ECG changes including ST depressions in the lateral leads and T wave inversions, troponins have been trended and negative. On examination chest pain was reproducible on deep palpation of the left chest, upon grasping his pec muscle in between my fingers I was able to reproduce the pain. Cardiology was consulted they felt given the chronicity of his symptoms a heart cath was warranted, heart cath demonstrated no abnormalities, echocardiogram demonstrated no abnormalities, EKG was thought to be nonspecific changes, cardiac enzymes were negative. I believe the majority of his pain is likely secondary to musculoskeletal, on the day of discharge I learned that he uses his left hand to use his cane, this certainly could exacerbate his pec muscles and produce similar type symptoms. I offered a muscle relaxer to which he denied, recommending instead that he follow-up for OMM I provided him with the names of Josh Cates and Arnaud Curiel. Shortness of breath Patient with a history of COPD, progressive shortness of breath. Was given a prescription for Augmentin during last admission however never completed it. Given his history we will treat as a COPD exacerbation. Given Solu-Medrol in the ED, CTA showed no consolidation and no emboli pro-Tommy was negative. Patient has a history of prolonged prednisone taper is 12 days we will discharge him on a 12-day prednisone taper and 2 days of Zithromax to complete his antibiotic therapy. The day of discharge the patient's request pulmonology was consulted and recommended following up with his internal medicine physician and pulmonary rehab -Complete antibiotic course with an additional 2 doses of Zithromax -Complete prednisone taper Day 1 (tomorrow) please take 4 10 mg pills of prednisone for total of 40 mg Day 2 please take 4 10 mg pills of prednisone for total of 40 mg Day 3 please take 3 10 mg pills of prednisone for total of 30 mg Day 4 please take 3 10 mg pills of prednisone for total of 30 mg Day 5 please take 3 10 mg pills of prednisone for total of 30 mg Day 6 please take 3 10 mg pills of prednisone for total of 30 mg Day 7 please take 2 10 mg pills of prednisone for total of 20 mg Day 8 please take 2 10 mg pills of prednisone for total of 20 mg Day 9 please take 2 10 mg pills of prednisone for total of 20 mg Day 10 please take 2 10 mg pills of prednisone for total of 20 mg Day 11 please take 1 10 mg pills of prednisone for total of 10 mg Day 12 please take 1 10 mg pills of prednisone for total of 10 mg Day 13 please take 1 10 mg pills of prednisone for total of 10 mg Day 14 please take 1 10 mg pills of prednisone for total of 10 mg Hip pain Patient with chronic bursitis, had injection recently but still having bad pain. -Pain well-controlled on discharge Anxiety Continued clonazepam 0.5 mg 3 times daily as needed F/E/N: Heart healthy diet DVT prophylaxis: Resume Xarelto on discharge Dispo: Home pt/ot: ordered Full code (2) Chest pain: (3) Weakness: (4) Abnormal ECG: (5) Acute dyspnea: (6) Vocal cord dysfunction: (7) Hx of deep venous thrombosis: (8) Cylindrical bronchiectasis: (9) Right ventricular enlargement: (10) Pulmonary hypertension: (11) Hx pulmonary embolism: (12) Trochanteric bursitis of right hip: Total Time Total Time Spent Total Time Spent (In Minutes): 36 Discharge Plan Discharge Items Patient Disposition: Home - Self-Care Reason For Visit: CHEST PAIN,COPD EXACERBATION,RIGHT HIP PAIN Discharge Diagnosis: Chest pain rule out requiring diagnostic cardiac catheterization setting of COPD exacerbation complicated by longstanding history of COPD, unspecified genetic disorder, history of pulmonary embolism, chronic bronchiectasis, history of asthma and allergies Activity: Resume your previous activity Non-emergency contact: Primary Care Provider Call non-emergency contact if: you have any medication questions, your pain is not controlled and your temperature is above 101.5 Follow-up/Referrals: Jefe Adorno MD [Primary Care Provider] - Diet: Regular and Heart Healthy Addtl Attending Provider Instructions: Care instructions: You were admitted to [facility] for treatment of COPD exacerbation and chest pain. While hospitalized you were initially provided with antibiotic azithromycin and steroids for presumed COPD exacerbation. You still endorse chest pain, and had some EKG changes we consulted cardiology who felt she might benefit from a heart catheterization, which demonstrated normal intrapulmonary intracardiac pressures, no pulmonary hypertension, normal pulmonary capillary wedge pressure, normal cardiac output. The EKG was evaluated by the printing press machinist as well who felt that the changes are nonspecific in nature. He was also evaluated by pulmonology who recommended he follow-up with him as an outpatient. As we discussed during your admission given the fact that I was able to reproduce the pain on the left side by palpation, was able to reproduce it by palpating the pectoral muscle, and the fact he has numerous risk factors including using the cane on that side, sitting in a chair etc. I believe that the vast majority of your pain is likely musculoskeletal in nature. To that extent I recommend NSAIDs, warm or cold compresses, and physical therapy to work on cane posturing usage. We recommend you follow-up with your PCP on discharge to discuss this. Left chest pain -Chest pain work-up was negative -Diagnostic cath was negative -Echocardiography demonstrated normal left ventricular systolic function and no significant valvular disease there were no significant changes when compared to 09/18/2019 -Given your negative work-up I believe the pain is musculoskeletal in nature -Recommend NSAIDs, warm and cold compresses, and physical therapy COPD EXACERBATION You were diagnosed with a COPD exacerbation during this admission. You are provided with steroids and IV antibiotics. He has been converted to oral formulations for discharge. On discharge please take 1 azithromycin per day for 2 days, and complete a 12-day prednisone taper as described below. -Your [facility] [place] -Please take 1 azithromycin 250 mg/day for 2 days -Please take prednisone as follows you have already received 2 days of 40 mg of prednisone we have scheduled a prolonged taper for you -you have been prescribed nightly a 10 mg dose to facilitate the taper Day 1 (tomorrow) please take 4 10 mg pills of prednisone for total of 40 mg Day 2 please take 4 10 mg pills of prednisone for total of 40 mg Day 3 please take 3 10 mg pills of prednisone for total of 30 mg Day 4 please take 3 10 mg pills of prednisone for total of 30 mg Day 5 please take 3 10 mg pills of prednisone for total of 30 mg Day 6 please take 3 10 mg pills of prednisone for total of 30 mg Day 7 please take 2 10 mg pills of prednisone for total of 20 mg Day 8 please take 2 10 mg pills of prednisone for total of 20 mg Day 9 please take 2 10 mg pills of prednisone for total of 20 mg Day 10 please take 2 10 mg pills of prednisone for total of 20 mg Day 11 please take 1 10 mg pills of prednisone for total of 10 mg Day 12 please take 1 10 mg pills of prednisone for total of 10 mg Day 13 please take 1 10 mg pills of prednisone for total of 10 mg Day 14 please take 1 10 mg pills of prednisone for total of 10 mg You have any questions about your medication regimen please feel free to contact us or your primary care physician A discharge summary will be sent to your primary care physician to ensure continuity of care. Please bring this discharge summary with you to your next office appointment so that your provider can review it at that time. Follow-up appointments: - Keep all your follow-up appointments as already scheduled. If you cannot make an appointment, notify your provider. - Please call to request a follow-up appointment with your primary care physician within one week of discharge. Please let us know if you are unable to obtain an appointment Follow-up labs: - Please go to a lab nearest you and obtain the requested lab work. Please have this completed at least 3 hours before your doctor's appointment (or the day before your appointment if possible). Medications: - Your medication list has been reviewed and reconciled upon discharge to ensure accuracy and continuity of care. - You are provided with a list of all your current medications at this time. Please review this list closely and make note of any changes. - Please take all of your medications exactly as prescribed. - Tell your primary care provider if you cannot afford your medications. - Call your primary care provider if you are having any side effects or any other problems. - Call your primary care provider before taking any over the counter medications or supplements, including herbals and vitamins, because some of these may interact with your current medications and/or make your symptoms worse. Symptoms: Please call your primary care provider for symptoms including, but not limited to: fevers (temperatures greater than 100.4), chills, intractable nausea or vomiting, diarrhea, rash, shortness of breath, bleeding, pain, or if you experience any worsening of the symptoms that brought you to the hospital. For EMERGENCY and VERY SERIOUS health-related issues, such as chest pain, shortness of breath, or sudden onset of the symptoms that brought you to the hospital, you may need to call 911 or go directly to the Emergency Room It has been our privilege to take care of you during your hospital stay. And Above All Else Feel Better! Best Wishes, Brannon Bolaños MD PGY2 Resident, Family & Community Medicine [facility] FCM Residency at [facility] [place] [address] [facility], [address] MC: [address] [place] [address] Pending Studies at Discharge: No Stand-Alone Forms: My [facility], Smoking Cessation Medications and DC Order Prescriptions: New prednisone 10 mg tablet 40 mg PO QAM Qty: 32 RF: 0 azithromycin 250 mg tablet 250 mg PO DAILY 2 Days Qty: 2 RF: 0 Continued levalbuterol HCl 1.25 mg/3 mL solution for nebulization 1.25 mg INH Q4H Qty: 540 RF: 1 levothyroxine 25 mcg tablet 25 mcg PO QAM Qty: 90 RF: 3 montelukast [Singulair] 10 mg tablet 10 mg PO HS Qty: 90 RF: 1 omeprazole 20 mg capsule,delayed release(DR/EC) 40 mg PO QAM Qty: 90 RF: 1 Xarelto 20 mg tablet 20 mg PO QAM Qty: 90 RF: 3 levalbuterol tartrate 45 mcg/actuation HFA aerosol inhaler 2 puffs INHALATION Q4H PRN (Reason: Shortness Of Breath Or Wheezing) Qty: 45 RF: 1 clonazepam 0.5 mg tablet 0.5 mg PO TID PRN (Reason: shortness of breath or wheezing) 90 Days Qty: 180 RF: 0 Trelegy Ellipta 100-62.5-25 mcg blister with device 1 puffs INH QAM Qty: 1 RF: 4 diltiazem HCl 60 mg tablet 60 mg PO HS Qty: 90 RF: 1 prednisone 10 mg tablet See Rx Instructions PO DAILY Qty: 36 RF: 0 ipratropium bromide 0.02 % solution 3 ml inhalation Q6H PRN (Reason: Shortness Of Breath Or Wheezing) Qty: 150 RF: 0 docusate sodium 100 mg capsule 100 mg PO DAILY RF: 0 ascorbic acid (vitamin C) 500 mg tablet 1,000 mg PO QAM RF: 0 cholecalciferol (vitamin D3) 2,000 unit capsule 2,000 units PO QAM RF: 0 omega-3 fatty acids [Fish Oil Concentrate] 1,000 mg capsule 1,000 mg PO QAM RF: 0 multivitamin Tablet 1 tab PO QAM RF: 0 azelastine 137 mcg (0.1 %) aerosol,spray 1 spray Intranasal QAM RF: 0 calcium carbonate-vitamin D3 [Calcium 600 + D(3)] 600 mg(1,500mg) -400 unit Tablet 1 tab PO BID RF: 0 fexofenadine [Dilma Allergy] 180 mg tablet 180 mg PO QAM RF: 0 polysaccharide iron complex [Ferrex 150] 150 mg iron capsule 150 mg PO QAM RF: 0 epinephrine [EpiPen 2-Dustin] 0.3 mg/0.3 mL auto-injector 0.3 mg IM Q15M PRN (Reason: Anaphylaxis) RF: 0 Xolair 150 mg recon soln 150 mg SQ UD RF: 0 acetylcysteine 100 mg/mL (10 %) solution 2 ml INH QAM RF: 0 Prolia 60 mg/mL Syringe 60 mg subcut Q6M RF: 0 diclofenac sodium 1 % Gel 4 g TOPICAL BID PRN (Reason: Pain) RF: 0 Discharge Orders: Discharge Order (Routine); Ordered 04/16/20 Ordered By: Brannon Bolaños Admission Data Admit Date/Time: 04/14/20 23:13 Attending Provider: Garrison Mcrae Admit Provider: Ciaran De León Primary Care Provider: Jefe Adorno Other Providers: Rosales Gray ; Jeremi Sosa ; Cesar Morrissey ; Ammon Roger ; Joanie Cloud ; Kyler Thapa ; Malik Kauffman ; Billy Vega ; Fermín Montana ; Agustin Wray Resident Activity Tracking Resident Involvement: Resident Care Provided Care Provided: Adult Hospital Medicine
--- NOTE | 2020-04-16 19:17 | Electrocardiogram Report ---
Test Reason : Blood Pressure : / mmHG Vent. Rate : 054 BPM Atrial Rate : 058 BPM P-R Int : 142 ms QRS Dur : 082 ms QT Int : 404 ms P-R-T Axes : 050 000 001 degrees QTc Int : 383 ms Sinus bradycardia with sinus arrhythmia T wave abnormality, consider anterior ischemia Abnormal ECG When compared with ECG of 15-APR-2020 07:36, Vent. rate has decreased BY 43 BPM T wave inversion no longer evident in Lateral leads QT has shortened Confirmed by Barrington Sher ([id number]) on 04/16/2020 7:16:38 PM Referred By: REFERRED SELF Confirmed By:Meliton Sher
== END 2020-04-16 18:30 | disposition home or self-care (01) ==
LOC: ED 19:43 → INTOOBSV 23:13 → 2E 23:13 → SUATTDRO 23:13 → 2E 23:33
PROC: CLB.CRH (2020-04-15 15:00)

== ENCOUNTER 2021-02-18 13:31 | Observation (INO) ==
[2021-02-18] MEDS ORDERED: LORazepam 0.5 MG/1 ML VIAL IV STA (15:22)
[2021-02-18] MEDS ORDERED: methylPREDNISolone 125 MG/2 ML VIAL IV STA (15:22)
[2021-02-18] MEDS ORDERED: ALBUT/IPRATROP 3MG/0.5MG NEB 3 ML VIAL NEB STA ×2 (15:22→17:09)
[2021-02-18 15:50] LABS: Eosinophils # (auto) 0.01 K/uL (0-0.5); Eosinophils % (auto) 0.2 %; Hematocrit (blood only) 44.8 % (42-52); Hemoglobin 14.7 g/dL (14.0-18.0); Immature Granulocytes # (auto) 0.08 K/uL (0.00-0.02); Immature Granulocytes % (auto) 1.2 %; Lymphocytes % (auto) 10.8 %; Mean Corpuscular Hemoglobin 31.4 pg (25-34); Mean Corpuscular Hgb Conc 32.8 g/dL (32-36); Mean Corpuscular Volume 95.7 fL (80-100); Mean Platelet Volume 9.7 fL (7.4-10.4); Monocytes # (auto) 0.69 K/uL (0.11-0.59); Monocytes % (auto) 10.6 %; Neutrophils # (auto) 5.01 K/uL (1.4-6.5); Neutrophils % (auto) 77.2 %; Platelet Count 169 K/uL (130-400); RDW Coefficient of Variation 15.4 % (11.5-14.5); RDW Standard Deviation 54.1 fL (36.4-46.3); Red Blood Count 4.68 M/uL (4.7-6.1); White Blood Count 6.49 K/uL (4.8-10.8)
[2021-02-18 15:54] LABS: Base Excess VBG 3.1 mEq/L; HCO3 VBG 28 mmol/L; PCO2 VBG 42 mmHg (38-50); PO2 VBG 20 mmHg; pH VBG 7.44 (7.36-7.41)
[2021-02-18 15:56] LABS: Oxygen Saturation VBG < 60.0 %
[2021-02-18 15:58] LABS: INR 1.2 (0.9-1.1); Partial Thromboplastin Ratio 1.1; Partial Thromboplastin Time 27.7 Seconds (21.0-31.0); Prothrombin Time 11.9 Seconds (9.0-12.0)
[2021-02-18 16:04] LABS: BUN Creatinine Ratio 19.5 (10-20); Blood Urea Nitrogen 15 mg/dl (7-18); Calcium 8.9 mg/dl (8.5-10.1); Carbon Dioxide 28 mmol/L (21-32); Chloride 109 mmol/L (98-107); Creatinine Clr Calc Pharmacy 129.2 ml/min; Est GFR (African American) 127.5 ml/min; Glucose 100 mg/dl (70-99); Sodium 142 mmol/L (136-145)
[2021-02-18 16:09] LABS: Troponin I < 0.015 ng/ml (0-0.045)
--- NOTE | 2021-02-18 16:49 | XRay Report ---
XR chest 2V PA/lateral HISTORY: 45 years-old Male sob acute shortness of breath COMPARISON: Acute abdominal series radiographs 12/17/2020 TECHNIQUE: PA and lateral views of the chest FINDINGS: Cardiac silhouette is enlarged. Chronic interstitial coarsening. No pneumothorax, pleural effusion, a irspace consolidation or overt pulmonary edema. Degenerative changes of the shoulders and spine. Nume rosalinda thoracic compression deformities. IMPRESSION: Cardiomegaly with chronic interstitial coarsening. ACT 112: Negative or not required by law. The above report was generated using voice recognition software. It may contain grammatical, syntax o r spelling errors. Electronically signed by: Avery Moody M.D. 02/18/2021 4:48 PM
--- NOTE | 2021-02-18 17:07 | Emergency Department Note ---
History of Present Illness General Chief Complaint: Shortness of Breath/Dyspnea Stated Complaint: SOB Time Seen by Provider: 02/18/21 15:17 History of Present Illness Provider Complaint: shortness of breath Onset (ago): day(s) (4) Severity: severe Consistency/Duration: + progressively worsening Maximum Pain Intensity: 0 Current Pain Intensity: 0 Relieved By: + nothing Exacerbated By: + exertion, + coughing and + talking Context: no recent illness, no occurred during exertion, no choking/aspiration, no medication noncompliance, no allergen exposure, no recent travel, no smoke/fume exposure, no elevated blood glucose or no CO exposure Known history of: COPD, asthma and PE (On Xarelto has not missed any doses) Associated symptoms: + wheezing; no fever, no cough, no sputum production, no orthopnea, no polyuria, no polydipsia, no palpitations, no diaphoresis, no abdominal pain or no chest congestion Treatment prior to arrival: oxygen and bronchodilator HPI Narrative: Patient states his bronchodilators not helping at home. Patient states he is vaccinated gets COVID-19. Home Medications Medication Instructions Recorded Confirmed Type azelastine 137 mcg (0.1 %) nasal 1 spray INTRANASAL QAM 09/05/18 02/18/21 History spray aerosol calcium carbonate 600 mg (1,500 1 tab PO BID 09/05/18 02/18/21 History mg)-vitamin D3 400 unit tablet (Calcium 600 + D(3)) multivitamin 1 tab PO QAM 09/05/18 02/18/21 History denosumab 60 mg/mL subcutaneous 60 mg SUBCUT Q6M 10/10/18 02/18/21 History syringe (Prolia) diclofenac sodium 1 % topical gel 4 g TOPICAL BID PRN 01/13/19 02/18/21 History ascorbic acid (vitamin C) 500 mg 1,000 mg PO QAM tab 03/27/19 02/18/21 History tablet cholecalciferol (vitamin D3) 50 2,000 units PO QAM cap 03/27/19 02/18/21 History mcg (2,000 unit) capsule fexofenadine 180 mg tablet 180 mg PO QAM 03/27/19 02/18/21 History (Dilma Allergy) omega-3 fatty acids 1,000 mg 1,000 mg PO QAM 04/13/19 02/18/21 History capsule (Fish Oil Concentrate) epinephrine 0.3 mg/0.3 mL 0.3 mg IM Q15M PRN 09/17/19 02/18/21 History injection, auto-injector (EpiPen 2-Dustin) levalbuterol tartrate 45 2 puffs INHALATION Q4H PRN #45 gm 02/28/20 02/18/21 Rx mcg/actuation aerosol inhaler polysaccharide iron complex 150 mg 150 mg PO QAM #90 cap 06/24/20 02/18/21 Rx iron capsule (Ferrex) levothyroxine 25 mcg tablet 25 mcg PO QAM #90 tab 07/09/20 02/18/21 Rx ofloxacin 0.3 % ear drops 5 drp OTIC (EAR) BID 10 Days #5 ml 08/18/20 02/18/21 Rx diltiazem HCl 60 mg tablet 60 mg PO HS #90 tab 09/10/20 02/18/21 Rx escitalopram oxalate 10 mg tablet 10 mg PO QAM 09/11/20 02/18/21 History pantoprazole 40 mg tablet,delayed 40 mg PO QAM #90 tab 09/25/20 02/18/21 Rx release montelukast 10 mg tablet 10 mg PO HS #90 tab 11/03/20 02/18/21 Rx (Singulair) levalbuterol HCl 1.25 mg/3 mL 1.25 mg INH Q4H #540 vial 12/11/20 02/18/21 Rx solution for nebulization fluticasone fur. 200 mcg-umeclid 1 inh INHALATION QAM #3 inhaler 12/30/20 02/18/21 Rx 62.5 mcg-vilant 25 mcg inhalat.powder (Trelegy Ellipta) linaclotide 290 mcg capsule 290 mcg PO DAILY #90 cap 12/31/20 02/18/21 Rx (Linzess) acetylcysteine 100 mg/mL (10 %) 2 ml INH QAM #90 ml 01/13/21 02/18/21 Rx solution rivaroxaban 20 mg tablet (Xarelto) 20 mg PO QAM #90 tab 01/13/21 02/18/21 Rx clonazepam 0.5 mg tablet (Klonopin) 0.5 mg PO TID #180 tab 06/10/21 07/14/21 Rx omalizumab 150 mg subcutaneous 150 mg SQ MONTHLY #1 ea 02/02/21 02/18/21 Rx solution (Xolair) amoxicillin 500 mg tablet 2,000 mg PO UD PRN #4 tab 02/18/21 Rx prednisone 10 mg tablet See Rx Instructions PO DAILY #36 02/18/21 Rx tab Allergies Allergy/AdvReac Type Severity Reaction Status Date / Time gluten Allergy Mild STOMACH Verified 02/18/21 10:34 ISSUES Cipro AdvReac Intermediate issue with Verified 08/19/17 14:34 legs ciprofloxacin AdvReac Intermediate issue with Verified 02/18/21 10:34 legs oxycodone AdvReac Mild GI upset Verified 02/18/21 10:34 Past Med/Surg History Medical History Atrial tachycardia Bronchiectasis FOLLOWS WITH PULMONARY--multiple inhalers/nebulizer Chest pain Chronic reflux esophagitis Chronic rhinitis Degenerative joint disease (DJD) of hip Dextroscoliosis Dysfunction of both eustachian tubes GERD (gastroesophageal reflux disease) H/O lymphopenia Hearing deficit HEARING AIDS History of undescended testicle Hx of deep venous thrombosis 2016 Hx pulmonary embolism 2016 Hypothyroidism Long-term (current) use of anticoagulants, INR goal 2.5-3.5 xarelto daily Malaria Nausea and vomiting after administration of anesthetic agent On home oxygen therapy 2L via Bipap every night Osteoporosis Pectus excavatum Severe persistent asthma Steroid-induced avascular necrosis of hip Venous insufficiency Vitamin D deficiency Vocal cord dysfunction Surgical History History of bilateral cataract extraction History of bronchoscopy multiple History of cardiac cath (~04/15/20) 2019 @ [facility]--No stents placed History of colonoscopy 2020 History of ear surgery X4 History of placement of ear tubes left ear History of tooth extraction Hx of hemorrhoidectomy S/P total hip arthroplasty Right Family History Mother Osteoporosis Father Prostate cancer Coronary heart disease Unknown Prostate cancer Grandmother (Paternal) Family history of diabetes mellitus Other Allergies Asthma Cancer Diabetes Hearing loss Heart disease No family history of adverse response to anesthesia No family history of bleeding disorder Stroke Denies family history of Hypertension Social History Smoking Status: Never smoker Second Hand Exposure: No; Hx Alcohol Use: No Hx Substance Use: No Preferred Language: Bruneian Communication Ability: Effective Visual Impairment: No Limitations Hearing Ability: Use of Hearing Aid 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 Aircraft Required: No Beliefs That Will Affect Care: None marital status: Current Living Situation: Spouse Current Living Situation Comment: Lives with and 15yr old son current occupational status: employed and unemployed 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 How many Children do You have: 1 Feels Safe at Home: Yes Assistive Devices: Glasses Review of Systems A total of 10 systems reviewed and were otherwise negative Physical Exam Vital Signs: Vital Signs - 24 hr 02/18/21 13:35 02/18/21 15:32 02/18/21 15:55 Temperature 37.0 C Temperature Source Temporal Artery Sc an Pulse Rate 90 Pulse Rate [Right Finger] 55 L 58 L Respiratory Rate 18 18 24 Respiratory Effort / Characteristics Spontaneous Blood Pressure 116/72 Blood Pressure [Le ft Arm] 106/56 L Blood Pressure Harini n 86 Blood Pressure Harini n [Left Arm] 72 Pulse Oximetry 97 95 96 Oxygen Delivery Me thod Nebulizer Nasal Cannula Oxygen Flow Rate 2 Sepsis Recent Feve r Within 48 Hours No Sepsis New/Unexpla ined Change in Men param Status No Sepsis Action Take n by Nursing No Action Required 02/18/21 17:00 02/18/21 17:53 Temperature Temperature Source Pulse Rate Pulse Rate [Right Finger] 58 L 52 L Respiratory Rate 18 18 Respiratory Effort / Characteristics Spontaneous Blood Pressure Blood Pressure [Le ft Arm] 103/64 Blood Pressure Harini n Blood Pressure Harini n [Left Arm] 77 Pulse Oximetry 99 98 Oxygen Delivery Me thod Room Air Nasal Cannula Oxygen Flow Rate 1 Sepsis Recent Feve r Within 48 Hours Sepsis New/Unexpla ined Change in Men param Status Sepsis Action Take n by Nursing Physical Exam: Physical Exam HENT: Exam performed. - Head: Normocephalic and atraumatic. - Right Ear: External ear normal. No mastoid tenderness. - Left Ear: External ear normal. No mastoid tenderness. - Mouth/Throat: The oropharynx is clear and moist. No trismus in the jaw. No dental abscesses or uvula swelling. No oropharyngeal exudate or tonsillar abscesses. EYES: Conjunctivae and EOM are normal. Pupils are equal, round, and reactive to light. Right eye exhibits no discharge. Left eye exhibits no discharge. No scleral icterus. NECK: Normal range of motion. Neck supple. No JVD present. No spinous process tenderness present. No carotid bruit present. No rigidity. No tracheal deviation and normal range of motion present. No Brudzinski's sign and no Kernig's sign noted. CV: Normal rate, regular rhythm, normal heart sounds and intact distal pulses. There is no peripheral edema. Palpable radial pulses bue. PULM/CHEST: Tachypneic no stridor. Rhonchi bilaterally. He has no wheezes. He has no rales. - Chest Wall: Pectus excavatum. He exhibits no tenderness. ABD: The abdomen is soft. Bowel sounds are normal. He has no distension. No mass is present. There is no tenderness. There is no rebound, no guarding, no M urphy's sign and no tenderness at McBurney's point. Rovsig negative. MUSC/SKEL: Normal range of motion. There is no peripheral edema, tenderness or deformity. LYMPH: No cervical adenopathy. NEURO: He is alert and oriented to person, place, and time. He has normal strength. No cranial nerve deficit or sensory deficit. Coordination and gait normal. GCS eye subscore is 4. GCS verbal subscore is 5. GCS motor subscore is 6. Cerebellar tests wnl. SKIN: Skin is warm and dry. He is not diaphoretic. PSYCH: Patient appears anxious. Course Course 151: The patient was evaluated in room C11. A complete history and physical exam was performed Cardiac monitoring: An order was placed for continuous cardiac monitoring. The monitor shows a rate of 60 with sinus rhythm 171: Vital signs stable. On reassessment the patient is still tachypneic. He states he is not feeling any better. Lungs are clear to auscultation now after breathing treatment. Patient was requesting oxygen and placed on nasal cannula. His oxygen saturations without the oxygen were okay. Labs within normal limits. Chest x-ray showed no infiltrate. Given the patient's history of bronchiectasis, will obtain CT of the chest. Patient does state he is compliant with Xarelto however given the degree of tachypnea and air hunger we will obtain CT of the chest to rule out PE as well as any infiltrate. Repeat DuoNeb ordered for the patient. 1821: Vital signs stable. CTA of the chest negative for PE or pneumonia. Patient is still reporting dyspnea. His vitals are all stable. Patient was offered inpatient observation for COPD exacerbation versus outpatient follow-up and patient chose to be admitted to the hospital overnight. Patient will be admitted to [facility] team for COPD exacerbation. Discussed with Harris WRIGHT who stated to admit to Dr. Matamoros Administered Medications Discontinued Medications Albuterol (Albut/Ipratrop 3mg/0.5mg Neb 3 Ml Vial) 3 ml NEB NOW STA Stop: 02/18/21 15:23 Last Admin: 02/18/21 15:55 Dose: 3 ml Documented by: [id number] Albuterol (Albut/Ipratrop 3mg/0.5mg Neb 3 Ml Vial) 3 ml NEB NOW STA Stop: 02/18/21 17:10 Last Admin: 02/18/21 17:51 Dose: 3 ml Documented by: [id number] Lorazepam (Ativan) 0.5 mg in 1 mls @ 1 mls/min IV NOW STA Stop: 02/18/21 15:23 Last Admin: 02/18/21 15:53 Dose: 1 mls/min Documented by: [id number] Ioversol (Optiray 320 125ml) 120 ml IV ONCE ONE Stop: 02/18/21 17:34 Last Admin: 02/18/21 17:34 Dose: 120 ml Documented by: [id number] Methylprednisolone (Methylprednisolone 125 Mg/2 Ml Vial) 125 mg IV NOW STA Stop: 02/18/21 15:23 Last Admin: 02/18/21 15:53 Dose: 125 mg Documented by: [id number] Medical Decision Making Laboratory Data Result diagrams: 02/18/21 15:31 02/18/21 15:31 Lab Results 02/18/21 02/18/21 02/18/21 Range/Units 15:31 15:31 15:31 WBC 6.49 (4.8-10.8) K/uL RBC 4.68 L (4.7-6.1) M/uL Hgb 14.7 (14.0-18.0) g/dL Hct 44.8 (42-52) % MCV 95.7 (80-100) fL MCH 31.4 (25-34) pg MCHC 32.8 (32-36) g/dL RDW Std Deviation 54.1 H (36.4-46.3) fL RDW Coeff of Ligia 15.4 H (11.5-14.5) % Plt Count 169 (130-400) K/uL MPV 9.7 (7.4-10.4) fL Immature Gran % (Auto) 1.2 % Neut % (Auto) 77.2 % Lymph % (Auto) 10.8 % Owsley % (Auto) 10.6 % Eos % (Auto) 0.2 % Baso % (Auto) 0.0 % Neut # (Auto) 5.01 (1.4-6.5) K/uL Lymph # (Auto) 0.70 L (1.2-3.4) K/uL Owsley # (Auto) 0.69 H (0.11-0.59) K/uL Eos # (Auto) 0.01 (0-0.5) K/uL Baso # (Auto) 0.00 (0-0.2) K/uL Immature Gran # (Auto) 0.08 H (0.00-0.02) K/uL PT 11.9 (9.0-12.0) Seconds INR 1.2 H (0.9-1.1) APTT 27.7 (21.0-31.0) Seconds PTT Ratio 1.1 VBG pH (7.36-7.41) VBG pCO2 (38-50) mmHg VBG pO2 mmHg VBG HCO3 mmol/L VBG O2 Saturation % VBG Base Excess mEq/L Barometric Pressure mm/Hg Sodium 142 (136-145) mmol/L Potassium 4.0 (3.5-5.1) mmol/L Chloride 109 H (98-107) mmol/L Carbon Dioxide 28 (21-32) mmol/L Anion Gap 5.0 (3-11) BUN 15 (7-18) mg/dl Creatinine 0.75 (0.6-1.4) mg/dl Est Cr Clr Drug Dosing 129.2 ml/min Est GFR ( Amer) 127.5 ml/min Est GFR (Non-Af Amer) 110.0 ml/min BUN/Creatinine Ratio 19.5 (10-20) Glucose 100 H (70-99) mg/dl Calcium 8.9 (8.5-10.1) mg/dl Troponin I < 0.015 (0-0.045) ng/ml COVID-19 Eval Order 02/18/21 02/18/21 Range/Units 15:31 17:37 WBC (4.8-10.8) K/uL RBC (4.7-6.1) M/uL Hgb (14.0-18.0) g/dL Hct (42-52) % MCV (80-100) fL MCH (25-34) pg MCHC (32-36) g/dL RDW Std Deviation (36.4-46.3) fL RDW Coeff of Ligia (11.5-14.5) % Plt Count (130-400) K/uL MPV (7.4-10.4) fL Immature Gran % (Auto) % Neut % (Auto) % Lymph % (Auto) % Owsley % (Auto) % Eos % (Auto) % Baso % (Auto) % Neut # (Auto) (1.4-6.5) K/uL Lymph # (Auto) (1.2-3.4) K/uL Owsley # (Auto) (0.11-0.59) K/uL Eos # (Auto) (0-0.5) K/uL Baso # (Auto) (0-0.2) K/uL Immature Gran # (Auto) (0.00-0.02) K/uL PT (9.0-12.0) Seconds INR (0.9-1.1) APTT (21.0-31.0) Seconds PTT Ratio VBG pH 7.44 H (7.36-7.41) VBG pCO2 42 (38-50) mmHg VBG pO2 20 mmHg VBG HCO3 28 mmol/L VBG O2 Saturation < 60.0 % VBG Base Excess 3.1 mEq/L Barometric Pressure 736.0 mm/Hg Sodium (136-145) mmol/L Potassium (3.5-5.1) mmol/L Chloride (98-107) mmol/L Carbon Dioxide (21-32) mmol/L Anion Gap (3-11) BUN (7-18) mg/dl Creatinine (0.6-1.4) mg/dl Est Cr Clr Drug Dosing ml/min Est GFR ( Amer) ml/min Est GFR (Non-Af Amer) ml/min BUN/Creatinine Ratio (10-20) Glucose (70-99) mg/dl Calcium (8.5-10.1) mg/dl Troponin I (0-0.045) ng/ml COVID-19 Eval Order Covid19 at [facility] Imaging Data Radiologist's Impression: Chest X-Ray 02/18/21 15:23 XR chest 2V PA/lateral HISTORY: 45 years-old Male sob acute shortness of breath COMPARISON: Acute abdominal series radiographs 12/17/2020 TECHNIQUE: PA and lateral views of the chest FINDINGS: Cardiac silhouette is enlarged. Chronic interstitial coarsening. No pneumothorax, pleural effusion, airspace consolidation or overt pulmonary edema. Degenerative changes of the shoulders and spine. Numerous thoracic compression deformities. IMPRESSION: Cardiomegaly with chronic interstitial coarsening. ACT 112: Negative or not required by law. The above report was generated using voice recognition software. It may contain grammatical, syntax or spelling errors. Electronically signed by: Avery Moody M.D. 02/18/2021 4:48 PM Chest CTA 02/18/21 17:13 CT angio chest PE protocol CT DOSE: 382.18 mGy.cm HISTORY: 45 years-old Male with sob hx bronchiectassi. Acute on chronic shortness of breath TECHNIQUE: Multiple CTA images of the chest were obtained after the intravenous administration of 120 ml Optiray. Coronal and sagittal MIPS were obtained from the axial data set and were submitted for review. All measurements were obtai rolo according to NASCET criteria. A dose lowering technique was utilized adhering to the principles of ALARA. COMPARISON: Chest radiograph of same day, CTA chest 04/11/2020 FINDINGS: CTA: Moderate cardiomegaly. No pericardial effusion. Coronary artery calcifications. There is no thoracic aortic aneurysm. Descending thoracic aortic tortuosity. Dilation of the main pulmonary artery measures up to 3.6 cm, possibly representing pulmonary artery hypertension. No pulmonary emboli identified. CT CHEST: No thyroid nodule or adenopathy. No pneumothorax, pleural effusion, airspace consolidation or overt pulmonary edema. Mild pleural thickening of the lung apices. Cylindrical bibasilar bronchiectasis redemonstrated along with linear areas of subsegmental atelectasis/fibrosis. No suspicious pulmonary nodules or masses. The central airways are patent. No acute process of the imaged upper abdomen. Mild nonspecific distal esophageal wall thickening. No acute fracture. Pectus excavatum. Degenerative changes of the shoulders and spine. Chronic appearing lower thoracic compression deformity. Dextroscoliosis of the thoracolumbar junction. IMPRESSION: 1. Cardiomegaly without pulmonary emboli 2. Bibasilar predominant cylindrical bronchiectasis with mild bibasilar atelectasis/scarring. 3. No adenopathy, pleural effusion or airspace consolidation to suggest pneumonia. 4. Pectus excavatum. ACT 112: Negative or not required by law. The above report was generated using voice recognition software. It may contain grammatical, syntax or spelling errors. Electronically signed by: Avery Moody M.D. 02/18/2021 5:53 PM ECG Data Interpretation: Sinus rhythm with rate of 61. CT QRS and QTc intervals within normal limits. No ST elevation or ST depression. [facility] Narrative 1517: The patient was evaluated in room C11. A complete history and physical exam was performed Cardiac monitoring: An order was placed for continuous cardiac monitoring. The monitor shows a rate of 60 with sinus rhythm 1717: Vital signs stable. On reassessment the patient is still tachypneic. He states he is not feeling any better. Lungs are clear to auscultation now after breathing treatment. Patient was requesting oxygen and placed on nasal cannula. His oxygen saturations without the oxygen were okay. Labs within normal limits. Chest x-ray showed no infiltrate. Given the patient's history of bronchiectasis, will obtain CT of the chest. Patient does state he is compliant with Xarelto however given the degree of tachypnea and air hunger we will obtain CT of the chest to rule out PE as well as any infiltrate. Repeat DuoNeb ordered for the patient. 1822: Vital signs stable. CTA of the chest negative for PE or pneumonia. Patient is still reporting dyspnea. His vitals are all stable. Patient was offered inpatient observation for COPD exacerbation versus outpatient follow-up and patient chose to be admitted to the hospital overnight. Patient will be admitted to the [facility] team for COPD exacerbation. Discussed with Harris WRIGHT who stated to admit to Dr. Matamoros Impression & Plan COPD exacerbation, Bronchiectasis Discharge Plan Visit Data Chief Complaint: Shortness of Breath/Dyspnea Stated Complaint: SOB ED Provider: Omero Parham Discharge Problem: COPD exacerbation, Bronchiectasis Patient Disposition: Being Evaluated by Hospitalist Forms Stand Alone Forms: My [facility] Prescriptions Prescriptions: No Action levalbuterol tartrate 45 mcg/actuation HFA aerosol inhaler 2 puffs INHALATION Q4H PRN (Reason: Shortness Of Breath Or Wheezing) Qty: 45 RF: 1 polysaccharide iron complex [Ferrex 150] 150 mg iron capsule 150 mg PO QAM Qty: 90 RF: 3 levothyroxine 25 mcg tablet 25 mcg PO QAM Qty: 90 RF: 3 ofloxacin 0.3 % drops 5 drp otic (ear) BID 10 Days Qty: 5 RF: 8 diltiazem HCl 60 mg tablet 60 mg PO HS Qty: 90 RF: 1 montelukast [Singulair] 10 mg tablet 10 mg PO HS Qty: 90 RF: 1 levalbuterol HCl 1.25 mg/3 mL solution for nebulization 1.25 mg INH Q4H Qty: 540 RF: 1 Trelegy Ellipta 200-62.5-25 mcg blister with device 1 inh inhalation QAM Qty: 3 RF: 1 Linzess 290 mcg capsule 290 mcg PO DAILY Qty: 90 RF: 3 acetylcysteine 100 mg/mL (10 %) solution 2 ml INH QAM Qty: 90 RF: 3 Xarelto 20 mg tablet 20 mg PO QAM Qty: 90 RF: 1 clonazepam [Klonopin] 0.5 mg tablet 0.5 mg PO TID Qty: 180 RF: 0 Xolair 150 mg recon soln 150 mg SQ MONTHLY Qty: 1 RF: 11 amoxicillin 500 mg tablet 2,000 mg PO UD PRN (Reason: prior to procedures) Qty: 4 RF: 3 prednisone 10 mg tablet See Rx Instructions PO DAILY Qty: 36 RF: 0 ascorbic acid (vitamin C) 500 mg tablet 1,000 mg PO QAM RF: 0 cholecalciferol (vitamin D3) 2,000 unit capsule 2,000 units PO QAM RF: 0 omega-3 fatty acids [Fish Oil Concentrate] 1,000 mg capsule 1,000 mg PO QAM RF: 0 pantoprazole 40 mg tablet,delayed release (DR/EC) 40 mg PO QAM Qty: 90 RF: 1 multivitamin Tablet 1 tab PO QAM RF: 0 azelastine 137 mcg (0.1 %) aerosol,spray 1 spray Intranasal QAM RF: 0 calcium carbonate-vitamin D3 [Calcium 600 + D(3)] 600 mg(1,500mg) -400 unit Tablet 1 tab PO BID RF: 0 fexofenadine [Dilma Allergy] 180 mg tablet 180 mg PO QAM RF: 0 epinephrine [EpiPen 2-Dustin] 0.3 mg/0.3 mL auto-injector 0.3 mg IM Q15M PRN (Reason: Anaphylaxis) RF: 0 escitalopram oxalate 10 mg tablet 10 mg PO QAM RF: 0 Prolia 60 mg/mL Syringe 60 mg subcut Q6M RF: 0 diclofenac sodium 1 % Gel 4 g TOPICAL BID PRN (Reason: Pain) RF: 0 Referrals Referrals: Jefe Adorno MD [Primary Care Provider] - Discharge Problem: Bronchiectasis Qualifiers: Bronchiectasis type: with acute exacerbation Qualified Code(s): J47.1 - B ronchiectasis with (acute) exacerbation
--- NOTE | 2021-02-18 17:17 | Electrocardiogram Report ---
Test Reason : Blood Pressure : / mmHG Vent. Rate : 061 BPM Atrial Rate : 061 BPM P-R Int : 142 ms QRS Dur : 088 ms QT Int : 366 ms P-R-T Axes : 038 -05 023 degrees QTc Int : 368 ms Poor data quality, interpretation may be adversely affected Normal sinus rhythm Normal ECG When compared with ECG of 17-NOV-2020 13:55, Non-specific change in ST segment in Inferior leads Confirmed by Barrington Sher ([id number]) on 02/18/2021 5:17:14 PM Referred By: Confirmed By:Meliton Sher
[2021-02-18] MEDS ORDERED: OPTIRAY 320 125ml IV ONE (17:33)
--- NOTE | 2021-02-18 17:54 | CT Scan Report ---
CT angio chest PE protocol CT DOSE: 382.18 mGy.cm HISTORY: 45 years-old Male with sob hx bronchiectassi. Acute on chronic shortness of breath TECHNIQUE: Multiple CTA images of the chest were obtained after the intravenous administration of 120 ml Optiray. Coronal and sagittal MIPS were obtained from the axial data set and were submitted for review. All measurements were obtained according to NASCET criteria. A dose lowering technique was u tilized adhering to the principles of ALARA. COMPARISON: Chest radiograph of same day, CTA chest 04/11/2020 FINDINGS: CTA: Moderate cardiomegaly. No pericardial effusion. Coronary artery calcifications. There is no thoracic aortic aneurysm. Descending thoracic aortic tortuosity. Dilation of the main pulmonary artery measure s up to 3.6 cm, possibly representing pulmonary artery hypertension. No pulmonary emboli identified. CT CHEST: No thyroid nodule or adenopathy. No pneumothorax, pleural effusion, airspace consolidation or overt p ulmonary edema. Mild pleural thickening of the lung apices. Cylindrical bibasilar bronchiectasis rede monstrated along with linear areas of subsegmental atelectasis/fibrosis. No suspicious pulmonary nodu les or masses. The central airways are patent. No acute process of the imaged upper abdomen. Mild nonspecific distal esophageal wall thickening. No acute fracture. Pectus excavatum. Degenerative changes of the shoulders and spine. Chronic appearing lower thoracic compression deformity. Dextroscoliosis of the thoracolumbar junction. IMPRESSION: 1. Cardiomegaly without pulmonary emboli 2. Bibasilar predominant cylindrical bronchiectasis with mild bibasilar atelectasis/scarring. 3. No adenopathy, pleural effusion or airspace consolidation to suggest pneumonia. 4. Pectus excavatum. ACT 112: Negative or not required by law. The above report was generated using voice recognition software. It may contain grammatical, syntax o r spelling errors. Electronically signed by: Avery Moody M.D. 02/18/2021 5:53 PM
--- NOTE | 2021-02-18 20:08 | History & Physical Report ---
Date of Service February 18, 2021 Assessment & Plan (1) COPD exacerbation: Plan: Increase use of inhalers, increase cough, increase oxygen use. - Non productive cough - Inspiratory wheezing bilateral - Minimal oxygen - Nebs q4 - HFA q2 prn in between - Methylpred 40 q6 IV - Azithromycin 500 mg PO then 250mg - Continue montelukast - Flutter valve - BiPAP at night as tolerated - CT scan negative for PE (2) Bronchiectasis: Plan: As above (3) Anxiety: Plan: Continue Klonopin 0.5mg daily - can give another dose tonight if needed for BiPAP or breathlessness (4) Abnormal EKG: Plan: Patient with history of non-specific t wave changes - normal stress ECHO in 2019 - done for dyspnea and t wave changes (5) Vocal cord dysfunction: Plan: As above- anxiety, positive pressure, flutter valve, nebulizers (6) Degenerative joint disease (DJD) of hip: Plan: No acute need - continue calcium carb and vitamin D (7) GERD (gastroesophageal reflux disease): Plan: Continue omeprazole (8) Osteoporosis: Plan: As above for DJD History of Present Illness Primary Care Provider: Barrington Adorno MD 45 YOM with past medical history of VCD, pectus excavatum, bronchiectasis, anxiety, osteopetrosis, idiopathic polyneuropathy, avascular necrosis of hip, Grade I diastolic dysfunction with normal Stress ECHO Feb 20. Patient comes in today for 2 day history of increased shortness of breath and increase use of his nebulizers at home following going outside to a picnic this past weekend. He s tates he has been using his nebulizers every 4 hours at home and he tried to use his BiPAP last night without helping his dyspnea. He had a prescription called in for prednisone but he did not pick it up, he came to the ER first. patient states he has not missed a dose of his Xarelto. In the EMD he had a CTA of the chest performed that did not reveal a PE or acute pulmonary process. He receive d nebulizers with improvement in his oxygenation but not his breathlessness. He also received Ativan for anxiety and steroids. The patient feels like he still can't catch his breath, but is moving air well and is oxygenating well. He will be admitted to medical floor to follow his respiratory efforts and oxygenation. Allergies Allergy/AdvReac Type Severity Reaction Status Date / Time gluten Allergy Mild STOMACH Verified 02/18/21 10:34 ISSUES Cipro AdvReac Intermediate issue with Verified 08/19/17 14:34 legs ciprofloxacin AdvReac Intermediate issue with Verified 02/18/21 10:34 legs oxycodone AdvReac Mild GI upset Verified 02/18/21 10:34 Home Medications Medication Instructions Recorded Confirmed Type azelastine 137 mcg (0.1 %) nasal 1 spray INTRANASAL QAM 09/05/18 02/18/21 History spray aerosol calcium carbonate 600 mg (1,500 1 tab PO BID 09/05/18 02/18/21 History mg)-vitamin D3 400 unit tablet (Calcium 600 + D(3)) multivitamin 1 tab PO QAM 09/05/18 02/18/21 History denosumab 60 mg/mL subcutaneous 60 mg SUBCUT Q6M 10/10/18 02/18/21 History syringe (Prolia) diclofenac sodium 1 % topical gel 4 g TOPICAL BID PRN 01/13/19 02/18/21 History ascorbic acid (vitamin C) 500 mg 1,000 mg PO QAM tab 03/27/19 02/18/21 History tablet cholecalciferol (vitamin D3) 50 2,000 units PO QAM cap 03/27/19 02/18/21 History mcg (2,000 unit) capsule fexofenadine 180 mg tablet 180 mg PO QAM 03/27/19 02/18/21 History (Dilma Allergy) omega-3 fatty acids 1,000 mg 1,000 mg PO QAM 04/13/19 02/18/21 History capsule (Fish Oil Concentrate) epinephrine 0.3 mg/0.3 mL 0.3 mg IM Q15M PRN 09/17/19 02/18/21 History injection, auto-injector (EpiPen 2-Dustin) levalbuterol tartrate 45 2 puffs INHALATION Q4H PRN #45 gm 02/28/20 02/18/21 Rx mcg/actuation aerosol inhaler polysaccharide iron complex 150 mg 150 mg PO QAM #90 cap 06/24/20 02/18/21 Rx iron capsule (Ferrex) levothyroxine 25 mcg tablet 25 mcg PO QAM #90 tab 07/09/20 02/18/21 Rx ofloxacin 0.3 % ear drops 5 drp OTIC (EAR) BID 10 Days #5 ml 08/18/20 02/18/21 Rx diltiazem HCl 60 mg tablet 60 mg PO HS #90 tab 09/10/20 02/18/21 Rx escitalopram oxalate 10 mg tablet 10 mg PO QAM 09/11/20 02/18/21 History pantoprazole 40 mg tablet,delayed 40 mg PO QAM #90 tab 09/25/20 02/18/21 Rx release montelukast 10 mg tablet 10 mg PO HS #90 tab 11/03/20 02/18/21 Rx (Singulair) levalbuterol HCl 1.25 mg/3 mL 1.25 mg INH Q4H #540 vial 12/11/20 02/18/21 Rx solution for nebulization fluticasone fur. 200 mcg-umeclid 1 inh INHALATION QAM #3 inhaler 12/30/20 02/18/21 Rx 62.5 mcg-vilant 25 mcg inhalat.powder (Trelegy Ellipta) linaclotide 290 mcg capsule 290 mcg PO DAILY #90 cap 12/31/20 02/18/21 Rx (Linzess) acetylcysteine 100 mg/mL (10 %) 2 ml INH QAM #90 ml 01/13/21 02/18/21 Rx solution rivaroxaban 20 mg tablet (Xarelto) 20 mg PO QAM #90 tab 01/13/21 02/18/21 Rx clonazepam 0.5 mg tablet (Klonopin) 0.5 mg PO TID #180 tab 01/15/21 02/18/21 Rx omalizumab 150 mg subcutaneous 150 mg SQ MONTHLY #1 ea 02/02/21 02/18/21 Rx solution (Xolair) amoxicillin 500 mg tablet 2,000 mg PO UD PRN #4 tab 02/18/21 02/18/21 Rx Past Med/Surg History Medical History Atrial tachycardia Bronchiectasis FOLLOWS WITH PULMONARY--multiple inhalers/nebulizer Chest pain Chronic reflux esophagitis Chronic rhinitis Degenerative joint disease (DJD) of hip Dextroscoliosis Dysfunction of both eustachian tubes GERD (gastroesophageal reflux disease) H/O lymphopenia Hearing deficit HEARING AIDS History of undescended testicle Hx of deep venous thrombosis 2016 Hx pulmonary embolism 2016 Hypothyroidism Long-term (current) use of anticoagulants, INR goal 2.5-3.5 xarelto daily Malaria Nausea and vomiting after administration of anesthetic agent On home oxygen therapy 2L via Bipap every night Osteoporosis Pectus excavatum Severe persistent asthma Steroid-induced avascular necrosis of hip Venous insufficiency Vitamin D deficiency Vocal cord dysfunction Surgical History History of bilateral cataract extraction History of bronchoscopy multiple History of cardiac cath (~04/15/20) 2019 @ [facility]--No stents placed History of colonoscopy 2020 History of ear surgery X4 History of placement of ear tubes left ear History of tooth extraction Hx of hemorrhoidectomy S/P total hip arthroplasty Right Family History Mother Osteoporosis Father Prostate cancer Coronary heart disease Unknown Prostate cancer Grandmother (Paternal) Family history of diabetes mellitus Other Allergies Asthma Cancer Diabetes Hearing loss Heart disease No family history of adverse response to anesthesia No family history of bleeding disorder Stroke Denies family history of Hypertension Social History Smoking Status: Never smoker Second Hand Exposure: No; Hx Alcohol Use: No Hx Substance Use: No Preferred Language: Kenyan Communication Ability: Effective Visual Impairment: No Limitations Hearing Ability: Use of Hearing Aid 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 Required: No Beliefs That Will Affect Care: None marital status: Current Living Situation: Spouse Current Living Situation Comment: Lives with and 15yr old son current occupational status: employed and unemployed 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 How many Children do You have: 1 Feels Safe at Home: Yes Assistive Devices: Glasses Review of Systems Review of Systems: REVIEW OF SYSTEMS: Constitutional: No fever, sweats or chills Eyes: No diplopia, no worsening or blurred vision ENT: normal hearing, no trouble swallowing Respiratory: (+) cough, sputum, dyspnea at rest or on exertion Cardiovascular: (+) chest pain, tightness, NO palpitations Abdomen: No pain, nausea, vomiting, diarrhea or constipation Musculoskeletal: (+) chronic back and hip joint pain, NO calf pain, swelling Neurologic: (+) balance problems, No weakness, numbness/tingling Psychiatric: No anxiety or depression Skin: No rash or itch Physical Exam Physical Exam: PHYSICAL EXAM: General: awake, alert, no apparent distress Head: Normocephalic, atraumatic ENT: PERRL, EOMI, no pharyngeal exudate, mucous membranes moist Neuro: AAO x 3, speech clear and appropriate, strength intact bilaterally 5/5, sensation intact and equal all extremities and dermatomes, no pronator drift Chest: equal rise and fall of the chest, tachypneic, prolonged inspiratory phase, no heaves or thrills, inspiratory wheezing bilaterally, on 1LNC Cardiac: Regular rate and rhythm, telemetry reviewed, skin warm dry, cap refill <3 seconds, peripheral pulses +2 no JVD, no murmur, no edema GI: NABS x 4 quadrants, soft, nontender to palpation, no rebound, guarding or t enderness : Spontaneously voiding, no pain, no CVA tenderness, Extremities: Normal inspection, no peripheral edema or erythema, calfs nontender to palpation Psych: anxious Skin: no rash or erythema Results & Data Results & Data ([facility]) Vital Signs (Past 12 Hours) Vital Signs Temp Pulse Pulse Resp BP BP Pulse Ox 02/18/21 18:00 58 L 26 H 121/68 98 02/18/21 17:53 52 L 18 98 02/18/21 17:36 53 L 13 126/69 98 02/18/21 17:00 58 L 18 103/64 99 02/18/21 16:30 64 23 110/73 98 02/18/21 16:00 56 L 14 106/75 100 02/18/21 15:55 58 L 24 96 02/18/21 15:32 55 L 18 106/56 L 95 02/18/21 13:35 37.0 C 90 18 116/72 97 Laboratory Results Abnormal Labs 02/18/21 02/18/21 02/18/21 15:31 15:31 15:31 RBC 4.68 L RDW Std Deviation 54.1 H RDW Coeff of Ligia 15.4 H Lymph # (Auto) 0.70 L [place] # (Auto) 0.69 H Immature Gran # (Auto) 0.08 H INR 1.2 H VBG pH Chloride 109 H Glucose 100 H 02/18/21 15:31 RBC RDW Std Deviation RDW Coeff of Ligia Lymph # (Auto) [place] # (Auto) Immature Gran # (Auto) INR VBG pH 7.44 H Chloride Glucose Diagnostic Findings Chest X-Ray 02/18/21 15:23 XR chest 2V PA/lateral HISTORY: 45 years-old Male sob acute shortness of breath COMPARISON: Acute abdominal series radiographs 12/17/2020 TECHNIQUE: PA and lateral views of the chest FINDINGS: Cardiac silhouette is enlarged. Chronic interstitial coarsening. No pneumothorax, pleural effusion, airspace consolidation or overt pulmonary edema. Degenerative changes of the shoulders and spine. Numerous thoracic compression deformities. IMPRESSION: Cardiomegaly with chronic interstitial coarsening. ACT 112: Negative or not required by law. The above report was generated using voice recognition software. It may contain grammatical, syntax or spelling errors. Electronically signed by: Avery Moody M.D. 02/18/2021 4:48 PM Chest CTA 02/18/21 17:13 CT angio chest PE protocol CT DOSE: 382.18 mGy.cm HISTORY: 45 years-old Male with sob hx bronchiectassi. Acute on chronic shortness of breath TECHNIQUE: Multiple CTA images of the chest were obtained after the intravenous administration of 120 ml Optiray. Coronal and sagittal MIPS were obtained from the axial data set and were submitted for review. All measurements were obtained according to NASCET criteria. A dose lowering technique was utilized adhering to the principles of ALARA. COMPARISON: Chest radiograph of same day, CTA chest 04/11/2020 FINDINGS: CTA: Moderate cardiomegaly. No pericardial effusion. Coronary artery calcifications. There is no thoracic aortic aneurysm. Descending thoracic aortic tortuosity. Dilation of the main pulmonary artery measures up to 3.6 cm, possibly representing pulmonary artery hypertension. No pulmonary emboli identified. CT CHEST: No thyroid nodule or adenopathy. No pneumothorax, pleural effusion, airspace consolidation or overt pulmonary edema. Mild pleural thickening of the lung apices. Cylindrical bibasilar bronchiectasis redemonstrated along with linear areas of subsegmental atelectasis/fibrosis. No suspicious pulmonary nodules or masses. The central airways are patent. No acute process of the imaged upper abdomen. Mild nonspecific distal esophageal wall thickening. No acute fracture. Pectus excavatum. Degenerative changes of the shoulders and spine. Chronic appearing lower thoracic compression deformity. Dextroscoliosis of the thoracolumbar junction. IMPRESSION: 1. Cardiomegaly without pulmonary emboli 2. Bibasilar predominant cylindrical bronchiectasis with mild bibasilar atelectasis/scarring. 3. No adenopathy, pleural effusion or airspace consolidation to suggest pneumonia. 4. Pectus excavatum. ACT 112: Negative or not required by law. The above report was generated using voice recognition software. It may contain grammatical, syntax or spelling errors. Electronically signed by: Avery Moody M.D. 02/18/2021 5:53 PM Medications Administered Home Medications azelastine 137 mcg (0.1 %) nasal spray aerosol 1 spray INTRANASAL QAM 09/05/18 [History Confirmed 02/18/21] calcium carbonate 600 mg (1,500 mg)-vitamin D3 400 unit tablet (Calcium 600 + D(3)) 1 tab PO BID 09/05/18 [History Confirmed 02/18/21] multivitamin 1 tab PO QAM 09/05/18 [History Confirmed 02/18/21] denosumab 60 mg/mL subcutaneous syringe (Prolia) 60 mg SUBCUT Q6M 10/10/18 [History Confirmed 02/18/21] diclofenac sodium 1 % topical gel 4 g TOPICAL BID PRN 01/13/19 [History Confirmed 02/18/21] ascorbic acid (vitamin C) 500 mg tablet 1,000 mg PO QAM tab 03/27/19 [History Confirmed 02/18/21] cholecalciferol (vitamin D3) 50 mcg (2,000 unit) capsule 2,000 units PO QAM cap 03/27/19 [History Confirmed 02/18/21] fexofenadine 180 mg tablet (Dilma Allergy) 180 mg PO QAM 03/27/19 [History Confirmed 02/18/21] omega-3 fatty acids 1,000 mg capsule (Fish Oil Concentrate) 1,000 mg PO QAM 04/13/19 [History Confirmed 02/18/21] epinephrine 0.3 mg/0.3 mL injection, auto-injector (EpiPen 2-Dustin) 0.3 mg IM Q15M PRN 09/17/19 [History Confirmed 02/18/21] levalbuterol tartrate 45 mcg/actuation aerosol inhaler 2 puffs INHALATION Q4H PRN #45 gm 02/28/20 [Rx Confirmed 02/18/21] polysaccharide iron complex 150 mg iron capsule (Ferrex) 150 mg PO QAM #90 cap 06/24/20 [Rx Confirmed 02/18/21] levothyroxine 25 mcg tablet 25 mcg PO QAM #90 tab 07/09/20 [Rx Confirmed 02/18/21] ofloxacin 0.3 % ear drops 5 drp OTIC (EAR) BID 10 Days #5 ml 08/18/20 [Rx Confirmed 02/18/21] diltiazem HCl 60 mg tablet 60 mg PO HS #90 tab 09/10/20 [Rx Confirmed 02/18/21] escitalopram oxalate 10 mg tablet 10 mg PO QAM 09/11/20 [History Confirmed 02/18/21] pantoprazole 40 mg tablet,delayed release 40 mg PO QAM #90 tab 09/25/20 [Rx Confirmed 02/18/21] montelukast 10 mg tablet (Singulair) 10 mg PO HS #90 tab 11/03/20 [Rx Confirmed 02/18/21] levalbuterol HCl 1.25 mg/3 mL solution for nebulization 1.25 mg INH Q4H #540 vial 12/11/20 [Rx Confirmed 02/18/21] fluticasone fur. 200 mcg-umeclid 62.5 mcg-vilant 25 mcg inhalat.powder (Trelegy Ellipta) 1 inh INHALATION QAM #3 inhaler 12/30/20 [Rx Confirmed 02/18/21] linaclotide 290 mcg capsule (Linzess) 290 mcg PO DAILY #90 cap 12/31/20 [Rx Confirmed 02/18/21] acetylcysteine 100 mg/mL (10 %) solution 2 ml INH QAM #90 ml 01/13/21 [Rx Confirmed 02/18/21] rivaroxaban 20 mg tablet (Xarelto) 20 mg PO QAM #90 tab 01/13/21 [Rx Confirmed 02/18/21] clonazepam 0.5 mg tablet (Klonopin) 0.5 mg PO TID #180 tab 01/15/21 [Rx Confirmed 02/18/21] omalizumab 150 mg subcutaneous solution (Xolair) 150 mg SQ MONTHLY #1 ea 02/02/21 [Rx Confirmed 02/18/21] amoxicillin 500 mg tablet 2,000 mg PO UD PRN #4 tab 02/18/21 [Rx] prednisone 10 mg tablet See Rx Instructions PO DAILY #36 tab 02/18/21 [Rx] Discontinued Medications Albuterol (Albut/Ipratrop 3mg/0.5mg Neb 3 Ml Vial) 3 ml NEB NOW STA Stop: 02/18/21 15:23 Last Admin: 02/18/21 15:55 Dose: 3 ml Documented by: [id number] Albuterol (Albut/Ipratrop 3mg/0.5mg Neb 3 Ml Vial) 3 ml NEB NOW STA Stop: 02/18/21 17:10 Last Admin: 02/18/21 17:51 Dose: 3 ml Documented by: [id number] Lorazepam (Ativan) 0.5 mg in 1 mls @ 1 mls/min IV NOW STA Stop: 02/18/21 15:23 Last Admin: 02/18/21 15:53 Dose: 1 mls/min Documented by: [id number] Ioversol (Optiray 320 125ml) 120 ml IV ONCE ONE Stop: 02/18/21 17:34 Last Admin: 02/18/21 17:34 Dose: 120 ml Documented by: [id number] Methylprednisolone (Methylprednisolone 125 Mg/2 Ml Vial) 125 mg IV NOW STA Stop: 02/18/21 15:23 Last Admin: 02/18/21 15:53 Dose: 125 mg Documented by: [id number] ECG Additional Comments: Normal sinus rhythm Normal ECG When compared with ECG of 17-NOV-2020 13:55, Non-specific change in ST segment in Inferior lead Code Status & VTE Plan Code Status CODE: FULL VTE: SCD's, Xarelto VTE Prophylaxis Plan VTE Prophylaxis will be ordered: Yes Supervising Physician Co-Signing Physician Notes Patient seen and examined at bedside. Obtained history and physical examination during face to face encounter with patient. I reviewed above note and agree with it. Discussed plan with CRYSTAL Ndiaye. I answered all of the patients questions. Patient will be admitted for COPD exacerbation. Patient will continue on steroids and placed on azithromycin. PG Care Time/CCT Total # of Minutes Spent Total Time Spent with Patient: Total time spent is greater than 50% in coordination of care (as documented) at patient's floor/unit and/or counseling patient: Coding Level of Care Code INT OBSERVATION CARE 70M LVL 3 Diagnoses COPD exacerbation J44.1 Bronchiectasis J47.1 Bronchiectasis type: with acute exacerbation Anxiety F41.9 Abnormal EKG R94.31 Vocal cord dysfunction J38.3 Degenerative joint disease (DJD) of hip M16.9 GERD (gastroesophageal reflux disease) K21.9 Osteoporosis M81.0 (1) Bronchiectasis Bronchiectasis type: with acute exacerbation Qualified Code(s): J47.1 - Bronchiectasis with (acute) exacerbation
[2021-02-18] MEDS ORDERED: AZITHROMYCIN 250 MG TAB PO ONE (21:39)
[2021-02-18] MEDS ORDERED: LEVALBUTEROL TARTRATE 15 GM HFA.AER.AD INH PRN (21:39)
[2021-02-18] MEDS ORDERED: ONDANSETRON INJ 2 MG/ML 2 ML VIAL IV PRN (21:39)
[2021-02-18] MEDS ORDERED: ACETAMINOPHEN 325 MG TAB PO PRN (21:39)
[2021-02-18] MEDS ORDERED: HEPARIN SOD 5,000 UNIT/0.5 ML VIAL SQ SCH (22:00)
[2021-02-18] MEDS: dilTIAZem HCl 60 MG TAB PO SCH (22:31)
[2021-02-18] MEDS: CALCIUM 600MG + VIT D 400 IU TAB PO SCH (22:31)
[2021-02-18] MEDS: methylPREDNISolone 40 MG in SYRINGE 0 ML IV SCH (22:32)
[2021-02-18] MEDS: MONTELUKAST SODIUM 10 MG TABLET PO SCH (22:32)
[2021-02-18] MEDS: clonazePAM 0.5 MG TAB PO SCH (22:36)
[2021-02-18] MEDS: LEVALBUTEROL HCL 1.25 MG/3 ML NEB INH SCH ×2 (22:51)
[2021-02-19] MEDS: LEVALBUTEROL HCL 1.25 MG/3 ML NEB INH SCH ×7 (03:08→22:27)
[2021-02-19] MEDS: methylPREDNISolone 40 MG in SYRINGE 0 ML IV SCH ×4 (04:45→22:39)
[2021-02-19] MEDS: LEVOTHYROXINE SODIUM 25 MCG TABLET PO SCH (05:47)
[2021-02-19 08:13] LABS: Hematocrit (blood only) 43.5 % (42-52); Hemoglobin 14.5 g/dL (14.0-18.0); Immature Granulocytes # (auto) 0.09 K/uL (0.00-0.02); Immature Granulocytes % (auto) 1.4 %; Lymphocytes # (auto) 0.45 K/uL (1.2-3.4); Mean Corpuscular Hemoglobin 30.9 pg (25-34); Mean Corpuscular Hgb Conc 33.3 g/dL (32-36); Mean Corpuscular Volume 92.8 fL (80-100); Mean Platelet Volume 10.2 fL (7.4-10.4); Monocytes # (auto) 0.13 K/uL (0.11-0.59); Neutrophils # (auto) 5.74 K/uL (1.4-6.5); Neutrophils % (auto) 89.6 %; Platelet Count 165 K/uL (130-400); RDW Coefficient of Variation 15.1 % (11.5-14.5); RDW Standard Deviation 51.5 fL (36.4-46.3); Red Blood Count 4.69 M/uL (4.7-6.1); White Blood Count 6.41 K/uL (4.8-10.8)
[2021-02-19] MEDS: LINACLOTIDE 145 MCG CAPSULE PO SCH (08:20)
[2021-02-19] MEDS: IRON POLYSACCHARIDE COMPLEX 150 MG CAPSULE PO SCH (08:20)
[2021-02-19] MEDS: guaiFENesin 600 MG TABCR PO SCH ×2 (08:20→20:04)
[2021-02-19] MEDS: ASCORBIC ACID 500 MG TAB PO SCH (08:20)
[2021-02-19] MEDS: CHOLECALCIFEROL 1,000 UNITS 25 MCG TAB PO SCH (08:20)
[2021-02-19] MEDS: CALCIUM 600MG + VIT D 400 IU TAB PO SCH ×2 (08:20→20:03)
[2021-02-19] MEDS: clonazePAM 0.5 MG TAB PO SCH ×3 (08:20→20:03)
[2021-02-19] MEDS: PANTOprazole 40 MG TAB PO SCH (08:20)
[2021-02-19] MEDS: FEXOFENADINE HCL 180 MG TAB PO SCH (08:20)
[2021-02-19] MEDS: AZITHROMYCIN 250 MG TAB PO SCH (08:21)
[2021-02-19] MEDS: FLUTICASONE FUROATE 200MCG 14 PUFFS/INHALER INH SCH (08:26)
[2021-02-19] MEDS: UMECLIDINIUM/VILANTEROL 62.5/25MCG 7 PUFFS/INHALER INH SCH (08:26)
[2021-02-19 08:44] LABS: BUN Creatinine Ratio 20.1 (10-20); Calcium 8.3 mg/dl (8.5-10.1); Creatinine Clr Calc Pharmacy 128.9 ml/min; Est GFR (African American) 128.9 ml/min; Est GFR (Non-African American) 111.2 ml/min; Magnesium 2.2 mg/dl (1.8-2.4); Potassium 3.4 mmol/L (3.5-5.1)
[2021-02-19] MEDS ORDERED: NON-FORMULARY MEDICATION (Fluticasone-Umeclidin-Vilanter [Trelegy Ellipta] 200-62.5-25 mcg INH SCH (09:00)
[2021-02-19] MEDS ORDERED: cefTRIAXone SODIUM 1,000 MG in DEXTROSE 5% 50 ML IV SCH (16:00)
--- NOTE | 2021-02-19 16:53 | Electrocardiogram Report ---
Test Reason : Blood Pressure : / mmHG Vent. Rate : 093 BPM Atrial Rate : 093 BPM P-R Int : 158 ms QRS Dur : 092 ms QT Int : 356 ms P-R-T Axes : 042 -02 037 degrees QTc Int : 442 ms Poor data quality, interpretation may be adversely affected Normal sinus rhythm T wave abnormality, consider anterior ischemia Incomplete right bundle branch block Abnormal ECG When compared with ECG of 18-FEB-2021 15:21, Vent. rate has increased BY 32 BPM T wave inversion now evident in Anterior leads QT has lengthened Confirmed by Barrington Sher ([id number]) on 02/19/2021 4:52:59 PM Referred By: REFERRED SELF Confirmed By:Meliton Sher
[2021-02-19] MEDS: RIVAROXABAN 20 MG TAB PO SCH (17:05)
[2021-02-19] MEDS: LIDOCAINE 5% 1 PATCH TD SCH (17:39)
[2021-02-19] MEDS ORDERED: MoRPHine SULFATE 2 MG/ML CARP IV STA (17:57)
[2021-02-19] MEDS: dilTIAZem HCl 60 MG TAB PO SCH (20:00)
[2021-02-19] MEDS: MONTELUKAST SODIUM 10 MG TABLET PO SCH (20:04)
[2021-02-19] MEDS: MoRPHine SULFATE 2 MG/ML CARP IV PRN (20:05)
--- NOTE | 2021-02-19 21:09 | Hospitalist Progress Note ---
Date of Service February 19, 2021 Assessment & Plan (1) COPD exacerbation: Plan: Patient has Chronic bronchiectasis At home, patient had Increase use of inhalers, increase cough, increase oxygen use. - No significant improvement today. -Patient is requesting input from pulmonary as he feels he is getting worse and is wondering if he is at the end. -Patient continues to have Non productive cough and Inspiratory wheezing bilateral - Nebs q4 - HFA q2 prn in between - Methylpred 40 q6 IV -Added ceftriaxone. - Azithromycin 500 mg PO then 250mg - Continue montelukast - Flutter valve - BiPAP at night as tolerated - CT scan negative for PE (2) Bronchiectasis: Plan: As above (3) Anxiety: Plan: Continue Klonopin 0.5mg daily - can give another dose tonight if needed for BiPAP or breathlessness (4) Abnormal EKG: Plan: Patient with history of non-specific t wave changes - normal stress ECHO in 2019 - done for dyspnea and t wave changes -will check EKG. ordered morphine for chest pain. (5) Vocal cord dysfunction: Plan: As above- anxiety, positive pressure, flutter valve, nebulizers (6) Degenerative joint disease (DJD) of hip: Plan: No acute need - continue calcium carb and vitamin D (7) GERD (gastroesophageal reflux disease): Plan: Continue omeprazole (8) Osteoporosis: Plan: As above for DJD Admission and Anticipated Discharge Date Admission Date: February 18, 2021 Subjective Patient reports he continues to feel very short of breath. He is also complaining of chest pain which has isidoro ongoing for 30 mintues. He reports that he gets chest pain itermittently and that this pain is likely musculoskeletal. Review of Systems Review of Systems: All systems reviewed & are unremarkable except as noted in HPI & below Physical Exam Physical Exam: PHYSICAL EXAM: General: awake, alert, no apparent distress Head: Normocephalic, atraumatic ENT: PERRL, EOMI, no pharyngeal exudate, mucous membranes moist Neuro: AAO x 3, speech clear and appropriate, strength intact bilaterally 5/5, sensation intact and equal all extremities and dermatomes, no pronator drift Chest: equal rise and fall of the chest, tachypneic, prolonged inspiratory phase, no heaves or thrills, inspiratory wheezing bilaterally Pain on palpation on left chest. Cardiac: Regular rate and rhythm, telemetry reviewed, skin warm dry, cap refill <3 seconds, peripheral pulses +2 no JVD, no murmur, no edema GI: NABS x 4 quadrants, soft, nontender to palpation, no rebound, guarding or tenderness : Spontaneously voiding, no pain, no CVA tenderness, Extremities: Normal inspection, no peripheral edema or erythema, calfs nontender to palpation Psych: anxious Skin: no rash or erythema Results & Data Results & Data ([facility]) Vital Signs (Past 12 Hours) Vital Signs Temp Pulse Resp BP Pulse Ox 02/19/21 19:34 36.7 C 94 H 18 134/62 94 02/19/21 19:24 87 20 98 02/19/21 15:28 37 C 88 22 114/67 95 02/19/21 15:01 92 H 20 96 02/19/21 10:50 81 18 95 PG Care Time/CCT Total # of Minutes Spent Total Time Spent with Patient: Total time spent is greater than 50% in coordination of care (as documented) at patient's floor/unit and/or counseling patient: Coding Level of Care Code 39135 Subseq Hosp Care Lvl 3 Diagnoses COPD exacerbation J44.1 Bronchiectasis J47.1 Bronchiectasis type: with acute exacerbation Anxiety F41.9 Abnormal EKG R94.31 Vocal cord dysfunction J38.3 Degenerative joint disease (DJD) of hip M16.9 GERD (gastroesophageal reflux disease) K21.9 Osteoporosis M81.0 Time Spent (min) 35 Comment updated . (1) Bronchiectasis Bronchiectasis type: with acute exacerbation Qualified Code(s): J47.1 - Bronchiectasis with (acute) exacerbation
[2021-02-20] MEDS: LEVALBUTEROL HCL 1.25 MG/3 ML NEB INH SCH ×4 (04:00→14:41)
[2021-02-20] MEDS: methylPREDNISolone 40 MG in SYRINGE 0 ML IV SCH (04:04)
[2021-02-20] MEDS: MoRPHine SULFATE 2 MG/ML CARP IV PRN ×2 (05:20→13:56)
[2021-02-20] MEDS: LEVOTHYROXINE SODIUM 25 MCG TABLET PO SCH (06:40)
[2021-02-20] MEDS: clonazePAM 0.5 MG TAB PO SCH ×2 (07:49→13:48)
[2021-02-20] MEDS: FEXOFENADINE HCL 180 MG TAB PO SCH (07:49)
[2021-02-20] MEDS: FLUTICASONE FUROATE 200MCG 14 PUFFS/INHALER INH SCH (07:49)
[2021-02-20] MEDS: PANTOprazole 40 MG TAB PO SCH (07:49)
[2021-02-20] MEDS: CALCIUM 600MG + VIT D 400 IU TAB PO SCH (07:49)
[2021-02-20] MEDS: guaiFENesin 600 MG TABCR PO SCH (07:49)
[2021-02-20] MEDS: CHOLECALCIFEROL 1,000 UNITS 25 MCG TAB PO SCH (07:49)
[2021-02-20] MEDS: LINACLOTIDE 145 MCG CAPSULE PO SCH (07:49)
[2021-02-20] MEDS: ASCORBIC ACID 500 MG TAB PO SCH (07:49)
[2021-02-20] MEDS: IRON POLYSACCHARIDE COMPLEX 150 MG CAPSULE PO SCH (07:49)
[2021-02-20] MEDS: UMECLIDINIUM/VILANTEROL 62.5/25MCG 7 PUFFS/INHALER INH SCH (07:50)
[2021-02-20] MEDS: LIDOCAINE 5% 1 PATCH TD SCH (07:50)
[2021-02-20] MEDS: AZITHROMYCIN 250 MG TAB PO SCH (07:50)
[2021-02-20 08:40] LABS: Basophils # (auto) 0.01 K/uL (0-0.2); Basophils % (auto) 0.1 %; Hematocrit (blood only) 44.5 % (42-52); Hemoglobin 14.6 g/dL (14.0-18.0); Immature Granulocytes # (auto) 0.08 K/uL (0.00-0.02); Lymphocytes # (auto) 0.62 K/uL (1.2-3.4); Lymphocytes % (auto) 7.5 %; Mean Corpuscular Hemoglobin 31.3 pg (25-34); Mean Corpuscular Hgb Conc 32.8 g/dL (32-36); Mean Corpuscular Volume 95.3 fL (80-100); Mean Platelet Volume 10.3 fL (7.4-10.4); Monocytes # (auto) 0.38 K/uL (0.11-0.59); Monocytes % (auto) 4.6 %; Neutrophils # (auto) 7.21 K/uL (1.4-6.5); Neutrophils % (auto) 86.8 %; Platelet Count 166 K/uL (130-400); RDW Coefficient of Variation 15.2 % (11.5-14.5); RDW Standard Deviation 52.9 fL (36.4-46.3); Red Blood Count 4.67 M/uL (4.7-6.1)
--- NOTE | 2021-02-20 09:02 | Pulmonary Consultation ---
Date of Consultation February 20, 2021 Assessment & Plan (1) Bronchiectasis: Impression: 45-year-old male with multiple medical issues admitted with shortness of breath. He is not wheezing in his lungs rounds are actually relatively clear. Given the fact that he is not wheezing and has not responded to bronchodilators steroids and antibiotics makes me think that his etiology for shortness of breath is not COPD although it certainly a factor. I suspect it may be more likely related to the patient's known history of vocal cord dysfunction. He also has multiple other pulmonary comorbidities including PE, asthma, restrictive lung disease due to pectus excavatum and sleep disordered breathing. Recommendations: 1. Dyspnea: The patient asked about whether or not he can go home at this point time. I do not think we are really doing anything from the hospital standpoint. I do not think steroids and antibiotics are the solution to his dyspnea. He appears to be stable from a respiratory standpoint and can be dismissed from the hospital from a pulmonary standpoint as long as the patient feels comfortable and outpatient follow-up is set up with his providers as noted below. 2. Vocal cord dysfunction: Patient's been evaluated for this in the past. I would recommend that he reengage with otolaryngology, perhaps at [facility] to consider Botox injections or other potential interventions for his VCD. He apparently has been seen by speech therapy in the past but did not have a sig nificant clinical response. In refractory cases, tracheostomy may be considered but would only consider that after we had failed all other noninvasive interventions. 3. Asthma: This does not appear to be an asthma exacerbation. No indication for steroids currently. He should follow-up with Dr. Landrum in the outpatient setting and continue his Xolair. Outpatient assessment of exhaled nitric oxide may be beneficial. The patient has not manifested eosinophilia during his hospitalization. IgE levels were not checked. No indication for steroids at this point time so these will be discontinued. Also do not see an infectious etiology so we will discontinue Rocephin. 4. History of pulmonary embolism: Continue anticoagulation. 5. Restrictive lung disease due to chest wall abnormalities. Will check MIP/MEP/MVV as well as spirometry today. He can continue noninvasive positive pressure ventilation at night. 6. Bronchiectasis: The patient does not appear to be suffering an exacerbation of his bronchiectasis. No indication for antimicrobial agents currently. Continue pulmonary toilet. 7. At a long extensive discussion with the patient at bedside. While he has a multitude of medical issues and specifically pulmonary issues, I do not think that we have exhausted all efforts at optimizing his care medically and would not recommend transition to hospice or palliative care at this point time. From a pulmonary standpoint the patient can be dismissed from the hospital with outpatient follow-up with his pulmonary providers. Again would strongly recommend completing evaluation as noted above. Feel free to contact us if we can be of additional assistance. Bronchiectasis type: with acute exacerbation Qualified Code(s): J47.1 - Bronchiectasis with (acute) exacerbation (2) History of COPD: (3) Dyspnea: (4) Vocal cord dysfunction: History of Present Illness Attending Physician: Carlitos Matamoros History of Present Illness Asked by hospitalist to evaluate this patient with multiple respiratory issues admitted with questionable COPD exacerbation. History is obtained from discussion with the patient as well as review of the electronic medical record. The patient is a complicated 45-year-old male who is been followed by Dr. Morrissey and ALANNAH Roger in the pulmonary clinic for an extended period of time. He has a history of COPD/asthma, bronchiectasis, pectus excavatum, pulmonary embolism, chronic hypoxemic respiratory failure, hypogammaglobulinemia, and significant vocal cord dysfunction. Patient was admitted to this facility 02/18/2021 with persistent shortness of breath. He been using nebulizers every 4 hours at home as well as BiPAP which w ere not helpful. Has been on steroids in the past which were not particularly helpful either. He is fully anticoagulated on Xarelto. He was evaluated in the emergency room and admitted with a diagnosis of COPD exacerbation during hospitalization he has been treated with steroids bronchodilators antibiotics noninvasive positive pressure ventilation all of which have not been particularly helpful in improving any of his respiratory symptoms. He continues to feel short of breath. He did have a blood gas obtained which did not show any significant hypercarbic respiratory failure. He just feels like he cannot breathe then and is actually asking whether or not this is the "end of line for him". The patient does not report fevers chills or night sweats. He is not wheezing particularly. He is not coughing up any significant phlegm. He is followed by Dr. Landrum in the outpatient setting and is on Xolair for his asthma. Allergies Allergy/AdvReac Type Severity Reaction Status Date / Time gluten Allergy Mild STOMACH Verified 02/18/21 10:34 ISSUES Cipro AdvReac Intermediate issue with Verified 08/19/17 14:34 legs ciprofloxacin AdvReac Intermediate issue with Verified 02/18/21 10:34 legs oxycodone AdvReac Mild GI upset Verified 02/18/21 10:34 Home Medications Medication Instructions Recorded Confirmed Type azelastine 137 mcg (0.1 %) nasal 1 spray INTRANASAL QAM 09/05/18 02/18/21 History spray aerosol calcium carbonate 600 mg (1,500 1 tab PO BID 09/05/18 02/18/21 History mg)-vitamin D3 400 unit tablet (Calcium 600 + D(3)) multivitamin 1 tab PO QAM 09/05/18 02/18/21 History denosumab 60 mg/mL subcutaneous 60 mg SUBCUT Q6M 10/10/18 02/18/21 History syringe (Prolia) diclofenac sodium 1 % topical gel 4 g TOPICAL BID PRN 01/13/19 02/18/21 History ascorbic acid (vitamin C) 500 mg 1,000 mg PO QAM tab 03/27/19 02/18/21 History tablet cholecalciferol (vitamin D3) 50 2,000 units PO QAM cap 03/27/19 02/18/21 History mcg (2,000 unit) capsule fexofenadine 180 mg tablet 180 mg PO QAM 03/27/19 02/18/21 History (Dilma Allergy) omega-3 fatty acids 1,000 mg 1,000 mg PO QAM 04/13/19 02/18/21 History capsule (Fish Oil Concentrate) epinephrine 0.3 mg/0.3 mL 0.3 mg IM Q15M PRN 09/17/19 02/18/21 History injection, auto-injector (EpiPen 2-Dustin) levalbuterol tartrate 45 2 puffs INHALATION Q4H PRN #45 gm 02/28/20 02/18/21 Rx mcg/actuation aerosol inhaler polysaccharide iron complex 150 mg 150 mg PO QAM #90 cap 06/24/20 02/18/21 Rx iron capsule (Ferrex) levothyroxine 25 mcg tablet 25 mcg PO QAM #90 tab 07/09/20 02/18/21 Rx ofloxacin 0.3 % ear drops 5 drp OTIC (EAR) BID 10 Days #5 ml 08/18/20 02/18/21 Rx diltiazem HCl 60 mg tablet 60 mg PO HS #90 tab 09/10/20 02/18/21 Rx escitalopram oxalate 10 mg tablet 10 mg PO QAM 09/11/20 02/18/21 History pantoprazole 40 mg tablet,delayed 40 mg PO QAM #90 tab 09/25/20 02/18/21 Rx release montelukast 10 mg tablet 10 mg PO HS #90 tab 11/03/20 02/18/21 Rx (Singulair) levalbuterol HCl 1.25 mg/3 mL 1.25 mg INH Q4H #540 vial 12/11/20 02/18/21 Rx solution for nebulization fluticasone fur. 200 mcg-umeclid 1 inh INHALATION QAM #3 inhaler 12/30/20 02/18/21 Rx 62.5 mcg-vilant 25 mcg inhalat.powder (Trelegy Ellipta) linaclotide 290 mcg capsule 290 mcg PO DAILY #90 cap 12/31/20 02/18/21 Rx (Linzess) acetylcysteine 100 mg/mL (10 %) 2 ml INH QAM #90 ml 01/13/21 02/18/21 Rx solution rivaroxaban 20 mg tablet (Xarelto) 20 mg PO QAM #90 tab 01/13/21 02/18/21 Rx clonazepam 0.5 mg tablet (Klonopin) 0.5 mg PO TID #180 tab 01/15/21 02/18/21 Rx omalizumab 150 mg subcutaneous 150 mg SQ MONTHLY #1 ea 02/02/21 02/18/21 Rx solution (Xolair) amoxicillin 500 mg tablet 2,000 mg PO UD PRN #4 tab 02/19/21 Rx Patient History Medical History Atrial tachycardia Bronchiectasis FOLLOWS WITH PULMONARY--multiple inhalers/nebulizer Chest pain Chronic reflux esophagitis Chronic rhinitis Degenerative joint disease (DJD) of hip Dextroscoliosis Dysfunction of both eustachian tubes GERD (gastroesophageal reflux disease) H/O lymphopenia Hearing deficit HEARING AIDS History of undescended testicle Hx of deep venous thrombosis 2016 Hx pulmonary embolism 2016 Hypothyroidism Long-term (current) use of anticoagulants, INR goal 2.5-3.5 xarelto daily Malaria Nausea and vomiting after administration of anesthetic agent On home oxygen therapy 2L via Bipap every night Osteoporosis Pectus excavatum Severe persistent asthma Steroid-induced avascular necrosis of hip Venous insufficiency Vitamin D deficiency Vocal cord dysfunction Surgical History History of bilateral cataract extraction History of bronchoscopy multiple History of cardiac cath (~04/15/20) 2019 @ [facility]--No stents placed History of colonoscopy 2020 History of ear surgery X4 History of placement of ear tubes left ear History of tooth extraction Hx of hemorrhoidectomy S/P total hip arthroplasty Right Family History Mother Osteoporosis Father Prostate cancer Coronary heart disease Unknown Prostate cancer Grandmother (Paternal) Family history of diabetes mellitus Other Allergies Asthma Cancer Diabetes Hearing loss Heart disease No family history of adverse response to anesthesia No family history of bleeding disorder Stroke Denies family history of Hypertension Social History Smoking Status: Never smoker Second Hand Exposure: No; Hx Alcohol Use: No Hx Substance Use: No Preferred Language: Sami Communication Ability: Effective Visual Impairment: No Limitations Hearing Ability: Use of Hearing Aid Broom Maker Required: No Beliefs That Will Affect Care: None marital status: Current Living Situation: Spouse Current Living Situation Comment: Lives with and 15yr old son current occupational status: employed and unemployed 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 I reviewed and have no additions or deletions. Physical Exam Constitutional: WD/WN, vitals as above well developed; no acute distress and not ill appearing Neck: trachea midline, no thyromegaly Respiratory: normal respiratory effort, lungs clear to auscultation Auscultation: no rales and no wheezes Patient has an oscillatory pattern of exhalation Cardiovascular: RRR, no murmur, no edema Chest (Breasts): Additional Comments: Significant pectus noted Gastrointestinal (Abdomen): normal bowel sounds, soft, nontender, no hepatosplenomegaly Musculoskeletal: Extremities: extremities normal to inspection Skin: no rashes, warm and dry Neurologic: Nonfocal exam Lymphatic: no cervical lymphadenopathy Results & Data Results & Data ([facility]) Vital Signs (Past 12 Hours) Vital Signs Temp Pulse Pulse Resp BP Pulse Ox 02/20/21 07:44 36.5 C 65 18 122/76 96 02/20/21 07:26 85 19 98 02/20/21 07:00 77 02/20/21 03:57 80 18 95 02/20/21 01:39 78 02/19/21 23:03 36.4 C L 90 20 101/76 94 02/19/21 21:44 79 18 96 Laboratory Results 02/20/21 07:49 02/18/21 15:31 VBG pH 7.44 H VBG pCO2 42 VBG pO2 20 VBG HCO3 28 VBG O2 Saturation < 60.0 VBG Base Excess 3.1 Diagnostic Findings Imaging was independently reviewed CT angiogram from 02/18/2021 demonstrated cardiomegaly. No filling defects concerning for PEs were identified. Basilar cylindrical bronchiectasis was noted without significant mucous plugging atelectasis or air space opacity. No adenopathy. Significant pectus again noted. Chest x-ray from 02/18/2021 showed only cardiomegaly without overt pulmonary edema or significant pleural effusions. Patient's pulmonary notes were extensively reviewed in the electronic medical record. A total of 30 minutes was spent in review these medical records. Last PFTs performed July 2019 showed an FEV1 of 2.43 L or 54% predicted with an FVC of 4.16 L or 73% predicted. No response to bronchodilators. Total lung capacity was 70% predicted with a DLCO of 81% predicted. PG Care Time/CCT Total # of Minutes Spent Total Time Spent with Patient: Total time spent is greater than 50% in coordination of care (as documented) at patient's floor/unit and/or counseling patient: Coding Level of Care Code 55150 Inpt Consult Level 5 Diagnoses Bronchiectasis J47.1 Bronchiectasis type: with acute exacerbation History of COPD Z87.09 Dyspnea R06.00 Vocal cord dysfunction J38.3
[2021-02-20 09:15] LABS: BUN Creatinine Ratio 29.5 (10-20); Blood Urea Nitrogen 23 mg/dl (7-18); Calcium 8.5 mg/dl (8.5-10.1); Carbon Dioxide 27 mmol/L (21-32); Chloride 106 mmol/L (98-107); Creatinine Clr Calc Pharmacy 123.9 ml/min; Est GFR (African American) 126.8 ml/min; Est GFR (Non-African American) 109.4 ml/min; Glucose 136 mg/dl (70-99); Magnesium 2.2 mg/dl (1.8-2.4); Potassium 3.6 mmol/L (3.5-5.1); Sodium 140 mmol/L (136-145)
[2021-02-20 09:20] LABS: Troponin I < 0.015 ng/ml (0-0.045)
--- NOTE | 2021-02-20 13:14 | Electrocardiogram Report ---
Test Reason : Blood Pressure : / mmHG Vent. Rate : 073 BPM Atrial Rate : 073 BPM P-R Int : 158 ms QRS Dur : 094 ms QT Int : 386 ms P-R-T Axes : 005 065 010 degrees QTc Int : 425 ms Normal sinus rhythm Cannot rule out Inferior infarct , age undetermined T wave abnormality, consider anterior ischemia Abnormal ECG When compared with ECG of 19-FEB-2021 15:15, Minimal criteria for Inferior infarct are now Present Non-specific change in ST segment in Inferior leads ST elevation now present in Lateral leads Confirmed by Barrington Sher ([id number]) on 02/20/2021 1:13:58 PM Referred By: REFERRED SELF Confirmed By:Meliton Sher
[2021-02-20] MEDS: RIVAROXABAN 20 MG TAB PO SCH (15:46)
--- NOTE | 2021-02-21 18:49 | Discharge Summary ---
Date of Service February 20, 2021 Admission HPI Per Admitting Provider 45 YOM with past medical history of VCD, pectus excavatum, bronchiectasis, anxiety, osteopetrosis, idiopathic polyneuropathy, avascular necrosis of hip, Grade I diastolic dysfunction with normal Stress ECHO Feb 20. Patient comes in today for 2 day history of increased shortness of breath and increase use of his nebulizers at home following going outside to a picnic this past weekend. He states he has been using his nebulizers every 4 hours at home and he tried to use his BiPAP last night without helping his dyspnea. He had a prescription called in for prednisone but he did not pick it up, he came to the ER first. patient states he has not missed a dose of his Xarelto. In the EMD he had a CTA of the chest performed that did not reveal a PE or acute pulmonary process. He received nebulizers with improvement in his oxygenation but not his breathlessness. He also received Ativan for anxiety and steroids. The patient feels like he still can't catch his breath, but is moving air well and is oxygenating well. He will be admitted to medical floor to follow his respiratory efforts and oxygenation. Principal Diagnosis Acute on chronic bronchiectasis Discharge Exam General: awake, alert, no apparent distress Head: Normocephalic, atraumatic ENT: PERRL, EOMI, no pharyngeal exudate, mucous membranes moist Neuro: AAO x 3, speech clear and appropriate, strength intact bilaterally 5/5, sensation intact and equal all extremities and dermatomes, no pronator drift Chest: equal rise and fall of the chest, tachypneic, prolonged inspiratory phase, no heaves or thrills, inspiratory wheezing bilaterally Pain on palpation on left chest. Cardiac: Regular rate and rhythm, telemetry reviewed, skin warm dry, cap refill <3 seconds, peripheral pulses +2 no JVD, no murmur, no edema GI: NABS x 4 quadrants, soft, nontender to palpation, no rebound, guarding or tenderness : Spontaneously voiding, no pain, no CVA tenderness, Extremities: Normal inspection, no peripheral edema or erythema, calfs nontender to palpation Psych: anxious Skin: no rash or erythema Discharge Data Allergies Allergy/AdvReac Type Severity Reaction Status Date / Time gluten Allergy Mild STOMACH Verified 02/18/21 10:34 ISSUES Cipro AdvReac Intermediate issue with Verified 08/19/17 14:34 legs ciprofloxacin AdvReac Intermediate issue with Verified 02/18/21 10:34 legs oxycodone AdvReac Mild GI upset Verified 02/18/21 10:34 Consultations 02/18/21 17:58 ED Decision to Admit Stat 02/19/21 15:29 Consult Pulmonology Routine Ordered Studies 02/18/21 17:13 CT angio chest PE protocol Stat Hospital Course (1) COPD exacerbation: Patient has Chronic bronchiectasis At home, patient had Increase use of inhalers, increase cough, increase oxygen use. - No significant improvement today. -Patient is requesting input from pulmonary as he feels he is getting worse and is wondering if he is at the end. -Patient continues to have Non productive cough and Inspiratory wheezing bilateral - Nebs q4 - HFA q2 prn in between - Methylpred 40 q6 IV -Added ceftriaxone. - Azithromycin 500 mg PO then 250mg - Continue montelukast - Flutter valve - BiPAP at night as tolerated - CT scan negative for PE On day of discharge: patient was off oxygen. Patient appeared more comfortable. Patient had discussion with piulmonary and feels that he is back to his baseline and is requesting to be discharged. Patient reports he is not interested in botox injections as he had discussed with an ENT in the past, and it appears it was not recommended. Pulmonary input below: 1. Dyspnea: The patient asked about whether or not he can go home at this point time. I do not think we are really doing anything from the hospital standpoint. I do not think steroids and antibiotics are the solution to his dyspnea. He appears to be stable from a respiratory standpoint and can be dismissed from the hospital from a pulmonary standpoint as long as the patient feels comfortable and outpatient follow-up is set up with his providers as noted below. 2. Vocal cord dysfunction: Patient's been evaluated for this in the past. I would recommend that he reengage with otolaryngology, perhaps at [facility] to consider Botox injections or other potential interventions for his VCD. He apparently has been seen by speech therapy in the past but did not have a significant clinical response. In refractory cases, tracheostomy may be considered but would only consider that after we had failed all other noninvasive interventions. 3. Asthma: This does not appear to be an asthma exacerbation. No indication for steroids currently. He should follow-up with Dr. Landrum in the outpatient setting and continue his Xolair. Outpatient assessment of exhaled nitric oxide may be beneficial. The patient has not manifested eosinophilia during his hospitalization. IgE levels were not checked. No indication for steroids at this point time so these will be discontinued. Also do not see an infectious etiology so we will discontinue Rocephin. 4. History of pulmonary embolism: Continue anticoagulation. 5. Restrictive lung disease due to chest wall abnormalities. Will check MIP/MEP/MVV as well as spirometry today. He can continue noninvasive positive pressure ventilation at night. 6. Bronchiectasis: The patient does not appear to be suffering an exacerbation of his bronchiectasis. No indication for antimicrobial agents currently. Continue pulmonary toilet. 7. At a long extensive discussion with the patient at bedside. While he has a multitude of medical issues and specifically pulmonary issues, I do not think that we have exhausted all efforts at optimizing his care medically and would not recommend transition to hospice or palliative care at this point time. From a pulmonary standpoint the patient can be dismissed from the hospital with outpatient follow-up with his pulmonary providers. Again would strongly recommend completing evaluation as noted above. (2) Bronchiectasis: As above (3) Anxiety: Continue Klonopin 0.5mg daily - can give another dose tonight if needed for BiPAP or breathlessness (4) Abnormal EKG: Patient with history of non-specific t wave changes - normal stress ECHO in 2019 - done for dyspnea and t wave changes -will check EKG. ordered morphine for chest pain. (5) Vocal cord dysfunction: As above- anxiety, positive pressure, flutter valve, nebulizers (6) Degenerative joint disease (DJD) of hip: No acute need - continue calcium carb and vitamin D (7) GERD (gastroesophageal reflux disease): Continue omeprazole (8) Osteoporosis: As above for DJD Total Time Total Time Spent Total Time Spent (In Minutes): 32 Discharge Plan Discharge Items Patient Disposition: Home - Self-Care Reason For Visit: COPD EXACERBATION Discharge Diagnosis: COPD exacerbation Activity: Resume your previous activity Non-emergency contact: Primary Care Provider Call non-emergency contact if: you have any medication questions Follow-up/Referrals: Jefe Adorno MD [Primary Care Provider] - Diet: Gluten Free and Lactose Intolerant Addtl Attending Provider Instructions: You have been hospitalized for an acute medical problem. During your stay at [facility], we have made an effort to correct the problem that brought you to the hospital while keeping you as comfortable as possible. Medications were used to bring your condition under control and your discharge instructions will include directions for any medications you should take after leaving the hospital. Please make sure you see your Primary Care Provider as part of your follow up plan. Pending Studies at Discharge: No Stand-Alone Forms: My [facility], Smoking Cessation Medications and DC Order Prescriptions: Continued levalbuterol tartrate 45 mcg/actuation HFA aerosol inhaler 2 puffs INHALATION Q4H PRN (Reason: Shortness Of Breath Or Wheezing) Qty: 45 RF: 1 polysaccharide iron complex [Ferrex 150] 150 mg iron capsule 150 mg PO QAM Qty: 90 RF: 3 levothyroxine 25 mcg tablet 25 mcg PO QAM Qty: 90 RF: 3 ofloxacin 0.3 % drops 5 drp otic (ear) BID 10 Days Qty: 5 RF: 8 diltiazem HCl 60 mg tablet 60 mg PO HS Qty: 90 RF: 1 montelukast [Singulair] 10 mg tablet 10 mg PO HS Qty: 90 RF: 1 levalbuterol HCl 1.25 mg/3 mL solution for nebulization 1.25 mg INH Q4H Qty: 540 RF: 1 Trelegy Ellipta 200-62.5-25 mcg blister with device 1 inh inhalation QAM Qty: 3 RF: 1 Linzess 290 mcg capsule 290 mcg PO DAILY Qty: 90 RF: 3 acetylcysteine 100 mg/mL (10 %) solution 2 ml INH QAM Qty: 90 RF: 3 Xarelto 20 mg tablet 20 mg PO QAM Qty: 90 RF: 1 clonazepam [Klonopin] 0.5 mg tablet 0.5 mg PO TID Qty: 180 RF: 0 Xolair 150 mg recon soln 150 mg SQ MONTHLY Qty: 1 RF: 11 amoxicillin 500 mg tablet 2,000 mg PO UD PRN (Reason: prior to procedures) Qty: 4 RF: 3 ascorbic acid (vitamin C) 500 mg tablet 1,000 mg PO QAM RF: 0 cholecalciferol (vitamin D3) 2,000 unit capsule 2,000 units PO QAM RF: 0 omega-3 fatty acids [Fish Oil Concentrate] 1,000 mg capsule 1,000 mg PO QAM RF: 0 pantoprazole 40 mg tablet,delayed release (DR/EC) 40 mg PO QAM Qty: 90 RF: 1 multivitamin Tablet 1 tab PO QAM RF: 0 azelastine 137 mcg (0.1 %) aerosol,spray 1 spray Intranasal QAM RF: 0 calcium carbonate-vitamin D3 [Calcium 600 + D(3)] 600 mg(1,500mg) -400 unit Tablet 1 tab PO BID RF: 0 fexofenadine [Dilma Allergy] 180 mg tablet 180 mg PO QAM RF: 0 epinephrine [EpiPen 2-Dustin] 0.3 mg/0.3 mL auto-injector 0.3 mg IM Q15M PRN (Reason: Anaphylaxis) RF: 0 escitalopram oxalate 10 mg tablet 10 mg PO QAM RF: 0 Prolia 60 mg/mL Syringe 60 mg subcut Q6M RF: 0 diclofenac sodium 1 % Gel 4 g TOPICAL BID PRN (Reason: Pain) RF: 0 Discharge Orders: Discharge Order (Routine); Ordered 02/20/21 Ordered By: Carlitos Matamoros Admission Data Admit Date/Time: 02/19/21 15:28 Attending Provider: Carlitos Matamoros Admit Provider: Peng Ndiaye Primary Care Provider: Jefe Adorno Other Providers: Carlitos Matamoros ; Fermín [place] Other Interventions: Discharge Summary Assessment (RN) Last Done: 02/20/21 17:50 Coding Level of Care Code D/C DAY MANAGEMENT >30 MINS Diagnoses COPD exacerbation J44.1 Bronchiectasis J47.1 Bronchiectasis type: with acute exacerbation Anxiety F41.9 Abnormal EKG R94.31 Vocal cord dysfunction J38.3 Degenerative joint disease (DJD) of hip M16.9 GERD (gastroesophageal reflux disease) K21.9 Osteoporosis M81.0 Time Spent (min) 32
== END 2021-02-20 18:40 | disposition home or self-care (01) ==
LOC: 2W 13:31 → ED 13:31 → SUATTDRO 19:36 → 2W 21:14

== ENCOUNTER 2021-10-07 06:16 | Observation (INO) ==
--- NOTE | 2021-10-01 15:51 | PAT Medication Instructions ---
Medication Instructions Date of Service October 01, 2021 Home Medications Medication Instructions Recorded levalbuterol tartrate 45 2 puffs INHALATION Q4H PRN #45 gm 02/28/20 mcg/actuation aerosol inhaler levalbuterol HCl 1.25 mg/3 mL 1.25 mg INH Q4H #540 vial 12/11/20 solution for nebulization acetylcysteine 100 mg/mL (10 %) 2 ml INH QAM #90 ml 01/13/21 solution omalizumab 150 mg subcutaneous 150 mg SQ MONTHLY #1 ea 02/02/21 solution (Xolair) amoxicillin 500 mg tablet 2,000 mg PO UD PRN #4 tab 02/19/21 Wheeled Walker #1 ea 02/26/21 verapamil 120 mg tablet,extended 120 mg PO HS #30 tab 04/01/21 release pantoprazole 40 mg tablet,delayed 40 mg PO QAM #90 tab 04/20/21 release montelukast 10 mg tablet 10 mg PO HS #90 tab 05/07/21 (Singulair) fluticasone fur. 200 mcg-umeclid 1 inh INHALATION QAM #3 inhaler 06/10/21 62.5 mcg-vilant 25 mcg inhalat.powder (Trelegy Ellipta) rivaroxaban 20 mg tablet (Xarelto) 20 mg PO QAM #90 tab 07/13/21 escitalopram oxalate 10 mg tablet 10 mg PO QAM #90 tab 07/22/21 levothyroxine 25 mcg tablet 25 mcg PO QAM #90 tab 08/26/21 cyclobenzaprine 10 mg tablet 10 mg PO TID PRN #30 tab 09/04/21 tramadol 50 mg tablet 50 mg PO Q6H PRN #40 tab 09/18/21 clonazepam 0.5 mg tablet (Klonopin) 1 mg PO TID #180 tab 10/01/21 azelastine 137 mcg (0.1 %) nasal spray aerosol 1 spray INTRANASAL QAM calcium carbonate 600 mg-vitamin D3 10 mcg (400 unit) tablet (Calcium 600 + D(3)) 1 tab PO BID multivitamin 1 tab PO QAM denosumab 60 mg/mL subcutaneous syringe (Prolia) 60 mg SUBCUT Q6M diclofenac sodium 1 % topical gel 4 g TOPICAL BID PRN ascorbic acid (vitamin C) 500 mg tablet 1,000 mg PO QAM cholecalciferol (vitamin D3) 50 mcg (2,000 unit) capsule 2,000 units PO QAM omega-3 fatty acids 1,000 mg capsule (Fish Oil Concentrate) 1,000 mg PO QAM epinephrine 0.3 mg/0.3 mL injection, auto-injector (EpiPen 2-Dustin) 0.3 mg IM Q15M PRN levalbuterol tartrate 45 mcg/actuation aerosol inhaler 2 puffs INHALATION Q4H PRN levalbuterol HCl 1.25 mg/3 mL solution for nebulization 1.25 mg INH Q4H acetylcysteine 100 mg/mL (10 %) solution 2 ml INH QAM omalizumab 150 mg subcutaneous solution (Xolair) 150 mg SQ MONTHLY amoxicillin 500 mg tablet 2,000 mg PO UD PRN Wheeled Walker verapamil 120 mg tablet,extended release 120 mg PO HS pantoprazole 40 mg tablet,delayed release 40 mg PO QAM montelukast 10 mg tablet (Singulair) 10 mg PO HS fluticasone fur. 200 mcg-umeclid 62.5 mcg-vilant 25 mcg inhalat.powder (Trelegy Ellipta) 1 inh INHALATION QAM rivaroxaban 20 mg tablet (Xarelto) 20 mg PO QAM escitalopram oxalate 10 mg tablet 10 mg PO QAM levothyroxine 25 mcg tablet 25 mcg PO QAM cyclobenzaprine 10 mg tablet 10 mg PO TID PRN tramadol 50 mg tablet 50 mg PO Q6H PRN clonazepam 0.5 mg tablet (Klonopin) 1 mg PO TID docusate sodium 100 mg tablet (Stool Softener) 100 mg PO DAILY PRN linaclotide 290 mcg capsule (Linzess) 290 mcg PO QAM nutritional supp - diet aids 1 tab PO QAM ofloxacin 0.3 % ear drops 5 drp OTIC (EAR) QAM Continue as directed denosumab 60 mg/mL subcutaneous syringe (Prolia) 60 mg SUBCUT Q6M (do not use day of surgery) epinephrine 0.3 mg/0.3 mL injection, auto-injector (EpiPen 2-Dustin) 0.3 mg IM Q15M PRN(if needed) omalizumab 150 mg subcutaneous solution (Xolair) 150 mg SQ MONTHLY amoxicillin 500 mg tablet 2,000 mg PO UD PRN(if needed) ASK your prescriber and surgeon rivaroxaban 20 mg tablet (Xarelto) 20 mg PO QAM STOP taking 2 weeks before surgery omega-3 fatty acids 1,000 mg capsule (Fish Oil Concentrate) 1,000 mg PO QAM STOP taking 24 hours before surgery diclofenac sodium 1 % topical gel 4 g TOPICAL BID PRN DO NOT take the morning of surgery calcium carbonate 600 mg-vitamin D3 10 mcg (400 unit) tablet (Calcium 600 + D(3)) 1 tab PO BID multivitamin 1 tab PO QAM ascorbic acid (vitamin C) 500 mg tablet 1,000 mg PO QAM cholecalciferol (vitamin D3) 50 mcg (2,000 unit) capsule 2,000 units PO QAM cyclobenzaprine 10 mg tablet 10 mg PO TID PRN docusate sodium 100 mg tablet (Stool Softener) 100 mg PO DAILY PRN linaclotide 290 mcg capsule (Linzess) 290 mcg PO QAM nutritional supp - diet aids 1 tab PO QAM Take morning of surgery With a small sip of water, OTHERWISE NOTHING TO EAT OR DRINK AFTER MIDNIGHT: azelastine 137 mcg (0.1 %) nasal spray aerosol 1 spray INTRANASAL QAM levalbuterol tartrate 45 mcg/actuation aerosol inhaler 2 puffs INHALATION Q4H PRN(use if needed; please bring with you to hospital day of surgery if possible) levalbuterol HCl 1.25 mg/3 mL solution for nebulization 1.25 mg INH Q4H(if needed) acetylcysteine 100 mg/mL (10 %) solution 2 ml INH QAM pantoprazole 40 mg tablet,delayed release 40 mg PO QAM fluticasone fur. 200 mcg-umeclid 62.5 mcg-vilant 25 mcg inhalat.powder (Trelegy Ellipta) 1 inh INHALATION QAM escitalopram oxalate 10 mg tablet 10 mg PO QAM levothyroxine 25 mcg tablet 25 mcg PO QAM tramadol 50 mg tablet 50 mg PO Q6H PRN(okay to take up to 4 hours prior to surgery if needed) clonazepam 0.5 mg tablet (Klonopin) 1 mg PO TID ofloxacin 0.3 % ear drops 5 drp OTIC (EAR) QAM Take evening before surgery calcium carbonate 600 mg-vitamin D3 10 mcg (400 unit) tablet (Calcium 600 + D(3)) 1 tab PO BID levalbuterol tartrate 45 mcg/actuation aerosol inhaler 2 puffs INHALATION Q4H PRN(use if needed; please bring with you to hospital day of surgery if possible) levalbuterol HCl 1.25 mg/3 mL solution for nebulization 1.25 mg INH Q4H(if needed) verapamil 120 mg tablet,extended release 120 mg PO HS montelukast 10 mg tablet (Singulair) 10 mg PO HS cyclobenzaprine 10 mg tablet 10 mg PO TID PRN(if needed) tramadol 50 mg tablet 50 mg PO Q6H PRN(if needed) clonazepam 0.5 mg tablet (Klonopin) 1 mg PO TID Other Notes If you have any questions please call us at [phone] or [phone] or [phone] or [phone]
--- NOTE | 2021-10-05 08:29 | Anesthesiology Consultation ---
Date of Service October 05, 2021 Assessment & Plan (1) Encounter for pre-operative examination: Chart Review Chart Review: Acceptable Risk for Surgery (pending pulmonary office visit 10/06/21 and preop Covid testing results ) and Patient seen in Pre Admission Testing -Awaiting pulm note- scheduled 10/06/21 at 3pm. Last dose of Xarelto was in the evening on 10/03/21 per patient (per PCP instructions) Per PAT appt on 09/30/21, patient denies any recent travel or large group activities. No known Covid positive exposures or Covid related symptoms. No known Covid infection in the past 90 days. Pt is vaccinated for Covid. Preop Covid testing done 10/05/21 = will await results. Educated on importance of self quarantining, social distancing and wearing mask in public for the patient one week prior to surgery and after Covid testing done Seen by PCP 09/30/21= patient presents for routine visit. PCP aware of upcoming left hip replacement planned in near future. Currently pulmonary disease is under good control, no change in his medications and no exacerbation. Chronic dyspnea with no chest pain. Patient recently referred to new fabrication supervisor (Dr. Rossi). COPD/severe persistent asthma/bronchiectasison long-term anticoagulants with home oxygen therapy/BiPAP. Stable no changes continue current meds. Continue follow-up with pulmonary establishing with a new provider 10/07/21 (Pt rescheduled pulm appt due to surgery date being 10/07/21). Patient is high risk for all surgeriespatient is aware follow-up with pulmonology prior to evaluation would be beneficial. Chronic reflux/esophagitis/esophageal spasm/GERDgenerally controlled controlled on pantoprazole. Patient seen by third rail installer 09/22/2021 = it seems respiratory symptoms continue to be very poorly controlled. Discussed switching to Tezsprie to better control asthma. Patient advised to get his next dose of Xolair and then we can decide to proceed with other medication if wanted. We will update antibody levels given his history of hypogammaglobulinemia. In the past not severe enough that would require IVIGbut possible may progress to that point. Follow-up in 2 to 3 months. Seen by cardiology 04/01/2021 = patient had been initially referred for evaluation of dyspnea and chest discomfort. Complaints ongoing for over a year. Has since undergone dobutamine stress echo, echocardiogram and right heart cath for symptoms. Patient symptoms of heart pain does not clear if this represents any cardiac conditionin fact cardiac evaluation to date has been unremarkable. Cardiology feels with confidence not representing CAD. No history of elevated cardiac biomarkers, stress echo performed over a year ago was unremarkable. Symptoms are atypical and cardio did not believe he requires any additional testing for coronary disease in the absence of new symptoms. Uncertain if his pectus deformity and chest anatomy plays a role in the symptoms is also unclear. Suppose it is possible that the location and orientation of his heart somewhat produces symptoms described. Did change medication from diltiazem to verapamil. Does not appear to be a candidate for surgical reconstruction. Dyspneamult iple possible etiologies. No evidence of cardiac involvement and dyspnea. History of T wave morphologies on EKGs over the past yearssimply may be related to pectus excavated him or his hyperventilation. Do not believe the symptoms related to coronary disease. Cardio does not suggest any additional evaluation for coronary disease. Bilateral myringotomy and T-tube insertion 12/26/2020 = done under [facility] with LMA #5. Atraumatic insertion x1. History Surgery Operation Date: 10/07/21 10:50 Proposed Procedures p Left Total Hip Arthroplasty [facility] - Marco Perry, Height/Weight Height: 5 ft 11 in Weight: 79.5 kg Allergies Allergy/AdvReac Type Severity Reaction Status Date / Time gluten Allergy Mild STOMACH Verified 10/01/21 09:52 ISSUES lactose Allergy Mild Gastrointestinal Verified 10/01/21 09:52 Upset ciprofloxacin AdvReac Intermediate issue with Verified 10/01/21 09:52 legs oxycodone AdvReac Mild GI upset Verified 10/01/21 09:52 Medications Home Medications Medication Instructions Recorded Confirmed Last Taken azelastine 137 mcg (0.1 %) nasal 1 spray INTRANASAL QAM 09/05/18 10/01/21 03/09/21 spray aerosol calcium carbonate 600 mg-vitamin 1 tab PO BID 09/05/18 10/01/21 03/09/21 D3 10 mcg (400 unit) tablet (Calcium 600 + D(3)) multivitamin 1 tab PO QAM 09/05/18 10/01/21 03/09/21 denosumab 60 mg/mL subcutaneous 60 mg SUBCUT Q6M 10/10/18 10/01/21 08/04/20 syringe (Prolia) diclofenac sodium 1 % topical gel 4 g TOPICAL BID PRN 01/13/19 10/01/21 12/25/20 ascorbic acid (vitamin C) 500 mg 1,000 mg PO QAM tab 03/27/19 10/01/21 03/09/21 tablet cholecalciferol (vitamin D3) 50 2,000 units PO QAM cap 03/27/19 10/01/21 03/09/21 mcg (2,000 unit) capsule omega-3 fatty acids 1,000 mg 1,000 mg PO QAM 04/13/19 10/01/21 03/09/21 capsule (Fish Oil Concentrate) epinephrine 0.3 mg/0.3 mL 0.3 mg IM Q15M PRN 09/17/19 10/01/21 Unknown injection, auto-injector (EpiPen 2-Dustin) levalbuterol tartrate 45 2 puffs INHALATION Q4H PRN #45 gm 02/28/20 10/01/21 03/09/21 mcg/actuation aerosol inhaler levalbuterol HCl 1.25 mg/3 mL 1.25 mg INH Q4H #540 vial 12/11/20 10/01/21 03/09/21 solution for nebulization acetylcysteine 100 mg/mL (10 %) 2 ml INH QAM #90 ml 01/13/21 10/01/21 03/09/21 solution omalizumab 150 mg subcutaneous 150 mg SQ MONTHLY #1 ea 02/02/21 10/01/21 02/25/21 solution (Xolair) amoxicillin 500 mg tablet 2,000 mg PO UD PRN #4 tab 02/19/21 10/01/21 Unknown Wheeled Walker #1 ea 02/26/21 09/30/21 Unknown verapamil 120 mg tablet,extended 120 mg PO HS #30 tab 04/01/21 10/01/21 Unknown release pantoprazole 40 mg tablet,delayed 40 mg PO QAM #90 tab 04/20/21 10/01/21 Unknown release montelukast 10 mg tablet 10 mg PO HS #90 tab 05/07/21 10/01/21 Unknown (Singulair) fluticasone fur. 200 mcg-umeclid 1 inh INHALATION QAM #3 inhaler 06/10/21 10/01/21 Unknown 62.5 mcg-vilant 25 mcg inhalat.powder (Trelegy Ellipta) rivaroxaban 20 mg tablet (Xarelto) 20 mg PO QAM #90 tab 07/13/21 10/01/21 Unknown escitalopram oxalate 10 mg tablet 10 mg PO QAM #90 tab 07/22/21 10/01/21 Unknown levothyroxine 25 mcg tablet 25 mcg PO QAM #90 tab 08/26/21 10/01/21 Unknown cyclobenzaprine 10 mg tablet 10 mg PO TID PRN #30 tab 09/04/21 10/01/21 Unknown tramadol 50 mg tablet 50 mg PO Q6H PRN #40 tab 09/18/21 10/01/21 Unknown clonazepam 0.5 mg tablet (Klonopin) 1 mg PO TID #180 tab 10/01/21 10/01/21 Unknown docusate sodium 100 mg tablet 100 mg PO DAILY PRN 10/01/21 10/01/21 Unknown (Stool Softener) linaclotide 290 mcg capsule 290 mcg PO QAM 10/01/21 10/01/21 Unknown (Linzess) nutritional supp - diet aids 1 tab PO QAM 10/01/21 10/01/21 Unknown ofloxacin 0.3 % ear drops 5 drp OTIC (EAR) QAM 10/01/21 10/01/21 Unknown Past Medical History Medical History (Updated 10/05/21 @ 13:31 by Renate Alexandre PA-C) Abnormal gait Due to neuropathy Uses wheeled walker Allergic rhinitis Anemia Iron d/c'ed approximately 1week ago per PCP instructions per patient Bronchiectasis FOLLOWS WITH PULMONARY--multiple inhalers/nebulizer Chronic deep vein thrombosis of popliteal vein Per pt has been behind left knee for last 3yrs, has seen manager business systems regarding this--on Xarelto- stable - surgeon aware and feels okay to proceed Chronic reflux esophagitis COPD (chronic obstructive pulmonary disease) Dextroscoliosis Esophageal spasm Tx with verapamil Fracture of maxillary sinus with routine healing Pt states d/t fall off mobility scooter happened summer--no surgery, has healed GERD (gastroesophageal reflux disease) On pantoprazole H/O lymphopenia History of malaria 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, 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 Hx pulmonary embolism (~2015) Reason for Xarelto daily Hypothyroidism Mastoiditis, chronic Mixed hearing loss, bilateral Does wear bilateral hearing aids Nausea and vomiting after administration of anesthetic agent Neuropathy In bilateral arm and leg, pt states he ambulates with a wheeled walker On home oxygen therapy 2L via Bipap every night ÁNGEL (obstructive sleep apnea) On BiPAP Osteoporosis Pectus excavatum Tremor Right hand Vocal cord dysfunction Exercise / Class Metabolic Activity III < 4 Walking/Shop/Light housework (1/2 flight of stairs - SOB but no chest pain ) Past Family History Family History Mother Osteoporosis Father Prostate cancer Coronary heart disease Unknown Prostate cancer Grandmother (Paternal) Family history of diabetes mellitus Other Allergies Asthma Cancer Diabetes Hearing loss Heart disease No family history of adverse response to anesthesia No family history of bleeding disorder Stroke Denies family history of Hypertension Past Surgical History Surgical History History of bilateral cataract extraction History of bronchoscopy multiple History of cardiac cath (~04/15/20) 2019 @ [facility] d/t experiencing chest pain--No stents placed History of colonoscopy 09/2020 repeat 3 yrs History of ear surgery X4 History of esophagogastroduodenoscopy (EGD) last 03/10/21 @ [facility] History of placement of ear tubes 12/26/2020 LMA#5. No postop issues per anesthesia progress note. History of tooth extraction Hx of hemorrhoidectomy S/P total hip arthroplasty Right. 10/11/2018: SAB at L3-L4. Anesthesia post-op progress note: hypotensive and tachycardic intraoperatively with over 700 ml of blood loss. He was given one unit of PRBC in the OR. In PACU, he was given 2000 ml of LR in PACU which caused HR to come down to the 70s from 110s and SBP to the 90s up from the 80s. His postop hgb was 9.[address] Perry is aware. The patient is otherwise awake and comfortable. Past Anesthesia History No Hx of Anesthesia Complications (with exception to PONV ) and No Family Hx of Anesthesia Complications History of PONV No Hx of Motion Sickness and History of PONV (relieved with preop op anti-nausea meds ) Social History Smoking Status: Never smoker Do You Dip or Chew Tobacco: No Hx Alcohol Use: No Hx Substance Use: No substance use type: does not use Review of Systems Hx of blood transfusion- s/p right FLORI Chronic SOB and cough secondary to COPD - stable Occ palpitations - controlled with Verampil Patient denies chest pain, wheezing. No hx of seizures, stroke, [place]. Physical Exam Vital Signs VITALS BP 106/68 P 84 TEMP 98.0 SP02 96% RESP 16 Constitutional no acute distress ENMT Mouth: no TMJ clicking Thyromental Distance: > or= 3.5 Finger Breadths (4.0) Mallampati Class: II Bottom partial denture Neck neck extension not limited Respiratory normal respiratory effort; no respiratory distress Auscultation: lungs clear to auscultation bilaterally; no wheezes Cardiovascular Rate/Rhythm: regular rate and regular rhythm Heart Sounds: no murmur Vessels: no carotid bruit Musculoskeletal Spine: no pain with cervical ROM Extremities: extremities normal to inspection Psychiatric Orientation: alert Lab Results Anesthesia Preop Results Results Anesthesia Widget: WBC 3.84 K/uL (4.8-10.8) L 09/24/21 Hgb 13.6 g/dL (14.0-18.0) L 09/24/21 Hct 42.6 % (42-52) 09/24/21 Plt 150 K/uL (130-400) 09/24/21 Na 140 mmol/L (136-145) 09/24/21 K 3.5 mmol/L (3.5-5.1) 09/24/21 Cl 106 mmol/L (98-107) 09/24/21 CO2 29 mmol/L (21-32) 09/24/21 BUN 12 mg/dl (6-23) 09/24/21 Creat 0.67 mg/dl (0.6-1.4) 09/24/21 Glucose Level 86 mg/dl (70-99(Fasting)) 09/24/21 PT 10.6 Seconds (9.0-12.0) 10/05/21 PTT 27.0 Seconds (21.0-31.0) 10/05/21 INR 1.0 (0.9-1.1) 10/05/21 Blood Type A Positive 10/05/21 Antibody Screen NEGATIVE 10/05/21 Testing Electrocardiogram Date: 09/03/21 Findings: + NSR @ (91bpm) Normal EKG per cardio. When compared to EKG from February 19, 2021- QRS axis shifted left, minimal criteria for inferior infarct are no longer present, non specific change in ST segment in inferior leads per cardio. Chest X-Ray Date: 09/03/21 Cardiomegaly with prominence of the pulmonary vasculature. Correlate clinically for evidence of fluid overload/congestive failure. Bibasilar opacities likely represent scarring/atelectasis. Clinical correlation will be required. Echocardiogram Date: 04/16/20 EF: 50-55% LV Function: normal RWMA: + none Other Findings: + diastolic dysfunction (Grade I ); no LVH Valvular Disease: + no significant valvular disease Compared to study from 09/18/19, no significant change Stress Test Date: 09/19/19 Type: DSE Resting EF: 60-65% Resting LV Function: normal Resting RWMA: + none Valvular Disease: no significant valvular disease Normal pharmacologic stress ECHO. No ECHO or EKG evidence of myocardial ischemia having achieved heart rate adequate for diagnostic purposes. No arrhythmias were noted with stress Mild dilated RV. Mild to moderate RVH. Grade I DD. Cardiac Catheterization Date: 04/15/20 Right Heart Catheterization Conclusions: Normal intrapulmonary and intracardiac pressures. No pulmonary hypertension Normal pulmonary capillary wedge pressure Normal cardiac output Pulmonary Function Test Date: 02/25/21 Mild proportional reduction in both FEV1 and FVC with a reduced ratio however review of flow volume loops reveal severely truncated expiratory limbs possibly consistent with patient's diagnosis of vocal cord dysfunction. Assessment of neuromuscular strength revealed reduction in MVV MIP and MEP. Clinical correlation is recommended. Other Testing Chest CTA 09/03/21= There is no evidence of pulmonary embolus in the main, lobar, or segmental pulmonary arteries. There is no airspace consolidation or pleural effusion. Mild cardiomegaly. Left LE venous doppler 09/03/21= Partially occlusive thrombus is noted within the mid to distal popliteal vein with occlusive thrombus within one of the duplicated posterior tibial veins within the proximal to mid segments. There is otherwise normal compressibility, flow, and augmentation within the left lower extremity deep venous system. Brain MRI 09/19/19 = No acute intracranial abnormality. No abnormal enhancement. There are a few scattered punctate foci of T2/FLAIR prolongation within the subcortical white matter of the bilateral frontal hemispheres, likely of no clinical significance. Differential considerations would include gliosis from chronic migraines versus early chronic microvascular ischemic disease.
--- NOTE | 2021-10-06 12:56 | History & Physical Report ---
Date of Service October 06, 2021 Assessment & Plan (1) Avascular necrosis of bone of left hip: We will proceed with a left anterior total of arthroplasty. Postoperatively he will be started on aspirin for DVT prophylaxis and kept overnight in the hospital for postoperative medical management. History of Present Illness Chief Complaint: Avascular necrosis of the left hip. Primary Care Provider: Marco Lantigua DO Nikhil is a pleasant 46-year-old male who I did a right hip replacement on in the past. He is done well with that. Unfortunately is now dealing with severe left hip pain. X-rays suggested avascular necrosis so I sent her for the MRI. The MRI confirmed avascular necrosis of the left hip. He is really having a lot of pain. After failing conservative treatment, he is elected proceed with a left total hip arthroplasty. Allergies Allergy/AdvReac Type Severity Reaction Status Date / Time gluten Allergy Mild STOMACH Verified 10/06/21 08:22 ISSUES lactose Allergy Mild Gastrointestinal Verified 10/06/21 08:22 Upset ciprofloxacin AdvReac Intermediate issue with Verified 10/06/21 08:22 legs oxycodone AdvReac Mild GI upset Verified 10/06/21 08:22 Home Medications Medication Instructions Recorded Confirmed Type azelastine 137 mcg (0.1 %) nasal 1 spray INTRANASAL QAM 09/05/18 10/06/21 History spray aerosol calcium carbonate 600 mg-vitamin 1 tab PO BID 09/05/18 10/06/21 History D3 10 mcg (400 unit) tablet (Calcium 600 + D(3)) multivitamin 1 tab PO QAM 09/05/18 10/06/21 History denosumab 60 mg/mL subcutaneous 60 mg SUBCUT Q6M 10/10/18 10/06/21 History syringe (Prolia) diclofenac sodium 1 % topical gel 4 g TOPICAL BID PRN 01/13/19 10/06/21 History ascorbic acid (vitamin C) 500 mg 1,000 mg PO QAM tab 03/27/19 10/06/21 History tablet cholecalciferol (vitamin D3) 50 2,000 units PO QAM cap 03/27/19 10/06/21 History mcg (2,000 unit) capsule omega-3 fatty acids 1,000 mg 1,000 mg PO QAM 04/13/19 10/06/21 History capsule (Fish Oil Concentrate) epinephrine 0.3 mg/0.3 mL 0.3 mg IM Q15M PRN 09/17/19 10/06/21 History injection, auto-injector (EpiPen 2-Dustin) levalbuterol tartrate 45 2 puffs INHALATION Q4H PRN #45 gm 02/28/20 10/06/21 Rx mcg/actuation aerosol inhaler levalbuterol HCl 1.25 mg/3 mL 1.25 mg INH Q4H #540 vial 12/11/20 10/06/21 Rx solution for nebulization acetylcysteine 100 mg/mL (10 %) 2 ml INH QAM #90 ml 01/13/21 10/06/21 Rx solution omalizumab 150 mg subcutaneous 150 mg SQ MONTHLY #1 ea 02/02/21 10/06/21 Rx solution (Xolair) amoxicillin 500 mg tablet 2,000 mg PO UD PRN #4 tab 02/19/21 10/06/21 Rx Wheeled Walker #1 ea 02/26/21 10/06/21 Rx verapamil 120 mg tablet,extended 120 mg PO HS #30 tab 04/01/21 10/06/21 Rx release pantoprazole 40 mg tablet,delayed 40 mg PO QAM #90 tab 04/20/21 10/06/21 Rx release montelukast 10 mg tablet 10 mg PO HS #90 tab 05/07/21 10/06/21 Rx (Singulair) fluticasone fur. 200 mcg-umeclid 1 inh INHALATION QAM #3 inhaler 06/10/21 10/06/21 Rx 62.5 mcg-vilant 25 mcg inhalat.powder (Trelegy Ellipta) rivaroxaban 20 mg tablet (Xarelto) 20 mg PO QAM #90 tab 07/13/21 10/06/21 Rx escitalopram oxalate 10 mg tablet 10 mg PO QAM #90 tab 07/22/21 10/06/21 Rx levothyroxine 25 mcg tablet 25 mcg PO QAM #90 tab 08/26/21 10/06/21 Rx cyclobenzaprine 10 mg tablet 10 mg PO TID PRN #30 tab 09/04/21 10/06/21 Rx tramadol 50 mg tablet 50 mg PO Q6H PRN #40 tab 09/18/21 10/06/21 Rx clonazepam 0.5 mg tablet (Klonopin) 1 mg PO TID #180 tab 10/01/21 10/06/21 Rx docusate sodium 100 mg tablet 100 mg PO DAILY PRN 10/01/21 10/06/21 History (Stool Softener) linaclotide 290 mcg capsule 290 mcg PO QAM 10/01/21 10/06/21 History (Linzess) nutritional supp - diet aids 1 tab PO QAM 10/01/21 10/06/21 History ofloxacin 0.3 % ear drops 5 drp OTIC (EAR) QAM 10/01/21 10/06/21 History Past Med/Surg History Medical History Abnormal gait Due to neuropathy Uses wheeled walker Allergic rhinitis Anemia Iron d/c'ed approximately 1week ago per PCP instructions per patient Bronchiectasis FOLLOWS WITH PULMONARY--multiple inhalers/nebulizer Chronic deep vein thrombosis of popliteal vein Per pt has been behind left knee for last 3yrs, has seen wares sorter regard ing this--on Xarelto- stable - surgeon aware and feels okay to proceed Chronic reflux esophagitis COPD (chronic obstructive pulmonary disease) Dextroscoliosis Esophageal spasm Tx with verapamil Fracture of maxillary sinus with routine healing Pt states d/t fall off mobility scooter happened summer--no surgery, has healed GERD (gastroesophageal reflux disease) On pantoprazole H/O lymphopenia History of malaria 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, 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 Hx pulmonary embolism (~2015) Reason for Xarelto daily Hypothyroidism Mastoiditis, chronic Mixed hearing loss, bilateral Does wear bilateral hearing aids Nausea and vomiting after administration of anesthetic agent Neuropathy In bilateral arm and leg, pt states he ambulates with a wheeled walker On home oxygen therapy 2L via Bipap every night ÁNGEL (obstructive sleep apnea) On BiPAP Osteoporosis Pectus excavatum Tremor Right hand Vocal cord dysfunction Surgical History History of bilateral cataract extraction History of bronchoscopy multiple History of cardiac cath (~04/15/20) 2019 @ [facility] d/t experiencing chest pain--No stents placed History of colonoscopy 09/2020 repeat 3 yrs History of ear surgery X4 History of esophagogastroduodenoscopy (EGD) last 03/10/21 @ [facility] History of placement of ear tubes 12/26/2020 LMA#5. No postop issues per anesthesia progress note. History of tooth extraction Hx of hemorrhoidectomy S/P total hip arthroplasty Right. 10/11/2018: SAB at L3-L4. Anesthesia post-op progress note: hypotensive and tachycardic intraoperatively with over 700 ml of blood loss. He was given one unit of PRBC in the OR. In PACU, he was given 2000 ml of LR in PACU which caused HR to come down to the 70s from 110s and SBP to the 90s up from the 80s. His postop hgb was 9.[address] Perry is aware. The patient is otherwise awake and comfortable. Family History Mother Osteoporosis Father Prostate cancer Coronary heart disease Unknown Prostate cancer Grandmother (Paternal) Family history of diabetes mellitus Other Allergies Asthma Cancer Diabetes Hearing loss Heart disease No family history of adverse response to anesthesia No family history of bleeding disorder Stroke Denies family history of Hypertension Social History Smoking Status: Never smoker Second Hand Exposure: No; Hx Alcohol Use: No Hx Substance Use: No Preferred Language: Urdu Communication Ability: Effective Visual Impairment: Limited Hearing Ability: Use of Hearing Aid Branch Associate Teller Required: No Beliefs That Will Affect Care: None marital status: Current Living Situation: Spouse Current Living Situation Comment: Lives with and 15yr old son current occupational status: unemployed 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 Physical Exam Examination of the left hip, he has a very antalgic gait. He ambulates with a cane. Is difficult time lying down because of his hip pain. He has severe pain with any range of motion of his left hip. Constitutional WD/WN, vitals as above Eyes PERRL, conjunctivae normal, anicteric sclerae ENMT external ear and nose normal, oropharynx normal Neck trachea midline, no thyromegaly Respiratory normal respiratory effort Cardiovascular RRR, no murmur, no edema Gastrointestinal (Abdomen) normal bowel sounds, soft, nontender, no hepatosplenomegaly Psychiatric A+Ox3, euthymic affect Results & Data Results & Data Laboratory Results . Diagnostic Findings X-rays and MRI of the left hip do show avascular necrosis. I do not see any significant collapse at this point. PG Care Time/CCT Total # of Minutes Spent Total Time Spent with Patient: Total time spent is greater than 50% in coordination of care (as documented) at patient's floor/unit and/or counseling patient: Coding Level of Care Code None Diagnoses Avascular necrosis of bone of left hip M87.052
[~2021-10-07 06:16] MED LIST changes: -BUPIVACAINE 0.5 % 5 MG/1 ML PF 10ML VIAL ONE; -CEFAZOLIN 2000MG 2,000 MG/15 ML SYR IV SCH; +GABAPENTIN 300 MG CAP PO SCH; -GABAPENTIN 300 MG x 3 PO SCH; +Ketorolac (*for OR use only*) 30 MG, dexAMETHasone 4 MG, KETAMINE HCL (**OR use only) 1... INFIL SCH; +LACTATED RINGER'S 1,000 ML IV SCH; +LR 15ML/HR IV SCH; -ROPIVACAINE 0.5% HCL/PF 150 MG, BUPIVACAINE 0.5% MPF 30 ML, EPINEPHrine 30MG/30ML (OR U... INFIL SCH; +ceFAZolin 2000MG 2,000 MG/15 ML SYR IV SCH; +dexAMETHasone 4 MG TAB PO SCH
[2021-10-07] MEDS ORDERED: BUPIVACAINE 0.5 % 5 MG/1 ML PF 10ML VIAL ONE (06:28)
--- NOTE | 2021-10-07 06:38 | History & Physical Bridge Note ---
Date of Service October 07, 2021 History & Physical Bridge Note I have examined the patient, reviewed the History & Physical and in the interval since the performance of the History & Physical I have noted the following changes of clinical significance: no changes noted
[2021-10-07] MEDS ORDERED: MIDAZOLAM HCL 1 MG/ML 2ML VIAL ONE ×2 (07:11→09:06)
[2021-10-07] MEDS ORDERED: PROPOFOL IV EMULSION 10 MG/ML 20 ML VIAL IV ONE ×3 (07:12→09:13)
[2021-10-07] MEDS ORDERED: ATROPINE SULFATE 0.1 MG/ML 10ML SYR IV PRN (08:13)
[2021-10-07] MEDS ORDERED: ONDANSETRON INJ 2 MG/ML 2 ML VIAL IV PRN (08:13)
[2021-10-07] MEDS ORDERED: ePHEDrine sulfate 50 MG/ML AMP IV PRN (08:13)
[2021-10-07] MEDS ORDERED: ORTHO JOINT ANESTHETIC ONE (08:46)
[2021-10-07] MEDS ORDERED: ONDANSETRON INJ 2 MG/ML 2 ML VIAL ONE (09:33)
[2021-10-07] MEDS ORDERED: ePHEDrine sulfate 50 MG/ML AMP ONE (09:37)
--- NOTE | 2021-10-07 11:08 | Operative Report ---
PG Post Operative Report Pre & Post Diagnosis Operation Date: 10/07/21 09:00 Pre-Op Diagnosis: Avascular necrosis of the left hip Post-Op Diagnosis: Avascular necrosis of the left hip I identified the patient and participated in the time-out.: Yes Procedure Operation Date: 10/07/21 09:00 Actual Procedures p Left Anterior Total Hip Arthroplasty, Uncemented(Left) - Marco Perry DO Surgeon Marco Perry DO Classified Advertising Manager Marco Lyn PAC Estimated Blood Loss 300 Findings Consistent with Post-Op Diagnosis Specimens Left femoral head Complications none Disposition Disposition: Recovery Room Indications Thai is a pleasant 46-year-old male who had a right hip replacement several years ago. He is done well with that. Unfortunately he has been dealing with recent severe left hip pain. MRI and x-rays were diagnostic for avascular necrosis of the left hip. After failing conservative treatment, he elected proceed with a left total hip arthroplasty. Description of Procedure Implants used I used a [employer]immer[employer]omet total hip arthroplasty system with a size 7.5 high offset Avenir Complete stem, a 56mm Osseoti cup with a 25mm screw, an E1 polyethylene liner, a 40mm ceramic head with a +3.5 neck. Thai arrived at the hospital for the above procedure. He was seen in the preoperative holding area and the operative extremity was identified and signed. He was given a spinal anesthetic, a preoperative antibiotic, and TXA. He was then taken back to the operating room and laid on the table in the supine position. The spinal anesthetic was not providing enough pain relief and so he was put under general anesthesia. The operative leg was secured to a Puristst leg positioner. The hip was then prepped and draped in sterile fashion. A timeout was done and the patient and the operative extremity was properly identified. An anterior approach was used. Dissection was taken down through the fascia and the tensor muscle belly was retracted laterally and the rectus was retracted medially. The circumflex vessels were identified and ligated. The capsule was then incised and tagged for later repair. The femoral neck was then cut and the femoral head was removed. The acetabulum was exposed. Time was spent doing a complete circumferential labral release. Sequential reaming of the acetabulum up to a size 55 reamer was done. Final reamings were done under fluoroscopy to ensure appropriate version. A Biomet 56mm Osseoti cup was then impacted into place. A single 25 mm screw was placed. The E1 polyethylene liner was then snapped into place. Surrounding soft tissues were then injected with 100 cc of an orthopedic pain control cocktail. The proximal femur was then exposed. Sequential broaching up to a size 7.5 broach was done. Off that broach a size 40 head with a +3.5 neck was trialed. The hip was reduced and fluoroscopic images showed anatomic alignment of the implants in acceptable length. The broach was removed. The final size 7.5 Avenir Complete stem was then impacted into place. A ceramic 40mm head with a +2.5 neck was then impacted onto the stem and the hip was reduced. Final fluoroscopic images showed anatomic alignment of the hip. The capsule was then closed with #1 Vicryl suture. A dilute betadyne lavage was then done for 3 minutes. The joint was then irrigated with normal saline solution. The fascia was closed with #1 PDS suture. Skin was closed with 2-0 Vicryl, anaid, and a Silverlon dressing. He was then transferred to a hospital bed and taken to the post anesthesia care unit in stable condition. He tolerated the procedure well. Marco Lyn PA-C, was present for the entire procedure. He was critical for patient positioning, prepping, draping, retraction exposure, wound closure and application of sterile dressing. I attest to the content of the Intraoperative Record and any orders documented therein. Any exceptions are noted below.
--- NOTE | 2021-10-07 11:55 | Fluoroscopy Report ---
FL hip LT 1V CLINICAL HISTORY: LEFT HIP ANTERIOR TECHNIQUE: 2 views were obtained with the C-arm in the OR with the above procedure. Total fluoroscopy time was 28.4 seconds. Total skin dose was 1.24 mGy. Comparison: None available at the time of this dictation. FINDINGS/IMPRESSION: Intraoperative images were obtained of left hip total arthroplasty. Please correlate with intraoperative fluoroscopy and operative report. ACT 112: Negative or not required by law. Electronically signed by: Trace Fontaine M.D. 10/07/2021 11:54 AM
[2021-10-07] MEDS ORDERED: HYDROCODONE/ACETAMOPHEN 5/325MG TAB PO PRN (12:13)
[2021-10-07] MEDS ORDERED: HYDROmorphone INJ 0.5 MG/0.5 ML SYR IV PRN (12:13)
[2021-10-07] MEDS ORDERED: SODIUM CHLORIDE 0.9% 1000ML 1,000 ML IV SCH ×2 (12:13→20:00)
[2021-10-07] MEDS ORDERED: NON-FORMULARY MEDICATION (Amoxicillin 500 mg tablet) PO PRN (12:13)
[2021-10-07] MEDS ORDERED: bisacodyL 10 MG SUPP PR PRN (12:13)
[2021-10-07] MEDS ORDERED: LEVALBUTEROL TARTRATE 15 GM HFA.AER.AD INH PRN (12:13)
[2021-10-07] MEDS ORDERED: CYCLOBENZAPRINE HCL 10 MG TAB PO PRN (12:13)
[2021-10-07] MEDS ORDERED: NON-FORMULARY MEDICATION (Denosumab [Prolia] 60 mg/mL Syringe) SQ SCH (12:13)
[2021-10-07] MEDS ORDERED: NALOXONE HCL 0.4 MG/1 ML VIAL/CARP IV PRN (12:13)
[2021-10-07] MEDS ORDERED: METOCLOPRAMIDE HCL INJ 5 MG/ML 2 ML VIAL IV PRN (12:13)
[2021-10-07] MEDS ORDERED: EPINEPHrine ADULT AUTO-INJECT 0.3 MG SYR IM PRN (12:13)
[2021-10-07] MEDS ORDERED: MAGNESIUM HYDROXIDE SUSP 30 ML UDC PO PRN (12:13)
--- NOTE | 2021-10-07 12:48 | XRay Report ---
XR hip 1V LT w pelvis CLINICAL HISTORY: IN PACU - A/P PELVIS and LATERAL HIP . Status post total hip replacement COMPARISON STUDY: 09/04/2021 TECHNIQUE: 2 left hip views FINDINGS: The patient is status post total hip replacement. The prosthetic components are in anatomic alignment with no acute abnormality seen. Skin anaid are seen from the recent procedure. IMPRESSION: 1. Status post total hip replacement ACT 112: Negative or not required by law. Electronically signed by: Dany Bhatti M.D. 10/07/2021 12:47 PM
[2021-10-07] MEDS: KETOROLAC 30 MG/ML VIAL IV SCH ×2 (13:19→17:07)
--- NOTE | 2021-10-07 13:36 | Anesthesiology Progress Note ---
Date of Service October 07, 2021 Anesthesia Post Procedure Vital Signs Vital Signs: Temp Pulse Pulse Resp BP Pulse Ox 10/07/21 12:45 36.2 C L 94 H 14 86/56 L 94 10/07/21 12:15 36.2 C L 98 H 12 106/63 94 10/07/21 12:13 36.2 C L 101 H 14 96/64 L 92 10/07/21 12:10 84 19 99/61 L 99 10/07/21 11:55 36 C L 106 H 19 104/66 96 10/07/21 11:45 106 H 19 100/68 92 10/07/21 11:35 98 H 16 110/69 93 10/07/21 11:25 36.5 C 76 17 99/63 L 95 10/07/21 11:15 74 16 105/62 100 10/07/21 11:05 74 16 100/61 99 10/07/21 10:56 36.4 C L 94 H 18 98/69 L 95 10/07/21 06:30 36.8 C 81 20 116/69 95 Pain Intensity Left Hip: Pain Intensity: 4 Transfer of Care Handoff Completed per policy Notes Mental Status: alert / awake / arousable and participated in evaluation Patient Amnestic to Procedure: Yes Nausea / Vomiting: adequately controlled Pain: adequately controlled Airway Patency, RR, SpO2: stable & adequate BP & HR: stable & adequate Hydration State: stable & adequate Neuraxial Anesthesia: was administered and sensory block is resolving Anesthetic Complications: no major complications apparent and Pt Satisfied with anesthetic care
[2021-10-07] MEDS ORDERED: clonazePAM 1 MG TAB PO SCH (14:00)
[2021-10-07] MEDS ORDERED: clonazePAM 1 MG TAB PO PRN ×2 (14:59→15:15)
[2021-10-07] MEDS ORDERED: LEVALBUTEROL HCL 1.25 MG/3 ML NEB INH SCH (15:00)
[2021-10-07] MEDS: ceFAZolin 2000MG 2,000 MG/15 ML SYR IV SCH (17:08)
[2021-10-07] MEDS: VERAPAMIL HCL 120 MG TABCR PO SCH (19:51)
[2021-10-07] MEDS: DOCUSATE SODIUM 100 MG CAP PO SCH (20:02)
[2021-10-07] MEDS: MONTELUKAST SODIUM 10 MG TABLET PO SCH (20:02)
[2021-10-07] MEDS: traMADol HCL 50 MG TABLET PO PRN (20:57)
[2021-10-07] MEDS ORDERED: SENNA 8.6 MG TAB PO SCH (21:00)
[2021-10-08] MEDS: KETOROLAC 30 MG/ML VIAL IV SCH ×2 (00:27→06:01)
[2021-10-08] MEDS: traMADol HCL 50 MG TABLET PO PRN (03:28)
[2021-10-08] MEDS: ceFAZolin 2000MG 2,000 MG/15 ML SYR IV SCH ×2 (03:29→21:00)
[2021-10-08] MEDS: LEVOTHYROXINE SODIUM 25 MCG TABLET PO SCH (06:01)
--- NOTE | 2021-10-08 06:56 | Orthopedic Progress Note ---
Date of Service October 08, 2021 Assessment & Plan (1) Status post left hip replacement: Unfortunately he is really struggling with his hip right now. I want to tack picker an x-ray of his left hip and his left knee. I just want to be more confident about telling him he can continue weightbearing as tolerated. I also want a get a CBC and basic metabolic panel just to make sure his blood levels were okay. 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 As long as the x-rays are negative he can ambulate with physical therapy. We will not send him home today. We will continue to observe him throughout the day today and into tomorrow. Subjective Nikhil was seen and examined at bedside this morning. He was initially doing extremely well with his left hip. He was up and ambulating to the bathroom. He said that later in the evening he was coming back from the bathroom when he began to have pain around his left knee. Since then he has had some muscle spasms and has been very concerned about it. He feels is not able to lift his leg or put any weight on his left leg. He also has some hypotension overnight. Review of Systems All systems reviewed & are unremarkable except as noted in HPI & below. Physical Exam On physical examination of his left leg the dressings clean and dry. His leg lengths are equal. He does have an effusion around his left knee. He has active dorsiflexion plantarflexion of his left ankle. He is unable to do a straight leg raise. Results & Data Results & Data Laboratory Results . Diagnostic Findings Initial postoperative x-rays of the left hip show the prosthesis to be in anatomic alignment without any evidence of fracture, dislocation, or loosening. PG Care Time/CCT Total # of Minutes Spent Total Time Spent with Patient: Total time spent is greater than 50% in coordination of care (as documented) at patient's floor/unit and/or counseling patient: Coding Level of Care Code 89761 Post Operative Follow-Up Diagnoses Status post left hip replacement Z96.642
[2021-10-08] MEDS: LEVALBUTEROL HCL 1.25 MG/3 ML NEB INH PRN ×2 (07:41→19:16)
[2021-10-08 07:43] LABS: Hematocrit (blood only) 36.6 % (42-52); Hemoglobin 11.9 g/dL (14.0-18.0); Mean Corpuscular Hemoglobin 31.2 pg (25-34); Mean Corpuscular Hgb Conc 32.5 g/dL (32-36); Mean Corpuscular Volume 95.8 fL (80-100); Mean Platelet Volume 9.5 fL (7.4-10.4); Platelet Count 138 K/uL (130-400); RDW Coefficient of Variation 15.3 % (11.5-14.5); RDW Standard Deviation 53.5 fL (36.4-46.3); Red Blood Count 3.82 M/uL (4.7-6.1)
--- NOTE | 2021-10-08 07:52 | XRay Report ---
XR knee LT 1 or 2V routine CLINICAL HISTORY: post-op pain. COMPARISON STUDY: 06/26/2017 TECHNIQUE: 2 left knee views FINDINGS: Bones: Compared to the previous study, there is again evidence for patella norma. There is no evidence for an acute fracture or dislocation. There is no lytic or blastic lesion. Joints: There is narrowing of the patellofemoral joint with secondary degenerative changes present in volving the patella. The femoral tibial joint spaces are maintained. There is no evidence for an intr a-articular effusion. The remaining bones are in anatomic alignment. Soft tissues: There is no focal soft tissue abnormality. There is no radiopaque foreign body. IMPRESSION: 1. No acute osseous pathology. 2. Patella norma with degenerative changes at the patellofemoral joint. ACT 112: Negative or not required by law. Electronically signed by: Dany Bhatti M.D. 10/08/2021 7:51 AM
[2021-10-08] MEDS ORDERED: dexAMETHasone 4 MG TAB PO SCH (08:00)
[2021-10-08 08:09] LABS: BUN Creatinine Ratio 20.8 (10-20); Calcium 7.7 mg/dl (8.5-10.1); Creatinine Clr Calc Pharmacy 135.1 ml/min; Est GFR (African American) 128.7 ml/min; Est GFR (Non-African American) 111.1 ml/min
--- NOTE | 2021-10-08 08:21 | XRay Report ---
XR hip LT min 2V CLINICAL HISTORY: Postoperative pain. COMPARISON: Left hip radiographs October 07, 2021. FINDINGS: Alignment of the left hip arthroplasty is anatomic. Note is made of a vertical periprosthe tic lucency within the greater trochanter of the left femur. There is possible offset at the level of the lesser trochanter. This was not evident on prior exam. This could reflect an acute periprostheti c fracture. Skin anaid are present. No unexpected radiopaque foreign bodies. IMPRESSION: Status post total left hip arthroplasty. Vertical periprosthetic lucency within the great er trochanter of the left femur which favors a fracture. Possible offset at the level of the lesser t rochanter. A CT of the left hip could be obtained for better characterization of the suspected fractu re. ACT 112: Negative or not required by law. Electronically signed by: Hang Blood M.D. 10/08/2021 8:20 AM
[2021-10-08] MEDS: AZELASTINE HCL 0.1% NASAL 200 SPRAYS/27,400 MCG BTL SCH (08:24)
[2021-10-08] MEDS: DOCUSATE SODIUM 100 MG CAP PO SCH ×2 (08:24→20:54)
[2021-10-08] MEDS: LINACLOTIDE 145 MCG CAPSULE PO SCH (08:25)
[2021-10-08] MEDS: PANTOprazole 40 MG TAB PO SCH (08:26)
[2021-10-08] MEDS: ESCITALOPRAM OXALATE 10 MG TAB PO SCH (08:27)
[2021-10-08] MEDS: FLUTICASONE FUROATE 200MCG 14 PUFFS/INHALER INH SCH (08:27)
[2021-10-08] MEDS: UMECLIDINIUM/VILANTEROL 62.5/25MCG 7 PUFFS/INHALER INH SCH (08:27)
[2021-10-08] MEDS: OFLOXACIN 0.3% OTIC SOLN 5 ML BTL OT SCH (08:29)
[2021-10-08] MEDS ORDERED: MULTIVITAMIN TAB PO SCH (09:00)
[2021-10-08] MEDS ORDERED: RIVAROXABAN 20 MG TAB PO SCH (09:00)
[2021-10-08] MEDS ORDERED: CHOLECALCIFEROL 1,000 UNITS 25 MCG TAB PO SCH (09:00)
--- NOTE | 2021-10-08 12:50 | Anesthesiology Consultation ---
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 History Surgery Operation Date: 10/07/21 09:00 Proposed Procedures p Left Total Hip Arthroplasty Anterior - Marco Perry DO Operation Date: 10/08/21 09:15 Proposed Procedures p Stem Exchange of Left Femur with Anterior Approach - Marco Perry DO Height/Weight Height: 5 ft 11 in Weight: 76 kg Allergies Allergy/AdvReac Type Severity Reaction Status Date / Time gluten Allergy Mild STOMACH Verified 10/07/21 06:51 ISSUES lactose Allergy Mild Gastrointestinal Verified 10/07/21 06:51 Upset ciprofloxacin AdvReac Intermediate issue with Verified 10/07/21 06:51 legs oxycodone AdvReac Mild GI upset Verified 10/07/21 06:51 Medications Home Medications Medication Instructions Recorded Confirmed Last Taken azelastine 137 mcg (0.1 %) nasal 1 spray INTRANASAL QAM 09/05/18 10/07/21 03/09/21 spray aerosol calcium carbonate 600 mg-vitamin 1 tab PO BID 09/05/18 10/07/21 10/06/21 21:10 D3 10 mcg (400 unit) tablet (Calcium 600 + D(3)) multivitamin 1 tab PO QAM 09/05/18 10/07/21 10/06/21 06:45 denosumab 60 mg/mL subcutaneous 60 mg SUBCUT Q6M 10/10/18 10/07/21 08/04/20 syringe (Prolia) diclofenac sodium 1 % topical gel 4 g TOPICAL BID PRN 01/13/19 10/07/21 12/25/20 ascorbic acid (vitamin C) 500 mg 1,000 mg PO QAM tab 03/27/19 10/07/21 10/07/21 05:45 tablet cholecalciferol (vitamin D3) 50 2,000 units PO QAM cap 03/27/19 10/07/21 10/06/21 19:10 mcg (2,000 unit) capsule omega-3 fatty acids 1,000 mg 1,000 mg PO QAM 04/13/19 10/07/21 10/03/21 07:00 capsule (Fish Oil Concentrate) epinephrine 0.3 mg/0.3 mL 0.3 mg IM Q15M PRN 09/17/19 10/07/21 Unknown injection, auto-injector (EpiPen 2-Dustin) levalbuterol tartrate 45 2 puffs INHALATION Q4H PRN #45 gm 02/28/20 10/07/21 10/07/21 05:30 mcg/actuation aerosol inhaler levalbuterol HCl 1.25 mg/3 mL 1.25 mg INH Q4H #540 vial 12/11/20 10/07/21 03/09/21 solution for nebulization amoxicillin 500 mg tablet 2,000 mg PO UD PRN #4 tab 02/19/21 10/07/21 Unknown Wheeled Walker #1 ea 02/26/21 10/06/21 Unknown verapamil 120 mg tablet,extended 120 mg PO HS #30 tab 04/01/21 10/07/21 10/06/21 21:10 release pantoprazole 40 mg tablet,delayed 40 mg PO QAM #90 tab 04/20/21 10/07/21 10/07/21 05:30 release montelukast 10 mg tablet 10 mg PO HS #90 tab 05/07/21 10/07/21 10/06/21 21:10 (Singulair) rivaroxaban 20 mg tablet (Xarelto) 20 mg PO QAM #90 tab 07/13/21 10/07/21 10/03/21 07:00 escitalopram oxalate 10 mg tablet 10 mg PO QAM #90 tab 07/22/21 10/07/21 10/06/21 06:45 levothyroxine 25 mcg tablet 25 mcg PO QAM #90 tab 08/26/21 10/07/21 10/06/21 06:45 cyclobenzaprine 10 mg tablet 10 mg PO TID PRN #30 tab 09/04/21 10/07/21 Unknown tramadol 50 mg tablet 50 mg PO Q6H PRN #40 tab 09/18/21 10/07/21 10/07/21 05:30 clonazepam 0.5 mg tablet (Klonopin) 1 mg PO TID #180 tab 10/01/21 10/07/21 10/07/21 05:30 docusate sodium 100 mg tablet 100 mg PO DAILY PRN 10/01/21 10/07/21 10/05/21 08:00 (Stool Softener) linaclotide 290 mcg capsule 290 mcg PO QAM 10/01/21 10/07/21 10/06/21 06:45 (Linzess) nutritional supp - diet aids 1 tab PO QAM 10/01/21 10/07/21 10/06/21 06:45 ofloxacin 0.3 % ear drops 5 drp OTIC (EAR) QAM 10/01/21 10/07/21 10/06/21 06:45 fluticasone fur. 200 mcg-umeclid 1 inh INHALATION QAM #3 inhaler 10/06/21 10/07/21 10/06/21 06:30 62.5 mcg-vilant 25 mcg inhalat.powder (Trelegy Ellipta) tezepelumab-ekko 210 mg/1.91 mL 210 mg SUBCUT .COMPLEX #1.91 ml 10/08/21 Unknow n (110 mg/mL) subcutaneous syringe (Tezspire) Active Medications Generic Name Dose Route Start Last Admin Trade Name Freq PRN Reason Stop Dose Admin Hydrocodone Bitart/Acetaminophen 1 - 2 tab 10/07/21 12:13 10/07/21 22:13 Hydrocodone/Acetamophen 5/325mg Tab PO 10/21/21 12:12 1 tab Q4H PRN Administration Pain or Pre PT Azelastine HCl 1 sprays 10/08/21 09:00 10/08/21 08:24 Azelastine Hcl 0.1% Nasal 200 Sprays/27,400 Mcg Btl NA 11/07/21 08:59 1 sprays QAM SARAN Administration Docusate Sodium 100 mg 10/07/21 21:00 10/08/21 08:24 Docusate Sodium 100 Mg Cap PO 11/06/21 20:59 100 mg BID SARAN Administration Escitalopram Oxalate 10 mg 10/08/21 09:00 10/08/21 08:27 Escitalopram Oxalate 10 Mg Tab PO 11/07/21 08:59 10 mg QAM SARAN Administration Fluticasone Furoate 1 puffs 10/08/21 09:00 10/08/21 08:27 Fluticasone Furoate 200mcg 14 Puffs/Inhaler INH 11/07/21 08:59 1 puffs QAM SARAN Administration Levalbuterol HCl 1.25 mg 10/07/21 12:47 10/08/21 07:41 Levalbuterol Hcl 1.25 Mg/3 Ml Neb INH 11/06/21 12:46 1.25 mg Q4H PRN Administration SOB/WHEEZING Protocol Levothyroxine Sodium 25 mcg 10/08/21 06:30 10/08/21 06:01 Levothyroxine Sodium 25 Mcg Tablet PO 11/07/21 06:29 25 mcg DAILYBB SARAN Administration Linaclotide 290 mcg 10/08/21 09:00 10/08/21 08:25 Linaclotide 145 Mcg Capsule PO 11/07/21 08:59 290 mcg DAILY SARAN Administration Metoclopramide HCl 10 mg 10/07/21 12:13 10/07/21 22:13 Metoclopramide Hcl Inj 5 Mg/Ml 2 Ml Vial IV 11/06/21 12:12 10 mg Q6H PRN Administration Nausea And Vomiting Montelukast Sodium 10 mg 10/07/21 21:00 10/07/21 20:02 Montelukast Sodium 10 Mg Tablet PO 11/06/21 20:59 10 mg HS SARAN Administration Multivitamins 1 tab 10/08/21 09:00 10/08/21 08:26 Multivitamin Tab PO 11/07/21 08:59 1 tab QAM SARAN Administration Ofloxacin 5 drops 10/08/21 09:00 10/08/21 08:29 Ofloxacin 0.3% Otic Soln 5 Ml Btl OT 10/18/21 08:59 Not Given QAM SARAN Pantoprazole Sodium 40 mg 10/08/21 09:00 10/08/21 08:26 Pantoprazole 40 Mg Tab PO 11/07/21 08:59 40 mg QAM SARAN Administration Sennosides 17.2 mg 10/07/21 21:00 10/07/21 20:02 Senna 8.6 Mg Tab PO 11/06/21 20:59 17.2 mg HS SARAN Administration Tramadol HCl 50 mg 10/07/21 12:13 10/08/21 03:28 Tramadol Hcl 50 Mg Tablet PO 11/06/21 12:12 50 mg Q6H PRN Administration pain Umeclidinium/Vilanterol 1 puffs 10/08/21 09:00 10/08/21 08:27 Umeclidinium/Vilanterol 62.5/25mcg 7 Puffs/Inhaler INH 11/07/21 08:59 1 puffs DAILY SARAN Administration Verapamil HCl 120 mg 10/07/21 21:00 10/07/21 19:51 Verapamil Hcl 120 Mg Tabcr PO 11/06/21 20:59 Not Given HS SARAN Vitamin D 2,000 units 10/08/21 09:00 10/08/21 08:26 Cholecalciferol 1,000 Units 25 Mcg Tab PO 11/07/21 08:59 2,000 units QAM SARAN Administration NPO Date Last Intake of Fluids: 10/06/21 Time Last Intake of Fluids: 21:10 Last Intake of Fluids Comment: sip of water with meds today Date Last Intake of Solids: 10/06/21 Time Last Intake of Solids: 21:00 Past Medical History Medical History Abnormal gait Due to neuropathy Uses wheeled walker Allergic rhinitis Anemia Iron d/c'ed approximately 1week ago per PCP instructions per patient Bronchiectasis FOLLOWS WITH PULMONARY--multiple inhalers/nebulizer Chronic deep vein thrombosis of popliteal vein Per pt has been behind left knee for last 3yrs, 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--on Xarelto- stable - surgeon aware and feels okay to proceed Chronic reflux esophagitis COPD (chronic obstructive pulmonary disease) Dextroscoliosis Esophageal spasm Tx with verapamil Fracture of maxillary sinus with routine healing Pt states d/t fall off mobility scooter happened summer--no surgery, has healed GERD (gastroesophageal reflux disease) On pantoprazole H/O lymphopenia History of malaria 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, 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 Hx pulmonary embolism (~2016) Reason for Xarelto daily Hypothyroidism Mastoiditis, chronic Mixed hearing loss, bilateral Does wear bilateral hearing aids Nausea and vomiting after administration of anesthetic agent Neuropathy In bilateral arm and leg, pt states he ambulates with a wheeled walker On home oxygen therapy 2L via Bipap every night ÁNGEL (obstructive sleep apnea) On BiPAP Osteoporosis Pectus excavatum Tremor Right hand Vocal cord dysfunction Past Family History Family History Mother Osteoporosis Father Prostate cancer Coronary heart disease Unknown Prostate cancer Grandmother (Paternal) Family history of diabetes mellitus Other Allergies Asthma Cancer Diabetes Hearing loss Heart disease No family history of adverse response to anesthesia No family history of bleeding disorder Stroke Denies family history of Hypertension Past Surgical History Surgical History History of bilateral cataract extraction History of bronchoscopy multiple History of cardiac cath (~04/15/20) 2019 @ [facility] d/t experiencing chest pain--No stents placed History of colonoscopy 09/2020 repeat 3 yrs History of ear surgery X4 History of esophagogastroduodenoscopy (EGD) last 03/10/21 @ [facility] History of placement of ear tubes 12/26/2020 LMA#5. No postop issues per anesthesia progress note. History of tooth extraction Hx of hemorrhoidectomy S/P total hip arthroplasty Right. 10/11/2018: SAB at L3-L4. Anesthesia post-op progress note: hypotensive and tachycardic intraoperatively with over 700 ml of blood loss. He was given one unit of PRBC in the OR. In PACU, he was given 2000 ml of LR in PACU which caused HR to come down to the 70s from 110s and SBP to the 90s up from the 80s. His postop hgb was 9.[address] Perry is aware. The patient is otherwise awake and comfortable. Social History Smoking Status: Never smoker Do You Dip or Chew Tobacco: No Hx Alcohol Use: No Hx Substance Use: No substance use type: does not use Physical Exam Vital Signs Last Vital Signs Temp 98.1 F 10/08/21 07:50 Pulse 95 H 10/08/21 07:50 Resp 18 10/08/21 07:50 BP 113/66 10/08/21 07:50 Pulse Ox 94 10/08/21 07:50 Testing Laboratory Results 10/08/21 07:29 10/08/21 07:29 Electrocardiogram Date: 09/03/21 Findings: + NSR @ (91bpm) Normal EKG per cardio. When compared to EKG from February 19, 2021- QRS axis shifted left, minimal criteria for inferior infarct are no longer present, non specific change in ST segment in inferior leads per cardio. Chest X-Ray Date: 09/03/21 Cardiomegaly with prominence of the pulmonary vasculature. Correlate clinically for evidence of fluid overload/congestive failure. Bibasilar opacities likely represent scarring/atelectasis. Clinical correlation will be required. Echocardiogram Date: 04/16/20 EF: 50-55% LV Function: normal RWMA: + none Other Findings: + diastolic dysfunction (Grade I ); no LVH Valvular Disease: + no significant valvular disease Compared to study from 09/18/19, no significant change Stress Test Date: 09/19/19 Type: DSE Resting EF: 60-65% Resting LV Function: normal Resting RWMA: + none Valvular Disease: no significant valvular disease Normal pharmacologic stress ECHO. No ECHO or EKG evidence of myocardial ischemia having achieved heart rate adequate for diagnostic purposes. No arrhythmias were noted with stress Mild dilated RV. Mild to moderate RVH. Grade I DD. Cardiac Catheterization Date: 04/15/20 Right Heart Catheterization Conclusions: Normal intrapulmonary and intracardiac pressures. No pulmonary hypertension Normal pulmonary capillary wedge pressure Normal cardiac output Pulmonary Function Test Date: 02/25/21 Mild proportional reduction in both FEV1 and FVC with a reduced ratio however review of flow volume loops reveal severely truncated expiratory limbs possibly consistent with patient's diagnosis of vocal cord dysfunction. Assessment of neuromuscular strength revealed reduction in MVV MIP and MEP. Clinical correlation is recommended. Other Testing Chest CTA 09/03/21= There is no evidence of pulmonary embolus in the main, lobar, or segmental pulmonary arteries. There is no airspace consolidation or pleural effusion. Mild cardiomegaly. Left LE venous doppler 09/03/21= Partially occlusive thrombus is noted within the mid to distal popliteal vein with occlusive thrombus within one of the duplicated posterior tibial veins within the proximal to mid segments. There is otherwise normal compressibility, flow, and augmentation within the left lower extremity deep venous system. Brain MRI 09/19/19 = No acute intracranial abnormality. No abnormal enhancement. There are a few scattered punctate foci of T2/FLAIR prolongation within the subcortical white matter of the bilateral frontal hemispheres, likely of no clinical significance. Differential considerations would include gliosis from chronic migraines versus early chronic microvascular ischemic disease.
--- NOTE | 2021-10-08 13:12 | History & Physical Bridge Note ---
Date of Service October 08, 2021 History & Physical Bridge Note I have examined the patient, reviewed the History & Physical and in the interval since the performance of the History & Physical I have noted the following changes of clinical significance: no changes noted
[2021-10-08] MEDS ORDERED: ceFAZolin 2,000 MG/15 ML IV PUSH IV ONE (13:40)
[2021-10-08] MEDS ORDERED: ceFAZolin 2000MG 2,000 MG/15 ML SYR IV ONE (13:41)
[2021-10-08] MEDS ORDERED: ATROPINE SULFATE 0.1 MG/ML 10ML SYR IV PRN (13:42)
[2021-10-08] MEDS ORDERED: ONDANSETRON INJ 2 MG/ML 2 ML VIAL IV PRN (13:42)
[2021-10-08] MEDS ORDERED: fentaNYL citrate 100 MCG/2 ML VIAL ONE (13:42)
[2021-10-08] MEDS ORDERED: fentaNYL citrate 100 MCG/2 ML VIAL IV PRN (13:42)
[2021-10-08] MEDS ORDERED: MIDAZOLAM HCL 1 MG/ML 2ML VIAL ONE (13:42)
[2021-10-08] MEDS ORDERED: ePHEDrine sulfate 50 MG/ML AMP IV PRN (13:42)
[2021-10-08] MEDS ORDERED: KETAMINE 50 MG/5 ML SYRINGE ONE (13:46)
[2021-10-08] MEDS ORDERED: ONDANSETRON INJ 2 MG/ML 2 ML VIAL ONE (13:49)
[2021-10-08] MEDS ORDERED: PROPOFOL IV EMULSION 10 MG/ML 20 ML VIAL IV ONE ×2 (13:49→15:12)
[2021-10-08] MEDS ORDERED: GLYCOPYRROLATE 0.2 MG/ML VIAL ONE (13:49)
[2021-10-08] MEDS ORDERED: LIDOCAINE 2% 2 ML VIAL/AMP(20MG/ML) INFIL ONE (13:49)
[2021-10-08] MEDS ORDERED: DEXAMETHASONE SOD INJ 4 MG/ML VIAL ONE (13:49)
[2021-10-08] MEDS ORDERED: BUPIVACAINE 0.5 % 5 MG/1 ML PF 10ML VIAL ONE (13:50)
[2021-10-08] MEDS ORDERED: PHENYLEPHRINE HCL 10 MG/ML VIAL ONE (14:42)
--- NOTE | 2021-10-08 15:58 | Fluoroscopy Report ---
FL femur LT 2V CLINICAL HISTORY: Left stent exchange of the femoral component of left total hip replacement COMPARISON STUDY: 10/07/2021 FLUOROSCOPY TIME: 9 seconds. FLUOROSCOPIC IMAGES: 3 FINDINGS: Compared to the previous study, there has been interval placement of a long stem femoral co mponent of the patient's left total hip replacement. A cerclage wire seen surrounding the femoral sha ft in the subtrochanteric region. No acute osseous pathology is identified. IMPRESSION: Status post placement of a longstem femoral component. ACT 112: Negative or not required by law. Electronically signed by: Dany Bhatti M.D. 10/08/2021 3:57 PM
--- NOTE | 2021-10-08 16:06 | Operative Report ---
PG Post Operative Report Pre & Post Diagnosis Operation Date: 10/07/21 09:00 Pre-Op Diagnosis: Left Degenerative Joint Disease, Avascular Necrosis Post-Op Diagnosis: Left Degenerative Joint Disease, Avascular Necrosis Operation Date: 10/08/21 09:15 Pre-Op Diagnosis: Left proximal femoral periprosthetic fracture with subsidence of the implant Post-Op Diagnosis: Left proximal femoral periprosthetic fracture with subsidence of the implant I identified the patient and participated in the time-out.: Yes Procedure Operation Date: 10/07/21 09:00 Actual Procedures p Left Anterior Total Hip Arthroplasty, Uncemented(Left) - Marco Perry DO Operation Date: 10/08/21 09:15 Actual Procedures p Revision Left Hip Arthroplasty(Left) - Marco Perry DO Surgeon Marco Perry DO Salvage Mend Worker Marco Lyn PAC Estimated Blood Loss 200 Findings Consistent with Post-Op Diagnosis Specimens None Complications none Disposition Disposition: Recovery Room Primo Andre is a pleasant 46-year-old male who underwent a left hip replacement yesterday. Initial postoperative x-rays look fine. He was ambulating overnight and was very happy because his hip felt well. Unfortunately he then took a step and had sudden pain in his hip down to his knee. When I saw him on rounds this morning he was complaining of left knee pain. I quickly obtained and x-ray of his left hip and his left knee. The x-ray of his hip showed some subsidence of the collared implant with a periprosthetic femur fracture. I held his Xarelto immediately and made him n.p.o. The decision was made to remove the stem and convert him to a diaphyseal fitting stem later today. Description of Procedure Implants used: I used a Biomet Darya modular stem with a size 21 x 150 distal stem with a size 70 mm B metaphyseal implant and a 40 mm +3 femoral head. On October 08, 2021 Nikhil was brought down from his hospital room to the preopera tive holding area. The operative extremity was identified and signed. He was given a preoperative antibiotic and a spinal anesthetic. He was taken back to the operating room and laid on the table in supine position. He was given basic sedation. The left leg was then brought out to a Purist leg positioner. The left hip was then prepped and draped in sterile fashion. A timeout was done. The patient and the operative extremity was properly identified. The previous anterior incision was opened back up. It was extended a little bit distally. Dissection was taken down through the previous interval and all sutures were removed. The proximal femur was exposed. A Alma Delia Biomet cable ready cable was then passed around the proximal femur. This was to ensure there was no propagation of of any fractures. The cable was tightened. Single fluoroscopic images showed anatomic alignment. The hip was then dislocated. The femoral head was then removed. The femoral stem was removed. There was a fracture of the posterior wall of the proximal femur. It was basically just thin cortical bone that was hinging. Sequential reaming for a modular Darya stem was done. A final 21 x 150 mm distal stem was then impacted into place. I was able to get an excellent press-fit. A trial size B 70 mm metaphyseal stem was then placed. A +3 x 40 mm femoral head was trialed. The hip was then red uced. Fluoroscopic images showed near anatomic alignment. I was able to get good stability of the hip. The hip was then dislocated. The trials were removed. The final size B 70 mm metaphyseal stem was then impacted into place. The locking screw was placed. The final size 40 mm ceramic head with a +3 neck was then impacted into place. The hip was then reduced. Final fluoroscopic images showed near anatomic alignment. There was only a fracture of the posterior wall of the proximal femur. There was not enough to consider any kind of operative fixation. The wound was then irrigated. The capsule was then closed with #1 Vicryl suture. A 3-minute Betadine lavage was then done. The fascia was then closed with 0 PDS suture. Skin was closed with 2-0 Vicryl and anaid. A soft dressing was placed. He was then transferred to a hospital bed and taken to the postanesthesia care unit in stable condition. He tolerated the procedure well. \Marco Lyn PA-C, was present for the entire procedure. He was critical for patient positioning, prepping, draping, retraction exposure, wound closure and application of sterile dressing. I attest to the content of the Intraoperative Record and any orders documented therein. Any exceptions are noted below.
--- NOTE | 2021-10-08 16:38 | Anesthesiology Progress Note ---
Date of Service October 08, 2021 Anesthesia Post Procedure Vital Signs Vital Signs: Temp Pulse Pulse Resp BP Pulse Ox 10/08/21 16:30 97 H 18 115/80 92 10/08/21 16:20 115 H 23 110/89 92 10/08/21 16:11 98.6 F 107 H 14 120/77 93 10/08/21 13:44 98.4 F 92 H 22 106/78 92 10/08/21 07:50 98.1 F 95 H 18 113/66 94 10/08/21 07:42 90 17 96 10/08/21 02:50 97.9 F 85 18 116/60 93 10/07/21 21:17 110/60 10/07/21 19:46 95/48 L 10/07/21 19:14 100 H 106/55 L 10/07/21 19:03 97.9 F 87 18 87/62 L 92 Pain Intensity Left Hip: Pain Intensity: 4 Transfer of Care Handoff Completed per policy Notes Mental Status: alert / awake / arousable and participated in evaluation Patient Amnestic to Procedure: Yes Nausea / Vomiting: adequately controlled Pain: adequately controlled Airway Patency, RR, SpO2: stable & adequate BP & HR: stable & adequate Hydration State: stable & adequate Neuraxial Anesthesia: was administered and sensory block is resolving Anesthetic Complications: no major complications apparent and Pt Satisfied with anesthetic care
[2021-10-08] MEDS ORDERED: bisacodyL 10 MG SUPP PR PRN (16:55)
[2021-10-08] MEDS ORDERED: NON-FORMULARY MEDICATION (Docusate Sodium [Stool Softener] 100 mg Tablet) PO PRN (16:55)
[2021-10-08] MEDS ORDERED: HYDROmorphone INJ 0.5 MG/0.5 ML SYR IV PRN (16:55)
[2021-10-08] MEDS ORDERED: DICLOFENAC SOD 1% GEL 100 GM TUBE EXT PRN (16:55)
[2021-10-08] MEDS ORDERED: METOCLOPRAMIDE HCL INJ 5 MG/ML 2 ML VIAL IV PRN (16:55)
[2021-10-08] MEDS ORDERED: NALOXONE HCL 0.4 MG/1 ML VIAL/CARP IV PRN (16:55)
[2021-10-08] MEDS ORDERED: MAGNESIUM HYDROXIDE SUSP 30 ML UDC PO PRN (16:55)
--- NOTE | 2021-10-08 17:07 | XRay Report ---
XR hip 1V LT w pelvis CLINICAL HISTORY: IN PACU - A/P PELVIS and LATERAL HIP TECHNIQUE: 2 views of the left hip and single frontal view of the pelvis were obtained. Comparison: None available at the time of this dictation. FINDINGS: Interval placement of a wire surrounding the proximal femur. Bilateral total hip arthroplasties again noted. Expected postsurgical appearance of soft tissue swelling and subcutaneous emphysema. The alig nment is anatomic. Joint spaces are well-preserved. No soft tissue abnormality is seen. IMPRESSION: Postsurgical appearance status post wire placement. ACT 112: Negative or not required by law. Electronically signed by: Trace Fontaine M.D. 10/08/2021 5:06 PM
[2021-10-08] MEDS: SODIUM CHLORIDE 0.9% 1000ML 1,000 ML IV SCH (18:31)
[2021-10-08] MEDS: VERAPAMIL HCL 120 MG TABCR PO SCH (20:33)
[2021-10-08] MEDS: ONDANSETRON INJ 2 MG/ML 2 ML VIAL IV PRN (20:53)
[2021-10-08] MEDS: MONTELUKAST SODIUM 10 MG TABLET PO SCH (20:54)
[2021-10-08] MEDS: HYDROCODONE/ACETAMOPHEN 5/325MG TAB PO PRN (20:55)
[2021-10-08] MEDS ORDERED: SENNA 8.6 MG TAB PO SCH (21:00)
[2021-10-09] MEDS: HYDROCODONE/ACETAMOPHEN 5/325MG TAB PO PRN ×2 (03:36→07:51)
[2021-10-09] MEDS: ONDANSETRON INJ 2 MG/ML 2 ML VIAL IV PRN (03:36)
[2021-10-09] MEDS: LEVOTHYROXINE SODIUM 25 MCG TABLET PO SCH (04:32)
[2021-10-09] MEDS: SODIUM CHLORIDE 0.9% 1000ML 1,000 ML IV SCH (04:33)
[2021-10-09] MEDS: ceFAZolin 2000MG 2,000 MG/15 ML SYR IV SCH (05:30)
[2021-10-09 06:52] LABS: Hematocrit (blood only) 32.3 % (42-52); Hemoglobin 10.6 g/dL (14.0-18.0); Immature Granulocytes # (auto) 0.02 K/uL (0.00-0.02); Immature Granulocytes % (auto) 0.3 %; Lymphocytes # (auto) 0.52 K/uL (1.2-3.4); Mean Corpuscular Hemoglobin 31.1 pg (25-34); Mean Corpuscular Hgb Conc 32.8 g/dL (32-36); Mean Corpuscular Volume 94.7 fL (80-100); Mean Platelet Volume 9.7 fL (7.4-10.4); Monocytes # (auto) 0.69 K/uL (0.11-0.59); Monocytes % (auto) 9.2 %; Neutrophils # (auto) 6.25 K/uL (1.4-6.5); Neutrophils % (auto) 83.5 %; Platelet Count 128 K/uL (130-400); RDW Coefficient of Variation 15.8 % (11.5-14.5); RDW Standard Deviation 54.9 fL (36.4-46.3); Red Blood Count 3.41 M/uL (4.7-6.1); White Blood Count 7.48 K/uL (4.8-10.8)
[2021-10-09 07:22] LABS: BUN Creatinine Ratio 27.7 (10-20); Calcium 7.2 mg/dl (8.5-10.1); Creatinine Clr Calc Pharmacy 149.6 ml/min; Est GFR (African American) 134.3 ml/min; Est GFR (Non-African American) 115.9 ml/min; Potassium 3.9 mmol/L (3.5-5.1)
[2021-10-09] MEDS: LEVALBUTEROL HCL 1.25 MG/3 ML NEB INH PRN (07:32)
[2021-10-09] MEDS: UMECLIDINIUM/VILANTEROL 62.5/25MCG 7 PUFFS/INHALER INH SCH (07:52)
[2021-10-09] MEDS: FLUTICASONE FUROATE 200MCG 14 PUFFS/INHALER INH SCH (07:52)
[2021-10-09] MEDS: PANTOprazole 40 MG TAB PO SCH (08:00)
[2021-10-09] MEDS ORDERED: dexAMETHasone 4 MG TAB PO SCH (08:00)
[2021-10-09] MEDS: AZELASTINE HCL 0.1% NASAL 200 SPRAYS/27,400 MCG BTL SCH (08:01)
[2021-10-09] MEDS: DOCUSATE SODIUM 100 MG CAP PO SCH (08:01)
[2021-10-09] MEDS: LINACLOTIDE 145 MCG CAPSULE PO SCH (08:01)
[2021-10-09] MEDS: ESCITALOPRAM OXALATE 10 MG TAB PO SCH (08:01)
[2021-10-09] MEDS: OFLOXACIN 0.3% OTIC SOLN 5 ML BTL OT SCH (08:02)
--- NOTE | 2021-10-09 08:52 | Orthopedic Progress Note ---
Date of Service October 09, 2021 Assessment & Plan (1) Status post left hip replacement: Overall is doing very well. Is not having too much pain in the left hip. He is going to be touch toe weightbearing for the next 6 weeks. He will be seen by physical therapy today for touch toe training and range of motion exercises. He is on Xarelto for DVT prophylaxis. He can be discharged to home later today. Elena Andre was seen and examined at bedside this morning. Overall is doing very well. He was actually sitting in chair at bedside. He says his leg feels much much better. He has been touchdown weightbearing with the nursing staff. He has no complaints. Review of Systems All systems reviewed & are unremarkable except as noted in HPI & below. Physical Exam On physical examination of left hip, the dressing is clean and dry. He is active dorsiflexion plantarflexion of his left ankle. Sensation is intact throughout.. Results & Data Results & Data Laboratory Results . Diagnostic Findings Postoperative x-rays of the left hip show the prosthesis to be in anatomic alignment without any evidence of subsidence. PG Care Time/CCT Total # of Minutes Spent Total Time Spent with Patient: Total time spent is greater than 50% in coordination of care (as documented) at patient's floor/unit and/or counseling patient: Coding Level of Care Code 04761 Post Operative Follow-Up Diagnoses Status post left hip replacement Z96.642
--- NOTE | 2021-10-09 08:55 | Discharge Summary ---
Date of Service October 09, 2021 Principal Diagnosis Same as "Discharge Diagnosis" noted below under Discharge Instructions. Discharge Exam On physical examination of left hip, the dressing is clean and dry. He is active dorsiflexion plantarflexion of his left ankle. Sensation is intact throughout.. Discharge Data Procedures Performed Operation Date: 10/07/21 09:00 Actual Procedures p Left Anterior Total Hip Arthroplasty, Uncemented(Left) - Marco Perry DO Operation Date: 10/08/21 09:15 Actual Procedures p Revision Left Hip Arthroplasty(Left) - Marco Perry DO Ordered Studies 10/07/21 09:00 FL hip LT 1V Routine 10/08/21 14:00 FL femur LT 2V Routine Hospital Course (1) Status post left hip replacement: On October 07, 2021 Thai arrived at [facility] and underwent a left total hip arthroplasty without complication. He had a spinal anesthetic. Postoperatively he was transferred to the general orthopedic floors. On the night of surgery he was up and walked around to the bathroom without any pain. He was very optimistic about his outcome. He was then up going to the bathroom in the middle the night when he began having severe left knee pain and mild left hip pain. He had difficult time even get back to bed. When I saw him the following morning, I ordered an urgent x-ray of his left hip and his left knee. The x-rays of his hip showed subsidence of the femoral stem and a possible periprosthetic proximal femur fracture. I immediately held his Xarelto and placed him on the operative schedule for the afternoon for a revision to a diaphyseal fitting prosthesis. On October 08 he was taken back to the operating room. The previous femoral stem was removed and a diaphyseal fitting stem was placed. There was a hinging fracture of the posterior wall. Postoperatively he was started back on his Xarelto and transferred back to the general orthopedic floors. On postop day #1 he was feeling much better. He was having minimal ally n in his leg or his hip. He was seen by physical therapy and was compliant with touch toe weightbearing guidelines. He was then discharged to home. He will follow with orthopedics in 2 weeks. PG Care Time/CCT Total # of Minutes Spent Total Time Spent with Patient: Total time spent is greater than 50% in coordination of care (as documented) at patient's floor/unit and/or counseling patient: Discharge Plan Discharge Items Patient Disposition: Home - Home Health Services Reason For Visit: Left Degenerative Joint Disease, Avascular Necrosi Discharge Diagnosis: Left hip replacement Activity: As commented below Non-emergency contact: Surgeon Call non-emergency contact if: your wound has increased redness and your wound has increased drainage Follow-up/Referrals: Marco Lantigua DO [Primary Care Provider] - Diet: Regular Addtl Attending Provider Instructions: Activity and Therapy Recommendations: * If you are using [facility] then therapy will be provided at your home until they feel you have accomplished all of your goals. * If you are using [facility] then Physical Therapy will be provided until they feel you are ready to start Outpatient Physical Therapy. * If you are not using home therapy then Outpatient Physical Therapy should start about 3-5 days from your day of surgery. Therapy will last about 6-10 weeks * You will be toe-touch weightbearing on your left leg for about 6 weeks. Medications: * Narcotic- You will likely be sent home from the hospital with a prescription for the narcotic pain medication that worked best throughout your stay. * Xarelto- continue taking your Xarelto daily for DVT prophylaxis * Other medications may be prescribed for specific circumstances. If you have any questions, please call the office at . * Resume previous home medications unless otherwise instructed TEDs/Elastic Stockings: The white elastic stockings help limit swelling and prevent blood clots from forming in your legs. The more you wear them, the more they work. Wear them for six weeks. Dressing Care: Leave the Silverlon dressing in place for 7 days. After 7 days you may remove the dressing. If the incision is not draining then you may leave the anaid open to air. If there is a little bit of drainage or if the anaid are getting stuck on your clothing then cover the incision with a dry dressing. The anaid will be removed at your 2 week follow-up appointment. Showering: You may shower with the Silverlon dressing in place. Do not let the shower spray hit the dressing directly. Pat the Silverlon dressing dry. If the dressing becomes wet underneath, then simply remove the dressing. Keep the incision dry until you are 7 days out from the day of surgery. After 7 days you may remove the Silverlon dressing and shower with the anaid exposed. Let soapy water run over the anaid and pat them dry. Do not scrub or soak the incision. Things To Watch For: * Drainage from the incision site that occurs more than one week after your surgery. * Increased redness at the incision site. * Fever above 102 degrees Fahrenheit. * Unusual chest pain or shortness of breath. * Call [facility] at with any of the above problems Follow-Up Visit: Follow-up with Dr. Perry's PA (Marco Lyn) 2-3 weeks after your day of surgery. He will remove your anaid and answer any questions. If you have any additional questions or concerns, Dr Perry is usually in the office at the same time and will be available An appointment was probably scheduled when you signed-up for surgery in the office. If you have any questions call Office Instructions: More detailed instructions as well as Frequently Asked Questions were provided in a folder by our office when you signed-up for surgery. Please review these instructions when you get home. If you have any further questions or concerns, please feel free to call the office at [phone] Pending Studies at Discharge: No Stand-Alone Forms: [facility] Medications and DC Order Prescriptions: New hydrocodone-acetaminophen 5-325 mg tablet 1 tab PO Q6H PRN (Reason: pain) Qty: 40 RF: 0 ondansetron 4 mg tablet,disintegrating 4 mg PO Q8H PRN (Reason: nausea and vomiting) Qty: 10 RF: 0 Continued levalbuterol tartrate 45 mcg/actuation HFA aerosol inhaler 2 puffs INHALATION Q4H PRN (Reason: Shortness Of Breath Or Wheezing) Qty: 45 RF: 1 levalbuterol HCl 1.25 mg/3 mL solution for nebulization 1.25 mg INH Q4H Qty: 540 RF: 1 amoxicillin 500 mg tablet 2,000 mg PO UD PRN (Reason: prior to procedures) Qty: 4 RF: 3 (DME) Wheeled Walker Misc See Rx Instructions .Route Qty: 1 RF: 0 pantoprazole 40 mg tablet,delayed release (DR/EC) 40 mg PO QAM Qty: 90 RF: 1 montelukast [Singulair] 10 mg tablet 10 mg PO HS Qty: 90 RF: 1 Xarelto 20 mg tablet 20 mg PO QAM Qty: 90 RF: 1 escitalopram oxalate 10 mg tablet 10 mg PO QAM Qty: 90 RF: 3 levothyroxine 25 mcg tablet 25 mcg PO QAM Qty: 90 RF: 3 tramadol 50 mg tablet 50 mg PO Q6H PRN (Reason: pain) Qty: 40 RF: 0 Tezspire 210 mg/1.91 mL (110 mg/mL) syringe 210 mg subcut .COMPLEX Qty: 1.91 RF: 11 clonazepam [Klonopin] 0.5 mg tablet 1 mg PO TID Qty: 180 RF: 0 cyclobenzaprine 10 mg tablet 10 mg PO TID PRN (Reason: muscle spasm) Qty: 30 RF: 0 verapamil 120 mg tablet extended release 120 mg PO HS Qty: 30 RF: 2 ascorbic acid (vitamin C) 500 mg tablet 1,000 mg PO QAM RF: 0 cholecalciferol (vitamin D3) 2,000 unit capsule 2,000 units PO QAM RF: 0 omega-3 fatty acids [Fish Oil Concentrate] 1,000 mg capsule 1,000 mg PO QAM RF: 0 Trelegy Ellipta 200-62.5-25 mcg blister with device 1 inh inhalation QAM Qty: 3 RF: 1 multivitamin Tablet 1 tab PO QAM RF: 0 azelastine 137 mcg (0.1 %) aerosol,spray 1 spray Intranasal QAM RF: 0 calcium carbonate-vitamin D3 [Calcium 600 + D(3)] 600 mg(1,500mg) -400 unit Tablet 1 tab PO BID RF: 0 epinephrine [EpiPen 2-Dustin] 0.3 mg/0.3 mL auto-injector 0.3 mg IM Q15M PRN (Reason: Anaphylaxis) RF: 0 Prolia 60 mg/mL Syringe 60 mg subcut Q6M RF: 0 diclofenac sodium 1 % Gel 4 g TOPICAL BID PRN (Reason: Pain) RF: 0 ofloxacin 0.3 % drops 5 drp otic (ear) QAM RF: 0 Linzess 290 mcg capsule 290 mcg PO QAM RF: 0 Fiber-Tab Tablet 1 tab PO QAM RF: 0 docusate sodium [Stool Softener] 100 mg Tablet 100 mg PO DAILY PRN (Reason: Constipation) RF: 0 Discharge Orders: Discharge Order (Routine); Ordered 10/09/21 Ordered By: Marco Perry Admission Data Admit Date/Time: 10/07/21 11:19 Attending Provider: Marco Perry Admit Provider: Marco Perry Primary Care Provider: Marco Lantigua Other Providers: [facility]
[2021-10-09] MEDS ORDERED: RIVAROXABAN 20 MG TAB PO SCH (09:00)
[2021-10-09] MEDS ORDERED: NON-FORMULARY MEDICATION (Multivitamin Tablet) PO SCH (09:00)
[2021-10-09] MEDS ORDERED: MULTIVITAMIN TAB PO SCH (09:00)
== END 2021-10-09 11:29 | disposition home health service (06) ==
LOC: PACUINP 06:16 → ASU 06:16 → 3E 15:06

== ENCOUNTER 2023-01-01 13:36 | Inpatient (IN) ==
[2023-01-01] MEDS ORDERED: MoRPHine SULFATE 2 MG/ML CARP IV STA (14:05)
--- NOTE | 2023-01-01 14:12 | Emergency Department Note ---
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 It is worse with breathing or moving. No injury or trauma he did rec ently see his primary doctor he has been having left-sided back pain and started a muscle relaxer on Tuesday. No lower extremity pain he has some chronic intermittent trace edema. He is feel little more short of breath over the last couple days. No cough or otherwise recent illness.no fever. He has a history of a PE in the past and is on Xarelto. He also has a history of chronic bronchiectasis and takes inhalers Home Medications Medication Instructions Recorded Confirmed Type calcium carbonate 600 mg-vitamin 1 tab PO BID 09/05/18 01/01/23 History D3 10 mcg (400 unit) tablet (Calcium 600 + D(3)) multivitamin 1 tab PO QAM 09/05/18 01/01/23 History diclofenac sodium 1 % topical gel 4 g topical BID PRN Pain 01/13/19 01/01/23 History ascorbic acid (vitamin C) 500 mg 1,000 mg PO QAM 03/27/19 01/01/23 History tablet cholecalciferol (vitamin D3) 50 2,000 units PO QAM 03/27/19 01/01/23 History mcg (2,000 unit) capsule epinephrine 0.3 mg/0.3 mL 0.3 mg IM Q15M PRN Anaphylaxis 09/17/19 01/01/23 History injection, auto-injector (EpiPen 2-Dustin) levalbuterol tartrate 45 2 puffs inhalation Q4H PRN 02/28/20 01/01/23 Rx mcg/actuation aerosol inhaler Shortness Of Breath Or Wheezing #45 grams Wheeled Walker #1 ea 02/26/21 12/28/22 Rx fluticasone fur. 200 mcg-umeclid 1 inh inhalation QAM #3 Inhalers 10/06/21 01/01/23 Rx 62.5 mcg-vilant 25 mcg inhalat.powder (Trelegy Ellipta) denosumab 60 mg/mL subcutaneous 60 mg subcut .every 6 months 02/09/22 01/01/23 History syringe (Prolia) alpha lipoic acid 600 mg tablet 600 mg PO DAILY 03/18/22 01/01/23 History verapamil 120 mg tablet,extended 120 mg PO HS #90 tabs 03/18/22 01/01/23 Rx release pantoprazole 40 mg tablet,delayed 40 mg PO QAM #90 tabs 05/26/22 01/01/23 Rx release plecanatide 3 mg tablet (Trulance) 3 mg PO DAILY #90 tabs 06/29/22 01/01/23 Rx mupirocin 2 % topical ointment 1 applic topical BID #22 grams 07/06/22 01/01/23 Rx rivaroxaban 20 mg tablet (Xarelto) 20 mg PO QAM #90 tabs 08/06/22 01/01/23 Rx mometasone 50 mcg/actuation nasal 2 spray intranasal DAILY PRN 08/10/22 01/01/23 History spray Congestion fluticasone propionate 50 2 spray intranasal DAILY PRN 08/25/22 01/01/23 History mcg/actuation nasal Congestion spray,suspension (Flonase Allergy Relief) tramadol 50 mg tablet 50 mg PO Q8H PRN pain #30 tabs 09/08/22 01/01/23 Rx duloxetine 60 mg capsule,delayed 60 mg PO DAILY #90 caps 10/12/22 01/01/23 Rx release ofloxacin 0.3 % ear drops 5 drp otic (ear) BID #10 mL 10/12/22 01/01/23 Rx docusate sodium 100 mg tablet 100 mg PO BID PRN Constipation 10/28/22 01/01/23 History (Stool Softener) levalbuterol HCl 1.25 mg/3 mL 1.25 mg inhalation Q4H 10/28/22 01/01/23 History solution for nebulization levothyroxine 50 mcg tablet 50 mcg PO QAM #90 tabs 10/28/22 01/01/23 Rx Tezspire 210 mg/1.91 mL (110 210 mg (1.91 mL) subcut .COMPLEX 11/02/22 01/01/23 Rx mg/mL) subcutaneous syringe #1.91 mL (tezepelumab-ekko) clonazepam 0.5 mg tablet (Klonopin) 1 mg PO BID PRN anxiety #120 tabs 11/22/22 01/01/23 Rx gabapentin 100 mg capsule 100 mg PO BID #60 caps 12/16/22 01/01/23 Rx methocarbamol 750 mg tablet 750 mg PO TID PRN muscle spasm #30 12/28/22 01/01/23 Rx tabs omega-3 fatty acids 1,000 mg 1,000 mg PO QAM 01/01/23 01/01/23 History capsule Allergies Allergy/AdvReac Type Severity Reaction Status Date / Time gluten Allergy Intermediate STOMACH Verified 01/01/23 16:04 ISSUES ciprofloxacin AdvReac Intermediate issue with Verified 01/01/23 16:04 legs oxycodone AdvReac Intermediate GI upset Verified 01/01/23 16:04 Past Med/Surg History Medical History Abnormal gait Due to neuropathy Uses wheeled walker Allergic rhinitis Anemia Iron d/c'ed approximately 1week ago per PCP instructions per patient Bronchiectasis FOLLOWS WITH PULMONARY--multiple inhalers/nebulizer Chronic deep vein thrombosis of popliteal vein Per pt has been behind left knee for last 3yrs, has seen cement sack breaker regarding this--on Xarelto- stable - surgeon aware and feels okay to proceed Chronic reflux esophagitis CMT (Wbqaojm-Xhfpw-Nigpb disease) COPD (chronic obstructive pulmonary disease) Dextroscoliosis Esophageal spasm Tx with verapamil Fracture of maxillary sinus with routine healing Pt states d/t fall off mobility scooter happened summer--no surgery, has healed GERD (gastroesophageal reflux disease) On pantoprazole H/O lymphopenia History of malaria 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, 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 Hx pulmonary embolism (~2015) Reason for Xarelto daily Hypothyroidism Mastoiditis, chronic Mixed hearing loss, bilateral Does wear bilateral hearing aids Nausea and vomiting after administration of anesthetic agent Neuropathy In bilateral arm and leg, pt states he ambulates with a wheeled walker On home oxygen therapy 2L via Bipap every night ÁNGEL (obstructive sleep apnea) On BiPAP Osteoarthritis Osteoporosis Pectus excavatum Pulmonary hypertension Right ventricular enlargement Tremor Right hand Vocal cord dysfunction Surgical History History of bilateral cataract extraction History of bronchoscopy multiple History of cardiac cath (~04/15/20) 2019 @ [facility] d/t experiencing chest pain--No stents placed History of colonoscopy 09/2020 repeat 3 yrs History of ear surgery X4 History of esophagogastroduodenoscopy (EGD) last 03/10/21 @ [facility] History of placement of ear tubes 12/26/2020 LMA#5. No postop issues per anesthesia progress note. History of tooth extraction Hx of hemorrhoidectomy S/P total hip arthroplasty Right. 10/11/2018: SAB at L3-L4. Anesthesia post-op progress note: hypotensive and tachycardic intraoperatively with over 700 ml of blood loss. He was given one unit of PRBC in the OR. In PACU, he was given 2000 ml of LR in PACU which caused HR to come down to the 70s from 110s and SBP to the 90s up from the 80s. His postop hgb was 9.[address] Perry is aware. The patient is otherwise awake and comfortable. Family History Mother Osteoporosis Father Prostate cancer Coronary heart disease Unknown Prostate cancer Grandmother (Paternal) Family history of diabetes mellitus Other Allergies Asthma Cancer Diabetes Hearing loss Heart disease No family history of adverse response to anesthesia No family history of bleeding disorder Stroke Denies family history of Hypertension Social History Smoking Status: Never smoker Second Hand Exposure: No; Do You Dip or Chew Tobacco: No; Hx Alcohol Use: No Hx Substance Use: No Preferred Language: Singaporean Communication Ability: Effective Visual Impairment: Limited Hearing Ability: Use of Hearing Aid Oncology Social Worker Required: No Beliefs That Will Affect Care: None marital status: Current Living Situation: Spouse Current Living Situation Comment: Lives with and 15yr old son current occupational status: unemployed 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 How many Children do You have: 1 Feels Safe at Home: Yes Childhood Exposure to Second-Hand Smoke: No Diet: low carbohydrate caffeine: No Physical Activity Frequency: Daily Physical Activity Frequency Comment: walks Seatbelt Use: always Sunscreen Use: Yes Do you think of yourself as: straight/heterosexual Assistive Devices: Glasses and Walker Review of Systems A total of 10 systems reviewed and were otherwise negative Physical Exam Vital Signs Vital Signs - 24 hr 01/01/23 13:55 01/01/23 14:16 01/01/23 14:15 Temperature 36.5 C Temperature Source Temporal Artery Scan Pulse Rate 110 H 102 H 115 H Pulse Rate [Left Apical] Pulse Rate from SpO2 Sensor 115 H Pulse Rhythm [Left Apical] Pulse Strength [Left Apical] Respiratory Rate 20 19 Respiratory Effort / Characteristics Non-Labored Spontaneous Respiratory Depth Normal Blood Pressure 120/83 Blood Pressure [Left Arm] Blood Pressure Mean 95 Blood Pressure Mean [Left Arm] Pulse Oximetry 93 94 Oxygen Delivery Method Room Air Sepsis Recent Fever Within 48 Hours No Sepsis New/Unexplained Change in Mental Status No Sepsis Action Taken by Nursing No Action Required 01/01/23 14:20 01/01/23 14:30 01/01/23 14:40 Temperature Temperature Source Pulse Rate 106 H 112 H 112 H Pulse Rate [Left Apical] Pulse Rate from SpO2 Sensor 99 H 112 H 106 H Pulse Rhythm [Left Apical] Pulse Strength [Left Apical] Respiratory Rate 20 22 27 H Respiratory Effort / Characteristics Respiratory Depth Blood Pressure Blood Pressure [Left Arm] Blood Pressure Mean Blood Pressure Mean [Left Arm] Pulse Oximetry 93 94 94 Oxygen Delivery Method Sepsis Recent Fever Within 48 Hours Sepsis New/Unexplained Change in Mental Status Sepsis Action Taken by Nursing 01/01/23 14:50 01/01/23 15:10 01/01/23 15:58 Temperature 38.6 C H Temperature Source Oral Pulse Rate 108 H 115 H Pulse Rate [Left Apical] Pulse Rate from SpO2 Sensor 104 H 116 H Pulse Rhythm [Left Apical] Pulse Strength [Left Apical] Respiratory Rate 25 H 23 Respiratory Effort / Characteristics Respiratory Depth Blood Pressure Blood Pressure [Left Arm] Blood Pressure Mean Blood Pressure Mean [Left Arm] Pulse Oximetry 92 91 Oxygen Delivery Method Sepsis Recent Fever Within 48 Hours Sepsis New/Unexplained Change in Mental Status Sepsis Action Taken by Nursing 01/01/23 17:05 Temperature Temperature Source Pulse Rate Pulse Rate [Left Apical] 123 H Pulse Rate from SpO2 Sensor Pulse Rhythm [Left Apical] Regular Pulse Strength [Left Apical] Normal Respiratory Rate 22 Respiratory Effort / Characteristics Non-Labored Spontaneous Respiratory Depth Normal Blood Pressure Blood Pressure [Left Arm] 131/87 Blood Pressure Mean Blood Pressure Mean [Left Arm] 101 Pulse Oximetry 93 Oxygen Delivery Method Room Air Sepsis Recent Fever Within 48 Hours Sepsis New/Unexplained Change in Mental Status Sepsis Action Taken by Nursing General: Well developed well nourished uncomfortable appearing middle-aged male who appears in pain but in no acute respiratory distress, breathing comfortably on room air. Normal speech HEENT: Normal cephalic atraumatic. Pupils are equal round and reactive to light. Extraocular movements are intact. Oropharynx is pink with moist mucous membranes. No swelling of the mouth lips or tongue. Neck: Supple with a midline trachea. No meningeal signs or stiffness, no JVD or bruits. No Stridor. Chest: Clear to auscultation bilaterally. No wheezes or rhonchi. No increased work of breathing. He does have pectus excavatum with chronic deformity of the chest and chest wall Heart: Regular rate and rhythm without murmurs or gallops. Abdomen: Soft nontender, nondistended without rebound guarding or rigidity. Extremities: No cyanosis clubbing or edema. No calf tenderness or assymetry Spine/Back. Non tender to palpation. No CVA tenderness Skin: Good turgor without rashes. Neurologic exam: Cranial nerves two through 12 are intact. Motor and sensation are intact and symmetrical throughout. Course Administered Medications Discontinued Medications Acetaminophen (Acetaminophen 325 Mg Tab) 650 mg PO NOW STA Stop: 01/01/23 16:04 Last Admin: 01/01/23 16:26 Dose: 650 mg Documented By: LEANA Sodium Chloride (Nss 1000ml) 500 mls @ 999 mls/hr IV .Q31M ONE Stop: 01/01/23 16:11 Last Infusion: 01/01/23 16:24 Dose: 0 mls/hr Documented By: Admin: 01/01/23 15:50 Dose: 999 mls/hr Documented By: LEANA Ceftriaxone Sodium (Rocephin) 2,000 mg in 70 mls @ 140 mls/hr IV NOW STA Stop: 01/01/23 16:10 Last Infusion: 01/01/23 16:24 Dose: 0 mls/hr Documented By: Admin: 01/01/23 15:50 Dose: 140 mls/hr Documented By: LEANA Ioversol (Optiray 320 500ml) 115 ml IV ONCE ONE Stop: 01/01/23 14:57 Last Admin: 01/01/23 14:57 Dose: 115 ml Documented By: EDNA Levalbuterol HCl (Levalbuterol 1.25 Mg/3 Ml Neb) 1.25 mg NEB NOW STA; Protocol Stop: 01/01/23 15:42 Last Admin: 01/01/23 17:09 Dose: 1.25 mg Documented By: CARMELO Methylprednisolone (Methylprednisolone 125 Mg/2 Ml Vial) 125 mg IV NOW STA Stop: 01/01/23 15:42 Last Admin: 01/01/23 15:46 Dose: 125 mg Documented By: LEANA Morphine Sulfate (Morphine Sulfate 2 Mg/Ml Carp) 2 mg IV NOW STA Stop: 01/01/23 14:06 Last Admin: 01/01/23 14:11 Dose: 2 mg Documented By: FAVIO Medical Decision Making Differential Diagnosis Acute coronary syndrome, arrhythmia, PE, pneumothorax, COPD, musculoskeletal, aortic or vascular, infectious, pneumonia, sepsis Medical Records Attestation: I reviewed the patient's medical records. Home Medications Current Medication List: was personally reviewed by me Laboratory Data Attestation: I reviewed the patient's lab results. 01/01/23 13:55 01/01/23 13:55 Lab Results 01/01/23 01/01/23 01/01/23 Range/Units 13:55 13:55 13:55 WBC 4.50 L (4.8-10.8) K/ul RBC 4.72 (4.70-6.10) M/uL Hgb 14.7 (14.0-18.0) g/dl Hct 44.7 (42.0-52.0) % MCV 94.7 (80.0-100.0) fL MCH 31.1 (25.0-34.0) pg MCHC 32.9 (32.0-36.0) g/dL RDW Std Deviation 52.0 H (36.4-46.3) fL RDW Coeff of Ligia 14.8 H (11.5-14.5) % Plt Count 140 (130-400) K/uL MPV 9.9 (9.4-12.4) fL Immature Gran % (Auto) 0.7 % Neut % (Auto) 69.1 % Lymph % (Auto) 18.7 % [place] % (Auto) 11.1 % Eos % (Auto) 0.2 % Baso % (Auto) 0.2 % Neut # (Auto) 3.11 (1.40-6.50) K/uL Lymph # (Auto) 0.84 L (1.2-3.4) K/uL [place] # (Auto) 0.50 (0.11-0.59) K/uL Eos # (Auto) 0.01 (0-0.50) K/uL Baso # (Auto) 0.01 (0-0.2) K/uL Immature Gran # (Auto) 0.03 (0.01-0.20) K/uL PT 11.6 (9.0-12.0) Seconds INR 1.1 (0.9-1.1) APTT 30.4 (21.0-31.0) Seconds PTT Ratio 1.1 Sodium 141 (136-145) mmol/L Potassium 4.0 (3.5-5.1) mmol/L Chloride 104 (98-107) mmol/L Carbon Dioxide 30 (21-32) mmol/L Anion Gap 7 (3-11) BUN 9 (6-23) mg/dl Creatinine 0.85 (0.6-1.4) mg/dl Est Cr Clr Drug Dosing 102.8 ml/min Est GFR ( Amer) 119.4 ml/min Est GFR (Non-Af Amer) 103.0 ml/min BUN/Creatinine Ratio 10.6 (10-20) Glucose 103 H (70-99(Fasting)) mg/dl Lactate (0.4-2.0) mmol/L Calcium 9.6 (8.6-10.3) mg/dl Total Bilirubin 0.9 (0.2-1.0) mg/dl AST 20 (13-39) U/L ALT 21 (7-52) U/L Alkaline Phosphatase 65 (34-104) U/L Troponin I High Sens 2.7 (0-20) pg/ml Total Protein 7.8 (6.0-8.3) gm/dl Albumin 4.7 (3.4-5.0) gm/dl Globulin 3.1 (2.5-4.0) gm/dl Albumin/Globulin Ratio 1.5 (0.9-2) Lipase 17 (11-82) U/L Procalcitonin (0-0.5) ng/ml SARS-CoV-2, RNA, NAAT (NEGATIVE) 01/01/23 01/01/23 01/01/23 Range/Units 14:34 15:59 15:59 WBC (4.8-10.8) K/ul RBC (4.70-6.10) M/uL Hgb (14.0-18.0) g/dl Hct (42.0-52.0) % MCV (80.0-100.0) fL MCH (25.0-34.0) pg MCHC (32.0-36.0) g/dL RDW Std Deviation (36.4-46.3) fL RDW Coeff of Ligia (11.5-14.5) % Plt Count (130-400) K/uL MPV (9.4-12.4) fL Immature Gran % (Auto) % Neut % (Auto) % Lymph % (Auto) % [place] % (Auto) % Eos % (Auto) % Baso % (Auto) % Neut # (Auto) (1.40-6.50) K/uL Lymph # (Auto) (1.2-3.4) K/uL [place] # (Auto) (0.11-0.59) K/uL Eos # (Auto) (0-0.50) K/uL Baso # (Auto) (0-0.2) K/uL Immature Gran # (Auto) (0.01-0.20) K/uL PT (9.0-12.0) Seconds INR (0.9-1.1) APTT (21.0-31.0) Seconds PTT Ratio Sodium (136-145) mmol/L Potassium (3.5-5.1) mmol/L Chloride (98-107) mmol/L Carbon Dioxide (21-32) mmol/L Anion Gap (3-11) BUN (6-23) mg/dl Creatinine (0.6-1.4) mg/dl Est Cr Clr Drug Dosing ml/min Est GFR ( Amer) ml/min Est GFR (Non-Af Amer) ml/min BUN/Creatinine Ratio (10-20) Glucose (70-99(Fasting)) mg/dl Lactate (0.4-2.0) mmol/L Calcium (8.6-10.3) mg/dl Total Bilirubin (0.2-1.0) mg/dl AST (13-39) U/L ALT (7-52) U/L Alkaline Phosphatase (34-104) U/L Troponin I High Sens 2.7 (0-20) pg/ml Total Protein (6.0-8.3) gm/dl Albumin (3.4-5.0) gm/dl Globulin (2.5-4.0) gm/dl Albumin/Globulin Ratio (0.9-2) Lipase (11-82) U/L Procalcitonin < 0.05 (0-0.5) ng/ml SARS-CoV-2, RNA, NAAT NEGATIVE (NEGATIVE) 01/01/23 Range/Units 16:01 WBC (4.8-10.8) K/ul RBC (4.70-6.10) M/uL Hgb (14.0-18.0) g/dl Hct (42.0-52.0) % MCV (80.0-100.0) fL MCH (25.0-34.0) pg MCHC (32.0-36.0) g/dL RDW Std Deviation (36.4-46.3) fL RDW Coeff of Ligia (11.5-14.5) % Plt Count (130-400) K/uL MPV (9.4-12.4) fL Immature Gran % (Auto) % Neut % (Auto) % Lymph % (Auto) % [place] % (Auto) % Eos % (Auto) % Baso % (Auto) % Neut # (Auto) (1.40-6.50) K/uL Lymph # (Auto) (1.2-3.4) K/uL [place] # (Auto) (0.11-0.59) K/uL Eos # (Auto) (0-0.50) K/uL Baso # (Auto) (0-0.2) K/uL Immature Gran # (Auto) (0.01-0.20) K/uL PT (9.0-12.0) Seconds INR (0.9-1.1) APTT (21.0-31.0) Seconds PTT Ratio Sodium (136-145) mmol/L Potassium (3.5-5.1) mmol/L Chloride (98-107) mmol/L Carbon Dioxide (21-32) mmol/L Anion Gap (3-11) BUN (6-23) mg/dl Creatinine (0.6-1.4) mg/dl Est Cr Clr Drug Dosing ml/min Est GFR ( Amer) ml/min Est GFR (Non-Af Amer) ml/min BUN/Creatinine Ratio (10-20) Glucose (70-99(Fasting)) mg/dl Lactate 1.9 (0.4-2.0) mmol/L Calcium (8.6-10.3) mg/dl Total Bilirubin (0.2-1.0) mg/dl AST (13-39) U/L ALT (7-52) U/L Alkaline Phosphatase (34-104) U/L Troponin I High Sens (0-20) pg/ml Total Protein (6.0-8.3) gm/dl Albumin (3.4-5.0) gm/dl Globulin (2.5-4.0) gm/dl Albumin/Globulin Ratio (0.9-2) Lipase (11-82) U/L Procalcitonin (0-0.5) ng/ml SARS-CoV-2, RNA, NAAT (NEGATIVE) Imaging Data Attestation: I personally reviewed and interpreted this imaging study as fo llows: My Impression: Chest x-rayno pneumothorax. There is poor inspiratory effort he does have some patchy infiltrates in the bases bilaterally CT angiography of the chest-no evidence of PE. I do not see definite aortic pathology. No pneumothorax. There is some lung disease in the bases Radiologist's Impression: Chest X-Ray 01/01/23 14:05 XR chest 1V portable HISTORY: Left-sided chest pain. Shortness of breath. COMPARISON: Chest 10/28/2022. FINDINGS: No pneumothorax. No pleural effusions. There are patchy bibasilar airspace opacity which are new from the prior study. The heart is mildly enlarged. Rotated study. There is mild central pulmonary vascular congestion without overt edema. IMPRESSION: There are new patchy bibasilar airspace opacities. This likely represents a pneumonia. ACT 112: Negative or not required by law. Electronically signed by: Lobo Wilkins M.D. 01/01/2023 2:39 PM Chest CTA 01/01/23 14:06 CHEST CTA for PULMONARY ARTERIES CT DOSE: 743.30 mGy.cm HISTORY: Chest pain. Difficulty breathing. TECHNIQUE: Multiaxial CT images of the chest were performed following the intravenous administration of contrast to evaluate the pulmonary arteries. Maximal intensity projection images were also obtained. A dose lowering technique was utilized adhering to the principles of ALARA. COMPARISON STUDY: Chest CTA 10/19/2021. FINDINGS: Multiple chronic compression deformities again noted within the mid to lower thoracic spine. There is an old, healed sternal fracture. There is an old, healed right clavicle fracture. Old, healed bilateral rib fractures. No acute fractures within the chest. No pneumothorax. The central airways are patent. Small patchy and linear airspace opacities within the lung bases. This is most pronounced within the lower lobes. This is nonspecific and could be due to atelectasis or a pneumonia. This has slightly progressed in the interval. No evidence for pulmonary edema. There is a pectus excavatum deformity again noted. Limited views of the upper abdomen demonstrate a normal liver, spleen, and adrenal glands. The heart remains enlarged. No pleural or pericardial effusions. Normal esophagus. No mediastinal or hilar lymphadenopathy. Normal caliber thoracic aorta with no evidence for a dissection. Mild coronary artery calcifications are noted. The majority of the bilateral lower lobe segmental and subsegmental pulmonary arteries are nondiagnostic due to the respiratory motion artifact. However, the remaining pulmonary arteries show no filling defects to suggest a pulmonary embolus. IMPRESSION: 1. No evidence for a pulmonary embolus with limitations as described above. 2. Small patchy and linear airspace opacities within the lung bases. This is most pronounced within the lower lobes. This is nonspecific and could be due to atelectasis or a pneumonia. This has slightly progressed in the interval. 3. Mild cardiomegaly, unchanged. 4. Additional findings as described above. ACT 112: Negative or not required by law. Electronically signed by: Lobo Wilkins M.D. 01/01/2023 3:25 PM ECG Data Attestation: I personally reviewed and interpreted this ECG as follows: Indication: + chest pain and + SOB/dyspnea Rate (beats per minute): 110 Rhythm: + sinus tachycardia and + other (Poor baseline due to discomfort) ECG Intervals/blocks: + Normal QRS, + Normal QT and + Normal [place] ECG [place]: + Normal ECG ST segments: + Normal ST segments ECG Findings: + PVCs; no PACs Comparison ECG Date: from (11/05/2022) Change: no significant change MDM Narrative This patient comes in described above he had chest pain that started about 7 hours ago now. He appears uncomfortable he has been having ongoing left-sided back pain and on palpation is very reproducibly tender there now he has chest pain. He does have a history of PE. His EKG is a poor baseline due to artifact and movement but no definite STEMI. IV access was established he was given morphine 2 mg IV. Multiple blood testing has been obtained as well as chest x- ray and EKG also ordered CT angiography to evaluate for possibly PE and aortic pathology. COVID testing was obtained as well. He was reassessed frequently. He looks more comfortable still said he was having pain after the morphine. EKG does not suggest ischemia and troponin is negative despite having hours of pain. Chest x-ray shows no pneumothorax. He does have some infiltrates in the bases. He has no significant electrolyte or metabolic abnormalities. I did did order CT angiography as well. COVID testing was negative. CT angio was negative for PE. There is no aortic dissection and has no pneumothorax. There is atelectasis and possible infiltrate as well. I did add blood cultures as well as lactic acid and procalcitonin. He was given 500 cc IV normal saline bolus. He was given Xopenex neb. His O2 sats in the low 90s and does dip into the 80s at times. His COPD is playing a role here but I think he does have underlying atel ectasis and/or infiltrate. He was given IV Rocephin 2 g, I did discuss the antibiotic choice with her ED pharmacist as well. He did spike a temperature shortly after this and was given Tylenol as well. A second troponin was negative. Lactic acid was also within normal limits and procalcitonin were was also normal which would go against sepsis. I did consult the [facility] hospitalist group discussed the case with them and they will see him in the ER for these measures. Continuous cardiac monitoring: Orders placed in EMR for continuous cardiac monitoring: Upon my evaluation patient noted to be sinus tachycardia with a rate of 105. Impression & Plan Pneumonia, Chest pain, SOB (shortness of breath), alf (current) use of anticoagulants, Lab test negative for COVID-19 virus, COPD (chronic obstructive pulmonary disease) Discharge Plan Visit Data Chief Complaint: Chest Pain Stated Complaint: CHEST PAIN, DIFFICULTY BREATHING ED Provider: Marco Gaitan Discharge Problem: Pneumonia, Chest pain, SOB (shortness of breath), alf (current) use of anticoagulants, Lab test negative for COVID-19 virus, COPD (chronic obstructive pulmonary disease) Forms Stand Alone Forms: My [facility] Work[employer] Prescriptions Prescriptions: No Action levalbuterol tartrate 45 mcg/actuation HFA aerosol inhaler 2 puffs INHALATION Q4H PRN (Reason: Shortness Of Breath Or Wheezing) Qty: 45 1RF (DME) Lyle Walker Misc See Rx Instructions .Route Qty: 1 0RF Rx Instructions: As directed with seat verapamil 120 mg tablet extended release 120 mg PO HS Qty: 90 3RF pantoprazole 40 mg tablet,delayed release (DR/EC) 40 mg PO QAM Qty: 90 3RF Trulance 3 mg tablet 3 mg PO DAILY Qty: 90 3RF mupirocin 2 % ointment 1 applic topical BID Qty: 22 8RF Xarelto 20 mg tablet 20 mg PO QAM Qty: 90 1RF Rx Instructions: ADMINISTER WITH A MEAL/FOOD duloxetine 60 mg capsule,delayed release(DR/EC) 60 mg PO DAILY Qty: 90 3RF ofloxacin 0.3 % drops 5 drp otic (ear) BID Qty: 10 4RF Rx Instructions: 2 bottles per month, administed 3 month (6 bottles) supply levothyroxine 50 mcg tablet 50 mcg PO QAM Qty: 90 1RF Tezspire 210 mg/1.91 mL (110 mg/mL) syringe 210 mg subcut .COMPLEX Qty: 1.91 11RF Rx Instructions: INJECT 210 mg subcut EVERY 4 WEEKS No prior authorization required per [facility] Medical benefit No prior authorization required per pharmacy benefit. Drug is covered by current benefit plan. clonazepam [Klonopin] 0.5 mg tablet 1 mg PO BID PRN (Reason: anxiety ) Qty: 120 2RF Rx Instructions: May take 1 or 2 Twice DAILY gabapentin 100 mg capsule 100 mg PO BID Qty: 60 2RF docusate sodium [Stool Softener] 100 mg tablet 100 mg PO BID PRN (Reason: Constipation) tramadol 50 mg tablet 50 mg PO Q8H PRN (Reason: pain) Qty: 30 0RF alpha lipoic acid 600 mg tablet 600 mg PO DAILY methocarbamol 750 mg tablet 750 mg PO TID PRN (Reason: muscle spasm) Qty: 30 0RF ascorbic acid (vitamin C) 500 mg tablet 1,000 mg PO QAM cholecalciferol (vitamin D3) 2,000 unit capsule 2,000 units PO QAM Trelegy Ellipta 200-62.5-25 mcg blister with device 1 inh inhalation QAM Qty: 3 1RF mometasone 50 mcg/actuation spray,non-aerosol 2 spray intranasal DAILY PRN (Reason: Congestion) Rx Instructions: administer into each nostril fluticasone propionate [Flonase Allergy Relief] 50 mcg/actuation spray,suspension 2 spray intranasal DAILY PRN (Reason: Congestion) Rx Instructions: administer into each nostril multivitamin Tablet 1 tab PO QAM calcium carbonate-vitamin D3 [Calcium 600 + D(3)] 600 mg(1,500mg) -400 unit Tablet 1 tab PO BID epinephrine [EpiPen 2-Dustin] 0.3 mg/0.3 mL auto-injector 0.3 mg IM Q15M PRN (Reason: Anaphylaxis) Prolia 60 mg/mL syringe 60 mg subcut .every 6 months diclofenac sodium 1 % Gel 4 g TOPICAL BID PRN (Reason: Pain) levalbuterol HCl 1.25 mg/3 mL solution for nebulization 1.25 mg INH Q4H Patient Comments: pt states uses every am and then Q4hrs when needed omega-3 fatty acids 1,000 mg Capsule 1,000 mg PO QAM Referrals Referrals: Marco Lantigua DO [Primary Care Provider] -
[2023-01-01 14:27] LABS: Basophils # (auto) 0.01 K/uL (0-0.2); Basophils % (auto) 0.2 %; Eosinophils # (auto) 0.01 K/uL (0-0.50); Eosinophils % (auto) 0.2 %; Hematocrit (blood only) 44.7 % (42.0-52.0); Hemoglobin 14.7 g/dl (14.0-18.0); Immature Granulocytes # (auto) 0.03 K/uL (0.01-0.20); Immature Granulocytes % (auto) 0.7 %; Lymphocytes # (auto) 0.84 K/uL (1.2-3.4); Lymphocytes % (auto) 18.7 %; Mean Corpuscular Hemoglobin 31.1 pg (25.0-34.0); Mean Corpuscular Hgb Conc 32.9 g/dL (32.0-36.0); Mean Corpuscular Volume 94.7 fL (80.0-100.0); Mean Platelet Volume 9.9 fL (9.4-12.4); Monocytes % (auto) 11.1 %; Neutrophils # (auto) 3.11 K/uL (1.40-6.50); Neutrophils % (auto) 69.1 %; Platelet Count 140 K/uL (130-400); RDW Coefficient of Variation 14.8 % (11.5-14.5); Red Blood Count 4.72 M/uL (4.70-6.10)
[2023-01-01 14:30] LABS: Albumin Globulin Ratio 1.5 (0.9-2); Albumin Level 4.7 gm/dl (3.4-5.0); BUN Creatinine Ratio 10.6 (10-20); Bilirubin,Total 0.9 mg/dl (0.2-1.0); Calcium 9.6 mg/dl (8.6-10.3); Creatinine Clr Calc Pharmacy 102.8 ml/min; Est GFR (African American) 119.4 ml/min; Globulin 3.1 gm/dl (2.5-4.0); Total Protein 7.8 gm/dl (6.0-8.3)
[2023-01-01 14:35] LABS: Troponin I High Sensitivity 2.7 pg/ml (0-20)
--- NOTE | 2023-01-01 14:40 | XRay Report ---
XR chest 1V portable HISTORY: Left-sided chest pain. Shortness of breath. COMPARISON: Chest 10/28/2022. FINDINGS: No pneumothorax. No pleural effusions. There are patchy bibasilar airspace opacity which ar e new from the prior study. The heart is mildly enlarged. Rotated study. There is mild central pulmon moustapha vascular congestion without overt edema. IMPRESSION: There are new patchy bibasilar airspace opacities. This likely represents a pneumonia. ACT 112: Negative or not required by law. Electronically signed by: Lobo Wilkins M.D. 01/01/2023 2:39 PM
[2023-01-01 14:48] LABS: INR 1.1 (0.9-1.1); Partial Thromboplastin Ratio 1.1; Partial Thromboplastin Time 30.4 Seconds (21.0-31.0); Prothrombin Time 11.6 Seconds (9.0-12.0)
[2023-01-01] MEDS ORDERED: OPTIRAY 320 500ml IV ONE (14:56)
--- NOTE | 2023-01-01 15:27 | CT Scan Report ---
CHEST CTA for PULMONARY ARTERIES CT DOSE: 743.30 mGy.cm HISTORY: Chest pain. Difficulty breathing. TECHNIQUE: Multiaxial CT images of the chest were performed following the intravenous administration of contrast to evaluate the pulmonary arteries. Maximal intensity projection images were also obtaine d. A dose lowering technique was utilized adhering to the principles of ALARA. COMPARISON STUDY: Chest CTA 10/19/2021. FINDINGS: Multiple chronic compression deformities again noted within the mid to lower thoracic spine . There is an old, healed sternal fracture. There is an old, healed right clavicle fracture. Old, hea led bilateral rib fractures. No acute fractures within the chest. No pneumothorax. The central airway s are patent. Small patchy and linear airspace opacities within the lung bases. This is most pronounc ed within the lower lobes. This is nonspecific and could be due to atelectasis or a pneumonia. This h as slightly progressed in the interval. No evidence for pulmonary edema. There is a pectus excavatum deformity again noted. Limited views of the upper abdomen demonstrate a normal liver, spleen, and adr enal glands. The heart remains enlarged. No pleural or pericardial effusions. Normal esophagus. No me diastinal or hilar lymphadenopathy. Normal caliber thoracic aorta with no evidence for a dissection. Mild coronary artery calcifications are noted. The majority of the bilateral lower lobe segmental and subsegmental pulmonary arteries are nondiagnostic due to the respiratory motion artifact. However, t he remaining pulmonary arteries show no filling defects to suggest a pulmonary embolus. IMPRESSION: 1. No evidence for a pulmonary embolus with limitations as described above. 2. Small patchy and linear airspace opacities within the lung bases. This is most pronounced within t he lower lobes. This is nonspecific and could be due to atelectasis or a pneumonia. This has slightly progressed in the interval. 3. Mild cardiomegaly, unchanged. 4. Additional findings as described above. ACT 112: Negative or not required by law. Electronically signed by: Lobo Wilkins M.D. 01/01/2023 3:25 PM
[2023-01-01] MEDS ORDERED: cefTRIAXone SODIUM 2,000 MG/70 ML BAG IV STA (15:41)
[2023-01-01] MEDS ORDERED: SODIUM CHLORIDE 0.9% 1000ML 500 ML IV ONE (15:41)
[2023-01-01] MEDS ORDERED: LEVALBUTEROL 1.25 MG/3 ML NEB NEB STA (15:41)
[2023-01-01] MEDS ORDERED: methylPREDNISolone 125 MG/2 ML VIAL IV STA (15:41)
[2023-01-01] MEDS ORDERED: ACETAMINOPHEN 325 MG TAB PO STA (16:03)
--- NOTE | 2023-01-01 16:59 | History & Physical Report ---
Date of Service January 01, 2023 Assessment & Plan (1) Community acquired bacterial pneumonia: Plan: Acute/unstable - moderate risk - Admit to pcu due to sepsis syndrome - Initiate antibiotic therapy with Cefepime 2g IV q12 - due to hx bronchiectasis, should have pseudomonal coverage - Xopenex scheduled q6 - Mucinex 600mg q12 - Will initiate supplemental O2 for sat <90% - Incentive spirometer use q 4w while awake - Add Toradol PRN pleuritic cp (2) Sepsis: Plan: Acute/unstable - high risk - Meets sepsis with tachycardia and fever + pneumonia - CBC reviewed, wbc 4.50 w/o shift - Blood cultures have been ordered - Lactate normal, HS trop negative - PCU admit for continuous HD monitoring - APAP PRN fever/pain (3) Bronchiectasis: Plan: Chronic/stable - 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 Labs have been ordered for tomorrow AM. Above plan of care has been d/w Dr. Garcia who will also see and evaluate this patient. Further orders will be implemented as warranted. History of Present Illness Chief Complaint: L sided chest pain Primary Care Provider: Marco Lnatigua DO Mr. Vazquez is a 47 yo M with an extensive pmhx including pectus excavatum, CMT, bronchiectasis, hypothyroidism, COPD, hypogammaglobulinemia, chronic mastoiditis, h/o DVT/PE, anxiety, ÁNGEL on bipap, and vocal cord dysfunction who presented to the ER today c/o severe left sided chest pain. He reports that he was seen by his PCP last week and started on a muscle relaxer due to sx including increasing back pain on the left side that was radiating up to his shoulder. At the end of November, he was c/o increased cough with sputum production and was placed on a course of Augmentin which he completed. Today, he awoke around 5am experiencing left sided sharp chest pain. As the day has gone on, the pain has progressed and he finally felt he couldn't take it any longer and so ught treatment in the ER this afternoon. He was checking his pulse ox at home today and notes that it didn't drop below 90% but that he did not check his fever. Does not endorse worsening cough or sputum production. While in the ER this afternoon, he spiked a temp of 38.6C. CXR completed demonstrated new patchy bibasilar airspace opacities c/f pneumonia. A CTA chest was also done which was negative for PE but confirmed bibasilar opacities more pronounced in the lower lobes. He was medicated with a dose of Methylprednisolone, Rocephin, Morphine, Xopenex, a liter of NSS and a dose of Tylenol and has been referred for admission to the hospitalist service. Of note, his covid swab was negative. Allergies Allergy/AdvReac Type Severity Reaction Status Date / Time gluten Allergy Intermediate STOMACH Verified 01/01/23 16:04 ISSUES ciprofloxacin AdvReac Intermediate issue with Verified 01/01/23 16:04 legs oxycodone AdvReac Intermediate GI upset Verified 01/01/23 16:04 Home Medications Medication Instructions Recorded Confirmed Type calcium carbonate 600 mg-vitamin 1 tab PO BID 09/05/18 01/01/23 History D3 10 mcg (400 unit) tablet (Calcium 600 + D(3)) multivitamin 1 tab PO QAM 09/05/18 01/01/23 History diclofenac sodium 1 % topical gel 4 g topical BID PRN Pain 01/13/19 01/01/23 History ascorbic acid (vitamin C) 500 mg 1,000 mg PO QAM 03/27/19 01/01/23 History tablet cholecalciferol (vitamin D3) 50 2,000 units PO QAM 03/27/19 01/01/23 History mcg (2,000 unit) capsule epinephrine 0.3 mg/0.3 mL 0.3 mg IM Q15M PRN Anaphylaxis 09/17/19 01/01/23 History injection, auto-injector (EpiPen 2-Dustin) levalbuterol tartrate 45 2 puffs inhalation Q4H PRN 02/28/20 01/01/23 Rx mcg/actuation aerosol inhaler Shortness Of Breath Or Wheezing #45 grams Wheeled Walker #1 ea 02/26/21 12/28/22 Rx fluticasone fur. 200 mcg-umeclid 1 inh inhalation QAM #3 Inhalers 10/06/21 01/01/23 Rx 62.5 mcg-vilant 25 mcg inhalat.powder (Trelegy Ellipta) denosumab 60 mg/mL subcutaneous 60 mg subcut .every 6 months 02/09/22 01/01/23 History syringe (Prolia) alpha lipoic acid 600 mg tablet 600 mg PO DAILY 03/18/22 01/01/23 History verapamil 120 mg tablet,extended 120 mg PO HS #90 tabs 03/18/22 01/01/23 Rx release pantoprazole 40 mg tablet,delayed 40 mg PO QAM #90 tabs 05/26/22 01/01/23 Rx release plecanatide 3 mg tablet (Trulance) 3 mg PO DAILY #90 tabs 06/29/22 01/01/23 Rx mupirocin 2 % topical ointment 1 applic topical BID #22 grams 07/06/22 01/01/23 Rx rivaroxaban 20 mg tablet (Xarelto) 20 mg PO QAM #90 tabs 08/06/22 01/01/23 Rx mometasone 50 mcg/actuation nasal 2 spray intranasal DAILY PRN 08/10/22 01/01/23 History spray Congestion fluticasone propionate 50 2 spray intranasal DAILY PRN 08/25/22 01/01/23 History mcg/actuation nasal Congestion spray,suspension (Flonase Allergy Relief) tramadol 50 mg tablet 50 mg PO Q8H PRN pain #30 tabs 09/08/22 01/01/23 Rx duloxetine 60 mg capsule,delayed 60 mg PO DAILY #90 caps 10/12/22 01/01/23 Rx release ofloxacin 0.3 % ear drops 5 drp otic (ear) BID #10 mL 10/12/22 01/01/23 Rx docusate sodium 100 mg tablet 100 mg PO BID PRN Constipation 10/28/22 01/01/23 History (Stool Softener) levalbuterol HCl 1.25 mg/3 mL 1.25 mg inhalation Q4H 10/28/22 01/01/23 History solution for nebulization levothyroxine 50 mcg tablet 50 mcg PO QAM #90 tabs 10/28/22 01/01/23 Rx Tezspire 210 mg/1.91 mL (110 210 mg (1.91 mL) subcut .COMPLEX 11/02/22 01/01/23 Rx mg/mL) subcutaneous syringe #1.91 mL (tezepelumab-ekko) clonazepam 0.5 mg tablet (Klonopin) 1 mg PO BID PRN anxiety #120 tabs 11/22/22 01/01/23 Rx gabapentin 100 mg capsule 100 mg PO BID #60 caps 12/16/22 01/01/23 Rx methocarbamol 750 mg tablet 750 mg PO TID PRN muscle spasm #30 12/28/22 01/01/23 Rx tabs omega-3 fatty acids 1,000 mg 1,000 mg PO QAM 01/01/23 01/01/23 History capsule Past Med/Surg History Medical History Abnormal gait Due to neuropathy Uses wheeled walker Allergic rhinitis Anemia Iron d/c'ed approximately 1week ago per PCP instructions per patient Bronchiectasis FOLLOWS WITH PULMONARY--multiple inhalers/nebulizer Chronic deep vein thrombosis of popliteal vein Per pt has been behind left knee for last 3yrs, 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--on Xarelto- stable - surgeon aware and feels okay to proceed Chronic reflux esophagitis CMT (Gzmdqxs-Wopgg-Qkgme disease) COPD (chronic obstructive pulmonary disease) Dextroscoliosis Esophageal spasm Tx with verapamil Fracture of maxillary sinus with routine healing Pt states d/t fall off mobility scooter happened summer--no surgery, has healed GERD (gastroesophageal reflux disease) On pantoprazole H/O lymphopenia History of malaria 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, 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 Hx pulmonary embolism (~2016) Reason for Xarelto daily Hypothyroidism Mastoiditis, chronic Mixed hearing loss, bilateral Does wear bilateral hearing aids Nausea and vomiting after administration of anesthetic agent Neuropathy In bilateral arm and leg, pt states he ambulates with a wheeled walker On home oxygen therapy 2L via Bipap every night ÁNGEL (obstructive sleep apnea) On BiPAP Osteoarthritis Osteoporosis Pectus excavatum Pulmonary hypertension Right ventricular enlargement Tremor Right hand Vocal cord dysfunction Surgical History History of bilateral cataract extraction History of bronchoscopy multiple History of cardiac cath (~04/15/20) 2019 @ [facility] d/t experiencing chest pain--No stents placed History of colonoscopy 09/2020 repeat 3 yrs History of ear surgery X4 History of esophagogastroduodenoscopy (EGD) last 03/10/21 @ [facility] History of placement of ear tubes 12/26/2020 LMA#5. No postop issues per anesthesia progress note. History of tooth extraction Hx of hemorrhoidectomy S/P total hip arthroplasty Right. 10/11/2018: SAB at L3-L4. Anesthesia post-op progress note: h ypotensive and tachycardic intraoperatively with over 700 ml of blood loss. He was given one unit of PRBC in the OR. In PACU, he was given 2000 ml of LR in PACU which caused HR to come down to the 70s from 110s and SBP to the 90s up from the 80s. His postop hgb was 9.[address] Perry is aware. The patient is otherwise awake and comfortable. Family History Mother Osteoporosis Father Prostate cancer Coronary heart disease Unknown Prostate cancer Grandmother (Paternal) Family history of diabetes mellitus Other Allergies Asthma Cancer Diabetes Hearing loss Heart disease No family history of adverse response to anesthesia No family history of bleeding disorder Stroke Denies family history of Hypertension Social History Smoking Status: Never smoker Second Hand Exposure: No; Do You Dip or Chew Tobacco: No; Hx Alcohol Use: No Hx Substance Use: No Preferred Language: Hungarian Communication Ability: Effective Visual Impairment: Limited Hearing Ability: Use of Hearing Aid Scientist Engineer Required: No Beliefs That Will Affect Care: None marital status: Current Living Situation: Alone Current Living Situation Comment: going to be living with family soon current occupational status: unemployed 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 AAOx4. NAD. LUNGS: Concave chest. Bibasilar crackles, L>R. No wheezes. Nonlabored. CARDIOVASCULAR: Tachycardic ABDOMEN: Soft, non-tender and non-distended. BS normoactive x 4 quad. EXTREMITIES: No edema. Non-tender. Peripheral pulses +2/4. Results & Data Results & Data Vital Signs (Past 12 Hours) Vital Signs Temp Pulse Resp BP Pulse Ox O2 Del Method 01/01/23 15:58 38.6 C H 01/01/23 15:10 115 H 23 91 01/01/23 14:50 108 H 25 H 92 01/01/23 14:40 112 H 27 H 94 01/01/23 14:30 112 H 22 94 01/01/23 14:20 106 H 20 93 01/01/23 14:15 115 H 19 94 01/01/23 14:16 102 H 01/01/23 13:55 36.5 C 110 H 20 120/83 93 Room Air Laboratory Results 01/01/23 13:55 01/01/23 13:55 Diagnostic Findings Chest X-Ray 01/01/23 14:05 XR chest 1V portable HISTORY: Left-sided chest pain. Shortness of breath. COMPARISON: Chest 10/28/2022. FINDINGS: No pneumothorax. No pleural effusions. There are patchy bibasilar airspace opacity which are new from the prior study. The heart is mildly enlarged. Rotated study. There is mild central pulmonary vascular congestion without overt edema. IMPRESSION: There are new patchy bibasilar airspace opacities. This likely represents a pneumonia. ACT 112: Negative or not required by law. Electronically signed by: Lobo Wilkins M.D. 01/01/2023 2:39 PM Chest CTA 01/01/23 14:06 CHEST CTA for PULMONARY ARTERIES CT DOSE: 743.30 mGy.cm HISTORY: Chest pain. Difficulty breathing. TECHNIQUE: Multiaxial CT images of the chest were performed following the intravenous administration of contrast to evaluate the pulmonary arteries. Maximal intensity projection images were also obtained. A dose lowering technique was utilized adhering to the principles of ALARA. COMPARISON STUDY: Chest CTA 10/19/2021. FINDINGS: Multiple chronic compression deformities again noted within the mid to lower thoracic spine. There is an old, healed sternal fracture. There is an old, healed right clavicle fracture. Old, healed bilateral rib fractures. No acute fractures within the chest. No pneumothorax. The central airways are patent. Small patchy and linear airspace opacities within the lung bases. This is most pronounced within the lower lobes. This is nonspecific and could be due to atelectasis or a pneumonia. This has slightly progressed in the interval. No evidence for pulmonary edema. There is a pectus excavatum deformity again noted. Limited views of the upper abdomen demonstrate a normal liver, spleen, and adrenal glands. The heart remains enlarged. No pleural or pericardial effusions. Normal esophagus. No mediastinal or hilar lymphadenopathy. Normal caliber thoracic aorta with no evidence for a dissection. Mild coronary artery calci fications are noted. The majority of the bilateral lower lobe segmental and subsegmental pulmonary arteries are nondiagnostic due to the respiratory motion artifact. However, the remaining pulmonary arteries show no filling defects to suggest a pulmonary embolus. IMPRESSION: 1. No evidence for a pulmonary embolus with limitations as described above. 2. Small patchy and linear airspace opacities within the lung bases. This is most pronounced within the lower lobes. This is nonspecific and could be due to atelectasis or a pneumonia. This has slightly progressed in the interval. 3. Mild cardiomegaly, unchanged. 4. Additional findings as described above. ACT 112: Negative or not required by law. Electronically signed by: Lobo Wilkins M.D. 01/01/2023 3:25 PM Code Status & VTE Plan Code Status DNI Supervising Physician Co-Signing Physician Notes I personally saw and examined the patient. I verified all go points and agree with Marianna Montes PA-C with the following exceptions and/or additions: 47 year old female presents to the ER with left sided chest pain and abdominal pain, woke up with the pain this morning. Associated cough and shortness of breath. O/E HS increased rate, regular rhythm, chest pain not reproducible on exam, rhonchi b/l on auscultation, Abdo SNT A/P CAP - cefepime + azithromycin Left chest pain - pleuritic in nature ?related to CAP. No PE on CT. PG Care Time/CCT Total # of Minutes Spent Total Time Spent with Patient: Total time spent is greater than 50% in coordination of care (as documented) at patient's floor/unit and/or counseling patient: Coding Level of Care Code 17482 INT INP/OBS CARE 3/75MIN Diagnoses Community acquired bacterial pneumonia J15.9 Sepsis A41.9 Bronchiectasis J47.9 Hx pulmonary embolism Z86.711 Anxiety F41.9 Hypothyroidism (acquired) E03.9 ÁNGEL (obstructive sleep apnea) G47.33
[2023-01-01 17:59] LABS: Influenza A virus by PCR Negative (Negative); Influenza B virus by PCR Negative (Negative)
[2023-01-01] MEDS ORDERED: ONDANSETRON INJ 2 MG/ML 2 ML VIAL IV PRN (19:33)
[2023-01-01] MEDS ORDERED: ALUMINUM/MAGNESIUM SUSP 30 ML UDC PO PRN (19:33)
[2023-01-01] MEDS ORDERED: ACETAMINOPHEN 325 MG TAB PO PRN (19:33)
[2023-01-01] MEDS ORDERED: MAGNESIUM HYDROXIDE SUSP 30 ML UDC PO PRN (19:33)
[2023-01-01] MEDS ORDERED: POLYETHYLENE (MIRALAX) 17 GM PACK PO PRN (19:33)
[2023-01-01] MEDS ORDERED: clonazePAM 1 MG TAB PO PRN (19:33)
[2023-01-01] MEDS ORDERED: traMADol HCL 50 MG TABLET PO PRN (19:33)
[2023-01-01] MEDS ORDERED: FLUTICASONE PROPIONATE NA SPR 16 GM BTL PRN (19:33)
[2023-01-01] MEDS ORDERED: KETOROLAC TROMETHAMINE 15 MG/ML VIAL IV PRN (19:33)
[2023-01-01] MEDS ORDERED: LEVALBUTEROL 1.25 MG/3 ML NEB ONE (19:43)
[2023-01-01] MEDS: LEVALBUTEROL 1.25MG/0.5ML NEB NEB SCH (19:47)
[2023-01-01] MEDS: guaiFENesin 600 MG TABCR PO SCH (21:09)
[2023-01-01] MEDS: DOCUSATE SODIUM 100 MG CAP PO SCH (21:09)
[2023-01-01] MEDS: GABAPENTIN 100 MG CAP PO SCH (21:09)
[2023-01-01] MEDS: VERAPAMIL HCL 120 MG TABCR PO SCH (21:09)
[2023-01-01] MEDS: OFLOXACIN 0.3% 75 DROPS/5 ML BTL OT SCH (21:10)
[2023-01-01] MEDS: AZITHROMYCIN 250 MG TAB PO SCH (21:46)
[2023-01-02] MEDS ORDERED: LEVALBUTEROL 1.25 MG/3 ML NEB ONE ×3 (00:54→18:50)
[2023-01-02] MEDS: LEVALBUTEROL 1.25MG/0.5ML NEB NEB SCH ×4 (00:58→18:55)
[2023-01-02] MEDS: LEVOTHYROXINE SODIUM 50 MCG TABLET PO SCH (05:53)
[2023-01-02 06:43] LABS: Basophils # (auto) 0.01 K/uL (0-0.2); Basophils % (auto) 0.1 %; Hematocrit (blood only) 43.9 % (42.0-52.0); Hemoglobin 14.4 g/dl (14.0-18.0); Immature Granulocytes # (auto) 0.04 K/uL (0.01-0.20); Immature Granulocytes % (auto) 0.5 %; Lymphocytes # (auto) 0.63 K/uL (1.2-3.4); Lymphocytes % (auto) 7.2 %; Mean Corpuscular Hemoglobin 30.9 pg (25.0-34.0); Mean Corpuscular Hgb Conc 32.8 g/dL (32.0-36.0); Mean Corpuscular Volume 94.2 fL (80.0-100.0); Mean Platelet Volume 10.4 fL (9.4-12.4); Monocytes # (auto) 0.67 K/uL (0.11-0.59); Monocytes % (auto) 7.6 %; Neutrophils # (auto) 7.42 K/uL (1.40-6.50); Neutrophils % (auto) 84.6 %; Platelet Count 149 K/uL (130-400); RDW Coefficient of Variation 14.7 % (11.5-14.5); RDW Standard Deviation 51.1 fL (36.4-46.3); Red Blood Count 4.66 M/uL (4.70-6.10); White Blood Count 8.77 K/ul (4.8-10.8)
[2023-01-02 07:06] LABS: Albumin Globulin Ratio 1.5 (0.9-2); Albumin Level 4.5 gm/dl (3.4-5.0); BUN Creatinine Ratio 19.2 (10-20); Calcium 9.7 mg/dl (8.6-10.3); Creatinine Clr Calc Pharmacy 112.1 ml/min; Est GFR (African American) 123.7 ml/min; Est GFR (Non-African American) 106.7 ml/min; Globulin 3.1 gm/dl (2.5-4.0); Magnesium 1.7 mg/dl (1.7-2.4); Potassium 3.9 mmol/L (3.5-5.1); Total Protein 7.6 gm/dl (6.0-8.3)
[2023-01-02] MEDS: CHOLECALCIFEROL 1,000 UNITS 25 MCG TAB PO SCH (08:34)
[2023-01-02] MEDS: guaiFENesin 600 MG TABCR PO SCH ×2 (08:34→19:37)
[2023-01-02] MEDS: PANTOprazole 40 MG TAB PO SCH (08:34)
[2023-01-02] MEDS: GABAPENTIN 100 MG CAP PO SCH ×2 (08:34→19:37)
[2023-01-02] MEDS: RIVAROXABAN 20 MG TAB PO SCH (08:34)
[2023-01-02] MEDS: DULoxetine HCL 60 MG CAP PO SCH (08:34)
[2023-01-02] MEDS: DOCUSATE SODIUM 100 MG CAP PO SCH ×2 (08:34→19:37)
[2023-01-02] MEDS: OFLOXACIN 0.3% 75 DROPS/5 ML BTL OT SCH ×2 (08:35→19:37)
[2023-01-02] MEDS ORDERED: CEFEPIME 2,000 MG in SYRINGE 0 ML IV SCH (09:00)
[2023-01-02] MEDS ORDERED: ALPHA LIPOIC ACID 600 MG PO SCH (09:00)
[2023-01-02] MEDS: FLUTICASONE FUROATE 200MCG 14 PUFFS/INHALER INH SCH (09:19)
[2023-01-02] MEDS: UMECLIDINIUM/VILANTEROL 62.5/25MCG 7 PUFFS/INHALER INH SCH (09:19)
--- NOTE | 2023-01-02 10:58 | Electrocardiogram Report ---
Test Reason : Blood Pressure : / mmHG Vent. Rate : 112 BPM Atrial Rate : 112 BPM P-R Int : 144 ms QRS Dur : 098 ms QT Int : 380 ms P-R-T Axes : 074 -30 064 degrees QTc Int : 518 ms Significant baseline artifact Sinus tachycardia with occasional Premature ventricular complexes Left axis deviation Nonspecific T wave abnormality Abnormal ECG When compared with ECG of 05-NOV-2022 23:05, Premature ventricular complexes are now Present Confirmed by Laz Marrero ([id number]) on 01/02/2023 10:58:21 AM Referred By: Sola Rossi Confirmed By:Laz Marrero
--- NOTE | 2023-01-02 10:59 | Electrocardiogram Report ---
Test Reason : Blood Pressure : / mmHG Vent. Rate : 110 BPM Atrial Rate : 110 BPM P-R Int : 168 ms QRS Dur : 088 ms QT Int : 338 ms P-R-T Axes : 032 -08 019 degrees QTc Int : 457 ms Sinus tachycardia with occasional Premature ventricular complexes When compared with ECG of 01-JAN-2023 13:43, (unconfirmed) No significant change was found Confirmed by Laz Marrero ([id number]) on 01/02/2023 10:58:50 AM Referred By: Sola Rossi Confirmed By:Laz Marrero
--- NOTE | 2023-01-02 12:07 | Hospitalist Progress Note ---
Date of Service January 02, 2023 Assessment & Plan (1) Community acquired bacterial pneumonia: Plan: Improving in symptomatology Improving pain -Continue antibiotic therapy with Cefepime 2g IV q12 - due to hx bronchiectasis, should have pseudomonal coverage - Xopenex scheduled q6 - Mucinex 600mg q12 - Will initiate supplemental O2 for sat <90% - Incentive spirometer use q 4w while awake -Continue Toradol PRN pleuritic cp (2) Sepsis: Plan: Acute/unstable - high risk - Meets sepsis with tachycardia and fever + pneumonia - Blood cultures pending - Lactate normal, HS trop negative - APAP PRN fever/pain (3) Bronchiectasis: Plan: Chronic/stable - 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 Admission and Anticipated Discharge Date Admission Date: January 01, 2023 Subjective Patient says that he is feeling slightly better today. His chest pain is improving but he is still in quite a bit of pain. The pain is pleuritic in nature. Review of Systems Review of Systems: All systems reviewed & are unremarkable except as noted in Subjective Physical Exam Physical Exam: General: Awake, conversant Heart: S1, S2/regular rate and rhythm, no murmur rubs or gallops Lungs: Diminished breath sounds bilaterally. Normal effort. It is not easy for the patient to take a deep breath in, restricted by pain. Abdomen: Soft/nontender/nondistended. No hepatosplenomegaly Extremities: No clubbing/cyanosis. No edema Behavior: Appropriate, cooperative Results & Data Results & Data Vital Signs (Past 12 Hours) Vital Signs Temp Pulse Pulse Pulse Resp BP Pulse Ox 01/02/23 11:34 36.7 C 95 H 20 105/65 96 01/02/23 08:00 01/02/23 08:14 36.6 C 63 19 115/70 96 01/02/23 07:56 93 H 01/02/23 07:09 81 20 97 01/02/23 03:00 36.6 C 112 H 23 103/41 L 94 01/02/23 03:24 103 H 01/02/23 00:58 86 22 95 O2 Del Method O2 Flow Rate 01/02/23 11:34 Nasal Cannula 1.5 01/02/23 08:00 Nasal Cannula 2 01/02/23 08:14 Nasal Cannula 1.5 01/02/23 07:56 01/02/23 07:09 Nasal Cannula 3 01/02/23 03:00 BiPAP 01/02/23 03:24 01/02/23 00:58 BiPAP 2 Laboratory Results Abnormal lab results 01/01/23 01/01/23 01/02/23 Range/Units 13:55 13:55 06:00 WBC 4.50 L (4.8-10.8) K/ul RBC 4.66 L (4.70-6.10) M/uL RDW Std Deviation 52.0 H 51.1 H (36.4-46.3) fL RDW Coeff of Ligia 14.8 H 14.7 H (11.5-14.5) % Neut # (Auto) 7.42 H (1.40-6.50) K/uL Lymph # (Auto) 0.84 L 0.63 L (1.2-3.4) K/uL [place] # (Auto) 0.67 H (0.11-0.59) K/uL Glucose 103 H (70-99(Fasting)) mg/dl 01/02/23 Range/Units 06:00 WBC (4.8-10.8) K/ul RBC (4.70-6.10) M/uL RDW Std Deviation (36.4-46.3) fL RDW Coeff of Ligia (11.5-14.5) % Neut # (Auto) (1.40-6.50) K/uL Lymph # (Auto) (1.2-3.4) K/uL [place] # (Auto) (0.11-0.59) K/uL Glucose 134 H (70-99(Fasting)) mg/dl Diagnostic Findings Chest X-Ray 01/01/23 14:05 XR chest 1V portable HISTORY: Left-sided chest pain. Shortness of breath. COMPARISON: Chest 10/28/2022. FINDINGS: No pneumothorax. No pleural effusions. There are patchy bibasilar airspace opacity which are new from the prior study. The heart is mildly enlarged. Rotated study. There is mild central pulmonary vascular congestion without overt edema. IMPRESSION: There are new patchy bibasilar airspace opacities. This likely represents a pneumonia. ACT 112: Negative or not required by law. Electronically signed by: Lobo Wilkins M.D. 01/01/2023 2:39 PM Chest CTA 01/01/23 14:06 CHEST CTA for PULMONARY ARTERIES CT DOSE: 743.30 mGy.cm HISTORY: Chest pain. Difficulty breathing. TECHNIQUE: Multiaxial CT images of the chest were performed following the intravenous administration of contrast to evaluate the pulmonary arteries. Maximal intensity projection images were also obtained. A dose lowering technique was utilized adhering to the principles of ALARA. COMPARISON STUDY: Chest CTA 10/19/2021. FINDINGS: Multiple chronic compression deformities again noted within the mid to lower thoracic spine. There is an old, healed sternal fracture. There is an old, healed right clavicle fracture. Old, healed bilateral rib fractures. No acute fractures within the chest. No pneumothorax. The central airways are patent. Small patchy and linear airspace opacities within the lung bases. This is most pronounced within the lower lobes. This is nonspecific and could be due to atelectasis or a pneumonia. This has slightly progressed in the interval. No evidence for pulmonary edema. There is a pectus excavatum deformity again noted. Limited views of the upper abdomen demonstrate a normal liver, spleen, and adrenal glands. The heart remains enlarged. No pleural or pericardial effusions. Normal esophagus. No mediastinal or hilar lymphadenopathy. Normal caliber thoracic aorta with no evidence for a dissection. Mild coronary artery calcifications are noted. The majority of the bilateral lower lobe segmental and subsegmental pulmonary arteries are nondiagnostic due to the respiratory motion artifact. However, the remaining pulmonary arteries show no filling defects to suggest a pulmonary embolus. IMPRESSION: 1. No evidence for a pulmonary embolus with limitations as described above. 2. Small patchy and linear airspace opacities within the lung bases. This is most pronounced within the lower lobes. This is nonspecific and could be due to atelectasis or a pneumonia. This has slightly progressed in the interval. 3. Mild cardiomegaly, unchanged. 4. Additional findings as described above. ACT 112: Negative or not required by law. Electronically signed by: Lobo Wilkins M.D. 01/01/2023 3:25 PM PG Care Time/CCT Total # of Minutes Spent Total Time Spent with Patient: Total time spent is greater than 50% in coordination of care (as documented) at patient's floor/unit and/or counseling patient: Coding Level of Care Code 43441 SUB INP/OBS CARE 2/35MIN Diagnoses Community acquired bacterial pneumonia J15.9 Sepsis A41.9 Bronchiectasis J47.9 Hx pulmonary embolism Z86.711 Anxiety F41.9 Hypothyroidism (acquired) E03.9 ÁNGEL (obstructive sleep apnea) G47.33
[2023-01-02] MEDS: CEFEPIME 2,000 MG in SYRINGE 0 ML IV SCH ×2 (14:57→22:02)
[2023-01-02] MEDS: VERAPAMIL HCL 120 MG TABCR PO SCH (19:36)
[2023-01-02] MEDS: AZITHROMYCIN 250 MG TAB PO SCH (19:37)
[2023-01-02] MEDS ORDERED: Nursing to Pharmacy Communication SCH (21:45)
[2023-01-03] MEDS: LEVALBUTEROL 1.25MG/0.5ML NEB NEB SCH ×4 (01:45→21:26)
[2023-01-03] MEDS ORDERED: LEVALBUTEROL 1.25 MG/3 ML NEB ONE ×3 (02:04→18:47)
[2023-01-03] MEDS: LEVOTHYROXINE SODIUM 50 MCG TABLET PO SCH (05:53)
[2023-01-03] MEDS ORDERED: Nursing to Pharmacy Communication SCH ×2 (06:15→21:45)
[2023-01-03] MEDS: CEFEPIME 2,000 MG in SYRINGE 0 ML IV SCH ×3 (06:23→21:59)
[2023-01-03] MEDS: FLUTICASONE FUROATE 200MCG 14 PUFFS/INHALER INH SCH (08:26)
[2023-01-03] MEDS: guaiFENesin 600 MG TABCR PO SCH ×2 (08:26→19:27)
[2023-01-03] MEDS: GABAPENTIN 100 MG CAP PO SCH ×2 (08:26→19:27)
[2023-01-03] MEDS: NON-FORMULARY PATIENT'S OWN MED PO SCH (08:27)
[2023-01-03] MEDS: PANTOprazole 40 MG TAB PO SCH ×2 (08:27→19:27)
[2023-01-03] MEDS: UMECLIDINIUM/VILANTEROL 62.5/25MCG 7 PUFFS/INHALER INH SCH (08:27)
[2023-01-03] MEDS: DULoxetine HCL 60 MG CAP PO SCH (08:27)
[2023-01-03] MEDS: RIVAROXABAN 20 MG TAB PO SCH (08:27)
[2023-01-03] MEDS: OFLOXACIN 0.3% 75 DROPS/5 ML BTL OT SCH ×2 (08:28→19:27)
[2023-01-03] MEDS: DOCUSATE SODIUM 100 MG CAP PO SCH ×2 (08:28→19:27)
[2023-01-03] MEDS: CHOLECALCIFEROL 1,000 UNITS 25 MCG TAB PO SCH (08:28)
[2023-01-03] MEDS: AZITHROMYCIN 250 MG TAB PO SCH (19:26)
[2023-01-03] MEDS: VERAPAMIL HCL 120 MG TABCR PO SCH (19:27)
--- NOTE | 2023-01-03 19:33 | Hospitalist Progress Note ---
Date of Service January 03, 2023 Assessment & Plan (1) Community acquired bacterial pneumonia: (2) Sepsis: (3) Bronchiectasis: (4) Hx pulmonary embolism: (5) Anxiety: (6) Hypothyroidism (acquired): (7) ÁNGEL (obstructive sleep apnea): Admission and Anticipated Discharge Date Admission Date: January 01, 2023 Results & Data Results & Data Vital Signs (Past 12 Hours) Vital Signs Temp Pulse Pulse Resp BP Pulse Ox O2 Del Method 01/03/23 18:51 113 H 18 91 Room Air 01/03/23 15:00 97 H 01/03/23 15:19 37 C 62 18 110/68 92 Room Air 01/03/23 13:39 102 H 16 93 Room Air 01/03/23 10:47 36.9 C 98 H 20 109/64 93 Room Air 01/03/23 08:00 84 PG Care Time/CCT Total # of Minutes Spent Total Time Spent with Patient: Total time spent is greater than 50% in coordination of care (as documented) at patient's floor/unit and/or counseling patient: Coding Level of Care Code 31956 SUB INP/OBS CARE 2/35MIN Diagnoses Community acquired bacterial pneumonia J15.9 Sepsis A41.9 Bronchiectasis J47.9 Hx pulmonary embolism Z86.711 Anxiety F41.9 Hypothyroidism (acquired) E03.9 ÁNGLE (obstructive sleep apnea) G47.33
--- NOTE | 2023-01-03 19:43 | Hospitalist Progress Note ---
Date of Service January 03, 2023 Assessment & Plan (1) Community acquired bacterial pneumonia: Present on Admission?: Yes (2) Sepsis: (3) Bronchiectasis: (4) Hx pulmonary embolism: (5) Anxiety: (6) Hypothyroidism (acquired): (7) ÁNGEL (obstructive sleep apnea): Admission and Anticipated Discharge Date Admission Date: January 01, 2023 Subjective Today patient is starting to feel better and I reviewed his use BiPAP plus oxygen 2 L during the daytime hours and oxygen 2 L during the daytime hours if needed for shortness of breath. He is willing and able to go home tomorrow if he is 75% better by the assessment tomorrow on rounds. Patient is under care of Dr. Rossi at [facility] and also Dr. Morrissey for pulmonary care. Review of Systems Review of Systems: Uses mobility devices due to CMT [id number]. Constitutional: Patient is on lifelong systemic anticoagulation due to blood clots in his legs lungs and heart. Eyes: No complaint Respiratory: Better air movement Cardiovascular: Additional Comments: No chest pain Gastrointestinal: No bowel complaint Allergy / Immunological: Allergy to Cipro causing some problems with legs and oxycodone causing nausea and vomiting Physical Exam Eyes: PERRLA EOMI Neck: Short neck would be a difficult intubation Respiratory: Bibasilar diminished breath sounds Cardiovascular: RRR, no murmur, no edema Gastrointestinal (Abdomen): normal bowel sounds, soft, nontender, no hepatosplenomegaly Results & Data Results & Data Vital Signs (Past 12 Hours) Vital Signs Temp Pulse Pulse Pulse Resp BP Pulse Ox 01/03/23 19:32 36.8 C 102 H 20 123/66 93 01/03/23 18:51 113 H 18 91 01/03/23 15:00 97 H 01/03/23 15:19 37 C 62 18 110/68 92 01/03/23 13:39 102 H 16 93 01/03/23 10:47 36.9 C 98 H 20 109/64 93 01/03/23 08:00 84 O2 Del Method 01/03/23 19:32 Room Air 01/03/23 18:51 Room Air 01/03/23 15:00 01/03/23 15:19 Room Air 01/03/23 13:39 Room Air 01/03/23 10:47 Room Air 05/29/23 08:00 PG Care Time/CCT Total # of Minutes Spent Total Time Spent with Patient: Total time spent is greater than 50% in coordination of care (as documented) at patient's floor/unit and/or counseling patient: Coding Level of Care Code 62579 SUB INP/OBS CARE 2/35MIN Diagnoses Community acquired bacterial pneumonia J15.9 Sepsis A41.9 Bronchiectasis J47.9 Hx pulmonary embolism Z86.711 Anxiety F41.9 Hypothyroidism (acquired) E03.9 ÁNGEL (obstructive sleep apnea) G47.33 Time Spent (min) 42
[2023-01-04] MEDS ORDERED: LEVALBUTEROL 1.25 MG/3 ML NEB ONE ×3 (01:00→19:24)
[2023-01-04] MEDS: LEVALBUTEROL 1.25MG/0.5ML NEB NEB SCH ×3 (01:03→13:06)
[2023-01-04] MEDS ORDERED: Nursing to Pharmacy Communication SCH (05:45)
[2023-01-04] MEDS: LEVOTHYROXINE SODIUM 50 MCG TABLET PO SCH (05:50)
[2023-01-04] MEDS: CEFEPIME 2,000 MG in SYRINGE 0 ML IV SCH ×2 (05:50→13:55)
[2023-01-04] MEDS: GABAPENTIN 100 MG CAP PO SCH ×2 (08:01→19:31)
[2023-01-04] MEDS: RIVAROXABAN 20 MG TAB PO SCH (08:01)
[2023-01-04] MEDS: guaiFENesin 600 MG TABCR PO SCH ×2 (08:01→19:31)
[2023-01-04] MEDS: CHOLECALCIFEROL 1,000 UNITS 25 MCG TAB PO SCH (08:01)
[2023-01-04] MEDS: OFLOXACIN 0.3% 75 DROPS/5 ML BTL OT SCH ×2 (08:02→19:32)
[2023-01-04] MEDS: FLUTICASONE FUROATE 200MCG 14 PUFFS/INHALER INH SCH (08:02)
[2023-01-04] MEDS: DULoxetine HCL 60 MG CAP PO SCH (08:02)
[2023-01-04] MEDS: UMECLIDINIUM/VILANTEROL 62.5/25MCG 7 PUFFS/INHALER INH SCH (08:02)
[2023-01-04] MEDS: DOCUSATE SODIUM 100 MG CAP PO SCH ×2 (08:02→19:32)
[2023-01-04] MEDS: NON-FORMULARY PATIENT'S OWN MED PO SCH (08:02)
[2023-01-04] MEDS: AZITHROMYCIN 250 MG TAB PO SCH (19:31)
[2023-01-04] MEDS: VERAPAMIL HCL 120 MG TABCR PO SCH (19:31)
== END 2023-01-04 20:36 | disposition home or self-care (01) | DRG 871 ==
LOC: ED 13:36 → SUATTDRO 17:10 → 2S 17:10

== ENCOUNTER 2024-09-30 12:32 | Inpatient (IN) ==
--- NOTE | 2024-09-30 12:49 | Emergency Department Note ---
Impression & Plan Acute exacerbation of chronic obstructive pulmonary disease, Infection due to human metapneumovirus (hMPV), BENAVIDES (dyspnea on exertion), CMT (Mvhvuts-Ozium-Ytcir disease) ED Provider Note NAME: ANGEL DANIELS AGE: 49 SEX: M : 1975 ARRIVES VIA: Walk-In INFORMANT: Patient, ED PROVIDER(S): Eric See MD CHIEF COMPLAINT: Shortness of breath MEDICAL DECISION MAKING: Patient presents primarily due to shortness of breath. IV was established and blood work was obtained along with an EKG troponin chest x-ray. Bio fire obtained. Patient was ordered DuoNeb treatments x 2 in addition to IV methylprednisolone. IV fluids also ordered. Patient's blood work showed a leukopenia with mild anemia hemoglobin 12.7. This is chronic in patient's baseline. Platelet count is unremarkable. Electrolytes unremarkable BSG 112. Troponin is not elevated. BioFire positive for human metapneumovirus likely cause of the patient's symptoms. Chest x-ray does not show obvious evidence of pneumonia. Upon reassessment the patient states that he was feeling a bit improved but still was having some difficulty with breathing. Patient did undergo an ambulatory trial was never truly hypoxic but the patient did have increased work of breathing was tachypneic and tachycardic. It was felt the patient would be better suited for inpatient given the patient's CMT COPD and lung treatments that could be provided in hospital. Patient was ordered additional IV fluids. I did speak the on-call hospitalist service Dr. Garcia and the patient was admitted to the medicine service. Discussion w/ other healthcare providers: Natalia Leos PA-C and Dr. Garcia inpatient medicine service Prior /Outside records reviewed: I reviewed part of a primary care visit from August 20, 2024 from Marco Lantigua. Patient did have a comminuted fracture of the patella. Patient with a history of chronic respiratory failure with hypoxia ÁNGEL on BiPAP pulmonary hypertension COPD and asthma. Long-term use of anticoagulant daily Xarelto. History of PE. Also history of Duvawjw-Vvicm-Fchcw. Differential diagnosis: Reactive airway disease, pneumonia, pneumothorax, COPD, CHF, ACS, pulmonary embolism, musculoskeletal, GERD as well as other pathologies were considered. Diagnostics, as interpreted by me: ECG: Sinus tachycardia, rate of 113, normal intervals, normal axis no ST elevations. Cardiac monitoring: An order was placed for continuous cardiac monitoring. The monitor shows a rate of 112 with tachycardic and regular rhythm. Patient was placed on pulse oximetry Medical decision rules: None Imaging studies: I informally interpreted the patient's chest x-ray does not show obvious pneumonia with formal report to follow. HPI: Patient presents due to concern for cough for the last 2 days. The patient states that he has felt as though worsening shortness of breath these last 2 days with associated pain in the chest with coughing. Patient states that he did use his percussion vest as well as nebulizer treatments and was able to expectorate some amount of whitish with yellow-tinged sputum. Patient does have a known history of COPD and CMT. Borderline compromised immune system to where the patient will require repeat injections/vaccinations to where he gets his titers checked through Dr. Landrum's office with allergy and immunology. Patient denies any recent travel or known sick contacts. Patient denies any smoking history. Patient states that he was feeling a little short of breath today and thus put on his 2 L of oxygen which she wears at nighttime and was only about 90% on the 2 L. Patient states that he is short of breath after coughing fits and especially with activity. Patient did fracture his patella about 6 weeks ago and is currently in a brace. Patient denies any leg swelling or calf pain. Patient is compliant with his medications. PAST MEDICAL HISTORY: See Below PAST SURGICAL HISTORY: See Below SOCIAL HISTORY: See Below HOME MEDICATIONS: See Below ALLERGIES: See Below VITALS: See Below PHYSICAL EXAMINATION: GENERAL: NAD, non-toxic. Wearing glasses. Patient states that his appetite may be a bit diminished but he still eating and drinking. EYE EXAM: Normal conjunctiva. PERRL, no anisocoria and EOM's grossly intact w/o pain. OROPHARYNX: Moist mucus membranes, grossly normal dentition. NECK: Trachea midline, no stridor. Supple, no nuchal rigidity, no adenopathy, non-tender. No signs of meningismus. FROM of the neck with good chin to chest and neck extension. LUNGS: Diminished breath sounds. Stuttering inspiratory and expiratory breathing. HEART: NSR, no MRG. ABDOMEN: Abdomen soft, non-tender, no masses, no rebound or guarding. BACK: No CVA TTP. SKIN: No rashes and no bruising. UPPER EXTREMITIES: Upper extremities are grossly normal. LOWER EXTREMITIES: Grossly normal, no edema. Right lower extremity in knee immobilizer brace. NEURO EXAM: A&O x3, cranial nerves II-XII grossly intact, normal speech, moves all 4 extremities. Past Med/Surg History Problem List (Updated 09/30/24 @ 18:27 by Eric See MD) BENAVIDES (dyspnea on exertion) (Acute) Infection due to human metapneumovirus (hMPV) (Acute) Acute exacerbation of chronic obstructive pulmonary disease (Acute) Infection due to human metapneumovirus (hMPV) Comminuted fracture of patella Incomplete emptying of bladder Urinary hesitancy upcoming urology eval apr 25 2024 Urinary symptom or sign Adenomatous colon polyp Knee effusion, left Pulmonary hypertension ÁNGEL treated with BiPAP Chronic respiratory failure with hypoxia CMT (Rerlekm-Jctow-Qhizv disease) (Acute) Ataxia Dysphagia Irritable bowel syndrome with constipation Abnormal gait Due to neuropathy Uses wheeled walker On home oxygen therapy 2L via Bipap every night Idiopathic polyneuropathy Vocal cord dysfunction Hypogammaglobulinemia COPD (chronic obstructive pulmonary disease) case management patient Severe persistent asthma (Chronic) uses inhalers/nebulizer daily and prn Long-term (current) use of anticoagulants, INR goal 2.5-3.5 xarelto daily Chronic reflux esophagitis (Acute) Anxiety Hypothyroidism (acquired) (Chronic) Hx pulmonary embolism (~2015) Reason for Xarelto daily Osteoporosis GERD (gastroesophageal reflux disease) (Chronic) On pantoprazole Esophageal spasm Tx with verapamil Medical History History of esophageal spasm carbonated beverage will flare. Acid reflux History of pulmonary embolism several, most recent approx 2021 - unknown etiology. CMT (Kayzpuq-Hgcqa-Eejhh disease) IBS (irritable bowel syndrome) Sleep apnea bipap , 02 2 L HS. Right knee DJD Osteoporosis Vocal cord dysfunction Asthma last use rescue inhlaer a few days ago. Ataxia History of vitamin D deficiency History of pneumonia History of anemia ? maybe borderline Rotator cuff tear, right Osteoarthritis, shoulder Scoliosis followed by [facility] Degenerative joint disease (DJD) of lumbar spine Venous insufficiency Bronchiectasis FOLLOWS WITH PULMONARY--multiple inhalers/nebulizer Chronic respiratory failure ? official dx details. Pt is not sure. History of blood transfusion 2018 Medial meniscus tear Patellofemoral arthrosis Perforation of right tympanic membrane Chronic otitis media of left ear after insertion of tympanic ventilation tube COPD (chronic obstructive pulmonary disease) pt is not sure if official dx. 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 No changes that pt aware of. Pectus excavatum Hypothyroidism Mastoiditis, chronic Surgical History Status post left knee replacement (~04/2023) Status post left hip replacement (~10/2021) History of esophagogastroduodenoscopy (EGD) last 03/10/21 @ [facility] History of colonoscopy 09/2020 repeat 3 yrs History of tooth extraction History of bilateral cataract extraction History of cardiac cath (~04/15/20) 2019 @ [facility] d/t experiencing chest pain--No stents placed History of bronchoscopy multiple S/P total hip arthroplasty Right. 10/11/2018: SAB at L3-L4. Anesthesia post-op progress note: hypotensive and tachycardic intraoperatively with over 700 ml of blood loss. He was given one unit of PRBC in the OR. In PACU, he was given 2000 ml of LR in PACU which caused HR to come down to the 70s from 110s and SBP to the 90s up from the 80s. His postop hgb was 9.[address] Perry is aware. The patient is otherwise awake and comfortable. History of placement of ear tubes 12/26/2020 LMA#5. No postop issues per anesthesia progress note. Hx of hemorrhoidectomy History of ear surgery X4 Family History Mother Osteoporosis Father Prostate cancer Coronary heart disease Unknown Prostate cancer Grandmother (Paternal) Family history of diabetes mellitus Other Allergies Asthma Cancer Diabetes Hearing loss Heart disease No family history of adverse response to anesthesia No family history of bleeding disorder Stroke Denies family history of Hypertension Social History Smoking Status: Never smoker Second Hand Exposure: No; Do You Dip or Chew Tobacco: No; Hx Alcohol Use: No Hx Substance Use: No Preferred Language: Romanian Communication Ability: Effective Communication Ability Comment: communication effective, pt is slow speaker. 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 How many Children do You have: 1 Feels Safe at Home: Yes Childhood Exposure to Second-Hand Smoke: No Diet: low carbohydrate caffeine: No Physical Activity Frequency: Daily Physical Activity Frequency Comment: walks Seatbelt Use: always Sunscreen Use: Yes Do you think of yourself as: straight/heterosexual Assistive Devices: BiPap, Glasses, Hearing Aid - Bilateral, Oxygen - at Night and Other Allergies Allergies Allergy/AdvReac Type Severity Reaction Status Date / Time gluten Allergy Unknown STOMACH Verified 09/30/24 16:53 ISSUES ciprofloxacin AdvReac Unknown issue with Verified 09/30/24 16:53 legs , pain. oxycodone AdvReac Unknown n/v Verified 09/30/24 16:53 Home Meds Home Medications Medication Instructions Recorded Confirmed calcium 600 mg (as 1 tab PO BID 09/05/18 09/30/24 carbonate)-vitamin D3 10 mcg (400 unit) tablet (Calcium 600 + D(3)) multivitamin 1 tab PO QAM 09/05/18 09/30/24 diclofenac sodium 1 % topical gel 4 g topical BID PRN Pain 01/13/19 09/30/24 ascorbic acid (vitamin C) 500 mg 1,000 mg PO QAM 03/27/19 09/30/24 tablet cholecalciferol (vitamin D3) 50 2,000 units PO QAM 03/27/19 09/30/24 mcg (2,000 unit) capsule epinephrine 0.3 mg/0.3 mL 0.3 mg IM Q15M PRN Anaphylaxis 09/17/19 09/30/24 injection, auto-injector (EpiPen 2-Dustin) denosumab 60 mg/mL subcutaneous 60 mg subcut .every 6 months 02/09/22 09/30/24 syringe (Prolia) levalbuterol HCl 1.25 mg/3 mL 1.25 mg inhalation BID asthma 10/28/22 09/30/24 solution for nebulization omega-3 fatty acids 1,000 mg 1,000 mg PO QAM 01/01/23 09/30/24 capsule azelastine 137 mcg (0.1 %) nasal 2 spray intranasal QAM 02/20/23 09/30/24 spray lamotrigine 25 mg tablet 25 mg PO HS 02/20/23 09/30/24 docusate sodium 100 mg tablet 100 mg PO QAM Constipation 07/26/23 09/30/24 (Stool Softener) amoxicillin 500 mg tablet 2,000 mg PO UD PRN pre dental 04/19/24 09/30/24 levalbuterol tartrate 45 1 puff inhalation UD PRN asthma 04/19/24 09/30/24 mcg/actuation aerosol inhaler montelukast 10 mg tablet 10 mg PO QAM 04/19/24 09/30/24 pantoprazole 40 mg tablet,delayed 40 mg PO QAM 04/19/24 09/30/24 release ofloxacin 0.3 % ear drops 5 drp otic (ear) .every 3 days 08/20/24 09/30/24 tezepelumab-ekko 210 mg/1.91 mL 210 mg subcut MONTHLY 09/30/24 09/30/24 (110 mg/mL) subcutaneous syringe (Tezspire) Previous Rx's Medication Instructions Recorded methocarbamol 750 mg tablet 750 mg PO TID PRN muscle spasm #30 12/28/22 tabs budesonide 0.5 mg/2 mL suspension 0.5 mg (2 mL) inhalation BID #360 10/26/23 for nebulization mL Hospital Bed Homecare #1 ea 12/09/23 arformoterol 15 mcg/2 mL solution 2 ml inhalation BID #360 mL 04/02/24 for nebulization levothyroxine 50 mcg tablet 50 mcg PO QAM #90 tabs 04/04/24 rivaroxaban 20 mg tablet (Xarelto) 20 mg PO QAM #90 tabs 04/04/24 sodium chloride 7 % for 1 inh inhalation BID #360 mL 05/10/24 nebulization duloxetine 60 mg capsule,delayed 60 mg PO BID #180 caps 06/15/24 release clonazepam 0.5 mg tablet (Klonopin) 1 mg (2 x 0.5 mg) PO BID #180 tabs 06/22/24 verapamil 120 mg tablet,extended 120 mg PO HS #90 tabs 08/03/24 release gabapentin 300 mg capsule 300 - 600 mg (1 - 2 x 300 mg) PO 08/09/24 TID #270 caps tramadol 50 mg tablet 50 mg PO Q6H PRN pain #30 tabs 08/23/24 Results & Data (ED) Vital Signs Vital Signs - 24 hr 09/30/24 12:40 09/30/24 12:59 09/30/24 13:06 Temperature 36.6 C Temperature Source Temporal Artery Scan Pulse Rate 120 H 116 H 113 H Pulse Rate [Apical] Pulse Rate [Exercises] Pulse Rate [Resting] Pulse Rate from SpO2 Sensor Pulse Strength [Apical] Respiratory Rate 20 22 Respiratory Rate [Exercises] Respiratory Rate [Resting] Respiratory Effort / Characteristics Non-Labored Spontaneous Respiratory Depth Normal Respiratory Pattern Regular Blood Pressure 113/76 102/76 Blood Pressure [Left Arm] Blood Pressure Mean 88 84 Blood Pressure Mean [Left Arm] Pulse Oximetry 96 94 Pulse Oximetry [Exercises] Pulse Oximetry [Resting] Oxygen Delivery Method Room Air Room Air Sepsis Recent Fever Within 48 Hours No Sepsis New/Unexplained Change in Mental Status N/A Sepsis Action Taken by Nursing No Action Required 09/30/24 14:15 09/30/24 14:15 09/30/24 15:00 Temperature Temperature Source Pulse Rate 108 H Pulse Rate [Apical] 102 H Pulse Rate [Exercises] Pulse Rate [Resting] Pulse Rate from SpO2 Sensor Pulse Strength [Apical] Normal Respiratory Rate 26 H 23 Respiratory Rate [Exercises] Respiratory Rate [Resting] Respiratory Effort / Characteristics SOB on Exertion Respiratory Depth Normal Respiratory Pattern Regular Blood Pressure 122/79 Blood Pressure [Left Arm] 122/72 Blood Pressure Mean 87 Blood Pressure Mean [Left Arm] 88 Pulse Oximetry 93 93 92 Pulse Oximetry [Exercises] Pulse Oximetry [Resting] Oxygen Delivery Method Room Air Room Air Room Air Sepsis Recent Fever Within 48 Hours Sepsis New/Unexplained Change in Mental Status Sepsis Action Taken by Nursing 09/30/24 15:30 09/30/24 15:52 09/30/24 16:00 Temperature Temperature Source Pulse Rate 104 H 108 H Pulse Rate [Apical] Pulse Rate [Exercises] 130 H Pulse Rate [Resting] 110 H Pulse Rate from SpO2 Sensor 107 H Pulse Strength [Apical] Respiratory Rate 22 34 H Respiratory Rate [Exercises] 32 H Respiratory Rate [Resting] 30 H Respiratory Effort / Characteristics Respiratory Depth Respiratory Pattern Blood Pressure 124/79 112/83 Blood Pressure [Left Arm] Blood Pressure Mean 91 92 Blood Pressure Mean [Left Arm] Pulse Oximetry 96 92 Pulse Oximetry [Exercises] 93 Pulse Oximetry [Resting] 96 Oxygen Delivery Method Room Air Room Air Room Air Sepsis Recent Fever Within 48 Hours Sepsis New/Unexplained Change in Mental Status Sepsis Action Taken by Nursing 09/30/24 16:25 09/30/24 16:36 Temperature Temperature Source Pulse Rate 110 H Pulse Rate [Apical] Pulse Rate [Exercises] Pulse Rate [Resting] Pulse Rate from SpO2 Sensor 111 H Pulse Strength [Apical] Respiratory Rate 29 H Respiratory Rate [Exercises] Respiratory Rate [Resting] Respiratory Effort / Characteristics Respiratory Depth Respiratory Pattern Blood Pressure 122/76 Blood Pressure [Left Arm] Blood Pressure Mean 91 Blood Pressure Mean [Left Arm] Pulse Oximetry 92 92 Pulse Oximetry [Exercises] Pulse Oximetry [Resting] Oxygen Delivery Method Room Air Sepsis Recent Fever Within 48 Hours Sepsis New/Unexplained Change in Mental Status Sepsis Action Taken by Residential Medications Current Medication List: was personally reviewed by me Laboratory Data Attestation: I reviewed the patient's lab results. 09/30/24 13:11 09/30/24 13:11 Lab Results 09/30/24 Range/Units 13:11 WBC 3.09 L (4.8-10.8) K/ul RBC 4.50 L (4.70-6.10) M/uL Hgb 12.7 L (14.0-18.0) g/dl Hct 39.7 L (42.0-52.0) % MCV 88.2 (80.0-100.0) fL MCH 28.2 (25.0-34.0) pg MCHC 32.0 (32.0-36.0) g/dL RDW Std Deviation 57.6 H (36.4-46.3) fL RDW Coeff of Ligia 17.8 H (11.5-14.5) % Plt Count 142 (130-400) K/uL MPV 9.4 (9.4-12.4) fL Immature Gran % (Auto) 0.0 % Neut % (Auto) 74.4 % Lymph % (Auto) 15.9 % Hayes % (Auto) 9.1 % Eos % (Auto) 0.3 % Baso % (Auto) 0.3 % Neut # (Auto) 2.30 (1.40-6.50) K/uL Lymph # (Auto) 0.49 L (1.20-3.40) K/uL Hayes # (Auto) 0.28 (0.11-0.59) K/uL Eos # (Auto) 0.01 (0.00-0.50) K/uL Baso # (Auto) 0.01 (0.00-0.20) K/uL Immature Gran # (Auto) 0.00 L (0.01-0.20) K/uL PT 13.5 H (9.0-12.0) Seconds INR 1.3 H (0.9-1.1) APTT 37 H (21-31) Seconds PTT Ratio 1.4 Sodium 139 (136-145) mmol/L Potassium 3.6 (3.5-5.1) mmol/L Chloride 104 (98-107) mmol/L Carbon Dioxide 27 (21-32) mmol/L Anion Gap 8 (3-11) BUN 14 (6-23) mg/dl Creatinine 0.71 (0.6-1.4) mg/dl Est Cr Clr Drug Dosing 124.5 ml/min eGFR 111.77 BUN/Creatinine Ratio 19.7 (10-20) Glucose 112 H (70-99(Fasting)) mg/dl Calcium 9.1 (8.6-10.3) mg/dl Magnesium 1.7 (1.7-2.4) mg/dl Total Bilirubin 0.7 (0.2-1.0) mg/dl AST 22 (13-39) U/L ALT 31 (7-52) U/L Alkaline Phosphatase 95 (34-104) U/L Troponin I High Sens 2.4 (0-20) pg/ml Total Protein 7.2 (6.0-8.3) gm/dl Albumin 4.3 (3.4-5.0) gm/dl Globulin 2.9 (2.5-4.0) gm/dl Albumin/Globulin Ratio 1.5 (0.9-2) Adenovirus (PCR) Not Detected (NotDetected) B. pertussis DNA (PCR) Not Detected (NotDetected) B.parapertussis DNA PCR Not Detected (NotDetected) C. pneumoniae DNA (PCR) Not Detected (NotDetected) Coronavirus OC43 (PCR) Not Detected (NotDetected) Coronavirus HKU1 (PCR) Not Detected (NotDetected) Coronavirus 229E (PCR) Not Detected (NotDetected) SARS-CoV-2 (PCR) Not Detected (NotDetected) Coronavirus NL63 (PCR) Not Detected (NotDetected) Human Metapneumovir PCR DETECTED A (NotDetected) Influenza Type A (PCR) Not Detected (NotDetected) Influenza Type B (PCR) Not Detected (NotDetected) M. pneumoniae (PCR) Not Detected (NotDetected) Parainfluenza 1 (PCR) Not Detected (NotDetected) Parainfluenza 2 (PCR) Not Detected (NotDetected) Parainfluenza 3 (PCR) Not Detected (NotDetected) Parainfluenza 4 (PCR) Not Detected (NotDetected) RSV (PCR) Not Detected (NotDetected) Entero/Rhino (PCR) Not Detected (NotDetected) Administered Medications Discontinued Medications Albuterol (Albut/Ipratrop 3mg/0.5mg Neb 3 Ml Vial) 6 ml INH NOW STA Stop: 09/30/24 13:03 Last Admin: 09/30/24 13:19 Dose: 6 ml Documented By: GIO Azithromycin (Azithromycin 250 Mg Tab) 500 mg PO NOW ONE Stop: 09/30/24 16:36 Last Admin: 09/30/24 17:03 Dose: 500 mg Documented By: MOOSE Sodium Chloride (Nss) 1,000 mls @ 999 mls/hr IV .Q1H1M ONE Stop: 09/30/24 16:57 Last Admin: 09/30/24 17:04 Dose: 999 mls/hr Documented By: MOOSE Methylprednisolone (Methylprednisolone 125 Mg/2 Ml Vial) 125 mg IV NOW STA Stop: 09/30/24 13:03 Last Admin: 09/30/24 13:18 Dose: 125 mg Documented By: GIO Imaging Data Radiologist's Impression: Chest X-Ray 09/30/24 13:02 Chest radiograph, one view History: Dyspnea Comparison: October 19, 2021 Findings/Impression: The cardiac silhouette appears enlarged. There is prominence of the hilar pulmonary vasculature suggesting pulmonary venous hypertension. There may be early pulmonary edema. No focal consolidation. No pneumothorax. No visualized pleural effusion. Degenerative changes of the spine. Mid thoracic spine compression deformities appear chronic and present on prior. Electronically signed by Barrington Roger 09-30-2024 2:12 PM Discharge Plan Visit Data Chief Complaint: Cough Stated Complaint: COUGH CHEST HURT, PULSE OX LOW EVEN WITH OX ED Provider: Eric See Discharge Problem: Acute exacerbation of chronic obstructive pulmonary disease, Infection due to human metapneumovirus (hMPV), BENAVIDES (dyspnea on exertion), CMT (Eilwxmn-Lordv-Fqokh disease) Forms Stand Alone Forms: [facility] [place] [employer] Prescriptions Prescriptions: No Action budesonide 0.5 mg/2 mL suspension for nebulization 0.5 mg INHALATION BID Qty: 360 3RF arformoterol 15 mcg/2 mL solution for nebulization 2 ml INHALATION BID Qty: 360 1RF Xarelto 20 mg tablet 20 mg PO QAM Qty: 90 1RF levothyroxine 50 mcg tablet 50 mcg PO QAM Qty: 90 3RF sodium chloride 7 % solution for nebulization 1 inh inhalation BID Qty: 360 0RF clonazepam [Klonopin] 0.5 mg tablet 1 mg PO BID Qty: 180 1RF verapamil 120 mg tablet extended release 120 mg PO HS Qty: 90 3RF gabapentin 300 mg capsule 300 - 600 mg PO TID Qty: 270 1RF Rx Instructions: 300mg am, 300 noon, 600mg nightly orally three times a day; docusate sodium [Stool Softener] 100 mg tablet 100 mg PO QAM methocarbamol 750 mg tablet 750 mg PO TID PRN (Reason: muscle spasm) Qty: 30 0RF ascorbic acid (vitamin C) 500 mg tablet 1,000 mg PO QAM cholecalciferol (vitamin D3) 2,000 unit capsule 2,000 units PO QAM tramadol 50 mg tablet 50 mg PO Q6H PRN (Reason: pain) Qty: 30 0RF (DME) Hospital Bed Homecare Misc See Rx Instructions .Route Qty: 1 0RF Rx Instructions: As directed duloxetine 60 mg capsule,delayed release(DR/EC) 60 mg PO BID Qty: 180 3RF multivitamin Tablet 1 tab PO QAM calcium carbonate-vitamin D3 [Calcium 600 + D(3)] 600 mg(1,500mg) -400 unit Tablet 1 tab PO BID epinephrine [EpiPen 2-Dustin] 0.3 mg/0.3 mL auto-injector 0.3 mg IM Q15M PRN (Reason: Anaphylaxis) Patient 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 Prolia 60 mg/mL syringe 60 mg subcut .every 6 months Patient Comments: upcoming Sep 04 2024 Rx Instructions: next april diclofenac sodium 1 % Gel 4 g TOPICAL BID PRN (Reason: Pain) levalbuterol HCl 1.25 mg/3 mL solution for nebulization 1.25 mg INH BID Patient Comments: pt states uses every am and then Q4hrs when needed omega-3 fatty acids 1,000 mg Capsule 1,000 mg PO QAM lamotrigine 25 mg tablet 25 mg PO HS azelastine 137 mcg (0.1 %) Aerosol,Barto 2 spray INTRANASAL QAM Rx Instructions: administer into each nostril Tezspire 210 mg/1.91 mL (110 mg/mL) syringe 210 mg subcut MONTHLY levalbuterol tartrate 45 mcg/actuation Hfa Aerosol Inhaler 1 puff INHALATION UD PRN (Reason: asthma) amoxicillin 500 mg tablet 2,000 mg PO UD PRN (Reason: pre dental) Rx Instructions: 4 tabs 1 hour prior to procedure pantoprazole 40 mg tablet,delayed release (DR/EC) 40 mg PO QAM Rx Instructions: TAKE 1 TABLET DAILY IN THE MORNING montelukast 10 mg tablet 10 mg PO QAM ofloxacin 0.3 % drops 5 drp otic (ear) .every 3 days Patient Comments: 5 drops each ear every 3 days. Rx Instructions: 2 bottles per month, administed 3 month (6 bottles) supply Referrals Referrals: Marco Lantigua DO [Primary Care Provider] -
[2024-09-30] MEDS: methylPREDNISolone 125 MG/2 ML VIAL IV STA (13:18)
[2024-09-30] MEDS: ALBUT/IPRATROP 3MG/0.5MG NEB 3 ML VIAL INH STA (13:19)
[2024-09-30 13:45] LABS: Albumin Globulin Ratio 1.5 (0.9-2); Albumin Level 4.3 gm/dl (3.4-5.0); BUN Creatinine Ratio 19.7 (10-20); Bilirubin,Total 0.7 mg/dl (0.2-1.0); Calcium 9.1 mg/dl (8.6-10.3); Creatinine Clr Calc Pharmacy 124.5 ml/min; Globulin 2.9 gm/dl (2.5-4.0); Magnesium 1.7 mg/dl (1.7-2.4); Potassium 3.6 mmol/L (3.5-5.1); Total Protein 7.2 gm/dl (6.0-8.3)
[2024-09-30 13:51] LABS: Basophils # (auto) 0.01 K/uL (0.00-0.20); Basophils % (auto) 0.3 %; Eosinophils # (auto) 0.01 K/uL (0.00-0.50); Eosinophils % (auto) 0.3 %; Hematocrit (blood only) 39.7 % (42.0-52.0); Hemoglobin 12.7 g/dl (14.0-18.0); Lymphocytes # (auto) 0.49 K/uL (1.20-3.40); Lymphocytes % (auto) 15.9 %; Mean Corpuscular Hemoglobin 28.2 pg (25.0-34.0); Mean Corpuscular Volume 88.2 fL (80.0-100.0); Mean Platelet Volume 9.4 fL (9.4-12.4); Monocytes # (auto) 0.28 K/uL (0.11-0.59); Monocytes % (auto) 9.1 %; Neutrophils % (auto) 74.4 %; Platelet Count 142 K/uL (130-400); RDW Coefficient of Variation 17.8 % (11.5-14.5); RDW Standard Deviation 57.6 fL (36.4-46.3); Troponin I High Sensitivity 2.4 pg/ml (0-20); White Blood Count 3.09 K/ul (4.8-10.8)
[2024-09-30 13:58] LABS: INR 1.3 (0.9-1.1); Partial Thromboplastin Ratio 1.4; Partial Thromboplastin Time 37 Seconds (21-31); Prothrombin Time 13.5 Seconds (9.0-12.0)
--- NOTE | 2024-09-30 14:12 | XRay Report ---
Chest radiograph, one view History: Dyspnea Comparison: October 19, 2021 Findings/Impression: The cardiac silhouette appears enlarged. There is prominence of the hilar pulmonary vasculature suggesting pulmonary venous hypertension. There may be early pulmonary edema. No focal consolidation. No pneumothorax. No visualized pleural effusion. Degenerative changes of the spine. Mid thoracic spine compression deformities appear chronic and present on prior. Electronically signed by Barrington oRger 09-30-2024 2:12 PM
[2024-09-30 14:27] LABS: Adenovirus PCR Not Detected (NotDetected); Bordetella parapertussis PCR Not Detected (NotDetected); Bordetella pertussis PCR Not Detected (NotDetected); Chlamydia pneumoniae PCR Not Detected (NotDetected); Coronavirus 229E PCR Not Detected (NotDetected); Coronavirus CoV-2 (COVID19)PCR Not Detected (NotDetected); Coronavirus HKU1 PCR Not Detected (NotDetected); Coronavirus NL63 PCR Not Detected (NotDetected); Coronavirus OC43PCR Not Detected (NotDetected); Human Metapneumovirus PCR DETECTED (NotDetected); Influenza A PCR Not Detected (NotDetected); Influenza B PCR Not Detected (NotDetected); Mycoplasma pneumoniae PCR Not Detected (NotDetected); Parainfluenza Virus 1 PCR Not Detected (NotDetected); Parainfluenza Virus 2 PCR Not Detected (NotDetected); Parainfluenza Virus 3 PCR Not Detected (NotDetected); Parainfluenza Virus 4 PCR Not Detected (NotDetected); Respiratory Syncytial VirusPCR Not Detected (NotDetected); Rhinovirus/Enterovirus PCR Not Detected (NotDetected)
[2024-09-30] MEDS ORDERED: ACETAMINOPHEN 325 MG TAB PO PRN (16:24)
--- NOTE | 2024-09-30 16:36 | History & Physical Report ---
Date of Service September 30, 2024 Assessment & Plan (1) Infection due to human metapneumovirus (hMPV): (2) COPD exacerbation: (3) Acute on chronic respiratory failure with hypoxia: Plan This is a 49 year old male with past medical history of pulmonary hypertension, COPD, Charcot Manda Tooth disease, GERD, osteoporosis, hx PE (2015) who presented to the ED on 09/30 with chief complaint of cough. #hMPV/COPD exacerbation Patient w/ ~2 days of cough and SOB. hx of COPD. Uses chest vest at home for coughing. CXR: negative for pneumonia BioFire + for Human metapneumovirus CBC w/ chronic leukopenia/anemia, appears stable w/ prior CBC BMP w/ stable electrolytes and kidney function Trop 2.4 IV Methylprednisolone 40mg BID starting 10/01 Chest vest ordered BID, Incentive spirometer Duonebs q6h scheduled. s/p Azithromycin 500mg in ED, continue 250mg PO daily x 4 additional days Isolation precautions O2 prn if sat falls below 90, currently 93 on room air AM CBC/BMP Chronic conditions: Mental Health: duloxetine, Lamotrigine Neuropathy: gabapentin Hypothyroidism: Levothyroxine GERD: PPI HTN: Verapamil Hx of PE: Xarelto DVT prophylaxis: Xarelto Code: full Case discussed w/ Dr. Garcia at time of admission. History of Present Illness Primary Care Provider: Marco Lantigua DO This is a 49 year old male with past medical history of pulmonary hypertension, COPD, Charcot Manda Tooth disease, GERD, osteoporosis, hx PE (2015) who presented to the ED on 09/30 with chief complaint of cough. Patient was seen and examined, present. Patient reports that for about the last two days he has been coughing and has been short of breath. He uses a cough vest at home that has been helping him produce mucus up. He admits to chest discomfort w/ deep breaths and coughing. He denies fever, chills, nausea, vomiting, diarrhea. Denies any urinary symptoms. Denies any lower extremity edema. he also recently fractured his right patella and has been following with Dr. Perry for this. He is compliant with his daily medications including his Xarelto. While in the ED, patient was found to be positive for human metapneumovirus. CXR was negative for pneumonia. He was given 125mg IV methylprednisolone and duoneb in the ED. Code status discussed w/ patient and he is a full code. Allergies Allergy/AdvReac Type Severity Reaction Status Date / Time gluten Allergy Unknown STOMACH Verified 09/30/24 16:53 ISSUES ciprofloxacin AdvReac Unknown issue with Verified 09/30/24 16:53 legs , pain. oxycodone AdvReac Unknown n/v Verified 09/30/24 16:53 Home Medications Medication Instructions Recorded Confirmed Type calcium 600 mg (as 1 tab PO BID 09/05/18 09/30/24 History carbonate)-vitamin D3 10 mcg (400 unit) tablet (Calcium 600 + D(3)) multivitamin 1 tab PO QAM 09/05/18 09/30/24 History diclofenac sodium 1 % topical gel 4 g topical BID PRN Pain 01/13/19 09/30/24 History ascorbic acid (vitamin C) 500 mg 1,000 mg PO QAM 03/27/19 09/30/24 History tablet cholecalciferol (vitamin D3) 50 2,000 units PO QAM 03/27/19 09/30/24 History mcg (2,000 unit) capsule epinephrine 0.3 mg/0.3 mL 0.3 mg IM Q15M PRN Anaphylaxis 09/17/19 09/30/24 History injection, auto-injector (EpiPen 2-Dustin) denosumab 60 mg/mL subcutaneous 60 mg subcut .every 6 months 02/09/22 09/30/24 History syringe (Prolia) levalbuterol HCl 1.25 mg/3 mL 1.25 mg inhalation BID asthma 10/28/22 09/30/24 History solution for nebulization methocarbamol 750 mg tablet 750 mg PO TID PRN muscle spasm #30 12/28/22 09/30/24 Rx tabs omega-3 fatty acids 1,000 mg 1,000 mg PO QAM 01/01/23 09/30/24 History capsule azelastine 137 mcg (0.1 %) nasal 2 spray intranasal QAM 02/20/23 09/30/24 History spray lamotrigine 25 mg tablet 25 mg PO HS 02/20/23 09/30/24 History docusate sodium 100 mg tablet 100 mg PO QAM Constipation 07/26/23 09/30/24 History (Stool Softener) Hospital Bed Homecare #1 ea 12/09/23 09/30/24 Rx arformoterol 15 mcg/2 mL solution 2 ml inhalation BID #360 mL 04/02/24 09/30/24 Rx for nebulization levothyroxine 50 mcg tablet 50 mcg PO QAM #90 tabs 04/04/24 09/30/24 Rx rivaroxaban 20 mg tablet (Xarelto) 20 mg PO QAM #90 tabs 04/04/24 09/30/24 Rx amoxicillin 500 mg tablet 2,000 mg PO UD PRN pre dental 04/19/24 09/30/24 History levalbuterol tartrate 45 1 puff inhalation UD PRN asthma 04/19/24 09/30/24 History mcg/actuation aerosol inhaler montelukast 10 mg tablet 10 mg PO QAM 04/19/24 09/30/24 History pantoprazole 40 mg tablet,delayed 40 mg PO QAM 04/19/24 09/30/24 History release sodium chloride 7 % for 1 inh inhalation BID #360 mL 05/10/24 09/30/24 Rx nebulization duloxetine 60 mg capsule,delayed 60 mg PO BID #180 caps 06/15/24 09/30/24 Rx release clonazepam 0.5 mg tablet (Klonopin) 1 mg (2 x 0.5 mg) PO BID #180 tabs 06/22/24 09/30/24 Rx verapamil 120 mg tablet,extended 120 mg PO HS #90 tabs 08/03/24 09/30/24 Rx release gabapentin 300 mg capsule 300 - 600 mg (1 - 2 x 300 mg) PO 08/09/24 09/30/24 Rx TID #270 caps ofloxacin 0.3 % ear drops 5 drp otic (ear) .every 3 days 08/20/24 09/30/24 History tramadol 50 mg tablet 50 mg PO Q6H PRN pain #30 tabs 08/23/24 09/30/24 Rx tezepelumab-ekko 210 mg/1.91 mL 210 mg subcut MONTHLY 09/30/24 09/30/24 History (110 mg/mL) subcutaneous syringe (Tezspire) azithromycin 250 mg tablet 250 mg PO QAM #2 tabs 10/02/24 Rx budesonide 0.5 mg/2 mL suspension 0.5 mg (2 mL) inhalation BID #360 10/02/24 Rx for nebulization mL prednisone 20 mg tablet 40 mg (2 x 20 mg) PO DAILY 3 days 10/02/24 Rx #6 tabs Past Med/Surg History Problem List (Updated 10/02/24 @ 23:30 by Abel Garcia MD) Acute on chronic respiratory failure with hypoxia BENAVIDES (dyspnea on exertion) (Acute) Infection due to human metapneumovirus (hMPV) (Acute) Acute exacerbation of chronic obstructive pulmonary disease (Acute) Infection due to human metapneumovirus (hMPV) Comminuted fracture of patella Incomplete emptying of bladder Urinary hesitancy upcoming urology eval apr 25 2024 Urinary symptom or sign Adenomatous colon polyp Knee effusion, left Pulmonary hypertension ÁNGEL treated with BiPAP Chronic respiratory failure with hypoxia CMT (Gqgqrnm-Ikxbj-Aiogt disease) (Acute) Ataxia Dysphagia Irritable bowel syndrome with constipation Abnormal gait Due to neuropathy Uses wheeled walker On home oxygen therapy 2L via Bipap every night Idiopathic polyneuropathy Vocal cord dysfunction Hypogammaglobulinemia COPD (chronic obstructive pulmonary disease) case management patient Severe persistent asthma (Chronic) uses inhalers/nebulizer daily and prn Long-term (current) use of anticoagulants, INR goal 2.5-3.5 xarelto daily Chronic reflux esophagitis (Acute) Anxiety Hypothyroidism (acquired) (Chronic) Hx pulmonary embolism (~2015) Reason for Xarelto daily Osteoporosis GERD (gastroesophageal reflux disease) (Chronic) On pantoprazole Esophageal spasm Tx with verapamil Medical History History of esophageal spasm carbonated beverage will flare. Acid reflux History of pulmonary embolism several, most recent approx 2021 - unknown etiology. CMT (Pwqnwgd-Mfmya-Bpktg disease) IBS (irritable bowel syndrome) Sleep apnea bipap , 02 2 L HS. Right knee DJD Osteoporosis Vocal cord dysfunction Asthma last use rescue inhlaer a few days ago. Ataxia History of vitamin D deficiency History of pneumonia History of anemia ? maybe borderline Rotator cuff tear, right Osteoarthritis, shoulder Scoliosis followed by [facility] Degenerative joint disease (DJD) of lumbar spine Venous insufficiency Bronchiectasis FOLLOWS WITH PULMONARY--multiple inhalers/nebulizer Chronic respiratory failure ? official dx details. Pt is not sure. History of blood transfusion 2018 Medial meniscus tear Patellofemoral arthrosis Perforation of right tympanic membrane Chronic otitis media of left ear after insertion of tympanic ventilation tube COPD (chronic obstructive pulmonary disease) pt is not sure if official dx. 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 No changes that pt aware of. Pectus excavatum Hypothyroidism Mastoiditis, chronic Surgical History Status post left knee replacement (~04/2023) Status post left hip replacement (~10/2021) History of esophagogastroduodenoscopy (EGD) last 03/10/21 @ [facility] History of colonoscopy 09/2020 repeat 3 yrs History of tooth extraction History of bilateral cataract extraction History of cardiac cath (~04/15/20) 2019 @ [facility] d/t experiencing chest pain--No stents placed History of bronchoscopy multiple S/P total hip arthroplasty Right. 10/11/2018: SAB at L3-L4. Anesthesia post-op progress note: hypoten sive and tachycardic intraoperatively with over 700 ml of blood loss. He was given one unit of PRBC in the OR. In PACU, he was given 2000 ml of LR in PACU which caused HR to come down to the 70s from 110s and SBP to the 90s up from the 80s. His postop hgb was 9.[address] Perry is aware. The patient is otherwise awake and comfortable. History of placement of ear tubes 12/26/2020 LMA#5. No postop issues per anesthesia progress note. Hx of hemorrhoidectomy History of ear surgery X4 Family History Mother Osteoporosis Father Prostate cancer Coronary heart disease Unknown Prostate cancer Grandmother (Paternal) Family history of diabetes mellitus Other Allergies Asthma Cancer Diabetes Hearing loss Heart disease No family history of adverse response to anesthesia No family history of bleeding disorder Stroke Denies family history of Hypertension Social History Smoking Status: Never smoker Second Hand Exposure: No; Do You Dip or Chew Tobacco: No; Hx Alcohol Use: No Hx Substance Use: No Preferred Language: Mosotho Communication Ability: Effective Communication Ability Comment: communication effective, pt is slow speaker. 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 No murmur. no LE edema Musculoskeletal: brace on R knee Psychiatric: A+Ox3, euthymic affect Results & Data Results & Data Vital Signs (Past 12 Hours) Vital Signs Temp Pulse Pulse Pulse Pulse Resp Resp 09/30/24 15:52 130 H 110 H 32 H 09/30/24 14:15 09/30/24 14:15 102 H 26 H 09/30/24 13:06 113 H 22 09/30/24 12:59 116 H 09/30/24 12:40 36.6 C 120 H 20 Resp BP BP Pulse Ox Pulse Ox Pulse Ox O2 Del Method 09/30/24 15:52 30 H 93 96 Room Air 09/30/24 14:15 93 Room Air 09/30/24 14:15 122/72 93 Room Air 09/30/24 13:06 102/76 94 Room Air 09/30/24 12:59 09/30/24 12:40 113/76 96 Room Air Code Status & VTE Plan VTE Prophylaxis Plan VTE Prophylaxis will be ordered: Yes Supervising Physician Co-Signing Physician Notes I personally saw and examined the patient. I independently reviewed the labs, EKG, imaging, problem list, medication list, past medical history and family history. I verified all go points and agree with Natalia Louis PA-C with the following exceptions and/or additions: 49-year-old male presents to the ER with a cough. Back pain when he coughs. Increased oxygen requirement. O/E HS RRR, no murmurs, Chest expiratory wheezing A/P Asthma / COPD exacerbation with human metapneumovirus - Solu-medrol, duonebs, formoterol, budesonide, azithromycin PG Care Time/CCT Total # of Minutes Spent Total Time Spent with Patient: Total time spent is greater than 50% in coordination of care (as documented) at patient's floor/unit and/or counseling patient: Coding Level of Care Code 23482 INT INP/OBS CARE 2/55MIN Diagnoses Infection due to human metapneumovirus (hMPV) B34.8 COPD exacerbation J44.1 Acute on chronic respiratory failure with hypoxia J96.21
[2024-09-30] MEDS: AZITHROMYCIN 250 MG TAB PO ONE (17:03)
[2024-09-30] MEDS: SODIUM CHLORIDE 0.9% 1,000 ML IV ONE (17:04)
[2024-09-30] MEDS ORDERED: traMADol HCL 50 MG TABLET PO PRN (19:26)
[2024-09-30] MEDS: ALBUT/IPRATROP 3MG/0.5MG NEB 3 ML VIAL NEB SCH (21:41)
[2024-09-30] MEDS: DULoxetine HCL 60 MG CAP PO SCH (21:41)
[2024-09-30] MEDS: VERAPAMIL HCL 120 MG TABCR PO SCH (21:42)
[2024-09-30] MEDS: GABAPENTIN 600 MG TAB PO SCH (21:42)
[2024-09-30] MEDS: lamoTRIgine 25 MG TAB PO SCH (21:42)
[2024-09-30] MEDS: BUDESONIDE 0.5 MG/2 ML VIAL (PULMICORT) NEB SCH (22:46)
[2024-09-30] MEDS: FORMOTEROL 20 MCG/2 ML VIAL NEB SCH (22:46)
[2024-10-01 04:05] LABS: Hematocrit (blood only) 39.6 % (42.0-52.0); Hemoglobin 12.6 g/dl (14.0-18.0); Mean Corpuscular Hemoglobin 27.5 pg (25.0-34.0); Mean Corpuscular Hgb Conc 31.8 g/dL (32.0-36.0); Mean Corpuscular Volume 86.3 fL (80.0-100.0); Mean Platelet Volume 9.3 fL (9.4-12.4); Platelet Count 151 K/uL (130-400); RDW Coefficient of Variation 17.4 % (11.5-14.5); Red Blood Count 4.59 M/uL (4.70-6.10); White Blood Count 3.85 K/ul (4.8-10.8)
[2024-10-01 04:31] LABS: BUN Creatinine Ratio 20.3 (10-20); Calcium 8.6 mg/dl (8.6-10.3); Creatinine Clr Calc Pharmacy 119.4 ml/min; Potassium 4.5 mmol/L (3.5-5.1)
[2024-10-01] MEDS: LEVOTHYROXINE SODIUM 50 MCG TABLET PO SCH (05:52)
[2024-10-01] MEDS ORDERED: methylPREDNISolone 10 mg/mL (For Ped Dose < 7mg) IV SCH (09:00)
[2024-10-01] MEDS: GABAPENTIN 300 MG CAP PO SCH (09:39)
[2024-10-01] MEDS: AZITHROMYCIN 250 MG TAB PO SCH (09:40)
[2024-10-01] MEDS: PANTOprazole 40 MG TAB PO SCH (09:40)
[2024-10-01] MEDS: DOCUSATE SODIUM 100 MG CAP PO SCH (09:41)
[2024-10-01] MEDS: methylPREDNISolone 40 MG in SYRINGE 0 ML IV SCH (09:41)
--- NOTE | 2024-10-01 15:34 | Electrocardiogram Report ---
Test Reason : Blood Pressure : */* mmHG Vent. Rate : 113 BPM Atrial Rate : 113 BPM P-R Int : 160 ms QRS Dur : 88 ms QT Int : 318 ms P-R-T Axes : 43 -23 39 degrees QTcB Int : 436 ms Sinus tachycardia Otherwise normal ECG When compared with ECG of 17-Mar-2023 18:29, Premature ventricular complexes are no longer Present Confirmed by Cesar Garvin ([id number]) on 10/01/2024 3:33:45 PM Referred By: REFERRED SELF Confirmed By: Cesar Garvin
--- NOTE | 2024-10-01 16:47 | Hospitalist Progress Note ---
Date of Service October 01, 2024 Assessment & Plan (1) Infection due to human metapneumovirus (hMPV): (2) COPD exacerbation: Plan This is a 49 year old male with past medical history of pulmonary hypertension, COPD, Charcot Manda Tooth disease, GERD, osteoporosis, hx PE (2015) who p resented to the ED on 09/30 with chief complaint of cough. #hMPV/COPD exacerbation Patient w/ ~2 days of cough and SOB. hx of COPD. Uses chest vest at home for coughing. CXR: negative for pneumonia BioFire + for Human metapneumovirus CBC w/ chronic leukopenia/anemia, appears stable w/ prior CBC BMP w/ stable electrolytes and kidney function Trop 2.4 IV Methylprednisolone 40mg BID starting 10/01 Chest vest ordered BID, Incentive spirometer Duonebs q6h scheduled. s/p Azithromycin 500mg in ED, continue 250mg PO daily x 4 additional days O2 prn if sat falls below 90 Isolation precautions AM CBC/BMP Chronic conditions: Mental Health: duloxetine, Lamotrigine Neuropathy: gabapentin Hypothyroidism: Levothyroxine GERD: PPI HTN: Verapamil Hx of PE: Xarelto DVT prophylaxis: Xarelto Code: full Anticipate discharge within the next 1-2 days dependent on how patient improves. Admission and Anticipated Discharge Date Admission Date: September 30, 2024 Subjective Patient seen and examined this afternoon. Patient states he feels about the same as yesterday. he reports he is still coughing and is unable to bring up much mucus but he feels that it is in his lungs. He was concerned because when he starts to rest and doze off to sleep his oxygen has been dropping to 88%, patient has been on and off 2L of oxygen for the day. Discussed w/ patient he does his 2L w/ his BiPAP at bedtime and him sleeping may be why his oxygen is dropping. He denies F/C. He is hoping to return home within the next 1-2 days. Physical Exam Constitutional: WD/WN, vitals as above Eyes: PERRL, conjunctivae normal, anicteric sclerae Respiratory: diminished lung sounds b/l, no wheezing Cardiovascular: RRR, no murmur, no edema Musculoskeletal: brace on R knee Psychiatric: A+Ox3, euthymic affect Results & Data Results & Data Vital Signs (Past 12 Hours) Vital Signs Pulse Pulse Resp BP Pulse Ox O2 Del Method O2 Flow Rate 10/01/24 15:21 115 H 10/01/24 15:00 113 H 18 133/84 93 Room Air 10/01/24 13:55 109 H 14 94 Room Air 10/01/24 11:00 99 H 20 103/80 99 Nasal Cannula 2 10/01/24 08:00 74 20 114/71 97 Nasal Cannula 2 10/01/24 07:18 88 10/01/24 07:03 88 16 95 Room Air 10/01/24 05:00 92 H 16 110/82 95 CPAP PG Care Time/CCT Total # of Minutes Spent Total Time Spent with Patient: Total time spent is greater than 50% in coordination of care (as documented) at patient's floor/unit and/or counseling patient: Coding Level of Care Code 02450 SUB INP/OBS CARE 2/35MIN Diagnoses Infection due to human metapneumovirus (hMPV) B34.8 COPD exacerbation J44.1
[2024-10-01] MEDS: RIVAROXABAN 20 MG TAB PO SCH (19:58)
[2024-10-02 06:42] LABS: Hematocrit (blood only) 40.2 % (42.0-52.0); Hemoglobin 13.3 g/dl (14.0-18.0); Mean Corpuscular Hemoglobin 28.5 pg (25.0-34.0); Mean Corpuscular Hgb Conc 33.1 g/dL (32.0-36.0); Mean Corpuscular Volume 86.1 fL (80.0-100.0); Mean Platelet Volume 9.2 fL (9.4-12.4); Platelet Count 166 K/uL (130-400); RDW Coefficient of Variation 17.5 % (11.5-14.5); RDW Standard Deviation 54.9 fL (36.4-46.3); Red Blood Count 4.67 M/uL (4.70-6.10); White Blood Count 4.64 K/ul (4.8-10.8)
[2024-10-02 06:55] LABS: Calcium 8.2 mg/dl (8.6-10.3); Creatinine Clr Calc Pharmacy 124.5 ml/min; Potassium 4.4 mmol/L (3.5-5.1)
[2024-10-02 08:00] VITALS: O2SAT 92
[2024-10-02 11:09] VITALS: PULSE 90; RESP 22; TEMP 98.8
[2024-10-02 12:21] VITALS: BP 133/84
--- NOTE | 2024-10-02 17:36 | Discharge Summary ---
Discharge Summary Date of Service October 02, 2024 Principal Dx & Hospital Course #1 = Principal Diagnosis (1) Infection due to human metapneumovirus (hMPV): (2) COPD exacerbation: Plan This is a 49 year old male with past medical history of pulmonary hypertension, COPD, Charcot Manda Tooth disease, GERD, osteoporosis, hx PE (2015) who presented to the ED on 09/30 with chief complaint of cough. On day of discharge, Mr. Vazquez was stable on room air with ambulation, telemetry revealed NSR 80s with PVCs. #hMPV/COPD exacerbation Patient w/ ~2 days of cough and SOB. Uses chest vest at home for coughing. [employer] + for Human metapneumovirus CBC w/ chronic leukopenia/anemia, appears stable with prior CBC Received IV methylprednisolone while hospitalized, discharged on prednisone 40 mg daily x 3 days Continue Azithromycin 250 mg daily x 2 additional doses at home to complete 5 day course Continue chest vest, incentive spirometer, home inhalers, supportive care Recommend PCP follow-up in 1-2 weeks Chronic conditions: Mental Health: duloxetine, Lamotrigine Neuropathy: gabapentin Hypothyroidism: Levothyroxine GERD: PPI HTN: Verapamil Hx of PE: Xarelto DVT prophylaxis: Xarelto Code: full Dispo: discharged home 10/02/24 Notes For Next Care Provider Medication Changes From Visit Prednisone 40 mg PO daily x 3 days Azithromycin 250 mg PO daily x 2 days Admission HPI Per Admitting Provider This is a 49 year old male with past medical history of pulmonary hypertension, COPD, Charcot Manda Tooth disease, GERD, osteoporosis, hx PE (2015) who presented to the ED on 09/30 with chief complaint of cough. Patient was seen and examined, present. Patient reports that for about the last two days he has been coughing and has been short of breath. He uses a cough vest at home that has been helping him produce mucus up. He admits to chest discomfort w/ deep breaths and coughing. He denies fever, chills, nausea, vomiting, diarrhea. Denies any urinary symptoms. Denies any lower extremity edema. he also recently fractured his right patella and has been following with Dr. Perry for this. He is compliant with his daily medications including his Xarelto. While in the ED, patient was found to be positive for human metapneumovirus. CXR was negative for pneumonia. He was given 125mg IV methylprednisolone and duoneb in the ED. Code status discussed w/ patient and he is a full code. Discharge Exam General: No acute distress, nondiaphoretic, well-developed, well-nourished. Cardiac: Regular rate and rhythm without murmurs gallops or rubs. Pulm: Clear to auscultation bilaterally without wheezes, rales or rhonchi. Normal respiratory effort. 92% on room air. Abdominal: Soft, nontender, nondistended. Bowel sounds present. MSK: Brace on right LE. Neuro: A&O x3. No focal neurological deficits. Discharge Plan Discharge Items Patient Disposition: Home - Self-Care Reason For Visit: COUGH Discharge Diagnosis: Human metapneumovirus COPD exacerbation Activity: Resume your previous activity Non-emergency contact: Primary Care Provider Call non-emergency contact if: you have any medication questions and your symptoms worsen Follow-up/Referrals: Marco Lantigua DO [Primary Care Provider] - 10/09/24 11:30 am () Diet: Gluten Free and Heart Healthy Addtl Attending Provider Instructions: Mr. Vazquez, You were admitted to the hospital with human metapneumovirus and a COPD exacerbation. The human metapneumovirus is likely what caused your symptoms of coughing and shortness of breath prior to coming to the hospital. Your chest x- ray was negative for a pneumonia infection. You were treated with IV steroids, breathing treatments, and supportive care while in the hospital and greatly improved. Your prescriptions on discharge have been sent to the [facility] pharmacy in [place]. Upon discharge from the hospital: * Take prednisone (oral steroid) 40 mg daily x 3 additional days starting 10/03/2024. This is to complete your steroid taper. * Take azithromycin (oral antibiotic/anti-inflammatory effects) 1 tablet daily x 2 additional days starting 10/03/2024. This is for treatment of your COPD exacerbation. * Continue your chest vest, inhalers, breathing treatments as directed at home. * Continue your other home medications as prescribed. * Follow-up with your PCP in 1-2 weeks. Please return to the hospital if you experience any of the following: Shortness of breath, difficulty breathing, chest pain, confusion, passing out, or any other symptoms concerning for you. It was a pleasure taking care of you while you were in the hospital! Pending Studies at Discharge: No Stand-Alone Forms: My [facility], Smoking Cessation Medications and DC Order Prescriptions: New azithromycin 250 mg Tablet 250 mg PO QAM Qty: 2 0RF prednisone 20 mg tablet 40 mg PO DAILY 3 Days Qty: 6 0RF Continued arformoterol 15 mcg/2 mL solution for nebulization 2 ml INHALATION BID Qty: 360 1RF Xarelto 20 mg tablet 20 mg PO QAM Qty: 90 1RF levothyroxine 50 mcg tablet 50 mcg PO QAM Qty: 90 3RF sodium chloride 7 % solution for nebulization 1 inh inhalation BID Qty: 360 0RF clonazepam [Klonopin] 0.5 mg tablet 1 mg PO BID Qty: 180 1RF verapamil 120 mg tablet extended release 120 mg PO HS Qty: 90 3RF gabapentin 300 mg capsule 300 - 600 mg PO TID Qty: 270 1RF Rx Instructions: 300mg am, 300 noon, 600mg nightly orally three times a day; budesonide 0.5 mg/2 mL suspension for nebulization 0.5 mg INHALATION BID Qty: 360 3RF docusate sodium [Stool Softener] 100 mg tablet 100 mg PO QAM methocarbamol 750 mg tablet 750 mg PO TID PRN (Reason: muscle spasm) Qty: 30 0RF ascorbic acid (vitamin C) 500 mg tablet 1,000 mg PO QAM cholecalciferol (vitamin D3) 2,000 unit capsule 2,000 units PO QAM tramadol 50 mg tablet 50 mg PO Q6H PRN (Reason: pain) Qty: 30 0RF (DME) Hospital Bed Homecare [facility] [place] See Rx Instructions .Route Qty: 1 0RF Rx Instructions: As directed duloxetine 60 mg capsule,delayed release(DR/EC) 60 mg PO BID Qty: 180 3RF multivitamin Tablet 1 tab PO QAM calcium carbonate-vitamin D3 [Calcium 600 + D(3)] 600 mg(1,500mg) -400 unit Tablet 1 tab PO BID epinephrine [EpiPen 2-Dustin] 0.3 mg/0.3 mL auto-injector 0.3 mg IM Q15M PRN (Reason: Anaphylaxis) Patient 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 Prolia 60 mg/mL syringe 60 mg subcut .every 6 months Patient Comments: upcoming Sep 04 2024 Rx Instructions: next due april diclofenac sodium 1 % Gel 4 g TOPICAL BID PRN (Reason: Pain) levalbuterol HCl 1.25 mg/3 mL solution for nebulization 1.25 mg INH BID Patient Comments: pt states uses every am and then Q4hrs when needed omega-3 fatty acids 1,000 mg Capsule 1,000 mg PO QAM lamotrigine 25 mg tablet 25 mg PO HS azelastine 137 mcg (0.1 %) Aerosol,[place] 2 spray INTRANASAL QAM Rx Instructions: administer into each nostril [place] 210 mg/1.91 mL (110 mg/mL) syringe 210 mg subcut MONTHLY levalbuterol tartrate 45 mcg/actuation Hfa Aerosol Inhaler 1 puff INHALATION UD PRN (Reason: asthma) amoxicillin 500 mg tablet 2,000 mg PO UD PRN (Reason: pre dental) Rx Instructions: 4 tabs 1 hour prior to procedure pantoprazole 40 mg tablet,delayed release (DR/EC) 40 mg PO QAM Rx Instructions: TAKE 1 TABLET DAILY IN THE MORNING montelukast 10 mg tablet 10 mg PO QAM ofloxacin 0.3 % drops 5 drp otic (ear) .every 3 days Patient Comments: 5 drops each ear every 3 days. Rx Instructions: 2 bottles per month, administed 3 month (6 bottles) supply Discharge Orders: Discharge Order (Routine); Ordered 10/02/24 Ordered By: Ada Warren Admission Data Admit Date/Time: 09/30/24 16:24 Attending Provider: Abel Garcia Admit Provider: Abel Garcia Primary Care Provider: Marco Lantigua Other Providers: Abel Garcia Other Interventions: Discharge Summary Assessment (RN) Last Done: 10/02/24 12:19 Hospital Stay Data Consultations 09/30/24 15:57 ED Decision to Admit Stat Pending Results Patient Have Any Pending Studies at Discharge: No Discharge Instructions Given to Patient (Per Discharging Provider) Mr. Vazquez, Adam were admitted to the hospital with human metapneumovirus and a COPD exacerbation. The human metapneumovirus is likely what caused your symptoms of coughing and shortness of breath prior to coming to the hospital. Your chest x- ray was negative for a pneumonia infection. You were treated with IV steroids, breathing treatments, and supportive care while in the hospital and greatly improved. Your prescriptions on discharge have been sent to the [facility] pharmacy in [place]. Upon discharge from the hospital: * Take prednisone (oral steroid) 40 mg daily x 3 additional days starting 10/03/2024. This is to complete your steroid taper. * Take azithromycin (oral antibiotic/anti-inflammatory effects) 1 tablet daily x 2 additional days starting 10/03/2024. This is for treatment of your COPD exacerbation. * Continue your chest vest, inhalers, breathing treatments as directed at home. * Continue your other home medications as prescribed. * Follow-up with your PCP in 1-2 weeks. Please return to the hospital if you experience any of the following: Shortness of breath, difficulty breathing, chest pain, confusion, passing out, or any other symptoms concerning for you. It was a pleasure taking care of you while you were in the hospital! Supervising Physician Co-Signing Physician Notes I personally saw and examined the patient. I independently reviewed the labs, EKG, imaging, problem list, medication list, past medical history and family history. I verified all go points and agree with Ada Warren PA-C with the following exceptions and/or additions: None Total Time Total Time Spent Total Time Spent (In Minutes): Greater than 30 minutes spent completing this discharge process including direct patient care, medication reconciliation, documentation, review of labs and images, and coordination of care. Coding Level of Care Code 52338 INP/OBS DISCH >30 MIN Diagnoses Infection due to human metapneumovirus (hMPV) B34.8 COPD exacerbation J44.1
== END 2024-10-02 13:17 | disposition home or self-care (01) | DRG 190 ==
LOC: ED 12:32 → EDINP 16:24 → 2W 19:26